=== PATIENT | female | born 1955 | race Caucasian/White ===

== ENCOUNTER 2024-06-13 07:48 | Day surgery (SDC) | payer MEDICARE, OTHER, SELFPAY ==
[2024-06-13] VITALS (21 sets, daily range): BP systolic 92–120; BP diastolic 50–67; PULSE 66–79; RESP 16–18; TEMP 36.6–37.3; O2SAT 74–96; BMI 29.0
--- NOTE | 2024-06-13 08:07 | DCINST_ITS ---
Discharge Instructions Diet Discharge Diet: No restrictions Activity Discharge Activity: Return to Normal Activity (In 2 days) Additional Activity Instructions:: No strenuous activity, exercise or heavy lifting for 2 days Dressing / Incision Call your doctor if your incision/area has: Continuous Slow Oozing, Sudden Increased Bleeding and Foul Smelling Discharge Call your doctor if you observe: Fever of 101 or Higher, Inability to urinate and Inability to have a bowel movement Follow Up Care Please Follow Up With: Jenny Correa MD When: The office will call her to make a follow-up arrangement for in 1 to 2 weeks. Test Results: Test results from this visit will be discussed in further detail at your follow- up appointment, if applicable. Discharge Plan Admission Attending Provider: Jenny Correa Primary Care Provider: [facility] Instructions Print Language: Malawian Discharge Orders/Prescriptions Prescriptions: New cephalexin 500 mg capsule 500 mg PO Q12 3 Days Qty: 6 0RF Continued atorvastatin 80 mg tablet 80 mg PO DAILY citalopram 40 mg tablet 40 mg PO DAILY albuterol sulfate 90 mcg/actuation HFA aerosol inhaler 2 puff INHALATION Q4H PRN PRN (Reason: wheezing) bupropion HCl 150 mg tablet extended release 24 hr 150 mg PO DAILY budesonide-formoterol 160-4.5 mcg/actuation HFA aerosol inhaler 2 puff INHALATION BID gabapentin 300 mg capsule 300 mg PO DAILY aspirin [Ban Chewable Aspirin] 81 mg tablet,chewable 1 tab PO DAILY Referrals / Follow Up: [facility] [Other] Disposition Disposition (needs filled in before D/C Order can be placed): Home, Self Care
--- NOTE | 2024-06-13 08:16 | PCM.PRE.AN2 ---
ASA Classification* ASA Classification ASA Classification: 2 Assessment & Plan Anesthesia* Anesthesia Assessment Anesthesia Assessment: Discussed sedation and/or anesthesia options, risks, benefits, and alternatives with patient/parents/legal guardian/POA. Questions invited. The patient/parents/legal guardian/POA seems to understand and agrees to proceed with anesthesia plan. Reviewed the physical assessment, medical history, allergy history and patient home medications list prior to surgery/procedure/anesthetic and documented any changes. Performed airway and anesthesia risk assessments. 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 When Was Last Pacemaker Check QUESTION #4 FULL TEXT: You/Your Family Experience fever (hyperthermia) with Anesthesia Last Oral Intake Last Oral intake: Last Oral Intake NPO since Meds taken in AM with sips of water? Meds patient instructed to take am of surgery PONV PONV - catalyst operator chief: PONV - catalyst operator chief Female Yes 05/30/24 14:00 HX of Motion Sickness No 05/30/24 14:00 HX of N/V After Surgery No 05/30/24 14:00 Non-Smoker Yes 05/30/24 14:00 Duration of Surgery greater No 05/30/24 14:00 than 60 minutes Number of Risk Factors 2 05/30/24 14:00 PONV Score Moderate Risk 05/30/24 14:00 Respiratory Assessment Respiratory Assessment - catalyst operator chief: Respiratory Tract Infection Hx - catalyst operator chief Hx Respiratory Tract Infection No 05/30/24 14:00 STOP Sleep Apnea STOP Sleep Apnea - catalyst operator chief: STOP Sleep Apnea - catalyst operator chief Hx Hypertension No 05/30/24 14:00 Hx Sleep Apnea No 05/30/24 14:00 CPAP BIPAP Do you snore loudly (louder No 05/30/24 14:00 than talking or can be heard Do you often feel tired/ No 05/30/24 14:00 fatigued/ sleepy during daytime? Has anyone observed you stop No 05/30/24 14:00 breathing during sleep? STOP Results Negative 05/30/24 14:00 QUESTION #5 FULL TEXT : Do you snore loudly (louder than talking or can be heard through closed doors)? 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 Specify any problems Hx of Preganancy in last 3 No 05/30/24 14:00 Months Nurse Filling Out Transfusion JZOLLINGE 05/30/24 14:00 & Questions: Date: 05/30/24 05/30/24 14:00 Time: 14:02 05/30/24 14:00 Patient unable to answer at this time (ie. confused, unrespo /Reproduction History /Reproductive History - catalyst operator chief: /Reproductive Hx- catalyst operator chief Hx Now No 05/30/24 14:00 Gestational Age (in weeks): EDC: Hx Hx Para Hx Section SAB No 05/30/24 14:00 Active Medications Active Medications: Current Medications Generic Name Dose Route Start Last Admin Trade Name Freq PRN Reason Stop Dose Admin Cefazolin Sodium 2 gm/ Sodium 110 mls @ 150 mls/hr 06/13/24 09:20 Chloride IV 06/13/24 10:03 INTRAOP ONE Lactated Ringer's 1,000 mls @ 15 mls/hr 06/13/24 08:00 IV .Q48H HERNANDEZ PFSH Medical History Post-menopausal Wears glasses Depression Former smoker Asthma Shortness of breath on exertion Home Medications ?Medication ?Instructions ?Recorded ?Last Taken ?Type albuterol sulfate 90 mcg/actuation 2 puff inhalation Q4H PRN PRN 05/30/24 Unknown History aerosol inhaler wheezing aspirin 81 mg chewable tablet 1 tab PO DAILY 05/30/24 06/12/24 History (Ban Chewable Low Dose Aspirin) atorvastatin 80 mg tablet 80 mg PO DAILY 05/30/24 06/12/24 History budesonide-formoterol HFA 160 2 puff inhalation BID 05/30/24 06/13/24 06:00 History mcg-4.5 mcg/actuation aerosol inhaler bupropion HCl 150 mg 24 hr tablet, 150 mg PO DAILY 05/30/24 06/12/24 History extended release citalopram 40 mg tablet 40 mg PO DAILY 05/30/24 06/12/24 History gabapentin 300 mg capsule 300 mg PO DAILY 05/30/24 06/12/24 History cephalexin 500 mg capsule 500 mg PO Q12 post-operative 3 06/13/24 Unknown Rx days #6 CAPSULES Allergy/AdvReac Type Severity Reaction Status Date / Time No Known Allergies Allergy Verified 06/13/24 08:11 Surgical History Hx of section Hx of cholecystectomy Hx of colonoscopy Social History Smoking Status: Former smoker Review of Systems (Anesthesia) ROS Narrative System reviewed and no additional complaints, except as documented.
[2024-06-13] MEDS: Lactated Ringers 1,000 ML 15 ML IV (08:28)
[2024-06-13] MEDS: Cefazolin 2 GM in 0.9% Normal Saline (100mL Bag) 100 ML IV (09:35)
--- NOTE | 2024-06-13 09:57 | PCM.POST.ANE ---
Anesthesia: Postop Eval I Current Vital Signs Temperature: 98.1 F Pulse Rate: 74 Blood Pressure: 103/56 Respiratory Rate: 16 Pulse Ox: 74 Oxygen Delivery Method: Simple Mask Oxygen Flow Rate (L/min): 8 Assessment Airway patent: Yes Spontaneous unlabored respirations: Yes Mental status: Awake and Calm nausea: No Vomiting: No Anesthesia Complication: No Fluid Hydration Crystalloid volume administer (ml): 600 Total IV fluid infused: 600 Progress Note Anesthesia document: Postop Eval 1 completed: Yes
--- NOTE | 2024-06-13 10:14 | PCM.OPRPT ---
Operative Report (Standard) Operative Information Date of Procedure: 06/13/24 Pre-Operative Diagnosis: Stress urinary incontinence, intrinsic sphincter deficiency Post-Operative Diagnosis: Same Surgery/Procedure Performed: Cystoscopy with Bulkamid injection cigarette seller: No Type of Anesthesia: MAC RN Documented Start/Stop Times: Operation Date: 06/13/24 09:20 Case Time Into Pre-Op 06/13/24 07:56 Anesthesia Start 06/13/24 09:26 Into Room 06/13/24 09:26 Out of Pre-Op 06/13/24 09:26 Procedure End 06/13/24 09:45 Anesthesia End 06/13/24 09:51 Out of Room 06/13/24 09:51 Into Recovery 06/13/24 09:55 Procedure Start Time: 09:40 Procedure Stop Time: 09:45 Select all DRAINS/GRAFTS/IMPLANTS that apply: Implanted device Implanted device details: Bulkamid Estimated Blood Loss: <5cc Specimen collected: No Description of surgery: The patient is a 69-year-old female with 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 Informed consent was obtained. She was taken to the operating room and placed on the operating room table. Anesthesia monitored the head, neck, airway, IV access and vital signs throughout the case. Once anesthesia was readily ministered she was placed into dorsolithotomy position and was prepped and draped in usual sterile fashion. Using the Bulkamid scope, the urethra was intubated and the end of the scope was placed at the bladder neck. The needle was inserted into the bladder lumen to the 2 cm kiara and the whole apparatus was brought back 2 cm. The needle with the bevel in the medial position was inserted superficially into the urethra at the 7 o'clock position where one half of a syringe was injected and a pillow was formed. This process was then repeated at the 5 o'clock position, 1 o'clock position and 11:00 positions. The tissue appeared to be coapted. The cystoscope was removed. The patient was awakened and taken to the recovery room in good condition. There were no complications during the procedure. Surgical Findings: Wide open urethra consistent with ISD. Complications Complications: No Admit VTE Documentation VTE Present on Admission: Yes VTE Mechan Device Prophylaxis: SCD's VTE Pharm Prophylaxis ordered?: No Reason prophylaxis not ordered: Treatment Not Indicated
[2024-06-13] MEDS: Ipratropium/Albuterol Sulfate 3 ML AMPUL.NEB INHALATION (11:17)
--- NOTE | 2024-06-13 15:07 | POSTOPAN2_ITS ---
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 Spontaneous unlabored Yes 06/13/24 09:58 METAL WINDOW SCREEN [email or web address] respirations Mental status Awake,Calm 06/13/24 09:58 METAL WINDOW SCREEN [email or web address] nausea No 06/13/24 09:58 METAL WINDOW SCREEN [email or web address] Vomiting No 06/13/24 09:58 METAL WINDOW SCREEN [email or web address] Anesthesia Postop Eval I: Fluid Summary Crystalloid volume administer 600 06/13/24 09:58 METAL WINDOW SCREEN [email or web address] (ml) Colloids volume administered ( ml) Blood Product volume administered (ml) Total IV fluid infused 600 06/13/24 09:58 METAL WINDOW SCREEN [email or web address] Anesthesia Postop Eval I: Summary Notes Anesthesia Complication No 06/13/24 09:58 METAL WINDOW SCREEN [email or web address] Anesthesia Complication Comment: Post-operative progress note Anesthesia: Postop Eval II Evaluation Mental status: Awake and Calm Pain Level: 0 nausea: No Vomiting: No Progress Note Post-operative progress note: Patient took a prolonged amount of time in PACU to get off of her nasal cannula oxygen. She was not short of breath. She was not overly sedated. Every trial of room air the patient would drop into the mid to low 80s. We had the patient regularly using an inspiratory spirometer and gave her a DuoNeb breathing treatment. She was otherwise asymptomatic and her vital signs were stable. Eventually at almost 3 hours the patient did manage to keep her sats above 90% and the patient was discharged from PACU. She is instructed to continue to use her inspiratory spirometer for the next day. Complications Anesthesia Complication: Yes Anesthesia Complication Comment:: Prolonged stay in PACU secondary to desaturation on room air with no clear-cut etiology. Patient was only on MAC sedation anesthetic. She was then awake and alert the entire PACU stay. Sedation does not seem to explain the poor saturations.
--- NOTE | 2024-07-18 11:20 | PCM.HP.STD ---
HPI - General HPI Narrative KASSANDRA SMITH, is a 69 F who presents for cystoscopy and Bulkamid injection for management of her intrinsic sphincter deficiency and stress urinary incontinence. Informed consent was PFS Medical History (Updated 07/18/24 @ 11:[address] Jenny Correa MD) SHAQ (stress urinary incontinence, female) Intrinsic sphincter deficiency Post-menopausal Wears glasses Depression Former smoker Asthma Shortness of breath on exertion Home Medications ?Medication ?Instructions ?Recorded ?Last Taken ?Type albuterol sulfate 90 mcg/actuation 2 puff inhalation Q4H PRN PRN 05/30/24 Unknown History aerosol inhaler wheezing aspirin 81 mg chewable tablet 1 tab PO DAILY 05/30/24 06/12/24 History (Ban Chewable Low Dose Aspirin) atorvastatin 80 mg tablet 80 mg PO DAILY 05/30/24 06/12/24 History budesonide-formoterol HFA 160 2 puff inhalation BID 05/30/24 06/13/24 06:00 History mcg-4.5 mcg/actuation aerosol inhaler bupropion HCl 150 mg 24 hr tablet, 150 mg PO DAILY 05/30/24 06/12/24 History extended release citalopram 40 mg tablet 40 mg PO DAILY 05/30/24 06/12/24 History gabapentin 300 mg capsule 300 mg PO DAILY 05/30/24 06/12/24 History cephalexin 500 mg capsule 500 mg PO Q12 post-operative 3 06/13/24 Unknown Rx days #6 CAPSULES Allergy/AdvReac Type Severity Reaction Status Date / Time No Known Allergies Allergy Verified 06/13/24 08:11 Surgical History Hx of section Hx of cholecystectomy Hx of colonoscopy Social History Smoking Status: Former smoker ROS Constitutional Constitutional: Reports systems reviewed and no addt'l complaints, except as documented; Denies change in weight, chills, fatigue, fever(s) or weakness Eyes Eyes: Reports systems reviewed and no addt'l complaints, except as documented ENT HEENT: Reports systems reviewed and no addt'l complaints, except as documented Cardiovascular Cardiovascular: Denies chest pain, dizziness, dyspnea, lightheadedness, nausea, tachypnea or vomiting Respiratory/Chest Respiratory/Chest: Denies chest congestion, chest tightness or cough Gastrointestinal Gastrointestinal: Denies abdominal pain, change in bowel habits, nausea or vomiting Genitourinary Genitourinary: Reports urinary incontinence; Denies anuria, hematuria, urinary frequency or urinary urgency Musculoskeletal Musculoskeletal: Reports systems reviewed and no addt'l complaints, except as documented; Denies difficulty walking, muscle weakness or numbness Integumentary Integumentary: Reports systems reviewed and no addt'l complaints, except as documented Neurologic Neurologic: Reports systems reviewed and no addt'l complaints, except as documented Psychiatric Psychiatric: Reports systems reviewed and no addt'l complaints, except as documented Endocrine Endocrinology: Reports systems reviewed and no addt'l complaints, except as documented Hematologic/Lymphatic Hematologic/Lymphatic: Reports systems reviewed and no addt'l complaints, except as documented Allergic/Immunologic Allergic/Immunologic: Reports systems reviewed and no addt'l complaints, except as documented Vital Signs Vital Signs Vital Signs: Weight Weight: 83.915 kg Body Mass Index (BMI) 29.0 Physical Exam Const alert, oriented x3 and no apparent distress General Appearance: cooperative, comfortable, well kempt and well developed HEENT normocephalic, head/scalp atraumatic, hearing grossly normal bilaterally, external ears normal, external nose normal and moist oral mucous membranes Eyes General Eye: normal appearance of both eyes Neck supple General: trachea midline Lymph Lymphatic: no lymphedema noted Chest inspection of chest normal Chest: symmetrical chest wall rise Resp normal respiratory effort, normal air movement and no retractions Effort and Inspection: able to speak in complete sentences and symmetric chest movement Cardio regular rate and regular rhythm GI soft to palpation, non-tender and non-distended no CVA tenderness and external exam normal Back/Spine no CVA tenderness Extremity normal to inspection Skin no rashes or lesions noted, no jaundice, no petechiae and no mottling Neuro oriented x3, CN's II-XII intact bilaterally and moves all extremities Psych mental status grossly normal, thought process normal and cooperative Assessment & Plan Assessment/Plan (1) Intrinsic sphincter deficiency: (2) SHAQ (stress urinary incontinence, female): PLAN: Plan Proceed with cystoscopy and Bulkamid as scheduled
== END 2024-06-13 13:47 | disposition home or self-care (01) ==
LOC: SDC 07:50 → AC 07:51
PROVIDERS: Referring Provider Urology; Visit Provider Urology
PROC: 3E0K8GC Introduction of Other Therapeutic Substance into Genitourinary Tract, Via Natural or Artificial Opening Endoscopic (ICD-10-PCS; CPT 52287; principal; 2024-06-13 09:10)
DX: N39.3 Stress incontinence (female) (male) (principal); N36.42 Intrinsic sphincter deficiency (ISD); F32.A Depression, unspecified; Z79.82 Long term (current) use of aspirin; Z79.899 Other long term (current) drug therapy; Z87.891 Personal history of nicotine dependence
CPT/HCPCS: 51715; 00910; 94640; L8606; J2405

== ENCOUNTER 2024-09-26 06:53 | Day surgery (SDC) | payer MEDICARE, OTHER, SELFPAY ==
[2024-09-26] VITALS (8 sets, daily range): BP systolic 94–120; BP diastolic 51–71; PULSE 67–87; RESP 16–18; TEMP 2.4–36.7; O2SAT 92–99; BMI 28.0
--- OUTSIDE RECORDS SUMMARY | 2024-09-26 07:00 | XMS RPT_ITS | CCD ---
Author Organization [facility] Care Team Providers Care Bi Tri Operator Name Role Phone MASOODLLI, ALTHEA Unavailable Unavailable NETTIE, ALTHEA Unavailable Unavailable MACK RASMUSSEN Unavailable Unavailable Marcela Buchanan Unavailable Unavailable Unavailable Marcela Buchanan MD Primary Care Provider Naty Hall Unavailable Marcela Buchanan MD Primary Care Provider Marcela Buchanan MD Primary Care Provider Marcela Buchanan MD Primary Care Provider Naty Hall DO Primary Care Provider Naty Hlal DO Unavailable [phone] Ashtyn Rome LPN Unavailable Unavailable Marcela Buchanan MD Primary Care Provider Marcela Buchanan MD Primary Care Provider [phone] Bright Escobedo DO A Primary Care Provider Mray Shi LPN Unavailable Unavailable Jennifer Wen RN Unavailable Unavailable Gregg DO Bright A Primary Care Provider BRIGHT ESCOBEDO A Primary Care Unavailable DEBRA MEJIA Referring Unavailable QIAN ESCOBEDOEY A Primary Care Unavailable Miguel Hdez LPN Unavailable IVAN TALAVERA Referring Unavailable EL, MARCELA Primary Care Unavailable IVAN TALAVERA Referring Unavailable EL, MARCELA Primary Care Unavailable KAYODE MCKEON Attending Unavailable SELF Referring Unavailable EL, MARCELA Primary Care Unavailable APICELLA, IVAN Attending Unavailable EL, MARCELA Primary Care Unavailable APICELLA, IVAN Referring Unavailable EL, MARCELA Primary Care Unavailable APICELLA, IVAN Referring Unavailable EL, MARCELA Primary Care Unavailable APICELLA, IVAN Attending Unavailable APICELLA, IVAN Referring Unavailable EL, MARCELA Primary Care Unavailable KAYODE MCKEON Referring Unavailable EL, MARCELA Primary Care Unavailable LESLIEABKAYODE ERIC Referring Unavailable EL, MARCELA Primary Care Unavailable APICELLA, IVAN Attending Unavailable APICELLA, IVAN Referring Unavailable EL, MARCELA Primary Care Unavailable APICELLA, IVAN Referring Unavailable EL, MARCELA Primary Care Unavailable APICELLA, IVAN Referring Unavailable EL, MARCELA Primary Care Unavailable LESLIEABBAKAYODE KAMINSKI Attending Unavailable APICELLA, IVAN Referring Unavailable EL, MARCELA Primary Care Unavailable KHABBAZA, KAYODE Referring Unavailable EL, MARCELA Primary Care Unavailable GURRERI, BRIGHT A Attending Unavailable GURRERI, BRIGHT A Primary Care Unavailable GURRERI, BRIGHT A Attending Unavailable GURRERI, BRIGHT A Primary Care Unavailable GURRERI, BRIGHT A Attending Unavailable GURRERI, BRIGHT A Primary Care Unavailable GURRERI, BRIGHT A Attending Unavailable GURRERI, BRIGHT A Primary Care Unavailable GURRERI, BRIGHT A Attending Unavailable GURRERI, BRIGHT A Primary Care Unavailable Sunny MEJIA, Dr. Alvarado Attending Provider Dr. Jenny Correa MD Referring Provider BRIGHT ESCOBEDO Primary Care Provider [phone] GREGG AMADOR Primary Care Provider Unavailabl e GREGG, AMADOR Referring Provider Unavailable GONZALEZ AYERS Attending Unavailable GURRERI, BRIGHT A Referring Unavailable GURRERI, BRIGHT A Primary Care Unavailable SOFIA WADE Attending Unavailable GURRERI, BRIGHT A Primary Care Unavailable SOFIA WADE Admitting Unavailable ALTAQI, BASEL Consulting Unavailable GURRERI, BRIGHT A Consulting Unavailable DEBRA MEJIA Attending Unavailable GURRERI, BRIGHT A Referring Unavailable GURRERI, BRIGHT A Primary Care Unavailable GURRERI, BRIGHT A Referring Unavailable GURRERI, BRIGHT A Primary Care Unavailable GURRERI, BRIGHT A Referring Unavailable GURRERI, BRIGHT A Primary Care Unavailable JACKIEDEBRA Alicia Attending Unavailable GURRERI, BRIGHT A Primary Care Unavailable MAHERJORDAN Attending Unavailable GURRERI, BRIGHT A Primary Care Unavailable GURRERI, BRIGHT A Primary Care Unavailable GURRERI, BRIGHT A Admitting Unavailable GURRERI, BRIGHT A Attending Unavailable GURRERI, BRIGHT A Consulting Unavailable GURRERI, BRIGHT A Primary Care Unavailable GURRERI, BRIGHT A Primary Care Unavailable MAHER, JORDAN S Attending Unavailable MAHER, JORDAN S Referring Unavailable GURRERI, BRIGHT A Primary Care Unavailable MAHER, JORDAN S Referring Unavailable GURRERI, BRIGHT A Primary Care Unavailable GURRERI, BRIGHT A Referring Unavailable GURRERI, BRIGHT A Primary Care Unavailable GURRERI, BRIGHT A Referring Unavailable GURRERI, BRIGHT A Primary Care Unavailable GURRERI, BRIGHT A Referring Unavailable GURRERI, BRIGHT A Primary Care Unavailable GURRERI, BRIGHT A Referring Unavailable GURRERI, BRIGHT A Primary Care Unavailable Binh, Mireya Barlow DETAIL SERGEANT Referring Unavailable Jenny Correa Attending Unavailable [place], Mireya S DETAIL SERGEANT Primary Care Unavailable [place], Mireya S DETAIL SERGEANT Primary Care Unavailable Jenny Correa Attending Unavailable Jenny Correa Referring Unavailable Binh, Mireya Barlow DETAIL SERGEANT Primary Care Unavailable Jenny Correa Attending Unavailable Jenny Correa Referring Unavailable Medications Current Medications Medication Drug Class(es) Dates Sig (Normalized) Sig (Original) acetaminophen 500 mg oral tablet (10 sources) Start: 09-12-2024 take 1 tablet by mouth every six hours as needed for pain Acetaminophen 500 mg tablet Active 500 mg PO EVERY 6 HOURS as needed for fever or pain September 12, 2024 12:00am Start: 08-15-2024 take 1 tablet by peggy th every eight hours 975 mg, oral, Every 8 hours, First dose (after last modification) on Jacqueline 08/15/24 at 0915, If ordered PRN for pain, nurse is permitted to administer this medication for higher pain scores based on patient preference? Yes Start: 08-14-2024 End: 08-17-2024 take 2 tablets by mouth every six hours for pain acetaminophen (Tylenol) 500 mg tablet Indications: Rotator cuff strain, right, initial encounter Take 2 tablets (1,000 mg) by mouth every 6 hours if needed for mild pain (1 - 3). 60 tablet 08/17/2024 Active Start: 08-14-2024 End: 08-14-2024 take 650 mg by mouth once as needed for pain 650 mg, oral, Once, On Mon08/14/24 at 0830, For 1 dose, Preprocedure, Administer with small amount of water preoperatively., If ordered PRN for pain, nurse is permitted to administer this medication for higher pain scores based on patient preference? Yes Start: 01-05-2024 End: 01-12-2024 take 2 tablets by mouth every six hours acetaminophen (Tylenol) 500 mg tablet Indications: Closed fracture of multiple ribs of right side, initial encounter Take 2 tablets (1,000 mg) by mouth every 6 hours for 7 days. 56 tablet 01/05/2024 12:42 PM EST 01/05/2024 01/12/2024 Active Start: 01-04-2024 take 975 mg by mouth three times daily as needed for pain 975 mg, oral, 3 times daily, First dose (after last modification) on Jacqueline 01/04/24 at 1500, If ordered PRN for pain, nurse is permitted to administer this medication for higher pain scores based on patient preference? Yes Start: 01-03-2024 End: 01-04-2024 take 975 mg by mouth every six hours as needed for pain 975 mg, oral, Every 6 hours scheduled, First dose on Mon01/03/24 at 0000, Phase II/On Unit, If ordered PRN for pain, nurse is permitted to administer this medication for higher pain scores based on patient preference? Yes [id number] 200 actuat albuterol 0.09 mg/actuat metered dose inhaler (20 sources) beta2-Adrenergic Agonist Start: 05-30-2024 Albut bernice Sulfate 90 mcg/actuation HFA aerosol inhaler Active 2 NMA INHALATION EVERY 4 HOURS NEEDED as needed for wheezing May 30, 2024 12:00am Start: 01-03-2024 2.5 mg, nebuli zation, Every 2 hour PRN, shortness of breath, Starting on Mon01/03/24 at 0021 Start: 01-03-2024 take 2 puff(s) by in halation every two hours as needed for wheezing 2 puff, inhalation, Every 2 hour PRN, wheezing, Starting on Mon01/03/24 at 0020, Shake well before use. Start: 05-18-2023 End: 05-31-2024 take 2 puff(s) by inhalation every four hours as needed for wheezing albuterol HFA (PROVENTIL HFA, VENTOLIN HFA) 90 mcg/actuation inhaler Indications: Uncomplicated asthma, unspecified asthma severity, unspecified whether persistent (HCC) Inhale 2 Puffs as instructed every 4 hours as needed for wheezing/shortness of breath. 8 g 5 05/18/2023 Active Start: 05-28-2021 take 2.5 mg by inhal ation every four hours as needed albuterol (PROVENTIL) 2.5 mg /3 mL (0.083 %) nebulizer solution Use 3 mL via nebulizer every 4 hours as needed for wheezing/shortness of breath. 120 Vial 1 05/28/2021 Active Start: 05-28-2021 take 1 puff(s) by in halation every four hours as needed for wheezing, then take 1-2 puff(s) by inhalation every four to six hours as needed for wheezing albuterol HFA (PROVENTIL HFA, VENTOLIN HFA) 90 mcg/actuation inhaler Inhale 1 Puff as instructed every 4 hours as needed for wheezing/shortness of breath. Inhale 1 to 2 puffs every 4 to 6 hours as needed 1 Inhaler 1 05/28/2021 Active Start: 05-28-2021 End: 05-31-2024 take 2.5 mg by inhalation every four hours as needed albuterol 2.5 mg /3 mL (0.083 %) nebulizer solution Inhale 3 mL (2.5 mg) every 4 hours if needed for shortness of breath. 05/28/2021 05/31/2024 Discontinued (Med List Cleanup) Start: 12-06-2019 take 1-2 puff(s) by mouth every four to six hours as needed Albuterol Sulfate HFA 108 (90 Base) MCG/ACT Inhalation Aerosol Solution INHALE 1 TO 2 PUFFS BY MOUTH EVERY 4 TO 6 HOURS NEEDED Quantity: 1 Refills: 3 Ordered: 17-Sep-2020 Marcela Buchanan MD Start : 06-Dec-2019 Active Start: 12-06-2019 take 1-2 puff(s) by mouth every four to six hours as needed Albuterol Sulfate HFA 108 (90 Base) MCG/ACT Inhalation Aerosol Solution INHALE 1 TO 2 PUFFS BY MOUTH EVERY 4 TO 6 HOURS NEEDED Quantity: 1 Refills: 3 Ordered: 17-Sep-2020 Marcela Buchanan MD Start : 06-Dec-2019 Active Comment on above: Inhale 1 Puff as ins tructed every 4 hours as needed for wheezing/shortness of breath. Inhale 1 to 2 puffs every 4 to 6 hours as needed Use 3 mL via nebuliz er every 4 hours as needed for wheezing/shortness of breath. Inhale 2 Puffs as in structed every 4 hours as needed for wheezing/shortness of breath. ascorbic acid 200 mg / beta carotene 1000 unt / cuprous oxide 2 mg / dl-alpha tocopheryl acetate 60 unt / lutein 2 mg / sodium selenate 0.055 mg / zinc oxide 40 mg oral tablet (20 sources) Vitamin C Start: 0 End: 2 take 1 tablet by mouth once daily Vit A,C and Q-Eaglcn-Olfdtd ls (OCUVITE) 300 mcg-200 mg-27 mg-2 mg tab Take 1 tablet by mouth once daily. 10/18/2019 Active Comment on above: Take 1 tablet by peggy th once daily. aspirin 81 mg delayed release oral tablet (20 sources) Platelet Aggregation Inhibitor, Nonsteroidal Anti-inflammatory Drug Start: 5 take 81 mg by mouth once daily 81 mg, oral, Daily, First dose on Mon08/14/24 at 1900, Do not crush, chew, or split. Start: 05-30-2024 Aspirin (Ban Chewable Aspirin) 81 mg tablet,chewable Active 1 {tbl} PO DAILY May 30, 2024 12:00am Comment on above: Take 81 mg by mouth once daily. atorvastatin 80 mg oral tablet (20 sources) HMG-CoA Reductase Inhibitor Start: 6 End: 5 take 1 tablet by mouth once daily Atorvastatin 80 mg tablet Active 80 mg PO DAILY May 30, 2024 12:00am Comment on above: Take 80 mg by mouth daily at bedtime. Take 1 tablet by peggy th daily at bedtime. Budesonide-Formoterol (17 sources) Corticosteroid, beta2-Adrenergic Agonist Start: Budesonide-Formoterol 160-4.5 mcg/actuation HFA aerosol inhaler Active 2 NMA INHALATION TWICE A DAY as needed for wheezing May 30, 2024 12:00am Start: 05-15-2024 End: 08-19-2024 take 2 puff(s) by inhalation twice daily budesonide-formoterol (SYMBICORT) 160-4.5 mcg/actuation inhaler Indications: Uncomplicated asthma, unspecified asthma severity, unspecified whether persistent (HCC) Inhale 2 Puffs as instructed two times a day. 10.2 g 5 05/15/2024 08/19/2024 Discontinued Start: 05-15-2024 End: 08-01-2024 take 2 puff(s) by inhalation twice daily budesonide-formoterol (Symbicort) 160-4.5 mcg/actuation inhaler Inhale 2 puffs twice a day. 05/15/2024 08/01/2024 Discontinued (Med List Cleanup) Start: 05-15-2024 take 2 puff(s) by in halation twice daily budesonide-formoterol (Symbicort) 160-4.5 mcg/actuation inhaler Inhale 2 puffs twice a day. 05/15/2024 Active Start: 05-15-2024 End: 06-14-2024 take 2 puff(s) by inhalation twice daily budesonide-formoterol (Symbicort) 160-4.5 mcg/actuation inhaler Inhale 2 puffs twice a day. 05/15/2024 06/14/2024 Active Start: 05-15-2024 End: 06-14-2024 take 2 puff(s) by inhalation twice daily budesonide-formoterol (SYMBICORT) 160-4.5 mcg/actuation inhaler Indications: Uncomplicated asthma, unspecified asthma severity, unspecified whether persistent (HCC) Inhale 2 Puffs as instructed two times a day. 10.2 g 5 05/15/2024 06/14/2024 Active Start: 05-15-2024 End: 05-15-2024 take 2 puff(s) by inhalation twice daily budesonide-formoterol (SYMBICORT) 160-4.5 mcg/actuation inhaler Indications: Uncomplicated asthma, unspecified asthma severity, unspecified whether persistent (HCC) Inhale 2 Puffs as instructed two times a day. 10.2 g 5 05/15/2024 05/15/2024 Discontinued Start: 05-18-2023 End: 05-18-2023 take 2 puff(s) by inhalation twice daily budesonide-formoterol (SYMBICORT) 160-4.5 mcg/actuation inhaler Indications: Uncomplicated asthma, unspecified asthma severity, unspecified whether persistent Inhale 2 Puffs as instructed two times a day. 11 g 5 05/18/2023 05/18/2023 Discontinued (Changing Therapy/Dosage Form) Comment on above: Inhale 2 Puffs as in structed two times a day. 24 hr buPROPion hydrochloride 150 mg extended release oral tablet (20 sources) Aminoketone Start: End: take 1 tablet by mouth once daily Bupropion Hcl 150 mg tablet extended release 24 hr Active 150 mg PO DAILY May 30, 2024 12:00am take 1 tablet by mouth once stephanie y buPROPion SR (WELLBUTRIN SR) 150 mg 12 hr tablet Take 150 mg by mouth once daily. Active calcium carbonate 1500 mg oral tablet (20 sources) Start: 10-18-2019 take 1 tablet by mouth once daily calcium carbonate (CALTRATE) 600 mg calcium (1,500 mg) tab Take 1,200 mg by mouth once daily. 10/18/2019 Active Start: 10-18-2019 End: 11-09-2021 Calcium 600 MG TABS TAKE 1 T ABLET DAILY. Quantity: 0 Refills: 0 Ordered: 18-Oct-2019 DO Start : 18-Oct-2019 End : 09-Nov-2021 Complete Comment on above: Take 1,200 mg by peggy th once daily. citalopram 20 mg oral tablet (20 sources) Serotonin Reuptake Inhibitor Start: 08-14-2024 take 40 mg by mouth once daily 40 mg, oral, Daily, First dose on Mon08/14/24 at 1900 Start: 01-03-2024 take 40 mg by mouth once daily 40 mg, oral, Daily, First dose on Mon01/03/24 at 0900 Start: 05-26-2015 End: 05-31-2025 take 1 tablet by mouth once daily Citalopram 40 mg tablet Active 40 mg PO DAILY May 30, 2024 12:00am Comment on above: Take 40 mg by mouth once daily. docusate sodium 50 mg / sennosides, fdc 8.6 mg oral tablet (2 sources) Start: 08-15-2024 take 1 tablet by mouth once daily 1 tablet, oral, Nightly, First dose on Mon08/15/24 at 2100 Start: 01-04-2024 take 1 tablet by peggy th twice daily 1 tablet, oral, 2 times daily, First dose on Mon01/04/24 at 0900 0.4 ml enoxaparin sodium 100 mg/ml prefilled syringe (2 sources) Low Molecular Weight Heparin Start: 08-14-2024 inject 40 mg by subcutaneous injection once daily 40 mg, subcutaneous, Daily, First dose on Mon08/14/24 at 1915 Start: 01-02-2024 inject 30 mg by subc utaneous injection every twelve hours 30 mg, subcutaneous, Every 12 hours, First dose on Mon01/02/24 at 2335 120 actuat fluticasone propionate 0.23 mg/actuat / salmeterol 0.021 mg/actuat metered dose inhaler (20 sources) Corticosteroid, beta2-Adrenergic Agonist Start: 10-04-2023 take 2 puff(s) by mouth twice daily fluticasone propion-salmeteroL (Advair HFA) 230-21 mcg/actuation inhaler Indications: Mild persistent asthma without complication (HHS-HCC) Inhale 2 puffs 2 times a day. Rinse mouth with water after use to reduce aftertaste and incidence of candidiasis. Do not swallow. 12 g 11 10/04/2023 Active Start: 07-20-2023 End: 08-19-2023 take 2 puff(s) by inhalation twice daily fluticasone-salmeterol HFA (ADVAIR HFA) 230-21 mcg/actuation inhaler Indications: Hypersensitivity pneumonia (HCC) , Uncomplicated asthma, unspecified asthma severity, unspecified whether persistent Inhale 2 Puffs as instructed two times a day. 12 g 5 07/20/2023 Active Start: 05-18-2023 End: 08-19-2024 take 1 puff(s) by inhalation twice daily fluticasone-salmeterol (ADVAIR DISKUS) 500-50 mcg/dose dsdv Inhale 1 Puff as instructed two times a day. 60 Each 5 05/18/2023 08/19/2024 Discontinued Start: 05-18-2023 take 1 puff(s) by in halation twice daily fluticasone-salmeterol (ADVAIR DISKUS) 500-50 mcg/dose dsdv Inhale 1 Puff as instructed two times a day. 60 Each 5 05/18/2023 Active Start: 05-18-2023 End: 11-14-2023 take 1 puff(s) by inhalation twice daily fluticasone-salmeterol (ADVAIR DISKUS) 500-50 mcg/dose dsdv Inhale 1 Puff as instructed two times a day. 60 Each 5 05/18/2023 11/14/2023 Active Start: 05-18-2023 End: 05-18-2023 take 1 puff(s) by inhalation twice daily fluticasone-salmeterol (ADVAIR DISKUS) 500-50 mcg/dose dsdv Inhale 1 Puff as instructed two times a day. 60 Each 05/18/2023 05/18/2023 Discontinued Start: 03-28-2022 End: 06-16-2023 take 2 puff(s) by inhalation twice daily ADVAIR HFA 230-21 mcg/actuation inhaler Indications: Hypersensitivity pneumonitis (HCC) , Uncomplicated asthma, unspecified asthma severity, unspecified whether persistent INHALE 2 PUFFS INSTRUCTED TWICE DAILY. 12 Each 03/28/2022 09/05/2022 Discontinued Start: 10-22-2021 End: 10-04-2023 take 2 puff(s) by inhalation twice daily Advair HFA 230-21 MCG/ACT Inhalation Aerosol INHALE 2 PUFFS INSTRUCTED TWICE DAILY. Quantity: 12 Refills: 0 Ordered: 22-Oct-2021 DO Start : 22-Oct-2021 Active Start: 10-22-2021 End: 03-28-2022 take 2 puff(s) by inhalation twice daily fluticasone-salmeterol HFA (ADVAIR) 230-21 mcg/actuation inhaler Indications: Hypersensitivity pneumonitis (HCC) , Uncomplicated asthma, unspecified asthma severity, unspecified whether persistent Inhale 2 Puffs as instructed twice daily. 12 g 5 10/22/2021 03/28/2022 Discontinued Start: 10-22-2021 take 2 puff(s) by in halation twice daily fluticasone-salmeterol HFA (ADVAIR) 230-21 mcg/actuation inhaler Indications: Hypersensitivity pneumonitis (HCC) , Uncomplicated asthma, unspecified asthma severity, unspecified whether persistent Inhale 2 Puffs as instructed twice daily. 12 g 5 10/22/2021 Active Start: 07-19-2021 End: 10-22-2021 take 2 puff(s) by inhalation twice daily fluticasone-salmeterol HFA (ADVAIR HFA) 115-21 mcg/actuation inhaler Indications: Uncomplicated asthma, unspecified asthma severity, unspecified whether persistent Inhale 2 Puffs as instructed twice daily. 1 Inhaler 3 07/19/2021 10/22/2021 Discontinued Start: 07-19-2021 End: 10-22-2021 take 2 puff(s) by inhalation twice daily fluticasone-salmeterol HFA (ADVAIR HFA) 115-21 mcg/actuation inhaler Indications: Uncomplicated asthma, unspecified asthma severity, unspecified whether persistent Inhale 2 Puffs as instructed twice daily. 1 Inhaler 3 07/19/2021 10/22/2021 Discontinued Start: 07-19-2021 take 2 puff(s) by in halation twice daily fluticasone-salmeterol HFA (ADVAIR HFA) 115-21 mcg/actuation inhaler Indications: Uncomplicated asthma, unspecified asthma severity, unspecified whether persistent Inhale 2 Puffs as instructed twice daily. 1 Inhaler 3 07/19/2021 Active Start: 06-01-2021 End: 11-09-2021 Fluticasone-Salmeterol 113-1 4 MCG/ACT Inhalation Aerosol Powder Breath Activated INHALE 1 INHALATION INSTRUCTED TWICE DAILY. Quantity: 1 Refills: 0 Ordered: 02-Jun-2021 DO Start : 01-Jun-2021 End : 09-Nov-2021 Complete Comment on above: Inhale 1 Inhalation as instructed twice daily. Inhale 2 Puffs as in structed twice daily. Inhale 1 Puff as ins tructed two times a day. 30 actuat fluticasone furoate 0.2 mg/actuat / vilanterol 0.025 mg/actuat dry powder inhaler (3 sources) Corticosteroid, beta2-Adrenergic Agonist Start: 08-15-2024 take 1 puff(s) by mouth once daily 1 puff, inhalation, Daily RT, First dose on Mon08/15/24 at 0700, Rinse mouth with water after use to reduce aftertaste and incidence of candidiasis. Do not swallow. Start: 01-03-2024 take 1 puff(s) by mo [facility] once daily 1 puff, inhalation, Daily RT, First dose on Mon01/03/24 at 0700, Rinse mouth with water after use to reduce aftertaste and incidence of candidiasis. Do not swallow. Start: 05-28-2021 End: 06-01-2021 fluticasone-vilanterol (BREO ELLIPTA) 100-25 mcg/dose inhaler Inhale 1 Inhalation as instructed once daily. 60 Each 1 05/28/2021 06/01/2021 Discontinued (Cost of medication) Comment on above: Inhale 1 Inhalation as instructed once daily. gabapentin 300 mg oral capsule (19 sources) Anti-epileptic Agent Start: 01-19-2024 End: 05-31-2025 take 1 capsule by mouth once daily Gabapentin 300 mg capsule Active 300 mg PO DAILY May 30, 2024 12:00am Start: 01-04-2024 End: 01-19-2024 take 1 capsule by mouth three times daily gabapentin (Neurontin) 300 mg capsule Indications: Closed fracture of multiple ribs of right side, initial encounter Take 1 capsule (300 mg) by mouth 3 times a day for 7 days. 21 capsule 01/05/2024 12:42 PM EST 01/05/2024 01/19/2024 Discontinued (Reorder) Start: 01-02-2024 End: 01-04-2024 take 1 capsule by mouth three times daily 100 mg, oral, 3 times daily, First dose on Mon01/02/24 at 2335, Phase II/On Unit, Capsules may be opened and sprinkled on food (eg, applesauce, orange juice, pudding ibuprofen 600 mg oral tablet (4 sources) Nonsteroidal Anti-inflammatory Drug Start: 01-02-2024 End: 01-19-2024 take 1 tablet by mouth three times daily at mealtime ibuprofen 600 mg tablet Indications: Closed fracture of multiple ribs of right side, initial encounter Take 1 tablet (600 mg) by mouth 3 times a day for 7 days. Take with Food 21 tablet 01/05/2024 12:42 PM EST 01/05/2024 01/19/2024 Active Start: 04-12-2023 End: 04-17-2023 take 1 tablet by mouth every six hours for pain ibuprofen 600 mg tablet Indications: Sprain of anterior talofibular ligament of left ankle, initial encounter Take 1 tablet (600 mg) by mouth every 6 hours if needed for mild pain (1 - 3) or moderate pain (4 - 6) for up to 5 days. 20 tablet 0 04/12/2023 04/17/2023 Active magnesium amino acid chelate 133 mg oral tablet (3 sources) take 1 tablet by mouth twice daily magnesium, amino acid chelate, 133 mg tablet Take 1 tablet (133 mg) by mouth 2 times a day. Active magnesium oxide 400 mg oral tablet (1 source) Start: 01-03-20 take 400 mg by mouth once daily 400 mg, oral, Daily, First dose on Mon01/03/24 at 0900 meloxicam 15 mg oral tablet (8 sources) Nonsteroidal Anti-inflammatory Drug Start: 06-11-19 End: 10-05-19 take 1 tablet by mouth once daily as needed for pain Meloxicam 15 mg tablet Active 15 mg PO DAILY as needed for moderate pain September 12, 2024 12:00am methocarbamol 500 mg oral tablet (2 sources) Muscle Relaxant Start: 01-02-20 End: 01-04-20 take 500 mg by mouth every eight hours 500 mg, oral, Every 8 hours scheduled, First dose (after last modification) on Mon01/04/24 at 0800 Miscellaneous Medical Supply (20 sources) Start: 05-29-19 Miscellaneous Medical Supply Indications: COPD with chronic bronchitis (HCC) Dispense one nebulizer compressor with lifetime supplies. 1 Each 05/28/2021 Active Start: 05-28-2021 Miscellaneous Medical Supply Indications: COPD with chronic bronchitis Dispense one nebulizer compressor with lifetime supplies. 1 Each 0 05/28/2021 Active Start: 05-28-2021 Miscellaneous Medical Supply Indications: COPD with chronic bronchitis (HCC) Dispense one nebulizer compressor with lifetime supplies. 1 Each 0 05/28/2021 Active Comment on above: Dispense one nebuliz er compressor with lifetime supplies. moxifloxacin 5 mg/ml ophthalmic solution (1 source) Quinolone Antimicrobial Start: 09-13-19 Moxifloxacin 0.5 % drops Active 1 NMA RIGHT EYE 4 TIMES DAILY September 12, 2024 12:00am ondansetron 8 mg disintegrating oral tablet (6 sources) Serotonin-3 Receptor Antagonist Start: 09-13-19 take 1 tablet by mouth every eight hours as needed for nausea and vomiting Ondansetron 8 mg tablet,disintegrati ng Active 8 mg PO EVERY 8 HOURS NEEDED as needed for nausea and vomiting September 12, 2024 12:00am Start: 08-14-2024 End: 08-17-2024 take 1 tablet by mouth every eight hours for nausea ondansetron (Zofran) 4 mg tablet Indications: Rotator cuff strain, right, initial encounter Take 1 tablet (4 mg) by mouth every 8 hours if needed for nausea or vomiting. 10 tablet 08/17/2024 Active Start: 01-02-2024 take 1 tablet by peggy th every eight hours as needed ondansetron (Zofran) tablet 4 mg oxybutynin chloride 5 mg oral tablet (20 sources) Cholinergic Muscarinic Antagonist Start: 01-03-2024 5 mg, oral, 2 times daily, First dose on Mon01/03/24 at 0900, Automatic substitution for detrol la 2mg daily per system policy Start: 09-06-2023 End: 03-04-2024 take 1 tablet by mouth three times daily oxybutynin (Ditropan) 5 mg tablet Indications: Urinary incontinence, unspecified type Take 1 tablet (5 mg) by mouth 3 times a day. 270 tablet 1 09/06/2023 01/19/2024 Discontinued (Med List Cleanup) Start: 02-24-2023 take 1 tablet by peggy th twice daily oxybutynin (Ditropan) 5 mg tablet Indications: Urinary incontinence, unspecified type Take 1 tablet (5 mg) by mouth 2 times a day. 180 tablet 1 02/24/2023 Active Start: 10-11-2022 take 1 tablet by peggy th twice daily oxybutynin (Ditropan) 5 mg tablet Indications: Urinary incontinence, unspecified type Take 1 tablet (5 mg) by mouth 2 times a day. 90 tablet 3 10/11/2022 Active Start: 05-26-2015 End: 08-19-2024 take 1 tablet by mouth twice daily oxybutynin (DITROPAN) 5 mg tablet Take 5 mg by mouth twice daily. 05/26/2015 08/19/2024 Discontinued Comment on above: Take 5 mg by mouth t wice daily. oxygen (O2) therapy (2 sources) Start: 01-03-2024 inhalation, Continuous - Inhalation, First dose (after last modification) on Mon01/03/24 at 2000, Device: High Flow Nasal Cannula (HFNC), HNFC TYPE: LPM Flow and FIO2, Rate in liters per minute: 50 LPM, FiO2: 40%, Keep O2 Sat Above: 90% Start: 01-02-2024 End: 01-03-2024 inhalation, Continuous - Inh alation, First dose on Mon01/02/24 at 2155, Device: High Flow Nasal Cannula (HFNC), HNFC TYPE: LPM Flow and FIO2, Rate in liters per minute: 60 LPM, FiO2: 60%, Keep O2 Sat Above: 90% polyethylene glycol 3350 89719 mg powder for oral solution (11 sources) Osmotic Laxative Start: 01-04-2024 End: 08-01-2024 take 17 g by mouth twice daily as needed polyethylene glycol (Glycolax, Miralax) 17 gram packet Indications: Closed fracture of multiple ribs of right side, initial encounter Mix 1 packet (17 g) with 4 to 8 ounces of water or juice and drink by mouth 2 times a day as needed (If Constipated and no BM in 2 days). 10 packet 01/05/2024 12:42 PM EST 01/05/2024 08/01/2024 Discontinued (Med List Cleanup) Start: 01-03-2024 End: 01-04-2024 17 g, oral, Daily, First dos e on Mon01/03/24 at 0900, Phase II/On Unit, Bowel Regimen - for prevention of constipation. psyllium 3400 mg powder for oral suspension (1 source) Start: 08-15-2024 1 packet, oral, 3 times daily, First dose on Mon08/15/24 at 1500, Give with at least 8 ounces of water or juice tacrolimus 0.001 mg/mg topical ointment (20 sources) Calcineurin Inhibitor Immunosuppressant tacrolimus (PROTOPIC) 0.1 % ointment APPLY TO AFFECTED TWICE DAILY X 14 DAYS, STOP FOR 1 WEEK AND RESUME IF NEEDED Active Comment on above: APPLY TO AFFECTED TW ICE DAILY X 14 DAYS, STOP FOR 1 WEEK AND RESUME IF NEEDED traMADol hydrochloride 50 mg oral tablet (2 sources) Opioid Agonist Start: 08-14-2024 take 1 tablet by mouth every eight hours as needed 50 mg, oral, Every 8 hours PRN, pain severe (7-10), second line, Starting on Mon08/14/24 at 1847, Preprocedure, If ordered PRN for pain, nurse is permitted to administer this medication for higher pain scores based on patient preference? Yes Start: 08-14-2024 End: 08-14-2024 take 50 mg by mouth once as needed for pain 50 mg, oral, Once, On Mon08/14/24 at 0830, For 1 dose, Preprocedure, If ordered PRN for pain, nurse is permitted to administer this medication for higher pain scores based on patient preference? Yes vit C/E/Zn/coppr/lutein/zeax an (EYE HEALTH VITAMIN-MINERAL ORAL) (3 sources) vit C/E/Zn/coppr /lutein/zeaxan (EYE HEALTH VITAMIN-MINERAL ORAL) Take by mouth. Active Completed/Discontinued Medications Medication Drug Class(es) Dates Sig (Normalized) Sig (Original) albuterol 0.833 mg/ml / ipratropium bromide 0.167 mg/ml inhalation solution (2 sources) Anticholinergic, beta2-Adrenergic Agonist Start: 08-14-2024 End: 08-14-2024 3 mL, nebulization, Every 6 hours RT, First dose on Mon08/14/24 at 0900, Preprocedure Start: 01-03-2024 3 mL, nebuliza tion, 2 times daily RT, First dose (after last modification) on Mon01/03/24 at 1900 budesonide 0.25 mg/ml inhalation suspension (4 sources) Corticosteroid Start: 11-25-2022 End: 03-19-2023 budesonide (PULMICORT) 0.5 mg/2 mL nebulizer solution Indications: Uncomplicated asthma, unspecified asthma severity, unspecified whether persistent , Hypersensitivity pneumonia (HCC) Use 2 mL via nebulizer two times a day. 120 mL 2 12/19/2022 03/19/2023 Comment on above: Use 2 mL via nebuliz er two times a day. calcium chloride 0.0014 meq/ml / potassium chloride 0.004 meq/ml / sodium chloride 0.103 meq/ml / sodium lactate 0.028 meq/ml injectable solution (3 sources) Start: 01-04-2024 End: 01-04-2024 500 mL, intravenous, at 500 mL/hr, Administer over 1 Hours, Once, On Jacqueline 01/04/24 at 1715, For 1 dose Start: 09-29-2023 take 20 mL intraveno usly every hour 20 mL/hr, intravenous, Continuous, Starting on Mon09/29/23 at 0800, Preprocedure celecoxib 100 mg oral capsule (1 source) Nonsteroidal Anti-inflammatory Drug Start: 08-14-2024 End: 08-14-2024 take 1 capsule by mouth once 200 mg, oral, Once, On Mon08/14/24 at 0830, For 1 dose, Preprocedure, Administer with small amount of water preoperatively. Capsules may be opened and sprinkled on a spoonful of cold or room temperature applesauce. cephalexin 500 mg oral capsule (1 source) Cephalosporin Antibacterial Start: 06-13-2024 End: 09-12-2024 take 1 capsule by mouth every twelve hours Cephalexin 500 mg capsule Discontinued 500 mg PO EVERY 12 HOURS 6 3 0 June 13, 2024 12:00am September 12, 2024 1:41pm post-operative chlorhexidine gluconate 1.2 mg/ml mouthwash (2 sources) Start: 08-05-2024 End: 08-17-2024 chlorhexidine (Hibiclens) 4 % external liquid Indications: Preop testing Apply topically once daily for 5 days. Wash daily for 5 days prior to surgery with day 5 being morning of surgery. 118 mL 08/05/2024 08/17/2024 Discontinued (Stop Taking at Discharge) Start: 08-05-2024 End: 08-17-2024 take 15 mL by mouth once daily in the morning chlorhexidine (Peridex) 0.12 % solution Indications: Preop testing Use 15 mL in the mouth or throat once daily for 2 doses. Swish and Spit day before surgery and again morning on day of surgery. 30 mL 08/05/2024 08/17/2024 Discontinued (Stop Taking at Discharge) clobetasol propionate 0.0005 mg/mg topical ointment (4 sources) Corticosteroid Start: 11-01-2021 End: 11-09-2021 Clobetasol Propionate 0.05 % External Ointment APPLY SPARINGLY TO AFFECTED AREAS TWICE DAILY Quantity: 1 Refills: 2 Ordered: 01-Nov-2021 Irasema Pickering Start : 01-Nov-2021 End : 09-Nov-2021 Complete clotrimazole 10 mg/ml topical cream (8 sources) Azole Antifungal Start: 09-17-2020 End: 09-28-2023 clotrimazole (Lotrimin) 1 % cream every 12 hours. 09/17/2020 09/28/2023 Discontinued (Med List Cleanup) Start: 09-17-2020 Clotrimazole 1 % External Cream APPLY SPARINGLY to affected area twice a day Quantity: 30 Refills: 0 Ordered: 30-Sep-2020 Marcela Buchanan MD Start : 17-Sep-2020 Active Start: 09-17-2020 Clotrimazole 1 % External Cream APPLY SPARINGLY TO AFFECTED AREA(S) TWICE DAILY Quantity: 1 Refills: 0 Ordered: 17-Sep-2020 Marcela Buchanan MD Start : 17-Sep-2020 Active cyclobenzaprine hydrochloride 5 mg oral tablet (4 sources) Muscle Relaxant Start: 01-05-2024 End: 05-31-2024 take 1 tablet by mouth three times daily as needed for muscle spasms cyclobenzaprine (Flexeril) 5 mg tablet Indications: Closed fracture of multiple ribs of right side, initial encounter Take 1 tablet (5 mg) by mouth 3 times a day as needed for muscle spasms. 30 tablet 01/05/2024 12:42 PM EST 01/05/2024 05/31/2024 Discontinued (Med List Cleanup) docusate sodium 100 mg oral capsule (1 source) Start: 08-15-2024 End: 08-15-2024 take 100 mg by mouth twice daily 100 mg, oral, 2 times daily, First dose on Mon08/15/24 at 0930 doxycycline hyclate 100 mg oral capsule (4 sources) Tetracycline-cla ss Drug Start: 05-28-2021 End: 06-04-2021 take 1 capsule by mouth every twelve hours Doxycycline Hyclate 100 MG Oral Capsule TAKE 1 CAPSULE BY MOUTH EVERY 12 HOURS FOR 13 DOSES. Quantity: 13 Refills: 0 Ordered: 28-May-2021 DO Start : 28-May-2021 Complete Comment on above: Take 1 capsule by [facility] every 12 hours for 13 doses. 1 ml fentaNYL 0.05 mg/ml injection (1 source) Opioid Agonist Start: 08-14-2024 End: 08-14-2024 100 mcg, intravenous, Once, On Mon08/14/24 at 0830, For 1 dose, Preprocedure, If ordered PRN for pain, nurse is permitted to administer this medication for higher pain scores based on patient preference? Yes fluconazole 150 mg oral tablet (7 sources) Azole Antifungal Start: 09-17-2020 take 1 tablet by mouth every week Fluconazole 150 MG Oral Tablet TAKE 1 TABLET weekly for 4 weeks Quantity: 4 Refills: 0 Ordered: 17-Sep-2020 Marcela Buchanan MD Start : 17-Sep-2020 Active fluticasone furoate-vilanteroL (Breo Ellipta) 50-25 mcg/dose blister with device (1 source) Start: 05-15-2024 End: 08-14-2024 fluticasone furoate-vilanteroL (Breo Ellipta) 50-25 mcg/dose blister with device Inhale 1 Inhalation once daily. 05/15/2024 08/14/2024 Discontinued (Therapy completed) fluticasone furoate-vilanterol (BREO ELLIPTA) 50-25 mcg/dose inhaler (5 sources) Start: 05-15-2024 End: 08-19-2024 fluticasone furoate-vilanterol (BREO ELLIPTA) 50-25 mcg/dose inhaler Indications: Uncomplicated asthma, unspecified asthma severity, unspecified whether persistent (HCC) Inhale 1 Inhalation as instructed once daily. 60 Each 5 05/15/2024 08/19/2024 Discontinued Start: 05-15-2024 End: 06-14-2024 fluticasone furoate-vilanter ol (BREO ELLIPTA) 50-25 mcg/dose inhaler Indications: Uncomplicated asthma, unspecified asthma severity, unspecified whether persistent (HCC) Inhale 1 Inhalation as instructed once daily. 60 Each 5 05/15/2024 06/14/2024 Active 60 actuat formoterol fumarate 0.005 mg/actuat / mometasone furoate 0.1 mg/actuat metered dose inhaler (2 sources) Corticosteroid, beta2-Adrenergic Agonist Start: 07-19-2021 End: 07-19-2021 take 2 puff(s) by inhalation twice daily mometasone-formoterol (DULERA) 100-5 mcg/actuation inhaler Indications: Asthma with chronic obstructive pulmonary disease (COPD) (HCC) Inhale 2 Puffs as instructed twice daily. With spacer 1 Inhaler 5 07/19/2021 07/19/2021 Discontinued Comment on above: Inhale 2 Puffs as instructed twice daily . With spacer furosemide 20 mg oral tablet (20 sources) Loop Diuretic Start: 06-21-2021 End: 11-25-2022 take 1 tablet by mouth once daily furosemide (LASIX) 20 mg tablet TAKE 1 TABLET BY MOUTH EVERY DAY 60 tablet 1 08/13/2021 11/08/2021 Discontinued Comment on above: Take 1 tablet by mouth once daily. TAKE 1 TABLET BY PEGGY TH EVERY DAY iohexol (OMNIPaque) 350 mg iodine/mL solution 75 mL (1 source) Start: 01-02-2024 End: 01-02-2024 75 mL, intravenous, Once in imaging, Starting on Mon01/02/24 at 2121, For 1 dose 1 ml ketorolac tromethamine 30 mg/ml injection (1 source) Nonsteroidal Anti-inflammatory Drug, Cyclooxygenase Inhibitor Start: 04-12-2023 End: 04-12-2023 ketorolac (Toradol) injection 15 mg Lidocaine (4 sources) Antiarrhythmic, Amide Local Anesthetic Start: 01-23-2024 End: 01-23-2024 lidocaine (Xylocaine) 20 mg/mL (2 %) injection 2 mL Start: 01-23-2024 End: 01-23-2024 2 mL, injection, Once PRN Procedure, Starting on Mon01/23/24 at 0847, For 1 dose Start: 01-03-2024 End: 01-04-2024 apply 1 dose transdermal route once daily 1 patch, transdermal, Administer over 12 Hours, Daily, First dose on Mon01/03/24 at 1245, Apply to ribs. Patch will remain on for 12 hours, then removed for [address] patch directly over any surgical incisions or wounds. magnesium sulfate 0.0277 meq/ml / potassium sulfate 0.0374 meq/ml / sodium sulfate 0.257 meq/ml oral solution (3 sources) Start: 09-20-2023 End: 09-29-2023 sodium,potassium,mag sulfate s (Suprep) 17.5-3.13-1.6 gram recon soln solution Indications: Screening for colon cancer Take one bottle twice as directed by the prep instructions 354 mL 09/20/2023 09/29/2023 Discontinued (Therapy completed) Start: 12-05-2022 sodium,potassi um,mag sulfates (Suprep) 17.5-3.13-1.6 gram recon soln solution Indications: Special screening for malignant neoplasms, colon Take one bottle twice as directed by the prep instructions 2 each 0 12/05/2022 Active Start: 12-05-2022 sodium,potassi um,mag sulfates (Suprep) 17.5-3.13-1.6 gram recon soln solution Indications: Special screening for malignant neoplasms, colon Take one bottle twice as directed by the prep instructions 2 each 0 12/05/2022 Active 5 ml midazolam 1 mg/ml injection (1 source) Benzodiazepine Start: 08-14-2024 End: 08-14-2024 Starting on Mon08/14/24 at 0839, For 1 dose, Created by gregor burciaga oxyCODONE hydrochloride 5 mg oral tablet (13 sources) Opioid Agonist Start: 08-15-2024 take 1 tablet by mouth every six hours as needed 10 mg, oral, Every 6 hours PRN, pain severe (7-10), first line, Starting on Mon08/15/24 at 0854, If ordered PRN for pain, nurse is permitted to administer this medication for higher pain scores based on patient preference? Yes Start: 08-14-2024 End: 08-29-2024 take 1 tablet by mouth every four hours for pain oxyCODONE (Roxicodone) 5 mg immediate release tablet Indications: Rotator cuff strain, right, initial encounter Take 1 tablet (5 mg) by mouth every 4 hours if needed for severe pain (7 - 10). 25 tablet 08/17/2024 08/29/2024 Discontinued (Med List Cleanup) Start: 01-05-2024 End: 05-31-2024 take 1 tablet by mouth every six hours for pain oxyCODONE (Roxicodone) 5 mg immediate release tablet Indications: Closed fracture of multiple ribs of right side, initial encounter , Acute pain Take 1 tablet (5 mg) by mouth every 6 hours if needed for severe pain (7 - 10). 10 tablet 01/05/2024 12:42 PM EST 01/05/2024 05/31/2024 Discontinued (Med List Cleanup) Start: 01-04-2024 take 1 tablet by peggy every four hours as needed 5 mg, oral, Every 4 hours PRN, pain moderate (4-6), first line, pain severe (7-10), first line, Starting on Jacqueline 01/04/24 at 0740, If ordered PRN for pain, nurse is permitted to administer this medication for higher pain scores based on patient preference? Yes Start: 01-02-2024 End: 01-04-2024 take 1 tablet by mouth every six hours as needed 10 mg, oral, Every 6 hours PRN, pain severe (7-10), first line, Starting on Mon01/02/24 at 2328, Phase II/On Unit, If ordered PRN for pain, nurse is permitted to administer this medication for higher pain scores based on patient preference? Yes Start: 01-02-2024 End: 01-04-2024 take 1 tablet by mouth every six hours as needed 5 mg, oral, Every 6 hours PRN, pain moderate (4-6), first line, Starting on Mon01/02/24 at 2328, Phase II/On Unit, If ordered PRN for pain, nurse is permitted to administer this medication for higher pain scores based on patient preference? Yes oxygen (O2) gas therapy (4 sources) Start: 01-05-2024 End: 05-31-2024 oxygen (O2) gas therapy Ai cations: Interstitial lung disease (Multi) Inhale 1 each continuously. 01/05/2024 05/31/2024 Discontinued (Med List Cleanup) Start: 01-05-2024 oxygen (O2) ga s therapy Indications: Interstitial lung disease (Multi) Inhale 1 each continuously. 01/05/2024 Active pantoprazole 40 mg delayed release oral tablet (20 sources) Proton Pump Inhibitor Start: 03-18-2023 End: 08-19-2024 take 1 tablet by mouth once daily in the morning pantoprazole DR (PROTONIX) 40 mg tablet Indications: Gastroesophageal reflux disease with esophagitis without hemorrhage Take 1 tablet by mouth daily at 6 am. 30 tablet 1 03/17/2023 2:26 PM EST 03/18/2023 08/19/2024 Discontinued Comment on above: Take 1 tablet by peggy th daily at 6 am. potassium chloride 10 meq extended release oral tablet (20 sources) Start: 06-21-2021 End: 11-25-2022 take 1 tablet by mouth once daily potassium chloride (K-TAB) 10 mEq tablet TAKE 1 TABLET BY MOUTH EVERY DAY 60 tablet 1 08/13/2021 11/08/2021 Discontinued Comment on above: Take 1 tablet by peggy th once daily. TAKE 1 TABLET BY PEGGY TH EVERY DAY povidone-iodine 50 mg/ml topical solution (1 source) Antiseptic Start: 08-14-2024 End: 08-14-2024 Topical, Once, On Mon08/14/24 at 0830, For 1 dose, Preprocedure, Apply povidone iodine 5% to surgical area and bilateral nares (unless allergic) in pre-op the morning of surgery. predniSONE 20 mg oral tablet (20 sources) Start: 08-18-2024 End: 08-29-2024 predniSONE (Deltasone) 20 mg tablet Indications: Eczema, unspecified type Take 2 tablets (40 mg) by mouth once daily for 5 doses. Do not fill before August 18, 2024. 10 tablet 08/18/2024 08/29/2024 Discontinued (Med List Cleanup) Start: 08-16-2024 End: 08-21-2024 take 40 mg by mouth once daily 40 mg, oral, Daily, Fir st dose on Mon08/16/24 at 1745, For 5 days Start: 03-24-2023 End: 06-22-2023 take 3 tablets by mouth once daily predniSONE (DELTASONE) 10 mg tablet Take 3 tablets by mouth once daily. 270 tablet 0 03/24/2023 06/22/2023 Active Start: 03-18-2023 End: 04-17-2023 take 4 tablets by mouth once daily predniSONE (Deltasone) 10 mg tablet Take 4 tablets (40 mg) by mouth once daily. 0 03/18/2023 04/17/2023 Active Start: 05-28-2021 End: 10-22-2021 predniSONE (DELTASONE) 10 mg tablet Take 4 tablets daily for 3 days, then 3 tablets daily for 3 days, then 2 tablets daily for 3 days, then 1 tablet daily for 3 days 30 tablet 05/28/2021 10/22/2021 Discontinued Comment on above: Take 4 tablets daily for 3 days, then 3 tablets daily for 3 days, then 2 tablets daily for 3 days, then 1 tablet daily for 3 days Take 4 tablets by [facility] once daily. Patient should start on March 18, 2023. Take 3 tablets by [facility] once daily. prochlorperazine 5 mg/ml injectable solution (1 source) Phenothiazine Start: End: 5 mg, intravenous, Once as needed, nausea/vomiting, second line, persistent post-op nausea/vomiting, Starting on Mon08/14/24 at 1235, For 1 dose, Recovery (only) 72 hr scopolamine 0.0139 mg/hr transdermal system (1 source) Anticholinergic Start: End: 1 patch, transdermal, Administer over 72 Hours, Once, On Mon08/14/24 at 0830, For 1 dose, Preprocedure, Wash hands before and after application to avoid drug contact with eyes. Apply to hairless area of skin behind the ear. Once patch has been affixed behind ear, do not touch while being worn. sulfamethoxazole 800 mg / trimethoprim 160 mg oral tablet (12 sources) Dihydrofolate Reductase Inhibitor Antibacterial, Sulfonamide Antimicrobial Start: End: 05-03-2 024 take 1 tablet by mouth once sulfamethoxazole-tr imethoprim (BACTRIM DS) 800-160 mg per tablet Indications: Need for pneumocystis prophylaxis Take 1 tablet by mouth every Monday, Monday, and Monday. 12 tablet 1 03/20/2023 06/16/2023 Discontinued (Course of therapy completed) Start: 03-20-2023 take 1 tablet by peggy th once daily sulfamethoxazole-trimethoprim (Bactrim D S) 800-160 mg tablet Take 1 tablet by mouth once a day on Monday, Monday, and Monday. 0 03/20/2023 Active Start: 03-20-2023 take 1 tablet by peggy th once sulfamethoxazole-trimethoprim (BACTRIM D S) 800-160 mg per tablet Indications: Need for pneumocystis prophylaxis Take 1 tablet by mouth every Monday, Monday, and Monday. 12 tablet 1 03/20/2023 Active Comment on above: Take 1 tablet by peggy th every Monday, Monday, and Monday. 24 hr tolterodine tartrate 2 mg extended release oral capsule (20 sources) Cholinergic Muscarinic Antagonist Start: End: take 1 capsule by mouth every twenty-four hours tolterodine ER (DETROL LA) 2 mg 24 hr capsule Take 2 mg by mouth. 10/05/2023 08/19/2024 Discontinued Start: 10-05-2023 End: 10-04-2024 take 1 capsule by mouth once daily tolterodine LA (Detrol LA) 2 mg 24 hr capsule Indications: OAB (overactive bladder) Take 1 capsule (2 mg) by mouth once daily. Do not crush, chew, or split. 30 capsule 11 10/05/2023 05/31/2024 Discontinued (Med List Cleanup) End: 08-19-2024 take 1 tablet by mouth once daily tolterodine (DETROL) 2 mg tablet Take 2 mg by mouth once daily. 08/19/2024 Discontinued 1 ml triamcinolone acetonide 40 mg/ml injection (2 sources) Corticosteroid Start: 01-23-2024 End: 01-23-2024 triamcinolone acetonide (Kenalog-40) injection 40 mg Start: 01-23-2024 End: 01-23-2024 40 mg, intra-articular, Once PRN Procedure, Starting on Mon01/23/24 at 0847, For 1 dose Problems Active Problems Problem Classification Problem Date Documented Da te Episodic/Chronic Allergic reactions (20 sources) Eczema; Translations: [Contact dermatitis and other eczema, unspecified cause] Onset: 10-11-2022 10-11-2022 Episodic Anxiety disorders (20 sources) Mixed anxiety and depressive disorder; Translations: [Dysthymic disorder] Onset: 10-11-2022 10-11-2022 Chronic Asthma (20 sources) Uncomplicated asthma; Translations: [Unspecified asthma, uncomplicated] Onset: 10-04-2023 Chronic Chronic obstructive pulmonary disease and bronchiectasis (7 sources) Chronic obstructive lung disease; Translations: [Chronic obstructive pulmonary disease, unspecified] Chronic Complications of surgical procedures or medical care (1 source) Pulmonary insufficiency following surgery; Translations: [Other postprocedural complications and disorders of respiratory system, not elsewhere classified] 08-29-2024 Episodic Coronary atherosclerosis and other heart disease (20 sources) Exercise-induced angina; Translations: [Other and unspecified angina pectoris] Onset: 09-06-2023 09-06-2023 Chronic Diabetes mellitus without complication (1 source) Hyperglycemia; Translations: [Hyperglycemia, unspecified] 10-11-2022 Episodic Disorders of lipid metabolism (20 sources) Hypercholesterolemia ; Translations: [Pure hypercholesterolemia ] Onset: 10-11-2022 Chronic Comment on above: Dr. 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 dust] Onset: 03-14-2023 Chronic Malaise and fatigue (1 source) Fatigue; Translations: [Other fatigue] 10-11-2022 Episodic Menopausal disorders (3 sources) Atrophy of vagina; Translations: [Postmenopausal atrophic vaginitis] Onset: 09-20-2024 09-20-2024 Chronic Mood disorders (4 sources) Moderate major depression, single episode; Translations: [Major depressive disorder, single episode, moderate] Onset: 10-04-2023 10-04-2023 Chronic Nonmalignant breast conditions (1 source) Breasts asymmetrical; Translations: [Other specified disorders of breast] 10-11-2022 Episodic Nonspecific chest pain (1 source) Precordial pain; Translations: [Precordial pain] Episodic Other aftercare (20 sources) Patient encounter status; Translations: [Long-term (current) use of other medications] 10-11-2022 Episodic Other bone disease and musculoskeletal deformities (1 source) Osteopenia; Translations: [Other specified disorders of bone density and structure, multiple sites] 10-11-2022 Episodic Other connective tissue disease (1 source) Tendinitis of right rotator cuff; Translations: [Other shoulder lesions, right shoulder] 01-23-2024 Episodic Other connective tissue disease (1 source) Tear of right rotator cuff; Translations: [Unspecified rotator cuff tear or rupture of right shoulder, not specified as traumatic] 08-01-2024 Episodic Other diseases of bladder and urethra (20 sources) Overactive bladder; Translations: [Hypertonicity of bladder] Onset: 10-11-2022 10-11-2022 Chronic Other diseases of bladder and urethra (1 source) Overactive bladder; Translations: [Overactive bladder] Onset: 09-20-2024 Chronic Other diseases of bladder and urethra (3 sources) Urethral intrinsic sphincter deficiency; Translations: [Intrinsic sphincter deficiency (ISD)] 07-18-2024 Episodic Other diseases of bladder and urethra (1 source) Intrinsic sphincter deficiency (ISD); Translations: [Intrinsic sphincter deficiency (ISD)] Onset: 09-20-2024 Episodic Other fractures (3 sources) Closed fracture of multiple ribs; Translations: [Multiple fractures of ribs, right side, subsequent encounter for fracture with routine healing] 01-08-2024 Episodic Other gastrointestinal disorders (2 sources) Constipation; Translations: [Constipation, unspecified] 09-20-2024 Episodic Other gastrointestinal disorders (1 source) Constipation, unspecified; Translations: [Constipation, unspecified] Onset: 09-20-2024 Episodic Other inflammatory condition of skin (16 sources) Intertrigo; Translations: [Other specified erythematous conditions] Episodic Other lower respiratory disease (20 sources) Interstitial lung disease; Translations: [Interstitial pulmonary disease, unspecified] Onset: 03-14-2023 Chronic Other lower respiratory disease (2 sources) Interstitial pulmonary disease, unspecified; Translations: [Interstitial pulmonary disease, unspecified] Onset: 01-02-2024 Chronic Other lower respiratory disease (5 sources) Dyspnea; Translations: [Dyspnea, unspecified] Episodic Other lower respiratory disease (1 source) Hypoxemia; Translations: [Hypoxemia] Episodic Other non-traumatic joint disorders (2 sources) Pain in left knee; Translations: [Pain in joint, lower leg] 10-11-2022 Episodic Other skin disorders (14 sources) Dry skin; 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, acquired] Episodic Residual codes; unclassified (1 source) Acute pain; Translations: [Pain, unspecified] 01-05-2024 Episodic Sprains and strains (14 sources) Injury of thigh; Translations: [Strain of muscle, fascia and tendon of the posterior muscle group at thigh level, right thigh, initial encounter] Onset: 07-02-2024 02-27-2023 Episodic Unclassified (3 sources) Acute pain of right shoulder 01-19-2024 Unclassified (3 sources) Patient encounter status 05-31-2024 Unclassified (1 source) Strain of tendon of right rotator cuff, subsequent encounter 08-20-2024 Unclassified (2 sources) hospital follow up for breathing issues Onset: 08-29-2024 Past or Other Problems Problem Classification Problem Date Documented Da te Episodic/Chronic Crushing injury or internal injury (3 sources) Contusion of lung; Translations: [Contusion of lung, unilateral, initial encounter] Onset: 01-02-2024 01-02-2024 Episodic Other connective tissue disease (2 sources) Other shoulder lesions, right shoulder; Translations: [Other shoulder lesions, right shoulder] Onset: 01-23-2024 Episodic Other female genital disorders (20 sources) Pruritus of vagina; Translations: [Pruritus of genital organs] Onset: 10-11-2022 Resolved: 10-11-2022 10-11-2022 Episodic Other female genital disorders (20 sources) Dystrophy of vulva; Translations: [Other dystrophy of vulva] Onset: 10-11-2022 10-11-2022 Episodic Other female genital disorders (20 sources) Vaginal discharge; Translations: [Leukorrhea, not specified as infective] Onset: 10-11-2022 Resolved: 10-11-2022 10-11-2022 Episodic Other fractures (16 sources) Closed fracture of multiple right ribs; Translations: [Multiple fractures of ribs, right side, initial encounter for closed fracture] Onset: 01-02-2024 Resolved: 01-05-2024 01-02-2024 Episodic Other fractures (1 source) Multiple fractures of ribs, right side, subsequent encounter for fracture with routine healing; Translations: [Closed fracture of multiple ribs of right side with routine healing, subsequent encounter] Onset: 01-08-2024 Episodic Other fractures (4 sources) Multiple fractures of ribs, right side, initial encounter for closed fracture; Translations: [Multiple fractures of ribs, right side, initial encounter for closed fracture] Onset: 01-02-2024 Episodic Other lower respiratory disease (20 sources) Dyspnea on exertion; Translations: [Shortness of breath] Onset: 10-11-2022 10-11-2022 Episodic Other lower respiratory disease (20 sources) Hypoxia; Translations: [Hypoxemia] Onset: 05-26-2021 05-26-2021 Episodic Other lower respiratory disease (1 source) Hypoxemia; Translations: [Hypoxia] Onset: 03-17-2023 Episodic Other non-traumatic joint disorders (10 sources) Pain in right shoulder; Translations: [Pain in joint, shoulder region] Onset: 01-19-2024 01-19-2024 Episodic Other screening for suspected conditions (not mental disorders or infectious disease) (20 sources) Mammography abnormal; Translations: [Abnormal mammogram, unspecified] Onset: 09-29-2023 10-04-2023 Episodic Other skin disorders (18 sources) Xeroderma; 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, acquired] Onset: 10-11-2022 10-11-2022 Episodic Pulmonary heart disease (20 sources) Pulmonary hypertension; Translations: [Other chronic pulmonary heart diseases] Onset: 10-11-2022 Resolved: 10-04-2023 10-11-2022 Chronic Comment on above: mild; Residual codes; unclassified (20 sources) Prevention status; Translations: [Need for pneumocystis prophylaxis] Onset: 03-15-2023 03-17-2023 Episodic Residual codes; unclassified (2 sources) Pain, unspecified; Translations: [Pain, unspecified] Onset: 01-02-2024 Episodic Respiratory failure; insufficiency; arrest (adult) (20 sources) Acute hypoxemic respiratory failure; Translations: [Acute respiratory failure with hypoxia] Onset: 03-15-2023 03-17-2023 Episodic Unclassified (17 sources) Onset: 10-11-2022 Resolved: 08-29-2024 10-11-2022 Results Test Name Value Interpretation Reference Range Facility MR/Harriet 09-20-2024 MR/CYRUS [facility] [address], [address] [place] [address] OFFICE VISIT Date of Service: 09/20/24 MR#: [id number] Acct: [id number] Name: KASSANDRA SMITH Rep #: [id number] : 1955 Provider: Dr. 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: No Accompanied by: self Is patient in pain?: No Allergies No Known Allergies Allergy (Verified 09/20/24 10:20) Medications ???Medication ???Instructions ???Recorded ???Confirmed ???Type albuterol sulfate 90 mcg/actuation 2 puff inhalation Q4H PRN PRN 09/20/24 History aerosol inhaler wheezing aspirin 81 mg chewable tablet 1 tab PO DAILY 05/30/24 09/20/24 H istory (Ban Chewable Low Dose Aspirin) atorvastatin 80 mg tablet 80 mg PO DAILY 05/30/24 09/20/24 H istory budesonide-formoterol HFA 160 2 puff inhalation BID PRN wheezing 05/30/24 09/20/24 History mcg-4.5 mcg/actuation aerosol inhaler bupropion HCl 150 mg 24 hr tablet, 150 mg PO DAILY 05/30/24 5 History extended release citalopram 40 mg tablet 40 mg PO DAILY 05/30/24 09/20/24 H istory gabapentin 300 mg capsule 300 mg PO DAILY 05/30/24 09/20/24 History acetaminophen 500 mg tablet 500 mg PO Q6H PRN fever or pain 09/20/24 History meloxicam 15 mg tablet 15 mg PO DAILY PRN moderate pain 0 09/12/24 09/20/24 History moxifloxacin 0.5 % eye drops 1 drp RIGHT EYE 4X/DAY 09/12/24 History ondansetron 8 mg disintegrating 8 mg PO Q8H PRN PRN nausea and 09/20/24 History tablet vomiting Have you fallen in the past year?: No PFSH Medical History Constipation Vaginal atrophy Overactive bladder UTI (urinary tract infection) Kidney stones SHAQ (stress urinary incontinence, female) Intrinsic sphincter deficiency Post-menopausal Wears glasses Depression Former smoker Asthma Shortness of breath on exertion Surgical History H/O cystoscopy Hx of section Hx of cholecystectomy Hx of colonoscopy Family History Other Breast cancer Diabetes Heart disease Social History Smoking Status: Former smoker alcohol intake: never what type of physical activity do you participate in: other How many days of moderate to strenuous exercise, like a brisk walk, did you do in the last 7 days: 3 frequency: 3-4 times per week duration: other do you feel safe at home: Yes HPI HPI Urology Chief Complaint: preoperation urine and consent Details: KASSANDRA SMITH, is a 69 F. The patient is here for preoperative history and physical prior to cystoscopy with Bulkamid injection. There are no new symptoms since the last visit. The procedure, recovery and expectations were explained. The risks, benefits and alternatives were discussed, including but not limited to, the risks of anesthesia, bleeding, infection, injury, pain and the need for further intervention. We have discussed the risk of exposure to and/or potential harm posed by the COVID-19 virus with having a surgery/procedure at this time. A joint decision was made at this time to proceed with the scheduled surgery/procedure as indicated on the consent form. ROS Const Constitutional: No chills, fatigue, fever(s), headache(s), night sweats, weakness, weight change, abnormal sleep pattern or change in appetite Eyes Eyes: No change in vision ENT ENT: No headache(s) or dry mouth Resp Respiratory: No cough, chest congestion, shortness of breath or wheezing Cardio Cardiology: Positive for other (No chest pain.); No shortness of breath, irregular heart rhythm or lightheadedness Gastro GI: Positive for other (No nausea.); No abdominal pain, change in bowel habits, constipation, diarrhea or vomiting Musc Musculoskeletal: Positive for other (right rotator cuff repair 4 weeks ago, doing well); No abnormal gait Skin Skin: No yellowing of the eye, lesions, itchy eyes, rash or skin ulcer Neuro Neurology: No abnormal gait, confusion, dizziness, weakness, headache(s) or memory loss Psych Psychiatric: No abnormal sleep pattern, No change in appetite, No confusion and No memory loss Endo Endocrine: No fatigue, increased thirst/drinking or weight change Aller/Imm Allergy/Immunologic: No itchy eyes or wheezing Tigre/Lymp Hematologic/Lymphatic: No easy bleeding, easy bruising or enlarged l (more content not included)... Normal [facility] 08-21-2024 [facility] Telephone (PMINLL) -- KASSANDRA SMITH ([id number]) 1955 F Date Time Provider Department 08/21/24 KAYODE MCKEON During your visit today, we recorded the following information about you: Kayode Mckeon MD 08/21/2024 12:13 PM Signed Please confirm with her that her oxygen walking test did not show her levels drop at all so she no longer needs to use oxygen. If she would like we can send a discontinue order to her provider Kimberly Martins RN 08/21/2024 12:55 PM Signed Patient updated Patient agreeable to have discontinue order sent [facility] fax [phone] Kayode Mckeon MD 08/21/2024 1:01 PM Signed Dc oxygen order placed, please fax, thank you Carmelo Arizmendi MA 08/21/2024 1:07 PM Signed faxed Allergies As of Date: 08/21/2024 (No Known Allergies) Date Reviewed: 08/19/2024 Reviewed by: Kayode Mckeon MD - Fully Assessed Reason for Visit: Results [95] Cmt: Oximetry Primary Visit Diagnosis:Hypersensitivity pneumonitis (HCC) [J67.9] Order(s):DISCONTINUE HOME OXYGEN [7204313] Order #: [id number] Prescriptions as of 08/21/2024 - ADVAIR HFA 230-21 mcg/actuation inhaler INHALE 2 PUFFS BY MOUTH TWICE DAILY DIRECTED - buPROPion SR (WELLBUTRIN SR) 150 mg 12 hr tablet Take 150 mg by mouth once daily. - albuterol HFA (PROVENTIL HFA, VENTOLIN HFA) 90 mcg/actuation inhaler Inhale 2 Puffs as instructed every 4 hours as needed for wheezing/shortness of breath. - tacrolimus (PROTOPIC) 0.1 % ointment APPLY TO AFFECTED TWICE DAILY X 14 DAYS, STOP FOR 1 WEEK AND RESUME IF NEEDED - atorvastatin (LIPITOR) 80 mg tablet Take 1 tablet by mouth daily at bedtime. - albuterol HFA (PROVENTIL HFA, VENTOLIN HFA) 90 mcg/actuation inhaler Inhale 1 Puff as instructed every 4 hours as needed for wheezing/shortness of breath. Inhale 1 to 2 puffs every 4 to 6 hours as needed - [employer] one nebulizer compressor with lifetime supplies. - albuterol (PROVENTIL) 2.5 mg /3 mL (0.083 %) nebulizer solution Use 3 mL via nebulizer every 4 hours as needed for wheezing/shortness of breath. - citalopram (CELEXA) 40 mg tablet Take 40 mg by mouth once daily. - calcium carbonate (CALTRATE) 600 mg calcium (1,500 mg) tab Take 1,200 mg by mouth once daily. - Vit A,C and W-Zifqtk-Mhgigepp (OCUVITE) 300 mcg-200 mg-27 mg-2 mg tab Take 1 tablet by mouth once daily. - aspirin, enteric coated (ASPIRIN, ENTERIC COATED) 81 mg EC tablet Take 81 mg by mouth once daily. Problem List As Of Date 08/21/2024 Noted Resolved Hypoxia [R09.02] 05/26/2021 Hypersensitivity pneumonia (HCC) [J67.9] 03/14/2023 Interstitial lung disease (HCC) [J84.9] 03/14/2023 Need for pneumocystis prophylaxis [Z29.89] 03/15/2023 Acute hypoxemic respiratory failure (HCC) [J96.*03/15/2023 Encounter Status:Closed by CARMELO ARIZMENDI on 08/21/24 Normal [facility] OXIMETRY WITH AMBULATIONon 0 08-21-2024 Naty Melgar RRT 08/21/2024 11:23 AM RESPIRATORY THERAPY OXIMETRY WITH AMBULATION Oximetry with Ambulation Test for This Encounter O2 Device O2 Adapter NC O2 Flow SpO2% HR Activity Ft Walked (ft) Time (min) Avg Speed (MPH) R/A 92 77 Resting R/A 91 92 Walking, usual pace 455 3 1.72 R/A 97 77 Resting R/A 91 102 Walking, fastest pace 800 3 3.03 General Information Pulse Oximetry Site Total Time Spent Walking Assistance/O2 Supply Carrier Forehead 30 None NAME: Naty Melgar RRT PATIENT NAME: Kassandra Smith DATE: August 21, 2024 TIME: 11:23 AM Comment: [facility] CNOVon 08-19-2024 CNOV Office Visit (PMINLL ) -- KASSANDRA SMITH ([id number]) 1955 F Date Time Provider Department 08/19/24 9:00 AM KAYODE MCKEON During your visit today, we recorded the following information about you: Pulse Blood pressure Height 81/minute 132/78 1.702 m Kayode Mckeon MD 08/19/2024 9:19 AM Signed . Pulmonary Clinic Follow-up Note Patient Name: Kassandra Smith PRIMARY CARE PHYSICIAN: Marcela Buchanan MD Date of visit: August 19, 2024 COMMUNICATION WILL BE SENT VIA SHARED MEDICAL RECORDS OR US MAIL. Subjective: Kassandra Smith is a 69 year old year old female who presents for follow-up of asthma/copd, HP, last seen 3 months ago by Ivan. At that time she was started back up on ICS/LABA. Nhi reports increased dyspnea and fatigue prior to her recent surgery, which led her to use her inhaler more frequently. She was prescribed an inhaler 3 months ago but felt it was not effective, stating, I didn't feel it was doing what it was supposed to. She has been using Advair, 2 puffs once daily, occasionally twice daily, but her insurance no longer covers it, making it cost-prohibitive. She has about one week of Advair remaining. Nhi underwent surgery recently and was hospitalized from Monday to Monday. She was discharged with supplemental oxygen, which she uses periodically during the day, especially when at rest, such as watching TV. She was not given specific instructions on oxygen use at rest or with exertion. She is currently on a 5-day course of prednisone, with 5 days remaining. She reports feeling okay but notes that she has felt better. She denies having a clear understanding of her diagnosis, stating that she was unsure if she had asthma or COPD. She has a history of exposure to bird particles, as she keeps birds at home, which may contribute to her hypersensitivity pneumonitis. MEDICATIONS: budesonide-formoterol (SYMBICORT) 160-4.5 mcg/actuation inhaler Inhale 2 Puffs as instructed two times a day. fluticasone furoate-vilanterol (BREO ELLIPTA) 50-25 mcg/dose inhaler Inhale 1 Inhalation as instructed once daily. tolterodine ER (DETROL LA) 2 mg 24 hr capsule Take 2 mg by mouth. ADVAIR HFA 230-21 mcg/actuation inhaler INHALE 2 PUFFS BY MOUTH TWICE DAILY DIRECTED tolterodine (DETROL) 2 mg tablet Take 2 mg by mouth once daily. buPROPion SR (WELLBUTRIN SR) 150 mg 12 hr tablet Take 150 mg by mouth once daily. albuterol HFA (PROVENTIL HFA, VENTOLIN HFA) 90 mcg/actuation inhaler Inhale 2 Puffs as instructed every 4 hours as needed for wheezing/shortness of breath. fluticasone-salmeterol (ADVAIR DISKUS) 500-50 mcg/dose dsdv Inhale 1 Puff as instructed two times a day. pantoprazole DR (PROTONIX) 40 mg tablet Take 1 tablet by mouth daily at 6 am. tacrolimus (PROTOPIC) 0.1 % ointment APPLY TO AFFECTED TWICE DAILY X 14 DAYS, STOP FOR 1 WEEK AND RESUME IF NEEDED atorvastatin (LIPITOR) 80 mg tablet Take 1 tablet by mouth daily at bedtime. albuterol HFA (PROVENTIL HFA, VENTOLIN HFA) 90 mcg/actuation inhaler Inhale 1 Puff as instructed every 4 hours as needed for wheezing/shortness of breath. 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 albuterol (PROVENTIL) 2.5 mg /3 mL (0.083 %) nebulizer solution Use 3 mL via nebulizer every 4 hours as needed for wheezing/shortness of breath. citalopram (CELEXA) 40 mg tablet Take 40 mg by mouth once daily. oxybutynin (DITROPAN) 5 mg tablet Take 5 mg by mouth twice daily. calcium carbonate (CALTRATE) 600 mg calcium (1,500 mg) tab Take 1,200 mg by mouth once daily. Vit A,C and H-Gicftr-Iybaonlz (OCUVITE) 300 mcg-200 mg-27 mg-2 mg tab Take 1 tablet by mouth once daily. aspirin, enteric coated (ASPIRIN, ENTERIC COATED) 81 mg EC tablet Take 81 mg by mouth once daily. Allergies: Patient has no known allergies. ROS: Pertinent positives and negatives are listed in the HPI, all other systems were reviewed and found to be negative. PHYSICAL EXAM: BP 132/78 (BP Site: Left Arm, BP Position: Sitting, BP Cuff Size: Regular Adult) Pulse 81 Ht 170.2 cm (5' 7) SpO2 91% BMI 31.01 kg/m? General- nad, comfortable Eyes- eomi ENT- mmm, oropharynx CV- RRR Resp- CTA bilaterally Ext- no clubbing, cyanosis, or edemas Psych- appropriate mood and affect Labs / Imaging / Diagnostic Studies: Reviewed spirometry from today which showed FEV1 62%, FVC 73%, and DLCO 75%. Assessment: Hypersensitivity pneumonitis-confirmed on bronchoscopy 02/2023. Was on systemic steroids for several months and weaned off altogether in July 2023. She no longer works at the [employer].using ICS/LABA PRN. Insurance a barrier to her care. [place] and DLCO stable though was on oxygen for a few days post shoulder surgery, discharged home on oxygen without (more content not included)... Normal [facility] CNPNon 08-19-2024 CNPN Telephone (PMINLL) -- KASSANDRA SMITH ([id number]) 1955 F Date Time Provider Department 08/19/24 KAYODE MCKEON PMINDORA During your visit today, we recorded the following information about you: Carmelo Arizmendi MA 08/19/2024 2:13 PM Signed Outside records received. Please review below File Link Scan on 08/18/2024 7:35 AM by Provider, DEANNA PatelC: Miscellaneous Clinical Documents Kayode Mckeon MD 08/19/2024 2:26 PM Signed Please let her know that we just received her hospital records, she had asked about it this morning and we had not had it yet Carmelo Arizmendi MA 08/19/2024 2:53 PM Signed Pt notified Allergies As of Date: 08/19/2024 (No Known Allergies) Date Reviewed: 08/19/2024 Reviewed by: Kayode Mckeon MD - Fully Assessed Prescriptions as of 08/19/2024 - ADVAIR HFA 230-21 mcg/actuation inhaler INHALE 2 PUFFS BY MOUTH TWICE DAILY DIRECTED - buPROPion SR (WELLBUTRIN SR) 150 mg 12 hr tablet Take 150 mg by mouth once daily. - albuterol HFA (PROVENTIL HFA, VENTOLIN HFA) 90 mcg/actuation inhaler Inhale 2 Puffs as instructed every 4 hours as needed for wheezing/shortness of breath. - tacrolimus (PROTOPIC) 0.1 % ointment APPLY TO AFFECTED TWICE DAILY X 14 DAYS, STOP FOR 1 WEEK AND RESUME IF NEEDED - atorvastatin (LIPITOR) 80 mg tablet Take 1 tablet by mouth daily at bedtime. - albuterol HFA (PROVENTIL HFA, VENTOLIN HFA) 90 mcg/actuation inhaler Inhale 1 Puff as instructed every 4 hours as needed for wheezing/shortness of breath. Inhale 1 to 2 puffs every 4 to 6 hours as needed - [employer] Disp[employer] one nebulizer compressor with lifetime supplies. - albuterol (PROVENTIL) 2.5 mg /3 mL (0.083 %) nebulizer solution Use 3 mL via nebulizer every 4 hours as needed for wheezing/shortness of breath. - citalopram (CELEXA) 40 mg tablet Take 40 mg by mouth once daily. - calcium carbonate (CALTRATE) 600 mg calcium (1,500 mg) tab Take 1,200 mg by mouth once daily. - Vit A,C and A-Psusxl-Buovodjn (OCUVITE) 300 mcg-200 mg-27 mg-2 mg tab Take 1 tablet by mouth once daily. - aspirin, enteric coated (ASPIRIN, ENTERIC COATED) 81 mg EC tablet Take 81 mg by mouth once daily. Problem List As Of Date 08/19/2024 Noted Resolved Hypoxia [R09.02] 05/26/2021 Hypersensitivity pneumonia (HCC) [J67.9] 03/14/2023 Interstitial lung disease (HCC) [J84.9] 03/14/2023 Need for pneumocystis prophylaxis [Z29.89] 03/15/2023 Acute hypoxemic respiratory failure (HCC) [J96.*03/15/2023 Encounter Status:Closed by CARMELO ARIZMENDI on 08/19/24 [facility] LUNG DIFFUSION CAPACITY (MARCO O)on 08-19-2024 LUNG DIFFUSION CAPACITY (DLCO) [facility] 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 Start of test and EOFE criteria met. Current ATS/ERS acceptability and repeatability standards for DLCO met with 2 acceptable maneuvers. Height taken on 08/19/24.//LC IMPRESSION: Spirometry is normal except for an isolated decreased fev1. The diffusing capacity (uncorrected for hemoglobin) is reduced. Electronically Signed On 08-19-2024 13:54:56 EDT by Radha Ruiz MD ID: [id number] Name: KASSANDRA SMITH Race: White Ht: 67.40 in Wt: 184.97 lbs Age: 69 Gender: Female : 1955 Dx: Hypersensitivity pneumonitis_ Smoking Hx: Ex-smoker Doctor: IVAN TALAVERA Test Date: 08/19/2024 Site: IN Tech: Naty Melgar PRE-BRONCH POST-BRONCH Veena LLN Pred ULN %Pred ZScore Veena %Pred %Chg ZScore SPIROMETRY FVC 2.34 2.27 3.19 4.14 73 -1.52 FEV1 1.55 1.73 2.47 3.16 62 -2.02 FEV1/FVC 0.66 0.66 0.78 0.88 84 -1.55 FEFMax 6.35 4.41 6.30 8.20 100 0.04 FEF50 1.19 1.81 3.42 5.03 34 -2.28 FIF50 4.05 FEF50/FIF50 0.29 90-100 FIVC 2.27 BRG37-74 0.63 0.98 2.08 3.63 30 -2.37 ExpiredTime 11.88 TimeToFEFMax 0.07 JOSÉ 0.06 VolExtrap% 2 LUNG DIFFUSION DLCOunc 15.65 15.69 20.77 27.03 75 -1.66 DLCOStdPB 15.44 15.69 20.77 27.03 74 -1.74 VA 4.06 4.11 5.13 6.25 79 -1.73 Kco 3.80 3.08 4.02 5.09 94 -0.36 Comments: Current ATS/ERS acceptability and repeatability standards for spirometry met. Start of test and EOFE criteria met. Current ATS/ERS acceptability and repeatability standards for DLCO met with 2 acceptable maneuvers. Height taken on 08/19/24.//LC Normal [facility] No Panel Informationon 08-[address] [facility] 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 Start of test and EOFE criteria met. Current ATS/ERS acceptability and repeatability standards for DLCO met with 2 acceptable maneuvers. Height taken on 08/19/24.//LC IMPRESSION: Spirometry is normal except for an isolated decreased fev1. The diffusing capacity (uncorrected for hemoglobin) is reduced. Electronically Signed On 08-19-2024 13:54:56 EDT by Radha Ruiz MD ID: [id number] Name: KASSANDRA SMITH Race: White Ht: 67.40 in Wt: 184.97 lbs Age: 69 Gender: Female : 1955 Dx: Hypersensitivity pneumonitis_ Smoking Hx: Ex-smoker Doctor: IVAN TALAVERA Test Date: 08/19/2024 Site: IN Tech: Naty Melgar PRE-BRONCH POST-BRONCH Veena LLN Pred ULN %Pred ZScore Veena %Pred %Chg ZScore SPIROMETRY FVC 2.34 2.27 3.19 4.14 73 -1.52 FEV1 1.55 1.73 2.47 3.16 62 -2.02 FEV1/FVC 0.66 0.66 0.78 0.88 84 -1.55 FEFMax 6.35 4.41 6.30 8.20 100 0.04 FEF50 1.19 1.81 3.42 5.03 34 -2.28 FIF50 4.05 FEF50/FIF50 0.29 90-100 FIVC 2.27 XEV18-33 0.63 0.98 2.08 3.63 30 -2.37 ExpiredTime 11.88 TimeToFEFMax 0.07 JOSÉ 0.06 VolExtrap% 2 LUNG DIFFUSION DLCOunc 15.65 15.69 20.77 27.03 75 -1.66 DLCOStdPB 15.44 15.69 20.77 27.03 74 -1.74 VA 4.06 4.11 5.13 6.25 79 -1.73 Kco 3.80 3.08 4.02 5.09 94 -0.36 Comments: Current ATS/ERS acceptability and repeatability standards for spirometry met. Start of test and EOFE criteria met. Current ATS/ERS acceptability and repeatability standards for DLCO met with 2 acceptable maneuvers. Height taken on 08/19/24.// PULMONARY FUNCTION LAB [facility] SPIROMETRY BASELINE ONLYon 0 08-19-2024 DLCO (ml/min/mmHg) 15.65 ml/min/mmHg [facility] DLCO LLN (ml/min/mmHg) 15.69 ml/min/mmHg [facility] DLCO PREDICTED (ml/min/mmHg) 20.77 ml/min/mmHg [facility] DLCO ULN (ml/min/mmHg) 27.03 ml/min/mmHg [facility] DLCO/VA (ml/min/mmHg/L) 0.04 ml/min/mmHg/ L [facility] DLCO/VA PREDICTED (ml/min/mmHg/L) 0.04 ml/min/mmHg/ L [facility] DLCO/VAcor (ml/min/mmHg/L) 0.04 ml/min/mmHg/ L [facility] DLCOcor (ml/min/mmHg) 15.44 ml/min/mmHg [facility] DLCOcor PREDICTED (ml/min/mmHg) 20.77 ml/min/mmHg [facility] ERV PREDICTED (L) 1.06 L/S [facility] FEF25% PRE (L/S) 4.91 L/S [facility] d [facility] AVB02-15% LLN (L/S) 0.98 L/S [facility] XMJ55-64% PRE (L/S) 0.63 L/S [facility] CCV20-96% PREDICTED (L/S) 2.08 L/S [facility] FEF75% LLN (L/S) 0.2 L/S [facility] FEF75% PRE (L/S0 0.17 L/S [facility] FEF75% PREDICTED (L/S) 0.54 L/S [facility] FEF75% ULN (L/S) 1.39 L/S [facility] FET PRE (S) 11.88 S [facility] FEV1 LLN (L) 1.73 L [facility] FEV1 PRE (L) 1.55 L [facility] FEV1 PREDICTED (L) 2.47 L [facility] FEV1 ULN (L) 3.16 L [facility] FEV1/FVC LLN (%) 66 % [facility] FEV1/FVC PRE (%) 66 % [facility] FEV1/FVC PREDICTED (%) 78 % [facility] FVC LLN (L) 2.27 L [facility] FVC PRE (L) 2.34 L [facility] FVC PREDICTED (L) 3.19 L [facility] FVC ULN (L) 4.14 L [facility] IC PREDICTED (L) 2.13 L/S [facility] PEF LLN (L/S) 4.41 L/S [facility] PEF PRE (L/S) 6.35 L/S [facility] PEF ULN (L/S) 8.2 L/S [facility] SVC LLN (L) 2.27 L/S [facility] SVC PREDICTED (L) 3.19 L/S [facility] SVC ULN (L) 4.14 L/S [facility] VA (L) 4.06 L [facility] VA PREDICTED (L) 5.13 L [facility] SPIROMETRY BASELINE ONLY [address] [place] [address] Test Date: 2024-08-19 Pat Name: KASSANDRA SMITH Department: Room: 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 Start of test and EOFE criteria met. Current ATS/ERS acceptability and repeatability standards for DLCO met with 2 acceptable maneuvers. Height taken on 08/19/24.//LC IMPRESSION: Spirometry is normal except for an isolated decreased fev1. The diffusing capacity (uncorrected for hemoglobin) is reduced. Electronically Signed On 08-19-2024 13:54:56 EDT by Radha Ruiz MD ID: [id number] Name: KASSANDRA SMITH Race: White Ht: 67.40 in Wt: 184.97 lbs Age: 69 Gender: Female : 1955 Dx: Hypersensitivity pneumonitis_ Smoking Hx: Ex-smoker Doctor: IVAN TALAVERA Test Date: 08/19/2024 Site: [place] Tech: Naty Melgar PRE-BRONCH POST-BRONCH Veena LLN Pred ULN %Pred ZScore Veena %Pred %Chg ZScore SPIROMETRY FVC 2.34 2.27 3.19 4.14 73 -1.52 FEV1 1.55 1.73 2.47 3.16 62 -2.02 FEV1/FVC 0.66 0.66 0.78 0.88 84 -1.55 FEFMax 6.35 4.41 6.30 8.20 100 0.04 FEF50 1.19 1.81 3.42 5.03 34 -2.28 FIF50 4.05 FEF50/FIF50 0.29 90-100 FIVC 2.27 UCC56-50 0.63 0.98 2.08 3.63 30 -2.37 ExpiredTime 11.88 TimeToFEFMax 0.07 JOSÉ 0.06 VolExtrap% 2 LUNG DIFFUSION DLCOunc 15.65 15.69 20.77 27.03 75 -1.66 DLCOStdPB 15.44 15.69 20.77 27.03 74 -1.74 VA 4.06 4.11 5.13 6.25 79 -1.73 Kco 3.80 3.08 4.02 5.09 94 -0.36 Comments: Current ATS/ERS acceptability and repeatability standards for spirometry met. Start of test and EOFE criteria met. Current ATS/ERS acceptability and repeatability standards for DLCO met with 2 acceptable maneuvers. Height taken on 08/19/24.//LC FVC_PRE (L) : 2.34 L FVC_PRED (L) : 3.19 L FVC_LLN (L) : 2.27 L FVC_ULN (L) : 4.14 L FEV1_PRE (L) : 1.55 L FEV1_PRED (L) : 2.47 L FEV1_LLN (L) : 1.73 L FEV1_ULN (L) : 3.16 L FEV1/FVC_PRE (%) : 66 % FEV1/FVC_PRED (%) : 78 % FEV1/FVC_LLN (%) : 66 % KWB86_XLB (L/S) : 4.91 L/S SPW98_DCA (L/S) : 0.17 L/S CGE24_YXCY (L/S) : 0.54 L/S OGG18_DGW (L/S) : 0.20 L/S DBA26_WQE (L/S) : 1.39 L/S YBR75-94%_PRE (L/S) : 0.63 L/S DCO35-32%_PRED (L/S) : 2.08 L/S NMT89-74%_LLN (L/S) : 0.98 L/S PEF_PRE (L/S) : 6.35 L/S PEFMAX_LLN (L/S) : 4.41 L/S PEFMAX_ULN (L/S) : 8.20 L/S SVC_PRED (L) : 3.19 L/S SVC_LLN (L) : 2.27 L/S SVC_ULN (L/S) : 4.14 L/S IC_PRED (L) : 2.13 L/S ERV_PREDICTED (L) : 1.06 L/S DLCO (ML/MIN/MMHG) : 15.65 ml/min/mmHg DLCO_PRED (ML/MIN/MMHG) : 20.77 ml/min/mmHg DLCO_LLN(ML/MIN/MMHG) : 15.69 ml/min/mmHg DLCO_ULN (ML/MIN/MMHG) : 27.03 ml/min/mmHg FET_PRE (S) : 11.88 S VA (L) : 4.06 L VA_PRD (L) : 5.13 L DLCO/VA (ML/MIN/MMHG/L) : 0.04 ml/min/mmHg/L DLCO_VA_PRED (L) : 0.04 ml/min/mmHg/L DLCOCOR (ML/MIN/MMHG) : 15.44 ml/min/mmHg DLCOCOR_PRED (ML/MIN/MMHG) : 20.77 ml/min/mmHg DLCO/VACOR (ML/MIN/MMHG/L) : 0.04 ml/min/mmHg/L Normal [facility] Basic metabolic 2000 panelon 08-17-2024 Anion gap [Moles/Vol] 14 mmol/L 10 - 20 mmol/L [facility] Calcium [Mass/Vol] 9.3 mg/dL 8.6 - 10. 3 mg/dL [facility] Chloride [Moles/Vol] 101 mmol/L 98 - 10 7 mmol/L [facility] CO2 [Moles/Vol] 32 mmol/L 21 - 32 mmol/L [facility] Creatinine [Mass/Vol] 0.68 mg/dL 0.50 - 1.05 mg/dL [facility] eGFR - PINF [facility] Comment on above: Calculations of brandyn mated GFR are performed using the 2020 CKD-EPI Study Refit equation without the race variable for the IDMS-Traceable creatinine methods. https://jasn.asnjournals.org/content//ASN.8470579 988 Glucose [Mass/Vol] 113 mg/dL High 74 - 99 mg/dL [facility] Interpretation and review of laboratory results Abnormal [facility] Potassium [Moles/Vol] 4.3 mmol/L 3.5 - 5.3 mmol/L [facility] Sodium [Moles/Vol] 143 mmol/L 136 - 145 mmol/L [facility] Urea nitrogen [Mass/Vol] 12 mg/dL 6 - 23 mg/dL [facility] Anion gap [Moles/Vol] 14 mmol/L Normal 10-20 [facility] Comment on above: Performed By: #### 1 9123-9 #### INES CHASE ([id number]) [facility] ([facility]) [address] [place] [address] Calcium [Mass/Vol] 9.3 mg/dL Normal 8.6-10.3 [facility] Comment on above: Performed By: #### 1 9123-9 #### INES CHASE ([id number]) [facility] ([facility]) [address] [place] [address] Chloride [Moles/Vol] 101 mmol/L Normal 98-107 [facility] Comment on above: Performed By: #### 1 9123-9 #### INES CHASE ([id number]) [facility] ([facility]) [address] [place] [address] CO2 [Moles/Vol] 32 mmol/L Normal 21-32 [facility] Comment on above: Performed By: #### 1 9123-9 #### INES CHASE ([id number]) [facility] ([facility]) [address] [place] [address] Creatinine [Mass/Vol] 0.68 mg/dL Normal 0.50-1.05 [facility] Comment on above: Performed By: #### 1 9123-9 #### INES CHASE ([id number]) [facility] ([facility]) [address] [place] [address] GFR/1.73 sq M.predicted MDRD (S/P/Bld) [Vol rate/Area] mL/min/{1.73_m2} Normal >60 [facility] Comment on above: Result Comment: Calc ulations of estimated GFR are performed using the 2020 CKD-EPI Study Refit equation without the race variable for the IDMS-Traceable creatinine methods. https://jasn.asnjournals.org/content/early/ASN.1728394 988 Performed By: #### 1 9123-9 #### INES CHASE ([id number]) [facility] ([facility]) [address] [place] [address] Glucose [Mass/Vol] 113 mg/dL High 74-99 [facility] Comment on above: Performed By: #### 1 9123-9 #### INES CHASE ([id number]) [facility] ([facility]) [address] [place] [address] Potassium [Moles/Vol] 4.3 mmol/L Normal 3.5-5.3 [facility] Comment on above: Performed By: #### 1 9123-9 #### INES CHASE (549010) [facility] ([facility]) [address] [place] [address] Sodium [Moles/Vol] 143 mmol/L Normal 136-145 [facility] Comment on above: Performed By: #### 1 9123-9 #### INES CHASE ([id number]) [facility] ([facility]) [address] [place] [address] Urea nitrogen [Mass/Vol] 12 mg/dL Normal 6-23 [facility] Comment on above: Performed By: #### 1 9123-9 #### INES CHASE ([id number]) [facility] ([facility]) [address] [place] [address] CBC W Auto Differential pane l (Bld)on 08-17-2024 Basophils (Bld) [#/Vol] 0.01 10*3/uL [facility] Basophils/100 WBC (Bld) 0.1 % 0.0 - 2.0 % [facility] Eosinophils (Bld) [#/Vol] 0 10*3/uL [facility] Eosinophils/100 WBC (Bld) 0 % 0.0 - 6.0 % [facility] Erythrocyte distribution width (RBC) [Ratio] 12.8 % 11.5 - 14.5 % [facility] Hematocrit (Bld) [Volume fraction] 47.3 % High 36.0 - 46.0 % [facility] Hemoglobin (Bld) [Mass/Vol] 14.9 g/dL 12.0 - 16.0 g/dL [facility] Immature granulocytes (Bld) [#/Vol] 0.05 10*3/uL [facility] Immature granulocytes/100 WBC (Bld) 0.6 % 0.0 - 0.9 % [facility] Comment on above: Immature Granulocyte Count (IG) includes promyelocytes, myelocytes and metamyelocytes but does not include bands. Percent differential counts (%) should be interpreted in the context of the absolute cell counts (cells/UL). Interpretation and review of laboratory results Abnormal [facility] Lymphocytes (Bld) [#/Vol] 0.81 10*3/uL Low [facility] Lymphocytes/100 WBC (Bld) 9 % 13.0 - 44.0 % [facility] MCH (RBC) [Entitic mass] 32.3 pg 26.0 - 34.0 pg [facility] MCHC (RBC) [Mass/Vol] 31.5 g/dL Low 32.0 - 36.0 g/dL [facility] MCV (RBC) [Entitic vol] 102 fL High 80 - 100 fL [facility] Monocytes (Bld) [#/Vol] 0.29 10*3/uL [facility] Monocytes/100 WBC (Bld) 3.2 % 2.0 - 10.0 % [facility] Neutrophils (Bld) [#/Vol] 7.87 10*3/uL High [facility] Comment on above: Percent differential counts (%) should be interpreted in the context of the absolute cell counts (cells/uL). Neutrophils/100 WBC (Bld) 87.1 % 40.0 - 80.0 % [facility] Nucleated RBC/100 WBC (Bld) [Ratio] 0 % [facility] Platelets (Bld) [#/Vol] 270 10*3/uL [facility] RBC (Bld) [#/Vol] 4.62 10*6/uL [facility] WBC (Bld) [#/Vol] 9 10*3/uL [facility] Basophils (Bld) [#/Vol] 0.01 x10*3/uL Normal 0.00-0.10 [facility] Comment on above: Performed By: #### 1 9123-9 #### INES CHASE ([id number]) [facility] ([facility]) [address] [place] [address] Basophils/100 WBC (Bld) 0.1 % Normal 0.0-2.0 [facility] Comment on above: Performed By: #### 1 9123-9 #### INES CHASE ([id number]) [facility] ([facility]) [address] [place] [address] Eosinophils (Bld) [#/Vol] 0.00 x10*3/uL Normal 0.00-0.70 [facility] Comment on above: Performed By: #### 1 9123-9 #### INES CHASE ([id number]) [facility] ([facility]) [address] [place] [address] Eosinophils/100 WBC (Bld) 0.0 % Normal 0.0-6.0 [facility] Comment on above: Performed By: #### 1 9123-9 #### INES CHASE ([id number]) [facility] ([facility]) [address] [place] [address] Erythrocyte distribution width (RBC) [Ratio] 12.8 % Normal 11.5-14.5 [facility] Comment on above: Performed By: #### 1 9123-9 #### INES CHASE ([id number]) [facility] ([facility]) [address] [place] [address] Hematocrit (Bld) [Volume fraction] 47.3 % High 36.0-46.0 [facility] Comment on above: Performed By: #### 1 9123-9 #### INES CHASE ([id number]) [facility] ([facility]) [address] [place] [address] Hemoglobin (Bld) [Mass/Vol] 14.9 g/dL Normal 12.0-16.0 [facility] Comment on above: Performed By: #### 1 9123-9 #### INES CHASE ([id number]) [facility] ([facility]) [address] [place] [address] Immature granulocytes (Bld) [#/Vol] 0.05 x10*3/uL Normal 0.00-0.70 [facility] Comment on above: Performed By: #### 1 9123-9 #### INES CHASE (960948) [facility] ([facility]) [address] [place] [address] Immature granulocytes/100 WBC (Bld) 0.6 % Normal 0.0-0.9 [facility] Comment on above: Result Comment: Betty ture Granulocyte Count (IG) includes promyelocytes, myelocytes and metamyelocytes but does not include bands. Percent differential counts (%) should be interpreted in the context of the absolute cell counts (cells/UL). Performed By: #### 1 9123-9 #### INES CHASE ([id number]) [facility] ([facility]) [address] [place] [address] Lymphocytes (Bld) [#/Vol] 0.81 x10*3/uL Low 1.20-4.80 [facility] Comment on above: Performed By: #### 1 9123-9 #### INES CHASE ([id number]) [facility] ([facility]) [address] [place] [address] Lymphocytes/100 WBC (Bld) 9.0 % Normal 13.0-44.0 [facility] Comment on above: Performed By: #### 1 9123-9 #### INES CHASE ([id number]) [facility] ([facility]) [address] [place] [address] MCH (RBC) [Entitic mass] 32.3 pg Normal 26.0-34.0 [facility] Comment on above: Performed By: #### 1 9123-9 #### INES CHASE ([id number]) [facility] ([facility]) [address] [place] [address] MCHC (RBC) [Mass/Vol] 31.5 g/dL Low 32.0-36.0 [facility] Comment on above: Performed By: #### 1 9123-9 #### INES CHASE ([id number]) [facility] ([facility]) [address] [place] [address] MCV (RBC) [Entitic vol] 102 fL High 80-100 [facility] Comment on above: Performed By: #### 1 9123-9 #### INES CHASE ([id number]) [facility] ([facility]) [address] [place] [address] Monocytes (Bld) [#/Vol] 0.29 x10*3/uL Normal 0.10-1.00 [facility] Comment on above: Performed By: #### 1 9123-9 #### INES CHASE ([id number]) [facility] ([facility]) [address] [place] [address] Monocytes/100 WBC (Bld) 3.2 % Normal 2.0-10.0 [facility] Comment on above: Performed By: #### 1 9123-9 #### INES CHASE ([id number]) [facility] ([facility]) [address] [place] [address] Neutrophils (Bld) [#/Vol] 7.87 x10*3/uL High 1.20-7.70 [facility] Comment on above: Result Comment: Perc ent differential counts (%) should be interpreted in the context of the absolute cell counts (cells/uL). Performed By: #### 1 9123-9 #### INES CHASE ([id number]) [facility] ([facility]) [address] [place] [address] Neutrophils/100 WBC (Bld) 87.1 % Normal 40.0-80.0 [facility] Comment on above: Performed By: #### 1 9123-9 #### INES CHASE (337090) [facility] ([facility]) [address] [place] [address] Nucleated RBC/100 WBC (Bld) [Ratio] 0.0 /100 WBCs Normal 0.0-0.0 [facility] Comment on above: Performed By: #### 1 9123-9 #### INES CHASE ([id number]) [facility] ([facility]) [address] [place] [address] Platelets (Bld) [#/Vol] 270 x10*3/uL Normal 150-450 [facility] Comment on above: Performed By: #### 1 9123-9 #### INES CHASE ([id number]) [facility] ([facility]) [address] [place] [address] RBC (Bld) [#/Vol] 4.62 x10*6/uL Normal 4.00-5.20 [facility] Comment on above: Performed By: #### 1 9123-9 #### INES CHASE ([id number]) [facility] ([facility]) [address] [place] [address] WBC (Bld) [#/Vol] 9.0 x10*3/uL Normal 4.4-11.3 [facility] Comment on above: Performed By: #### 1 9123-9 #### INES CHASE ([id number]) [facility] ([facility]) [address] [place] [address] Basic metabolic 2000 panelon 08-16-2024 Anion gap [Moles/Vol] 9 mmol/L Low 10 - 20 mmol/L [facility] Calcium [Mass/Vol] 8.9 mg/dL 8.6 - 10. 3 mg/dL [facility] Chloride [Moles/Vol] 106 mmol/L 98 - 10 7 mmol/L [facility] CO2 [Moles/Vol] 30 mmol/L 21 - 32 mmol/L [facility] Creatinine [Mass/Vol] 0.77 mg/dL 0.50 - 1.05 mg/dL [facility] GFR/1.73 sq M.predicted among non-blacks MDRD (S/P/Bld) [Vol rate/Area] 84 mL/min/{1.73_m2} - PINF [facility] Comment on above: Calculations of brandyn mated GFR are performed using the 2020 CKD-EPI Study Refit equation without the race variable for the IDMS-Traceable creatinine methods. https://chalinosn.asnjournals.org/content/early//ASN.0231562 988 Glucose [Mass/Vol] 91 mg/dL 74 - 99 mg/dL [facility] Interpretation and review of laboratory results Abnormal [facility] Potassium [Moles/Vol] 4 mmol/L 3.5 - 5.3 mmol/L [facility] Sodium [Moles/Vol] 141 mmol/L 136 - 145 mmol/L [facility] Urea nitrogen [Mass/Vol] 14 mg/dL 6 - 23 mg/dL [facility] Anion gap [Moles/Vol] 9 mmol/L Low 10-20 [facility] Comment on above: Performed By: #### 1 9123-9 #### INES CHASE ([id number]) [facility] ([facility]) [address] [place] [address] Calcium [Mass/Vol] 8.9 mg/dL Normal 8.6-10.3 [facility] Comment on above: Performed By: #### 1 9123-9 #### INES CHASE ([id number]) [facility] ([facility]) [address] [place] [address] Chloride [Moles/Vol] 106 mmol/L Normal 98-107 [facility] Comment on above: Performed By: #### 1 9123-9 #### INES CHASE ([id number]) [facility] ([facility]) [address] [place] [address] CO2 [Moles/Vol] 30 mmol/L Normal 21-32 [facility] Comment on above: Performed By: #### 1 9123-9 #### INES CHASE (648861) [facility] ([facility]) [address] [place] [address] Creatinine [Mass/Vol] 0.77 mg/dL Normal 0.50-1.05 [facility] Comment on above: Performed By: #### 1 9123-9 #### INES CHASE (845348) [facility] ([facility]) [address] [place] [address] Glomerular filtration rate/1.73 sq M.predicted 84 mL/min/1.73m*2 Normal >60 [facility] Comment on above: Result Comment: Calc ulations of estimated GFR are performed using the 2020 CKD-EPI Study Refit equation without the race variable for the IDMS-Traceable creatinine methods. https://jasn.asnjournals.org/content//ASN.1261574 988 Performed By: #### 1 9123-9 #### INES CHASE ([id number]) [facility] ([facility]) [address] [place] [address] Glucose [Mass/Vol] 91 mg/dL Normal 74-99 [facility] Comment on above: Performed By: #### 1 9123-9 #### INES CHASE (698073) [facility] ([facility]) [address] [place] [address] Potassium [Moles/Vol] 4.0 mmol/L Normal 3.5-5.3 [facility] Comment on above: Performed By: #### 1 9123-9 #### INES CHASE (231438) [facility] ([facility]) [address] [place] [address] Sodium [Moles/Vol] 141 mmol/L Normal 136-145 [facility] Comment on above: Performed By: #### 1 9123-9 #### INES CHASE ([id number]) [facility]) [address] [place] [address] Urea nitrogen [Mass/Vol] 14 mg/dL Normal 6-23 [facility] Comment on above: Performed By: #### 1 9123-9 #### INES CHASE ([id number]) [facility] ([facility]) [address] [place] [address] CBC W Auto Differential pane l (Bld)on 08-16-2024 Basophils (Bld) [#/Vol] 0.05 10*3/uL [facility] Basophils/100 WBC (Bld) 0.5 % 0.0 - 2.0 % [facility] Eosinophils (Bld) [#/Vol] 0.13 10*3/uL [facility] Eosinophils/100 WBC (Bld) 1.4 % 0.0 - 6.0 % [facility] Erythrocyte distribution width (RBC) [Ratio] 13.1 % 11.5 - 14.5 % [facility] Hematocrit (Bld) [Volume fraction] 45.3 % 36.0 - 46.0 % [facility] Hemoglobin (Bld) [Mass/Vol] 14 g/dL 12.0 - 16.0 g/dL [facility] Immature granulocytes (Bld) [#/Vol] 0.04 10*3/uL [facility] Immature granulocytes/100 WBC (Bld) 0.4 % 0.0 - 0.9 % [facility] Comment on above: Immature Granulocyte Count (IG) includes promyelocytes, myelocytes and metamyelocytes but does not include bands. Percent differential counts (%) should be interpreted in the context of the absolute cell counts (cells/UL). Interpretation and review of laboratory results Abnormal [facility] Lymphocytes (Bld) [#/Vol] 1.26 10*3/uL [facility] Lymphocytes/100 WBC (Bld) 13.1 % 13.0 - 44.0 % [facility] MCH (RBC) [Entitic mass] 31.8 pg 26.0 - 34.0 pg [facility] MCHC (RBC) [Mass/Vol] 30.9 g/dL Low 32.0 - 36.0 g/dL [facility] MCV (RBC) [Entitic vol] 103 fL High 80 - 100 fL [facility] Monocytes (Bld) [#/Vol] 0.59 10*3/uL [facility] Monocytes/100 WBC (Bld) 6.1 % 2.0 - 10.0 % [facility] Neutrophils (Bld) [#/Vol] 7.54 10*3/uL [facility] Comment on above: Percent differential counts (%) should be interpreted in the context of the absolute cell counts (cells/uL). Neutrophils/100 WBC (Bld) 78.5 % 40.0 - 80.0 % [facility] Nucleated RBC/100 WBC (Bld) [Ratio] 0 % [facility] Platelets (Bld) [#/Vol] 227 10*3/uL [facility] RBC (Bld) [#/Vol] 4.4 10*6/uL [facility] WBC (Bld) [#/Vol] 9.6 10*3/uL [facility] Basophils (Bld) [#/Vol] 0.05 x10*3/uL Normal 0.00-0.10 [facility] Comment on above: Performed By: #### 1 9123-9 #### INES CHASE ([id number]) [facility] ([facility]) [address] [place] [address] Basophils/100 WBC (Bld) 0.5 % Normal 0.0-2.0 [facility] Comment on above: Performed By: #### 1 9123-9 #### INES CHASE ([id number]) [facility] ([facility]) [address] [place] [address] Eosinophils (Bld) [#/Vol] 0.13 x10*3/uL Normal 0.00-0.70 [facility] Comment on above: Performed By: #### 1 9123-9 #### INES CHASE ([id number]) [facility] ([facility]) [address] [place] [address] Eosinophils/100 WBC (Bld) 1.4 % Normal 0.0-6.0 [facility] Comment on above: Performed By: #### 1 9123-9 #### INES CHASE ([id number]) [facility] ([facility]) [address] [place] [address] Erythrocyte distribution width (RBC) [Ratio] 13.1 % Normal 11.5-14.5 [facility] Comment on above: Performed By: #### 1 9123-9 #### INES CHASE ([id number]) [facility] ([facility]) [address] [place] [address] Hematocrit (Bld) [Volume fraction] 45.3 % Normal 36.0-46.0 [facility] Comment on above: Performed By: #### 1 9123-9 #### INES CHASE ([id number]) [facility] ([facility]) [address] [place] [address] Hemoglobin (Bld) [Mass/Vol] 14.0 g/dL Normal 12.0-16.0 [facility] Comment on above: Performed By: #### 1 9123-9 #### INES CHASE ([id number]) [facility] ([facility]) [address] [place] [address] Immature granulocytes (Bld) [#/Vol] 0.04 x10*3/uL Normal 0.00-0.70 [facility] Comment on above: Performed By: #### 1 9123-9 #### INES CHASE ([id number]) [facility] ([facility]) [address] [place] [address] Immature granulocytes/100 WBC (Bld) 0.4 % Normal 0.0-0.9 [facility] Comment on above: Result Comment: Betty ture Granulocyte Count (IG) includes promyelocytes, myelocytes and metamyelocytes but does not include bands. Percent differential counts (%) should be interpreted in the context of the absolute cell counts (cells/UL). Performed By: #### 1 9123-9 #### INES CHASE ([id number]) [facility] ([facility]) [address] [place] [address] Lymphocytes (Bld) [#/Vol] 1.26 x10*3/uL Normal 1.20-4.80 [facility] Comment on above: Performed By: #### 1 9123-9 #### INES CHASE ([id number]) [facility] ([facility]) [address] [place] [address] Lymphocytes/100 WBC (Bld) 13.1 % Normal 13.0-44.0 [facility] Comment on above: Performed By: #### 1 9123-9 #### INES CHASE ([id number]) [facility] ([facility]) [address] [place] [address] MCH (RBC) [Entitic mass] 31.8 pg Normal 26.0-34.0 [facility] Comment on above: Performed By: #### 1 9123-9 #### INES CHASE ([id number]) [facility] ([facility]) [address] [place] [address] MCHC (RBC) [Mass/Vol] 30.9 g/dL Low 32.0-36.0 [facility] Comment on above: Performed By: #### 1 9123-9 #### INES CHASE ([id number]) [facility] ([facility]) [address] [place] [address] MCV (RBC) [Entitic vol] 103 fL High 80-100 [facility] Comment on above: Performed By: #### 1 9123-9 #### INES CHASE ([id number]) [facility] ([facility]) [address] [place] [address] Monocytes (Bld) [#/Vol] 0.59 x10*3/uL Normal 0.10-1.00 [facility] Comment on above: Performed By: #### 1 9123-9 #### INES CHASE ([id number]) [facility] ([facility]) [address] [place] [address] Monocytes/100 WBC (Bld) 6.1 % Normal 2.0-10.0 [facility] Comment on above: Performed By: #### 1 9123-9 #### INES CHASE ([id number]) [facility] ([facility]) [address] [place] [address] Neutrophils (Bld) [#/Vol] 7.54 x10*3/uL Normal 1.20-7.70 [facility] Comment on above: Result Comment: Perc ent differential counts (%) should be interpreted in the context of the absolute cell counts (cells/uL). Performed By: #### 1 9123-9 #### INES CHASE ([id number]) [facility] ([facility]) [address] [place] [address] Neutrophils/100 WBC (Bld) 78.5 % Normal 40.0-80.0 [facility] Comment on above: Performed By: #### 1 9123-9 #### INES CHASE ([id number]) [facility] ([facility]) [address] [place] [address] Nucleated RBC/100 WBC (Bld) [Ratio] 0.0 /100 WBCs Normal 0.0-0.0 [facility] Comment on above: Performed By: #### 1 9123-9 #### INES CHASE ([id number]) [facility] ([facility]) [address] [place] [address] Platelets (Bld) [#/Vol] 227 x10*3/uL Normal 150-450 [facility] Comment on above: Performed By: #### 1 9123-9 #### INES CHASE ([id number]) [facility] ([facility]) [address] [place] [address] RBC (Bld) [#/Vol] 4.40 x10*6/uL Normal 4.00-5.20 [facility] Comment on above: Performed By: #### 1 9123-9 #### INES CHASE ([id number]) [facility] ([facility]) [address] [place] [address] WBC (Bld) [#/Vol] 9.6 x10*3/uL Normal 4.4-11.3 [facility] Comment on above: Performed By: #### 1 9123-9 #### INES CHASE ([id number]) [facility] ([facility]) [address] [place] [address] Basic metabolic 2000 panelon 08-15-2024 Anion gap [Moles/Vol] 10 mmol/L 10 - 20 mmol/L [facility] Calcium [Mass/Vol] 8.5 mg/dL Low 8.6 - 10. 3 mg/dL [facility] Chloride [Moles/Vol] 108 mmol/L High 98 - 10 7 mmol/L [facility] CO2 [Moles/Vol] 28 mmol/L 21 - 32 mmol/L [facility] Creatinine [Mass/Vol] 0.82 mg/dL 0.50 - 1.05 mg/dL [facility] GFR/1.73 sq M.predicted among non-blacks MDRD (S/P/Bld) [Vol rate/Area] 78 mL/min/{1.73_m2} - PINF [facility] Comment on above: Calculations of brandyn mated GFR are performed using the 2020 CKD-EPI Study Refit equation without the race variable for the IDMS-Traceable creatinine methods. https://jasn.asnjournals.org/content/early/ASN.2658057 988 Glucose [Mass/Vol] 108 mg/dL High 74 - 99 mg/dL [facility] Interpretation and review of laboratory results Abnormal [facility] Potassium [Moles/Vol] 4.3 mmol/L 3.5 - 5.3 mmol/L [facility] Sodium [Moles/Vol] 142 mmol/L 136 - 145 mmol/L [facility] Urea nitrogen [Mass/Vol] 14 mg/dL 6 - 23 mg/dL [facility] Anion gap [Moles/Vol] 10 mmol/L Normal 10-20 [facility] Comment on above: Performed By: #### 2 4321-2 ####INES CHASE ([id number])[facility] ([facility])[address] [facility] [place] [address] Calcium [Mass/Vol] 8.5 mg/dL Low 8.6-10.3 [facility] Comment on above: Performed By: #### 2 4321-2 ####INES CHASE ([id number])[facility] ([facility])[address] [facility] [place] [address] Chloride [Moles/Vol] 108 mmol/L High 98-107 [facility] Comment on above: Performed By: #### 2 4321-2 ####INES CHASE ([id number])[facility] ([facility])[address] [facility] [place] [address] CO2 [Moles/Vol] 28 mmol/L Normal 21-32 [facility] Comment on above: Performed By: #### 2 4321-2 ####INES CHASE ([id number])[facility] ([facility])[address] [place] [address] Creatinine [Mass/Vol] 0.82 mg/dL Normal 0.50-1.05 [facility] Comment on above: Performed By: #### 2 4321-2 ####INES CHASE ([id number])[facility] ([facility])[address] [place] [address] Glomerular filtration rate/1.73 sq M.predicted 78 mL/min/1.73m*2 Normal >60 [facility] Comment on above: Result Comment: Calc ulations of estimated GFR are performed using the 2020 CKD-EPI Study Refit equation without the race variable for the IDMS-Traceable creatinine methods. https://jasn.asnjournals.org/content//ASN.8029313 988 Performed By: #### 2 1-2 ####INES CHASE ([id number])[facility] ([facility])[address] [place] [address] Glucose [Mass/Vol] 108 mg/dL High 74-99 [facility] Comment on above: Performed By: #### 2 1-2 ####INES CHASE ([id number])[facility] ([facility])[address] [place] [address] Potassium [Moles/Vol] 4.3 mmol/L Normal 3.5-5.3 [facility] Comment on above: Performed By: #### 2 4321-2 ####INES CHASE ([id number])[facility] ([facility])[address] [place] [address] Sodium [Moles/Vol] 142 mmol/L Normal 136-145 [facility] Comment on above: Performed By: #### 2 432-2 ####INES CHASE ([id number])[facility] ([facility])[address] [place] [address] Urea nitrogen [Mass/Vol] 14 mg/dL Normal 6-23 [facility] Comment on above: Performed By: #### 2 4321-2 ####INES CHASE ([id number])[facility] ([facility])[address] [place] [address] CBC panel Auto (Bld)on 08-15 Erythrocyte distribution width (RBC) [Ratio] 13 % 11.5 - 14.5 % [facility] Hematocrit (Bld) [Volume fraction] 43.4 % 36.0 - 46.0 % [facility] Hemoglobin (Bld) [Mass/Vol] 13.5 g/dL 12.0 - 16.0 g/dL [facility] Interpretation and review of laboratory results Abnormal [facility] MCH (RBC) [Entitic mass] 32 pg 26.0 - 34.0 pg [facility] MCHC (RBC) [Mass/Vol] 31.1 g/dL Low 32.0 - 36.0 g/dL [facility] MCV (RBC) [Entitic vol] 103 fL High 80 - 100 fL [facility] Nucleated RBC/100 WBC (Bld) [Ratio] 0 % [facility] Platelets (Bld) [#/Vol] 244 10*3/uL [facility] RBC (Bld) [#/Vol] 4.22 10*6/uL [facility] WBC (Bld) [#/Vol] 13.5 10*3/uL [place] [facility]rythrocyte distribution width (RBC) [Ratio] 13.0 % Normal 11.5-14.5 [facility] Comment on above: Performed By: #### 5 8410-2 ####INES CHASE ([id number])[facility] ([facility])[address] [place] [address] Hematocrit (Bld) [Volume fraction] 43.4 % Normal 36.0-46.0 [facility] Comment on above: Performed By: #### 5 8410-2 ####INES CHASE ([id number])[facility] ([facility])[address] [place] [address] Hemoglobin (Bld) [Mass/Vol] 13.5 g/dL Normal 12.0-16.0 [facility] Comment on above: Performed By: #### 5 8410-2 ####INES CHASE ([id number])[facility] ([facility])[address] [place] [address] MCH (RBC) [Entitic mass] 32.0 pg Normal 26.0-34.0 [facility] Comment on above: Performed By: #### 5 8410-2 ####INES CHASE ([id number])[facility] ([facility])[address] [place] [address] MCHC (RBC) [Mass/Vol] 31.1 g/dL Low 32.0-36.0 [facility] Comment on above: Performed By: #### 5 8410-2 ####INES CHASE ([id number])[facility] ([facility])[address] [place] [address] MCV (RBC) [Entitic vol] 103 fL High 80-100 [facility] Comment on above: Performed By: #### 5 8410-2 ####INES CHASE ([id number])[facility] ([facility])[address] [place] [address] Nucleated RBC/100 WBC (Bld) [Ratio] 0.0 /100 WBCs Normal 0.0-0.0 [facility] Comment on above: Performed By: #### 5 8410-2 ####INES CHASE ([id number])[facility] ([facility])[address] [place] [address] Platelets (Bld) [#/Vol] 244 x10*3/uL Normal 150-450 [facility] Comment on above: Performed By: #### 5 8410-2 ####INES CHASE ([id number])[facility] ([facility])[address] [place] [address] RBC (Bld) [#/Vol] 4.22 x10*6/uL Normal 4.00-5.20 [facility] Comment on above: Performed By: #### 5 8410-2 ####INES CHASE ([id number])[facility] ([facility])[address] [place] [address] WBC (Bld) [#/Vol] 13.5 x10*3/uL High 4.4-11.3 [facility] Comment on above: Performed By: #### 5 8410-2 ####INES RENA ([id number])[facility] ([facility])[address] [place] [address] XR CHEST 1 VIEWon 08-15-2024 XR CHEST 1 VIEW Interpreted By: Isaiah Guido, STUDY: XR CHEST 1 VIEW; 08/15/2024 1:54 pm INDICATION: Signs/Symptoms:acute hypoxia. COMPARISON: Chest x-ray 01/03/2024 ACCESSION NUMBER(S): [id number] ORDERING CLINICIAN: BRIGHT ESCOBEDO TECHNIQUE: 1 view of the chest was performed. FINDINGS: Right lower ill-defined opacity. Trace left basal atelectasis. No major infiltrates. No pneumothorax. The cardiomediastinal silhouette is stable. IMPRESSION: 1. Right lower small ill-defined opacity unclear if atelectasis or infiltrates and would warrant follow-up to ensure resolution. Signed by: Isaiah Brennan 08/15/2024 3:13 PM Dictation workstation: [id number] [facility] XR Chest Single viewon 08-15 1. Right lower small ill-defined opacity unclear if atelectasis or infiltrates and would warrant follow-up to ensure resolution. Signed by: Isaiah Brennan 08/15/2024 3:13 PM Dictation workstation: [id number] [facility] Interpreted By: Isaiah Guido, STUDY: XR CHEST 1 VIEW; 08/15/2024 1:54 pm INDICATION: Signs/Symptoms:acute hypoxia. COMPARISON: Chest x-ray 01/03/2024 ACCESSION NUMBER(S): [id number] ORDERING CLINICIAN: BRIGHT ESCOBEDO TECHNIQUE: 1 view of the chest was performed. FINDINGS: Right lower ill-defined opacity. Trace left basal atelectasis. No major infiltrates. No pneumothorax. The cardiomediastinal silhouette is stable. [facility]AL Isaiah Brennan MD - 08/15/2024 Interpreted By: Isaiah Brennan, STUDY: XR CHEST 1 VIEW; 08/15/2024 1:54 pm INDICATION: Signs/Symptoms:acute hypoxia. COMPARISON: Chest x-ray 01/03/2024 ACCESSION NUMBER(S): [id number] ORDERING CLINICIAN: BRIGHT ESCOBEDO TECHNIQUE: 1 view of the chest was performed. FINDINGS: Right lower ill-defined opacity. Trace left basal atelectasis. No major infiltrates. No pneumothorax. The cardiomediastinal silhouette is stable. IMPRESSION: 1. Right lower small ill-defined opacity unclear if atelectasis or infiltrates and would warrant follow-up to ensure resolution. Signed by: Isaiah Brennan 08/15/2024 3:13 PM Dictation workstation: [id number] [facility] Work Phone: Radiology Study observation (narrative) [facility] Work Phone: XR Chest Single viewOrdered By: Isaiah Brennan on 08-15-2024 [facility] Work Phone: CBC W Auto Differential pane l (Bld)on 08-14-2024 Basophils (Bld) [#/Vol] 0.01 10*3/uL [facility] Basophils/100 WBC (Bld) 0.1 % 0.0 - 2.0 % [facility] Eosinophils (Bld) [#/Vol] 0 10*3/uL [facility] Eosinophils/100 WBC (Bld) 0 % 0.0 - 6.0 % [facility] Erythrocyte distribution width (RBC) [Ratio] 13 % 11.5 - 14.5 % [facility] Hematocrit (Bld) [Volume fraction] 45.4 % 36.0 - 46.0 % [facility] Hemoglobin (Bld) [Mass/Vol] 14.5 g/dL 12.0 - 16.0 g/dL [facility] Immature granulocytes (Bld) [#/Vol] 0.06 10*3/uL [facility] Immature granulocytes/100 WBC (Bld) 0.7 % 0.0 - 0.9 % [facility] Comment on above: Immature Granulocyte Count (IG) includes promyelocytes, myelocytes and metamyelocytes but does not include bands. Percent differential counts (%) should be interpreted in the context of the absolute cell counts (cells/UL). Interpretation and review of laboratory results Abnormal [facility] Lymphocytes (Bld) [#/Vol] 0.54 10*3/uL Low [facility] Lymphocytes/100 WBC (Bld) 6 % 13.0 - 44.0 % [facility] MCH (RBC) [Entitic mass] 32.9 pg 26.0 - 34.0 pg [facility] MCHC (RBC) [Mass/Vol] 31.9 g/dL Low 32.0 - 36.0 g/dL [facility] MCV (RBC) [Entitic vol] 103 fL High 80 - 100 fL [facility] Monocytes (Bld) [#/Vol] 0.08 10*3/uL Low [facility] Monocytes/100 WBC (Bld) 0.9 % 2.0 - 10.0 % [facility] Neutrophils (Bld) [#/Vol] 8.31 10*3/uL High [facility] Comment on above: Percent differential counts (%) should be interpreted in the context of the absolute cell counts (cells/uL). Neutrophils/100 WBC (Bld) 92.3 % 40.0 - 80.0 % [facility] Nucleated RBC/100 WBC (Bld) [Ratio] 0 % [facility] Platelets (Bld) [#/Vol] 246 10*3/uL [facility] RBC (Bld) [#/Vol] 4.41 10*6/uL [facility] WBC (Bld) [#/Vol] 9 10*3/uL [facility] Basophils (Bld) [#/Vol] 0.01 x10*3/uL Normal 0.00-0.10 [facility] Comment on above: Performed By: #### 5 7021-8 ####INES CHASE ([id number])[facility] ([facility])[address] [place] [address] Basophils/100 WBC (Bld) 0.1 % Normal 0.0-2.0 [facility] Comment on above: Performed By: #### 5 7021-8 ####INES CHASE ([id number])[facility] ([facility])[address] [place] [address] Eosinophils (Bld) [#/Vol] 0.00 x10*3/uL Normal 0.00-0.70 [facility] Comment on above: Performed By: #### 5 7021-8 ####INES CHASE ([id number])[facility] ([facility])[address] [place] [address] Eosinophils/100 WBC (Bld) 0.0 % Normal 0.0-6.0 [facility] Comment on above: Performed By: #### 5 7021-8 ####INES CHASE ([id number])[facility] ([facility])[address] [place] [address] Erythrocyte distribution width (RBC) [Ratio] 13.0 % Normal 11.5-14.5 [facility] Comment on above: Performed By: #### 5 7021-8 ####INES CHASE ([id number])[facility] ([facility])[address] [place] [address] Hematocrit (Bld) [Volume fraction] 45.4 % Normal 36.0-46.0 [facility] Comment on above: Performed By: #### 5 7021-8 ####INES CHASE ([id number])[facility] ([facility])[address] [place] [address] Hemoglobin (Bld) [Mass/Vol] 14.5 g/dL Normal 12.0-16.0 [facility] Comment on above: Performed By: #### 5 7021-8 ####INES CHASE ([id number])[facility] ([facility])[address] [place] [address] Immature granulocytes (Bld) [#/Vol] 0.06 x10*3/uL Normal 0.00-0.70 [facility] Comment on above: Performed By: #### 5 7021-8 ####INES CHASE ([id number])[facility] ([facility])[address] [place] [address] Immature granulocytes/100 WBC (Bld) 0.7 % Normal 0.0-0.9 [facility] Comment on above: Result Comment: Betty ture Granulocyte Count (IG) includes promyelocytes, myelocytes and metamyelocytes but does not include bands. Percent differential counts (%) should be interpreted in the context of the absolute cell counts (cells/UL). Performed By: #### 5 7021-8 ####INES CHASE ([id number])[facility] ([facility])[address] [place] [address] Lymphocytes (Bld) [#/Vol] 0.54 x10*3/uL Low 1.20-4.80 [facility] Comment on above: Performed By: #### 5 7021-8 ####INES CHASE ([id number])[facility] ([facility])[address] [place] [address] Lymphocytes/100 WBC (Bld) 6.0 % Normal 13.0-44.0 [facility] Comment on above: Performed By: #### 5 7021-8 ####INES CHASE ([id number])[facility] ([facility])[address] [place] [address] MCH (RBC) [Entitic mass] 32.9 pg Normal 26.0-34.0 [facility] Comment on above: Performed By: #### 5 7021-8 ####INES CHASE ([id number])[facility] ([facility])[address] [place] [address] MCHC (RBC) [Mass/Vol] 31.9 g/dL Low 32.0-36.0 [facility] Comment on above: Performed By: #### 5 7021-8 ####INES CHASE ([id number])[facility] ([facility])[address] [place] [address] MCV (RBC) [Entitic vol] 103 fL High 80-100 [facility] Comment on above: Performed By: #### 5 7021-8 ####INES CHASE ([id number])[facility] ([facility])[address] [place] [address] Monocytes (Bld) [#/Vol] 0.08 x10*3/uL Low 0.10-1.00 [facility] Comment on above: Performed By: #### 5 7021-8 ####INES CHASE ([id number])[facility] ([facility])[address] [place] [address] Monocytes/100 WBC (Bld) 0.9 % Normal 2.0-10.0 [facility] Comment on above: Performed By: #### 5 7021-8 ####INES CHASE ([id number])[facility] ([facility])[address] [place] [address] Neutrophils (Bld) [#/Vol] 8.31 x10*3/uL High 1.20-7.70 [facility] Comment on above: Result Comment: Perc ent differential counts (%) should be interpreted in the context of the absolute cell counts (cells/uL). Performed By: #### 5 7021-8 ####INES CHASE ([id number])[facility] ([facility])[address] [place] [address] Neutrophils/100 WBC (Bld) 92.3 % Normal 40.0-80.0 [facility] Comment on above: Performed By: #### 5 7021-8 ####INES CHASE ([id number])[facility] ([facility])[address] [place] [address] Nucleated RBC/100 WBC (Bld) [Ratio] 0.0 /100 WBCs Normal 0.0-0.0 [facility] Comment on above: Performed By: #### 5 7021-8 ####INES CHASE ([id number])[facility] ([facility])[address] [place] [address] Platelets (Bld) [#/Vol] 246 x10*3/uL Normal 150-450 [facility] Comment on above: Performed By: #### 5 7021-8 ####INES CHASE ([id number])[facility] ([facility])[address] [place] [address] RBC (Bld) [#/Vol] 4.41 x10*6/uL Normal 4.00-5.20 [facility] Comment on above: Performed By: #### 5 7021-8 ####INES CHASE ([id number])[facility] ([facility])[address] [place] [address] WBC (Bld) [#/Vol] 9.0 x10*3/uL Normal 4.4-11.3 [facility] Comment on above: Performed By: #### 5 7021-8 ####INES CHASE ([id number])[facility] ([facility])[address] [place] [address] Comprehensive metabolic 2000 panelon 08-14-2024 Albumin BCP dye [Mass/Vol] 3.8 g/dL 3.4 - 5.0 g/dL [facility] ALP [Catalytic activity/Vol] 107 U/L 33 - 136 U/L [facility] ALT With P-5'-P [Catalytic activity/Vol] 14 U/L 7 - 45 U/L [facility] Comment on above: Patients treated wit h Sulfasalazine may generate falsely decreased results for ALT. Anion gap [Moles/Vol] 11 mmol/L 10 - 20 mmol/L [facility] AST With P-5'-P [Catalytic activity/Vol] 14 U/L 9 - 39 U/L [facility] Bilirubin [Mass/Vol] 0.5 mg/dL 0.0 - 1 .2 mg/dL [facility] Calcium [Mass/Vol] 8.4 mg/dL Low 8.6 - 10. 3 mg/dL [facility] Chloride [Moles/Vol] 108 mmol/L High 98 - 10 7 mmol/L [facility] CO2 [Moles/Vol] 27 mmol/L 21 - 32 mmol/L [facility] Creatinine [Mass/Vol] 0.84 mg/dL 0.50 - 1.05 mg/dL [facility] GFR/1.73 sq M.predicted among non-blacks MDRD (S/P/Bld) [Vol rate/Area] 76 mL/min/{1.73_m2} - PINF [facility] Comment on above: Calculations of brandyn mated GFR are performed using the 2020 CKD-EPI Study Refit equation without the race variable for the IDMS-Traceable creatinine methods. https://jasn.asnjournals.org/content/early//ASN.3922444 988 Glucose [Mass/Vol] 127 mg/dL High 74 - 99 mg/dL [facility] Interpretation and review of laboratory results Abnormal [facility] Potassium [Moles/Vol] 4.6 mmol/L 3.5 - 5.3 mmol/L [facility] Protein [Mass/Vol] 6.5 g/dL 6.4 - 8.2 g/dL [facility] Sodium [Moles/Vol] 141 mmol/L 136 - 145 mmol/L [facility] Urea nitrogen [Mass/Vol] 11 mg/dL 6 - 23 mg/dL [facility] Albumin BCP dye [Mass/Vol] 3.8 g/dL Normal 3.4-5.0 [facility] Comment on above: Performed By: #### [id number] ####INES CHASE ([id number])[facility] ([facility])[address] [place] [address] ALP [Catalytic activity/Vol] 107 U/L Normal 33-136 [facility] Comment on above: Performed By: #### 2 4323-8 ####INES CHASE ([id number])[facility] ([facility])[address] [place] [address] ALT With P-5'-P [Catalytic activity/Vol] 14 U/L Normal 7-45 [facility] Comment on above: Result Comment: Tasia ents treated with Sulfasalazine may generate falsely decreased results for ALT. Performed By: #### 2 4323-8 ####INES CHASE ([id number])[facility] ([facility])[address] [place] [address] Anion gap [Moles/Vol] 11 mmol/L Normal 10-20 [facility] Comment on above: Performed By: #### 2 432-8 ####INES CHSAE ([id number])[facility] ([facility])[address] [place] [address] AST With P-5'-P [Catalytic activity/Vol] 14 U/L Normal 9-39 [facility] Comment on above: Performed By: #### 2 432-8 ####INES CHASE ([id number])[facility] ([facility])[address] [place] [address] Bilirubin [Mass/Vol] 0.5 mg/dL Normal 0.0-1.2 [facility] Comment on above: Performed By: #### 2 432-8 ####INES CHASE ([id number])[facility] ([facility])[address] [place] [address] Calcium [Mass/Vol] 8.4 mg/dL Low 8.6-10.3 [facility] Comment on above: Performed By: #### 2 432-8 ####INES CHASE ([id number])[facility] ([facility])[address] [place] [address] Chloride [Moles/Vol] 108 mmol/L High 98-107 [facility] Comment on above: Performed By: #### 2 432-8 ####INES CHASE ([id number])[facility] ([facility])[address] [place] [address] CO2 [Moles/Vol] 27 mmol/L Normal 21-32 [facility] Comment on above: Performed By: #### 2 432-8 ####INES CHASE ([id number])[facility] ([facility])[address] [place] [address] Creatinine [Mass/Vol] 0.84 mg/dL Normal 0.50-1.05 [facility] Comment on above: Performed By: #### 2 4323-8 ####INES CHASE ([id number])[facility] ([facility])[address] [place] [address] Glomerular filtration rate/1.73 sq M.predicted 76 mL/min/1.73m*2 Normal >60 [facility] Comment on above: Result Comment: Calc ulations of estimated GFR are performed using the 2020 CKD-EPI Study Refit equation without the race variable for the IDMS-Traceable creatinine methods. https://jasn.asnjournals.org/content/early//ASN.0914265 988 Performed By: #### 2 432-8 ####INES CHASE ([id number])[facility] ([facility])[address] [place] [address] Glucose [Mass/Vol] 127 mg/dL High 74-99 [facility] Comment on above: Performed By: #### 2 432-8 ####INES CHASE ([id number])[facility] ([facility])[address] [place] [address] Potassium [Moles/Vol] 4.6 mmol/L Normal 3.5-5.3 [facility] Comment on above: Performed By: #### 2 432-8 ####INES CHASE ([id number])[facility] ([facility])[address] [place] [address] Protein [Mass/Vol] 6.5 g/dL Normal 6.4-8.2 [facility] Comment on above: Performed By: #### 2 4323-8 ####INES CHASE ([id number])[facility] ([facility])[address] [place] [address] Sodium [Moles/Vol] 141 mmol/L Normal 136-145 [facility] Comment on above: Performed By: #### 2 4323-8 ####INES CHASE ([id number])[facility] ([facility])[address] [place] [address] Urea nitrogen [Mass/Vol] 11 mg/dL Normal 6- [facility] Comment on above: Performed By: #### 2 4323-8 ####INES RENA ([id number])[facility] ([facility])[address] [place] [address] Staphylococcus aureus.methic illin resistant isolateon 08-01-2024 MRSA isol Org specific cx Ql (Nose) Test: Staphylococcus aureus/MRSA colonization, Culture Specimen Source: Nares/Axilla/Groin Specimen Type: Swab Specimen Date: 08/01/2024 1237 Result Date: 08/03/2024818 Result Status: Final result Abnormal: No Resulting Lab: [facility] [address] [place] [address] CULTURE No Staphylococcus aureus isolated Normal [facility] Comment on above: Performed By: #### 5 2969-3 ####ИРИНА Muñoz ([id number])[facility] ([facility])[address] [place] [address] MR SHOULDER RIGHT WO IV CONT [facility] 06-20-2024 MR SHOULDER RIGHT WO IV CONTRAST Interpreted By: Angelo Matthew, Marissa Smith STUDY: MRI of the right shoulder without IV contrast; 06/20/2024 9:54 am INDICATION: Signs/Symptoms:right shoulder pain. ,M25.511 Pain in right shoulder COMPARISON: XR SHOULDER RIGHT 2+ VIEWS 01/02/2024 ACCESSION NUMBER(S): [id number] ORDERING CLINICIAN: DEBRA MEJIA TECHNIQUE: MR imaging of the right shoulder was obtained without IV contrast. FINDINGS: ROTATOR CUFF TENDONS: Moderate tendinosis of the supraspinatus, infraspinatus and subscapular stent with increased intrasubstance signal and thickening. There is a high-grade full thickness, partial width insertional tearing of the posterior 2/3 supraspinatus tendon with some intact anterior fibers. There is retraction of the fibers to the level of acromion undersurface. Small articular sided tearing of the superior subscapularis tendon measuring up to 4 mm in maximum diameter. The infraspinatus and teres minor tendons are intact. There is no edema or fatty atrophy of the rotator cuff musculature. BICEPS TENDON AND ROTATOR INTERVAL: The intra-articular long head biceps tendon is intact and has a normal course. The rotator interval is unremarkable. JOINTS: The acromioclavicular joint is unremarkable. Mild glenohumeral osteoarthrosis with diffuse articular cartilage loss and mild osteophytosis. Small glenohumeral joint effusion. LABRUM: Circumferential degenerative blunting of the labrum. OSSEOUS STRUCTURES: No focal marrow replacing lesions are identified. There is no fracture. Mild cystic changes in the humeral head. SOFT TISSUES: The suprascapular nerve is intact at the suprascapular and spinoglenoid notches. IMPRESSION: 1. High-grade full thickness, partial with tearing of the posterior 2/3 supraspinatus tendon at its insertion with some intact anterior fibers. Small partial-thickness articular sided tearing of the distal superior subscapularis tendon. No muscular atrophy edema. 2. Moderate supraspinatus, infraspinatus and subscapularis tendinosis. 3. Mild glenohumeral osteoarthrosis with diffuse cartilage loss and mild osteophytosis. 4. Small glenohumeral joint effusion. I personally reviewed the images/study and I agree with the findings as stated. This study was interpreted at [place], [place]. MACRO: None Signed by: Angelo Matthew 06/20/2024 11:48 AM Dictation workstation: [id number] Normal [facility] Comment on above: Order Comment: Evalu ate for right rotator cuff tear MR Shoulder - right WO contr annamaria 06-20-2024 1. High-grade full thickness, partial with tearing of the posterior 2/3 supraspinatus tendon at its insertion with some intact anterior fibers. Small partial-thickness articular sided tearing of the distal superior subscapularis tendon. No muscular atrophy edema. 2. Moderate supraspinatus, infraspinatus and subscapularis tendinosis. 3. Mild glenohumeral osteoarthrosis with diffuse cartilage loss and mild osteophytosis. 4. Small glenohumeral joint effusion. I personally reviewed the images/study and I agree with the findings as stated. This study was interpreted at [place], [place]. MACRO: None Signed by: Angelo Matthew 06/20/2024 11:48 AM Dictation workstation: [id number] MMODAL Interpreted By: Angelo Fried and Ebai Jerky STUDY: MRI of the right shoulder without IV contrast; 06/20/2024 9:54 am INDICATION: Signs/Symptoms:right shoulder pain. ,M25.511 Pain in right shoulder COMPARISON: XR SHOULDER RIGHT 2+ VIEWS 01/02/2024 ACCESSION NUMBER(S): [id number] ORDERING CLINICIAN: DEBRA MEJIA TECHNIQUE: MR imaging of the right shoulder was obtained without IV contrast. FINDINGS: ROTATOR CUFF TENDONS: Moderate tendinosis of the supraspinatus, infraspinatus and subscapular stent with increased intrasubstance signal and thickening. There is a high-grade full thickness, partial width insertional tearing of the posterior 2/3 supraspinatus tendon with some intact anterior fibers. There is retraction of the fibers to the level of acromion undersurface. Small articular sided tearing of the superior subscapularis tendon measuring up to 4 mm in maximum diameter. The infraspinatus and teres minor tendons are intact. There is no edema or fatty atrophy of the rotator cuff musculature. BICEPS TENDON AND ROTATOR INTERVAL: The intra-articular long head biceps tendon is intact and has a normal course. The rotator interval is unremarkable. JOINTS: The acromioclavicular joint is unremarkable. Mild glenohumeral osteoarthrosis with diffuse articular cartilage loss and mild osteophytosis. Small glenohumeral joint effusion. LABRUM: Circumferential degenerative blunting of the labrum. OSSEOUS STRUCTURES: No focal marrow replacing lesions are identified. There is no fracture. Mild cystic changes in the humeral head. SOFT TISSUES: The suprascapular nerve is intact at the suprascapular and spinoglenoid notches. MMODAL Angelo Matthew M D - 06/20/2024 Interpreted By: Angelo Matthew and Ebai Jerky STUDY: MRI of the right shoulder without IV contrast; 06/20/2024 9:54 am INDICATION: Signs/Symptoms:right shoulder pain. ,M25.511 Pain in right shoulder COMPARISON: XR SHOULDER RIGHT 2+ VIEWS 01/02/2024 ACCESSION NUMBER(S): [id number] ORDERING CLINICIAN: DEBRA MEJIA TECHNIQUE: MR imaging of the right shoulder was obtained without IV contrast. FINDINGS: ROTATOR CUFF TENDONS: Moderate tendinosis of the supraspinatus, infraspinatus and subscapular stent with increased intrasubstance signal and thickening. There is a high-grade full thickness, partial width insertional tearing of the posterior 2/3 supraspinatus tendon with some intact anterior fibers. There is retraction of the fibers to the level of acromion undersurface. Small articular sided tearing of the superior subscapularis tendon measuring up to 4 mm in maximum diameter. The infraspinatus and teres minor tendons are intact. There is no edema or fatty atrophy of the rotator cuff musculature. BICEPS TENDON AND ROTATOR INTERVAL: The intra-articular long head biceps tendon is intact and has a normal course. The rotator interval is unremarkable. JOINTS: The acromioclavicular joint is unremarkable. Mild glenohumeral osteoarthrosis with diffuse articular cartilage loss and mild osteophytosis. Small glenohumeral joint effusion. LABRUM: Circumferential degenerative blunting of the labrum. OSSEOUS STRUCTURES: No focal marrow replacing lesions are identified. There is no fracture. Mild cystic changes in the humeral head. SOFT TISSUES: The suprascapular nerve is intact at the suprascapular and spinoglenoid notches. IMPRESSION: 1. High-grade full thickness, partial with tearing of the posterior 2/3 supraspinatus tendon at its insertion with some intact anterior fibers. Small partial-thickness articular sided tearing of the distal superior subscapularis tendon. No muscular atrophy edema. 2. Moderate supraspinatus, infraspinatus and subscapularis tendinosis. 3. Mild glenohumeral osteoarthrosis with diffuse cartilage loss and mild osteophytosis. 4. Small glenohumeral joint effusion. I personally reviewed the images/study and I agree with the findings as stated. This study was interpreted at [place], [place]. MACRO: None Signed by: Angelo Matthew 06/20/2024 11:48 AM Dictation workstation: [id number] [facility] Work Phone: Radiology Study observation (narrative) [facility] Work Phone: Shoulder - right ELVIE contr astOrdered By: Angelo Matthew on 06-20-2024 [facility] Work Phone: Discharge Instructionon Discharge Instruction [facility] Medical Records Department [address] [place] [address] Instructions for Home/Discharge Instructions 06/13/24 0807 MR#: [id number] Acct: [id number] Name: KASSANDRA SMITH Rep #: [id number] : 1955 69 From: Jenny Correa MD PCP: BRIGHT ESCOBEDO Status:REG [facility] Discharge Instructions Diet Discharge Diet: No restrictions Activity Discharge Activity: Return to Normal Activity (In 2 days) Additional Activity Instructions:: No strenuous activity, exercise or heavy lifting for 2 days Dressing / Incision Call your doctor if your incision/area has: Continuous Slow Oozing, Sudden Increased Bleeding and Foul Smelling Discharge Call your doctor if you observe: Fever of 101 or Higher, Inability to urinate and Inability to have a bowel movement Follow Up Care Please Follow Up With: Jenny Correa MD When: The office will call her to make a follow-up arrangement for in 1 to 2 weeks. Test Results: Test results from this visit will be discussed in further detail at your follow-up appointment, if applicable. Discharge Plan Admission Attending Provider: Jenny Correa Primary Care Provider: BRIGHT ESCOBEDO Instructions Print Language: Mexican Discharge Orders/Prescriptions Prescriptions: New cephalexin 500 mg capsule 500 mg PO Q12 3 Days Qty: 6 0RF Continued atorvastatin 80 mg tablet 80 mg PO DAILY citalopram 40 mg tablet 40 mg PO DAILY albuterol sulfate 90 mcg/actuation HFA aerosol inhaler 2 puff INHALATION Q4H PRN PRN (Reason: wheezing) bupropion HCl 150 mg tablet extended release 24 hr 150 mg PO DAILY budesonide-formoterol 160-4.5 mcg/actuation HFA aerosol inhaler 2 puff INHALATION BID gabapentin 300 mg capsule 300 mg PO DAILY aspirin [Ban Chewable Aspirin] 81 mg tablet,chewable 1 tab PO DAILY Referrals / Follow Up: BRIGHT ESCOBEDO [Other] Disposition Disposition (needs filled in before D/C Order can be placed): Home, Self Care 06/13/24 1335 Jenny Correa MD CC: BRIGHT ESCOBEDO Signed [facility] MR/POSTOP.ANEon 06-13-2024 MR/POSTOP.ANE [facility] Medical Records Department [address] [place] [address] Anesthesia Postop Eval I 06/13/24 0957 MR#: [id number] Acct: [id number] Name: KASSANDRA SMITH Rep #: [id number] : 1955 69 From: Eran Acosta CRNA PCP: BRIGHT ESCOBEDO Status:REG [facility] Y Race: C Location: [place] [address] Anesthesia: Postop Eval I Current Vital Signs Temperature: 98.1 F Pulse Rate: 74 Blood Pressure: 103/56 Respiratory Rate: 16 Pulse Ox: 74 Oxygen Delivery Method: Simple Mask Oxygen Flow Rate (L/min): 8 Assessment Airway patent: Yes Spontaneous unlabored respirations: Yes Mental status: Awake and Calm nausea: No Vomiting: No Anesthesia Complication: No Fluid Hydration Crystalloid volume administer (ml): 600 Total IV fluid infused: 600 Progress Note Anesthesia document: Postop Eval 1 completed: Yes 06/13/24957 Date Eran Acosta WOUND/OSTOMY CLINICAL NURSE SPECIALIST Cosigner Signature: Date CC: Signed [facility] MR/[id number] 06-13-2024 MR/POSTOPAN2 [facility] Medical Records Department [address] [place] [address] Anesthesia Postop Eval II 06/13/24 1507 MR#: [id number] Acct: [id number] Name: KASSANDRA SMITH Rep #: [id number] : 1955 69 From: Iggy Gibbs MD PCP: BRIGHT ESCOBEDO Status:DEP [facility] Y Race: C Location: [facility] ADDENDUM by Dr. Iggy Gibbs MD on 06/13/24 at 1515 Addendum Desaturation of unclear etiology. Sudden improvement at 3 hours also of unclear etiology. 06/13/24 1515 Date Iggy Gibbs MD cc: * Signed Anesthesia Postop Eval I Sum Postop Eval Completion status Anesthesia document: Postop Eval 1 completed: Yes Anesthesia Postop Eval I Summary Anesthesia Postop Eval I Summary: Anesthesia Postop Eval I: Assessment Summary Airway patent Yes 06/13/24 09:58 WOUND/OSTOMY CLINICAL NURSE SPECIALIST.SOBR Spontaneous unlabored Yes 06/13/24 09:58 WOUND/OSTOMY CLINICAL NURSE SPECIALIST.SOBR respirations Mental status Awake,Calm 06/13/24 09:58 WOUND/OSTOMY CLINICAL NURSE SPECIALIST.SOBR nausea No 06/13/24 09:58 WOUND/OSTOMY CLINICAL NURSE SPECIALIST.SOBR Vomiting No 06/13/24 09:58 WOUND/OSTOMY CLINICAL NURSE SPECIALIST.SOBR Anesthesia Postop Eval I: Fluid Summary Crystalloid volume administer 600 06/13/24 09:58 WOUND/OSTOMY CLINICAL NURSE SPECIALIST.SOBR (ml) Colloids volume administered ( ml) Blood Product volume administered (ml) Total IV fluid infused 600 06/13/24 09:58 WOUND/OSTOMY CLINICAL NURSE SPECIALIST.SOBR Anesthesia Postop Eval I: Summary Notes Anesthesia Complication No 06/13/24 09:58 WOUND/OSTOMY CLINICAL NURSE SPECIALIST.SOBR Anesthesia Complication Comment: Post-operative progress note Anesthesia: Postop Eval II Evaluation Mental status: Awake and Calm Pain Level: 0 nausea: No Vomiting: No Progress Note Post-operative progress note: Patient took a prolonged amount of time in PACU to get off of her nasal cannula oxygen. She was not short of breath. She was not overly sedated. Every trial of room air the patient would drop into the mid to low 80s. We had the patient regularly using an inspiratory spirometer and gave her a DuoNeb breathing treatment. She was otherwise asymptomatic and her vital signs were stable. Eventually at almost 3 hours the patient did manage to keep her sats above 90% and the patient was discharged from PACU. She is instructed to continue to use her inspiratory spirometer for the next day. Complications Anesthesia Complication: Yes Anesthesia Complication Comment:: Prolonged stay in PACU secondary to desaturation on room air with no clear-cut etiology. Patient was only on MAC sedation anesthetic. She was then awake and alert the entire PACU stay. Sedation does not seem to explain the poor saturations. 06/13/24 1513 Date Iggy Gbibs MD Cosigner Signature: Date CC: Signed Normal [facility] Operative Reporton 5 Operative Report [facility] Medical Records Department [address] [place] [address] Operative Report 06/13/24 1014 MR#: [id number] Acct: [id number] Name: KASSANDRA SMITH Rep #: [id number] : 1955 69 From: Jenny Correa MD PCP: BRIGHT ESCOBEDO Status:[facility] Location: [place] [address] Operative Report (Standard) Operative Information Date of Procedure: 06/13/24 Pre-Operative Diagnosis: Stress urinary incontinence, intrinsic sphincter deficiency Post-Operative Diagnosis: Same Surgery/Procedure Performed: Cystoscopy with Bulkamid injection building cleaner: No Type of Anesthesia: MAC RN Documented Start/Stop Times: Operation Date: 06/13/24 09:20 Case Time Into Pre-Op 06/13/24 07:56 Anesthesia Start 06/13/24 09:26 Into Room 06/13/24 09:26 Out of Pre-Op 06/13/24 09:26 Procedure End 06/13/24 09:45 Anesthesia End 06/13/24 09:51 Out of Room 06/13/24 09:51 Into Recovery 06/13/24 09:55 Procedure Start Time: 09:40 Procedure Stop Time: 09:45 Select all DRAINS/GRAFTS/IMPLANTS that apply: Implanted device Implanted device details: Bulkamid Estimated Blood Loss: <5cc Specimen collected: No Description of surgery: The patient is a 69-year-old female with 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 Informed consent was obtained. She was taken to the operating room and placed on the operating room table. Anesthesia monitored the head, neck, airway, IV access and vital signs throughout the case. Once anesthesia was readily ministered she was placed into dorsolithotomy position and was prepped and draped in usual sterile fashion. Using the Bulkamid scope, the urethra was intubated and the end of the scope was placed at the bladder neck. The needle was inserted into the bladder lumen to the 2 cm kiara and the whole apparatus was brought back 2 cm. The needle with the bevel in the medial position was inserted superficially into the urethra at the 7 o'clock position where one half of a syringe was injected and a pillow was formed. This process was then repeated at the 5 o'clock position, 1 o'clock position and 11:00 positions. The tissue appeared to be coapted. The cystoscope was removed. The patient was awakened and taken to the recovery room in good condition. There were no complications during the procedure. Surgical Findings: Wide open urethra consistent with ISD. Complications Complications: No Admit VTE Documentation VTE Present on Admission: Yes VTE Mechan Device Prophylaxis: SCD's VTE Pharm Prophylaxis ordered?: No Reason prophylaxis not ordered: Treatment Not Indicated 06/13/24 1018 Cosigner Signature (if applicable): CC: Dr. Jenny Correa MD; BRIGHT ESCOBEDO Signed Normal [facility] BI MAMMO BILATERAL SCREENING TOMOSYNTHESISon 06-05-2024 BI MAMMO BILATERAL SCREENING TOMOSYNTHESIS Interpreted By: Jon Méndez, STUDY: BI MAMMO BILATERAL SCREENING TOMOSYNTHESIS; 06/05/2024 9:39 am ACCESSION NUMBER(S): [id number] ORDERING CLINICIAN: BRIGHT ESCOBEDO INDICATION: Screening. COMPARISON: 11/14/2022 FINDINGS: 2D and tomosynthesis images were reviewed at 1 mm slice thickness. Density: There are scattered areas of fibroglandular density. Bilateral circumscribed masses, the largest lobulated measuring approximately 1.6 cm at the upper outer aspect of the right breast at the posterior depth are stable and considered benign. Otherwise no suspicious masses or calcifications are identified. There has not been significant interval change from the previous examination. IMPRESSION: No mammographic evidence of malignancy. BI-RADS CATEGORY: BI-RADS Category: 2 Benign. Recommendation: Annual Screening. Recommended Date: 1 Year. Laterality: Bilateral. For any future breast imaging appointments, please call [phone] MACRO: None Signed by: Jon Méndez 06/05/2024 2:54 PM Dictation workstation: [id number] [facility] DBT Breast - bilateralon No mammographic evid ence of malignancy. BI-RADS CATEGORY: BI-RADS Category: 2 Benign. Recommendation: Annual Screening. Recommended Date: 1 Year. Laterality: Bilateral. For any future breast imaging appointments, please call [phone] ([phone]). MACRO: None Signed by: Jon Méndez 06/05/2024 2:54 PM Dictation workstation: [id number] MMODAL Interpreted By: Jon Turner, STUDY: BI MAMMO BILATERAL SCREENING TOMOSYNTHESIS; 06/05/2024 9:39 am ACCESSION NUMBER(S): [id number] ORDERING CLINICIAN: BRIGHT ESCOBEDO INDICATION: Screening. COMPARISON: 11/14/2022 FINDINGS: 2D and tomosynthesis images were reviewed at 1 mm slice thickness. Density: There are scattered areas of fibroglandular density. Bilateral circumscribed masses, the largest lobulated measuring approximately 1.6 cm at the upper outer aspect of the right breast at the posterior depth are stable and considered benign. Otherwise no suspicious masses or calcifications are identified. There has not been significant interval change from the previous examination. MMODAL Jon Méndez MD - 06/05/2024 Interpreted By: Jon Méndez, STUDY: BI MAMMO BILATERAL SCREENING TOMOSYNTHESIS; 06/05/2024 9:39 am ACCESSION NUMBER(S): [id number] ORDERING CLINICIAN: BRIGHT ESCOBEDO INDICATION: Screening. COMPARISON: 11/14/2022 FINDINGS: 2D and tomosynthesis images were reviewed at 1 mm slice thickness. Density: There are scattered areas of fibroglandular density. Bilateral circumscribed masses, the largest lobulated measuring approximately 1.6 cm at the upper outer aspect of the right breast at the posterior depth are stable and considered benign. Otherwise no suspicious masses or calcifications are identified. There has not been significant interval change from the previous examination. IMPRESSION: No mammographic evidence of malignancy. BI-RADS CATEGORY: BI-RADS Category: 2 Benign. Recommendation: Annual Screening. Recommended Date: 1 Year. Laterality: Bilateral. For any future breast imaging appointments, please call [phone]). MACRO: None Signed by: Jon Méndez 06/05/2024 2:54 PM Dictation workstation: [id number] [facility] Work Phone: Radiology Study observation (narrative) [facility] Work Phone: DBT Breast - bilateralOrdere d By: Jon Méndez on 06-05-2024 [facility] Work Phone: BASIC METABOLIC PANEL WITH A NION GAPon 06-01-2024 BUN/CREATININE RATIO Normal [facility] Comment on above: Performed By: #### 1 146, 77984 #### [facility] [place] [address], [address] [place] [address] Interior Paneler: Trey Ernst MD CALCIUM Normal [facility] Comment on above: Performed By: #### 1 970, 35690 #### [facility] [place] [address] [place] [address] Interior Paneler: Trey Ernst MD CARBON DIOXIDE Normal [facility] Comment on above: Performed By: #### 1 534, 24698 #### [facility] [place] [address] , [address] [place] [address] Interior Paneler: Trey Ernst MD CHLORIDE Normal [facility] Comment on above: Performed By: #### 1 633, 91029 #### [facility] [place] [address] [place] [address] Interior Paneler: Trey Ernst MD CREATININE Normal [facility] Comment on above: Performed By: #### 1 947, 38377 #### [facility] [place] [address] , [address] [place] [address] Interior Paneler: Trey Ernst MD EGFR Normal [facility] Comment on above: Performed By: #### 1 099, 35215 #### [facility] [place] [address] Interior Paneler: Trey Ernts MD ELECTROLYTE BALANCE Normal [facility] Comment on above: Performed By: #### 1 759, 75128 #### [facility] [place] [address] Interior Paneler: Trey Ernst MD GLUCOSE Normal [facility] Comment on above: Performed By: #### 1 429, 39531 #### [facility] [place] [address] Interior Paneler: Trey Ernst MD POTASSIUM Normal [facility] Comment on above: Performed By: #### 1 339, 59982 #### [facility] [place] [address] Interior Paneler: Trey Ernst MD SODIUM Normal [facility] Comment on above: Performed By: #### 1 769, 94501 #### [facility] [place] [address] Interior Paneler: Trey Ernst MD UREA NITROGEN (BUN) Normal [facility] Comment on above: Performed By: #### 1 359, 45813 #### [facility] [place] [address] Interior Paneler: Trey Ernst MD CBC (H/H, RBC, INDICES, WBC, PLT)on 06-01-2024 Erythrocyte distribution width (RBC) [Ratio] 11.5 % Normal 11.0-15.0 [facility] Comment on above: Performed By: #### 1 539, 51749 #### [facility] [place] [address] Interior Paneler: Trey Ernst MD Hematocrit (Bld) [Volume fraction] 48.9 % High 35.0-45.0 [facility] Comment on above: Performed By: #### 1 578, 19866 #### [facility] [place] [address] Interior Paneler: Trey Ernst MD Hemoglobin (Bld) [Mass/Vol] 16.3 g/dL High 11.7-15.5 [facility] Comment on above: Performed By: #### 1 039, 35476 #### [facility] [place] [address] Interior Paneler: Trey Ernst MD MCH (RBC) [Entitic mass] 33.8 pg High 27.0-33.0 [facility] Comment on above: Performed By: #### 1 749, 82441 #### [facility] [place] [address] Interior Paneler: Trey Ernst MD MCHC (RBC) [Mass/Vol] 33.3 g/dL Normal 32.0-36.0 [facility] Comment on above: Result Comment: For adults, a slight decrease in the calculated MCHC value (in the range of 30 to 32 g/dL) is most likely not clinically significant; however, it should be interpreted with caution in correlation with other red cell parameters and the patient's clinical condition. Performed By: #### 1 833, 85924 #### [facility] [place] [address] Interior Paneler: Trey Ernst MD MCV (RBC) [Entitic vol] 101.5 fL High 80.0-100.0 [facility] Comment on above: Performed By: #### 1 392, 60292 #### [facility] [place] [address] Interior Paneler: Trey Ernst MD Platelet mean volume (Bld) [Entitic vol] 10.4 fL Normal 7.5-12.5 [facility] Comment on above: Performed By: #### 1 779, 25648 #### [facility] [address] [place] [address] Interior Paneler: Trey Ernst MD Platelets (Bld) [#/Vol] 289 10*3/uL Normal 140-400 [facility] Comment on above: Performed By: #### 1 759, 61694 #### [facility] [place] [address], [address] [place] [address] Interior Paneler: Trey Ernst MD RBC (Bld) [#/Vol] 4.82 10*6/uL Normal 3.80-5.10 [facility] Comment on above: Performed By: #### 1 759, 71832 #### [facility] [place] [address] , [address] [place] [address] Interior Paneler: Trey Ernst MD WBC (Bld) [#/Vol] 8.9 10*3/uL Normal 3.8-10.8 [facility] Comment on above: Performed By: #### 1 759, 63609 #### [facility] [address] , [address] [place] [address] Interior Paneler: Trey Ernst MD CNOVon 05-15-2024 CNOV Office Visit (PMINLL ) -- LUISKASSANDRA Meade Sylvain ([id number]) 1955 F Date Time Provider Department 05/15/24 11:00 AM IVAN TALAVERA PMINLL During your visit today, we recorded the following information about you: Pulse Respiration Blood pressure 79/minute 14/minute 128/65 Ivan Talavera PA-C 05/15/2024 1:25 PM Signed . Pulmonary Clinic Follow-up Note Patient Name: Kassandra Smith PRIMARY CARE PHYSICIAN: Marcela Buchanan MD Date of visit: May 15, 2024 COMMUNICATION WILL BE SENT VIA SHARED MEDICAL RECORDS OR US MAIL. Subjective: Kassandra Smith is a 69 year old year old female who presents for follow-up of hypersensitivity pneumonitis, last seen in the office by me 02/12/24. At that time, was doing very well from a pulmonary standpoint. Decreased advair from 2 puffs twice daily to 1 puff twice daily. No worsening symptoms. Denied cough Since seeing us last, stopped using the advair. States can't afford it, states $140/month. Her insurance changed at the beginning of the year. Hasn't used it in about 3-4 months. Can tell worsening SOB. Still not really having cough. MEDICATIONS: ADVAIR HFA 230-21 mcg/actuation inhaler INHALE 2 PUFFS BY MOUTH TWICE DAILY DIRECTED buPROPion SR (WELLBUTRIN SR) 150 mg 12 hr tablet Take 150 mg by mouth once daily. tacrolimus (PROTOPIC) 0.1 % ointment APPLY TO AFFECTED TWICE DAILY X 14 DAYS, STOP FOR 1 WEEK AND RESUME IF NEEDED atorvastatin (LIPITOR) 80 mg tablet Take 1 tablet by mouth daily at bedtime. albuterol HFA (PROVENTIL HFA, VENTOLIN HFA) 90 mcg/actuation inhaler Inhale 1 Puff as instructed every 4 hours as needed for wheezing/shortness of breath. 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 albuterol (PROVENTIL) 2.5 mg /3 mL (0.083 %) nebulizer solution Use 3 mL via nebulizer every 4 hours as needed for wheezing/shortness of breath. citalopram (CELEXA) 40 mg tablet Take 40 mg by mouth once daily. calcium carbonate (CALTRATE) 600 mg calcium (1,500 mg) tab Take 1,200 mg by mouth once daily. Vit A,C and H-Frqmem-Xjxudgpa (OCUVITE) 300 mcg-200 mg-27 mg-2 mg tab Take 1 tablet by mouth once daily. aspirin, enteric coated (ASPIRIN, ENTERIC COATED) 81 mg EC tablet Take 81 mg by mouth once daily. budesonide-formoterol (SYMBICORT) 160-4.5 mcg/actuation inhaler Inhale 2 Puffs as instructed two times a day. fluticasone furoate-vilanterol (BREO ELLIPTA) 50-25 mcg/dose inhaler Inhale 1 Inhalation as instructed once daily. tolterodine ER (DETROL LA) 2 mg 24 hr capsule Take 2 mg by mouth. tolterodine (DETROL) 2 mg tablet Take 2 mg by mouth once daily. albuterol HFA (PROVENTIL HFA, VENTOLIN HFA) 90 mcg/actuation inhaler Inhale 2 Puffs as instructed every 4 hours as needed for wheezing/shortness of breath. fluticasone-salmeterol (ADVAIR DISKUS) 500-50 mcg/dose dsdv Inhale 1 Puff as instructed two times a day. pantoprazole DR (PROTONIX) 40 mg tablet Take 1 tablet by mouth daily at 6 am. oxybutynin (DITROPAN) 5 mg tablet Take 5 mg by mouth twice daily. Allergies: Patient has no known allergies. ROS: Pertinent positives and negatives are listed in the HPI, all other systems were reviewed and found to be negative. PHYSICAL EXAM: BP 128/65 (BP Site: Left Arm, BP Position: Sitting, BP Cuff Size: Regular Adult) Pulse 79 Resp 14 SpO2 91% General- nad, comfortable Eyes- eomi ENT- mmm, oropharynx clear, CV- RRR Resp- clear to auscultation bilaterally, no wheezes or crackles, breathing nonlabored Ext- no clubbing, cyanosis, or edema Neuro- normal gait, no focal deficits Psych- appropriate mood and affect Labs / Imaging / Diagnostic Studies: Reviewed spirometry from today. No obstruction. Fev1 66% , down from 72% from 6 months ago DLCO normal 73%, down from 81% 6 months ago Assessment: Hypersensitivity pneumonitis-confirmed on bronchoscopy 02/2023. Was on systemic steroids for several months and weaned off altogether in July 2023. Symptoms remain stable off prednisone. She no longer works at the [employer]. Stopped advair 3-4 months ago due to insurance barriers. [place] and DLCO slightly down today with some increased SOB. Cough is still absent Possible component of diastolic heart failure with slightly elevated left ventricular filling pressures -was on low dose lasix, has not noticed a big difference since stopping Smoking history, 9 pack years, quit at age 31 Hyperlipidemia 15 pet birds for 3 years Physical deconditioning Plan: Will send in new ICS/LABA. She was given list of inhalers to ask insurance which are covered in case symbicort is not covered Follow up in 3 months with repeat meghan and DLCO I spent a total of 28 minutes on the date of the service which included preparing to see the patient, clsh-ti-tzum patie (more content not included)... [facility] CNPN Telephone (PMNA11) -- KASSANDRA SMITH ([id number]) 1955 F Date Time Provider Department 05/15/24 MARÍA LINDA PMNA11 During your visit today, we recorded the following information about you: María Linda HUC 05/15/2024 12:36 PM Signed Ivan Talavera PA-C 05/15/2024 12:57 PM Signed Please let her know I changed advair to breo per her insurance request Ivan Talavera PA-C 05/15/2024 12:57 PM Signed Addended by: IVAN TALAVERA on: 05/15/2024 12:57 PM Modules accepted: Orders Ivan Talavera PA-C 05/15/2024 1:15 PM Signed Disregard. Addressed in previous encounter Allergies As of Date: 05/15/2024 (No Known Allergies) Date Reviewed: 02/12/2024 Reviewed by: Ivan Talavera PA-C - Fully Assessed Reason for Visit: Med Change Request [[id number]] Primary Visit Diagnosis:Uncomplicated asthma, unspecified asthma severity, unspecified whether persistent ([facility]) [J45.909] Order(s):fluticasone furoate-vilanterol (BREO ELLIPTA) 50-25 mcg/dose inhalerInhale 1 Inhalation as instructed once daily.Disp: 60 EachRfl: 5 Prescriptions as of 05/15/2024 - budesonide-formoterol (SYMBICORT) 160-4.5 mcg/actuation inhaler Inhale 2 Puffs as instructed two times a day. - fluticasone furoate-vilanterol (BREO ELLIPTA) 50-25 mcg/dose inhaler Inhale 1 Inhalation as instructed once daily. - tolterodine ER (DETROL LA) 2 mg 24 hr capsule Take 2 mg by mouth. - ADVAIR HFA 230-21 mcg/actuation inhaler INHALE 2 PUFFS BY MOUTH TWICE DAILY DIRECTED - tolterodine (DETROL) 2 mg tablet Take 2 mg by mouth once daily. - buPROPion SR (WELLBUTRIN SR) 150 mg 12 hr tablet Take 150 mg by mouth once daily. - albuterol HFA (PROVENTIL HFA, VENTOLIN HFA) 90 mcg/actuation inhaler Inhale 2 Puffs as instructed every 4 hours as needed for wheezing/shortness of breath. - fluticasone-salmeterol (ADVAIR DISKUS) 500-50 mcg/dose dsdv Inhale 1 Puff as instructed two times a day. - pantoprazole DR (PROTONIX) 40 mg tablet Take 1 tablet by mouth daily at 6 am. - tacrolimus (PROTOPIC) 0.1 % ointment APPLY TO AFFECTED TWICE DAILY X 14 DAYS, STOP FOR 1 WEEK AND RESUME IF NEEDED - atorvastatin (LIPITOR) 80 mg tablet Take 1 tablet by mouth daily at bedtime. - albuterol HFA (PROVENTIL HFA, VENTOLIN HFA) 90 mcg/actuation inhaler Inhale 1 Puff as instructed every 4 hours as needed for wheezing/shortness of breath. Inhale 1 to 2 puffs every 4 to 6 hours as needed - Miscellaneous Medical Supply Dispense one nebulizer compressor with lifetime supplies. - albuterol (PROVENTIL) 2.5 mg /3 mL (0.083 %) nebulizer solution Use 3 mL via nebulizer every 4 hours as needed for wheezing/shortness of breath. - citalopram (CELEXA) 40 mg tablet Take 40 mg by mouth once daily. - oxybutynin (DITROPAN) 5 mg tablet Take 5 mg by mouth twice daily. - calcium carbonate (CALTRATE) 600 mg calcium (1,500 mg) tab Take 1,200 mg by mouth once daily. - Vit A,C and F-Gjipnc-Nopreinc (OCUVITE) 300 mcg-200 mg-27 mg-2 mg tab Take 1 tablet by mouth once daily. - aspirin, enteric coated (ASPIRIN, ENTERIC COATED) 81 mg EC tablet Take 81 mg by mouth once daily. Problem List As Of Date 05/15/2024 Noted Resolved Hypoxia [R09.02] 05/26/2021 Hypersensitivity pneumonia (HCC) [J67.9] 03/14/2023 Interstitial lung disease (HCC) [J84.9] 03/14/2023 Need for pneumocystis prophylaxis [Z29.89] 03/15/2023 Acute hypoxemic respiratory failure (HCC) [J96.*03/15/2023 Prescriptions ordered this encounter Disp Refills Start End BREO ELLIPTA 50 MCG-25 MCG/DOSE POWD* 60 E* 5 05/15/2024 06/14/2024 Route: INHALATION Sig: Inhale 1 Inhalation as instructed once daily. Encounter Status:Closed by MARÍA LINDA on 05/15/24 Normal [facility] LUNG DIFFUSION CAPACITY (MARCO O)on 05-15-2024 DLCO (ml/min/mmHg) 16.12 ml/min/mmHg [facility] DLCO LLN (ml/min/mmHg) 15.89 ml/min/mmHg [facility] DLCO PREDICTED (ml/min/mmHg) 22.06 ml/min/mmHg [facility] DLCO ULN (ml/min/mmHg) 28.23 ml/min/mmHg [facility] DLCO/VA (ml/min/mmHg/L) 0.04 ml/min/mmHg/ L [facility] DLCO/VA PREDICTED (ml/min/mmHg/L) 0.04 ml/min/mmHg/ L [facility] DLCO/VAcor (ml/min/mmHg/L) 0.04 ml/min/mmHg/ L [facility] DLCOcor (ml/min/mmHg) 15.93 ml/min/mmHg [facility] DLCOcor PREDICTED (ml/min/mmHg) 22.06 ml/min/mmHg [facility] ERV PREDICTED (L) 1.06 L/S [facility] FEF25% PRE (L/S) 3.87 L/S [facility] YDT54-62% LLN (L/S) 0.98 L/S [facility] INV40-59% PRE (L/S) 0.74 L/S [facility] SVC57-70% PREDICTED (L/S) 2.08 L/S [facility] FEF75% LLN (L/S) 0.2 L/S [facility] FEF75% PRE (L/S0 0.23 L/S [facility] FEF75% PREDICTED (L/S) 0.54 L/S [facility] FEF75% ULN (L/S) 1.39 L/S [facility] FET PRE (S) 8.84 S [facility] FEV1 LLN (L) 1.73 L [facility] FEV1 PRE (L) 1.55 L [facility] FEV1 PREDICTED (L) 2.46 L [facility] FEV1 ULN (L) 3.16 L [facility] FEV1/FVC LLN (%) 66 % [facility] FEV1/FVC PRE (%) 66 % [facility] FEV1/FVC PREDICTED (%) 78 % [facility] FVC LLN (L) 2.27 L [facility] FVC PRE (L) 2.34 L [facility] FVC PREDICTED (L) 3.19 L [facility] FVC ULN (L) 4.13 L [facility] IC PREDICTED (L) 2.12 L/S [facility] PEF LLN (L/S) 4.41 L/S [facility] PEF PRE (L/S) 5.92 L/S [facility] PEF ULN (L/S) 8.19 L/S [facility] SVC LLN (L) 2.27 L/S [facility] SVC PREDICTED (L) 3.19 L/S [facility] SVC ULN (L) 4.13 L/S [facility] VA (L) 4.15 L [facility] VA PREDICTED (L) 5.6 L [facility] No Panel Informationon 05-[address] [place] [address] Test Date: 2024-05-15 Pat Name: KASSANDRA SMITH Department: Room: 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 Start of test and EOFE criteria met. Current ATS/ERS acceptability and repeatability standards for DLCO met with 2 acceptable maneuvers. Last patient height taken 04/21/2023/NK IMPRESSION: Spirometry is normal except for an isolated reduction in fev1 without a corresponding reduction in fev1/fvc ratio. The diffusion capacity (uncorrected for hemoglobin) is normal. Electronically Signed On 05-15-2024 12:38:45 EDT by Radha Ruiz MD ID: [id number] Name: KASSANDRA SMITH Race: White Ht: 67.28 in Wt: 187.17 lbs Age: 69 Gender: Female : 1955 Dx: Hypersensitivity pneumonitis_ Smoking Hx: Ex-smoker Doctor: KAYODE MCKEON Test Date: 05/15/2024 Site: [place] Tech: Karoline Brown PRE-BRONCH POST-BRONCH Veena LLN Pred ULN %Pred ZScore Veena %Pred %Chg ZScore SPIROMETRY FVC 2.34 2.27 3.19 4.13 73 -1.52 FEV1 1.55 1.73 2.46 3.16 62 -2.02 FEV1/FVC 0.66 0.66 0.78 0.88 84 -1.57 FEFMax 5.92 4.41 6.30 8.19 93 -0.34 FEF50 1.13 1.81 3.41 5.02 33 -2.33 FIF50 3.46 FEF50/FIF50 0.33 90-100 FIVC 2.26 XGX23-29 0.74 0.98 2.08 3.63 35 -2.14 ExpiredTime 8.84 TimeToFEFMax 0.06 JOSÉ 0.05 VolExtrap% 2 LUNG DIFFUSION DLCOunc 16.12 15.89 22.06 28.23 73 -1.58 DLCOStdPB 15.93 15.89 22.06 28.23 72 -1.64 VA 4.15 4.50 5.60 6.70 74 -2.17 Kco 3.84 3.08 4.03 5.10 95 -0.30 Comments: Current ATS/ERS acceptability and repeatability standards for spirometry met. Start of test and EOFE criteria met. Current ATS/ERS acceptability and repeatability standards for DLCO met with 2 acceptable maneuvers. Last patient height taken 04/21/2023/NK PULMONARY FUNCTION LAB [facility] CNOVon 02-12-2024 CNOV Office Visit (PMINLL ) -- KASSANDRA SMITH ([id number]) 1955 F Date Time Provider Department 02/12/24 10:20 AM IVAN TALAVERA During your visit today, we recorded the following information about you: Pulse Blood pressure Weight Height 79/minute 112/68 89.8 kg 1.702 m Ivan Talavera PA-C 02/12/2024 10:50 AM Signed . Pulmonary Clinic Follow-up Note Patient Name: Kassandra Smith PRIMARY CARE PHYSICIAN: Marcela Buchanan MD Date of visit: February 12, 2024 COMMUNICATION WILL BE SENT VIA SHARED MEDICAL RECORDS OR US MAIL. Subjective: Kassandra Smith is a 68 year old year old female who presents for follow-up of hypoxia after R anterior rib fractures, last seen in the office 01/08/24 At that time, was being seen after hospitalization. Was wearing 4L of oxygen at that time. Plan was to repeat ambulatory oximetry in a few weeks or so Since seeing us last, doing really well from a pulmonary standpoint. Pain from rib fractures improved. Sob has improved. Hasn't been using oxygen for a couple weeks with no worsening symptoms. Has even decreased advair from 2 puffs twice daily to 1 puff twice daily. Now rosenigns ymptoms with this. Not really having cough either. MEDICATIONS: tolterodine ER (DETROL LA) 2 mg 24 hr capsule Take 2 mg by mouth. ADVAIR HFA 230-21 mcg/actuation inhaler INHALE 2 PUFFS BY MOUTH TWICE DAILY DIRECTED tolterodine (DETROL) 2 mg tablet Take 2 mg by mouth once daily. buPROPion SR (WELLBUTRIN SR) 150 mg 12 hr tablet Take 150 mg by mouth once daily. albuterol HFA (PROVENTIL HFA, VENTOLIN HFA) 90 mcg/actuation inhaler Inhale 2 Puffs as instructed every 4 hours as needed for wheezing/shortness of breath. fluticasone-salmeterol (ADVAIR DISKUS) 500-50 mcg/dose dsdv Inhale 1 Puff as instructed two times a day. pantoprazole DR (PROTONIX) 40 mg tablet Take 1 tablet by mouth daily at 6 am. tacrolimus (PROTOPIC) 0.1 % ointment APPLY TO AFFECTED TWICE DAILY X 14 DAYS, STOP FOR 1 WEEK AND RESUME IF NEEDED atorvastatin (LIPITOR) 80 mg tablet Take 1 tablet by mouth daily at bedtime. albuterol HFA (PROVENTIL HFA, VENTOLIN HFA) 90 mcg/actuation inhaler Inhale 1 Puff as instructed every 4 hours as needed for wheezing/shortness of breath. 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 albuterol (PROVENTIL) 2.5 mg /3 mL (0.083 %) nebulizer solution Use 3 mL via nebulizer every 4 hours as needed for wheezing/shortness of breath. citalopram (CELEXA) 40 mg tablet Take 40 mg by mouth once daily. oxybutynin (DITROPAN) 5 mg tablet Take 5 mg by mouth twice daily. calcium carbonate (CALTRATE) 600 mg calcium (1,500 mg) tab Take 1,200 mg by mouth once daily. Vit A,C and M-Obkrlu-Xtrolyle (OCUVITE) 300 mcg-200 mg-27 mg-2 mg tab Take 1 tablet by mouth once daily. aspirin, enteric coated (ASPIRIN, ENTERIC COATED) 81 mg EC tablet Take 81 mg by mouth once daily. Allergies: Patient has no known allergies. ROS: Pertinent positives and negatives are listed in the HPI, all other systems were reviewed and found to be negative. PHYSICAL EXAM: BP 112/68 (BP Site: Right Arm, BP Position: Sitting, BP Cuff Size: Regular Adult) Pulse 79 Ht 170.2 cm (5' 7) Wt 89.8 kg (198 lb) SpO2 94% BMI 31.01 kg/m? General- nad, comfortable Eyes- eomi ENT- mmm, oropharynx clear, CV- RRR Resp- crackles at bases Neuro- normal gait, no focal deficits Psych- appropriate mood and affect Labs / Imaging / Diagnostic Studies: Oximetry with Ambulation Test for This Encounter O2 Device O2 Adapter NC O2 Flow SpO2% HR Activity Ft Walked (ft) Time (min) Avg Speed (MPH) R/A 94 88 Resting R/A 93 100 Walking, usual pace 500 3 1.89 R/A 96 86 Resting R/A 91 107 Walking, fastest pace 635 Assessment: R anterior rib fractures- 5th and 6th ribs- after a fall on 12/30/23 Hypoxia- was requiring 4 L oxygen in the hospital- back to baseline now Hypersensitivity pneumonitis-confirmed on bronchoscopy 02/2023. Was on systemic steroids for several months and weaned off altogether in July 2023. Symptoms remain stable off prednisone. She no longer works at the [employer]. Possible component of diastolic heart failure with slightly elevated left ventricular filling pressures -was on low dose lasix, has not noticed a big difference since stopping Smoking history, 9 pack years, quit at age 31 Hyperlipidemia 15 pet birds for 3 years Physical deconditioning Plan: Will fax oxygen discontinuation order to her oxygen supply company She will keep appointment in April as scheduled with Dr. Mckeon with meghan and DLCO Ivan Talavera PA-C February 12, 2024 10:49 AM Referring Provider: IVAN TALAVERA [[id number]] Allergies As of Date: 02/12/2024 (No Known Allergies) Date Reviewed: 02/11 (more content not included)... [facility] (PMINLL[facility] -- KASSANDRA SMITH ([id number]) 1955 F Date Time Provider Department 02/12/24 IVAN TALAVERA PMINDORA During your visit today, we recorded the following information about you: Ivan Talavera PA-C 02/12/2024 10:51 AM Signed Can we please fax discontinuation oxygen order to [phone]. Patient not sure oxygen supplier YonyCarmelo tylerVICENTE 02/12/2024 11:06 AM Signed Discontinuation order faxed Allergies As of Date: 02/12/2024 (No Known Allergies) Date Reviewed: 02/12/2024 Reviewed by: Ivan Talavera PA-C - Fully Assessed Prescriptions as of 02/12/2024 - tolterodine ER (DETROL LA) 2 mg 24 hr capsule Take 2 mg by mouth. - ADVAIR HFA 230-21 mcg/actuation inhaler INHALE 2 PUFFS BY MOUTH TWICE DAILY DIRECTED - tolterodine (DETROL) 2 mg tablet Take 2 mg by mouth once daily. - buPROPion SR (WELLBUTRIN SR) 150 mg 12 hr tablet Take 150 mg by mouth once daily. - albuterol HFA (PROVENTIL HFA, VENTOLIN HFA) 90 mcg/actuation inhaler Inhale 2 Puffs as instructed every 4 hours as needed for wheezing/shortness of breath. - fluticasone-salmeterol (ADVAIR DISKUS) 500-50 mcg/dose dsdv Inhale 1 Puff as instructed two times a day. - pantoprazole DR (PROTONIX) 40 mg tablet Take 1 tablet by mouth daily at 6 am. - tacrolimus (PROTOPIC) 0.1 % ointment APPLY TO AFFECTED TWICE DAILY X 14 DAYS, STOP FOR 1 WEEK AND RESUME IF NEEDED - atorvastatin (LIPITOR) 80 mg tablet Take 1 tablet by mouth daily at bedtime. - albuterol HFA (PROVENTIL HFA, VENTOLIN HFA) 90 mcg/actuation inhaler Inhale 1 Puff as instructed every 4 hours as needed for wheezing/shortness of breath. Inhale 1 to 2 puffs every 4 to 6 hours as needed - Miscellaneous Medical Supply Dispense one nebulizer compressor with lifetime supplies. - albuterol (PROVENTIL) 2.5 mg /3 mL (0.083 %) nebulizer solution Use 3 mL via nebulizer every 4 hours as needed for wheezing/shortness of breath. - citalopram (CELEXA) 40 mg tablet Take 40 mg by mouth once daily. - oxybutynin (DITROPAN) 5 mg tablet Take 5 mg by mouth twice daily. - calcium carbonate (CALTRATE) 600 mg calcium (1,500 mg) tab Take 1,200 mg by mouth once daily. - Vit A,C and P-Uajdsp-Arptpvyr (OCUVITE) 300 mcg-200 mg-27 mg-2 mg tab Take 1 tablet by mouth once daily. - aspirin, enteric coated (ASPIRIN, ENTERIC COATED) 81 mg EC tablet Take 81 mg by mouth once daily. 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 Consent was given by the patient. [facility] Work Phone: [facility] Work Phone: CNOVon 01-08-2024 CNOV Office Visit (PMINLL ) -- KASSANDRA SMITH ([id number]) 1955 F Date Time Provider Department 01/08/24 1:40 PM IVAN TALAVERAINDORA During your visit today, we recorded the following information about you: Pulse Blood pressure Weight Height 73/minute 110/74 89.8 kg 1.702 m Ivan Talavera PA-C 01/08/2024 3:16 PM Signed . Pulmonary Clinic Follow-up Note Patient Name: Kassandra Smith PRIMARY CARE PHYSICIAN: Mracela Buchanan MD Date of visit: January 08, 2024 COMMUNICATION WILL BE SENT VIA SHARED MEDICAL RECORDS OR US MAIL. Subjective: Kassandra Smith is a 68 year old year old female who presents for hospital follow up. last seen in the office 10/23/[address] Mckeon for hypersensitivity pneumonitis At that time, symptoms were stable off steroids. Plan was to continue high dose ICS-LABA snd if symptoms worsen, would discuss restarting systemic steroids, removing birds from her home Since seeing us last, had a fall on 12/30/23- was pulled down by her dog when taking them for walk and completely lande don her R side. She went to ER on 01/02/24 due to pain in the R side. Ultimately ended up admitting to the hospital for hypoxia and 2 rib fractures. 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 She presented to the ED on 01/01 with complaints of right chest/rib pain as well as right shoulder pain following a fall from standing on 12/29. -head strike, -LOC. She had been walking her dog when he pulled and she fell over landing on her right side on the sidewalk. The patient states that the pain did not get any better and she was experiencing some shortness of breath, therefore, she decided to come to the ED. Upon arrival, the patient's SpO2 was 76% on room air. Once patient was in an ED bed, she was placed on Airvo. CT with nondisplaced right 5th and 6th rib fractures. Admitted to trauma service and was in ICU for High flow O2. Multimodal pain management initiated and patient had improving respiratory status. Transferred to RNF on hospital day 3 and was weaned to 6L NC. On hospital day 4 (day of discharge) she was weaned to 4L NC. Both medicine and pulmonology consults had nothing further to add. Prescription for home O2 sent and set up at patient's house. On day of discharge all vital signs, laboratory data, and physical exam findings were reviewed and patient was deemed appropriate for hospital discharge. At the time of discharge, patient's pain was controlled with oral analgesia, patient was urinating, having BMs, sleeping, and eating well. Patient was discharged home with scripts and follow up appointment recommendations. Discharge plan was discussed with the patient and all of the patient's questions were answered. Patient verbalized understanding of discharge instructions and was able to perform read-back technique. Since hospitalization is wearing 4 L at all times at home. Is not currently wearing it now. Does not feel SOB. Did not feel sob prior to going to ER. Is hoping to come off oxygen. Prior to this fall, states continues to do well from a cough standpoint. MEDICATIONS: tolterodine ER (DETROL LA) 2 mg 24 hr capsule Take 2 mg by mouth. ADVAIR HFA 230-21 mcg/actuation inhaler INHALE 2 PUFFS BY MOUTH TWICE DAILY DIRECTED tolterodine (DETROL) 2 mg tablet Take 2 mg by mouth once daily. buPROPion SR (WELLBUTRIN SR) 150 mg 12 hr tablet Take 150 mg by mouth once daily. albuterol HFA (PROVENTIL HFA, VENTOLIN HFA) 90 mcg/actuation inhaler Inhale 2 Puffs as instructed every 4 hours as needed for wheezing/shortness of breath. fluticasone-salmeterol (ADVAIR DISKUS) 500-50 mcg/dose dsdv Inhale 1 Puff as instructed two times a day. pantoprazole DR (PROTONIX) 40 mg tablet Take 1 tablet by mouth daily at 6 am. tacrolimus (PROTOPIC) 0.1 % ointment APPLY TO AFFECTED TWICE DAILY X 14 DAYS, STOP FOR 1 WEEK AND RESUME IF NEEDED atorvastatin (LIPITOR) 80 mg tablet Take 1 tablet by mouth daily at bedtime. albuterol HFA (PROVENTIL HFA, VENTOLIN HFA) 90 mcg/actuation inhaler Inhale 1 Puff as instructed every 4 hours as needed for wheezing/shortness of breath. 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 albuterol (PROVENTIL) 2.5 mg /3 mL (0.083 %) nebulizer solution Use 3 mL via nebulizer every 4 hours as needed for wheezing/shortness of breath. citalopram (CELEXA) 40 mg tablet Take 40 mg by mouth once daily. oxybutynin (DITROPAN) 5 mg tablet Take 5 mg by mouth twice daily. calcium carbonate (CALTRATE) 600 mg calcium (1,500 mg) tab Take 1,200 mg by mouth once daily. Vit A,C and E- (more content not included)... Normal [facility] 01-08-2024 CNPN Telephone (PMINLL) -- KASSANDRA SMITH ([id number]) 1955 F Date Time Provider Department 01/08/24 IVAN TALAVERA During your visit today, we recorded the following information about you: Ivan Talavera PA-C 01/08/2024 4:01 PM Signed Please let Nhi know that her testing does show she is still requiring oxygen. However- she no longer needs 4 L of oxygen. She does not need to wear oxygen at rest but recommend she still wear 2 L with exertion and sleep and we can update the testing again in 4 weeks Kimberly Martins, KATERINA 01/08/2024 4:11 PM Signed Updated patient below message. Schedulers can you please reach out to patient to assist with scheduling a repeat oximetry in 4 weeks . Thanks! Diana Salas 01/18/2024 3:12 PM Signed 01/17 - pt scheduled 02/12/2024 Allergies As of Date: 01/08/2024 (No Known Allergies) Date Reviewed: 01/08/2024 Reviewed by: Ivan Talavera PA-C - Fully Assessed Primary Visit Diagnosis:Hypoxia [R09.02] Order(s):OXIMETRY WITH AMBULATION [[id number]] Order #: [id number]: 1 FUTURE Prescriptions as of 01/18/2024 - tolterodine ER (DETROL LA) 2 mg 24 hr capsule Take 2 mg by mouth. - ADVAIR HFA 230-21 mcg/actuation inhaler INHALE 2 PUFFS BY MOUTH TWICE DAILY DIRECTED - tolterodine (DETROL) 2 mg tablet Take 2 mg by mouth once daily. - buPROPion SR (WELLBUTRIN SR) 150 mg 12 hr tablet Take 150 mg by mouth once daily. - albuterol HFA (PROVENTIL HFA, VENTOLIN HFA) 90 mcg/actuation inhaler Inhale 2 Puffs as instructed every 4 hours as needed for wheezing/shortness of breath. - fluticasone-salmeterol (ADVAIR DISKUS) 500-50 mcg/dose dsdv Inhale 1 Puff as instructed two times a day. - pantoprazole DR (PROTONIX) 40 mg tablet Take 1 tablet by mouth daily at 6 am. - tacrolimus (PROTOPIC) 0.1 % ointment APPLY TO AFFECTED TWICE DAILY X 14 DAYS, STOP FOR 1 WEEK AND RESUME IF NEEDED - atorvastatin (LIPITOR) 80 mg tablet Take 1 tablet by mouth daily at bedtime. - albuterol HFA (PROVENTIL HFA, VENTOLIN HFA) 90 mcg/actuation inhaler Inhale 1 Puff as instructed every 4 hours as needed for wheezing/shortness of breath. Inhale 1 to 2 puffs every 4 to 6 hours as needed - Miscellaneous Medical Supply Dispense one nebulizer compressor with lifetime supplies. - albuterol (PROVENTIL) 2.5 mg /3 mL (0.083 %) nebulizer solution Use 3 mL via nebulizer every 4 hours as needed for wheezing/shortness of breath. - citalopram (CELEXA) 40 mg tablet Take 40 mg by mouth once daily. - oxybutynin (DITROPAN) 5 mg tablet Take 5 mg by mouth twice daily. - calcium carbonate (CALTRATE) 600 mg calcium (1,500 mg) tab Take 1,200 mg by mouth once daily. - Vit A,C and I-Wdkpnr-Zkknwlmv (OCUVITE) 300 mcg-200 mg-27 mg-2 mg tab Take 1 tablet by mouth once daily. - aspirin, enteric coated (ASPIRIN, ENTERIC COATED) 81 mg EC tablet Take 81 mg by mouth once daily. Problem List As Of Date 01/08/2024 Noted Resolved Hypoxia [R09.02] 05/26/2021 Hypersensitivity pneumonia (HCC) [J67.9] 03/14/2023 Interstitial lung disease (HCC) [J84.9] 03/14/2023 Need for pneumocystis prophylaxis [Z29.89] 03/15/2023 Acute hypoxemic respiratory failure (HCC) [J96.*03/15/2023 Encounter Status:Closed by IVAN TALAVERA on 01/16/24 Normal [facility] No Panel Informationon 01-07 Naty Melgar RRT 01/08/2024 2:50 PM RESPIRATORY THERAPY OXIMETRY WITH AMBULATION Oximetry with Ambulation Test for This Encounter O2 Device O2 Adapter NC O2 Flow SpO2% HR Activity Ft Walked (ft) Time (min) Avg Speed (MPH) R/A 92 80 Resting R/A 87 89 Walking, usual pace 235 1.7 1.57 NC 2 93 73 Resting NC 2 93 88 Walking, usual pace 405 3 1.53 General Information Pulse Oximetry Site Total Time Spent Walking Assistance/O2 Supply Carrier Forehead 30 Wheeled Walker NAME: Naty Melgar RRT PATIENT NAME: Kassandra Smith DATE: January 08, 2024 TIME: 2:49 PM Comment: [facility] CBC panel Auto (Bld)on 01-04 Erythrocyte distribution width (RBC) [Ratio] 13.2 % 11.5 - 14.5 % [facility] Hematocrit (Bld) [Volume fraction] 45.7 % 36.0 - 46.0 % [facility] Hemoglobin (Bld) [Mass/Vol] 14.6 g/dL 12.0 - 16.0 g/dL [facility] Interpretation and review of laboratory results Abnormal [facility] MCH (RBC) [Entitic mass] 32.5 pg 26.0 - 34.0 pg [facility] MCHC (RBC) [Mass/Vol] 31.9 g/dL Low 32.0 - 36.0 g/dL [facility] MCV (RBC) [Entitic vol] 102 fL High 80 - 100 fL [facility] Nucleated RBC/100 WBC (Bld) [Ratio] 0 % [facility] Platelets (Bld) [#/Vol] 256 10*3/uL [facility] RBC (Bld) [#/Vol] 4.49 10*6/uL [facility] WBC (Bld) [#/Vol] 7.2 10*3/uL [facility] Erythrocyte distribution width (RBC) [Ratio] 13.2 % Normal 11.5-14.5 [facility] Comment on above: Performed By: #### 5 8410-2 ####INES CHASE ([id number])[facility] ([facility])[address] [place] [address] Hematocrit (Bld) [Volume fraction] 45.7 % Normal 36.0-46.0 [facility] Comment on above: Performed By: #### 5 8410-2 ####INES CHASE ([id number])[facility] ([facility])[address] [place] [address] Hemoglobin (Bld) [Mass/Vol] 14.6 g/dL Normal 12.0-16.0 [facility] Comment on above: Performed By: #### 5 8410-2 ####INES CHASE ([id number])[facility] ([facility])[address] [place] [address] MCH (RBC) [Entitic mass] 32.5 pg Normal 26.0-34.0 [facility] Comment on above: Performed By: #### 5 8410-2 ####INES CHASE ([id number])[facility] ([facility])[address] [place] [address] MCHC (RBC) [Mass/Vol] 31.9 g/dL Low 32.0-36.0 [facility] Comment on above: Performed By: #### 5 8410-2 ####INES CHASE ([id number])[facility] ([facility])[address] [place] [address] MCV (RBC) [Entitic vol] 102 fL High 80-100 [facility] Comment on above: Performed By: #### 5 8410-2 ####INES CHASE ([id number])[facility] ([facility])[address] [place] [address] Nucleated RBC/100 WBC (Bld) [Ratio] 0.0 /100 WBCs Normal 0.0-0.0 [facility] Comment on above: Performed By: #### 5 8410-2 ####INES CHASE ([id number])[facility] ([facility])[address] [place] [address] Platelets (Bld) [#/Vol] 256 x10*3/uL Normal 150-450 [facility] Comment on above: Performed By: #### 5 8410-2 ####INES CHASE ([id number])[facility] ([facility])[address] [place] [address] RBC (Bld) [#/Vol] 4.49 x10*6/uL Normal 4.00-5.20 [facility] Comment on above: Performed By: #### 5 8410-2 ####INES CHASE ([id number])[facility] ([facility])[address] [place] [address] WBC (Bld) [#/Vol] 7.2 x10*3/uL Normal 4.4-11.3 [facility] Comment on above: Performed By: #### 5 8410-2 ####INES CHASE ([id number])[facility] ([facility])[address] [place] [address] Magnesiumon 01-05-2024 Magnesium [Mass/Vol] 2.05 mg/dL 1.60 - 2.40 mg/dL [facility] Magnesium [Mass/Vol] 2.05 mg/dL Normal 1.60-2.40 [facility] Comment on above: Performed By: #### 1 9123-9 ####INES CHASE ([id number])[facility] ([facility])[address] [place] [address] Magnesium [Mass/Vol]on 01-04 Interpretation and review of laboratory results Normal [facility] No Panel Informationon 01-04 [facility] Renal function 2000 panelon 01-05-2024 Albumin BCP dye [Mass/Vol] 3.8 g/dL 3.4 - 5.0 g/dL [facility] Anion gap [Moles/Vol] 12 mmol/L 10 - 20 mmol/L [facility] Calcium [Mass/Vol] 9.2 mg/dL 8.6 - 10. 3 mg/dL [facility] Chloride [Moles/Vol] 104 mmol/L 98 - 10 7 mmol/L [facility] CO2 [Moles/Vol] 29 mmol/L 21 - 32 mmol/L [facility] Creatinine [Mass/Vol] 1.07 mg/dL High 0.50 - 1.05 mg/dL [facility] GFR/1.73 sq M.predicted among non-blacks MDRD (S/P/Bld) [Vol rate/Area] 57 mL/min/{1.73_m2} Low - PINF [facility] Comment on above: Calculations of brandyn mated GFR are performed using the 2020 CKD-EPI Study Refit equation without the race variable for the IDMS-Traceable creatinine methods. https://jasn.asnjournals.org/content//ASN.2917025 988 Glucose [Mass/Vol] 76 mg/dL 74 - 99 mg/dL [facility] Interpretation and review of laboratory results Abnormal [facility] Phosphate [Mass/Vol] 4 mg/dL 2.5 - 4 .9 mg/dL [facility] Comment on above: The performance souleymane acteristics of phosphorus testing in heparinized plasma have been validated by the individual laboratory site where testing is performed. Testing on heparinized plasma is not approved by the FDA; however, such approval is not necessary. Potassium [Moles/Vol] 4.7 mmol/L 3.5 - 5.3 mmol/L [facility] Sodium [Moles/Vol] 140 mmol/L 136 - 145 mmol/L [facility] Urea nitrogen [Mass/Vol] 21 mg/dL 6 - 23 mg/dL [facility] Albumin BCP dye [Mass/Vol] 3.8 g/dL Normal 3.4-5.0 [facility] Comment on above: Performed By: #### 2 4362-6 ####INES CHASE ([id number])[facility] ([facility])[address] [place] [address] Anion gap [Moles/Vol] 12 mmol/L Normal 10-20 [facility] Comment on above: Performed By: #### 2 4362-6 ####INES CHASE ([id number])[facility] ([facility])[address] [place] [address] Calcium [Mass/Vol] 9.2 mg/dL Normal 8.6-10.3 [facility] Comment on above: Performed By: #### 2 436-6 ####INES CHASE ([id number])[facility] ([facility])[address] [place] [address] Chloride [Moles/Vol] 104 mmol/L Normal 98-107 [facility] Comment on above: Performed By: #### 2 436-6 ####INES CHASE ([id number])[facility] ([facility])[address] [place] [address] CO2 [Moles/Vol] 29 mmol/L Normal 21-32 [facility] Comment on above: Performed By: #### 2 4362-6 ####INES CHASE ([id number])[facility] ([facility])[address] [place] [address] Creatinine [Mass/Vol] 1.07 mg/dL High 0.50-1.05 [facility] Comment on above: Performed By: #### 2 4362-6 ####INES CHASE ([id number])[facility] ([facility])[address] [place] [address] Glomerular filtration rate/1.73 sq M.predicted 57 mL/min/1.73m*2 Low >60 [facility] Comment on above: Result Comment: Calc ulations of estimated GFR are performed using the 2020 CKD-EPI Study Refit equation without the race variable for the IDMS-Traceable creatinine methods. https://jasn.asnjournals.org/content//ASN.0637862 988 Performed By: #### 2 4362-6 ####INES CHASE ([id number])[facility] ([facility])[address] [place] [address] Glucose [Mass/Vol] 76 mg/dL Normal 74-99 [facility] Comment on above: Performed By: #### 2 4362-6 ####INES CHASE ([id number])[facility] ([facility])[address] [place] [address] Phosphate [Mass/Vol] 4.0 mg/dL Normal 2.5-4.9 [facility] Comment on above: Result Comment: The performance characteristics of phosphorus testing in heparinized plasma have been validated by the individual laboratory site where testing is performed. Testing on heparinized plasma is not approved by the FDA; however, such approval is not necessary. Performed By: #### 2 4362-6 ####INES CHASE ([id number])[facility] ([facility])[address] [place] [address] Potassium [Moles/Vol] 4.7 mmol/L Normal 3.5-5.3 [facility] Comment on above: Performed By: #### 2 4362-6 ####INES CHASE ([id number])[facility] ([facility])[address] [place] [address] Sodium [Moles/Vol] 140 mmol/L Normal 136-145 [facility] Comment on above: Performed By: #### 2 4362-6 ####INES CHASE ([id number])[facility] ([facility])[address] [place] [address] Urea nitrogen [Mass/Vol] 21 mg/dL Normal 6-23 [facility] Comment on above: Performed By: #### 2 4362-6 ####INES CHASE ([id number])[facility] ([facility])[address] [place] [address] CBC panel Auto (Bld)on 01-03 Erythrocyte distribution width (RBC) [Ratio] 13.2 % 11.5 - 14.5 % [facility] Hematocrit (Bld) [Volume fraction] 45.4 % 36.0 - 46.0 % [facility] Hemoglobin (Bld) [Mass/Vol] 14.6 g/dL 12.0 - 16.0 g/dL [facility] Interpretation and review of laboratory results Normal [facility] MCH (RBC) [Entitic mass] 32.3 pg 26.0 - 34.0 pg [facility] MCHC (RBC) [Mass/Vol] 32.2 g/dL 32.0 - 36.0 g/dL [facility] MCV (RBC) [Entitic vol] 100 fL 80 - 100 fL [facility] Nucleated RBC/100 WBC (Bld) [Ratio] 0 % [facility] Platelets (Bld) [#/Vol] 240 10*3/uL [facility] RBC (Bld) [#/Vol] 4.52 10*6/uL [facility] WBC (Bld) [#/Vol] 8.3 10*3/uL [facility] Erythrocyte distribution width (RBC) [Ratio] 13.2 % Normal 11.5-14.5 [facility] Comment on above: Performed By: #### 5 8410-2 ####INES CHASE ([id number])[facility] ([facility])[address] [place] [address] Hematocrit (Bld) [Volume fraction] 45.4 % Normal 36.0-46.0 [facility] Comment on above: Performed By: #### 5 8410-2 ####INES CHASE ([id number])[facility] ([facility])[address] [place] [address] Hemoglobin (Bld) [Mass/Vol] 14.6 g/dL Normal 12.0-16.0 [facility] Comment on above: Performed By: #### 5 8410-2 ####INES CHASE ([id number])[facility] ([facility])[address] [place] [address] MCH (RBC) [Entitic mass] 32.3 pg Normal 26.0-34.0 [facility] Comment on above: Performed By: #### 5 8410-2 ####INES CHASE ([id number])[facility] ([facility])[address] [place] [address] MCHC (RBC) [Mass/Vol] 32.2 g/dL Normal 32.0-36.0 [facility] Comment on above: Performed By: #### 5 8410-2 ####INES CHASE ([id number])[facility] ([facility])[address] [place] [address] MCV (RBC) [Entitic vol] 100 fL Normal 80-100 [facility] Comment on above: Performed By: #### 5 8410-2 ####INES CHASE ([id number])[facility] ([facility])[address] [place] [address] Nucleated RBC/100 WBC (Bld) [Ratio] 0.0 /100 WBCs Normal 0.0-0.0 [facility] Comment on above: Performed By: #### 5 8410-2 ####INES CHASE ([id number])[facility] ([facility])[address] [place] [address] Platelets (Bld) [#/Vol] 240 x10*3/uL Normal 150-450 [facility] Comment on above: Performed By: #### 5 8410-2 ####INES CHASE ([id number])[facility] ([facility])[address] [place] [address] RBC (Bld) [#/Vol] 4.52 x10*6/uL Normal 4.00-5.20 [facility] Comment on above: Performed By: #### 5 8410-2 ####INES CHASE ([id number])[facility] ([facility])[address] [place] [address] WBC (Bld) [#/Vol] 8.3 x10*3/uL Normal 4.4-11.3 [facility] Comment on above: Performed By: #### 5 8410-2 ####INES CHASE ([id number])[facility] ([facility])[address] [place] [address] Magnesiumon 01-04-2024 Magnesium [Mass/Vol] 2.07 mg/dL 1.60 - 2.40 mg/dL [facility] Magnesium [Mass/Vol] 2.07 mg/dL Normal 1.60-2.40 [facility] Comment on above: Performed By: #### 1 9123-9 ####INES CHASE ([id number])[facility] ([facility])[address] [place] [address] No Panel Informationon 01-03 Interpretation and review of laboratory results Normal [facility] Renal function 2000 panelon 01-04-2024 Albumin BCP dye [Mass/Vol] 3.5 g/dL 3.4 - 5.0 g/dL [facility] Anion gap [Moles/Vol] 10 mmol/L 10 - 20 mmol/L [facility] Calcium [Mass/Vol] 9 mg/dL 8.6 - 10. 3 mg/dL [facility] Chloride [Moles/Vol] 105 mmol/L 98 - 10 7 mmol/L [facility] CO2 [Moles/Vol] 29 mmol/L 21 - 32 mmol/L [facility] Creatinine [Mass/Vol] 1.01 mg/dL 0.50 - 1.05 mg/dL [facility] GFR/1.73 sq M.predicted among non-blacks MDRD (S/P/Bld) [Vol rate/Area] 61 mL/min/{1.73_m2} - PINF [facility] Comment on above: Calculations of brandyn mated GFR are performed using the 2020 CKD-EPI Study Refit equation without the race variable for the IDMS-Traceable creatinine methods. https://jasn.asnjournals.org/content//ASN.7233614 988 Glucose [Mass/Vol] 80 mg/dL 74 - 99 mg/dL [facility] Phosphate [Mass/Vol] 4.5 mg/dL 2.5 - 4 .9 mg/dL [facility] Comment on above: The performance souleymane acteristics of phosphorus testing in heparinized plasma have been validated by the individual laboratory site where testing is performed. Testing on heparinized plasma is not approved by the FDA; however, such approval is not necessary. Potassium [Moles/Vol] 4.1 mmol/L 3.5 - 5.3 mmol/L [facility] Sodium [Moles/Vol] 140 mmol/L 136 - 145 mmol/L [facility] Urea nitrogen [Mass/Vol] 21 mg/dL 6 - 23 mg/dL [facility] Albumin BCP dye [Mass/Vol] 3.5 g/dL Normal 3.4-5.0 [facility] Comment on above: Performed By: #### 2 4362-6 ####INES CHASE ([id number])[facility] ([facility])[address] [place] [address] Anion gap [Moles/Vol] 10 mmol/L Normal 10-20 [facility] Comment on above: Performed By: #### 2 4362-6 ####INES CHASE ([id number])[facility] ([facility])[address] [place] [address] Calcium [Mass/Vol] 9.0 mg/dL Normal 8.6-10.3 [facility] Comment on above: Performed By: #### 2 4362-6 ####INES CHASE ([id number])[facility] ([facility])[address] [place] [address] Chloride [Moles/Vol] 105 mmol/L Normal 98-107 [facility] Comment on above: Performed By: #### 2 4362-6 ####INES CHASE ([id number])[facility] ([facility])[address] [place] [address] CO2 [Moles/Vol] 29 mmol/L Normal 21-32 [facility] Comment on above: Performed By: #### 2 4362-6 ####INES CHASE ([id number])[facility] ([facility])[address] [place] [address] Creatinine [Mass/Vol] 1.01 mg/dL Normal 0.50-1.05 [facility] Comment on above: Performed By: #### 2 4362-6 ####INES CHASE ([id number])[facility] ([facility])[address] [place] [address] Glomerular filtration rate/1.73 sq M.predicted 61 mL/min/1.73m*2 Normal >60 [facility] Comment on above: Result Comment: Calc ulations of estimated GFR are performed using the 2020 CKD-EPI Study Refit equation without the race variable for the IDMS-Traceable creatinine methods. https://jasn.asnjournals.org/content//ASN.2092262 988 Performed By: #### 2 4362-6 ####INES CHASE ([id number])[facility] ([facility])[address] [place] [address] Glucose [Mass/Vol] 80 mg/dL Normal 74-99 [facility] Comment on above: Performed By: #### 2 4362-6 ####INES CHASE ([id number])[facility] ([facility])[address] [place] [address] Phosphate [Mass/Vol] 4.5 mg/dL Normal 2.5-4.9 [facility] Comment on above: Result Comment: The performance characteristics of phosphorus testing in heparinized plasma have been validated by the individual laboratory site where testing is performed. Testing on heparinized plasma is not approved by the FDA; however, such approval is not necessary. Performed By: #### 2 4362-6 ####INES CHASE ([id number])[facility] ([facility])[address] [place] [address] Potassium [Moles/Vol] 4.1 mmol/L Normal 3.5-5.3 [facility] Comment on above: Performed By: #### 2 4362-6 ####INES CHASE ([id number])[facility] ([facility])[address] [place] [address] Sodium [Moles/Vol] 140 mmol/L Normal 136-145 [facility] Comment on above: Performed By: #### 2 4362-6 ####INES CHASE ([id number])[facility] ([facility])[address] [place] [address] Urea nitrogen [Mass/Vol] 21 mg/dL Normal 6-23 [facility] Comment on above: Performed By: #### 2 4362-6 ####INES CHASE ([id number])[facility] ([facility])[address] [place] [address] CBC panel Auto (Bld)on 01-02 Erythrocyte distribution width (RBC) [Ratio] 13.3 % Normal 11.5-14.5 [facility] Comment on above: Performed By: #### 5 8410-2 ####INES CHASE ([id number])[facility] ([facility])[address] [place] [address] Hematocrit (Bld) [Volume fraction] 45.7 % Normal 36.0-46.0 [facility] Comment on above: Performed By: #### 5 8410-2 ####INES CHASE (310532)[facility] ([facility])[address] [place] [address] Hemoglobin (Bld) [Mass/Vol] 14.8 g/dL Normal 12.0-16.0 [facility] Comment on above: Performed By: #### 5 8410-2 ####INES CHASE ([id number])[facility] ([facility])[address] [place] [address] Interpretation and review of laboratory results Abnormal [facility] MCH (RBC) [Entitic mass] 32.6 pg Normal 26.0-34.0 [facility] Comment on above: Performed By: #### 5 8410-2 ####INES CHASE ([id number])[facility] ([facility])[address] [place] [address] MCHC (RBC) [Mass/Vol] 32.4 g/dL Normal 32.0-36.0 [facility] Comment on above: Performed By: #### 5 8410-2 ####INES CHASE (195213)[facility] ([facility])[address] [place] [address] MCV (RBC) [Entitic vol] 101 fL High 80-100 [facility] Comment on above: Performed By: #### 5 8410-2 ####INES CHASE ([id number])[facility] ([facility])[address] [place] [address] Nucleated RBC/100 WBC (Bld) [Ratio] 0 % [facility] Platelets (Bld) [#/Vol] 270 10*3/uL [facility] RBC (Bld) [#/Vol] 4.54 10*6/uL [facility] WBC (Bld) [#/Vol] 10.7 10*3/uL [facility] Nucleated RBC/100 WBC (Bld) [Ratio] 0.0 /100 WBCs Normal 0.0-0.0 [facility] Comment on above: Performed By: #### 5 8410-2 ####INES CHASE ([id number])[facility] ([facility])[address] [place] [address] Platelets (Bld) [#/Vol] 270 x10*3/uL Normal 150-450 [facility] Comment on above: Performed By: #### 5 8410-2 ####INES CHASE ([id number])[facility] ([facility])[address] [place] [address] RBC (Bld) [#/Vol] 4.54 x10*6/uL Normal 4.00-5.20 [facility] Comment on above: Performed By: #### 5 8410-2 ####INES CHASE ([id number])[facility] ([facility])[address] [place] [address] WBC (Bld) [#/Vol] 10.7 x10*3/uL Normal 4.4-11.3 [facility] Comment on above: Performed By: #### 5 8410-2 ####INES CHASE ([id number])[facility] ([facility])[address] [place] [address] Comprehensive metabolic 2000 panelon 01-03-2024 Albumin BCP dye [Mass/Vol] 3.9 g/dL Normal 3.4-5.0 [facility] Comment on above: Performed By: #### 2 4323-8 ####INES CHASE ([id number])[facility] ([facility])[address] [facility] [place] [address] ALP [Catalytic activity/Vol] 132 U/L Normal 33-136 [facility] Comment on above: Performed By: #### 2 4323-8 ####INES CHASE ([id number])[facility] ([facility])[address] [place] [address] ALT With P-5'-P [Catalytic activity/Vol] 13 U/L Normal 7-45 [facility] Comment on above: Patients treated wit h Sulfasalazine may generate falsely decreased results for ALT. Result Comment: Tasia ents treated with Sulfasalazine may generate falsely decreased results for ALT. Performed By: #### 2 4323-8 ####INES CHASE ([id number])[facility] ([facility])[address] [facility] [place] [address] Anion gap [Moles/Vol] 12 mmol/L Normal 10-20 [facility] Comment on above: Performed By: #### 2 4323-8 ####INES CHASE ([id number])[facility] ([facility])[address] [facility] [place] [address] AST With P-5'-P [Catalytic activity/Vol] 14 U/L Normal 9-39 [facility] Comment on above: Performed By: #### 2 4323-8 ####INES CHASE ([id number])[facility] ([facility])[address] [place] [address] Bilirubin [Mass/Vol] 1 mg/dL 0.0 - 1 .2 mg/dL [facility] Calcium [Mass/Vol] 9.2 mg/dL Normal 8.6-10.3 [facility] Comment on above: Performed By: #### 2 4323-8 ####INES CHASE ([id number])[facility] ([facility])[address] [place] [address] Chloride [Moles/Vol] 105 mmol/L Normal 98-107 [facility] Comment on above: Performed By: #### 2 4323-8 ####INES CHASE (595606)[facility] ([facility])[address] [place] [address] CO2 [Moles/Vol] 27 mmol/L Normal 21-32 [facility] Comment on above: Performed By: #### 2 4323-8 ####INES CHASE ([id number])[facility] ([facility])[address] [place] [address] Creatinine [Mass/Vol] 0.98 mg/dL Normal 0.50-1.05 [facility] Comment on above: Performed By: #### 2 4323-8 ####INES CHASE (300181)[facility] ([facility])[address] [place] [address] GFR/1.73 sq M.predicted among non-blacks MDRD (S/P/Bld) [Vol rate/Area] 63 mL/min/{1.73_m2} - [facility] Comment on above: Calculations of brandyn mated GFR are performed using the 2020 CKD-EPI Study Refit equation without the race variable for the IDMS-Traceable creatinine methods. https://jasn.asnjournals.org/content/early/ASN.0566971 988 Glucose [Mass/Vol] 99 mg/dL Normal 74-99 [facility] Comment on above: Performed By: #### 2 4323-8 ####INES CHASE (765517)[facility] ([facility])[address] [place] [address] Interpretation and review of laboratory results Normal [facility] Potassium [Moles/Vol] 3.8 mmol/L Normal 3.5-5.3 [facility] Comment on above: Performed By: #### 2 4323-8 ####INES CHASE (860211)[facility] ([facility])[address] [place] [address] Protein [Mass/Vol] 7 g/dL 6.4 - 8.2 g/dL [facility] Sodium [Moles/Vol] 140 mmol/L Normal 136-145 [facility] Comment on above: Performed By: #### 2 432-8 ####INES CHASE (477871)[facility] ([facility])[address] [place] [address] Urea nitrogen [Mass/Vol] 18 mg/dL Normal 6-23 [facility] Comment on above: Performed By: #### 2 432-8 ####INES CHASE ([id number])[facility] ([facility])[address] [place] [address] [facility] Bilirubin [Mass/Vol] 1.0 mg/dL Normal 0.0-1.2 [facility] Comment on above: Performed By: #### 2 4323-8 ####INES CHASE (364502)[facility] ([facility])[address] [place] [address] Glomerular filtration rate/1.73 sq M.predicted 63 mL/min/1.73m*2 Normal >60 [facility] Comment on above: Result Comment: Calc ulations of estimated GFR are performed using the 2020 CKD-EPI Study Refit equation without the race variable for the IDMS-Traceable creatinine methods. https://jasn.asnjournals.org/content/early/ASN.9619655 988 Performed By: #### 2 4323-8 ####INES CHASE ([id number])[facility] ([facility])[address] [place] [address] Protein [Mass/Vol] 7.0 g/dL Normal 6.4-8.2 [facility] Comment on above: Performed By: #### 2 4323-8 ####INES RENA ([id number])[facility] ([facility])[address] [place] [address] XR CHEST 1 VIEWon 01-03-2024 XR CHEST 1 VIEW Interpreted By: Jon Turner, STUDY: XR CHEST 1 VIEW; 01/03/2024 6:34 am INDICATION: Signs/Symptoms:rib fractures. COMPARISON: 01/02/2024 ACCESSION NUMBER(S): [id number] ORDERING CLINICIAN: HAWA ZENDEJAS FINDINGS: CARDIOMEDIASTINAL SILHOUETTE AND VASCULATURE: Cardiac size: Within normal limits. Aortic shadow: Within normal limits. Mediastinal contours: Within normal limits. Pulmonary vasculature: The central vasculature is unremarkable LUNGS: Development of several bands of atelectasis in the right lower lung. The lungs otherwise are clear. ABDOMEN AND OTHER FINDINGS: No remarkable upper abdominal findings. BONES: There is slight angulation of the lateral aspect of the right 4th rib may be from a remote fracture, as an acute fracture was not evident on the previous day's CT scan. IMPRESSION: 1. Right lower lung atelectasis. Signed by: Jon Méndez 01/03/2024 8:30 AM Dictation workstation: [id number] [facility] XR Chest Single viewon 01-02 1. Right lower lung atelectasis. Signed by: Jon Méndez 01/03/2024 8:30 AM Dictation workstation: [id number] MMODAL Interpreted By: Jon Turner, STUDY: XR CHEST 1 VIEW; 01/03/2024 6:34 am INDICATION: Signs/Symptoms:rib fractures. COMPARISON: 01/02/2024 ACCESSION NUMBER(S): [id number] ORDERING CLINICIAN: HAWA ZENDEJAS FINDINGS: CARDIOMEDIASTINAL SILHOUETTE AND VASCULATURE: Cardiac size: Within normal limits. Aortic shadow: Within normal limits. Mediastinal contours: Within normal limits. Pulmonary vasculature: The central vasculature is unremarkable LUNGS: Development of several bands of atelectasis in the right lower lung. The lungs otherwise are clear. ABDOMEN AND OTHER FINDINGS: No remarkable upper abdominal findings. BONES: There is slight angulation of the lateral aspect of the right 4th rib may be from a remote fracture, as an acute fracture was not evident on the previous day's CT scan. [facility] MMODAL Jon Méndez MD - 01/03/2024 Interpreted By: Jon Méndez, STUDY: XR CHEST 1 VIEW; 01/03/2024 6:34 am INDICATION: Signs/Symptoms:rib fractures. COMPARISON: 01/02/2024 ACCESSION NUMBER(S): [id number] ORDERING CLINICIAN: HAWA ZENDEJAS FINDINGS: CARDIOMEDIASTINAL SILHOUETTE AND VASCULATURE: Cardiac size: Within normal limits. Aortic shadow: Within normal limits. Mediastinal contours: Within normal limits. Pulmonary vasculature: The central vasculature is unremarkable LUNGS: Development of several bands of atelectasis in the right lower lung. The lungs otherwise are clear. ABDOMEN AND OTHER FINDINGS: No remarkable upper abdominal findings. BONES: There is slight angulation of the lateral aspect of the right 4th rib may be from a remote fracture, as an acute fracture was not evident on the previous day's CT scan. IMPRESSION: 1. Right lower lung atelectasis. Signed by: Jon Méndez 01/03/2024 8:30 AM Dictation workstation: [id number] [facility] Work Phone: Radiology Study observation (narrative) [facility] Work Phone: XR Chest Single viewOrdered By: Jon Méndez on 01-03-2024 [facility] Work Phone: XR RIBS 4 VIEWS BILATERALon 01-03-2024 XR RIBS 4 VIEWS BILATERAL Interpreted By: Delfino Wallace, STUDY: XR RIBS 4 VIEWS BILATERAL; ; 01/03/2024 1:30 pm INDICATION: Signs/Symptoms:investigate further rib fracture. COMPARISON: None. ACCESSION NUMBER(S): [id number] ORDERING CLINICIAN: SOFIA WADE FINDINGS: Rib series, 7 views There is no evidence of a rib fracture. There is no pneumothorax. There is no airspace disease or effusion. IMPRESSION: No rib fracture seen MACRO: None Signed by: Delfino Wallace 01/03/2024 1:35 PM Dictation workstation: [id number] [facility] XR Ribs - bilateral 4 Viewso n 01-03-2024 No rib fracture seen MACRO: None Signed by: Delfino Wallace 01/03/2024 1:35 PM Dictation workstation: [id number] [facility] Interpreted By: Delfino Mcdonald, STUDY: XR RIBS 4 VIEWS BILATERAL; ; 01/03/2024 1:30 pm INDICATION: Signs/Symptoms:investigate further rib fracture. COMPARISON: None. ACCESSION NUMBER(S): [id number] ORDERING CLINICIAN: SOFIA WADE FINDINGS: Rib series, 7 views There is no evidence of a rib fracture. There is no pneumothorax. There is no airspace disease or effusion. MMODAL Delfino Wallace MD - 01/03/2024 Interpreted By: Delfino Wallace, STUDY: XR RIBS 4 VIEWS BILATERAL; ; 01/03/2024 1:30 pm INDICATION: Signs/Symptoms:investigate further rib fracture. COMPARISON: None. ACCESSION NUMBER(S): [id number] ORDERING CLINICIAN: SOFIA WADE FINDINGS: Rib series, 7 views There is no evidence of a rib fracture. There is no pneumothorax. There is no airspace disease or effusion. IMPRESSION: No rib fracture seen MACRO: None Signed by: Delfino Wallace 01/03/2024 1:35 PM Dictation workstation: [id number] [facility] Work Phone: Radiology Study observation (narrative) [facility] Work Phone: XR Ribs - bilateral 4 ViewsO rdered By: Delfino Wallace on 01-03-2024 [facility] Work Phone: CBC W Auto Differential pane l (Bld)on 01-02-2024 Basophils (Bld) [#/Vol] 0.1 10*3/uL [facility] Basophils/100 WBC (Bld) 0.8 % 0.0 - 2.0 % [facility] Eosinophils (Bld) [#/Vol] 0.38 10*3/uL [facility] Eosinophils/100 WBC (Bld) 3.2 % 0.0 - 6.0 % [facility] Erythrocyte distribution width (RBC) [Ratio] 13.2 % 11.5 - 14.5 % [facility] Hematocrit (Bld) [Volume fraction] 50.8 % High 36.0 - 46.0 % [facility] Hemoglobin (Bld) [Mass/Vol] 16.8 g/dL High 12.0 - 16.0 g/dL [facility] Immature granulocytes (Bld) [#/Vol] 0.05 10*3/uL [facility] Immature granulocytes/100 WBC (Bld) 0.4 % 0.0 - 0.9 % [facility] Comment on above: Immature Granulocyte Count (IG) includes promyelocytes, myelocytes and metamyelocytes but does not include bands. Percent differential counts (%) should be interpreted in the context of the absolute cell counts (cells/UL). Interpretation and review of laboratory results Abnormal [facility] Lymphocytes (Bld) [#/Vol] 1.25 10*3/uL [facility] Lymphocytes/100 WBC (Bld) 10.4 % 13.0 - 44.0 % [facility] MCH (RBC) [Entitic mass] 33.4 pg 26.0 - 34.0 pg [facility] MCHC (RBC) [Mass/Vol] 33.1 g/dL 32.0 - 36.0 g/dL [facility] MCV (RBC) [Entitic vol] 101 fL High 80 - 100 fL [facility] Monocytes (Bld) [#/Vol] 0.74 10*3/uL [facility] Monocytes/100 WBC (Bld) 6.2 % 2.0 - 10.0 % [facility] Neutrophils (Bld) [#/Vol] 9.5 10*3/uL High [facility] Comment on above: Percent differential counts (%) should be interpreted in the context of the absolute cell counts (cells/uL). Neutrophils/100 WBC (Bld) 79 % 40.0 - 80.0 % [facility] Nucleated RBC/100 WBC (Bld) [Ratio] 0 % [facility] Platelets (Bld) [#/Vol] 220 10*3/uL [facility] Comment on above: Platelet count verif ied by smear review. RBC (Bld) [#/Vol] 5.03 10*6/uL [facility] WBC (Bld) [#/Vol] 12 10*3/uL [facility] Basophils (Bld) [#/Vol] 0.10 x10*3/uL Normal 0.00-0.10 [facility] Comment on above: Performed By: #### 5 7021-8 #### INES CHASE ([id number]) [facility] ([facility]) [address] [place] [address] Basophils/100 WBC (Bld) 0.8 % Normal 0.0-2.0 [facility] Comment on above: Performed By: #### 5 7021-8 #### INES CHASE ([id number]) [facility] ([facility]) [address] [place] [address] Eosinophils (Bld) [#/Vol] 0.38 x10*3/uL Normal 0.00-0.70 [facility] Comment on above: Performed By: #### 5 7021-8 #### INES CHASE ([id number]) [facility] ([facility]) [address] [place] [address] Eosinophils/100 WBC (Bld) 3.2 % Normal 0.0-6.0 [facility] Comment on above: Performed By: #### 5 7021-8 #### INES CHASE (779656) [facility] ([facility]) [address] [place] [address] Erythrocyte distribution width (RBC) [Ratio] 13.2 % Normal 11.5-14.5 [facility] Comment on above: Performed By: #### 5 7021-8 #### INES CHASE ([id number]) [facility] ([facility]) [address] [place] [address] Hematocrit (Bld) [Volume fraction] 50.8 % High 36.0-46.0 [facility] Comment on above: Performed By: #### 5 7021-8 #### INES CHASE ([id number]) [facility] ([facility]) [address] [place] [address] Hemoglobin (Bld) [Mass/Vol] 16.8 g/dL High 12.0-16.0 [facility] Comment on above: Performed By: #### 5 7021-8 #### INES CHASE ([id number]) [facility] ([facility]) [address] [place] [address] Immature granulocytes (Bld) [#/Vol] 0.05 x10*3/uL Normal 0.00-0.70 [facility] Comment on above: Performed By: #### 5 7021-8 #### INES CHASE ([id number]) [facility] ([facility]) [address] [place] [address] Immature granulocytes/100 WBC (Bld) 0.4 % Normal 0.0-0.9 [facility] Comment on above: Result Comment: Betty ture Granulocyte Count (IG) includes promyelocytes, myelocytes and metamyelocytes but does not include bands. Percent differential counts (%) should be interpreted in the context of the absolute cell counts (cells/UL). Performed By: #### 5 7021-8 #### INES CHASE ([id number]) [facility] ([facility]) [address] [place] [address] Lymphocytes (Bld) [#/Vol] 1.25 x10*3/uL Normal 1.20-4.80 [facility] Comment on above: Performed By: #### 5 7021-8 #### INES CHASE ([id number]) [facility] ([facility]) [address] [place] [address] Lymphocytes/100 WBC (Bld) 10.4 % Normal 13.0-44.0 [facility] Comment on above: Performed By: #### 5 7021-8 #### INES CHASE ([id number]) [facility] ([facility]) [address] [place] [address] MCH (RBC) [Entitic mass] 33.4 pg Normal 26.0-34.0 [facility] Comment on above: Performed By: #### 5 7021-8 #### INES CHASE ([id number]) [facility] ([facility]) [address] [place] [address] MCHC (RBC) [Mass/Vol] 33.1 g/dL Normal 32.0-36.0 [facility] Comment on above: Performed By: #### 5 7021-8 #### INES CHASE ([id number]) [facility] ([facility]) [address] [place] [address] MCV (RBC) [Entitic vol] 101 fL High 80-100 [facility] Comment on above: Performed By: #### 5 7021-8 #### INES CHASE ([id number]) [facility] ([facility]) [address] [place] [address] Monocytes (Bld) [#/Vol] 0.74 x10*3/uL Normal 0.10-1.00 [facility] Comment on above: Performed By: #### 5 7021-8 #### INES CHASE ([id number]) [facility] ([facility]) [address] [place] [address] Monocytes/100 WBC (Bld) 6.2 % Normal 2.0-10.0 [facility] Comment on above: Performed By: #### 5 7021-8 #### INES CHAES ([id number]) [facility] ([facility]) [address] [place] [address] Neutrophils (Bld) [#/Vol] 9.50 x10*3/uL High 1.20-7.70 [facility] Comment on above: Result Comment: Perc ent differential counts (%) should be interpreted in the context of the absolute cell counts (cells/uL). Performed By: #### 5 7021-8 #### INES CHASE (657525) [facility] ([facility]) [address] [place] [address] Neutrophils/100 WBC (Bld) 79.0 % Normal 40.0-80.0 [facility] Comment on above: Performed By: #### 5 7021-8 #### INES CHASE ([id number]) [facility] ([facility]) [address] [place] [address] Nucleated RBC/100 WBC (Bld) [Ratio] 0.0 /100 WBCs Normal 0.0-0.0 [facility] Comment on above: Performed By: #### 5 7021-8 #### INES CHASE ([id number]) [facility] ([facility]) [address] [place] [address] Platelets (Bld) [#/Vol] 220 x10*3/uL Normal 150-450 [facility] Comment on above: Result Comment: Plat elet count verified by smear review. Performed By: #### 5 7021-8 #### INES CHASE ([id number]) [facility] ([facility]) [address] [place] [address] RBC (Bld) [#/Vol] 5.03 x10*6/uL Normal 4.00-5.20 [facility] Comment on above: Performed By: #### 5 7021-8 #### INES CHASE ([id number]) [facility] ([facility]) [address] [place] [address] WBC (Bld) [#/Vol] 12.0 x10*3/uL High 4.4-11.3 [facility] Comment on above: Performed By: #### 5 7021-8 #### INES CHASE ([id number]) [facility] ([facility] [address] [place] [address] CT ABDOMEN PELVIS W IV CONTR [place] 01-02-2024 CT ABDOMEN PELVIS W IV CONTRAST Interpreted By: Beba Rao, STUDY: CT ANGIO CHEST FOR PULMONARY EMBOLISM; CT ABDOMEN PELVIS W IV CONTRAST; 01/02/2024 9:18 pm INDICATION: Signs/Symptoms:Fall from ground-level hypoxic. COMPARISON: None. ACCESSION NUMBER(S): [id number]; [id number] ORDERING CLINICIAN: NILSA QUINTERO TECHNIQUE: Contiguous axial images of the chest were obtained after the intravenous administration of contrast using angiographic PE protocol. Coronal and sagittal reformatted images were reconstructed from the axial data. MIP images were created and reviewed. Axial CT images of the abdomen and pelvis with coronal and sagittal reconstructed images obtained after intravenous administration of . FINDINGS: MEDIASTINUM AND LYMPH NODES: No enlarged intrathoracic or axillary lymph nodes. Small hiatal hernia. No pneumomediastinum. VESSELS: Normal caliber aorta without significant aortic atherosclerosis. Evaluation of the pulmonary arteries is partially limited by contrast bolus and patient body habitus. No definite pulmonary embolism identified to the segmental level. HEART: Normal in size. No significant coronary artery calcifications. No significant pericardial effusion. LUNG, AIRWAYS, AND PLEURA: Scattered hazy and interstitial opacities. Lower lobe bronchiectasis with bronchial wall thickening and bibasilar consolidative opacities. No sizable pneumothorax or pleural effusion. OSSEOUS STRUCTURES/CHEST WALL: Subtle rib deformities noted along the anterior right 5th and 6th ribs (annotated on series 401). Degenerative changes of the thoracic spine. The sternum appears intact. ABDOMEN: BONES: No acute osseous abnormality. Multilevel degenerative changes. Subtle deformity of the distal sacrum (series 503, image 62) which is age indeterminate. ABDOMINAL WALL: Fat containing left inguinal hernia. LIVER: 19.3 cm, enlarged. BILE DUCTS: Biliary ductal dilatation with the common bile duct measuring up to 11 mm and mild central biliary ductal dilatation, within normal limits in the post cholecystectomy state. GALLBLADDER: Surgically absent. PANCREAS: Within normal limits. SPLEEN: Within normal limits. ADRENALS: Within normal limits. KIDNEYS AND URETERS: Symmetric renal enhancement. No hydronephrosis or perinephric fluid collection. No hydroureter. VESSELS: Atherosclerotic calcifications without aneurysmal dilatation seen. RETROPERITONEUM: Within normal limits. PELVIS: REPRODUCTIVE ORGANS: No pelvic mass or significant free pelvic fluid. BLADDER: Within normal limits. BOWEL: Significant colonic stool burden. The distal colon is decompressed partially limiting evaluation. Diverticulosis without CT evidence of acute diverticulitis. PERITONEUM: No ascites or free air, no fluid collection. IMPRESSION: Partially limited evaluation of the pulmonary arteries otherwise no discrete pulmonary embolism identified to the segmental level. Subtle minimally displaced/deformed right anterior 5th and 6th rib fractures. No sizable pneumothorax is identified. Hazy parenchymal airspace opacities which could be related to air trapping, infection or inflammatory changes. Bibasilar are consolidative opacities with bronchiectasis and bronchial wall thickening may be related to aspiration pneumonitis or infection. No acute abnormality of the abdomen and pelvis. Chronic changes including hepatomegaly, significant stool burden and additional findings as detailed. MACRO: None. Signed by: Beba Rao 01/02/2024 10:01 PM Dictation workstation: [id number] [facility] CT ANGIO CHEST FOR PULMONARY EMBOLISMon 01-02-2024 CT ANGIO CHEST FOR PULMONARY EMBOLISM Interpreted By: Beba Rao, STUDY: CT ANGIO CHEST FOR PULMONARY EMBOLISM; CT ABDOMEN PELVIS W IV CONTRAST; 01/02/2024 9:18 pm INDICATION: Signs/Symptoms:Fall from ground-level hypoxic. COMPARISON: None. ACCESSION NUMBER(S): [id number]; [id number] ORDERING CLINICIAN: NILSA QUINTERO TECHNIQUE: Contiguous axial images of the chest were obtained after the intravenous administration of contrast using angiographic PE protocol. Coronal and sagittal reformatted images were reconstructed from the axial data. MIP images were created and reviewed. Axial CT images of the abdomen and pelvis with coronal and sagittal reconstructed images obtained after intravenous administration of . FINDINGS: MEDIASTINUM AND LYMPH NODES: No enlarged intrathoracic or axillary lymph nodes. Small hiatal hernia. No pneumomediastinum. VESSELS: Normal caliber aorta without significant aortic atherosclerosis. Evaluation of the pulmonary arteries is partially limited by contrast bolus and patient body habitus. No definite pulmonary embolism identified to the segmental level. HEART: Normal in size. No significant coronary artery calcifications. No significant pericardial effusion. LUNG, AIRWAYS, AND PLEURA: Scattered hazy and interstitial opacities. Lower lobe bronchiectasis with bronchial wall thickening and bibasilar consolidative opacities. No sizable pneumothorax or pleural effusion. OSSEOUS STRUCTURES/CHEST WALL: Subtle rib deformities noted along the anterior right 5th and 6th ribs (annotated on series 401). Degenerative changes of the thoracic spine. The sternum appears intact. ABDOMEN: BONES: No acute osseous abnormality. Multilevel degenerative changes. Subtle deformity of the distal sacrum (series 503, image 62) which is age indeterminate. ABDOMINAL WALL: Fat containing left inguinal hernia. LIVER: 19.3 cm, enlarged. BILE DUCTS: Biliary ductal dilatation with the common bile duct measuring up to 11 mm and mild central biliary ductal dilatation, within normal limits in the post cholecystectomy state. GALLBLADDER: Surgically absent. PANCREAS: Within normal limits. SPLEEN: Within normal limits. ADRENALS: Within normal limits. KIDNEYS AND URETERS: Symmetric renal enhancement. No hydronephrosis or perinephric fluid collection. No hydroureter. VESSELS: Atherosclerotic calcifications without aneurysmal dilatation seen. RETROPERITONEUM: Within normal limits. PELVIS: REPRODUCTIVE ORGANS: No pelvic mass or significant free pelvic fluid. BLADDER: Within normal limits. BOWEL: Significant colonic stool burden. The distal colon is decompressed partially limiting evaluation. Diverticulosis without CT evidence of acute diverticulitis. PERITONEUM: No ascites or free air, no fluid collection. IMPRESSION: Partially limited evaluation of the pulmonary arteries otherwise no discrete pulmonary embolism identified to the segmental level. Subtle minimally displaced/deformed right anterior 5th and 6th rib fractures. No sizable pneumothorax is identified. Hazy parenchymal airspace opacities which could be related to air trapping, infection or inflammatory changes. Bibasilar are consolidative opacities with bronchiectasis and bronchial wall thickening may be related to aspiration pneumonitis or infection. No acute abnormality of the abdomen and pelvis. Chronic changes including hepatomegaly, significant stool burden and additional findings as detailed. MACRO: None. Signed by: Beba Rao 01/02/2024 10:01 PM Dictation workstation: [id number] [facility] CT CERVICAL SPINE WO IV CONT [facility] 01-02-2024 CT CERVICAL SPINE WO IV CONTRAST Interpreted By: Beba Rao, STUDY: CT HEAD WO IV CONTRAST; CT CERVICAL SPINE WO IV CONTRAST; 01/02/2024 9:18 pm INDICATION: Signs/Symptoms:fall. COMPARISON: None. ACCESSION NUMBER(S): [id number]; [id number] ORDERING CLINICIAN: NILSA QUINTERO TECHNIQUE: Noncontrast CT images of head. Axial noncontrast CT images of the cervical spine with coronal and sagittal reconstructed images. FINDINGS: BRAIN PARENCHYMA: Hylton-white matter interfaces are preserved. No mass effect or midline shift. Generalized parenchymal volume loss noted with concordant ventricular enlargement. Non-specific white matter changes noted, which may be related to small vessel disease. HEMORRHAGE: No acute intracranial hemorrhage. VENTRICLES and EXTRA-AXIAL SPACES: Normal size. EXTRACRANIAL SOFT TISSUES: Within normal limits. PARANASAL SINUSES/MASTOIDS: The visualized paranasal sinuses and mastoid air cells are aerated. CALVARIUM: No depressed skull fracture. No destructive osseous lesion. OTHER FINDINGS: None. CERVICAL SPINE: ALIGNMENT: Normal. VERTEBRAE: No acute fracture. SPINAL CANAL: Degenerative changes facet and uncinate arthropathy, as well as disc space narrowing and end plate hypertrophy. Vywi-cd-minwwxku right foraminal narrowing C4-C5. Wxme-zl-roytlewa bilateral foraminal narrowing C5-C6. No critical canal stenosis. PREVERTEBRAL SOFT TISSUES: No prevertebral soft tissue swelling. LUNG APICES: Biapical ground-glass interstitial airspace approximately. OTHER FINDINGS: None. IMPRESSION: No acute intracranial hemorrhage or mass effect. No acute fracture or traumatic subluxation of the cervical spine. MACRO: None. Signed by: Beba Rao 01/02/2024 9:49 PM Dictation workstation: [id number] [facility] CT HEAD WO IV CONTRASTon CT HEAD WO IV CONTRAST Interpreted By: Beba Rao, STUDY: CT HEAD WO IV CONTRAST; CT CERVICAL SPINE WO IV CONTRAST; 01/02/2024 9:18 pm INDICATION: Signs/Symptoms:fall. COMPARISON: None. ACCESSION NUMBER(S): [id number]; [id number] ORDERING CLINICIAN: NILSA QUINTERO TECHNIQUE: Noncontrast CT images of head. Axial noncontrast CT images of the cervical spine with coronal and sagittal reconstructed images. FINDINGS: BRAIN PARENCHYMA: Hylton-white matter interfaces are preserved. No mass effect or midline shift. Generalized parenchymal volume loss noted with concordant ventricular enlargement. Non-specific white matter changes noted, which may be related to small vessel disease. HEMORRHAGE: No acute intracranial hemorrhage. VENTRICLES and EXTRA-AXIAL SPACES: Normal size. EXTRACRANIAL SOFT TISSUES: Within normal limits. PARANASAL SINUSES/MASTOIDS: The visualized paranasal sinuses and mastoid air cells are aerated. CALVARIUM: No depressed skull fracture. No destructive osseous lesion. OTHER FINDINGS: None. CERVICAL SPINE: ALIGNMENT: Normal. VERTEBRAE: No acute fracture. SPINAL CANAL: Degenerative changes facet and uncinate arthropathy, as well as disc space narrowing and end plate hypertrophy. Psmj-wv-vzirkaaa right foraminal narrowing C4-C5. Xghf-fr-txcrfjfx bilateral foraminal narrowing C5-C6. No critical canal stenosis. PREVERTEBRAL SOFT TISSUES: No prevertebral soft tissue swelling. LUNG APICES: Biapical ground-glass interstitial airspace approximately. OTHER FINDINGS: None. IMPRESSION: No acute intracranial hemorrhage or mass effect. No acute fracture or traumatic subluxation of the cervical spine. MACRO: None. Signed by: Beba Rao 01/02/2024 9:49 PM Dictation workstation: [id number] [facility] Comprehensive metabolic 2000 panelon 01-02-2024 Albumin BCP dye [Mass/Vol] 4.9 g/dL 3.4 - 5.0 g/dL [facility] ALP [Catalytic activity/Vol] 170 U/L High 33 - 136 U/L [facility] ALT With P-5'-P [Catalytic activity/Vol] 17 U/L 7 - 45 U/L [facility] Comment on above: Patients treated wit h Sulfasalazine may generate falsely decreased results for ALT. Anion gap [Moles/Vol] 16 mmol/L 10 - 20 mmol/L [facility] AST With P-5'-P [Catalytic activity/Vol] 23 U/L 9 - 39 U/L [facility] Comment on above: MILD HEMOLYSIS DETEC ROBERT. The result may be falsely elevated due to hemolysis or other interferents. Clinical correlation is recommended. Repeat testing may be considered. Bilirubin [Mass/Vol] 0.8 mg/dL 0.0 - 1 .2 mg/dL [facility] Calcium [Mass/Vol] 10.7 mg/dL High 8.6 - 10. 3 mg/dL [facility] Chloride [Moles/Vol] 102 mmol/L 98 - 10 7 mmol/L [facility] CO2 [Moles/Vol] 25 mmol/L 21 - 32 mmol/L [facility] Creatinine [Mass/Vol] 1.07 mg/dL High 0.50 - 1.05 mg/dL [facility] GFR/1.73 sq M.predicted among non-blacks MDRD (S/P/Bld) [Vol rate/Area] 57 mL/min/{1.73_m2} Low - PINF [facility] Comment on above: Calculations of brandyn mated GFR are performed using the 2020 CKD-EPI Study Refit equation without the race variable for the IDMS-Traceable creatinine methods. https://jasn.asnjournals.org/content/early//ASN.0040345 988 Glucose [Mass/Vol] 91 mg/dL 74 - 99 mg/dL [facility] Interpretation and review of laboratory results Abnormal [facility] Potassium [Moles/Vol] 4.3 mmol/L 3.5 - 5.3 mmol/L [facility] Comment on above: MILD HEMOLYSIS DETEC ROBERT. The result may be falsely elevated due to hemolysis or other interferents. Clinical correlation is recommended. Repeat testing may be considered. Protein [Mass/Vol] 9 g/dL High 6.4 - 8.2 g/dL [facility] Sodium [Moles/Vol] 139 mmol/L 136 - 145 mmol/L [facility] Urea nitrogen [Mass/Vol] 18 mg/dL 6 - 23 mg/dL [facility] Albumin BCP dye [Mass/Vol] 4.9 g/dL Normal 3.4-5.0 [facility] Comment on above: Performed By: #### 2 4323-8 #### INES CHASE ([id number]) [facility]) [address] [place] [address] ALP [Catalytic activity/Vol] 170 U/L High 33-136 [facility] Comment on above: Performed By: #### 2 4323-8 #### INES CHASE ([id number]) [facility] ([facility]) [address] [place] [address] ALT With P-5'-P [Catalytic activity/Vol] 17 U/L Normal 7-45 [facility] Comment on above: Result Comment: Tasia ents treated with Sulfasalazine may generate falsely decreased results for ALT. Performed By: #### 2 4323-8 #### INES CHASE ([id number]) [facility]) [address] [place] [address] Anion gap [Moles/Vol] 16 mmol/L Normal 10-20 [facility] Comment on above: Performed By: #### 2 4323-8 #### INES CHASE ([id number]) [facility] ([facility]) [address] [place] [address] AST With P-5'-P [Catalytic activity/Vol] 23 U/L Normal 9-39 [facility] Comment on above: Result Comment: MILD HEMOLYSIS DETECTED. The result may be falsely elevated due to hemolysis or other interferents. Clinical correlation is recommended. Repeat testing may be considered. Performed By: #### 2 4323-8 #### INES CHASE ([id number]) [facility] ([facility]) [address] [place] [address] Bilirubin [Mass/Vol] 0.8 mg/dL Normal 0.0-1.2 [facility] Comment on above: Performed By: #### 2 4323-8 #### INES CHASE ([id number]) [facility]) [address] [place] [address] Calcium [Mass/Vol] 10.7 mg/dL High 8.6-10.3 [facility] Comment on above: Performed By: #### 2 4323-8 #### INES CHASE ([id number]) [facility]) [address] [place] [address] Chloride [Moles/Vol] 102 mmol/L Normal 98-107 [facility] Comment on above: Performed By: #### 2 4323-8 #### INES CHASE ([id number]) [facility]) [address] [place] [address] CO2 [Moles/Vol] 25 mmol/L Normal 21-32 [facility] Comment on above: Performed By: #### 2 4323-8 #### INES CHASE ([id number]) [facility]) [address] [place] [address] Creatinine [Mass/Vol] 1.07 mg/dL High 0.50-1.05 [facility] Comment on above: Performed By: #### 2 4323-8 #### INES CHASE ([id number]) [facility]) [address] [place] [address] Glomerular filtration rate/1.73 sq M.predicted 57 mL/min/1.73m*2 Low >60 [facility] Comment on above: Result Comment: Calc ulations of estimated GFR are performed using the 2020 CKD-EPI Study Refit equation without the race variable for the IDMS-Traceable creatinine methods. https://jasn.asnjournals.org/content/early/ASN.3026471 988 Performed By: #### 2 4323-8 #### INES CHASE ([id number]) [facility]) [address] [place] [address] Glucose [Mass/Vol] 91 mg/dL Normal 74-99 [facility] Comment on above: Performed By: #### 2 4323-8 #### INES CHASE ([id number]) [facility] [address] [place] [address] Potassium [Moles/Vol] 4.3 mmol/L Normal 3.5-5.3 [facility] Comment on above: Result Comment: MILD HEMOLYSIS DETECTED. The result may be falsely elevated due to hemolysis or other interferents. Clinical correlation is recommended. Repeat testing may be considered. Performed By: #### 2 4323-8 #### INES CHASE ([id number]) [facility]) [address] [place] [address] Protein [Mass/Vol] 9.0 g/dL High 6.4-8.2 [facility] Comment on above: Performed By: #### 2 4323-8 #### INES CHASE ([id number]) [facility]) [address] [place] [address] Sodium [Moles/Vol] 139 mmol/L Normal 136-145 [facility] Comment on above: Performed By: #### 2 4323-8 #### INES CHASE ([id number]) [facility] [address] [place] [address] Urea nitrogen [Mass/Vol] 18 mg/dL Normal 6-23 [facility] Comment on above: Performed By: #### 2 4323-8 #### INES CHASE ([id number]) [facility] [address] [place] [address] Critical Careon 01-02-2024 Herminio Lange 01/03/2024 12:29 AM Critical Care Performed by: Nilsa Quintero DO Authorized by: Nilsa Quintero DO Critical care provider statement: Critical care time (minutes): 37 Critical care time was exclusive of: Separately billable procedures and treating other patients and teaching time Critical care was necessary to treat or prevent imminent or life-threatening deterioration of the following conditions: Trauma Critical care was time spent personally by me on the following activities: Ordering and performing treatments and interventions, ordering and review of laboratory studies, ordering and review of radiographic studies, pulse oximetry, review of old charts, re-evaluation of patient's condition, examination of patient, evaluation of patient's response to treatment and discussions with consultants Care discussed with: admitting provider [facility] Work Phone: [place] [address] Work Phone: [phone] ECG 12-LEADon 01-02-2024 ECG 12-LEAD Ventricular Rate 91 Atrial Rate 91 P-R Interval 164 QRS Duration 72 Q-T Interval 344 QTC Calculation(Bazett) 423 P Hartfield 54 R Hartfield -20 T Hartfield 47 QRS Count 15 Q Onset 229 P Onset 147 P Offset 203 T Offset 401 QTC Fredericia 395 Diagnosis Normal sinus rhythm Normal ECG When compared with ECG of 05-DEC-2019 14:27, Questionable change in QRS axis See ED provider note for full interpretation and clinical correlation Confirmed by Annalee Oglesby ([id number]) on 01/06/2024 10:24:20 AM Normal [facility] Magnesiumon 01-02-2024 Magnesium [Mass/Vol] 2.29 mg/dL 1.60 - 2.40 mg/dL [facility] Magnesium [Mass/Vol] 2.29 mg/dL Normal 1.60-2.40 [facility] Comment on above: Performed By: #### 1 9123-9 #### INES CHASE ([id number]) [facility] [address] [place] [address] Magnesium [Mass/Vol]on 01-01 Interpretation and review of laboratory results Normal [facility] No Panel Informationon 01-01 Interpreted By: Beba Steel, STUDY: CT ANGIO CHEST FOR PULMONARY EMBOLISM; CT ABDOMEN PELVIS W IV CONTRAST; 01/02/2024 9:18 pm INDICATION: Signs/Symptoms:Fall from ground-level hypoxic. COMPARISON: None. ACCESSION NUMBER(S): [id number]; [id number] ORDERING CLINICIAN: NILSA QUINTERO TECHNIQUE: Contiguous axial images of the chest were obtained after the intravenous administration of contrast using angiographic PE protocol. Coronal and sagittal reformatted images were reconstructed from the axial data. MIP images were created and reviewed. Axial CT images of the abdomen and pelvis with coronal and sagittal reconstructed images obtained after intravenous administration of . FINDINGS: MEDIASTINUM AND LYMPH NODES: No enlarged intrathoracic or axillary lymph nodes. Small hiatal hernia. No pneumomediastinum. VESSELS: Normal caliber aorta without significant aortic atherosclerosis. Evaluation of the pulmonary arteries is partially limited by contrast bolus and patient body habitus. No definite pulmonary embolism identified to the segmental level. HEART: Normal in size. No significant coronary artery calcifications. No significant pericardial effusion. LUNG, AIRWAYS, AND PLEURA: Scattered hazy and interstitial opacities. Lower lobe bronchiectasis with bronchial wall thickening and bibasilar consolidative opacities. No sizable pneumothorax or pleural effusion. OSSEOUS STRUCTURES/CHEST WALL: Subtle rib deformities noted along the anterior right 5th and 6th ribs (annotated on series 401). Degenerative changes of the thoracic spine. The sternum appears intact. ABDOMEN: BONES: No acute osseous abnormality. Multilevel degenerative changes. Subtle deformity of the distal sacrum (series 503, image 62) which is age indeterminate. ABDOMINAL WALL: Fat containing left inguinal hernia. LIVER: 19.3 cm, enlarged. BILE DUCTS: Biliary ductal dilatation with the common bile duct measuring up to 11 mm and mild central biliary ductal dilatation, within normal limits in the post cholecystectomy state. GALLBLADDER: Surgically absent. PANCREAS: Within normal limits. SPLEEN: Within normal limits. ADRENALS: Within normal limits. KIDNEYS AND URETERS: Symmetric renal enhancement. No hydronephrosis or perinephric fluid collection. No hydroureter. VESSELS: Atherosclerotic calcifications without aneurysmal dilatation seen. RETROPERITONEUM: Within normal limits. PELVIS: REPRODUCTIVE ORGANS: No pelvic mass or significant free pelvic fluid. BLADDER: Within normal limits. BOWEL: Significant colonic stool burden. The distal colon is decompressed partially limiting evaluation. Diverticulosis without CT evidence of acute diverticulitis. PERITONEUM: No ascites or free air, no fluid collection. [facility] Beba Rao D O - 01/02/2024 Interpreted By: Beba Rao, STUDY: CT ANGIO CHEST FOR PULMONARY EMBOLISM; CT ABDOMEN PELVIS W IV CONTRAST; 01/02/2024 9:18 pm INDICATION: Signs/Symptoms:Fall from ground-level hypoxic. COMPARISON: None. ACCESSION NUMBER(S): [id number]; [id number] ORDERING CLINICIAN: NILSA QUINTERO TECHNIQUE: Contiguous axial images of the chest were obtained after the intravenous administration of contrast using angiographic PE protocol. Coronal and sagittal reformatted images were reconstructed from the axial data. MIP images were created and reviewed. Axial CT images of the abdomen and pelvis with coronal and sagittal reconstructed images obtained after intravenous administration of . FINDINGS: MEDIASTINUM AND LYMPH NODES: No enlarged intrathoracic or axillary lymph nodes. Small hiatal hernia. No pneumomediastinum. VESSELS: Normal caliber aorta without significant aortic atherosclerosis. Evaluation of the pulmonary arteries is partially limited by contrast bolus and patient body habitus. No definite pulmonary embolism identified to the segmental level. HEART: Normal in size. No significant coronary artery calcifications. No significant pericardial effusion. LUNG, AIRWAYS, AND PLEURA: Scattered hazy and interstitial opacities. Lower lobe bronchiectasis with bronchial wall thickening and bibasilar consolidative opacities. No sizable pneumothorax or pleural effusion. OSSEOUS STRUCTURES/CHEST WALL: Subtle rib deformities noted along the anterior right 5th and 6th ribs (annotated on series 401). Degenerative changes of the thoracic spine. The sternum appears intact. ABDOMEN: BONES: No acute osseous abnormality. Multilevel degenerative changes. Subtle deformity of the distal sacrum (series 503, image 62) which is age indeterminate. ABDOMINAL WALL: Fat containing left inguinal hernia. LIVER: 19.3 cm, enlarged. BILE DUCTS: Biliary ductal dilatation with the common bile duct measuring up to 11 mm and mild central biliary ductal dilatation, within normal limits in the post cholecystectomy state. GALLBLADDER: Surgically absent. PANCREAS: Within normal limits. SPLEEN: Within normal limits. ADRENALS: Within normal limits. KIDNEYS AND URETERS: Symmetric renal enhancement. No hydronephrosis or perinephric fluid collection. No hydroureter. VESSELS: Atherosclerotic calcifications without aneurysmal dilatation seen. RETROPERITONEUM: Within normal limits. PELVIS: REPRODUCTIVE ORGANS: No pelvic mass or significant free pelvic fluid. BLADDER: Within normal limits. BOWEL: Significant colonic stool burden. The distal colon is decompressed partially limiting evaluation. Diverticulosis without CT evidence of acute diverticulitis. PERITONEUM: No ascites or free air, no fluid collection. IMPRESSION: Partially limited evaluation of the pulmonary arteries otherwise no discrete pulmonary embolism identified to the segmental level. Subtle minimally displaced/deformed right anterior 5th and 6th rib fractures. No sizable pneumothorax is identified. Hazy parenchymal airspace opacities which could be related to air trapping, infection or inflammatory changes. Bibasilar are consolidative opacities with bronchiectasis and bronchial wall thickening may be related to aspiration pneumonitis or infection. No acute abnormality of the abdomen and pelvis. Chronic changes including hepatomegaly, significant stool burden and additional findings as detailed. MACRO: None. Signed by: Beba Rao 01/02/2024 10:01 PM Dictation workstation: [id number] [facility] Work Phone: [facility] Work Phone: No acute intracrania l hemorrhage or mass effect. No acute fracture or traumatic subluxation of the cervical spine. MACRO: None. Signed by: Beba Rao 01/02/2024 9:49 PM Dictation workstation: [id number] MMODAL Interpreted By: Beba Steel, STUDY: CT HEAD WO IV CONTRAST; CT CERVICAL SPINE WO IV CONTRAST; 01/02/2024 9:18 pm INDICATION: Signs/Symptoms:fall. COMPARISON: None. ACCESSION NUMBER(S): [id number]; [id number] ORDERING CLINICIAN: NILSA QUITNERO TECHNIQUE: Noncontrast CT images of head. Axial noncontrast CT images of the cervical spine with coronal and sagittal reconstructed images. FINDINGS: BRAIN PARENCHYMA: Hylton-white matter interfaces are preserved. No mass effect or midline shift. Generalized parenchymal volume loss noted with concordant ventricular enlargement. Non-specific white matter changes noted, which may be related to small vessel disease. HEMORRHAGE: No acute intracranial hemorrhage. VENTRICLES and EXTRA-AXIAL SPACES: Normal size. EXTRACRANIAL SOFT TISSUES: Within normal limits. PARANASAL SINUSES/MASTOIDS: The visualized paranasal sinuses and mastoid air cells are aerated. CALVARIUM: No depressed skull fracture. No destructive osseous lesion. OTHER FINDINGS: None. CERVICAL SPINE: ALIGNMENT: Normal. VERTEBRAE: No acute fracture. SPINAL CANAL: Degenerative changes facet and uncinate arthropathy, as well as disc space narrowing and end plate hypertrophy. Hhiv-lf-ayzlqxao right foraminal narrowing C4-C5. Cvlx-rv-sidtcgla bilateral foraminal narrowing C5-C6. No critical canal stenosis. PREVERTEBRAL SOFT TISSUES: No prevertebral soft tissue swelling. LUNG APICES: Biapical ground-glass interstitial airspace approximately. OTHER FINDINGS: None. [facility] Beba Rao D O - 01/02/2024 Interpreted By: Beba Rao, STUDY: CT HEAD WO IV CONTRAST; CT CERVICAL SPINE WO IV CONTRAST; 01/02/2024 9:18 pm INDICATION: Signs/Symptoms:fall. COMPARISON: None. ACCESSION NUMBER(S): [id number]; [id number] ORDERING CLINICIAN: NILSA QUINTERO TECHNIQUE: Noncontrast CT images of head. Axial noncontrast CT images of the cervical spine with coronal and sagittal reconstructed images. FINDINGS: BRAIN PARENCHYMA: Hylton-white matter interfaces are preserved. No mass effect or midline shift. Generalized parenchymal volume loss noted with concordant ventricular enlargement. Non-specific white matter changes noted, which may be related to small vessel disease. HEMORRHAGE: No acute intracranial hemorrhage. VENTRICLES and EXTRA-AXIAL SPACES: Normal size. EXTRACRANIAL SOFT TISSUES: Within normal limits. PARANASAL SINUSES/MASTOIDS: The visualized paranasal sinuses and mastoid air cells are aerated. CALVARIUM: No depressed skull fracture. No destructive osseous lesion. OTHER FINDINGS: None. CERVICAL SPINE: ALIGNMENT: Normal. VERTEBRAE: No acute fracture. SPINAL CANAL: Degenerative changes facet and uncinate arthropathy, as well as disc space narrowing and end plate hypertrophy. Inxw-qx-uwxaxdor right foraminal narrowing C4-C5. Ueqj-xk-rtknxenn bilateral foraminal narrowing C5-C6. No critical canal stenosis. PREVERTEBRAL SOFT TISSUES: No prevertebral soft tissue swelling. LUNG APICES: Biapical ground-glass interstitial airspace approximately. OTHER FINDINGS: None. IMPRESSION: No acute intracranial hemorrhage or mass effect. No acute fracture or traumatic subluxation of the cervical spine. MACRO: None. Signed by: Beba Rao 01/02/2024 9:49 PM Dictation workstation: [id number] [facility] Work Phone: [facility] Radiology Study observation (narrative) [facility] Work Phone: No Panel InformationOrdered By: Beba Rao on 01-02-2024 [facility] Work Phone: PT and aPTT panel Coag (PPP) on 01-02-2024 aPTT Coag (PPP) [Time] 29 s [facility] INR Coag (PPP) [Relative time] 1.1 {INR} 0.9 - 1.1 [facility] Interpretation and review of laboratory results Normal [facility] PT Coag (PPP) [Time] 12.8 s [facility] The APTT is no longe r used for monitoring Unfractionated Heparin Therapy. For monitoring Heparin Therapy, use the Heparin Assay. [facility] aPTT Coag (PPP) [Time] 29 s Normal 27-38 [facility] Comment on above: Order Comment: The A PTT is no longer used for monitoring Unfractionated Heparin Therapy. For monitoring Heparin Therapy, use the Heparin Assay. Performed By: #### 3 4529-8 ####INES CHASE ([id number])[facility] ([facility])[address] [place] [address] INR Coag (PPP) [Relative time] 1.1 Normal 0.9-1.1 [facility] Comment on above: Order Comment: The A PTT is no longer used for monitoring Unfractionated Heparin Therapy. For monitoring Heparin Therapy, use the Heparin Assay. Performed By: #### 3 4529-8 ####INES CHASE ([id number])[facility] ([facility])[address] [place] [address] PT Coag (PPP) [Time] 12.8 s Normal 9.8-12.8 [facility] Comment on above: Order Comment: The A PTT is no longer used for monitoring Unfractionated Heparin Therapy. For monitoring Heparin Therapy, use the Heparin Assay. Performed By: #### 3 4529-8 ####INESAKBAR CHASE ([id number])[facility] ([facility])[address] [place] [address] Tropinin I.cardiac panel Hig h sensitivity methodon 01-02-2024 Interpretation and review of laboratory results Abnormal [facility] Less than 99th perce ntile of normal range cutoff- Female and children under 18 years old <14 ng/L; Male <21 ng/L: Negative Repeat testing should be performed if clinically indicated. Female and children under 18 years old 14-50 ng/L; Male 21-50 ng/L: Consistent with possible cardiac damage and possible increased clinical risk. Serial measurements may help to assess extent of myocardial damage. >50 ng/L: Consistent with cardiac damage, increased clinical risk and myocardial infarction. Serial measurements may help assess extent of myocardial damage. NOTE: Children less than 1 year old may have higher baseline troponin levels and results should be interpreted in conjunction with the overall clinical context. NOTE: Troponin I testing is performed using a different testing methodology at [facility] than at other [facility]. Direct result comparisons should only be made within the same method. [facility] Interpretation and review of laboratory results Normal [facility] Less than 99th perce ntile of normal range cutoff- Female and children under 18 years old <14 ng/L; Male <21 ng/L: Negative Repeat testing should be performed if clinically indicated. Female and children under 18 years old 14-50 ng/L; Male 21-50 ng/L: Consistent with possible cardiac damage and possible increased clinical risk. Serial measurements may help to assess extent of myocardial damage. >50 ng/L: Consistent with cardiac damage, increased clinical risk and myocardial infarction. Serial measurements may help assess extent of myocardial damage. NOTE: Children less than 1 year old may have higher baseline troponin levels and results should be interpreted in conjunction with the overall clinical context. NOTE: Troponin I testing is performed using a different testing methodology at [facility] than at other [facility]. Direct result comparisons should only be made within the same method. [facility] Troponin I, High Sensitivity , Initialon 01-02-2024 Tropinin I.cardiac panel High sensitivity method 3 ng/L 0 - 13 ng/L [facility] Troponin I.cardiac panelon 1 03-03-2023 Tropinin I.cardiac panel High sensitivity method 15 ng/L High 0-13 [facility] Comment on above: Order Comment: Less than 99th percentile of normal range cutoff-Female and children under 18 years old <14 ng/L; Male <21 ng/L: NegativeRepeat testing should be performed if clinically indicated.Female and children under 18 years old 14-50 ng/L; Male 21-50 ng/L:Consistent with possible cardiac damage and possible increased clinicalrisk. Serial measurements may help to assess extent of myocardial damage.>50 ng/L: Consistent with cardiac damage, increased clinical risk andmyocardial infarction. Serial measurements may help assess extent ofmyocardial damage.NOTE: Children less than 1 year old may have higher baseline troponinlevels and results should be interpreted in conjunction with the overallclinical context.NOTE: Troponin I testing is performed using a differenttesting methodology at [facility] than at [facility]. Direct result comparisons should onlybe made within the same method. Performed By: #### 8 9577-1 ####INES CHASE ([id number])[facility] ([facility])[address] [place] [address] Tropinin I.cardiac panel High sensitivity method 3 ng/L Normal 0-13 [facility] Comment on above: Order Comment: Less than 99th percentile of normal range cutoff- Female and children under 18 years old <14 ng/L; Male <21 ng/L: Negative Repeat testing should be performed if clinically indicated. Female and children under 18 years old 14-50 ng/L; Male 21-50 ng/L: Consistent with possible cardiac damage and possible increased clinical risk. Serial measurements may help to assess extent of myocardial damage. >50 ng/L: Consistent with cardiac damage, increased clinical risk and myocardial infarction. Serial measurements may help assess extent of myocardial damage. NOTE: Children less than 1 year old may have higher baseline troponin levels and results should be interpreted in conjunction with the overall clinical context. NOTE: Troponin I testing is performed using a different testing methodology at [facility] than at other [facility]. Direct result comparisons should only be made within the same method. Performed By: #### 8 9577-1 #### INES RENA ([id number]) [facility] ([facility]) [address] [place] [id number] Troponin, High Sensitivity, 1 Houron 01-02-2024 Tropinin I.cardiac panel High sensitivity method 15 ng/L High 0 - 13 ng/L [facility] XR CHEST 1 VIEWon 01-02-2024 XR CHEST 1 VIEW Interpreted By: Kristofer Lubin, STUDY: XR CHEST 1 VIEW; 01/02/2024 9:03 pm INDICATION: Signs/Symptoms:Hypoxia. COMPARISON: None. ACCESSION NUMBER(S): [id number] ORDERING CLINICIAN: NILSA QUINTERO FINDINGS: The cardiomediastinal silhouette and pulmonary vasculature are within normal limits. Mild bibasilar atelectasis. No consolidation, pleural effusion or pneumothorax. IMPRESSION: No acute cardiopulmonary process. Mild bibasilar atelectasis. MACRO: None. Signed by: Kristofer Loyd 01/02/2024 9:21 PM Dictation workstation: [id number] [facility] XR Chest Single viewon 01-01 No acute cardiopulmo nary process. Mild bibasilar atelectasis. MACRO: None. Signed by: Kristofer Loyd 01/02/2024 9:21 PM Dictation workstation: [id number] MMODAL Interpreted By: Kristofer Lubin, STUDY: XR CHEST 1 VIEW; 01/02/2024 9:03 pm INDICATION: Signs/Symptoms:Hypoxia. COMPARISON: None. ACCESSION NUMBER(S): [id number] ORDERING CLINICIAN: NILSA QUINTERO FINDINGS: The cardiomediastinal silhouette and pulmonary vasculature are within normal limits. Mild bibasilar atelectasis. No consolidation, pleural effusion or pneumothorax. [facility] Kristofer Loyd MD - 01/02/2024 Interpreted By: Kristofer Loyd, STUDY: XR CHEST 1 VIEW; 01/02/2024 9:03 pm INDICATION: Signs/Symptoms:Hypoxia. COMPARISON: None. ACCESSION NUMBER(S): [id number] ORDERING CLINICIAN: NILSA QUINTERO FINDINGS: The cardiomediastinal silhouette and pulmonary vasculature are within normal limits. Mild bibasilar atelectasis. No consolidation, pleural effusion or pneumothorax. IMPRESSION: No acute cardiopulmonary process. Mild bibasilar atelectasis. MACRO: None. Signed by: Kristofer Loyd 01/02/2024 9:21 PM Dictation workstation: [id number] [facility] Work Phone: Radiology Study observation (narrative) [facility] Work Phone: XR Chest Single viewOrdered By: Kristofer Loyd on 01-02-2024 [facility] Work Phone: XR SHOULDER RIGHT 2+ VIEWSon 01-02-2024 XR SHOULDER RIGHT 2+ VIEWS Interpreted By: Kristofer Loyd, STUDY: XR SHOULDER RIGHT 2+ VIEWS; ; 01/02/2024 11:33 pm INDICATION: Signs/Symptoms:right shoulder pain after fall. COMPARISON: None. ACCESSION NUMBER(S): [id number] ORDERING CLINICIAN: HAWA ZENDEJAS FINDINGS: There is no acute fracture. The acromioclavicular joint and glenohumeral joint are intact. The subacromial space is maintained. There is mild glenohumeral joint osteoarthrosis. There is irregularity and sclerosis of the greater tuberosity compatible with rotator cuff tendinosis. IMPRESSION: No acute osseous abnormality of the right shoulder. MACRO: None. Signed by: Kristofer Loyd 01/02/2024 11:56 PM Dictation workstation: [id number] [facility] XR Shoulder - right 2 Viewso n 01-02-2024 No acute osseous abnormality of the right shoulder. MACRO: None. Signed by: Kristofer Loyd 01/02/2024 11:56 PM Dictation workstation: [id number] MMODAL Interpreted By: Kristofer Lubin, STUDY: XR SHOULDER RIGHT 2+ VIEWS; ; 01/02/2024 11:33 pm INDICATION: Signs/Symptoms:right shoulder pain after fall. COMPARISON: None. ACCESSION NUMBER(S): [id number] ORDERING CLINICIAN: HAWA ZENDEJAS FINDINGS: There is no acute fracture. The acromioclavicular joint and glenohumeral joint are intact. The subacromial space is maintained. There is mild glenohumeral joint osteoarthrosis. There is irregularity and sclerosis of the greater tuberosity compatible with rotator cuff tendinosis. [facility] Kristofer Loyd MD - 01/02/2024 Interpreted By: Kristofer Loyd, STUDY: XR SHOULDER RIGHT 2+ VIEWS; ; 01/02/2024 11:33 pm INDICATION: Signs/Symptoms:right shoulder pain after fall. COMPARISON: None. ACCESSION NUMBER(S): [id number] ORDERING CLINICIAN: HAWA ZENDEJAS FINDINGS: There is no acute fracture. The acromioclavicular joint and glenohumeral joint are intact. The subacromial space is maintained. There is mild glenohumeral joint osteoarthrosis. There is irregularity and sclerosis of the greater tuberosity compatible with rotator cuff tendinosis. IMPRESSION: No acute osseous abnormality of the right shoulder. MACRO: None. Signed by: Kristofer Loyd 01/02/2024 11:56 PM Dictation workstation: [id number] [facility] Work Phone: [facility] Work Phone: Radiology Study observation (narrative) [facility] Work Phone: CNOVon 10-23-2023 CNOV Office Visit (PMINLL ) -- KASSANDRA SMITH ([id number]) 1955 F Date Time Provider Department 10/23/23 8:00 AM KHABBAZA, KAYODE PMINLL During your visit today, we recorded the following information about you: Pulse Blood pressure Weight Height 77/minute 122/70 89.8 kg 1.702 m Kayode Mckeon MD 10/23/2023 8:28 AM Signed . Pulmonary Clinic Follow-up Note Patient Name: Kassandra Smith PRIMARY CARE PHYSICIAN: Marcela Buchanan MD Date of visit: October 23, 2023 COMMUNICATION WILL BE SENT VIA SHARED MEDICAL RECORDS OR US MAIL. Subjective: Kassandra Smith is a 67 year old year old female who presents for follow-up of asthma/copd, HP, last seen 3 months ago by Ivan. At that time she was tapered off of prednisone and switched her Advair to HFA to see if there is better delivery. Still is having mild cough though improved since starting the longer course of steroids. Off of steroids nearly 3 months, minimal cough in the morning and less issues throughout the day. Minimal SOB with heavier exertion. On advair 2 puffs twice a day, feels it is better than the discus. Uses albuterol 2-4 times a week , helps when she uses it. No longer working at the [employer]. MEDICATIONS: fluticasone-salmeterol HFA (ADVAIR HFA) 230-21 mcg/actuation inhaler Inhale 2 Puffs as instructed two times a day. albuterol HFA (PROVENTIL HFA, VENTOLIN HFA) 90 mcg/actuation inhaler Inhale 2 Puffs as instructed every 4 hours as needed for wheezing/shortness of breath. fluticasone-salmeterol (ADVAIR DISKUS) 500-50 mcg/dose dsdv Inhale 1 Puff as instructed two times a day. pantoprazole DR (PROTONIX) 40 mg tablet Take 1 tablet by mouth daily at 6 am. tacrolimus (PROTOPIC) 0.1 % ointment APPLY TO AFFECTED TWICE DAILY X 14 DAYS, STOP FOR 1 WEEK AND RESUME IF NEEDED atorvastatin (LIPITOR) 80 mg tablet Take 1 tablet by mouth daily at bedtime. albuterol HFA (PROVENTIL HFA, VENTOLIN HFA) 90 mcg/actuation inhaler Inhale 1 Puff as instructed every 4 hours as needed for wheezing/shortness of breath. 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 albuterol (PROVENTIL) 2.5 mg /3 mL (0.083 %) nebulizer solution Use 3 mL via nebulizer every 4 hours as needed for wheezing/shortness of breath. citalopram (CELEXA) 40 mg tablet Take 40 mg by mouth once daily. oxybutynin (DITROPAN) 5 mg tablet Take 5 mg by mouth twice daily. calcium carbonate (CALTRATE) 600 mg calcium (1,500 mg) tab Take 1,200 mg by mouth once daily. Vit A,C and T-Kierbn-Xbnqgung (OCUVITE) 300 mcg-200 mg-27 mg-2 mg tab Take 1 tablet by mouth once daily. aspirin, enteric coated (ASPIRIN, ENTERIC COATED) 81 mg EC tablet Take 81 mg by mouth once daily. Allergies: Patient has no known allergies. ROS: Pertinent positives and negatives are listed in the HPI, all other systems were reviewed and found to be negative. PHYSICAL EXAM: BP 122/70 (BP Site: Left Arm, BP Position: Sitting, BP Cuff Size: Regular Adult) Pulse 77 Ht 170.2 cm (5' 7) Wt 89.8 kg (198 lb) SpO2 92% BMI 31.01 kg/m? General- nad, comfortable Eyes- eomi ENT- mmm, oropharynx CV- RRR Resp- CTA bilaterally Ext- no clubbing, cyanosis, or edemas Psych- appropriate mood and affect Labs / Imaging / Diagnostic Studies: Reviewed spirometry from 10/17/2023 which showed borderline obstruction with an FEV1 of 72%, FVC 2.7 L (84%) and DLCO 81%. Prior to starting steroids her spirometry 11/2022 showed an FVC of 2.36 L (73%) and FEV1 of 63%. DLCO was 74%. Assessment: Hypersensitivity pneumonitis-confirmed on bronchoscopy 02/2023. Was on systemic steroids for several months and weaned off altogether in July 2023. Spirometry and DLCO are the best they have been right now and aside from mild cough she is feeling okay. She no longer works at the [employer]. Possible component of diastolic heart failure with slightly elevated left ventricular filling pressures -was on low dose lasix, has not noticed a big difference since stopping Smoking history, 9 pack years, quit at age 31 Hyperlipidemia 15 pet birds for 3 years Physical deconditioning Plan: Continue high-dose ICS/LABA. She has done better on Advair HFA with spacer rather than Diskus Use albuterol as needed for symptoms She will monitor her symptoms and if gradually worsens and we will again need to discuss systemic steroids, removing birds from home, etc. Follow-up in 6 months with spirometry and DLCO I spent a total of 30 minutes on the date of the service which included preparing to see the patient, gqpf-yp-hbnz patient care, completing clinical documentation, obtaining and/or reviewing separately obtained history, performing a medically appropriate examination, counseling and educating the patient/family/caregiver, ordering m (more content not included)... Normal [facility] HbA1c (Bld) [Mass fraction]o n 10-04-2023 Average glucose Estimated from glycated hemoglobin (Bld) [Mass/Vol] 103 mg/dL Normal Not Established [facility] Comment on above: Order Comment: Diagn osis of Diabetes-Adults Non-Diabetic: < or = 5.6% Increased risk for developing diabetes: 5.7-6.4% Diagnostic of diabetes: > or = 6.5% Performed By: #### 4 548-4 #### ИРИНА Muñoz ([id number]) [facility] ([facility]) [address] [place], [place] [id number] Hemoglobin A1c/Hemoglobin.to haven 10-04-2023 HbA1c (Bld) [Mass fraction] 5.2 % Normal see below [facility] Comment on above: Order Comment: Diagn osis of Diabetes-Adults Non-Diabetic: < or = 5.6% Increased risk for developing diabetes: 5.7-6.4% Diagnostic of diabetes: > or = 6.5% Performed By: #### 4 548-4 #### ИРИНА Muñoz ([id number]) [facility] ([facility]) [address] [place] [address] Lipid 1996 panelon 4 Cholesterol [Mass/Vol] 182 mg/dL Normal 0-199 [facility] Comment on above: Result Comment: Age Desirable Borderline High High 0-19 Y 0 - 169 170 - 199 >/= 200 20-24 Y 0 - 189 190 - 224 >/= 225 >24 Y 0 - 199 200 - 239 >/= 240 All ranges are based on fasting samples. Specific therapeutic targets will vary based on patient-specific cardiac risk. Pediatric guidelines reference:Pediatrics 2011, 128(S5).Adult guidelines reference: NCEP ATPIII Guidelines,ERICK 2001, 258:2486-97 Venipuncture immediately after or during the administration of Metamizole may lead to falsely low results. Testing should be performed immediately prior to Metamizole dosing. Performed By: #### 2 4331-1 #### ИРИНА Muñoz ([id number]) [facility] ([facility]) [id number] [place] [address] Cholesterol in HDL [Mass/Vol] 37.6 mg/dL Normal [facility] Comment on above: Result Comment: Age Very Low Low Normal High 0-19 Y < 35 < 40 40-45 ---- 20-24 Y ---- < 40 >45 ---- >24 Y ---- < 40 40-60 >60 Performed By: #### 2 4331-1 #### ИРИНА Muñoz ([id number]) [facility] ([facility]) [id number] [place] [address] Cholesterol in LDL [Mass/Vol] 110 mg/dL High <=99 [facility] Comment on above: Result Comment: Near Borderline AGE Desirable Optimal High High Very High 0-19 Y 0 - 109 --- 110-129 >/= 130 ---- 20-24 Y 0 - 119 --- 120-159 >/= 160 ---- >24 Y 0 - 99 100-129 130-159 160-189 >/=190 Performed By: #### 2 4331-1 #### ИРИНА Muñoz ([id number]) [facility] ([facility]) [id number] [place] [address] Cholesterol in VLDL [Mass/Vol] 35 mg/dL Normal 0-40 [facility] Comment on above: Performed By: #### 2 4331-1 #### ИРИНА Muñoz ([id number]) [facility] ([facility]) [id number] [place] [address] CHOLESTEROL/HDL RATIO 4.8 Normal [facility] [facility] Comment on above: Result Comment: Ref Values Desirable < 3.4 High Risk > 5.0 Performed By: #### 2 4331-1 #### ИРИНА Muñoz ([id number]) [facility] ([facility]) [id number] [place] [id number] NON HDL CHOLESTEROL 144 mg/dL Normal 0-149 [facility] Comment on above: Result Comment: Age Desirable Borderline High High Very High 0-19 Y 0 - 119 120 - 144 >/= 145 >/= 160 20-24 Y 0 - 149 150 - 189 >/= 190 ---- >24 Y 30 mg/dL above LDL Cholesterol goal Performed By: #### 2 4331-1 #### ИРИНА Muñoz ([id number]) [facility] ([facility]) [address] [place], [place] [id number] Triglyceride [Mass/Vol] 173 mg/dL High 0-149 [facility] Comment on above: Result Comment: Age Desirable Borderline High High Very High 0 D-90 D 19 - 174 ---- ---- ---- 91 D- 9 Y 0 - 74 75 - 99 >/= 100 ---- 10-19 Y 0 - 89 90 - 129 >/= 130 ---- 20-24 Y 0 - 114 115 - 149 >/= 150 ---- >24 Y 0 - 149 150 - 199 200- 499 >/= 500 Venipuncture immediately after or during the administration of Metamizole may lead to falsely low results. Testing should be performed immediately prior to Metamizole dosing. Performed By: #### 2 4331-1 #### ИРИНА Muñoz ([id number]) [facility] ([facility]) [address] [place] [id number] TSH WITH REFLEX TO FREE T4 I F ABNORMALon 10-04-2023 TSH Qn 2.00 m[IU]/L Normal 0.44-3.98 [facility] Comment on above: Order Comment: TSH t esting is performed using different testing methodology at [facility] than at other [facility]. Direct result comparisons should only be made within the same method. Performed By: #### T HYDS #### ИРИНА Muñoz ([id number]) [facility] ([facility]) [address] [place] [address] COLONOSCOPYon 09-29-2023 Colonoscopy Table formatting fro m the original result was not included. Impression 3 subcentimeter polyps were removed The ileocecal valve, ascending colon, hepatic flexure, splenic flexure, descending colon and rectum appeared normal. Findings 5 mm sessile polyp in the sigmoid colon; performed cold snare with complete en bloc removal and retrieved specimen One 5 mm sessile polyp in the mid transverse colon; performed cold snare with complete en bloc removal and retrieved specimen; placed 1 clip successfully (clip is MRI conditional) One sessile polyp measuring smaller than 5 mm in the cecum; performed cold forceps biopsy with complete en bloc removal The ileocecal valve, ascending colon, hepatic flexure, splenic flexure, descending colon and rectum appeared normal. Recommendation Await pathology results Repeat colonoscopy in 1 year, due: 09/28/2024 Inadequate bowel preparation Personal history of colon polyps Indication Colon cancer screening Staff Staff Role Gonzalez Ayers MD Proceduralist Medications No administrations occurring from 0905 to 0936 on 09/29/23 Preprocedure A history and physical has been performed, and patient medication allergies have been reviewed. The patient's tolerance of previous anesthesia has been reviewed. The risks and benefits of the procedure and the sedation options and risks were discussed with the patient. All questions were answered and informed consent obtained. Details of the Procedure The patient underwent monitored anesthesia care, which was administered by an anesthesia professional. The patient's blood pressure, ECG, ETCO2, heart rate, level of consciousness, oxygen and respirations were monitored throughout the procedure. A digital rectal exam was performed. A perianal exam was performed. The scope was introduced through the anus and advanced to the cecum. Retroflexion was performed in the rectum. The quality of bowel preparation was evaluated using the [place] Bowel Preparation Scale with scores of: right colon = 2, transverse colon = 1, left colon = 2. The total BBPS score was 5. Bowel prep was not adequate. The patient's estimated blood loss was minimal (<5 mL). The procedure was not difficult. The patient tolerated the procedure well. There were no apparent adverse events. Events Procedure Events Event Event Time ENDO SCOPE IN TIME 09/29/2023 9:20 AM ENDO CECUM REACHED 09/29/2023 9:25 AM Specimens ID Type Source Tests Collected by Time 1 : cold snare polyp sigmoid colon Tissue COLON - SIGMOID POLYP SURGICAL PATHOLOGY EXAM Gonzalez Ayers MD 09/29/2023 0925 2 : cold bx's polyp cecum Tissue COLON -CECUM POLYP SURGICAL PATHOLOGY EXAM Gonzalez Ayers MD 09/29/2023 0930 3 : cold snare polyp transverse colon Tissue COLON - TRANSVERSE POLYP SURGICAL PATHOLOGY EXAM Gonzalez Ayers MD 09/29/2023 0931 Procedure Location [facility] [address] [facility] [address] Referring Provider Bright Escobedo DO Procedure Provider Gonzalez Ayers MD [facility] Colonoscopy studyon 09-29-19 24 Table formatting fro m the original result was not included. Impression 3 subcentimeter polyps were removed The ileocecal valve, ascending colon, hepatic flexure, splenic flexure, descending colon and rectum appeared normal. Findings 5 mm sessile polyp in the sigmoid colon; performed cold snare with complete en bloc removal and retrieved specimen One 5 mm sessile polyp in the mid transverse colon; performed cold snare with complete en bloc removal and retrieved specimen; placed 1 clip successfully (clip is MRI conditional) One sessile polyp measuring smaller than 5 mm in the cecum; performed cold forceps biopsy with complete en bloc removal The ileocecal valve, ascending colon, hepatic flexure, splenic flexure, descending colon and rectum appeared normal. Recommendation Await pathology results Repeat colonoscopy in 1 year, due: 09/28/2024 Inadequate bowel preparation Personal history of colon polyps Indication Colon cancer screening Staff Staff Role Gonzalez Ayers MD Proceduralist Medications No administrations occurring from 0905 to 0936 on 09/29/23 Preprocedure A history and physical has been performed, and patient medication allergies have been reviewed. The patient's tolerance of previous anesthesia has been reviewed. The risks and benefits of the procedure and the sedation options and risks were discussed with the patient. All questions were answered and informed consent obtained. Details of the Procedure The patient underwent monitored anesthesia care, which was administered by an anesthesia professional. The patient's blood pressure, ECG, ETCO2, heart rate, level of consciousness, oxygen and respirations were monitored throughout the procedure. A digital rectal exam was performed. A perianal exam was performed. The scope was introduced through the anus and advanced to the cecum. Retroflexion was performed in the rectum. The quality of bowel preparation was evaluated using the [place] Bowel Preparation Scale with scores of: right colon = 2, transverse colon = 1, left colon = 2. The total BBPS score was 5. Bowel prep was not adequate. The patient's estimated blood loss was minimal (<5 mL). The procedure was not difficult. The patient tolerated the procedure well. There were no apparent adverse events. Events Procedure Events Event Event Time ENDO SCOPE IN TIME 09/29/2023 9:20 AM ENDO CECUM REACHED 09/29/2023 9:25 AM Specimens ID Type Source Tests Collected by Time 1 : cold snare polyp sigmoid colon Tissue COLON - SIGMOID POLYP SURGICAL PATHOLOGY EXAM Gonzalez Ayers MD 09/29/2023924 2 : cold bx's polyp cecum Tissue COLON -CECUM POLYP SURGICAL PATHOLOGY EXAM Gonzalez Ayers MD 09/29/2023 0930 3 : cold snare polyp transverse colon Tissue COLON - TRANSVERSE POLYP SURGICAL PATHOLOGY EXAM Gonzalez Ayers MD 09/29/2023 0931 Procedure Location [facility] [address] [facility] [id number] Referring Provider Bright Escobedo DO Procedure Provider Gonzalez Ayers MD [facility] Work Phone: [facility] Work Phone: Radiology Study observation (narrative) [facility] Work Phone: Surgical pathology studyon 0 09-29-2023 Surgical pathology study Pathology report.total SEE COMMENT Surgical Pathology Case: [id number] Authorizing Provider: Gonzalez Ayers MD Collected: 09/29/202325 Ordering Location: [facility] Received: 09/29/2023 1233 Pathologist: Eri Hebert MD Specimens: A) - COLON - SIGMOID POLYP, COLD SNARE POLYP SIGMOID COLON B) - COLON -CECUM POLYP, COLD BIOPSY POLYP CECUM C) - COLON - TRANSVERSE POLYP, COLD SNARE POLYP TRANSVERSE COLON Path report.final diagnosis SEE COMMENT A. COLON - SIGMOID POLYP, COLD SNARE BIOPSY: -Colon mucosa with focal superficial hyperplastic changes and lymphoid aggregate. -No dysplasia identified. B. COLON -CECUM POLYP, COLD BIOPSY: -Tubular adenoma. See note. -Melanosis coli. Note: Multiple deeper levels are examined in the evaluation of this specimen. C. COLON - TRANSVERSE POLYP, COLD SNARE BIOPSY: -Tubular adenoma. -Melanosis coli Laboratory comment By the signature on this report, the individual or group listed as making the Final Interpretation/Diagnosis certifies that they have reviewed this case. Path report.gross observation SEE COMMENT A: Received in formalin, labeled with the patient's name and hospital number and 1, sigmoid colon, is 1 fragment of pineda, soft tissue aggregating to 0.7 x 0.5 x 0 point cm. The specimen is submitted in toto in one cassette. JEK/SBS B: Received in formalin, labeled with the patient's name and hospital number and 2, cecum colon polyp, are 2 fragments of pineda, soft tissue aggregating to 0.9 x 0.4 x 0.2 cm. The specimen is submitted in toto in one cassette. JEK/SBS C: Received in formalin, labeled with the patient's name and hospital number and 3, transverse colon polyp, are multiple fragments of pineda, soft tissue aggregating to 0.6 x 0.3 x 0.3 cm. The specimen is submitted in toto in one cassette. 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 Start of test and EOFE criteria met. The two largest DLCO values were not repeatable. Last patient height taken 04/21/2023/NK IMPRESSION: Spirometry is normal. The diffusing capacity is normal. Electronically Signed On 07-20-2023 12:29:43 EDT by Kayode Mckeon MD ID: [id number] Name: KASSANDRA SMITH Race: White Ht: 67.28 in Wt: 198.40 lbs Age: 68 Gender: Female : 1955 Dx: Hypersensitivity pneumonitis_ Smoking Hx: Ex-smoker Doctor: IVAN TALAVERA Test Date: 07/20/2023 Site: [place] Tech: Karoline Brown PRE-BRONCH POST-BRONCH Pre LLN Pred ULN %Pred Post %Pred %Chg SPIROMETRY FVC (L) 2.73 2.29 3.21 4.15 85 FEV1 (L) 1.92 1.75 2.49 3.18 77 FEV1/FVC 0.70 0.66 0.78 0.89 89 PEF L/s (L/sec) 6.72 4.47 6.36 8.25 105 FEF50 (L/sec) 2.33 1.83 3.43 5.04 67 FIF50 (L/sec) 4.08 FEF50/FIF50 0.57 90-100 FIVC (L) 2.60 BNF89-47 (L/sec) 1.03 1.01 2.12 3.67 48 Time (sec) 10.51 FET PEF (sec) 0.10 JOSÉ (L) 0.10 Vol Extrap % (%) 4 LUNG DIFFUSION DLCOunc (ml/min/mmHg) 19.46 15.99 22.15 28.32 87 VA (L) 4.71 4.50 5.60 6.70 84 DLunc/VA (ml/min/mmHg/L) 4.13 2.86 4.18 5.49 98 BHT (sec) 9.73 IVC (L) 2.57 Comments: Current ATS/ERS acceptability and repeatability standards for spirometry met. Start of test and EOFE criteria met. The two largest DLCO values were not repeatable. Last patient height taken 04/21/2023/NK PULMONARY FUNCTION LAB [facility] SPIROMETRY BASELINE ONLYon 0 07-20-2023 DLCO (ml/min/mmHg) 19.46 ml/min/mmHg [facility] DLCO/VA (ml/min/mmHg/L) 4.13 ml/min/mmHg/ L [facility] OLP94-11% PRE (L/S) 1.03 L/S [facility] FEV1 PRE (L) 1.92 L [facility] FEV1/FVC PRE (%) 70 % [facility] FVC PRE (L) 2.73 L [facility] PEF PRE (L/S) 6.72 L/S [facility] VA (L) 4.71 L [facility] LUNG DIFFUSION CAPACITY (MARCO O)on 04-21-2023 [facility] SPIROMETRY - BASELINE AND PO ST DILATORon 04-21-2023 DLCO (ml/min/mmHg) 18.39 ml/min/mmHg [facility] DLCO/VA (ml/min/mmHg/L) 4.23 ml/min/mmHg/L [facility] YFH73-88% POST (L/S) 1.71 L/S [facility] OHT81-76% PRE (L/S) 0.79 L/S [facility] FEV1 PRE (L) 1.79 L [facility] FEV1/FVC POST (%) 74 % [facility] FEV1/FVC PRE (%) 68 % [facility] FEV1_POST (L) 2.04 L [facility] FVC POST (L) 2.76 L [facility] FVC PRE (L) 2.64 L [facility] PEF POST (L/S) 6.69 L/S [facility] PEF PRE (L/S) 6.50 L/S [facility] VA (L) 4.35 L [facility] No Panel Informationon 04-12 No definite acute fracture. Probable diffuse soft tissue swelling. MACRO: None. Signed by: Amy Villalobos 04/12/2023 11:30 AM Dictation workstation: [id number] [facility] Interpreted By: Amy Wu, STUDY: XR FOOT LEFT 3+ VIEWS; XR ANKLE LEFT 3+ VIEWS; 04/12/2023 10:42 am INDICATION: Signs/Symptoms:Left ankle/foot pain after a fall yesterday.. COMPARISON: None. ACCESSION NUMBER(S): [id number]; [id number] ORDERING CLINICIAN: EMANUEL FONSECA FINDINGS: Three views of the left ankle and three views of the left foot obtained. No acute fracture or osseous displacement. The ankle mortise is preserved. Smooth possible remote posttraumatic deformity of the distal aspect of the 4th proximal phalanx. Truncation of the head of the 3rd proximal phalanx with possible fusion across the PIP joint. Spurring along the superior mid foot and along the posterior and inferior margins of the calcaneus. Probable mild diffuse soft tissue swelling. [facility] Amy Villalobos MD - 04/12/2023 Interpreted By: Amy Villalobos, STUDY: XR FOOT LEFT 3+ VIEWS; XR ANKLE LEFT 3+ VIEWS; 04/12/2023 10:42 am INDICATION: Signs/Symptoms:Left ankle/foot pain after a fall yesterday.. COMPARISON: None. ACCESSION NUMBER(S): [id number]; [id number] ORDERING CLINICIAN: EMANUEL FONSECA FINDINGS: Three views of the left ankle and three views of the left foot obtained. No acute fracture or osseous displacement. The ankle mortise is preserved. Smooth possible remote posttraumatic deformity of the distal aspect of the 4th proximal phalanx. Truncation of the head of the 3rd proximal phalanx with possible fusion across the PIP joint. Spurring along the superior mid foot and along the posterior and inferior margins of the calcaneus. Probable mild diffuse soft tissue swelling. IMPRESSION: No definite acute fracture. Probable diffuse soft tissue swelling. MACRO: None. Signed by: Amy Villalobos 04/12/2023 11:30 AM Dictation workstation: [id number] [facility] Work Phone: Radiology Study observation (narrative) [facility] Work Phone: No Panel InformationOrdered By: Amy Villalobos on 04-12-2023 [facility] Work Phone: CT Chest WO contraston 02-02 IMPRESSION: Extensive mosaicism of the lung parenchyma on inspiratory images with loosely clustered centrilobular groundglass opacities; multifocal moderate to severe air trapping on dynamic free breathing images. Obstructive small airway disease with related to air trapping may account for some of these changes (known history of asthma), although constellation of imaging findings as described is suggestive of hypersensitivity pneumonitis without substantial fibrosis. Excessive dynamic airway collapse of the trachea and bilateral mainstem bronchi as well as the bronchus intermedius. Few small lung nodules as described are unchanged from the earliest available CT chest dated 05/27/2021, and possibly benign. No new or enlarging lung nodules. No thoracic lymphadenopathy. Stable indeterminate soft tissue attenuation nodular density in the outer aspect of the right breast. Suggest follow-up with a dedicated breast imaging study if clinically indicated. Grades 9 12 Tutor: PSCAlicia Transcribe Date/Time: Feb 02 2023 1:31P Dictated by : ADI MCDONALD MD This examination was interpreted and the report reviewed and electronically signed by: AID MCDONALD MD on Feb 02 2023 2:02PM [facility]ISION OF RADIOLOGY * * *Final Report* * * DATE OF EXAM: Jan 31 2023 1:23PM [facility]3] 0541 - CT CHEST WO IVCON / PROCEDURE REASON: multiple diagnoses * * * * Physician Interpretation * * * * EXAMINATION: CHEST CT WITHOUT CONTRAST CLINICAL HISTORY: 67-year-old woman with history of asthma/COPD and suspected hypersensitivity pneumonitis Technique: Spiral CT acquisition of the chest from the thoracic inlet to the upper abdomen without contrast. MQ: CTCWO_6 CT Radiation dose: Integrated Dose-length product (DLP) for this visit = 544 mGy*cm CT Dose Reduction Employed: Automated exposure control(AEC) and iterative recon Comparison: CT chest, 10/22/2021 RESULT: Limitations: None. Lines, tubes, and devices: None. Lung parenchyma and airways: There is diffuse mosaicism of the lung parenchyma on inspiratory images with multifocal lobular air trapping in all lung lobes on dynamic free breathing images. There are loosely clustered centrilobular groundglass opacities in the both lungs which alternate with areas of normal/lucent parenchyma (mosaicism). Dynamic free breathing images show multifocal moderate to severe air trapping in all lung lobes. There is a stable tubular nodule measuring approximately 9 x 4 mm in the lateral left lower lobe (image 185) and the 3 x 6 mm nodule along the minor fissure (image 151), which are unchanged from the earliest available CT chest dated 05/27/2021. No new or enlarging lung nodules. Stable thin-walled air-filled cyst/bulla in the posterior right lung base (image 236). Linear opacities suggestive of atelectases are noted in the posterior right lung base and medial left lung base. There is mild bronchiectasis with bronchial wall thickening in the bilateral lower lobes. There is excessive dynamic airway collapse of the trachea and bilateral mainstem bronchi as well as the bronchus intermedius. No endobronchial soft tissue densities in the trachea or major bronchi. Pleural space: No pleural effusion. No pleural thickening. Lower neck, lymph nodes, and mediastinum: The imaged thyroid gland is normal. No lymphadenopathy in the supraclavicular, axillary, mediastinal, or hilar regions. Heart, pericardium, and thoracic vessels: Minimal aortic root calcifications. The thoracic aorta and main pulmonary artery are normal in caliber. The cardiac chambers are normal in size. Minimal coronary artery atherosclerotic calcifications are noted, although the study is not optimized for coronary assessment. No pericardial effusion or thickening. Bones and soft tissues: No destructive bone lesion. Prominent osteophytes in the thoracic spine. Chest wall is unremarkable aside from a stable lenticular shaped soft tissue attenuation nodule measuring approximately 6 x 13 mm deep to the outer aspect of the right breast, possibly an intramammary lymph node (image 140), which is unchanged from the earliest available CT chest dated 05/27/2021. Upper abdomen: Cholecystectomy clips noted. Machine Pie Maker (topogram) images: No additional findings. DIVISION OF RADIOLOGY Provider, [facility] - 02/02/2023 * * *Final Report* * * DATE OF EXAM: Jan 31 2023 1:23PM [facility]3] 0541 - CT CHEST WO IVCON / PROCEDURE REASON: multiple diagnoses * * * * Physician Interpretation * * * * EXAMINATION: CHEST CT WITHOUT CONTRAST CLINICAL HISTORY: 67-year-old woman with history of asthma/COPD and suspected hypersensitivity pneumonitis Technique: Spiral CT acquisition of the chest from the thoracic inlet to the upper abdomen without contrast. MQ: CTCWO_6 CT Radiation dose: Integrated Dose-length product (DLP) for this visit = 544 mGy*cm CT Dose Reduction Employed: Automated exposure control(AEC) and iterative recon Comparison: CT chest, 10/22/2021 RESULT: Limitations: None. Lines, tubes, and devices: None. Lung parenchyma and airways: There is diffuse mosaicism of the lung parenchyma on inspiratory images with multifocal lobular air trapping in all lung lobes on dynamic free breathing images. There are loosely clustered centrilobular groundglass opacities in the both lungs which alternate with areas of normal/lucent parenchyma (mosaicism). Dynamic free breathing images show multifocal moderate to severe air trapping in all lung lobes. There is a stable tubular nodule measuring approximately 9 x 4 mm in the lateral left lower lobe (image 185) and the 3 x 6 mm nodule along the minor fissure (image 151), which are unchanged from the earliest available CT chest dated 05/27/2021. No new or enlarging lung nodules. Stable thin-walled air-filled cyst/bulla in the posterior right lung base (image 236). Linear opacities suggestive of atelectases are noted in the posterior right lung base and medial left lung base. There is mild bronchiectasis with bronchial wall thickening in the bilateral lower lobes. There is excessive dynamic airway collapse of the trachea and bilateral mainstem bronchi as well as the bronchus intermedius. No endobronchial soft tissue densities in the trachea or major bronchi. Pleural space: No pleural effusion. No pleural thickening. Lower neck, lymph nodes, and mediastinum: The imaged thyroid gland is normal. No lymphadenopathy in the supraclavicular, axillary, mediastinal, or hilar regions. Heart, pericardium, and thoracic vessels: Minimal aortic root calcifications. The thoracic aorta and main pulmonary artery are normal in caliber. The cardiac chambers are normal in size. Minimal coronary artery atherosclerotic calcifications are noted, although the study is not optimized for coronary assessment. No pericardial effusion or thickening. Bones and soft tissues: No destructive bone lesion. Prominent osteophytes in the thoracic spine. Chest wall is unremarkable aside from a stable lenticular shaped soft tissue attenuation nodule measuring approximately 6 x 13 mm deep to the outer aspect of the right breast, possibly an intramammary lymph node (image 140), which is unchanged from the earliest available CT chest dated 05/27/2021. Upper abdomen: Cholecystectomy clips noted. Machine Pie Maker (topogram) images: No additional findings. IMPRESSION IMPRESSION: Extensive mosaicism of the lung parenchyma on inspiratory images with loosely clustered centrilobular groundglass opacities; multifocal moderate to severe air trapping on dynamic free breathing images. Obstructive small airway disease with related to air trapping may account for some of these changes (known history of asthma), although constellation of imaging findings as described is suggestive of hypersensitivity pneumonitis without substantial fibrosis. Excessive dynamic airway collapse of the trachea and bilateral mainstem bronchi as well as the bronchus intermedius. Few small lung nodules as described are unchanged from the earliest available CT chest dated 05/27/2021, and possibly benign. No new or enlarging lung nodules. No thoracic lymphadenopathy. Stable indeterminate soft tissue attenuation nodular density in the outer aspect of the right breast. Suggest follow-up with a dedicated breast imaging study if clinically indicated. Grades 9 12 Tutor: TIM Transcribe Date/Time: Feb 02 2023 1:31P Dictated by : ADI MCDONALD MD This examination was interpreted and the report reviewed and electronically signed by: ADI MCDONALD MD on Feb 02 2023 2:02PM EST [facility] CT Chest WO contrastOrdered By: Ccf Provider on 02-02-2023 [facility] CT Chest WO contraston 01-31 Radiology Study observation (narrative) [facility] LUNG DIFFUSION CAPACITY (MARCO O)on 11-25-2022 DLCO (ml/min/mmHg) 16.64 ml/min/mmHg [facility] DLCO/VA (ml/min/mmHg/L) 4.11 ml/min/mmHg/L [facility] XVY09-83% PRE (L/S) 0.74 L/S [facility] FEV1 PRE (L) 1.59 L [facility] FEV1/FVC PRE (%) 67 % [facility] FVC PRE (L) 2.36 L [facility] PEF PRE (L/S) 6.59 L/S [facility] VA (L) 4.05 L [facility] SPIROMETRY BASELINE ONLYon 1 [facility] XR Chest PA and Lateralon IMPRESSION: Stable exam with no acute radiographic abnormality. Grades 9 12 Tutor: TIM Transcribe Date/Time: May 13 2022 10:11A Dictated by : GABRIELA RAZA MD This examination was interpreted and the report reviewed and electronically signed by: GABRIELA RAZA MD on May 13 2022 10:12AM [facility] * * *Final Report* * * DATE OF EXAM: May 12 2022 11:14AM CCX 5291 - XR CHEST 2V FRONTAL/LAT / PROCEDURE REASON: Dyspnea, unspecified type * * * * Physician Interpretation * * * * EXAMINATION: CHEST RADIOGRAPH (2 VIEW FRONTAL & LATERAL) CLINICAL HISTORY: Dyspnea, unspecified type MQ: XC2_6 EXAM DATE/TIME: 05/12/2022 11:14 AM COMPARISON: Chest radiograph dated 05/26/2021 RESULT: Lines, tubes, and devices: None. Lungs and pleura: Hyperinflated lungs. No focal lung consolidation. No significant pleural effusion or pneumothorax. Cardiomediastinal silhouette: Stable cardiomediastinal silhouette. Bones and soft tissues: Degenerative changes are present within the thoracic spine. DIVISION OF RADIOLOGY Provider, Asad Corona - 05/13/2022 * * *Final Report* * * DATE OF EXAM: May 12 2022 11:14AM CCX 5291 - XR CHEST 2V FRONTAL/LAT / PROCEDURE REASON: Dyspnea, unspecified type * * * * Physician Interpretation * * * * EXAMINATION: CHEST RADIOGRAPH (2 VIEW FRONTAL & LATERAL) CLINICAL HISTORY: Dyspnea, unspecified type MQ: XC2_6 EXAM DATE/TIME: 05/12/2022 11:14 AM COMPARISON: Chest radiograph dated 05/26/2021 RESULT: Lines, tubes, and devices: None. Lungs and pleura: Hyperinflated lungs. No focal lung consolidation. No significant pleural effusion or pneumothorax. Cardiomediastinal silhouette: Stable cardiomediastinal silhouette. Bones and soft tissues: Degenerative changes are present within the thoracic spine. IMPRESSION IMPRESSION: Stable exam with no acute radiographic abnormality. Grades 9 12 Tutor: PSCB Transcribe Date/Time: May 13 2022 10:11A Dictated by : GABRIELA RAZA MD This examination was interpreted and the report reviewed and electronically signed by: GABRIELA RAZA MD on May 13 2022 10:12AM EST [facility] XR Chest PA and LateralOrder ed By: Cc Provider on 05-13-2022 [facility] LUNG DIFFUSION CAPACITY (MARCO O)on 05-12-2022 DLCO (ml/min/mmHg) 17.40 ml/min/mmHg [facility] DLCO/VA (ml/min/mmHg/L) 3.88 ml/min/mmHg/L [facility] YJG02-94% PRE (L/S) 1.02 L/S [facility] FEV1 PRE (L) 1.93 L [facility] FEV1/FVC PRE (%) 69 % [facility] FVC PRE (L) 2.79 L [facility] PEF PRE (L/S) 6.71 L/S [facility] VA (L) 4.48 L [facility] SPIROMETRY BASELINE ONLYon 0 3-30-2023 [facility] XR Chest PA and Lateralon Radiology Study observation (narrative) [facility] Office Visit (Cardiology)on 11-09-2021 Follow-up visit Diagnoses/Problems Assessed Hypercholesterolemia (272.0) (E78.00) Dr. Hall Exertional shortness of breath (786.05) (R06.02) Asthma (493.90) (J45.909) Former smoker (V15.82) (Z87.891) Pulmonary hypertension (416.8) (I27.20) mild Orders Exertional shortness of breath IO EKG Electrocardiogram- 12 Lead; Status:Active - Perform Order; Requested for:09Nov2021; Unlinked Stop: Furosemide 20 MG Oral Tablet Stop: Potassium Chloride ER 10 MEQ Oral Tablet Extended Release Patient Instructions 1. Shortness of breath. Evidently normal coronary arteries on a catheterization May 2021 at [facility]. Stress echo here June 2019 unremarkable. Infiltrates noted on her chest x-ray. Being evaluated by pulmonary medicine. Clinically symptoms of shortness of breath. Be more pulmonary related. Blood pressures are quite low. 2. She is on Lasix and potassium. Its not clear to me why this was started. I will get the records from Dr. Fuentes her [facility] mobile lab technician. At this point given her low blood pressure, and the lack of symptomatic improvement on Lasix I will stop the Lasix and the potassium. I reviewed all her records online. Her catheterization indeed revealed normal coronary arteries with mild pulmonary hypertension. Her echo was entirely normal. From a cardiac standpoint she is doing fine. I will stop her Lasix and potassium. She will follow-up with her [employer] rep. I will see her in the future as needed History of Present Illness I am seeing Kassandra at the request of Dr. Harris in the evaluation of shortness of breath. Kassandra is 66. In the last year due to she was diagnosed with shortness of breath likely due to asthma. She was admitted to [facility] in May. At that point she underwent cardiac catheterization evidently revealing normal coronary arteries. In follow-up with her [facility] mobile lab technician she was placed on Lasix and potassium for unclear reasons. She tells me she feels the same as she did before she was on the Lasix. She has not had any lower extremity edema. Her breathing is not better or worse. She wants to switch to the system and therefore came in for another evaluation. Active Problems [facility] Asthma (493.90) (J45.909) Exertional shortness of breath (786.05) (R06.02) Hypercholesterolemia (272.0) (E78.00) Dr. Hall Pulmonary hypertension (416.8) (I27.20) mild Surgical History Problems History of Section History of Gallbladder Surgery Current Meds Medication NameInstruction Advair HFA 115-21 MCG/ACT Inhalation AerosolINHALE 2 PUFFS INSTRUCTED TWICE DAILY. Albuterol Sulfate HFA 108 (90 Base) MCG/ACT Inhalation Aerosol SolutionINHALE 1 TO 2 PUFFS BY MOUTH EVERY 4 TO 6 HOURS NEEDED Atorvastatin Calcium 80 MG Oral TabletTAKE ONE TABLET BY MOUTH ONCE DAILY Citalopram Hydrobromide 40 MG Oral TabletTAKE 1 TABLET DAILY. Furosemide 20 MG Oral TabletTAKE 1 TABLET BY MOUTH EVERY DAY Oxybutynin Chloride 5 MG Oral TabletTake 1 tablet twice daily Potassium Chloride ER 10 MEQ Oral Tablet Extended Release Allergies Medication No Known Drug Allergies Recorded By: Roxanne Adams; 11/11/2015 1:23:41 PM Family History Mother Family history of Diabetes type 2, controlled Family history of congestive heart failure (V17.49) (Z82.49) Mom CHF 70's Family history of hypertension (V17.49) (Z82.49) Aunt Family history of malignant neoplasm of breast (V16.3) (Z80.3) Social History Problems Former smoker (V15.82) (Z87.891) 1979' No advance directives (V49.89) (Z78.9) No alcohol use No illicit drug use Retired Single Review of Systems 10 systems reviewed and are negative other than what is mentioned above Vitals Vital Signs Recorded: [id number] 09:07AM Heart Rate71 Zspwhvjo45, LUE, Sitting Jblfajthv43, LUE, Sitting Height5 ft 7 in Dogfdd658 lb BMI Krhxbnuyut82.88 kg/m2 BSA Calculated1.92 O2 Ymtwafvkgw20 Physical Exam Gen. the patient is alert and oriented 3. No distress. Pleasant disposition. Mucous membranes are moist. No arcus senilis is noted. Neck there is no JVP at 30. No bruits are heard. No thyromegaly. Lungs are clear bilaterally. Heart regular rhythm normal S1 and S2 there is no S3. No murmurs. Abdomen is soft bowel sounds are positive nontender nondistended. No organomegaly no pulsatile masses. Extremities have no edema. Femoral pulses are palpable distal pulses are palpable neuro nonfocal skin or rashes Procedure Cath May 2021 Normal cors. Mild PHTN Echo 05/2021 EF 65% no other abnormalities noted STRESS ECHO [12/05/2019]: 4m 32s (6.40 METs) = Mildly decreased exercise tolerance. Negative stress echo for ischemia. 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 Visiton 10-14 LEAD SECURITY OFFICER - Office Visit Diagnoses/Problems Assessed Vulvar dystrophy (624.09) (N90.4) Stress incontinence, female (625.6) (N39.3) Vaginal discharge (623.5) (N89.8) Orders Gynecologic Urology Evaluation and Treatment Evaluate AND Treat Status: Hold For - Scheduling Requested for: 01Nov2021 VAGINITIS GRAM STAIN FOR BACTERIAL VAGINOSIS + YEAST; Status:Hold For - Specimen/Data Collection; Requested for:01Nov2021; Renew: Clobetasol Propionate 0.05 % External Ointment; APPLY SPARINGLY TO AFFECTED AREAS TWICE DAILY Patient Discussion/Summary Vaginitis, small amount d/c noted in vagina: culture obtained, will treat as indicated Suspect possible yeast infection Vulvar dysplasia skin changes, 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 Start clobetasol ointment to areas affected BID, may also do sitz baths prior to application. Rx may need prior auth. STD screening: declines, not SA Any new medications given to the patient have been explained as to directions, reasons for prescribing and side effects. Perineal hygiene and safe sex were discussed with the patient Stress incontinence for years, wearing pads daily, discussed seeing UroGyn for eval and treatment as it can also cause skin breakdown. Consult ordered. 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 Referred by Dr. Hall Has used witch bryan and monistat cream without much relief. If scratching a lot, will make labias bleed. Denies any vaginal bleeding or discharge. h/o x1, has been leaking for years, mostly due to cough or sneeze. Wearing pads daily Vaginal discharge: none, no odor Itching: all outer skin Dyspareunia: no, not SA Fever/chills: no Abdominal pain: no Bladder: Negative for dysuria or frequency Bowel: No blood in stool, pain with BM, tarry stool, persistent diarrhea or constipation Any new sexual partners or concern for STD exposure: n/a Any history of STDs: no Does your partner have any new complaints: n/a Are you currently taking any medications to treat vaginitis: see above Do you use feminine sprays, douches or deodorants: no Menopause: mid-50s, never HRT Last pap: 7 years ago, normal, never abnormal Review of Systems Abdomen: No abdominal pain, nausea, vomiting, diarrhea, or constipation. No bloating, early satiety, indigestion, or increased flatulence. Bladder: No dysuria, gross hematuria, urinary frequency, urinary urgency, + stress incontinence for years, wearing pads daily Allergies and current medication updated: Yes Active Problems Problems Abnormal mammogram (793.80) (R92.8) Breast cancer screening (V76.10) (Z12.39) Colon cancer screening (V76.51) (Z12.11) Depression with anxiety (300.4) (F41.8) Dry skin (701.1) (L85.3) Eczema (692.9) (L30.9) Encounter for immunization (V03.89) (Z23) Encounter for long-term (current) drug use (V58.69) (Z79.899) Encounter for screening mammogram for breast cancer (V76.12) (Z12.31) Exertional angina (413.9) (I20.8) Exertional shortness of breath (786.05) (R06.02) High cholesterol (272.0) (E78.00) Intertrigo (695.89) (L30.4) Medicare annual wellness visit, initial (V70.0) (Z00.00) Overactive bladder (596.51) (N32.81) Vaginal itching (698.1) (N89.8) Surgical History Problems History of Section History of Gallbladder Surgery Family History Mother Family history of Diabetes type 2, controlled Family history of congestive heart failure (V17.49) (Z82.49) Family history of hypertension (V17.49) (Z82.49) Aunt Family history of malignant neoplasm of breast (V16.3) (Z80.3) Social History Problems Former smoker (V15.82) (Z87.891) No advance directives (V49.89) (Z78.9) No alcohol use No illicit drug use Retired Single Allergies Medication No Known Drug Allergies Recorded By: Roxanne Adams; 11/11/2015 1:23:41 PM Current Meds Medication NameInstruction Advair HFA 115-21 MCG/ACT Inhalation AerosolINHALE 2 PUFFS INSTRUCTED TWICE DAILY. Advair HFA 230-21 MCG/ACT Inhalation AerosolINHALE 2 PUFFS INSTRUCTED TWICE DAILY. Albuterol Sulfate (2.5 MG/3ML) 0.083% Inhalation Nebulization SolutionUSE 3 ML VIA NEBULIZER EVERY 4 HOURS NEEDED FOR WHEEZING/SHORTNESS OF BREATH. Albuterol Sulfate HFA 108 (90 Base) MCG/ACT Inhalation Aerosol SolutionINHALE 1 TO 2 PUFFS BY MOUTH EVERY 4 TO 6 HOURS NEEDED Atorvastatin Calcium 80 MG Oral TabletTAKE ONE TABLET BY MOUTH ONCE DAILY Calcium 600 MG TABSTAKE 1 TABLET DAILY. Citalopram Hydrobromide 40 MG Oral TabletTAKE 1 TABLET DAILY. Fluticasone-Salmeterol 113-14 MCG/ACT Inhalation Aerosol Powder Breath ActivatedINHALE 1 INHALATION INSTRUCTED TWICE DAILY. Furosemide 20 MG (more content not included)... [facility] Screening.on 022 Fall risk assessment a) No falls within the last year [employer] 6[address] Work Phone: Last menstrual period start date post menopausal [facility] [address] Work Phone: Tobacco use status [facility] b) No [facility] 6[address] Work Phone: CT Chest WO contraston 10-22 IMPRESSION: 1. Bilateral parenchymal abnormalities in a pattern compatible with chronic hypersensitivity pneumonitis given lobular air trapping. 2. Improving atelectasis at lung bases. 3. Excessive dynamic airway collapse. Grades 9 12 Tutor: TIM Transcribe Date/Time: Oct 22 2021 1:15P Dictated by : CHRISTIE VERDE MD This examination was interpreted and the report reviewed and electronically signed by: CHRISTIE VERDE MD on Oct 22 2021 1:21PM [facility] * * *Final Report* * * DATE OF EXAM: Oct 22 2021 1:10PM [facility]3] 0541 - CT CHEST WO IVCON / PROCEDURE REASON: Interstitial pulmonary disease (HCC) * * * * Physician Interpretation * * * * EXAMINATION: CHEST CT WITHOUT CONTRAST CLINICAL HISTORY: Interstitial pulmonary disease (HCC) Technique: Spiral CT acquisition of the chest from the thoracic inlet to the upper abdomen without contrast. MQ: CTCWO_6 CT Radiation dose: Integrated Dose-length product (DLP) for this visit = 293 mGy*cm CT Dose Reduction Employed: Automated exposure control (AEC) Comparison: 05/27/2021 RESULT: Limitations: None. Lines, tubes, and devices: None. Lung parenchyma and airways: Improving atelectasis at the lung bases. Unchanged mild traction bronchiectasis in both lower peripheral lungs. No honeycombing. Patchy groundglass opacities are present in left lung base around image 211. There is mosaic attenuation in both lungs which accentuates on free breathing in keeping with air trapping. There is also excessive dynamic airway collapse. Stable branching nodule in left lower lobe measuring approximately 7 mm on image 186, likely a mucous plug. There are no new or growing lung nodules. Pleural space: No pleural effusion. No pleural thickening. Lower neck, lymph nodes, and mediastinum: Partially visualized thyroid gland contains heterogenous low attenuation nodules, likely a goiter. No lymph node enlargement in the thorax. Heart, pericardium, and thoracic vessels: The thoracic aorta and main pulmonary artery are normal in caliber. The cardiac chambers are normal in size. No coronary artery atherosclerotic calcifications are noted, although the study is not optimized for coronary assessment. No pericardial effusion or thickening. Bones and soft tissues: No destructive bone lesion. Chest wall is unremarkable. Upper abdomen: No abnormality in the imaged upper abdomen. Machine Pie Maker (topogram) images: No additional findings. DIVISION OF RADIOLOGY Provider, [facility] - 10/22/2021 * * *Final Report* * * DATE OF EXAM: Oct 22 2021 1:10PM [facility]3] 0541 - CT CHEST WO IVCON / PROCEDURE REASON: Interstitial pulmonary disease (HCC) * * * * Physician Interpretation * * * * EXAMINATION: CHEST CT WITHOUT CONTRAST CLINICAL HISTORY: Interstitial pulmonary disease (HCC) Technique: Spiral CT acquisition of the chest from the thoracic inlet to the upper abdomen without contrast. MQ: CTCWO_6 CT Radiation dose: Integrated Dose-length product (DLP) for this visit = 293 mGy*cm CT Dose Reduction Employed: Automated exposure control (AEC) Comparison: 05/27/2021 RESULT: Limitations: None. Lines, tubes, and devices: None. Lung parenchyma and airways: Improving atelectasis at the lung bases. Unchanged mild traction bronchiectasis in both lower peripheral lungs. No honeycombing. Patchy groundglass opacities are present in left lung base around image 211. There is mosaic attenuation in both lungs which accentuates on free breathing in keeping with air trapping. There is also excessive dynamic airway collapse. Stable branching nodule in left lower lobe measuring approximately 7 mm on image 186, likely a mucous plug. There are no new or growing lung nodules. Pleural space: No pleural effusion. No pleural thickening. Lower neck, lymph nodes, and mediastinum: Partially visualized thyroid gland contains heterogenous low attenuation nodules, likely a goiter. No lymph node enlargement in the thorax. Heart, pericardium, and thoracic vessels: The thoracic aorta and main pulmonary artery are normal in caliber. The cardiac chambers are normal in size. No coronary artery atherosclerotic calcifications are noted, although the study is not optimized for coronary assessment. No pericardial effusion or thickening. Bones and soft tissues: No destructive bone lesion. Chest wall is unremarkable. Upper abdomen: No abnormality in the imaged upper abdomen. Machine Pie Maker (topogram) images: No additional findings. IMPRESSION IMPRESSION: 1. Bilateral parenchymal abnormalities in a pattern compatible with chronic hypersensitivity pneumonitis given lobular air trapping. 2. Improving atelectasis at lung bases. 3. Excessive dynamic airway collapse. Grades 9 12 Tutor: [facility] Transcribe Date/Time: Oct 22 2021 1:15P Dictated by : CHRISTIE VERDE MD This examination was interpreted and the report reviewed and electronically signed by: CHRISTIE VERDE MD on Oct 22 2021 1:21PM EST [facility] Radiology Study observation (narrative) [facility] CT Chest WO contrastOrdered By: Ccf Provider on 10-22-2021 [facility] NITRIC OXIDE, EXHALEDon 09-0 [facility] SPIROMETRY BASELINE ONLYon 0 10-22-2021 FES16-34% PRE (L/S) 1.16 L/S [facility] FEV1 PRE (L) 1.91 L [facility] FEV1/FVC PRE (%) 72 % [facility] FVC PRE (L) 2.67 L [facility] PEF PRE (L/S) 6.71 L/S [facility] DIGITAL DIAG MAMM RIGHT UNIL W/ TOMOon 09-07-2021 DIGITAL DIAG MAMM RIGHT UNIL W/ MATY Patient Name: KASSANDRA SMITH STUDY: DIGITAL DIAG MAMM RIGHT UNIL W/ MATY; BREAST ULTRASOUND; 09/07/2021 8:48 am; 09/07/2021 9:31 am ACCESSION NUMBER(S): [id number]; [id number] ORDERING CLINICIAN: NATY HALL INDICATION: right breast architectural distortion R92.8: Abnormal mammogram. COMPARISON: Screening mammogram 08/17/2021, mammogram 01/03/2018 FINDINGS: MAMMOGRAPHY: 2D and tomosynthesis images were reviewed at 1 mm slice thickness. Spot compression, true lateral, and exaggerated CC views obtained. There are scattered areas of fibroglandular density. Asymmetry/distortion superiorly appears less pronounced on additional views. Several nodular densities superiorly and laterally in the left breast appear unchanged since prior study of 01/03/2018. No definite additional new suspicious masses or calcifications are otherwise identified. ULTRASOUND: Sonographic evaluation of the right breast was performed with attention to the superior aspect. Some dense fibroglandular tissue noted. No focal suspicious cystic or solid lesions are demonstrated. IMPRESSION: Right breast asymmetry probably relates to superimposition of glandular tissue. Suggest short interval six-month follow-up mammography to evaluate stability. BI-RADS CATEGORY: Category: 3 - Probably Benign. Recommendation: 6 Month Follow-up. Patient letter sent SSHORT For any future breast imaging appointments, please call [phone]). Electronically signed by: LEX SPARKS, DO [facility] Radiologyon 09-07-2021 MG Breast Screening Normal [facility] Work Phone: ULTRASOUND LIMITED BREASTon 09-07-2021 ULTRASOUND LIMITED BREAST Patient Name: KASSANDRA SMITH STUDY: DIGITAL DIAG MAMM RIGHT UNIL W/ MATY; BREAST ULTRASOUND; 09/07/2021 8:48 am; 09/07/2021 9:31 am ACCESSION NUMBER(S): [id number]; [id number] ORDERING CLINICIAN: NATY HALL INDICATION: right breast architectural distortion R92.8: Abnormal mammogram. COMPARISON: Screening mammogram 08/17/2021, mammogram 01/03/2018 FINDINGS: MAMMOGRAPHY: 2D and tomosynthesis images were reviewed at 1 mm slice thickness. Spot compression, true lateral, and exaggerated CC views obtained. There are scattered areas of fibroglandular density. Asymmetry/distortion superiorly appears less pronounced on additional views. Several nodular densities superiorly and laterally in the left breast appear unchanged since prior study of 01/03/2018. No definite additional new suspicious masses or calcifications are otherwise identified. ULTRASOUND: Sonographic evaluation of the right breast was performed with attention to the superior aspect. Some dense fibroglandular tissue noted. No focal suspicious cystic or solid lesions are demonstrated. IMPRESSION: Right breast asymmetry probably relates to superimposition of glandular tissue. Suggest short interval six-month follow-up mammography to evaluate stability. BI-RADS CATEGORY: Category: 3 - Probably Benign. Recommendation: 6 Month Follow-up. Patient letter sent SSHORT For any future breast imaging appointments, please call [phone]). Electronically signed by: LEX SPARKS DO [facility] Ultrasound Limited [place] 09-07-2021 MG Breast Screening Normal [facility] Work Phone: DIGITAL MAMM SCREENING W/ TO Burt[place] 08-17-2021 DIGITAL MAMM SCREENING W/ MATY Patient Name: KASSANDRA SMITH STUDY: 08/17/2021 2:50 pm ACCESSION NUMBER(S): [id number] ORDERING CLINICIAN: NATY HALL INDICATION: Screening. Positive history breast carcinoma in a maternal aunt in her 70s Past use hormonal contraceptives for few years COMPARISON: 01/03/2018, no other studies for comparison FINDINGS: The breast parenchyma is scattered in density. BREAST DENSITY CATEGORY: B Examination was performed using 2D digital and 3D digital tomosynthesis imaging. There is architectural distortion superiorly in the right breast on the MLO view middle depth for which spot compression view is recommended in the MLO projection as well as a true lateral and rolled CC views No suspicious mass, skin thickening, tumoral calcifications or axillary adenopathy is identified. There are subcentimeter masses in the upper outer quadrant of the right breast consistent with intramammary lymph nodes. There is a stable 4.2 cm macrolobular dense smooth nodule in the upper outer quadrant of the right breast posterior depth. This has been stable compared to the prior study from 01/03/2018. Stability over 4 years suggests a benign nodule. There are benign coarse calcifications. There are scattered punctate benign-appearing microcalcifications. This study was interpreted with CAD. IMPRESSION: 1. Right breast architectural distortion; additional diagnostic views. 2. No malignancy left breast. BI-RADS CATEGORY: Category: 0 - Incomplete; Need Additional Imaging Evaluation and/or Prior Mammograms for Comparison. Recommendation: Additional Views. Patient letter sent SNORM Electronically signed by: MELCHOR FOLEY MD Normal [facility] Mamm - Screening Mammogram w / Tomosynthesison 08-17-2021 MG Breast Screening Normal [facility] 1057 Work Phone: OXIMETRY WITH AMBULATIONon 0 08-13-2021 [facility] Medicare Annual Wellness Vis iton 08-09-2021 Medicare Annual Wellness Visit *Chief Complaint Medicare annual wellness exam History of Present Illness The patient is being seen for the initial annual wellness visit. Past Medical, Surgical and Family History: reviewed and updated in chart. Medications and Supplements: Review of all medications by a prescribing practitioner or clinical pharmacist (such as prescriptions, OTCs, herbal therapies and supplements) documented in the medical record. No, the patient is not using opioids. Tobacco use: Non-User Alcohol use: Non-User Illicit drug use: Non-User Current diet: well balanced diet. Exercise Frequency: infrequently. Depression/Suicide Screening: Patient has a current diagnosis of depression. Stable on citalopram Hearing Impairment: none. Cognitive Impairment: No cognitive impairment observed. Bathing: performs independently. Dressing: performs independently. Walking: performs independently. Managing Finances: performs independently. Shopping: performs independently. Managing Medications: performs independently. Housework / Basic Home Maintenance: performs independently. Falls Risk Screening:. KASSANDRA has not fallen in the last 6 months. Home safety risk factors: none. Additional Information: Full Code. Here for Medicare wellness visit. Due for mammogram, colonoscopy, and pneumonia vaccine. Also mentions chronic vaginal itching and recent work-up due to shortness of breath. Was experiencing shortness of breath for the past few months. Undergoing workup with pulmonology. Does have birds. Possible pneumonitis. Was also recommended to follow up with cardiology. Planning to see Dr Jamison. Review of Systems Constitutional: feeling tired, but not feeling poorly. Cardiovascular: tightness or heavy pressure and shortness of breath. Respiratory: shortness of breath during exertion. Gastrointestinal: no change in bowel habits. Skin: no rashes. Neurological: no headaches and no dizziness. Psychiatric: anxiety. *Active Problems Breast cancer screening (V76.10) (Z12.39) Colon cancer screening (V76.51) (Z12.11) Depression with anxiety (300.4) (F41.8) Dry skin (701.1) (L85.3) Eczema (692.9) (L30.9) Encounter for long-term (current) drug use (V58.69) (Z79.899) Encounter for screening mammogram for breast cancer (V76.12) (Z12.31) Exertional shortness of breath (786.05) (R06.02) High cholesterol (272.0) (E78.00) Intertrigo (695.89) (L30.4) Overactive bladder (596.51) (N32.81) Surgical History History of Section History of Gallbladder Surgery Family History Family history of Diabetes type 2, controlled Family history of congestive heart failure (V17.49) (Z82.49) Family history of hypertension (V17.49) (Z82.49) Family history of malignant neoplasm of breast (V16.3) (Z80.3) Social History Former smoker (V15.82) (Z87.891) No advance directives (V49.89) (Z78.9) No alcohol use No illicit drug use Retired Single *Allergies No Known Drug Allergies Recorded By: Roxanne Adams; 11/11/2015 1:23:41 PM *Current Meds Medication NameInstruction Albuterol Sulfate HFA 108 (90 Base) MCG/ACT Inhalation Aerosol SolutionINHALE 1 TO 2 PUFFS BY MOUTH EVERY 4 TO 6 HOURS NEEDED Atorvastatin Calcium 80 MG Oral TabletTAKE ONE TABLET BY MOUTH ONCE DAILY Calcium 600 MG TABSTAKE 1 TABLET DAILY. Citalopram Hydrobromide 40 MG Oral TabletTAKE 1 TABLET DAILY. Clotrimazole 1 % External CreamAPPLY SPARINGLY to affected area twice a day Fluconazole 150 MG Oral TabletTAKE 1 TABLET weekly for 4 weeks Ocuvite Extra Oral TabletTAKE 1 TABLET DAILY. Oxybutynin Chloride 5 MG Oral TabletTake 1 tablet twice daily Immunizations Influenza --- Series1: 02-Nov-2016; Series2: Oct 26 2019 12:00AM; Series3: Dec 14 2020 12:00AM [employer] COVID-19 Vacc 30 MCG/0.3ML Intramuscular Suspension --- Series1: May 03 2020 12:00AM; Series2: May 24 2020 12:00AM; Series3: Jan 20 2021 12:00AM Tdap --- Series1: 02-Nov-2016 Patient Care Team Care Team MemberRoleSpecialtyOffice Number Naty Hall DO [facility] Care ProviderInternal [phone] Severo Dickens MDInternal [phone] Severo Dickens MD [facility] [phone] [phone] Vitals Vital Signs Recorded: 09Aug2021 01:36PM Prhsebqgsuc06 F Heart Rate71 Cuccuslu805 Enxsrzmvg37 Height5 ft 7 in Vbdmvn522 lb BMI Atwbeoeapp63.1 kg/m2 BSA Calculated1.9 O2 Fceuvajoxq79 Physical Exam Constitutional General appearance: Alert and in no acute distress. Eyes Inspection of eyes: Sclera and conjunctiva were normal. Pulmonary Respiratory assessment: No respiratory distress, normal respiratory rhythm and effort. Auscultation of Lungs: Clear bilateral breath sounds. Cardiovascular Auscultation of heart: Apical pulse normal, heart rate and rhythm normal, normal S1 and S2, no murmurs and no pericardial rub. Musculoskeletal Examination of gait: Normal. Skin Skin inspection: No (more content not included)... Normal [facility]works No Panel Informationon 07-19 VLD35-49% POST (L/S) 0.92 L/S [facility] UTO24-58% PRE (L/S) 0.52 L/S [facility] FEV1 PRE (L) 1.60 L [facility] FEV1/FVC POST (%) 0.69 % [facility] FEV1/FVC PRE (%) 0.63 % [facility] FEV1_POST (L) 1.76 L [facility] FVC POST (L) 2.57 L [facility] FVC PRE (L) 2.55 L [facility] PEF POST (L/S) 6.82 L/S [facility] PEF PRE (L/S) 5.99 L/S [facility] ARTERIAL BLOOD GASESon 05-28 Base excess Calc (Bld) [Moles/Vol] 3 mmol/L High 0-2 [facility] Comment on above: Order Comment: Speci men Type: ARTERIAL BLOOD SPECIMEN Ordering Facility: [facility] Address: [address] [place] [phone] Performed By: #### A LLBG #### [facility] CLIA [id number] [facility] [address] [place] [address] Body temperature 98.6 [degF] Normal [facility] Comment on above: Order Comment: Speci men Type: ARTERIAL BLOOD SPECIMEN Ordering Facility: [facility] Address: [address] [place] [address] Performed By: #### A LLBG #### [facility] CLIA [id number] [facility] [address] [place] [address] Calcium.ionized (Bld) [Mass/Vol] 1.18 mmol/L Normal 1.08-1.30 [facility] Comment on above: Order Comment: Speci men Type: ARTERIAL BLOOD SPECIMEN Ordering Facility: [facility] Address: [address] [place] [address] Performed By: #### A LLBG #### [facility] CLIA [id number] [facility] [address] [place] [address] Carboxyhemoglobin (BldA) [Mass fraction] 1.0 % Normal 0.0-2.0 [facility] Comment on above: Order Comment: Speci men Type: ARTERIAL BLOOD SPECIMEN Ordering Facility: [facility] Address: [address] [place] [address] Result Comment: Carb oxyhemoglobin Reference Range for Smokers: 2.0-8.0% Performed By: #### A LLBG #### [facility] CLIA [id number] [facility] [address] [place], [place] [id number] Chloride [Moles/Vol] 109 mmol/L High 97-105 [facility] Comment on above: Order Comment: Speci men Type: ARTERIAL BLOOD SPECIMEN Ordering Facility: [facility] Address: [address] [place] [address] Performed By: #### A LLBG #### [facility] CLIA [id number] [facility] [address] [place] [address] CO2 (Bld) [Partial pressure] 45 mm Hg Normal 36-46 [facility] Comment on above: Order Comment: Speci men Type: ARTERIAL BLOOD SPECIMEN Ordering Facility: [facility] Address: [address] [place] [address] Performed By: #### A LLBG #### [facility] CLIA [id number] [facility] [address] [place] [address] HCO3 (Bld) [Moles/Vol] 28 mmol/L High 22-26 [facility] Comment on above: Order Comment: Speci men Type: ARTERIAL BLOOD SPECIMEN Ordering Facility: [facility] Address: [address] [place] [address] Performed By: #### A LLBG #### [facility] CLIA [id number] [facility] [address] [place] [address] Hemoglobin (Bld) [Mass/Vol] 14.4 g/dL Normal 11.5-15.5 [facility] Comment on above: Order Comment: Speci men Type: ARTERIAL BLOOD SPECIMEN Ordering Facility: [facility] Address: [address] [place] [address] Performed By: #### A LLBG #### [facility] CLIA [id number] [facility] [address] [place] [address] Lactate [Moles/Vol] 0.9 mmol/L Normal 0.5-2.2 [facility] Comment on above: Order Comment: Speci men Type: ARTERIAL BLOOD SPECIMEN Ordering Facility: [facility] Address: [address] [place] [address] Performed By: #### A LLBG #### [facility] CLIA [id number] [facility] [address] [place] [address] Methemoglobin (Bld) [Mass fraction] % Normal 0.0-1.5 [facility] Comment on above: Order Comment: Speci men Type: ARTERIAL BLOOD SPECIMEN Ordering Facility: [facility] Address: [address] Performed By: #### A LLBG #### [facility] CLIA [id number] [facility] [address] [place] [address] O2 THERAPY NC = Nasal Cannula Normal [facility] Comment on above: Order Comment: Speci men Type: ARTERIAL BLOOD SPECIMEN Ordering Facility: [facility] Address: [address] [place] [address] Result Comment: 5L Performed By: #### A LLBG #### [facility] CLIA [id number] [facility] [address] [place] [address] Oxygen (Bld) [Partial pressure] 75 mm Hg Low 85-95 [facility] Comment on above: Order Comment: Speci men Type: ARTERIAL BLOOD SPECIMEN Ordering Facility: [facility] Address: [address] [place] [address] Performed By: #### A LLBG #### [facility] CLIA [id number] [facility] [address] [place] [address] OXYGEN SATURATION, ARTERIAL 95 % Normal 95-98 [facility] Comment on above: Order Comment: Speci men Type: ARTERIAL BLOOD SPECIMEN Ordering Facility: [facility] Address: [address] [place], [place] [id number] Performed By: #### A LLBG #### [facility] CLIA [id number] [facility] [address] [place] [address] Oxyhemoglobin (BldA) [Mass fraction] 94 % Low 95-98 [facility] Comment on above: Order Comment: Speci men Type: ARTERIAL BLOOD SPECIMEN Ordering Facility: [facility] Address: [address] Performed By: #### A LLBG #### [facility] CLIA [id number] [facility] [address] [place] [address] pH (Bld) 7.41 [pH] Normal 7.35-7.45 [facility] Comment on above: Order Comment: Speci men Type: ARTERIAL BLOOD SPECIMEN Ordering Facility: [facility] Address: [address] [place] [address] Performed By: #### A LLBG #### [facility] CLIA [id number] [facility] [address] [place] [address] Potassium [Moles/Vol] 3.7 mmol/L Normal 3.5-5.0 [facility] Comment on above: Order Comment: Speci men Type: ARTERIAL BLOOD SPECIMEN Ordering Facility: [facility] Address: [address] [place] [address] Performed By: #### A LLBG #### [facility] CLIA [id number] [facility] [address] [place], [place] [address] Sodium [Moles/Vol] 143 mmol/L Normal 136-144 [facility] Comment on above: Order Comment: Speci men Type: ARTERIAL BLOOD SPECIMEN Ordering Facility: [facility] Address: [address] [place] [address] Performed By: #### A LLBG #### [facility] CLIA [id number] [facility] [address] [place] [address] BRIEF OP NOTon 05-28-2021 BRIEF OP NOT HNO ID: [id number] Author: Karan Fuentes MD Service: Cardiovascular Disease Author Type: Physician Type: Brief Op Note Filed: 05/28/2021 10:38 AM Note Text: [facility] Preliminary Report PATIENT NAME: Kassandra Smith LOG ID: [id number] Surgery Date: 05/28/2021 Procedure : Cardiac catherization with coronary arteriography Time Out: Team Confirmed the Correct Patient, Correct Procedure, Correct Site and Site Marking, Correct Position (if applicable): Completed Anesthesia: Procedural Sedation Indication : Chest pain, sob Family Services Manager : MD Ariane,[facility] Estimated Blood Loss : < 5 ml Specimens Removed : none Pre-operative Diagnosis : CAD Post Operative Diagnosis : see below MODERATE SEDATION: Moderate Sedation provided by Cardiology Nursing Staff. Moderate sedation consisting of continuous ECG, pulse oximetry and cardiopulmonary monitoring was performed by the Cardiology Nurse, overseen by supervising physician, for an intra-service time of 0 hr. 31 min. Sedation : Midazolam 1 mg Fentanyl 25mcg Complications : none Condition : stable Preliminary findings: Mild pulmonary hypertension Mildly elevated filling pressures Normal coronary arteries. Normal LVEF Plan - Treatment of pulmonary issues. If SOB persists, consider small dose of diuretics. Plan of care discussed with patient and sister Serina. All questions answered. MD Ariane,[facility] [place] [facility] May 28, 2021 10:33 AM Normal [facility] Basic metabolic 2000 panelon 05-28-2021 Anion gap [Moles/Vol] 8 mmol/L Low 9-18 [facility] Comment on above: Order Comment: Speci men Type: BLOOD SPECIMEN Ordering Facility: [facility] Address: [facility] [address] Performed By: #### 2 4321-2 #### [facility] CLIA [id number] [place], [place] [address] [place] Calcium [Mass/Vol] 9.4 mg/dL Normal 8.5-10.2 [facility] Comment on above: Order Comment: Speci men Type: BLOOD SPECIMEN Ordering Facility: [facility] Address: [address] [place] [address] Performed By: #### 2 4321-2 #### [facility] CLIA [id number] [address] [place] [address] [place] Chloride [Moles/Vol] 104 mmol/L Normal 97-105 [facility] Comment on above: Order Comment: Speci men Type: BLOOD SPECIMEN Ordering Facility: [facility] Address: [address] [place] [address] Performed By: #### 2 4321-2 #### [facility] CLIA [id number] [address] [place] [address] [place] CO2 [Moles/Vol] 28 mmol/L Normal 22-30 [facility] Comment on above: Order Comment: Speci men Type: BLOOD SPECIMEN Ordering Facility: [facility] Address: [address] [place] [address] Performed By: #### 2 4321-2 #### [facility] CLIA [id number] [address] [place] [address] [place] Creatinine [Mass/Vol] 0.72 mg/dL Normal 0.58-0.96 [facility] Comment on above: Order Comment: Speci men Type: BLOOD SPECIMEN Ordering Facility: [facility] Address: [address] [place] [address] Performed By: #### 2 4321-2 #### [facility] CLIA [id number] [address] [place] [address] [place] ESTIMATED GLOMERULAR FILTRATION RATE 93 mL/min/1.73m??? Normal >=60 [facility] Comment on above: Order Comment: Speci men Type: BLOOD SPECIMEN Ordering Facility: [facility] Address: [address] [place] [address] Result Comment: Brandyn mated Glomerular Filtration Rate (eGFR) is calculated using the 2020 CKD-EPI creatinine equation. This equation utilizes serum creatinine, sex, and age as parameters. The creatinine assay has traceable calibration to isotope dilution-mass spectrometry. Refer to KDIGO guidelines for clinical interpretation. In patients with unstable renal function, e.g. those with acute kidney injury, the eGFR may not accurately reflect actual GFR. Performed By: #### 2 4321-2 #### [facility] CLIA [id number] [address] [place] [address] [place] Glucose [Mass/Vol] 114 mg/dL High 74-99 [facility] Comment on above: Order Comment: Gricelda new Type: BLOOD SPECIMEN Ordering Facility: [facility] Address: [address] [place], [place] [phone] Result Comment: The [place] [employer] (ADA) provides guidance for cutoff values for fasting glucose and random glucose. The ADA defines fasting as no caloric intake for at least 8 hours. Fasting plasma glucose results between 100 to 125 mg/dL indicate increased risk for diabetes (prediabetes). Fasting plasma glucose results greater than or equal to 126 mg/dL meet the criteria for diagnosis of diabetes. In the absence of unequivocal hyperglycemia, results should be confirmed by repeat testing. In a patient with classic symptoms of hyperglycemia or hyperglycemic crisis, random plasma glucose results greater than or equal to 200 mg/dL meet the criteria for diagnosis of diabetes. Reference: Standards of Medical Care in Diabetes 2016, [place] [employer]. Diabetes Care. 2016.39(Suppl 1). Performed By: #### 2 4321-2 #### [facility] CLIA [id number] [address] [place] [address] [place] Potassium [Moles/Vol] 4.3 mmol/L Normal 3.7-5.1 [facility] Comment on above: Order Comment: Gricelda new Type: BLOOD SPECIMEN Ordering Facility: [facility] Address: [address] [place] [phone] Performed By: #### 2 4321-2 #### [facility] CLIA [id number] [address] [place] [address] [place] Sodium [Moles/Vol] 140 mmol/L Normal 136-144 [facility] Comment on above: Order Comment: Gricelda nwe Type: BLOOD SPECIMEN Ordering Facility: [facility] Address: [address] [place], [place] [phone] Performed By: #### 2 4321-2 #### [facility] CLIA [id number] [address] [place] [address] Urea nitrogen [Mass/Vol] 18 mg/dL Normal 7-21 [facility] Comment on above: Order Comment: Speci men Type: BLOOD SPECIMEN Ordering Facility: [facility] Address: [address] [place], [place] [address] Performed By: #### 2 4321-2 #### [facility] CLIA [id number] [address] [place] [address] CNDSon 05-28-2021 CNDS HNO ID: [id number] Author: Shanika Bryan MD Service: ? Author Type: Physician Type: Discharge Summary Filed: 05/28/2021 9:54 PM Note Text: DISCHARGE SUMMARY PATIENT NAME: Kassandra Smith Code Status: Not on file Highest Readmission Risk Score: 10 The 30 day readmissions risk score is derived from an internally validated risk model which evaluates patient level characteristics, utilization history, medication orders and lab results up until the day of discharge. Patients with a score of 40 or above are considered highest risk for readmission. Specific patient level drivers will be listed at the bottom of the summary. Admission Information Admission Information ADMIT DATE: 05/26/2021 DISCHARGE DATE: 05/28/2021 MY DOCTORS AND MEDICAL TEAM: My Main Hospital Doctor: Shanika Bryan MD Primary Care Provider: Marcela Buchanan MD, MD My Medical Team Members: Treatment Team: Attending Provider: Shanika Bryan MD Consulting: Prieto Perez MD MY CONDITION AT DISCHARGE: Stable REASON I WAS IN THE HOSPITAL: Shortness of Breath/Hypoxia SUMMARY OF WHAT HAPPENED WHILE I WAS IN THE HOSPITAL: 1. Sob with hypoxia- telemetry, cardiac enzymes, CXR - unremarkable d dimer unremarkable, S/p echo, if pulmonary work up is negative- was seen by pulmonary- chronic bronchitis, recommended steroids, doxycycline, follow up as outpt. S/p cardiac cath- mild pulmonary HTn, NL coronries. . 2. Dyslipidemia- resume statin 3. Anxiety- resume citalopram 4. CT Chest noted nodular density in right breast , Patient states that she has h/o abnormal mammogram , work up was benign. She will follow up with PCP - Has not had mammogram recently - discussed with patient who stated she will follow up with PCP Discharge Disposition Discharge Disposition: Home With Self Care Activity When You Leave the Hospital Resume pre-hospital activity Diet Instructions Resume your pre-hospital diet Call Your Doctor If You have a severe headache You have lightheadedness, fainting, or confusion You have swollen glands or cold and clammy skin Your temperature is greater than 101F Follow Up Appointments Follow-Up Appointment When: In 2 weeks Patient/Parents to call for appointment?: Yes Karan Fuentes MD [phone] [address] [facility] [address] PCP Requested Referral Additional Provider to Provider Information: Treatment Team: Attending Provider: Shanika Bryan MD Consulting: Prieto Perez MD FOLLOW-UP APPOINTMENTS ALREADY SCHEDULED WITH A [facility] PROVIDER: Future Appointments Date Time Provider Department Center 06/21/2021 4:00 PM Karan Fuentes MD [facility] Discharge Information Row Name ED to Hosp-Admission (Discharged) from 05/26/[address] Medical Equipment Agency Medical Service [employer] Please call when you arrive home so they can complete your home setup Equipment Needed Home oxygen ALLERGIES No Known Allergies DISCHARGE MEDICATION: Discharge Medication List as of 05/28/2021 5:48 PM START taking these medications fluticasone-vilanterol (BREO ELLIPTA) 100-25 mcg/dose inhaler Inhale 1 Inhalation as instructed once daily. Normal, Disp-60 Each, R-1, Long-term doxycycline hyclate (VIBRAMYCIN) 100 mg capsule Take 1 capsule by mouth every 12 hours for 13 doses. Normal, Disp-13 capsule, R-0 predniSONE (DELTASONE) 10 mg tablet Take 4 tablets daily for 3 days, then 3 tablets daily for 3 days, then 2 tablets daily for 3 days, then 1 tablet daily for 3 days Normal, Disp-30 tablet, R-0 Miscellaneous Medical Supply Dispense one nebulizer compressor with lifetime supplies. Print RX, Disp-1 Each, R-0 Dx: 1. COPD with chronic bronchitis (HCC) albuterol (PROVENTIL) 2.5 mg /3 mL (0.083 %) nebulizer solution Use 3 mL via nebulizer every 4 hours as needed for wheezing/shortness of breath. Normal, Disp-120 Vial, R-1, Long-term CONTINUE these medications which have CHANGED albuterol HFA (PROVENTIL HFA, VENTOLIN HFA) 90 mcg/actuation inhaler Inhale 1 Puff as instructed every 4 hours as needed for wheezing/shortness of breath. Inhale 1 to 2 puffs every 4 to 6 hours as needed Normal, Disp-1 Inhaler, R-1, Long-term Generic or brand: dispense inhaler preferred by patient/insurance unless AMBER fla g is selected. CONTINUE these medications which have NOT CHANGED atorvastatin (LIPITOR) 80 mg tablet Take 80 mg by mouth daily at bedtime. Historical Med citalopram (CELEXA) 40 mg tablet Take 40 mg by mouth once daily. Historical Med, Long-term oxybutynin (DITROPAN) 5 mg tablet Take 5 mg by mouth twice daily. Historical Med, Long-term calcium carbonate (CALTRATE) 600 mg calcium (1,500 mg) tab Take 1,200 mg by mouth once daily. Historical Med, Long-term Vit A,C and D-Ulyrfa-Dsyfhzgl (OCUVITE) 300 mcg-200 mg-27 mg-2 mg tab Take 1 tablet by mo (more content not included)... [facility] CONSULT PROGon 05-28-2021 CONSULT PROG HNO ID: [id number] Author: Karan Fuentes MD Service: Cardiovascular Disease Author Type: Physician Type: Consult Progress Note Filed: 05/28/2021 1:16 PM Note Text: Test results reviewed with patient and primary and pulm service. Can be discharged from cardiac standpoint. Follow up in 2-3 weeks. Patient to call for appointment [phone] Thanks MD Ariane,[facility] CONSULT PROG HNO ID: [id number] Author: Karan Fuentes MD Service: Cardiovascular Disease Author Type: Physician Type: Consult Progress Note Filed: 05/28/2021 7:53 AM Note Text: CARDIAC CATHETERIZATION RISK ASSESSMENT PATIENT NAME: Kassandra Smith SERVICE DATE: May 28, 2021 SERVICE TIME: 7:53 AM No Critical left main stenosis or equivalent ischemia suggested by an early positive ischemic response on exercise testing i.e. Abnormal horizontal or down sloping ST depression with all of the following: -onset at a heart rate of < 120 (if not on beta blockers) or < 6.5 METS -Magnitude > 2.0 mm of depression -Post exercise duration > 6 minutes and depression in multiple leads No Abnormal systolic blood pressure response during progressive exercise with a sustained decrease of >10 mm HG or flat blood pressure response at less than 130 mm HG, with or without associated EKG evidence of ischemia. No Unstable angina pectoris that cannot be stabilized medically before catheterization or recurrent angina at rest refractory to maximal medical treatment. No Unstable or acute myocardial infarction i.e. -Acute on-going q-wave myocardial infarction with persistent pain or unstable hemodynamics, except when appropriate emergency catheter-based intervention is required. -Acute q-wave or non q-wave myocardial infarction with persistent or recurrent angina refractory to medical therapy when emergency therapeutic catheterization is considered imminent. No Critical aortic stenosis defined by current echo-Doppler criteria (i.e. mean gradient greater than fifty millimeters of mercury, valve area less than seventy-five hundredths (.75) square centimeters, or a mean gradient less than fifty millimeters of mercury in the setting of left ventricular dysfunction). No Uncompensated congestive heart failure refractory to medical management. No Reverse intra-cardiac shunts (i.e. Eisenmenger syndrome). No Known severe pulmonary hypertension. No Uncontrolled ventricular arrhythmias. No Severe valvular dysfunction, especially in the setting of depressed left ventricular performance. No Require percutaneous coronary interventions, including percutaneous transluminal coronary angioplasty (PTCA) or another non-surgical revascularization procedure. These procedures shall not be performed without on-site open heart surgical standby. No Requires other non-therapeutic, except right heart ablation, OR high-risk procedures such as transseptal catheterization or direct ventricular puncture. No Patients less than 22 years of age. MD Ariane,FACC May 28, 2021 7:53 AM The following are the [facility] Criteria for High Risk Catheterization: Patients with high-risk conditions listed above may require emergency catheter-based therapeutic interventions or open heart surgery. Hence, they shall undergo cardiac catheterization only in a catheterization laboratory that has open heart surgical support available on-site, (i.e., accessible from the catheterization laboratory or by radha). [facility] CONSULT PROG HNO ID: [id number] Author: Karan Fuentes MD Service: Cardiovascular Disease Author Type: Physician Type: Consult Progress Note Filed: 05/28/2021 7:52 AM Note Text: [facility] Card[facility] Progress Notes May 28, 2021 7:49 AM Hospital Day: # 2 Part of this note was copied from my previous note, all content has been individually reviewed, updated as necessary, and thoroughly reviewed, and patient assessed with updates/ changes documented/adjusted. Consult Note May 26, 2021 Admit Date :05/26/2021 Ms. Smith is a 66 year old female with a history of dyslipidemia, anxiety, remote smoking, who presents to [facility] emergency room because of shortness of breath and hypoxemia. Patient was at [facility] having pulmonary function test. Patient was noted to be short of breath and hypoxemic with pulse ox of 85% and sent to the emergency room. According the patient she has had shortness of breath for the last couple of years. Has been seeing her family doctor. He performed a stress test and an echocardiogram which according to the patient were unremarkable. He also provided her with an inhaler. Has not really provided any benefit. Has had persistent exertional shortness of breath. Denies any chest discomfort. No fever or cough. ? ? Past Cardiac History : ? 1. None. ? ? Interval Hx: Has had intermittent chest heaviness. Had one episode this morning. Transthoracic Echo [facility] Date of service: 05/26/2021 - The left ventricle is normal in size. Left ventricular systolic function is normal. EF = 70 ? 5% (visual est.) Normal left ventricular diastolic function. - The right ventricle is normal in size. Right ventricular systolic function is normal. - There are no significant valvular abnormalities. - The patient has not had a prior CC echocardiographic exam for comparison. A/P: 1. In summary this is a 66 year old female with a history of dyslipidemia, anxiety, remote smoking, who presents to [facility] emergency room because of shortness of breath and hypoxemia. Differential diagnoses would include bronchospastic airways disease, angina equivalent. Echocardiogram unremarkable. Has had intermittent chest heaviness as noted above. Needs further ischemic work-up. Has had a negative stress test at . In view of recurrent symptoms further work-up has been recommended. Discussed with patient regarding options for further work up including stress test or cardiac cath. Relative risks, benefits explained. Patient has opted for card cath for definitive diagnosis. Procedure, indications, alternatives, benefits and risks explained. All questions answered. The patient appears to understand, accept and is anxious to proceed. ? 2. Dyslipidemia. Continue statins. ? 3. History of anxiety. Has been on citalopram at home. ? 4. Hypoxemia. Will repeat echo with saline contrast and do a right heart cath as well. CT angiogram negative for pulmonary embolism. ? Plan of care discussed with patient. All questions answered. Discussed with pulmonary service. Still some S: Has had intermittent chest heaviness. Shortness of breath is better. BP 117/63 Pulse 60 Temp (Src) 97.5 (Oral) Resp 18 Wt 177 lb (80.3kg) SpO2 95% O2 Therapy: Nasal Cannula, Liters: 5.00 weight is 80.3 kg (177 lb). Her oral temperature is 36.4 ?C (97.5 ?F). Her blood pressure is 117/63 and her pulse is 60. Her respiration is 18 and oxygen saturation is 95%. Intake/Output Summary (Last 24 hours) at 05/28/2021 0749 Last data filed at 05/27/2021 1030 Gross per 24 hour Intake 150 ml Output ? Net 150 ml O : General: In no acute distress, speaking in complete sentences. Comfortable. Skin: No clubbing, no cyanosis., no rash Eyes: Normal conjunctiva Oropharynx: Tongue moist Neck: jugular venous distention negative Lungs: Clear. Heart: Regular rhythm, PMI not displaced, S1, S2 normal, no S3, no S4, no heaves, no rub and no murmur. Abdomen: Soft, nontender Extremities: No peripheral edema Neuro: alert, cooperative Recent Labs 05/27/21 1147 05/26/21 1012 PH 7.42 -- PO2 52* -- PCO2 46 -- HCO3 29* -- LACT 1.7 1.2 Recent Labs 05/26/21 0946 WBC 7.70 HB 15.7* HCT 45.9 PLT 277 Recent Labs 05/26/21 1012 INR 1.1 Recent Labs 05/28/21 0629 05/26/21 0946 CREAT 0.72 0.86 BUN 18 15 NA 140 141 K 4.3 3.8 CO2 28 27 CA 9.4 9.7 AST -- 18 ALT -- 15 ALKPHOS -- 129* TBILI -- 0.9 Recent Labs 05/27/21 0049 05/26/21 1937 05/26/21 1346 TROPT <0.010 <0.010 <0.010 (more content not included)... Normal [facility] Gas and Carbon monoxide pane l (BldV)on 05-28-2021 Base excess Calc (BldV) [Moles/Vol] 4 mmol/L High 0-2 [facility] Comment on above: Order Comment: Speci men Type: VENOUS BLOOD SPECIMEN Ordering Facility: [facility] Address: [address] Performed By: #### 2 4344-4 #### [facility] CLIA [id number] [facility] [address] [place], [place] [address] Body temperature 98.6 [degF] Normal [facility] Comment on above: Order Comment: Speci men Type: VENOUS BLOOD SPECIMEN Ordering Facility: [facility] Address: [address] [place], [place] [address] Performed By: #### 2 4344-4 #### [facility] CLIA [id number] [facility] [address] [place] [address] Calcium.ionized (Bld) [Mass/Vol] 1.15 mmol/L Normal 1.08-1.30 [facility] Comment on above: Order Comment: Speci men Type: VENOUS BLOOD SPECIMEN Ordering Facility: [facility] Address: [address] [place], [place] [address] Performed By: #### 2 4344-4 #### [facility] CLIA [id number] [facility] [address] [place] [address] Carboxyhemoglobin (BldV) [Mass fraction] <1.0 Normal 0.0-2.0 [facility] Comment on above: Order Comment: Speci men Type: VENOUS BLOOD SPECIMEN Ordering Facility: [facility] Address: [address] [place], [place] [address] Result Comment: Carb oxyhemoglobin Reference Range for Smokers: 2.0-8.0% Performed By: #### 2 4344-4 #### [facility] CLIA [id number] [facility] [address] [place], [place] [address] Chloride [Moles/Vol] 109 mmol/L High 97-105 [facility] Comment on above: Order Comment: Speci men Type: VENOUS BLOOD SPECIMEN Ordering Facility: [facility] Address: [address] [place], [place] [address] Performed By: #### 2 4344-4 #### [facility] CLIA [id number] [facility] [id number] [place] [address] CO2 (BldV) [Partial pressure] 47 mm[Hg] Normal 42-55 [facility] Comment on above: Order Comment: Speci men Type: VENOUS BLOOD SPECIMEN Ordering Facility: [facility] Address: [address] [place] [address] Performed By: #### 2 4344-4 #### [facility] CLIA [id number] [facility] [id number] [place] [address] HCO3 (Bld) [Moles/Vol] 29 mmol/L High 24-28 [facility] Comment on above: Order Comment: Speci men Type: VENOUS BLOOD SPECIMEN Ordering Facility: [facility] Address: [address] [place] [address] Performed By: #### 2 4344-4 #### [facility] CLIA [id number] [facility] [address] [place] [address] Hemoglobin (Bld) [Mass/Vol] 13.8 g/dL Normal 11.5-15.5 [facility] Comment on above: Order Comment: Speci men Type: VENOUS BLOOD SPECIMEN Ordering Facility: [facility] Address: [address] [place] [address] Performed By: #### 2 4344-4 #### [facility] CLIA [id number] [facility] [address] [place] [address]04 Lactate [Moles/Vol] 1.0 mmol/L Normal 0.5-2.2 [facility] Comment on above: Order Comment: Speci men Type: VENOUS BLOOD SPECIMEN Ordering Facility: [facility] Address: [address] [place] [address] Performed By: #### 2 4344-4 #### [facility] CLIA [id number] [facility] [address] [place] [address]153 Methemoglobin (Bld) [Mass fraction] % Normal 0.0-1.5 [facility] Comment on above: Order Comment: Speci men Type: VENOUS BLOOD SPECIMEN Ordering Facility: [facility] Address: [address] [place] [address] Performed By: #### 2 4344-4 #### [facility] CLIA [id number] [facility] [address] [place] [address] 23194 O2 THERAPY NC = Nasal Cannula Normal [facility] Comment on above: Order Comment: Speci men Type: VENOUS BLOOD SPECIMEN Ordering Facility: [facility] Address: [address] [place] [address] Result Comment: 5L Performed By: #### 2 4344-4 #### [facility] CLIA [id number] [facility] [address] [place] [address]38 Oxygen (BldV) [Partial pressure] 37 mm[Hg] Normal 35-45 [facility] Comment on above: Order Comment: Speci men Type: VENOUS BLOOD SPECIMEN Ordering Facility: [facility] Address: [address] [place] [address] Performed By: #### 2 4344-4 #### [facility] CLIA [id number] [facility] [address] [place] [address] Oxygen saturation in Blood 68 % Normal 60-85 [facility] Comment on above: Order Comment: Speci men Type: VENOUS BLOOD SPECIMEN Ordering Facility: [facility] Address: [address] [place] [address] Performed By: #### 2 4344-4 #### [facility] CLIA [id number] [facility] [address] [place] [address]80 Oxyhemoglobin (BldV) [Mass fraction] 67 % Normal 60-85 [facility] Comment on above: Order Comment: Speci men Type: VENOUS BLOOD SPECIMEN Ordering Facility: [facility] Address: [address] [place], [place] [address] Performed By: #### 2 4344-4 #### [facility] CLIA [id number] [facility] [address] [place] [address]309 pH (BldV) 7.40 [pH] Normal 7.32-7.42 [facility] Comment on above: Order Comment: Speci men Type: VENOUS BLOOD SPECIMEN Ordering Facility: [facility] Address: [address] [place], [place] [address] Performed By: #### 2 4344-4 #### [facility] CLIA [id number] [facility] [address] [place] [address]28 Potassium [Moles/Vol] 3.7 mmol/L Normal 3.5-5.0 [facility] Comment on above: Order Comment: Speci men Type: VENOUS BLOOD SPECIMEN Ordering Facility: [facility] Address: [address] [place], [place] [address] Performed By: #### 2 4344-4 #### [facility] CLIA [id number] [facility] [address] [place] [address] 15776 Sodium [Moles/Vol] 144 mmol/L Normal 136-144 [facility] Comment on above: Order Comment: Speci men Type: VENOUS BLOOD SPECIMEN Ordering Facility: [facility] Address: [address] [place], [place] [address] Performed By: #### 2 4344-4 #### [facility] CLIA [id number] [facility] [address] [place] [address] BASE DEFICIT, VENOUS >-1 Normal -2-0 [facility] Comment on above: Order Comment: Speci men Type: BLOOD SPECIMEN Ordering Facility: [facility] Address: [address] [place], [place] [address] Performed By: #### 5 7021-8 #### [facility] CLIA [id number] [address] [place] [address] [place] Body temperature 98.6 [degF] Normal [facility] Comment on above: Order Comment: Speci men Type: BLOOD SPECIMEN Ordering Facility: [facility] Address: [address] [place] [address] Performed By: #### 5 7021-8 #### [facility] [place] [id number] [address] [place] [address] [place] Calcium.ionized (Bld) [Mass/Vol] 0.93 mmol/L Low 1.08-1.30 [facility] Comment on above: Order Comment: Speci men Type: BLOOD SPECIMEN Ordering Facility: [facility] Address: [address] [place] [address] Performed By: #### 5 7021-8 #### [facility] [place] [id number] [address] [place] [address] [place] Carboxyhemoglobin (BldV) [Mass fraction] <1.0 Normal 0.0-2.0 [facility] Comment on above: Order Comment: Speci men Type: BLOOD SPECIMEN Ordering Facility: [facility] Address: [address] [place] [address] Result Comment: Carb oxyhemoglobin Reference Range for Smokers: 2.0-8.0% Performed By: #### 5 7021-8 #### [facility] [place] [id number] [address] [place] [address] [place] Chloride [Moles/Vol] 113 mmol/L High 97-105 [facility] Comment on above: Order Comment: Speci men Type: BLOOD SPECIMEN Ordering Facility: [facility] Address: [address] [place] [address] Performed By: #### 5 7021-8 #### [facility] [place] [id number] [address] [place] [address] [place] CO2 (BldV) [Partial pressure] 41 mm[Hg] Low 42-55 [facility] Comment on above: Order Comment: Speci men Type: BLOOD SPECIMEN Ordering Facility: [facility] Address: [address] [place] [address] Performed By: #### 5 7021-8 #### [facility] CLIA [id number] [address] [place] [address] [place] HCO3 (Bld) [Moles/Vol] 24 mmol/L Normal 24-28 [facility] Comment on above: Order Comment: Speci men Type: BLOOD SPECIMEN Ordering Facility: [facility] Address: [address] [place] [address] Performed By: #### 5 7021-8 #### [facility] CLIA [id number] [address] [place] [address] [place] Hemoglobin (Bld) [Mass/Vol] 13.9 g/dL Normal 11.5-15.5 [facility] Comment on above: Order Comment: Speci men Type: BLOOD SPECIMEN Ordering Facility: [facility] Address: [address] [place] [address] Performed By: #### 5 7021-8 #### [facility] CLIA [id number] [address] [place] [address] [place] Lactate [Moles/Vol] 0.8 mmol/L Normal 0.5-2.2 [facility] Comment on above: Order Comment: Speci men Type: BLOOD SPECIMEN Ordering Facility: [facility] Address: [address] [place], [place] [address] Performed By: #### 5 7021-8 #### [facility] CLIA [id number] [address] [place] [address] [place] Methemoglobin (Bld) [Mass fraction] % Normal 0.0-1.5 [facility] Comment on above: Order Comment: Speci men Type: BLOOD SPECIMEN Ordering Facility: [facility] Address: [address] [place], [place] [address] Performed By: #### 5 7021-8 #### [facility] CLIA [id number] [place] [address] [place] O2 THERAPY NC = Nasal Cannula Normal [facility] Comment on above: Order Comment: Speci men Type: BLOOD SPECIMEN Ordering Facility: [facility] Address: [address] [place] [address] Result Comment: 5L Performed By: #### 5 7021-8 #### [facility] CLIA [id number] [place] [address] [place] Oxygen (BldV) [Partial pressure] 37 mm[Hg] Normal 35-45 [facility] Comment on above: Order Comment: Speci men Type: BLOOD SPECIMEN Ordering Facility: [facility] Address: [address] [place] [address] Performed By: #### 5 7021-8 #### [facility] CLIA [id number] [address] [place] [address] [place] Oxygen saturation in Blood 68 % Normal 60-85 [facility] Comment on above: Order Comment: Speci men Type: BLOOD SPECIMEN Ordering Facility: [facility] Address: [address] [place] [address] Performed By: #### 5 7021-8 #### [facility] CLIA [id number] [address] [place] [address] [place] Oxyhemoglobin (BldV) [Mass fraction] 67 % Normal 60-85 [facility] Comment on above: Order Comment: Speci men Type: BLOOD SPECIMEN Ordering Facility: [facility] Address: [address] [place] [address] Performed By: #### 5 7021-8 #### [facility] CLIA [id number] [address] [place] [address] [place] pH (BldV) 7.38 [pH] Normal 7.32-7.42 [facility] Comment on above: Order Comment: Speci men Type: BLOOD SPECIMEN Ordering Facility: [facility] Address: [address] [address] Performed By: #### 5 7021-8 #### [facility] CLIA [id number] [address] [place] [address] [place] Potassium [Moles/Vol] 3.1 mmol/L Low 3.5-5.0 [facility] Comment on above: Order Comment: Speci men Type: BLOOD SPECIMEN Ordering Facility: [facility] Address: [address] [place] [address] Performed By: #### 5 7021-8 #### [facility] CLIA [id number] [address] [place] [address] [place] Sodium [Moles/Vol] 149 mmol/L High 136-144 [facility] Comment on above: Order Comment: Speci men Type: BLOOD SPECIMEN Ordering Facility: [facility] Address: [address] [place] [address] Performed By: #### 5 7021-8 #### [facility] CLIA [id number] [address] [place] [address] [place] NURSING PROGon 05-28-2021 NURSING PROG HNO ID: [id number] Author: Evangelista Guzmán RN Service: Radiology Author Type: Registered Nurse Type: Nursing Progress Note Filed: 05/28/2021 8:51 AM Note Text: PICC/VASCULAR ACCESS PROGRESS NOTE SERVICE DATE: 05/28/2021 SERVICE TIME: 834 8:51 AM Requested to see patient who has had unsuccessful IV attempts, needs new IV. Using ultrasound guidance, A peripheral IV was started in the Right upper extremity with a Angio cath: 20 gauge. 1 3/4 inches in length, on first attempt. Brisk blood return and flushed without difficulty with 10 mL saline. No symptoms of complications. SIGNATURE: Evangelista Guzmán RN PATIENT NAME: Kassandra Smith DATE: May 28, 2021 TIME: 8:50 AM PAGER/CONTACT #: [phone] [facility] ALLIED HEALTHon 05-27-2021 ALLIED HEALTH HNO ID: [id number] Author: Eliane Samuel RDMS Service: Radiology Author Type: Tool Room Machinist Type: Allied Health Filed: 05/27/2021 3:30 PM Note Text: Radiology Service Progress Note PATIENT NAME: Kassandra Smith DATE OF SERVICE: May 27, 2021 TIME: 3:30 PM PATIENT IDENTITY VERIFICATION COMPLETED USING TWO (2) IDENTIFIERS: Name and Date of confirmed by patient verbally and Name and Date of confirmed by identification band. FALL SCREENING: Has the patient had 2 falls in the last year or 1 fall with injury or currently using an Ambulatory Assistive Device (Walker, Cane, Wheelchair, Crutches, etc.)? Inpatient: Screened on floor PATIENT GENDER DATA: Female. status: : No status: N/A PATIENT RELEVANT IMPLANT DATA REVIEWED: Not Applicable RADIOLOGY DEPARTMENT: Ultrasound PERIPHERAL IV DATA: Not applicable SIGNED BY: Eliane Samuel RDMS May 27, 2021 3:30 PM [facility] ARTERIAL BLOOD GASESon 05-27 Base excess Calc (Bld) [Moles/Vol] 4 mmol/L High 0-2 [facility] Comment on above: Order Comment: Grieclda new Type: BLOOD SPECIMEN Ordering Facility: [facility] Address: [address] [place] [address] Performed By: #### 5 7021-8 #### [facility] CLIA [id number] [address] [place] [address] [place] Body temperature 98.6 [degF] Normal [facility] Comment on above: Order Comment: Gricelda new Type: BLOOD SPECIMEN Ordering Facility: [facility] Address: [address] [place] [address] Performed By: #### 5 7021-8 #### [facility] CLIA [id number] [address] [place] [address] [place] Calcium.ionized (Bld) [Mass/Vol] 1.24 mmol/L Normal 1.08-1.30 [facility] Comment on above: Order Comment: Gricelda new Type: BLOOD SPECIMEN Ordering Facility: [facility] Address: [address] [address] Performed By: #### 5 7021-8 #### [facility] CLIA [id number] [place] [address] [place] Carboxyhemoglobin (BldA) [Mass fraction] 1.3 % Normal 0.0-2.0 [facility] Comment on above: Order Comment: Speci men Type: BLOOD SPECIMEN Ordering Facility: [facility] Address: [address] [place] [address] Result Comment: Carb oxyhemoglobin Reference Range for Smokers: 2.0-8.0% Performed By: #### 5 7021-8 #### [facility] CLIA [id number] [place] [address] [place] CHLORIDE WHOLE BLOOD <86 Low 97-105 [facility] Comment on above: Order Comment: Speci men Type: BLOOD SPECIMEN Ordering Facility: [facility] Address: [address] [place] [address] Performed By: #### 5 7021-8 #### [facility] CLIA [id number] [address] [place] [address] [place] CO2 (Bld) [Partial pressure] 46 mm Hg Normal 36-46 [facility] Comment on above: Order Comment: Speci men Type: BLOOD SPECIMEN Ordering Facility: [facility] Address: [address] [place] [address] Performed By: #### 5 7021-8 #### [facility] CLIA [id number] [address] [place] [address] [place] CO2 [Moles/Vol] 1 mmol/L Low 22-28 [facility] Comment on above: Order Comment: Speci men Type: BLOOD SPECIMEN Ordering Facility: [facility] Address: [address] [place] [address] Performed By: #### 5 7021-8 #### [facility] CLIA [id number] [address] [place] [address] [place] HCO3 (Bld) [Moles/Vol] 29 mmol/L High 22-26 [facility] Comment on above: Order Comment: Speci men Type: BLOOD SPECIMEN Ordering Facility: [facility] Address: [address] [place], [place] [address] Performed By: #### 5 7021-8 #### [facility] CLIA [id number] [address] [place] [address] [place] Hemoglobin (Bld) [Mass/Vol] 14.6 g/dL Normal 11.5-15.5 [facility] Comment on above: Order Comment: Speci men Type: BLOOD SPECIMEN Ordering Facility: [facility] Address: [address] [place] [address] Performed By: #### 5 7021-8 #### [facility] [place] [id number] [address] [place] [address] [place] Lactate [Moles/Vol] 1.7 mmol/L Normal 0.5-2.2 [facility] Comment on above: Order Comment: Speci men Type: BLOOD SPECIMEN Ordering Facility: [facility] Address: [address] [place] [address] Performed By: #### 5 7021-8 #### [facility] [place] [id number] [address] [place] [address] [place] Methemoglobin (Bld) [Mass fraction] % Normal 0.0-1.5 [facility] Comment on above: Order Comment: Speci men Type: BLOOD SPECIMEN Ordering Facility: [facility] Address: [address] [place], [place] [address] Performed By: #### 5 7021-8 #### [facility] CLIA [id number] [address] [place] [address] [place] O2 THERAPY RA=Room Air Normal [facility] Comment on above: Order Comment: Speci men Type: BLOOD SPECIMEN Ordering Facility: [facility] Address: [address] [place] [address] Performed By: #### 5 7021-8 #### [facility] CLIA [id number] [address] [place] [address] [place] Oxygen (Bld) [Partial pressure] 52 mm Hg Low 85-95 [facility] Comment on above: Order Comment: Speci men Type: BLOOD SPECIMEN Ordering Facility: [facility] Address: [address] [place] [address] Performed By: #### 5 7021-8 #### [facility] CLIA [id number] [address] [place] [address] [place] OXYGEN SATURATION, ARTERIAL 87 % Low 95-98 [facility] Comment on above: Order Comment: Speci men Type: BLOOD SPECIMEN Ordering Facility: [facility] Address: [address] [place] [address] Performed By: #### 5 7021-8 #### [facility] CLIA [id number] [address] [place] [address] [place] Oxyhemoglobin (BldA) [Mass fraction] 85 % Low 95-98 [facility] Comment on above: Order Comment: Speci men Type: BLOOD SPECIMEN Ordering Facility: [facility] Address: [address] [place] [address] Performed By: #### 5 7021-8 #### [facility] CLIA [id number] [address] [place] [address] [place] pH (Bld) 7.42 [pH] Normal 7.35-7.45 [facility] Comment on above: Order Comment: Speci men Type: BLOOD SPECIMEN Ordering Facility: [facility] Address: [address] [place] [address] Performed By: #### 5 7021-8 #### [facility] CLIA [id number] [address] [place] [address] [place] Potassium [Moles/Vol] 4.0 mmol/L Normal 3.5-5.0 [facility] Comment on above: Order Comment: Speci men Type: BLOOD SPECIMEN Ordering Facility: [facility] Address: [address] [place] [address] Performed By: #### 5 7021-8 #### [facility] CLIA [id number] [address] [place] [address] [place] Sodium [Moles/Vol] 146 mmol/L High 136-144 [facility] Comment on above: Order Comment: Speci men Type: BLOOD SPECIMEN Ordering Facility: [facility] Address: [facility] [address] [id number] Performed By: #### 5 7021-8 #### [facility] CLIA [id number] [place] CONSULTon 05-27-2021 CONSULT HNO ID: [id number] Author: Prieto Perez MD Service: Pulmonary Disease Author Type: Physician Type: Consults Filed: 05/27/2021 2:10 PM Note Text: 05/27/2021 Respiratory [place] [facility] STAFF PHYSICIAN NOTE OF PERSONAL INVOLVEMENT IN CARE Patient is a 66-year-old female with past medical history of anxiety hyperlipidemia presented to the hospital with shortness of breath. No associated cough or wheezing. No fever or chills. Dyspnea is chronic going on at least for a year. She has no known history of asthma or COPD. Remote history of smoking smoked for 5 years when she was in her 20s. She does not vape. She has cats dogs and birds as pet. Even though she has been around cats and dogs throughout her life but she acquired the birds 4 years ago. Does complain of some daytime somnolence and does give history of snoring and has been told about apnea episodes during sleeping. Patient was sent to the ER as she was noted to be hypoxic when she was getting her PFTs. She had to be placed on 6 L nasal cannula. Chest x-ray did not show any acute findings Assessment and plan Shortness of breath Hypoxemia Etiology of hypoxemia is very unclear With clear chest x-ray, we obviously need to rule out PE If she does not have PE we may need to do a bubble study to rule out PFO Yesterday she was noted to be desaturating and oxygen saturation in 80s on room air Currently she is on 6 L saturating in mid 90s ABG showing pH 7.4 On RA D-dimer was mildly elevated at 550 Etiology of hypoxemia is undetermined Check CT chest to rule out PE Check lower extremity Doppler to rule out DVT Echocardiogram yesterday showed LVEF of 70% with normal LV size and function. RV normal size and function and no valvular abnormalities Examination HEENT PEARLA Lungs Clear CVS S1 S2 Abdomen Soft CARBONIZER TESTER Intact Extremities No Edema. No clubbing and cyanosis Skin Warm and dry. Neck Supple. Trachea central and mid line 05/26/21200405/27/21 0537 05/27/21 1043 05/27/21 1321 BP: 131/59 (!) 112/41 105/58 109/63 Pulse: 80 78 63 60 Resp: 18 18 18 16 Temp: 36.5 ?C (97.7 ?F) 36.3 ?C (97.3 ?F) 36.5 ?C (97.7 ?F) 36.4 ?C (97.5 ?F) TempSrc: Oral Oral Oral Oral SpO2: 93% 98% 96% 96% Weight: Recent Labs 05/26/21 0946 WBC 7.70 RBC 4.82 HB 15.7* HCT 45.9 MCV 95.2 MCH 32.6 MCHC 34.2 RDWCV 13.0 PLT 277 MPV 10.4 NEUTP 71.0 LYMPHP 14.9 MONOP 6.2 BASOP 0.8 ABSNEUT 5.46 ABSMONO 0.48 ABSEOSIN 0.54* ABSBASO 0.06 I saw and evaluated the patient. I personally obtained the bedoya and critical portions of the history and physical exam or was physically present for bedoya and critical portions performed by the [facility] Practice Provider (MYRNA). I have personally reviewed the radiographs and relevant labs. I reviewed the MYRNA's documentation and discussed the patient with the MYRNA. I agree with the MYRNA's medical decision making as documented in the APPs note. Signature: Prieto Perez MD ------- ____ PULMONARY CONSULT NOTE CONSULTING SERVICE: Pulmonary Medicine REQUESTING PHYSICIAN: Shanika Bryan MD PRIMARY CARE PHYSICIAN: Marcela Buchanan MD, MD REASON FOR CONSULT SOB ASSESSMENT/PLAN Acute hypoxic respiratory failure - Desaturation into 80s on room air, ABG on room air showed hypoxemia - Unclear etiology - CXR imaging showed no acute abnormality - Elevated Hgb possibly reflects chronic hypoxia - Of note has birds for pets - Echo showed normal EF, no valvular abnormalities Pulmonary Plan: - Check CT PE study to further assess lung parenchyma. If imaging unremarkable consider echo with bubble study to rule out right to left shunt. CHIEF COMPLAINT Shortness of breath HPI This is a 66 year old female, former remote smoker, with PMH of anxiety, hyperlipidemia who presents for evaluation of shortness of breath. Patient has had shortness of breath over last year which has worsened over last month. She states her dyspnea is worse in morning and when bending over. No cough or wheezing. No fever or chills. Denies allergies or PND. She does get occasional acid flux and takes OTC meds prn. Denies history of Covid; she is up to date on Covid vaccination. Denies history of COPD or asthma. She smoked for 5 years in her 20s, never more than a pack per day. 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 She had remote history of pneumonia when she smoked. Does not vape. She has cats, dogs and birds for pets. She has been around (more content not included)... Normal [facility] CONSULT PROGon 05-27-2021 CONSULT PROG HNO ID: [id number] Author: Karan Fuentes MD Service: Cardiovascular Disease Author Type: Physician Type: Consult Progress Note Filed: 05/27/2021 8:27 AM Note Text: [facility] Progress Notes May 27, 2021 8:23 AM Hospital Day: # 1 Part of this note was copied from my previous note, all content has been individually reviewed, updated as necessary, and thoroughly reviewed, and patient assessed with updates/ changes documented/adjusted. Consult Note May 26, 2021 Admit Date :05/26/2021 Ms. Smith is a 66 year old female with a history of dyslipidemia, anxiety, remote smoking, who presents to [facility] emergency room because of shortness of breath and hypoxemia. Patient was at [facility] having pulmonary function test. Patient was noted to be short of breath and hypoxemic with pulse ox of 85% and sent to the emergency room. According the patient she has had shortness of breath for the last couple of years. Has been seeing her family doctor. He performed a stress test and an echocardiogram which according to the patient were unremarkable. He also provided her with an inhaler. Has not really provided any benefit. Has had persistent exertional shortness of breath. Denies any chest discomfort. No fever or cough. ? ? Past Cardiac History : ? 1. None. ? ? Interval Hx: Still short of breath. No chest pain. Transthoracic Echo [facility] Date of service: 05/26/2021 - The left ventricle is normal in size. Left ventricular systolic function is normal. EF = 70 ? 5% (visual est.) Normal left ventricular diastolic function. - The right ventricle is normal in size. Right ventricular systolic function is normal. - There are no significant valvular abnormalities. - The patient has not had a prior CC echocardiographic exam for comparison. A/P: 1. In summary this is a 66 year old female with a history of dyslipidemia, anxiety, remote smoking, who presents to [facility] emergency room because of shortness of breath and hypoxemia. Differential diagnoses would include bronchospastic airways disease, angina equivalent. Echocardiogram unremarkable. EKG from this morning is pending. Further cardiac work-up after stabilization of her pulmonary status. ? 2. Dyslipidemia. Continue statins. ? 3. History of anxiety. Has been on citalopram at home. ? 4. Hypoxemia. Resolved. ? Plan of care discussed with patient. All questions answered. Still some S: No chest pain, palpitations or dizziness. Still some shortness of breath. BP 112/41 Pulse 78 Temp (Src) 97.3 (Oral) Resp 18 Wt 177 lb (80.3kg) SpO2 98% O2 Therapy: Room Air weight is 80.3 kg (177 lb). Her oral temperature is 36.3 ?C (97.3 ?F). Her blood pressure is 112/41 (abnormal) and her pulse is 78. Her respiration is 18 and oxygen saturation is 98%. No intake or output data in the 24 hours ending 05/27/21 0823 O : General: In no acute distress, speaking in complete sentences. Comfortable. Skin: No clubbing, no cyanosis., no rash Eyes: Normal conjunctiva Oropharynx: Tongue moist Neck: jugular venous distention negative Lungs: Scattered wheeze. Heart: Regular rhythm, PMI not displaced, S1, S2 normal, no S3, no S4, no heaves, no rub and no murmur. Abdomen: Soft, nontender Extremities: No peripheral edema Neuro: alert, cooperative Recent Labs 05/26/21 1012 LACT 1.2 Recent Labs 05/26/21 0946 WBC 7.70 HB 15.7* HCT 45.9 PLT 277 Recent Labs 05/26/21 1012 INR 1.1 Recent Labs 05/26/21 0946 CREAT 0.86 BUN 15 NA 141 K 3.8 CO2 27 CA 9.7 AST 18 ALT 15 ALKPHOS 129* TBILI 0.9 Recent Labs 05/27/21 0049 05/26/21 1937 05/26/21 1346 TROPT <0.010 <0.010 <0.010 Prior to Admission Medications: No medications prior to admission. Current Facility Administered Medications : Current Facility-Administered Medications Medication Dose Route Frequency - enoxaparin 40 mg injection (LOVENOX) 40 mg SUBCUTANEOUS q 24 HR - sodium chloride 0.9 % (flush) 2-10 mL (BD POSIFLUSH) 2-10 mL INTRAVENOUS DIRECTED PRN And - perflutren lipid microspheres 1.1 mg/mL 1.3 mL injection (DEFINITY) 1.3 mL INTRAVENOUS DIRECTED PRN - ipratropium-albuterol 3 mL nebulizer solution (DUONEB) 3 mL INHALATION q 4 H PRN - sodium chloride 0.9 % (flush) 2-10 mL (BD POSIFLUSH) 2-10 mL INTRAVENOUS DIRECTED PRN And - perflutren lipid microspheres 1.1 mg/mL 1.3 mL injection (DEFINITY) 1.3 mL INTRAVENOUS DIRECTED PRN - aspirin 81 mg chewable tab(s) 81 mg ORAL DAILY - atorvastatin (more content not included)... Normal [facility] CT CHEST W IVCON PEon 2021 CT CHEST W IVCON PE * * *Final Report* * * DATE OF EXAM: May 27 2021 2:57PM [facility] 0540 - CT CHEST W IVCON PE / PROCEDURE REASON: Shortness of breath * * * * Physician Interpretation * * * * EXAMINATION: CHEST CT WITH CONTRAST (PULMONARY EMBOLISM PROTOCOL) CLINICAL HISTORY: Shortness of breath Technique: Spiral CT acquisition of the chest from the thoracic inlet to the upper abdomen following IV contrast. Axial 1 and 3 mm thick slices plus coronal and sagittal reformatted images. MQ: CTCP_5 Contrast: 71 mL Omnipaque [address] Radiation dose: Integrated Dose-length product (DLP) for this visit = 262 mGy*cm CT Dose Reduction Employed: Automated exposure control (AEC) Comparison: Chest radiograph 05/26/2021 RESULT: Limitations: None. Evaluation for thromboembolic disease: - Right heart chambers: No thromboembolic disease. - Main pulmonary arteries: No thromboembolic disease. - Lobar pulmonary arteries: No thromboembolic disease. - Segmental pulmonary arteries: No thromboembolic disease. - Subsegmental pulmonary arteries: No thromboembolic disease. - Additional pulmonary artery findings: The main pulmonary artery is normal in caliber. Lines, tubes, and devices: No intrathoracic Lung parenchyma and airways: 1. Patent central airways. 2. Moderate peripheral bronchial wall thickening with moderate to severe luminal narrowing and scattered mucous plugging bilateral upper and lower lungs. 3. Hypoexpanded chest. 4. I basilar posterior subpleural confluent consolidation. 5. Patchy groundglass, primarily mosaic pattern. Pleural space: No pleural effusion. No pleural thickening. Lower neck, lymph nodes, and mediastinum: Bilateral hilar mild adenopathy. No additional thoracic adenopathy. Heart, pericardium, and thoracic vessels: The thoracic aorta is normal in caliber. The cardiac chambers are normal in size. No coronary artery atherosclerotic calcifications are noted, although the study is not optimized for coronary assessment. No pericardial effusion or thickening. Bones and soft tissues: No acute osseous abnormality. 1 cm nodular region within the right breast posterior outer lower quadrant (image 1:15 axial soft tissue saved as a bedoya image). Upper abdomen: No acute findings Machine Pie Maker (topogram) images: Frontal and lateral image. Nonobstructive bowel gas pattern. Right upper abdominal surgical clips. Probable bibasilar posterior subpleural atelectasis and/or small effusions. Patchy perihilar opacities bilaterally. External artifacts. IMPRESSION: 1. No CT evidence of pulmonary embolism. 2. Conspicuous small nodular density right breast as discussed. Correlate with mammography. 3. Moderate to severe bronchitis including multifocal mucous plugging. 4. Most likely reactive bilateral mild hilar adenopathy. 5. Hypoexpanded chest. 6. Bibasilar posterior subpleural consolidation in part atelectatic but contributing aspiration pneumonitis and/or bronchopneumonia possible. 7. Mosaic pattern of patchy groundglass consistent with small airways obstructive disease. ACTIONABLE RESULT: FOLLOW-UP Acuity: Actionable Findings: Female reproductive tract (breast) Routing code: WH_2 Recommendation: Unlisted Recommendation (see report) Time Frame: COMMUNICATION: Results will be communicated with the ordering provider via [employer] staff message or phone message by [employer] Support Services within 2 business days of report finalization. Algorithms for management of incidental imaging findings can be found on the [facility] Intranet Sharepoint site at: [email or web address] [email or web address] Grades 9 12 Tutor: TIM Transcribe Date/Time: May 27 2021 3:03P Dictated by : JESSICA NAVARRETE MD This examination was interpreted and the report reviewed and electronically signed by: JESSICA NAVARRETE MD on May 27 2021 3:23PM EST [id number] ACTIONABLE Invalid Interpretation Code [facility] NURSING PROGon 05-27-2021 NURSING PROG HNO ID: [id number] Author: Althea Sanchez RN Service: Nursing Author Type: Registered Nurse Type: Nursing Progress Note Filed: 05/27/2021 11:48 PM Note Text: Nursing Progress Note Patient Name: Kassandra Smith Patient Location: [id number]- Daily Note: 1930 Assumed care of patient, patient is resting in bed with no current complaints. Bed is low locked and call marrufo is within reach. 2347 Patient is requesting stool softeners . Medical house paged This note was completed by: Althea Sanchez [facility] NURSING PROG HNO ID: [id number] Author: Theresa Gallagher RN Service: ? Author Type: Registered Nurse Type: Nursing Progress Note Filed: 05/27/2021 3:16 PM Note Text: Nursing Progress Note Patient Name: Kassandra Smith Patient Location: [id number]- Daily Note: 07= Assumed care, pt asleep, laying on bed, on 6L O2 per [place]. Bed low and locked, call light within reached. Will monitor pt. 929= Attending physician came, updates given, seen pt in the room, no new orders at this time. This note was completed by: Theresa Gallagher [facility] TROPONIN Ton 05-27-2021 Troponin T.cardiac [Mass/Vol] ug/L Normal 0.000-0.029 [facility] Comment on above: Order Comment: Speci men Type: BLOOD SPECIMEN Ordering Facility: [facility] Address: [address] [place] [address] Performed By: #### T NT #### [facility] CLIA [id number] [address] [place] [address] [place] US DVT LOWER BILon 2 US DVT LOWER CHARBEL * * *Final Report* * * DATE OF EXAM: May 27 2021 3:27PM [facility] 1005 - US DVT LOWER CHARBEL / PROCEDURE REASON: Leg swelling * * * * Physician Interpretation * * * * EXAMINATION: RIGHT AND LEFT LOWER EXTREMITY DEEP VENOUS ULTRASOUND WITH DOPPLER IMAGING CLINICAL HISTORY: Lower extremity swelling. TECHNIQUE: Grayscale with compression maneuvers, color Doppler and spectral Doppler imaging of the right and left proximal deep veins was performed. Grayscale with compression maneuvers of the right and left peroneal and posterior tibial veins was performed. The right and left great and small saphenous veins were evaluated at their insertion to the deep system. Images were obtained and stored in a permanent archive. MQ: USLEB_1 COMPARISON: None RESULT: RIGHT LOWER EXTREMITY PROXIMAL DEEP VEINS Distal External Iliac, Common Femoral and Proximal Profunda Veins: Compression: Normal Doppler: Normal, spontaneous respirophasic flow. Normal response to augmentation. Femoral vein: Compression: Normal Doppler: Normal, spontaneous respirophasic flow. Normal response to augmentation. Popliteal vein: Compression: Normal Doppler: Normal, spontaneous respirophasic flow. Normal response to augmentation. CALF DEEP VEINS Peroneal veins: Normal compression. Posterior tibial veins: Normal compression. Gastrocnemius and Soleal veins: Not imaged. SUPERFICIAL VEINS Great saphenous: Patent and compressible at insertion into common femoral vein; not otherwise assessed. Small Saphenous: Patent and compressible in the proximal calf, not otherwise assessed. LEFT LOWER EXTREMITY PROXIMAL DEEP VEINS Distal External Iliac, Common Femoral and Proximal Profunda Veins: Compression: Normal Doppler: Normal, spontaneous respirophasic flow. Normal response to augmentation. Femoral vein: Compression: Normal Doppler: Normal, spontaneous respirophasic flow. Normal response to augmentation. Popliteal vein: Compression: Normal Doppler: Normal, spontaneous respirophasic flow. Normal response to augmentation. CALF DEEP VEINS Peroneal veins: Normal compression. Posterior tibial veins: Normal compression. Gastrocnemius and Soleal veins: Not imaged. SUPERFICIAL VEINS Great saphenous: Patent and compressible at insertion into common femoral vein; not otherwise assessed. Small Saphenous: Patent and compressible in the proximal calf, not otherwise assessed. IMPRESSION: Negative study for proximal DVT in the left and right lower extremities. Negative study for calf DVT in the left and right lower extremities. Negative study for superficial thrombophlebitis in the imaged segments of the left and right lower extremities. Grades 9 12 Tutor: PSCB Transcribe Date/Time: May 27 2021 3:38P Dictated by : SOFIA GONZALES MD This examination was interpreted and the report reviewed and electronically signed by: SOFIA GONZALES MD on May 27 2021 3:43PM EST [id number] [facility] Urinalysis complete panel (U )on 05-27-2021 Bilirubin Ql (U) Negative Normal Negative [facility] Comment on above: Order Comment: Speci men Type: URINE SPECIMEN Ordering Facility: [facility] Address: [address] [place] [address] Performed By: #### 2 4356-8 #### [facility] CLIA [id number] [address] [place] [address] [place] Clarity (Unsp spec) Clear Normal Clear [facility] Comment on above: Order Comment: Speci men Type: URINE SPECIMEN Ordering Facility: [facility] Address: [address] [place] [address] Performed By: #### 2 4356-8 #### [facility] CLIA [id number] [address] [place] [address] [place] Color (U) Yellow Normal Yellow [facility] Comment on above: Order Comment: Speci men Type: URINE SPECIMEN Ordering Facility: [facility] Address: [address] [place] [address] Performed By: #### 2 4356-8 #### [facility] CLIA [id number] [address] [place] [address] [place] Epithelial cells LM.HPF (Urine sed) [#/Area] Few Normal [facility] Comment on above: Order Comment: Speci men Type: URINE SPECIMEN Ordering Facility: [facility] Address: [address] [place] [address] Performed By: #### 2 4356-8 #### [facility] CLIA [id number] [address] [place] [address] [place] Glucose Test strip (U) [Mass/Vol] Negative Normal Negative [facility] Comment on above: Order Comment: Speci men Type: URINE SPECIMEN Ordering Facility: [facility] Address: [address] [place] [address] Performed By: #### 2 4356-8 #### [facility] CLIA [id number] [place] [address] [place] Hemoglobin Ql (U) Negative Normal Negative [facility] Comment on above: Order Comment: Speci men Type: URINE SPECIMEN Ordering Facility: [facility] Address: [address] [place] [address] Performed By: #### 2 4356-8 #### [facility] CLIA [id number] [address] [place] [address] [place] [facility] Ketones Ql (U) Negative Normal Negative [facility] Comment on above: Order Comment: Speci men Type: URINE SPECIMEN Ordering Facility: [facility] Address: [address] [place] [address] Performed By: #### 2 4356-8 #### [facility] CLIA [id number] [address] [place] [address] [place] [facility] Leukocyte esterase Test strip Ql (U) Trace Abnormal Negative [facility] Comment on above: Order Comment: Speci men Type: URINE SPECIMEN Ordering Facility: [facility] Address: [address] [place] [address] Performed By: #### 2 4356-8 #### [facility] CLIA [id number] [address] [place] [address] [place] Nitrite Ql (U) Negative Normal Negative [facility] Comment on above: Order Comment: Speci men Type: URINE SPECIMEN Ordering Facility: [facility] Address: [address] [place] [address] Performed By: #### 2 4356-8 #### [facility] CLIA [id number] [address] [place] [address] [place] pH (U) 5.5 [pH] Normal 5.0-8.0 [facility] Comment on above: Order Comment: Speci men Type: URINE SPECIMEN Ordering Facility: [facility] Address: [address] [place] [address] Performed By: #### 2 4356-8 #### [facility] CLIA [id number] [address] [place] [address] [place] Protein (U) [Mass/Vol] Negative Normal Negative [facility] Comment on above: Order Comment: Speci men Type: URINE SPECIMEN Ordering Facility: [facility] Address: [address] [place] [address] Performed By: #### 2 4356-8 #### [facility] IA [id number] [address] [place] [address] [place] RBC LM.HPF (Urine sed) [#/Area] 3-5 /HPF Abnormal 0-3 /HPF [facility] Comment on above: Order Comment: Speci men Type: URINE SPECIMEN Ordering Facility: [facility] Address: [address] [place] [address] Performed By: #### 2 4356-8 #### [facility] IA [id number] [address] [place] [address] [place] Specific gravity (U) [Rel density] >=1.030 High 1.005-1.030 [facility] Comment on above: Order Comment: Speci men Type: URINE SPECIMEN Ordering Facility: [facility] Address: [address] [place] [address] Performed By: #### 2 4356-8 #### [facility] CLIA [id number] [address] [place] [address] [place] Urobilinogen Ql (U) 0.2 EU/dL Normal 0.2-1.0 EU/dL [facility] Comment on above: Order Comment: Speci men Type: URINE SPECIMEN Ordering Facility: [facility] Address: [address] [place] [address] Performed By: #### 2 4356-8 #### [facility] CLIA [id number] [address] [place] [address] [place] [facility] WBC LM.HPF (Urine sed) [#/Area] /[HPF] Abnormal 0-5 /HPF [facility] Comment on above: Order Comment: Speci men Type: URINE SPECIMEN Ordering Facility: [facility] Address: [address] [place] [address] Performed By: #### 2 4356-8 #### [facility] CLIA [id number] [address] [place] [address] [place] CBC W Auto Differential pane l (Bld)on 05-26-2021 Basophils (Bld) [#/Vol] 0.06 10*3/uL Normal <0.11 [facility] Comment on above: Order Comment: Speci men Type: BLOOD SPECIMEN Ordering Facility: [facility] Address: [address] [place] [address] Performed By: #### 5 7021-8 #### [facility] IA [id number] [address] [place] [address] [place] Basophils/100 WBC (Bld) 0.8 % Normal [facility] Comment on above: Order Comment: Speci men Type: BLOOD SPECIMEN Ordering Facility: [facility] Address: [address] [place] [address] Performed By: #### 5 7021-8 #### [facility] [place] [id number] [address] [place] [address] [place] Differential cell count method Nom (Bld) Auto Normal [facility] Comment on above: Order Comment: Speci men Type: BLOOD SPECIMEN Ordering Facility: [facility] Address: [address] [place] [address] Performed By: #### 5 7021-8 #### [facility] CLIA [id number] [address] [place] [address] [place] Eosinophils (Bld) [#/Vol] 0.54 10*3/uL High <0.46 [facility] Comment on above: Order Comment: Speci men Type: BLOOD SPECIMEN Ordering Facility: [facility] Address: [address] [place] [address] Performed By: #### 5 7021-8 #### [facility] CLIA [id number] [address] [place] [address] [place] Eosinophils/100 WBC (Bld) 7.0 % Normal [facility] Comment on above: Order Comment: Speci men Type: BLOOD SPECIMEN Ordering Facility: [facility] Address: [address] [place] [address] Performed By: #### 5 7021-8 #### [facility] CLIA [id number] [address] [place] [address] [place] Erythrocyte distribution width (RBC) [Ratio] 13.0 % Normal 11.5-15.0 [facility] Comment on above: Order Comment: Speci men Type: BLOOD SPECIMEN Ordering Facility: [facility] Address: [address] [place] [address] Performed By: #### 5 7021-8 #### [facility] CLIA [id number] [address] [place] [address] [place] Hematocrit (Bld) [Volume fraction] 45.9 % Normal 36.0-46.0 [facility] Comment on above: Order Comment: Speci men Type: BLOOD SPECIMEN Ordering Facility: [facility] Address: [address] [place] [address] Performed By: #### 5 7021-8 #### [facility] CLIA [id number] [address] [place] [address] [place] Hemoglobin (Bld) [Mass/Vol] 15.7 g/dL High 11.5-15.5 [facility] Comment on above: Order Comment: Speci men Type: BLOOD SPECIMEN Ordering Facility: [facility] Address: [address] [place] [address] Performed By: #### 5 7021-8 #### [facility] CLIA [id number] [place] [address] [place] IMMATURE GRAN % 0.1 % Normal [facility] Comment on above: Order Comment: Speci men Type: BLOOD SPECIMEN Ordering Facility: [facility] Address: [address] [place] [address] Performed By: #### 5 7021-8 #### [facility] CLIA [id number] [address] [place] [address] [place] IMMATURE GRAN ABS <0.03 Normal <0.10 [facility] Comment on above: Order Comment: Speci men Type: BLOOD SPECIMEN Ordering Facility: [facility] Address: [address] [place] [address] Performed By: #### 5 7021-8 #### [facility] CLIA [id number] [address] [place] [address] [place] Lymphocytes (Bld) [#/Vol] 1.15 10*3/uL Normal 1.00-4.00 [facility] Comment on above: Order Comment: Speci men Type: BLOOD SPECIMEN Ordering Facility: [facility] Address: [address] [place] [address] Performed By: #### 5 7021-8 #### [facility] CLIA [id number] [address] [place] [address] [place] Lymphocytes/100 WBC (Bld) 14.9 % Normal [facility] Comment on above: Order Comment: Speci men Type: BLOOD SPECIMEN Ordering Facility: [facility] Address: [address] [place] [address] Performed By: #### 5 7021-8 #### [facility] CLIA [id number] [address] [place] [address] [place] MCH (RBC) [Entitic mass] 32.6 pg Normal 26.0-34.0 [facility] Comment on above: Order Comment: Speci men Type: BLOOD SPECIMEN Ordering Facility: [facility] Address: [address] [place] [address] Performed By: #### 5 7021-8 #### [facility] CLIA [id number] [address] [place] [address] [place] MCHC (RBC) [Mass/Vol] 34.2 g/dL Normal 30.5-36.0 [facility] Comment on above: Order Comment: Speci men Type: BLOOD SPECIMEN Ordering Facility: [facility] Address: [address] [place] [address] Performed By: #### 5 7021-8 #### [facility] CLIA [id number] [address] [place] [address] [place] MCV (RBC) [Entitic vol] 95.2 fL Normal 80.0-100.0 [facility] Comment on above: Order Comment: Speci men Type: BLOOD SPECIMEN Ordering Facility: [facility] Address: [address] [place] [address] Performed By: #### 5 7021-8 #### [facility] CLIA [id number] [address] [place] [address] [place] Monocytes (Bld) [#/Vol] 0.48 10*3/uL Normal <0.87 [facility] Comment on above: Order Comment: Speci men Type: BLOOD SPECIMEN Ordering Facility: [facility] Address: [address] [place] [address] Performed By: #### 5 7021-8 #### [facility] CLIA [id number] [address] [place] [address] [place] Monocytes/100 WBC (Bld) 6.2 % Normal [facility] Comment on above: Order Comment: Speci men Type: BLOOD SPECIMEN Ordering Facility: [facility] Address: [address] [place] [address] Performed By: #### 5 7021-8 #### [facility] CLIA [id number] [address] [place] [address] [place] Neutrophils (Bld) [#/Vol] 5.46 10*3/uL Normal 1.45-7.50 [facility] Comment on above: Order Comment: Speci men Type: BLOOD SPECIMEN Ordering Facility: [facility] Address: [address] [place] [address] Performed By: #### 5 7021-8 #### [facility] CLIA [id number] [address] [place] [address] [place] Neutrophils/100 WBC (Bld) 71.0 % Normal [facility] Comment on above: Order Comment: Speci men Type: BLOOD SPECIMEN Ordering Facility: [facility] Address: [address] [place] [address] Performed By: #### 5 7021-8 #### [facility] CLIA [id number] [place] [address] [place] Nucleated RBC (Bld) [#/Vol] 10*3/uL Normal <0.01 [facility] Comment on above: Order Comment: Speci men Type: BLOOD SPECIMEN Ordering Facility: [facility] Address: [address] [place] [address] Performed By: #### 5 7021-8 #### [facility] CLIA [id number] [place] [address] [place] Nucleated RBC/100 WBC (Bld) [Ratio] 0.0 /100 WBC Normal [facility] Comment on above: Order Comment: Speci men Type: BLOOD SPECIMEN Ordering Facility: [facility] Address: [address] [place] [address] Performed By: #### 5 7021-8 #### [facility] CLIA [id number] [address] [place] [address] [place] Platelet mean volume (Bld) [Entitic vol] 10.4 fL Normal 9.0-12.7 [facility] Comment on above: Order Comment: Speci men Type: BLOOD SPECIMEN Ordering Facility: [facility] Address: [address] [place] [address] Performed By: #### 5 7021-8 #### [facility] CLIA [id number] [address] [place] [address] [place] Platelets (Bld) [#/Vol] 277 10*3/uL Normal 150-400 [facility] Comment on above: Order Comment: Speci men Type: BLOOD SPECIMEN Ordering Facility: [facility] Address: [address] [place] [address] Performed By: #### 5 7021-8 #### [facility] CLIA [id number] [place] [address] [place] RBC (Bld) [#/Vol] 4.82 10*6/uL Normal 3.90-5.20 [facility] Comment on above: Order Comment: Speci men Type: BLOOD SPECIMEN Ordering Facility: [facility] Address: [address] [place] [address] Performed By: #### 5 7021-8 #### [facility] CLIA [id number] [address] [place] [address] [place] WBC (Bld) [#/Vol] 7.70 10*3/uL Normal 3.70-11.00 [facility] Comment on above: Order Comment: Speci men Type: BLOOD SPECIMEN Ordering Facility: [facility] Address: [address] [place] [address] Performed By: #### 5 7021-8 #### [facility] CLIA [id number] [address] [place] [address] [place] CONSULTon 05-26-2021 CONSULT HNO ID: [id number] Author: Karan Fuentes MD Service: Cardiovascular Disease Author Type: Physician Type: Consults Filed: 05/26/2021 1:30 PM Note Text: [facility] Consult Patient Name: Kassandra Smith Date of Admission: 05/26/2021 REASON FOR CONSULT: Shortness of Breath REQUESTING PHYSICIAN: Shanika Bryan MD DATE OF SERVICE: May 26, 2021 PCP: Marcela Buchanan MD, MD Ms. Smith is a 66 year old female with a history of dyslipidemia, anxiety, remote smoking, who presents to [facility] emergency room because of shortness of breath and hypoxemia. Patient was at [facility] having pulmonary function test. Patient was noted to be short of breath and hypoxemic with pulse ox of 85% and sent to the emergency room. According the patient she has had shortness of breath for the last couple of years. Has been seeing her family doctor. He performed a stress test and an echocardiogram which according to the patient were unremarkable. He also provided her with an inhaler. Has not really provided any benefit. Has had persistent exertional shortness of breath. Denies any chest discomfort. No fever or cough. Past Cardiac History : 1. None. No chest discomfort, orthopnea, paroxysmal nocturnal dyspnea, leg edema, dizziness, palpitations or loss of consciousness. PAST MEDICAL HISTORY Diagnosis Date - Dyslipidemia History reviewed. No pertinent surgical history. FAMILY HISTORY: Mother with congestive heart failure at an unknown age of onset. Social History Tobacco Use - Smoking status: Former Smoker - Smokeless tobacco: Never Used - Tobacco comment: 30 YEAR AGO Vaping Use - Vaping Use: Never used Substance Use Topics - Alcohol use: Not Currently - Drug use: Never MEDICATIONS: Prior to Admission Meds. (Not in a hospital admission) Current Facility Administered Meds. Current Facility-Administered Medications Medication Dose Route Frequency - enoxaparin 40 mg injection (LOVENOX) 40 mg SUBCUTANEOUS q 24 HR - sodium chloride 0.9 % (flush) 2-10 mL (BD POSIFLUSH) 2-10 mL INTRAVENOUS DIRECTED PRN And - perflutren lipid microspheres 1.1 mg/mL 1.3 mL injection (DEFINITY) 1.3 mL INTRAVENOUS DIRECTED PRN - ipratropium-albuterol 3 mL nebulizer solution (DUONEB) 3 mL INHALATION q 4 H PRN No current outpatient medications on file. ALLERGIES: ALLERGIES No Known Allergies COMPLETE REVIEW OF SYSTEMS: See HPI: All other systems reviewed and negative other than HPI. PHYSICAL EXAM: BP 117/62 Pulse 74 Temp (Src) 97.7 (Oral) Resp 16 Wt 177 lb (80.3kg) SpO2 95% O2 Therapy: Nasal Cannula, Liters: 6 weight is 80.3 kg (177 lb). Her oral temperature is 36.5 ?C (97.7 ?F). Her blood pressure is 117/62 and her pulse is 74. Her respiration is 16 and oxygen saturation is 95%. O : General: In no acute distress, speaking in complete sentences. Pleasant and cooperative Skin: No clubbing, no cyanosis., no rash Eyes: Normal conjunctiva Oropharynx: Tongue moist Neck: jugular venous distention negative Lungs: Clear to auscultation bilaterally, no wheezing or rhonchi. Heart: Regular rhythm, PMI not displaced, S1, S2 normal, no S3, no S4, no heaves, no rub and no murmur. Abdomen: Soft, nontender Extremities: No peripheral edema Neuro: alert, cooperative DATA: Recent Labs 05/26/21 1012 LACT 1.2 Labs 05/26/21 0946 WBC 7.70 HB 15.7* HCT 45.9 PLT 277 Labs 05/26/21 1012 INR 1.1 Labs 05/26/21 0946 CREAT 0.86 BUN 15 NA 141 K 3.8 CO2 27 CA 9.7 AST 18 ALT 15 ALKPHOS 129* TBILI 0.9 05/26/21 0946 TROPT <0.010 EKG: Normal sinus rhythm, remote septal infarct, nonspecific ST-T changes. ASSESSMENT AND PLAN: 1. In summary this is a 66 year old female with a history of dyslipidemia, anxiety, remote smoking, who presents to [facility] emergency room because of shortness of breath and hypoxemia. Differential diagnoses would include bronchospastic airways disease, angina equivalent. Plan at this time is to repeat the echocardiogram. We will repeat the EKG in the morning. Options for further work-up will be discussed with the patient. (more content not included)... Normal [facility] Comprehensive metabolic 2000 panelon 05-26-2021 Albumin [Mass/Vol] 4.7 g/dL Normal 3.9-4.9 [facility] Comment on above: Order Comment: Speci men Type: ARTERIAL BLOOD SPECIMEN Ordering Facility[facility] Address: [address] [place] [address] Performed By: #### A LLBG #### [facility] CLIA [id number] [facility] [address] [place] [address] ALP [Catalytic activity/Vol] 129 U/L High 34-123 [facility] Comment on above: Order Comment: Speci men Type: ARTERIAL BLOOD SPECIMEN Ordering Facility: [facility] Address: [address] [place] [address] Performed By: #### A LLBG #### [facility] CLIA [id number] [facility] [address] [place] [address] ALT [Catalytic activity/Vol] 15 U/L Normal 7-38 [facility] Comment on above: Order Comment: Speci men Type: ARTERIAL BLOOD SPECIMEN Ordering Facility: [facility] Address: [address] [place] [address] Performed By: #### A LLBG #### [facility] CLIA [id number] [facility] [address] [place] [address] Anion gap [Moles/Vol] 11 mmol/L Normal 9-18 [facility] Comment on above: Order Comment: Speci men Type: ARTERIAL BLOOD SPECIMEN Ordering Facility: [facility] Address: [address] [place] [address] Performed By: #### A LLBG #### [facility] CLIA [id number] [facility] [address] [place] [address] AST [Catalytic activity/Vol] 18 U/L Normal 13-35 [facility] Comment on above: Order Comment: Speci men Type: ARTERIAL BLOOD SPECIMEN Ordering Facility: [facility] Address: [address] [place], [place] [address] Performed By: #### A LLBG #### [facility] CLIA [id number] [facility] [address] [place] [address] Bilirubin [Mass/Vol] 0.9 mg/dL Normal 0.2-1.3 [facility] Comment on above: Order Comment: Speci men Type: ARTERIAL BLOOD SPECIMEN Ordering Facility: [facility] Address: [address] [place], [place] [address] Performed By: #### A LLBG #### [facility] CLIA [id number] [facility] [address] [place] [address]298 Calcium [Mass/Vol] 9.7 mg/dL Normal 8.5-10.2 [facility] Comment on above: Order Comment: Speci men Type: ARTERIAL BLOOD SPECIMEN Ordering Facility: [facility] Address: [address] [place], [place] [address] Performed By: #### A LLBG #### [facility] CLIA [id number] [facility] [address] [place] [address] Chloride [Moles/Vol] 103 mmol/L Normal 97-105 [facility] Comment on above: Order Comment: Speci men Type: ARTERIAL BLOOD SPECIMEN Ordering Facility: [facility] Address: [address] [place], [place] [address] Performed By: #### A LLBG #### [facility] CLIA [id number] [facility] [address] [place] [address]663 CO2 [Moles/Vol] 27 mmol/L Normal 22-30 [facility] Comment on above: Order Comment: Speci men Type: ARTERIAL BLOOD SPECIMEN Ordering Facility: [facility] Address: [address] [place], [place] [address] Performed By: #### A LLBG #### [facility] CLIA [id number] [facility] [address] [place] [address] Creatinine [Mass/Vol] 0.86 mg/dL Normal 0.58-0.96 [facility] Comment on above: Order Comment: Speci men Type: ARTERIAL BLOOD SPECIMEN Ordering Facility: [facility] Address: [address] [place] [address] Performed By: #### A LLBG #### [facility] CLIA [id number] [facility] [address] [place] [address] ESTIMATED GLOMERULAR FILTRATION RATE 75 mL/min/1.73m??? Normal >=60 [facility] Comment on above: Order Comment: Gricelda new Type: ARTERIAL BLOOD SPECIMEN Ordering Facility: [facility] Address: [address] [place] [address] Result Comment: Brandny mated Glomerular Filtration Rate (eGFR) is calculated using the 2020 CKD-EPI creatinine equation. This equation utilizes serum creatinine, sex, and age as parameters. The creatinine assay has traceable calibration to isotope dilution-mass spectrometry. Refer to KDIGO guidelines for clinical interpretation. In patients with unstable renal function, e.g. those with acute kidney injury, the eGFR may not accurately reflect actual GFR. Performed By: #### A LLBG #### [facility] CLIA [id number] [facility] [address] [place] [address] Glucose [Mass/Vol] 96 mg/dL Normal 74-99 [facility] Comment on above: Order Comment: Speci men Type: ARTERIAL BLOOD SPECIMEN Ordering Facility: [facility] Address: [address] [place] [address] Result Comment: The [place] [employer] (ADA) provides guidance for cutoff values for fasting glucose and random glucose. The ADA defines fasting as no caloric intake for at least 8 hours. Fasting plasma glucose results between 100 to 125 mg/dL indicate increased risk for diabetes (prediabetes). Fasting plasma glucose results greater than or equal to 126 mg/dL meet the criteria for diagnosis of diabetes. In the absence of unequivocal hyperglycemia, results should be confirmed by repeat testing. In a patient with classic symptoms of hyperglycemia or hyperglycemic crisis, random plasma glucose results greater than or equal to 200 mg/dL meet the criteria for diagnosis of diabetes. Reference: Standards of Medical Care in Diabetes 2016, [place] [employer]. Diabetes Care. 2016.39(Suppl 1). Performed By: #### A LLBG #### [facility] CLIA [id number] [facility] [address] [place] [address]508 Potassium [Moles/Vol] 3.8 mmol/L Normal 3.7-5.1 [facility] Comment on above: Order Comment: Gricelda new Type: ARTERIAL BLOOD SPECIMEN Ordering Facility: [facility] Address: [address] [place] [address] Performed By: #### A LLBG #### [facility] CLIA [id number] [facility] [address] [place] [address] 24208 Protein [Mass/Vol] 8.1 g/dL High 6.3-8.0 [facility] Comment on above: Order Comment: Gricelda new Type: ARTERIAL BLOOD SPECIMEN Ordering Facility: [facility] Address: [address] [place] [address] Performed By: #### A LLBG #### [facility] CLIA [id number] [facility] [address] [place] [address]306 Sodium [Moles/Vol] 141 mmol/L Normal 136-144 [facility] Comment on above: Order Comment: Gricelda new Type: ARTERIAL BLOOD SPECIMEN Ordering Facility: [facility] Address: [address] [place] [address] Performed By: #### A LLBG #### [facility] CLIA [id number] [facility] [address] [place] [address] 40643 Urea nitrogen [Mass/Vol] 15 mg/dL Normal 7-21 [facility] Comment on above: Order Comment: Gricelda new Type: ARTERIAL BLOOD SPECIMEN Ordering Facility: [facility] Address: [address] [place] [address] Performed By: #### A LLBG #### [facility] CLIA [id number] [facility] [place] [address] D dimer FEU PPP-mCncon 05-26 Fibrin D-dimer FEU (PPP) [Mass/Vol] 550 ng/mL FEU High <500 [facility] Comment on above: Order Comment: Gricelda new Type: BLOOD SPECIMEN Ordering Facility: [facility] Address: [address] [place] [address] Performed By: #### 5 7021-8 #### [facility] CLIA [id number] [place] [address] ED NOTEon 05-26-2021 ED NOTE HNO ID: [id number] Author: Sloan Arredondo RN Service: ? Author Type: Registered Nurse Type: ED Notes Filed: 05/26/2021 2:23 PM Note Text: ECHO at bedside. Pt to floor once echo completed [facility] ED NOTE HNO ID: [id number] Author: Sloan Arredondo RN Service: ? Author Type: Registered Nurse Type: ED Notes Filed: 05/26/2021 9:26 AM Note Text: Pt to ED from pulmonary office for hypoxia. Pt has been SOB x 1 year. Pt was 88% on RA in office, placed on NC and sent to ED. Pt sts she has been having trouble doing daily tasks at home due to SOB, denies any respiratory PMH. Pt 93% on 2L. resp unlabored at rest. Plan of care -Monitor Patient's Vital Signs for changes in condition -Monitor patient for changes in pain -Maintain patient safety and privacy -Provide comfort measures -Call light in place Siderails up, bed in locked and low position [facility] ED NOTE HNO ID: [id number] Author: Sloan Arredondo RN Service: ? Author Type: Registered Nurse Type: ED Notes Filed: 05/26/2021 9:15 AM Note Text: Bed: ED-28 Expected date: Expected time: Means of arrival: Comments: EMS [facility] ED NOTE HNO ID: [id number] Author: Lisha Schroeder RN Service: ? Author Type: Registered Nurse Type: ED Notes Filed: 05/26/2021 8:45 AM Note Text: Report received from [facility]. Pt was there this morning for outpatient Breathing tests: [place] baseline and oximetry with ambulation. [facility] stated pt was 85% on RA and Respirations 40 per minute. Pt was then 89% 2 L NC and 92% on 3L but still breathing 40 per minute. Heart rate in the 70s; BP was not taken Pt's PCP: Dr. [facility] was having patient's sister come take her to the ED. Advised them to call an ambulance due to pt's reported condition. [facility] ED PROV NOTEon 05-26-2021 ED PROV NOTE HNO ID: [id number] Author: Fabian Bruno MD Service: Emergency Medicine Author Type: Physician Type: ED Provider Notes Filed: 05/26/2021 11:57 AM Note Text: ED Provider Note Patient Name: Kassandra Smith : 1955 SERVICE DATE: 05/26/21 History Patient presents with: Shortness of Breath This patient lives with her sister and no one at home has COVID symptoms. She herself did not have Covid disease. She quit smoking 35 years ago and does not smoke cigarettes or marijuana and does not drink alcohol. The patient has a history of hyperlipidemia and she takes a daily aspirin every day as well as a statin. She takes Celexa for chronic depression and she has had no recent depression or thoughts of hurting herself or others or any hallucinations. She has no history of hypertension diabetes or thyroid disease. No history of cancer or venous thromboembolic disease. She has not been hospitalized lately. Her only surgeries have been a years ago and a cholecystectomy. The patient does not use a cane or a walker and she has had no recent falling. She has been short of breath for a year and that is why she comes here today. She went to her [employer] [facility] office in order to have respiratory test done but she was very hypoxic there and they sent her straight here for evaluation and treatment. The patient sees a primary care provider at the [facility]. The patient's had no recent headache or stroke symptoms. No recent sore throat fever chest pain or palpitations. She has no history of heart problems that she knows of. The patient was prescribed an inhaler several months ago because of wheezing. She has not had to use it very much. She has had no recent wheezing attacks this week or last week. She has had no cough or sputum production. Just shortness of breath that sometimes occurs when she is sitting still and sometimes it is worse when she is walking around. The patient's had no recent abdominal pain vomiting diarrhea GI bleeding. No recent flank pain dysuria hematuria frequency urgency. She no longer has menstrual periods. She has had no recent vaginal bleeding or discharge. She has had no recent leg swelling or skin rash anywhere. In summary this patient is here because she was at her pulmonology office today for respiratory testing and she was seen to be very hypoxic. The patient's had no recent cough chest pain fever but she was noted to have a bit of wheezing several months ago and was prescribed an albuterol inhaler for the first time. She does not take steroids on a daily basis. History provided by: Patient and medical records real estate assistant used: No History reviewed. No pertinent past medical history. History reviewed. No pertinent surgical history. No family history on file. Social History Tobacco Use - Smoking status: Former Smoker - Smokeless tobacco: Never Used - Tobacco comment: 30 YEAR AGO Vaping Use - Vaping Use: Never used Substance and Sexual Activity - Alcohol use: Not Currently - Drug use: Never - Sexual activity: Not on file ALLERGIES No Known Allergies Review of Systems Constitutional: Negative for activity change, appetite change, chills, diaphoresis, fatigue, fever and unexpected weight change. HENT: Negative for congestion, drooling, ear discharge, ear pain, facial swelling, hearing loss, mouth sores, nosebleeds, postnasal drip, rhinorrhea, sinus pressure, sinus pain, sneezing, sore throat, trouble swallowing and voice change. Eyes: Negative for photophobia, pain, discharge and visual disturbance. Respiratory: Positive for shortness of breath ( The patient is here because of off-and-on shortness of breath for the past year that this is worse sometimes when she exerts herself and sometimes it just happens when she is sitting.) and wheezing ( The patient has had occasional wheezing off and on for the past few months. For this reason she was prescribed an albuterol inhaler.). Negative for cough, choking, chest tightness and stridor. Cardiovascular: Negative for chest pain, palpitations and leg swelling. Gastrointestinal: Negative for abdominal distention, abdominal pain, anal bleeding, blood in stool, constipation, diarrhea, nausea, rectal pain and vomiting. Endocrine: Negative for cold intolerance, polydipsia and polyuria. Genitourinary: Negative for decreased urine volume, difficulty urinating, dysuria, flank pain, frequency, hematuria, menstrual problem, pelvic pain, urgency, vaginal bleeding, vaginal discharge and vaginal pain. Musculoskeletal: Negative for arthralgias, back pain, gait problem, joint swelling, myalgias, neck pain and neck stiffness. Skin: Negative for color change, pallor, rash and wound. Allergic/Immunologic: Negative for immunocompromised state. Neurological: Negative for dizziness, tremors, seizures, syncope, facial asymmetry, speech difficulty, weakne (more content not included)... Normal [facility] Fibrin D-dimer FEU (PPP) [Ma ss/Vol]on 05-26-2021 D DIMER AGE-RELATED CUTOFF 650 ng/mL FEU [facility] Comment on above: Order Comment: Speci men Type: BLOOD SPECIMEN Ordering Facility: [facility] Address: [address] [place] [address] Performed By: #### 5 7021-8 #### [facility] CLIA [id number] [address] [place] [address] [place] Gas and Carbon monoxide pane l (BldV)on 05-26-2021 Base excess Calc (BldV) [Moles/Vol] 3 mmol/L High 0-2 [facility] Comment on above: Order Comment: Speci men Type: VENOUS BLOOD SPECIMEN Ordering Facility: [facility] Address: [address] [place] [address] Performed By: #### 2 4344-4 #### [facility] CLIA [id number] [facility] [address] [place] [address] Body temperature 98.6 [degF] Normal [facility] Comment on above: Order Comment: Speci men Type: VENOUS BLOOD SPECIMEN Ordering Facility: [facility] Address: [address] Performed By: #### 2 4344-4 #### [facility] CLIA [id number] [facility] [address] [place], [place] [address] Calcium.ionized (Bld) [Mass/Vol] 1.20 mmol/L Normal 1.08-1.30 [facility] Comment on above: Order Comment: Speci men Type: VENOUS BLOOD SPECIMEN Ordering Facility: [facility] Address: [address] [place] [address] Performed By: #### 2 4344-4 #### [facility] CLIA [id number] [facility] [address] [place] [address] Carboxyhemoglobin (BldV) [Mass fraction] 1.7 % Normal 0.0-2.0 [facility] Comment on above: Order Comment: Speci men Type: VENOUS BLOOD SPECIMEN Ordering Facility: [facility] Address: [address] [place], [place] [address] Result Comment: Carb oxyhemoglobin Reference Range for Smokers: 2.0-8.0% Performed By: #### 2 4344-4 #### [facility] CLIA [id number] [facility] [address] [place], [place] [address] Chloride [Moles/Vol] 109 mmol/L High 97-105 [facility] Comment on above: Order Comment: Speci men Type: VENOUS BLOOD SPECIMEN Ordering Facility: [facility] Address: [address] [place], [place] [address] Performed By: #### 2 4344-4 #### [facility] CLIA [id number] [facility] [address] [place], [place] [address] CO2 (BldV) [Partial pressure] 43 mm[Hg] Normal 42-55 [facility] Comment on above: Order Comment: Speci men Type: VENOUS BLOOD SPECIMEN Ordering Facility: [facility] Address: [address] [place], [place] [address] Performed By: #### 2 4344-4 #### [facility] CLIA [id number] [facility] [address] [place] [address]77 HCO3 (Bld) [Moles/Vol] 27 mmol/L Normal 24-28 [facility] Comment on above: Order Comment: Speci men Type: VENOUS BLOOD SPECIMEN Ordering Facility: [facility] Address: [address] [place], [place] [address] Performed By: #### 2 4344-4 #### [facility] CLIA [id number] [facility] [address] [place] [address]015 Hemoglobin (Bld) [Mass/Vol] 15.3 g/dL Normal 11.5-15.5 [facility] Comment on above: Order Comment: Speci men Type: VENOUS BLOOD SPECIMEN Ordering Facility: [facility] Address: [address] [place], [place] [address] Performed By: #### 2 4344-4 #### [facility] CLIA [id number] [facility] [address] [place] [address] Lactate [Moles/Vol] 1.2 mmol/L Normal 0.5-2.2 [facility] Comment on above: Order Comment: Speci men Type: VENOUS BLOOD SPECIMEN Ordering Facility: [facility] Address: [address] [place], [place] [address] Performed By: #### 2 4344-4 #### [facility] CLIA [id number] [facility] [address] [place] [address] Methemoglobin (Bld) [Mass fraction] % Normal 0.0-1.5 [facility] Comment on above: Order Comment: Speci men Type: VENOUS BLOOD SPECIMEN Ordering Facility: [facility] Address: [address] [place], [place] [address] Performed By: #### 2 4344-4 #### [facility] CLIA [id number] [facility] [address] [place] [address]774 O2 THERAPY NC = Nasal Cannula Normal [facility] Comment on above: Order Comment: Speci men Type: VENOUS BLOOD SPECIMEN Ordering Facility: [facility] Address: [address] [place], [place] [address] Performed By: #### 2 4344-4 #### [facility] CLIA [id number] [facility] [address] [place] [address] Oxygen (BldV) [Partial pressure] 60 mm[Hg] High 35-45 [facility] Comment on above: Order Comment: Speci men Type: VENOUS BLOOD SPECIMEN Ordering Facility: [facility] Address: [address] [place], [place] [address] Performed By: #### 2 4344-4 #### [facility] CLIA [id number] [facility] [address] [place] [address] Oxygen saturation in Blood 90 % High 60-85 [facility] Comment on above: Order Comment: Speci men Type: VENOUS BLOOD SPECIMEN Ordering Facility: [facility] Address: [address] [place], [place] [address] Performed By: #### 2 4344-4 #### [facility] CLIA [id number] [facility] [address] [place] [address] Oxyhemoglobin (BldV) [Mass fraction] 87 % High 6085 [facility] Comment on above: Order Comment: Speci men Type: VENOUS BLOOD SPECIMEN Ordering Facility: [facility] Address: [address] [place], [place] [address] Performed By: #### 2 4344-4 #### [facility] CLIA [id number] [facility] [address] [place] [address] pH (BldV) 7.42 [pH] Normal 7.32-7.42 [facility] Comment on above: Order Comment: Speci men Type: VENOUS BLOOD SPECIMEN Ordering Facility: [facility] Address: [address] [place] [address] Performed By: #### 2 4344-4 #### [facility] CLIA [id number] [facility] [address] [place] [address] Potassium [Moles/Vol] 4.1 mmol/L Normal 3.5-5.0 [facility] Comment on above: Order Comment: Speci men Type: VENOUS BLOOD SPECIMEN Ordering Facility: [facility] Address: [address] [place] [address] Performed By: #### 2 4344-4 #### [facility] CLIA [id number] [facility] [address] [place] [address] Sodium [Moles/Vol] 144 mmol/L Normal 136-144 [facility] Comment on above: Order Comment: Speci men Type: VENOUS BLOOD SPECIMEN Ordering Facility: [facility] Address: [address] [place] [address] Performed By: #### 2 4344-4 #### [facility] CLIA [id number] [facility] [address] [place], [place] [address] HISTORY PHYSICALon 2 HISTORY PHYSICAL HNO ID: [id number] Author: Shanika Bryan MD Service: ? Author Type: Physician Type: HANDP Filed: 05/26/2021 9:52 PM Note Text: INTERNAL MEDICINE HANDP EXAMINATION SERVICE DATE: 05/26/2021 SERVICE TIME: sob with hypoxia PRIMARY CARE PHYSICIAN: Marcela Buchanan MD, MD Subjective CHIEF COMPLAINT: HISTORY OF PRESENT ILLNESS: Ms. Smith is a 66 year old female with h/o dyslipidemia on statin who comes in with sob for 1 year. PCP prescribed an inhaler albuterol) several months ago because of wheezing. No fever or chills, no leg edema. Quit smoking 35 years ago, denies Smoking marijuana or using any illicit drugs. PAST MEDICAL HISTORY Diagnosis Date - Dyslipidemia History reviewed. No pertinent surgical history. No family history on file. Social History Tobacco Use - Smoking status: Former Smoker - Smokeless tobacco: Never Used - Tobacco comment: 30 YEAR AGO Vaping Use - Vaping Use: Never used Substance Use Topics - Alcohol use: Not Currently - Drug use: Never MEDICATIONS: (Not in a hospital admission) ALLERGIES No Known Allergies COMPLETE REVIEW OF SYSTEMS: GENERAL: No weight loss, malaise or fevers. HEENT: Negative for frequent or significant headaches, No changes in hearing or vision, no nose bleeds or other nasal problems NECK: Negative for goiter, pain or significant neck swelling CARDIOVASCULAR: Negative for chest pain, leg swelling, hypertension, CHF or palpitations GI: No nausea, vomiting, or diarrhea : No history of dysuria, frequency or incontinence [employer]IC: Negative for abnormal vaginal bleeding, abnormal vaginal discharge MUSCULOSKELETAL: Negative for joint pain or swelling, back pain or muscle pain SKIN: Negative for lesions, rash, and itching. PSYCH: Negative for sleep disturbance, mood disorder and recent psychosocial stressors. HEMATOLOGY/LYMPHOLOGY: Negative for prolonged bleeding, bruising easily or swollen nodes. ENDOCRINE: Negative for cold or heat intolerance, polyuria or polydipsia. NEURO: No history of headaches, syncope, paralysis, seizures or tremors Objective PHYSICAL EXAM: Patient Vitals for the past 24 hrs: BP Temp Temp src Pulse Resp SpO2 Weight 05/26/21 1100 123/60 ? ? 68 18 96 % ? 05/26/21 1032 ? ? ? 65 18 (!) 94 % ? 05/26/21 1000 123/66 ? ? 69 18 (!) 92 % ? 05/26/21 0930 124/68 ? 96 % ? 05/26/21 0921 ? (!) 93 % ? 05/26/21 0920 131/60 36.5 ?C (97.7 ?F) Oral 69 18 (!) 88 % 80.3 kg (177 lb) There is no height or weight on file to calculate BMI. GENERAL: Alert, no distress, cooperative SKIN: No rashes or lesions. OROPHARYNX: Oropharynx normal. NECK: No jugulovenous distention, , Supple LUNGS: Lungs clear to auscultation. Good diaphragmatic excursion. CARDIAC: Normal S1 and S2; no gallops ABDOMEN: Abdomen soft, non-tender, BS normal, No masses or organomegaly EXTREMETIES:no edema, , No ulcers NEURO: Alert, oriented X 3, Cranial nerves II-XII intact PULSES: palpable DATA: Diagnostic tests reviewed for today's visit: Results for KASSANDRA SMITH ( ) as of 05/26/2021 12:30 Ref. Range 05/26/2021 09:41 05/26/2021 09:46 05/26/2021 09:59 05/26/2021 10:12 05/26/2021 10:18 Sodium Latest Ref Range: 136 - 144 mmol/L 141 Potassium Latest Ref Range: 3.7 - 5.1 mmol/L 3.8 Chloride Latest Ref Range: 97 - 105 mmol/L 103 CO2 Latest Ref Range: 22 - 30 mmol/L 27 BUN Latest Ref Range: 7 - 21 mg/dL 15 Creatinine Latest Ref Range: 0.58 - 0.96 mg/dL 0.86 Glucose Latest Ref Range: 74 - 99 mg/dL 96 Protein, Total Latest Ref Range: 6.3 - 8.0 g/dL 8.1 (H) Calcium Latest Ref Range: 8.5 - 10.2 mg/dL 9.7 Ionized Calcium Latest Ref Range: 1.08 - 1.30 mmol/L 1.20 Albumin Latest Ref Range: 3.9 - 4.9 g/dL 4.7 Bilirubin, Total Latest Ref Range: 0.2 - 1.3 mg/dL 0.9 Alkaline Phosphatase Latest Ref Range: 34 - 123 U/L 129 (H) ALT Latest Ref Range: 7 - 38 U/L 15 AST Latest Ref Range: 13 - 35 U/L 18 Anion Gap Latest Ref Range: 9 - 18 mmol/L 11 Troponin T Latest Ref Range: 0.000 - 0.029 ng/mL <0.010 NT Pro BNP Latest Ref Range: <125 pg/mL <50 eGFR Latest Ref Range: >=60 mL/min/1.73m? 75 Hematocrit Latest Ref Range: 36.0 - 46.0 % 45.9 Lactate Latest Ref Range: 0.5 - 2.2 mmol/L 1.2 Hemoglobin Total, Whole Blood Latest Ref Range: 11.5 - 15.5 g/dL 15.3 Sodium, Whole Blood Latest Ref Range: 136 - 144 mmol/L 144 Potassium, Whole Blood Latest Ref Range: 3.5 - 5.0 mmol/L 4.1 pH, Venous Latest Ref Range: 7.32 - 7.42 7.42 pCO2, Venous Latest Ref Range: 42 - 55 mmHg 43 pO2, Venous Latest Ref Range: 35 - 45 mmHg 60 (H) Base Excess, Venous Latest Ref Range: 0 - 2 mmol/L 3 (H) Bicarbonate, Venous Latest Ref Range: 24 - 28 mmol/L 27 Oxyhemoglobin, Venous Latest Ref Range: 60 - 85 % 87 (H) Carboxyhemoglobin, Venous Latest Ref Range: 0.0 - 2.0 % 1.7 Methemoglobin, Venous Latest Ref Range: 0.0 - 1.5 % <1.0 O2 Saturation, Venous Latest Ref Range: 60 - 85 % 90 (H) WBC Latest Ref Range: 3.70 - 11.00 k/uL 7 (more content not included)... Normal [facility] NT-proBNP [facility] 05-26 Natriuretic peptide.B prohormone N-Terminal [Mass/Vol] <50 Normal <125 [facility] Comment on above: Order Comment: Speci men Type: ARTERIAL BLOOD SPECIMEN Ordering Facility[facility] Address: [address] [place], [place] [address] Performed By: #### A LLBG #### [facility] CLIA [id number] [facility] [address] [place] [address] NURSING PROGon 05-26-2021 NURSING PROG HNO ID: [id number] Author: Althea Sanchez RN Service: Nursing Author Type: Registered Nurse Type: Nursing Progress Note Filed: 05/26/2021 9:49 PM Note Text: Nursing Progress Note Patient Name: Kassandra Smith Patient Location: [id number] 01 Daily Note: 1930 Assumed care of patient, patient is resting in bed with no current complaints. Bed is low locked and call marrufo is within reach. This note was completed by: Althea Sanchez [facility] NURSING PROG HNO ID: [id number] Author: Roxanne Wild RN Service: Nursing Author Type: Registered Nurse Type: Nursing Progress Note Filed: 05/26/2021 3:26 PM Note Text: Nursing Progress Note Patient Name: Kassandra Smith Patient Location: [id number] Daily Note: Received report from ED RN. 1500: Pt arrived onto unit and into [facility]- on . Walked from cart to bed with steady gait. Vital signs obtained. AANDOx3. Admission assessment complete. Belongings reviewed. Assessment complete as in the NPR.Pt needs met. Possessions and call light in reach. No complaints of pain. RN will review previously placed admitting orders from . This note was completed by: Roxanne Wild [facility] PT panel Coag (PPP)on 2021 INR Coag (PPP) [Relative time] 1.1 {INR} Normal 0.9-1.3 [facility] Comment on above: Order Comment: Speci men Type: BLOOD SPECIMEN Ordering Facility[facility] Address: [facility] [address] Result Comment: Lucy min K Antagonist (VKA) Therapeutic Range: INR 2 to 3 (Target INR of 2.5) Note: For patients treated with VKA drugs, such as warfarin, the [employer] 2012 Guideline recommends a therapeutic INR range of 2 to 3 (target INR of 2.5). This recommendation includes high-risk patients with antiphospholipid syndrome with previous arterial or venous thromboembolism, current-generation mechanical or bioprosthetic aortic heart valve replacement. Note: Patients with mechanical aortic valve replacement and additional risk factors for thromboembolic events (atrial fibrillation, previous thromboembolism, LV dysfunction, hypercoagulable conditions) or an older generation mechanical AVR (i.e., ball in-Cage) or any mechanical MVR should have a INR therapeutic range of 2.5 to 3.5 (target INR of 3). Ke GH, et al. Chest 2012, 141:7S-47S Aida RA, et al. [facility] 2017, 70: 252-289 Performed By: #### 5 7021-8 #### [facility] CLIA [id number] [address] [place] [address] [place] PT Coag (PPP) [Time] 11.3 s Normal 9.7-13.0 [facility] Comment on above: Order Comment: Gricelda new Type: BLOOD SPECIMEN Ordering Facility: [facility] Address: [address] [place] [address] Performed By: #### 5 7021-8 #### [facility] CLIA [id number] [address] [place] [address] [place] TROPONIN Ton 05-26-2021 Troponin T.cardiac [Mass/Vol] ug/L Normal 0.000-0.029 [facility] Comment on above: Order Comment: Gricelda new Type: BLOOD SPECIMEN Ordering Facility: [facility] Address: [address] [place] [address] Performed By: #### 5 7021-8 #### [facility] CLIA [id number] [address] [place] [address] [place] Troponin T.cardiac [Mass/Vol] ug/L Normal 0.000-0.029 [facility] Comment on above: Order Comment: Gricelda new Type: BLOOD SPECIMEN Ordering Facility: [facility] Address: [address] [place] [address] Performed By: #### 5 7021-8 #### [facility] CLIA [id number] [place] [address] [place] Troponin T.cardiac [Mass/Vol] ug/L Normal 0.000-0.029 [facility] Comment on above: Order Comment: Speci men Type: BLOOD SPECIMEN Ordering Facility: [facility] Address: [address] [place], [place] [id number] Performed By: #### 5 7021-8 #### [facility] CLIA [id number] [place] [address] [place] XR CHEST 1V FRONTAL PORTon 0 05-26-2021 XR CHEST 1V FRONTAL PORT * * *Final Report* * * DATE OF EXAM: May 26 2021 9:59AM MMX [id number] - XR CHEST 1V FRONTAL PORT / PROCEDURE REASON: Shortness of breath * * * * Physician Interpretation * * * * EXAMINATION: XR CHEST 1V FRONTAL PORT Clinical History: shortness of breath. Shortness of breath. MQ: XC2_5 Comparison: none available RESULT: Lines, tubes, and devices: none Lungs and pleura: No consolidation. No lung mass. No pleural effusion. Cardiomediastinal silhouette: Normal. Other: - IMPRESSION: No acute radiographic abnormality. Grades 9 12 Tutor: PSCB Transcribe Date/Time: May 26 2021 10:06A Dictated by : AUNDREA CHAUDHARI MD This examination was interpreted and the report reviewed and electronically signed by: AUNDREA CHAUDHARI MD on May 26 2021 10:08AM EST [id number] [facility] CHEST 2 VIEW PA AND LATon CHEST 2 VIEW PA AND LAT Patient Name: KASSANDRA SMITH STUDY: TH CHEST 2 VIEW PA AND LAT; 09/18/2020 9:04 am INDICATION: CHEST X RAY PA AND LATERAL. COMPARISON: 10/18/2019 ACCESSION NUMBER(S): [id number] ORDERING CLINICIAN: MARCELA BUCHANAN FINDINGS: There is no focal lung consolidation or effusion. There is no edema. The cardiac silhouette is within normal limits for size. IMPRESSION: No acute cardiopulmonary process. Electronically signed by: DELFINO WALLACE MD Normal [facility]iology[facility] 09-18-2020 XR Chest 2 Views Normal [facility] 58 Work Phone: Blood Pressure Cuff Sizeon 0 09-17-2020 Fall risk assessment a) No falls within the last year [facility] 5850 Work Phone: Last menstrual period start date remote -[facility] 58 Work Phone: Tobacco use status CP b) No [facility] 58 Work Phone: Blood Pressure Cuff Size Adult [facility] 58 Work Phone: Laboratory - Chemistry and C hemistry - challengeon 09-17-2020 Albumin BCP dye [Mass/Vol] 4.5 g/dL 3.4 - 5.0 [facility] 58 Work Phone: ALP [Catalytic activity/Vol] 114 U/L 33 - 136 [facility] 58 Work Phone: ALT With P-5'-P [Catalytic activity/Vol] 18 U/L 7 - 45 [facility] Work Phone: Comment on above: Patients treated wit h Sulfasalazine may generate falsely decreased results for ALT. Anion gap [Moles/Vol] 10 mmol/L 10 - 20 [facility] 58 Work Phone: AST With P-5'-P [Catalytic activity/Vol] 15 U/L 9 - 39 [facility] 5849 Work Phone: Bilirubin [Mass/Vol] 0.8 mg/dL 0.0 - 1.2 [facility] 5830 Work Phone: Calcium [Mass/Vol] 10.2 mg/dL 8.6 - 10.6 [facility] 58 Work Phone: Chloride [Moles/Vol] 104 mmol/L 98 - 107 [facility] 58 Work Phone: CO2 [Moles/Vol] 33 mmol/L above high threshold 21 - 32 [facility] 58 Work Phone: Creatinine [Mass/Vol] 0.91 mg/dL See Below [facility] 58 Work Phone: Comment on above: Reference Range: 0.5 0 - 1.05 Glucose [Mass/Vol] 77 mg/dL 74 - 99 [facility] 58 Work Phone: Potassium [Moles/Vol] 4.1 mmol/L 3.5 - 5.3 [facility] 58 Work Phone: Protein [Mass/Vol] 7.6 g/dL 6.4 - 8.2 [facility] 58 Work Phone: Sodium [Moles/Vol] 143 mmol/L 136 - 145 [facility] 58 Work Phone: Urea nitrogen [Mass/Vol] 15 mg/dL 6 - 23 [facility] 58 Work Phone: Laboratory - Hematology and Cell countson 09-17-2020 Erythrocyte distribution width (RBC) [Ratio] 12.9 % See Below [facility] 5850 Work Phone: Comment on above: Reference Range: 11. 5 - 14.5 Hematocrit (Bld) [Volume fraction] 49.7 % above high threshold See Below [facility] 5850 Work Phone: Comment on above: Reference Range: 36. 0 - 46.0 Hemoglobin (Bld) [Mass/Vol] 15.4 g/dL See Below [facility] [place] [address] Work Phone: Comment on above: Reference Range: 12. 0 - 16.0 MCHC (RBC) [Mass/Vol] 31.0 g/dL below low threshold See Below [facility] 58 Work Phone: Comment on above: Reference Range: 32. 0 - 36.0 MCV (RBC) [Entitic vol] 103 fL above high threshold 80 - 100 [facility] 58 Work Phone: Platelets (Bld) [#/Vol] 288 10*3/uL 150 - 450 -[facility] 58 Work Phone: RBC (Bld) [#/Vol] 4.82 {x10E12/L} See Below -[facility] [place] [address] Work Phone: Comment on above: Reference Range: 4.0 0 - 5.20 WBC (Bld) [#/Vol] 8.8 10*3/uL 4.4 - 11.3 [facility] [place] [address] Work Phone: Lipid Panelon 09-17-2020 Cholesterol [Mass/Vol] 190 mg/dL 0 - 199 -[place] [address] Work Phone: Comment on above: . AGE DESIRABLE BORD KRISTEN HIGH HIGH 0-19 Y 0 - 169 170 - 199 >/= 200 20-24 Y 0 - 189 190 - 224 >/= 225 >24 Y 0 - 199 200 - 239 >/= 240 All ranges are based on fasting samples. Specific therapeutic targets will vary based on patient-specific cardiac risk.. Pediatric guidelines reference:Pediatrics 2011, 128(S5). Adult guidelines reference: NCEP ATPIII Guidelines, ERICK 2001, 258:2486-97. Venipuncture immediately after or during the administration of Metamizole may lead to falsely low results. Testing should be performed immediately prior to Metamizole dosing. Cholesterol in HDL [Mass/Vol] 37.9 mg/dL Abnormal [facility] 58 Work Phone: Comment on above: . AGE VERY LOW LOW N ORMAL HIGH 0-19 Y < 35 < 40 40-45 ---- 20- 24 Y ---- < 40 >45 ---- >24 Y ---- < 40 40-60 >60. Cholesterol in LDL [Mass/Vol] 126 mg/dL above high threshold 0 - 99 [place] [address] Work Phone: Comment on above: . NEAR BORD AGE SERGIO RABLE OPTIMAL HIGH HIGH VERY HIGH 0-19 Y 0 - 109 --- 110-129 >/= 130 ---- 20-24 Y 0 - 119 --- 120-159 >/= 160 ---- >24 Y 0 - 99 100-129 130-159 160-189 >/=190. Cholesterol.total/Ch olesterol in HDL [Mass ratio] 5.0 {ratio} [place] [address] Work Phone: Comment on above: REF VALUESDESIRABLE < 3.4HIGH RISK > 5.0 Triglyceride [Mass/Vol] 132 mg/dL 0 - 149 [facility] 58 Work Phone: Comment on above: . AGE DESIRABLE BORD KRISTEN HIGH HIGH VERY HIGH 0 D-90 D 19 - 174 ---- ---- ----91 D- 9 Y 0 - 74 75 - 99 >/= 100 ---- 10-19 Y 0 - 89 90 - 129 >/= 130 ---- 20-24 Y 0 - 114 115 - 149 >/= 150 ---- >24 Y 0 - 149 150 - 199 200- 499 >/= 500. Venipuncture immediately after or during the administration of Metamizole may lead to falsely low results. Testing should be performed immediately prior to Metamizole dosing. Lipid Panel 26 mg/dL 0 - 40 [facility] 5895 Work Phone: No Panel Informationon 09-17 >60 >60 [facility] [place] [address] Work Phone: Comment on above: CALCULATIONS OF BRANDYN MATED GFR ARE PERFORMED USING THE MDRD STUDY EQUATION FOR THE IDMS-TRACEABLE CREATININE METHODS. CLIN CHEM 2007;53:766-72 0.0 {/100_WBC} 0.0-0.0 [facility] [place] [address] Work Phone: MAMM DIGITAL SCRN BILATERALo n 11-09-2016 MAMM DIGITAL SCRN BILATERAL SCREENING BILATERAL DIGITAL MAMMOGRAM.Clinical Data: Screening. Comparison: 11/27/2014, 11/05/2013, 10/26/2012.Mammographic findings:There are scattered fibroglandular densities. No suspicious masses,architectural distortion, or suspicious calcifications are identifiedin either breast. There is a stable masslike asymmetry in theposterior superior aspect of the right breast on the MLO view. Therehas been no significant interval change.This examination was reviewed with the aid of CAD (computer assisteddetection).IMPRESS ION AND RECOMMENDATION: No mammographic evidence of malignancy. Recommendations are for thepatient to return for annual screening mammography in one year orsooner if clinically indicated.Category 2: Benign findingFalse negative rate of mammography is approximately 10 to 20%.Management of a palpable abnormality must be based upon clinicalgrounds.Technologi st: CGDictated By: CORTEZ HARGROVE MDSSigned By: Nazario HARGROVE MD Out: 11/09/16 10:45:20 Normal [facility] Vital Signs Date Time Vital Sign Value Performing Clinician Facility 09-20-2024 10:230400 Body height 170.[address] Jenny Correa MD Work Phone: [facility] 09-20-2024 10:230400 Body mass index (BMI) [Ratio] 27.8 kg/m2 Dr. Jenny Correa MD Work Phone: [facility] 09-20-2024 10:23-0400 Body weight 80.[address] Jenny Correa MD Work Phone: [facility] 09-20-2024 10:23-0400 Diastolic blood pressure 96 mm[Hg] Dr. Jenny Correa MD Work Phone: [facility] 09-20-2024 10:23-0400 Heart rate 75 /min Dr. Jenny Correa MD Work Phone: [facility] 09-20-2024 10:23-0400 Systolic blood pressure 138 mm[Hg] Dr. Jenny Correa MD Work Phone: [facility] 08-29-2024 14:21-0400 Body mass index (BMI) [Ratio] 27.88 kg/m2 Bright Bergfreddy KWAN Work Phone: [facility] 08-29-2024 14:21-0400 Body weight 80.74 kg Bright Bergfreddy Work Phone: [facility] 08-29-2024 14:21-0400 Diastolic blood pressure 70 mm[Hg] Brightjanine Bergfreddy Work Phone: [facility] 08-29-2024 14:21-0400 Systolic blood pressure 102 mm[Hg] Bright Bergfreddy KWAN Work Phone: [facility] 08-19-2024 08:51-0400 Body height 170.2 cm Kayode Mckeon MD Work Phone: [facility] 08-19-2024 08:51-0400 Diastolic blood pressure 78 mm[Hg] Kayode Mckeon MD Work Phone: [facility] 08-19-2024 08:51-0400 Heart rate 81 /min Kayode Mckeon MD Work Phone: [facility] 08-19-2024 08:51-0400 SaO2% (BldA) [Mass fraction] 91 % Kayode Mckeon MD Work Phone: [facility] 08-19-2024 08:51-0400 Systolic blood pressure 132 mm[Hg] Kayode Mckeon MD Work Phone: [facility] 08-17-2024 15:30-0400 Body temperature 97.2 [degF] Jordan Maher MD Work Phone: [facility] 08-17-2024 15:30-0400 Diastolic blood pressure 58 mm[Hg] Jordan Maher MD Work Phone: [facility] 08-17-2024 15:30-0400 Heart rate 82 /min Jordan Maher MD Work Phone: [facility] 08-17-2024 15:30-0400 Respiratory rate 18 /min Jordan Maher MD Work Phone: [facility] 08-17-2024 15:30-0400 SaO2% (BldA) [Mass fraction] 92 % Jordan Maher MD Work Phone: [facility] 08-17-2024 15:30-0400 Systolic blood pressure 116 mm[Hg] Jordan Maher MD Work Phone: [facility] 08-14-2024 08:41-0400 Body height 170.2 cm Jordan Maher MD Work Phone: [facility] 08-14-2024 08:41-0400 Body mass index (BMI) [Ratio] 29.35 kg/m2 Jordan Maher MD Work Phone: [facility] 08-14-2024 08:41-0400 Body weight 85 kg Jordan Maher MD Work Phone: [facility] 08-01-2024 10:04-0400 Diastolic blood pressure 63 mm[Hg] Bright Escobedo DO Work Phone: [facility] 08-01-2024 10:04-0400 Systolic blood pressure 94 mm[Hg] Bright Escobedo DO Work Phone: [facility] 07-02-2024 10:17-0400 Body height 172.7 cm Jordan Maher MD Work Phone: [facility] 07-02-2024 10:17-0400 Body mass index (BMI) [Ratio] 27.37 kg/m2 Jordan Maher MD Work Phone: [facility] 07-02-2024 10:17-0400 Body weight 81.65 kg Jordan Maher MD Work Phone: [facility] 06-13-2024 13:00-0400 Body temperature 97.9 [degF] Dr. Jenny Correa MD Work Phone: [facility] 06-13-2024 13:00-0400 Diastolic blood pressure 56 mm[Hg] Dr. Jenny Correa MD Work Phone: [facility] 06-13-2024 13:00-0400 Heart rate 76 /min Dr. Jenny Correa MD Work Phone: [facility] 06-13-2024 13:00-0400 Respiratory rate 16 /min Dr. Jenny Correa MD Work Phone: [facility] 06-13-2024 13:00-0400 SaO2% (BldA) [Mass fraction] 92 % Dr. Jenny Correa MD Work Phone: [facility] 06-13-2024 13:00-0400 Systolic blood pressure 106 mm[Hg] Dr. Jenny Correa MD Work Phone: [facility] 06-13-2024 12:30-0400 Inhaled oxygen flow rate 2 L/min Dr. Jenny Correa MD Work Phone: [facility] 06-13-2024 08:15-0400 Body mass index (BMI) [Ratio] 29 kg/m2 Dr. Jenny Correa MD Work Phone: [facility] 06-13-2024 08:15-0400 Body weight 83.[address] Jenny Correa MD Work Phone: [facility] 06-10-2024 11:39-0400 Body height 170.2 cm Debra Detec 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 Work Phone: [facility] 06-10-2024 11:39-0400 Body mass index (BMI) [Ratio] 28.19 kg/m2 Debra Detec 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 Work Phone: [facility] 06-10-2024 11:39-0400 Body weight 81.65 kg Debra Detec 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 Work Phone: [facility] 06-05-2024 09:39-0400 Body height 170.2 cm Par 2 [facility] 06-05-2024 09:39-0400 Body mass index (BMI) [Ratio] 28.19 kg/m2 Par 2 [facility] 06-05-2024 09:39-0400 Body weight 81.65 kg Par 2 [facility] 05-31-2024 14:19-0400 Body height 170.2 cm Bright Escobedo DO Work Phone: [facility] 05-31-2024 14:19-0400 Body mass index (BMI) [Ratio] 28.19 kg/m2 Bright Bergeri DO Work Phone: [facility] 05-31-2024 14:19-0400 Body weight 81.65 kg Brightjanine Bergeri DO Work Phone: [facility] 05-31-2024 14:19-0400 Diastolic blood pressure 66 mm[Hg] Bright Tayomaryeri DO Work Phone: [facility] 05-31-2024 14:19-0400 Heart rate 92 /min Bright Gurefugio DO Work Phone: [facility] 05-31-2024 14:19-0400 Systolic blood pressure 127 mm[Hg] Bright Escobedo DO Work Phone: [facility] 05-15-2024 10:59-0400 Diastolic blood pressure 65 mm[Hg] Ivan Apicella PA-C Work Phone: [facility] 05-15-2024 10:59-0400 Heart rate 79 /min Ivan Apicella PA-C Work Phone: [facility] 05-15-2024 10:59-0400 Respiratory rate 14 /min Ivan Apicella PA-C Work Phone: [facility] 05-15-2024 10:59-0400 SaO2% (BldA) [Mass fraction] 91 % Ivan Apicella PA-C Work Phone: [facility] 05-15-2024 10:59-0400 Systolic blood pressure 128 mm[Hg] Ivan Apicella PA-C Work Phone: [facility] 02-12-2024 10:24-0500 Body height 170.2 cm Ivan Apicella PA-C Work Phone: [facility] 02-12-2024 10:24-0500 Body mass index (BMI) [Ratio] 31.01 kg/m2 Ivan Apicella PA-C Work Phone: [facility] 02-12-2024 10:24-0500 Body weight 89.81 kg Ivan Apicella PA-C Work Phone: [facility] 02-12-2024 10:24-0500 Diastolic blood pressure 68 mm[Hg] Ivan Apicella PA-C Work Phone: [facility] 02-12-2024 10:24-0500 Heart rate 79 /min Ivan Apicella PA-C Work Phone: [facility] 02-12-2024 10:24-0500 SaO2% (BldA) [Mass fraction] 94 % Ivan Apicella PA-C Work Phone: [facility] 02-12-2024 10:24-0500 Systolic blood pressure 112 mm[Hg] Ivan Apicella PA-C Work Phone: [facility] 01-23-2024 08:29-0500 Body height 170.2 cm Debra Detec 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 Work Phone: [facility] 01-23-2024 08:29-0500 Body mass index (BMI) [Ratio] 28.19 kg/m2 Debra Detec 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 Work Phone: [facility] 01-23-2024 08:29-0500 Body weight 81.65 kg Debra Deniseec 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 Work Phone: [facility] 01-19-2024 13:36-0500 Diastolic blood pressure 82 mm[Hg] Bright Bergeri DO Work Phone: [facility] 01-19-2024 13:36-0500 Systolic blood pressure 120 mm[Hg] Bright Bergeri DO Work Phone: [facility] 01-08-2024 13:46-0500 Body height 170.2 cm Ivan Apicella PA-C Work Phone: [facility] 01-08-2024 13:46-0500 Body mass index (BMI) [Ratio] 31.01 kg/m2 Ivan Apicella PA-C Work Phone: [facility] 01-08-2024 13:46-0500 Body weight 89.81 kg Ivan Apicella PA-C Work Phone: [facility] 01-08-2024 13:46-0500 Diastolic blood pressure 74 mm[Hg] Ivan Apicella PA-C Work Phone: [facility] 01-08-2024 13:46-0500 Heart rate 73 /min Ivan Apicella PA-C Work Phone: [facility] 01-08-2024 13:46-0500 SaO2% (BldA) [Mass fraction] 92 % Ivan Apicella PA-C Work Phone: [facility] 01-08-2024 13:46-0500 Systolic blood pressure 110 mm[Hg] Ivan Apicella PA-C Work Phone: [facility] 01-05-2024 11:53-0500 Body temperature 97.5 [degF] Nilsa Quintero DO Work Phone: [facility] 01-05-2024 11:53-0500 Diastolic blood pressure 50 mm[Hg] Nilsa Quintero DO Work Phone: [facility] 01-05-2024 11:53-0500 Heart rate 68 /min Nilsa Quintero DO Work Phone: [facility] 01-05-2024 11:53-0500 Respiratory rate 16 /min Nilsa Quintero DO Work Phone: [facility] 01-05-2024 11:53-0500 SaO2% (BldA) [Mass fraction] 91 % Nilsa Quintero DO Work Phone: [facility] 01-05-2024 11:53-0500 Systolic blood pressure 91 mm[Hg] Nilsa Quintero DO Work Phone: [facility] 01-04-2024 09:47-0500 Body mass index (BMI) [Ratio] 30.27 kg/m2 Nilsa Quintero DO Work Phone: [facility] 01-04-2024 09:47-0500 Body weight 87.7 kg Nilsa Quintero DO Work Phone: [facility] Comment on above: weighed on previous shift 01-03-2024 04:00-0500 Body height 170.2 cm Nilsa Quintero DO Work Phone: [facility] 10-23-2023 08:00-0400 Body height 170.2 cm Kayode Mckeon MD Work Phone: [facility] 10-23-2023 08:00-0400 Body mass index (BMI) [Ratio] 31.01 kg/m2 Kayode Mckeon MD Work Phone: [facility] 10-23-2023 08:00-0400 Body weight 89.81 kg Kayode Mckeon MD Work Phone: [facility] 10-23-2023 08:00-0400 Diastolic blood pressure 70 mm[Hg] Kayode Mckeon MD Work Phone: [facility] 10-23-2023 08:00-0400 Heart rate 77 /min Kayode Mckeon MD Work Phone: [facility] 10-23-2023 08:00-0400 SaO2% (BldA) [Mass fraction] 92 % Kayode Mckeon MD Work Phone: [facility] 10-23-2023 08:00-0400 Systolic blood pressure 122 mm[Hg] Kayode Mckeon MD Work Phone: [facility] 10-04-2023 13:02-0400 Body height 170.2 cm Brightjanine Escobedo DO Work Phone: [facility] 10-04-2023 13:02-0400 Body mass index (BMI) [Ratio] 30.38 kg/m2 Bright Escobedo DO Work Phone: [facility] 10-04-2023 13:02-0400 Body weight 88 kg Bright Escobedo DO Work Phone: [facility] 10-04-2023 13:02-0400 Diastolic blood pressure 66 mm[Hg] Brightjanine Bergfreddy Work Phone: [facility] 10-04-2023 13:02-0400 Systolic blood pressure 104 mm[Hg] Bright Gurefugio Work Phone: [facility] 09-29-2023 10:00-0400 Diastolic blood pressure 80 mm[Hg] Gonzalez Ayers MD Work Phone: [facility] 09-29-2023 10:00-0400 Heart rate 73 /min Gonzalez Ayers MD Work Phone: [facility] 09-29-2023 10:00-0400 Respiratory rate 16 /min Gonzalez Ayers MD Work Phone: [facility] 09-29-2023 10:00-0400 SaO2% (BldA) [Mass fraction] 95 % Gonzalez Ayers MD Work Phone: [facility] 09-29-2023 10:00-0400 Systolic blood pressure 150 mm[Hg] Gonzalez Ayers MD Work Phone: [facility] 09-29-2023 09:40-0400 Body temperature 97.9 [degF] Gonzalez Ayers MD Work Phone: [facility] 09-29-2023 07:35-0400 Body height 170.2 cm Gonzalez Ayers MD Work Phone: [facility] 09-29-2023 07:35-0400 Body mass index (BMI) [Ratio] 30.39 kg/m2 Gonzalez Ayers MD Work Phone: [facility] 09-29-2023 07:35-0400 Body weight 88 kg Gonzalez Ayers MD Work Phone: [facility] 07-20-2023 08:51-0400 Body height 170.2 cm Ivan Apicella PA-C Work Phone: [facility] 07-20-2023 08:51-0400 Body mass index (BMI) [Ratio] 31.01 kg/m2 Ivan Apicella PA-C Work Phone: [facility] 07-20-2023 08:51-0400 Body weight 89.81 kg Ivan Apicella PA-C Work Phone: [facility] 07-20-2023 08:51-0400 Diastolic blood pressure 72 mm[Hg] Ivan Apicella PA-C Work Phone: [facility] 07-20-2023 08:51-0400 Heart rate 73 /min Ivan Apicella PA-C Work Phone: [facility] 07-20-2023 08:51-0400 SaO2% (BldA) [Mass fraction] 95 % Ivan Apicella PA-C Work Phone: [facility] 07-20-2023 08:51-0400 Systolic blood pressure 132 mm[Hg] Ivan Apicella PA-C Work Phone: [facility] 06-16-2023 13:07-0400 Body height 170.2 cm Ivan Apicella PA-C Work Phone: [facility] 06-16-2023 13:07-0400 Body mass index (BMI) [Ratio] 28.19 kg/m2 Ivan Apicella PA-C Work Phone: [facility] 06-16-2023 13:07-0400 Body weight 81.65 kg Ivan Apicella PA-C Work Phone: [facility] 06-16-2023 13:07-0400 Diastolic blood pressure 68 mm[Hg] Ivan Apicella PA-C Work Phone: [facility] 06-16-2023 13:07-0400 Heart rate 82 /min Ivan Apicella PA-C Work Phone: [facility] 06-16-2023 13:07-0400 SaO2% (BldA) [Mass fraction] 93 % Ivan Apicella PA-C Work Phone: [facility] 06-16-2023 13:07-0400 Systolic blood pressure 110 mm[Hg] Ivan Apicella PA-C Work Phone: [facility] 05-18-2023 09:01-0400 Diastolic blood pressure 72 mm[Hg] Ivan Apicella PA-C Work Phone: [facility] 05-18-2023 09:01-0400 Heart rate 71 /min Ivan Apicella PA-C Work Phone: [facility] 05-18-2023 09:01-0400 Respiratory rate 16 /min Ivan Apicella PA-C Work Phone: [facility] 05-18-2023 09:01-0400 SaO2% (BldA) [Mass fraction] 93 % Ivan Apicella PA-C Work Phone: [facility] 05-18-2023 09:01-0400 Systolic blood pressure 120 mm[Hg] Ivan Apicella PA-C Work Phone: [facility] 04-21-2023 10:43-0500 Body height 170.2 cm Ivan Apicella PA-C Work Phone: [facility] 04-21-2023 10:43-0500 Body weight 81.65 kg Ivan Apicella PA-C Work Phone: [facility] 04-21-2023 10:43-0500 Diastolic blood pressure 72 mm[Hg] Ivan Apicella PA-C Work Phone: [facility] 04-21-2023 10:43-0500 Heart rate 74 /min Ivan Apicella PA-C Work Phone: [facility] 04-21-2023 10:43-0500 SaO2% (BldA) [Mass fraction] 96 % Ivan Apicella PA-C Work Phone: [facility] 04-21-2023 10:43-0500 Systolic blood pressure 114 mm[Hg] Ivan Apicella PA-C Work Phone: [facility] 04-12-2023 11:55-0500 Body temperature 97.5 [degF] Naty Hadoswald DO Work Phone: [facility] 04-12-2023 11:55-0500 Diastolic blood pressure 60 mm[Hg] Naty Hall DO Work Phone: [facility] 04-12-2023 11:55-0500 Heart rate 65 /min Naty Hall DO Work Phone: [facility] 04-12-2023 11:55-0500 Respiratory rate 18 /min Naty Hall DO Work Phone: [facility] 04-12-2023 11:55-0500 SaO2% (BldA) [Mass fraction] 100 % Naty Hall DO Work Phone: [facility] 04-12-2023 11:55-0500 Systolic blood pressure 111 mm[Hg] Naty Hall DO Work Phone: [facility] 04-12-2023 09:49-0500 Body mass index (BMI) [Ratio] 27.88 kg/m2 Naty Hall DO Work Phone: [facility] 04-12-2023 09:49-0500 Body weight 80.74 kg Naty Hall DO Work Phone: [facility] 03-24-2023 09:01-0500 Body height 170.2 cm Ivan Apicella PA-C Work Phone: [facility] 03-24-2023 09:01-0500 Body weight 78.47 kg Ivan Apicella PA-C Work Phone: [facility] 03-24-2023 09:01-0500 Diastolic blood pressure 68 mm[Hg] Ivan Apicella PA-C Work Phone: [facility] 03-24-2023 09:01-0500 Heart rate 67 /min Ivan Apicella PA-C Work Phone: [facility] 03-24-2023 09:01-0500 SaO2% (BldA) [Mass fraction] 93 % Ivan Apicella PA-C Work Phone: [facility] 03-24-2023 09:01-0500 Systolic blood pressure 114 mm[Hg] Ivan Apicella PA-C Work Phone: [facility] 11-25-2022 09:09-0400 Body height 170.2 cm Kayode Mckeon MD Work Phone: [facility] 11-25-2022 09:09-0400 Body weight 78.2 kg Kayode Mckeon MD Work Phone: [facility] 11-25-2022 09:09-0400 Diastolic blood pressure 68 mm[Hg] Kayode Mckeon MD Work Phone: [facility] 11-25-2022 09:09-0400 Heart rate 75 /min Kayode Mckeon MD Work Phone: [facility] 11-25-2022 09:09-0400 SaO2% (BldA) [Mass fraction] 87 % Kayode Mckeon MD Work Phone: [facility] 11-25-2022 09:09-0400 Systolic blood pressure 132 mm[Hg] Kayode Mckeon MD Work Phone: [facility] 10-11-2022 08:29-0400 Body height 170.2 cm Naty Hall DO Work Phone: [facility] 10-11-2022 08:29-0400 Body mass index (BMI) [Ratio] 26.94 kg/m2 Naty Hall DO Work Phone: [facility] 10-11-2022 08:29-0400 Body weight 78.02 kg Naty Hall DO Work Phone: [facility] 10-11-2022 08:29-0400 Diastolic blood pressure 80 mm[Hg] Naty Hall DO Work Phone: [facility] 10-11-2022 08:29-0400 Heart rate 86 /min Naty Hall DO Work Phone: [facility] 10-11-2022 08:29-0400 SaO2% (BldA) [Mass fraction] 88 % Naty Hall DO Work Phone: [facility] 10-11-2022 08:29-0400 Systolic blood pressure 110 mm[Hg] Naty Hall DO Work Phone: [facility] 11-09-2021 09:07-0400 Body height 170.18 cm Naty Hall Work Phone: OF[facility]Aiglhptfuk-Mncn a Work Phone: 11-09-2021 09:07-0400 Body mass index (BMI) [Ratio] 27.88 kg/m2 Naty Hall Work Phone: QO-Rkcjknfmiy-Igco a Work Phone: 11-09-2021 09:07-0400 Body surface area Derived from formula 1.92 m2 Naty Hall Work Phone: HV-Kjkzufjjsc-Rxpi a Work Phone: 11-09-2021 09:07-0400 Body weight 80.74 kg Naty Hall Work Phone: BA-Ftsdsbydqj-Mope a Work Phone: 11-09-2021 09:07-0400 Diastolic blood pressure 64 mm[Hg] Naty Hall Work Phone: YE-Ytltafgvmz-Srbg a Work Phone: 11-09-2021 09:07-0400 Heart rate 71 /min Naty Hall Work Phone: YS-Tuyobejjrl-Auxr a Work Phone: 11-09-2021 09:07-0400 SaO2% (BldA) [Mass fraction] 99 % Naty Hall Work Phone: BA-Yyhiquhiqk-Kxji a Work Phone: 11-09-2021 09:07-0400 Systolic blood pressure 98 mm[Hg] Naty Hall Work Phone: CH-Uirhknixpf-Octy a Work Phone: 11-01-2021 11:15-0400 Body height 170.18 cm Naty Hall Work Phone: [facility] Work Phone: 11-01-2021 11:15-0400 Body mass index (BMI) [Ratio] 27.88 kg/m2 Naty Tejadaoswald Work Phone: [facility] Work Phone: 11-01-2021 11:15-0400 Body surface area Derived from formula 1.92 m2 Naty Hall Work Phone: [facility] Work Phone: 11-01-2021 11:15-0400 Body weight 80.74 kg Naty Hall Work Phone: [facility] Work Phone: 11-01-2021 11:15-0400 Diastolic blood pressure 69 mm[Hg] Naty Hall Work Phone: [facility] Work Phone: 11-01-2021 11:15-0400 Systolic blood pressure 105 mm[Hg] Naty Hall Work Phone: [facility] Work Phone: 11-01-2021 11:15-0400 1 1 Naty Hall Work Phone: [facility] Work Phone: Comment on above: GRAV PARA 10-22-2021 13:26-0400 Body height 170.2 cm Kayode Mckeon MD Work Phone: [facility] 10-22-2021 13:26-0400 Body weight 79.83 kg Kayode Mckeon MD Work Phone: [facility] 10-22-2021 13:26-0400 Diastolic blood pressure 64 mm[Hg] Kayode Mckeon MD Work Phone: [facility] 10-22-2021 13:26-0400 Heart rate 68 /min Kayode Mckeon MD Work Phone: [facility] 10-22-2021 13:26-0400 SaO2% (BldA) [Mass fraction] 91 % Kayode Mckeon MD Work Phone: [facility] 10-22-2021 13:26-0400 Systolic blood pressure 108 mm[Hg] Kayode Mckeon MD Work Phone: [facility] 08-09-2021 13:36-0400 Body height 170.18 cm Naty Hall Work Phone: [facility] 10[facility] Work Phone: 08-09-2021 13:36-0400 Body mass index (BMI) [Ratio] 27.1 kg/m2 Naty Hall Work Phone: [facility] Work Phone: 08-09-2021 13:36-0400 Body surface area Derived from formula 1.9 m2 Naty Hall Work Phone: [facility] 1053 Work Phone: 08-09-2021 13:36-0400 Body temperature 98 [degF] Naty Hall Work Phone: [facility] Work Phone: 08-09-2021 13:36-0400 Body weight 78.47 kg Naty Hall Work Phone: [facility] 10[facility] Work Phone: 08-09-2021 13:36-0400 Diastolic blood pressure 72 mm[Hg] Naty Hall Work Phone: [facility] Work Phone: 08-09-2021 13:36-0400 Heart rate 71 /min Naty Hall Work Phone: [facility] Work Phone: 08-09-2021 13:36-0400 SaO2% (BldA) [Mass fraction] 92 % Naty Hall Work Phone: [facility] 1058 Work Phone: 08-09-2021 13:36-0400 Systolic blood pressure 100 mm[Hg] Naty Mcgee Isabel Work Phone: [facility] Work Phone: 07-19-2021 11:04-0400 Body height 171 cm Kayode Mckeon MD Work Phone: [facility] 07-19-2021 11:04-0400 Body weight 80.2 kg Kayode Mckeon MD Work Phone: [facility] 07-19-2021 11:04-0400 Diastolic blood pressure 70 mm[Hg] Kayode Mckeon MD Work Phone: [facility] 07-19-2021 11:04-0400 Heart rate 74 /min Kayode Mckeon MD Work Phone: [facility] 07-19-2021 11:04-0400 SaO2% (BldA) [Mass fraction] 90 % Kayode Mckeon MD Work Phone: [facility] 07-19-2021 11:04-0400 Systolic blood pressure 104 mm[Hg] Kayode Mckeon MD Work Phone: [facility] 06-21-2021 16:02-0400 Body height 170.2 cm Karan Fuentes MD Work Phone: [facility] 06-21-2021 16:02-0400 Body weight 82.87 kg Karan Fuentes MD Work Phone: [facility] 06-21-2021 16:02-0400 Diastolic blood pressure 66 mm[Hg] Karan Fuentes MD Work Phone: [facility] 06-21-2021 16:02-0400 Heart rate 68 /min Karan Fuentes MD Work Phone: [facility] 06-21-2021 16:02-0400 Systolic blood pressure 118 mm[Hg] Karan Fuentes MD Work Phone: [facility] 09-17-2020 11:50-0400 Body height 170.18 cm Marcela Buchanan Work Phone: [facility] Work Phone: 09-17-2020 11:50-0400 Body mass index (BMI) [Ratio] 27.32 kg/m2 Marcela Buchanan Work Phone: [facility] Work Phone: 09-17-2020 11:50-0400 Body surface area Derived from formula 1.91 m2 Marcela Buchanan Work Phone: [facility] Work Phone: 09-17-2020 11:50-0400 Body temperature 97.3 [degF] Marcela Buchanan Work Phone: [facility] Work Phone: 09-17-2020 11:50-0400 Body weight 79.13 kg Marcela Buchanan Work Phone: [facility] Work Phone: 09-17-2020 11:50-0400 Diastolic blood pressure 58 mm[Hg] Marcela Buchanan Work Phone: [facility] Work Phone: 09-17-2020 11:50-0400 Heart rate 95 /min Marcela Buchanan Work Phone: [facility] Work Phone: 09-17-2020 11:50-0400 SaO2% (BldA) [Mass fraction] 97 % Marcela Buchanan Work Phone: [facility] Work Phone: 09-17-2020 11:50-0400 Systolic blood pressure 100 mm[Hg] Marcela Buchanan Work Phone: [facility] 1810 Work Phone: Encounters Encounter Date Encounter Type Care Provider Facility Start: 09-26-2024 ambulatory Mireya Purcell Faci lity:[facility] Start: 09-24-2024 ambulatory [facility] Start: 09-20-2024 End: 09-20-2024 ambulatory [facility] Start: 09-20-2024 End: 09-20-[address] Jenny Correa MD -[facility] Work Phone: Start: 09-20-2024 End: 09-20-[address] Jenny Correa MD Work Phone: -[facility] Start: 09-17-2024 End: 09-17-2024 ambulatory [facility] Start: 09-13-2024 End: 09-13-2024 ambulatory [facility] Start: 09-10-2024 End: 09-10-2024 ambulatory JORDAN Barlow [facility] Start: 08-29-2024 End: 08-29-2024 Transitional care manage srvc 14 day discharge Bright Escobedo Work Phone: [facility] Comment on above: Encounter for suppor t and coordination of transition of care (Primary Dx); S/P right rotator cuff repair; Acute postoperative respiratory insufficiency; ILD (interstitial lung disease) (Multi) Start: 08-29-2024 End: 08-29-2024 ambulatory [facility] Start: 08-21-2024 End: 08-21-2024 Telephone encounter Kayode Mckeon MD Work Phone: Pulmonary Medicine Comment on above: Results (Oximetry) Start: 08-21-2024 End: 08-21-2024 [facility] Comment on above: Spirometry Start: 08-21-2024 End: 08-21-2024 Patient encounter procedure [facility] Work Phone: Pulmonary Medicine Start: 08-20-2024 End: 08-20-2024 Postop follow up visit related to original px Jordan Maher MD Work Phone: [facility] 4 Comment on above: Strain of tendon of right rotator cuff, subsequent encounter Start: 08-20-2024 End: 08-21-2024 ambulatory JORDAN MAHER [facility] Start: 08-19-2024 End: 08-19-2024 Patient Outreach Jaquelin Blackman RN Work Phone: [employer] Comment on above: Transition Of Care ( Chart review ) Spirometry Hypersensitivity pne umonitis (HCC) (Primary Dx); Asthma, unspecified asthma severity, unspecified whether complicated, unspecified whether persistent (HCC) Start: 08-14-2024 End: 08-17-2024 Evaluation and management of inpatient Jordan Maher MD Work Phone: [facility] 7 Comment on above: Rotator cuff strain, right, initial encounter (Primary Dx); Eczema, unspecified type Start: 08-13-2024 Non-patient / Non-visit Dr. Jenny gonzalez MD -[facility] Work Phone: Start: 08-01-2024 End: 08-01-2024 Encounter for other preprocedural examination BRIGHT Marcos [facility] Start: 08-01-2024 End: 08-02-2024 ambulatory [facility] Start: 08-01-2024 End: 08-01-2024 Office outpatient visit 15 minutes Bright Escobedo DO Work Phone: [facility] Comment on above: Colon cancer screeni ng (Primary Dx); Hyperlipidemia, unspecified hyperlipidemia type; Tear of right rotator cuff, unspecified tear extent, unspecified whether traumatic; Visit for pre-operative examination Start: 08-01-2024 End: 08-01-2024 Preprocedural examination done Bright Escobedo DO Work Phone: [facility] Work Phone: Start: 07-02-2024 End: 07-02-2024 Office outpatient visit 25 minutes Jordan Maher MD Work Phone: [facility] 4 Comment on above: Rotator cuff strain, right, initial encounter (Primary Dx) Start: 07-02-2024 End: 07-03-2024 ambulatory JORDAN MAHER [facility] Start: 06-20-2024 End: 06-20-2024 ambulatory DEBRA MEJIA [facility] Start: 06-20-2024 End: 06-20-2024 Subsequent hospital visit by physician Brea [id number] Mri [facility] Comment on above: Acute pain of right shoulder Start: 06-13-2024 End: 06-13-2024 Admission to same day surgery center Dr. Jenny Correa MD [facility] Start: 06-13-2024 End: 06-13-2024 ambulatory Mireya Barlow CNP [place] Facility:[facility] Start: 06-10-2024 End: 06-10-2024 Office outpatient visit 15 minutes Debra Mejia 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 Work Phone: [facility] 4 Comment on above: Acute pain of right shoulder (Primary Dx) Start: 06-10-2024 End: 06-11-2024 ambulatory DEBRA MEJIA [facility] Start: 06-05-2024 End: 06-05-2024 Subsequent hospital visit by physician Pérez Chadwicktr Mammo 2 [facility] Comment on above: Breast cancer screen ing by mammogram Start: 06-05-2024 End: 06-05-2024 ambulatory BRIGHT ESCOBEDO [facility] Start: 05-31-2024 End: 05-31-2024 Assay of hemosiderin, quant Bright Escobedo DO Work Phone: [facility] Work Phone: Start: 05-31-2024 End: 05-31-2024 Patient encounter procedure Bright Escobedo DO Work Phone: [facility] Comment on above: Routine general medi kenroy examination at health care facility (Primary Dx); Current moderate episode of major depressive disorder, unspecified whether recurrent (Multi); Closed fracture of multiple ribs of right side, initial encounter; Anxiety; Hyperlipidemia, unspecified hyperlipidemia type; Breast cancer screening by mammogram; Well adult exam Start: 05-31-2024 End: 05-31-2024 Patient encounter status Bright Escobedo DO Work Phone: [facility] Work Phone: Start: 05-31-2024 End: 05-31-2024 ambulatory GLENHAVEN Marcos [facility] Ambulatory Start: 05-31-2024 End: 05-31-2024 Encounter for general adult medical examination without abnormal findings [facility] Start: 05-15-2024 End: 05-15-2024 Telephone encounter María GALARZA [facility] Comment on above: Med Change Request Start: 05-15-2024 End: 05-15-2024 Office outpatient visit 15 minutes Ivan Talavera PA-C Work Phone: [facility]monary Medicine Comment on above: Uncomplicated asthma , unspecified asthma severity, unspecified whether persistent (HCC) (Primary Dx); Hypersensitivity pneumonia (HCC) Start: 05-15-2024 End: 05-15-2024 ambulatory IVAN TALAVERA [facility] Comment on above: Spirometry Start: 05-15-2024 End: 05-15-2024 Patient encounter procedure [facility]m [facility] Work Phone: [facility] Start: 02-12-2024 End: 02-12-2024 Telephone encounter Ivan Talavera PA-C Work Phone: [facility] Start: 02-12-2024 End: 02-12-2024 Office outpatient visit 15 minutes Ivan Talavera PA-C Work Phone: [facility] Comment on above: Hypersensitivity pne umonitis (HCC) (Primary Dx); Closed fracture of multiple ribs of right side with routine healing, subsequent encounter Start: 02-12-2024 End: 02-12-2024 ambulatory IVAN TALAVERA Facility:[facility] Start: 01-23-2024 End: 01-23-2024 ambulatory [facility] Start: 01-23-2024 End: 01-23-2024 Office outpatient new 30 minutes Debra Mejia 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 Work Phone: [facility] 4 Comment on above: Right rotator cuff t endonitis (Primary Dx); Acute pain of right shoulder Start: 01-23-2024 End: 01-23-2024 ambulatory DEBRA Alicia [facility] Start: 01-19-2024 End: 01-19-2024 Transitional care manage srvc 14 day discharge Bright Escobedo Work Phone: [facility] Comment on above: Encounter for suppor t and coordination of transition of care (Primary Dx); Closed fracture of multiple ribs of right side, initial encounter; Acute pain of right shoulder; Stress incontinence, female Start: 01-19-2024 End: 01-19-2024 ambulatory [facility] Start: 01-08-2024 End: 01-08-2024 Patient encounter procedure [facility] Work Phone: [facility]monary Medicine Start: 01-08-2024 End: 01-16-2024 Telephone encounter Ivan Talavera PA-C Work Phone: [facility] Start: 01-08-2024 End: 01-08-2024 ambulatory IVAN TALAVERA [facility] Comment on above: Spirometry Start: 01-08-2024 End: 01-08-2024 Office outpatient visit 40 minutes Ivan Talavera PA-C Work Phone: [facility] Comment on above: Closed fracture of m ultiple ribs of right side with routine healing, subsequent encounter (Primary Dx); Hypoxia Start: 01-02-2024 End: 01-05-2024 Evaluation and management of inpatient Nilsa Earlruelviktor DO Work Phone: [facility] 6 Comment on above: Closed fracture of m ultiple ribs of right side, initial encounter (Primary Dx); Contusion of right lung, initial encounter; Acute pain; Interstitial lung disease (Multi) Start: 01-02-2024 Critical care ill/in jured patient init 30-74 min Nilsa Quintero DO Work Phone: [facility] Work Phone: Start: 12-17-2023 End: 12-18-2023 Refill Ivan Talavera PA-C Work Phone: Pulmonary Medicine Comment on above: Refill Request Start: 10-23-2023 End: 10-23-2023 ambulatory KAYODE MCKEON Facility:[facility] Start: 10-23-2023 End: 10-23-2023 Patient encounter procedure Kayode Mckeon MD Work Phone: Pulmonary Medicine Comment on above: Hypersensitivity pne umonitis (HCC) (Primary Dx) Start: 10-17-2023 End: 10-17-2023 ambulatory IVAN TALAVERA [facility] Comment on above: Spirometry Start: 10-17-2023 End: 10-17-2023 Patient encounter procedure [facility] Work Phone: [facility] Start: 10-04-2023 End: 10-04-2023 Office outpatient visit 25 minutes Bright Escobedo DO Work Phone: [facility] Comment on above: Mild persistent asth ma without complication (HHS-HCC) (Primary Dx); Current moderate episode of major depressive disorder, unspecified whether recurrent (Multi); Anxiety; Hyperlipidemia, unspecified hyperlipidemia type; Abnormal finding of blood chemistry, unspecified Start: 10-04-2023 End: 10-04-2023 ambulatory BRIGHT ESCOBEDO [facility] Start: 09-29-2023 End: 09-29-2023 Subsequent hospital visit by physician Gonzalez Ayers MD Work Phone: [facility] Comment on above: Colon cancer screeni ng (Primary Dx) Start: 09-29-2023 End: 09-29-2023 ambulatory GONZALEZ AYERS [facility] Start: 07-20-2023 End: 07-20-2023 Office outpatient visit 15 minutes Ivan Castañedaella PA-C Work Phone: [facility] Medicine Comment on above: Hypersensitivity pne umonia (HCC) (Primary Dx); Uncomplicated asthma, unspecified asthma severity, unspecified whether persistent Start: 07-20-2023 End: 07-20-2023 ambulatory Pulm Indp Work Phone: [facility]monary Lab Comment on above: Spirometry Start: 07-20-2023 End: 07-20-2023 Patient encounter procedure [facility] Work Phone: [facility] Start: 06-16-2023 End: 06-16-2023 Office outpatient visit 15 minutes Ivan Castañedaella PA-C Work Phone: [facility] Medicine Comment on above: Hypersensitivity pne umonia (HCC) (Primary Dx) Start: 05-18-2023 ambulatory Ivan Nelson lla PA-C Work Phone: [facility] Medicine Comment on above: New medication Start: 05-18-2023 Telephone encounter Ivan Rodríguez picella PA-C Work Phone: [facility] Start: 05-18-2023 End: 05-18-2023 Office outpatient visit 15 minutes Ivan Apicella PA-C Work Phone: [facility] Comment on above: Uncomplicated asthma , unspecified asthma severity, unspecified whether persistent (Primary Dx) Start: 05-05-2023 Telephone encounter Ivan Rodríguez picella PA-C Work Phone: [facility] Comment on above: Patient Update Start: 04-21-2023 Telephone encounter Ivan Rodríguez picella PA-C Work Phone: [facility] Start: 04-21-2023 End: 04-21-2023 Office outpatient visit 15 minutes Ivan Apicella PA-C Work Phone: [facility] Comment on above: Hypersensitivity pne umonitis (HCC) (Primary Dx) Start: 04-21-2023 End: 04-21-2023 ambulatory Pulm Indp Work Phone: [facility] Lab Comment on above: Spirometry Start: 04-21-2023 End: 04-21-2023 Patient encounter procedure [facility] Work Phone: [facility] Start: 04-12-2023 End: 04-12-2023 Emergency department patient visit Naty Hall DO Work Phone: [facility] Comment on above: Sprain of anterior t alofibular ligament of left ankle, initial encounter (Primary Dx); Fall, initial encounter Start: 03-24-2023 End: 03-24-2023 Office outpatient visit 25 minutes Ivan Talavera PA-C Work Phone: Pulmonary Medicine Comment on above: Hypersensitivity pne umonitis (HCC) (Primary Dx); Acute hypoxemic respiratory failure (HCC) Start: 03-17-2023 Telephone encounter Kayode hernández MD Work Phone: Pulmonary Medicine Comment on above: Patient Update Start: 02-27-2023 End: 02-27-2023 Office outpatient new 30 minutes Debra Mejia 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 Work Phone: [facility] 4 Comment on above: Strain of right hams tring, initial encounter; Posterior right knee pain Start: 01-31-2023 End: 01-31-2023 Subsequent hospital visit by physician [facility] Work Phone: Radiology Comment on above: Uncomplicated asthma , unspecified asthma severity, unspecified whether persistent [J45.909] Start: 01-19-2023 Telephone encounter Kayode hernández MD Work Phone: Pulmonary Medicine Comment on above: Appointment Start: 11-25-2022 End: 11-25-2022 ambulatory Pulm Ind[facility] Work Phone: Pulmonary Lab Comment on above: Spirometry Start: 11-25-2022 End: 11-25-2022 Patient encounter procedure Pulm [facility]ct Lab [facility] Work Phone: [facility] Comment on above: Uncomplicated asthma , unspecified asthma severity, unspecified whether persistent (Primary Dx); Hypersensitivity pneumonia (HCC); Interstitial pulmonary disease (HCC) Start: 10-11-2022 End: 10-11-2022 Patient encounter procedure Naty Hall DO Work Phone: [facility] Comment on above: Medicare annual well ness visit, subsequent (Primary Dx); Urinary incontinence, unspecified type; Anxiety; Hyperlipidemia, unspecified hyperlipidemia type; Breast cancer screening by mammogram; Encounter for screening for malignant neoplasm of colon; Thyroid disorder screening; Mixed hyperlipidemia; Hyperglycemia; Other fatigue; Screening for osteoporosis; Osteopenia of multiple sites; Chronic pain of left knee; Moderate persistent asthma, unspecified whether complicated; Breast asymmetry Start: 09-04-2022 Refill Kayode rodríguez MD Work Phone: Pulmonary Medicine Comment on above: Refill Request Start: 05-13-2022 Telephone encounter Kayode hernández MD Work Phone: Pulmonary Medicine Comment on above: Xray Results Start: 05-12-2022 End: 05-12-2022 Subsequent hospital visit by physician [facility] Work Phone: Radiology Comment on above: Dyspnea, unspecified type [R06.00] Start: 05-12-2022 End: 05-12-2022 ambulatory Pulm Ind[facility] Work Phone: Pulmonary Lab Comment on above: Spirometry Start: 05-12-2022 End: 05-12-2022 Patient encounter procedure Pulm [facility]ct Lab [facility] Work Phone: [facility] Start: 03-28-2022 Refill Kayode rodríguez MD Work Phone: Pulmonary Medicine Comment on above: Refill Request Start: 11-09-2021 Office consultation new/estab patient 60 min Naty Hall Work Phone: [facility] Work Phone: Start: 11-07-2021 Refill Karan Fuentes MD Work Phone: Cardiology Comment on above: Refill Request Start: 11-03-2021 Chart Update Naty meade Work Phone: [facility] Work Phone: Start: 11-01-2021 Office outpatient ne w 30 minutes Naty Hall Work Phone: [facility] 9235 Work Phone: Start: 10-22-2021 End: 10-22-2021 ambulatory Pulm Ind[facility] Work Phone: Pulmonary Lab Comment on above: Spirometry Start: 10-22-2021 End: 10-22-2021 Patient encounter procedure Pulm [facility]ct Lab [facility] Work Phone: [facility] Comment on above: Hypersensitivity pne umonitis (HCC) (Primary Dx); Uncomplicated asthma, unspecified asthma severity, unspecified whether persistent Start: 10-22-2021 End: 10-22-2021 Subsequent hospital visit by physician [facility] Work Phone: Radiology Comment on above: Interstitial pulmona ry disease (HCC) [J84.9] Start: 09-08-2021 Chart Update Naty meade Work Phone: [facility] 1321 Work Phone: Start: 08-17-2021 AUDIT Naty meade Work Phone: [facility] 1051 Work Phone: Start: 08-13-2021 Refill Karan Fuentes MD Work Phone: Cardiology Comment on above: Refill Request Start: 08-13-2021 End: 08-13-2021 ambulatory Pulm Indp Work Phone: Pulmonary Lab Comment on above: Spirometry Start: 08-13-2021 End: 08-13-2021 Patient encounter procedure Pulm [facility]ct Lab [facility] Work Phone: [facility] Start: 08-09-2021 Patient encounter procedure Naty Hall Work Phone: [facility] 1051 Work Phone: Start: 07-19-2021 Telephone encounter Kayode hernández MD Work Phone: Pulmonary Medicine Comment on above: rejection message Start: 07-19-2021 End: 07-19-2021 ambulatory Pulm Hts Work Phone: Pulmonary Lab Comment on above: Spirometry Start: 07-19-2021 End: 07-19-2021 Patient encounter procedure Pulm Lab [facility] Work Phone: [place] Comment on above: Chronic obstructive pulmonary disease, unspecified COPD type (HCC) (Primary Dx); Asthma with chronic obstructive pulmonary disease (COPD) (HCC); Interstitial pulmonary disease (HCC) Start: 07-08-2021 AUDIT Marcela Buchanan Work Phone: [facility] 0444 Work Phone: Start: 06-21-2021 End: 06-21-2021 Patient encounter procedure Karan Fuentes MD Work Phone: Cardiology Comment on above: Precordial chest igor n (Primary Dx); SOB (shortness of breath); Hypoxemia; Dyslipidemia Start: 06-02-2021 Orders Only Kayode rodríguez MD Work Phone: Res[facility] [place] Comment on above: Dyspnea, unspecified type (Primary Dx) Start: 06-01-2021 Orders Only Miguel delcid PA-C Work Phone: Pulmonary Medicine Comment on above: COPD with chronic br onchitis (HCC) (Primary Dx) Start: 05-26-2021 End: 05-26-2021 Orders Only Kayode Mckeon MD Work Phone: Pulmonary Medicine Comment on above: Chronic obstructive pulmonary disease, unspecified COPD type (HCC) (Primary Dx) Canceled (Pt cx: Alycia finnegan in Condition, Sick) Start: 09-30-2020 Rx Renewal Marcela Buchanan Work Phone: [facility] 0465 Work Phone: Start: 09-17-2020 Office outpatient vi sit 25 minutes Marcela Buchanan Work Phone: [facility] 5850 Work Phone: Start: 11-09-2016 End: 11-10-2016 Ambulatory ALTHEA SHEFFIELD Facility:[id number] Patient encounter procedure Naty Hall Work Phone: [facility] 1057 Work Phone: Procedures Date Procedure Procedure Detail Performing Clinician Start: 08-21-2024 Noninvasive ear/pulse oximetry multiple deter Kayode Mckeon MD Work Phone: Start: 08-19-2024 Spmtry w/vc expiratory earnestine w/wo mxml vol vntj Ivan Talavera PA-C Work Phone: Start: 08-17-2024 Basic metabolic panel calcium total Carin Villalpando MD Work Phone: Start: 08-16-2024 Basic metabolic panel calcium total Carin Villalpando MD Work Phone: Start: 08-15-2024 Radiologic exam chest single view Bright Crrefugio DO Work Phone: Start: 08-15-2024 Basic metabolic panel calcium total Nilsa Freire DO Work Phone: Start: 08-14-2024 Comprehensive metabolic panel Nilsa Freire DO Work Phone: Start: 08-14-2024 History of repair of musculotendinous cuff of shoulder S/P rotator cuff repair Jordan Maher MD Work Phone: Start: 08-14-2024 End: 08-14-2024 Arthroscopy shoulder rotator cuff repair Jordan Maher MD Work Phone: Start: 08-14-2024 End: 08-14-2024 Arthroscopy shoulder surg debridement extensive Jordan Maher MD Work Phone: Start: 08-14-2024 End: 08-14-2024 Arthroscopy shoulder w/coracoacrm ligmnt release Jordan Maher MD Work Phone: Start: 06-20-2024 Mri any jt upper extremity w/o contrast matrl 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 Detec 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 Work Phone: Start: 06-05-2024 End: 06-05-2024 Screening digital breast tomosynthesis bi Bright Escobedo DO Work Phone: Start: 05-15-2024 Spmtry w/vc expiratory earnestine w/wo mxml vol vntj Kayode Mckeon MD Work Phone: Start: 01-23-2024 Arthrocentesis aspir&/inj major jt/bursa w/o us 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 Detec 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 Work Phone: Start: 01-08-2024 Noninvasive ear/pulse oximetry multiple deter Ivan Talavera PA-C Work Phone: Start: 01-05-2024 Renal function panel Shelley hobson PA-C Work Phone: Start: 01-04-2024 AIRWAY CLEARANCE TECHNIQUES Shelley Yeung -Lucian PA-C Work Phone: Start: 01-04-2024 Renal function panel Shelley Hardy d PA-C Work Phone: Start: 01-03-2024 AIRWAY CLEARANCE TECHNIQUES Shelley Yeung -Lucian PA-C Work Phone: Start: 01-03-2024 Radex ribs bilateral 3 views Bethany Farnsworth l DO Work Phone: Start: 01-03-2024 AIRWAY CLEARANCE TECHNIQUES Shelley White PA-C Work Phone: Start: 01-03-2024 Radiologic exam chest single view Hawa Zendejas 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 Work Phone: Start: 01-03-2024 Comprehensive metabolic panel Hawa Zendejas 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 Work Phone: Start: 01-02-2024 Radex shoulder complete minimum 2 views Hawa Zendejas 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 Work Phone: Start: 01-02-2024 Prothrombin time Nilsa Quintero DO Work Phone: Start: 01-02-2024 Ct abdomen & pelvis w/contrast material Nilsa Quintero DO Work Phone: Start: 01-02-2024 Ct angiography chest w/contrast/noncontrast Nilsa Quintero DO Work Phone: Start: 01-02-2024 Ct cervical spine w/o contrast material Nilsa Quintero DO Work Phone: Start: 01-02-2024 Ct head/brain w/o contrast material Nilsa Quintero DO Work Phone: Start: 01-02-2024 Radiologic exam chest single view Nilsa Quintero DO Work Phone: Start: 01-02-2024 Comprehensive metabolic panel Nilsa Quintero DO Work Phone: Start: 01-02-2024 Troponin I.cardiac panel - Serum or Plasma by High sensitivity method Nilsa Quintero DO Work Phone: Start: 01-02-2024 Ecg routine ecg w/least 12 lds trcg only w/o i&r Shelley Pandey PA-C Work Phone: Start: 01-02-2024 PULSE OXIMETRY, CONTINUOUS Nilsa lispcombviktor DO Work Phone: Start: 10-17-2023 Co diffusing capacity Ivan Talavera PA-C Work Phone: Start: 10-04-2023 Lipid 1996 panel - Serum or Plasma Pulm Indp Work Phone: Start: 09-29-2023 Colonoscopy w/biopsy single/multiple Bright Escobedo DO Work Phone: Start: 09-29-2023 Colonoscopy Gonzalez Ayers MD Work Phone: Start: 07-20-2023 Co diffusing capacity Ivan Talavera PA-C Work Phone: Start: 04-21-2023 Brncdilat rspse spmtry pre&post-brncdilat admcarla Mckeon MD Work Phone: Start: 04-12-2023 Radex ankle complete minimum 3 views Emanuel Fonseca 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 Work Phone: Start: 01-31-2023 Ct thorax w/o contrast material Kayode Mckeon MD Work Phone: Start: 11-25-2022 Spmtry w/vc expiratory earnestine w/wo mxml vol vntj Kayode Mckeon MD Work Phone: Start: 11-14-2022 Mammography Debra Mejia 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-CN P Work Phone: Start: 10-11-2022 Lipid 1996 panel - Serum or Plasma Pulm Indp Work Phone: Start: 05-12-2022 Spmtry w/vc expiratory earnestine w/wo mxml vol vntj Kayode Mckeon MD Work Phone: Start: 05-12-2022 Radiologic exam chest 2 views Kayode Mckeon MD Work Phone: Start: 10-22-2021 Nitric oxide gas determination Kayode Mckeon MD Work Phone: Start: 10-22-2021 Spmtry w/vc expiratory earnestine w/wo mxml vol vntj Kayode Mckeon MD Work Phone: Start: 10-22-2021 Ct thorax w/o contrast material Kayode Mckeon MD Work Phone: Start: 09-07-2021 Mammography Naty Hall DO Work Phone: Start: 08-13-2021 Noninvasive ear/pulse oximetry multiple deter Kayode Mckeon MD Work Phone: Start: 07-19-2021 Brncdilat rspse spmtry pre&post-brncdilat admcarla Mckeon MD Work Phone: Start: 09-17-2020 Lipid 1996 panel - Serum or Plasma Naty Hall DO Work Phone: section Marcela Buchanan Work Phone: Gallbladder Surgery Marcela lisa Work Phone: History of repair of musculotendinous cuff of shoulder S/P right rotator cuff repair Bright Bergfreddy DO Work Phone: Plan of Treatment Date Care Activity Detail Author Start: 10-03-2028 Lipid panel [facility] Start: 10-12-2027 Lipid 1996 panel - Serum or Plasma Lipid Screening [facility] Start: 10-12-2027 Lipid panel [facility] Start: 08-18-2027 Diabetes Screening Diabetes Screening [facility] Start: 01-02-2027 Diabetes Screening Diabetes Screening [facility] Start: 11-02-2026 DTaP/Tdap/Td Vaccines (2 - Td or Tdap) DTaP/Tdap/Td Vaccines (2 - Td or Tdap) [facility] Start: 11-02-2026 Urine microalbumin profile DTaP,Tdap,Td Vaccine (2 - Td or Tdap) [facility] Start: 10-03-2026 Diabetes Screening Diabetes Screening [facility] Start: 03-15-2026 Diabetes Screening Diabetes Screening [facility] Start: 10-11-2025 Diabetes mellitus screening Diabetes Screening [facility] Start: 10-11-2025 Diabetes Screening Diabetes Screening [facility] Start: 09-17-2025 Lipid panel Lipid Panel [facility] Start: 08-17-2025 Diabetes mellitus screening Diabetes Screening [facility] Start: 06-05-2025 Screening for malignant neoplasm of breast [facility] Start: 06-01-2025 Medicare Annual Wellness Visit Medicare Annual Wellness Visit (AWV) [facility] Start: 12-20-2024 End: 12-20-2024 Patient encounter procedure Pulmonary Medicine Comment on above: Hypersensitivity pneumonitis (HCC) [J67. 9] 4m fu w/ pfts Start: 12-12-2024 End: 12-12-2024 Patient encounter procedure 12/12/2024 9:30 AM EDT Office Visit [facility] Center [address] [place] [address] [address] [place] [address] Bright Escobedo DO [address] [facility], [address] [place] [address] Internal Medicine Center Start: 10-14-2024 Influenza vaccination [facility] Start: 10-03-2024 Diabetes mellitus screening Diabetes Screening [facility] Start: 10-01-2024 End: 10-01-2024 Patient encounter procedure 10/01/2024 10:00 AM EDT Office Visit [place] [address] [address] [facility] [address] [place] [phone] Jordan Maher MD [address] [facility] 4, [address] [place] [address] [place] [address] Start: 09-28-2024 Screening for malignant neoplasm of colon [facility] Start: 09-27-2024 End: 09-27-2024 ambulatory 09/27/2024 9:15 AM EDT Treatment [place] [address] [address] [facility] [address] [place] [phone] Chelsea Herrera, PT [address] [place] [address] [place] [address] Start: 09-24-2024 End: 09-24-2024 ambulatory 09/24/2024 9:15 AM EDT Treatment [place] [address] [address] [facility] [address] [place] [phone] Chelsea Herrera, PT [address] [place] [address] [place] [address] Start: 09-20-2024 End: 09-20-2024 ambulatory 09/20/2024 1:45 PM EDT Treatment [facility] [address] [facility] [address] [place] [phone] Stephie Pulido, TOOL MECHANIC [address] [place] [address] [place] [address] Start: 09-17-2024 End: 09-17-2024 ambulatory 09/17/2024 12:15 PM EDT Treatment [place] [address] [facility] [address] [place] [phone] Stephie Pulido, TOOL MECHANIC [address] [place] [address] [place] [address] Start: 09-13-2024 End: 09-13-2024 ambulatory 09/13/2024 10:45 AM EDT Treatment [place] [address] [facility] [address] [place] [address] Stephie Pulido, TOOL MECHANIC [address] [place] [address] [place] [address] Start: 09-10-2024 End: 09-10-2024 ambulatory 09/10/2024 10:45 AM EDT Evaluation [place] [address] [facility] [address] [place] [address] Chelsea Herrera, PT [address] [place] [address] [place] [address] Start: 08-30-2024 End: 08-30-2024 Patient encounter procedure 08/30/2024 1:30 PM EDT Office Visit Internal Medicine Center [address] [facility] [address] [place] [phone] Bright Escobedo, DO [address] [facility], [address] [place] [address] Internal Medicine Center Start: 08-29-2024 End: 08-29-2024 Patient encounter procedure 08/29/2024 2:15 PM EDT Office Visit Internal Medicine Center [address] [facility] [address] [place] [address] Bright Escobedo, DO [address] [facility], [address] [place] [address] Internal Medicine Center Start: 08-21-2024 End: 08-21-2024 ambulatory 08/21/2024 11:00 AM EDT Procedure Pulmonary Medicine [address] [place] [address] Hypersensitivity pneumonitis (HCC) [J67.9] Pulmonary Medicine Comment on above: Hypersensitivity pneumonitis (HCC) [J67. 9] Start: 08-20-2024 End: 08-20-2024 Patient encounter procedure 08/20/2024 9:45 AM EDT Office Visit [address] [phone] Jordan Maher MD [address] [facility] 4, [address] [address] [place] [address] Start: 08-19-2024 End: 08-19-2024 Patient encounter procedure 08/19/2024 9:00 AM EDT Office Visit Pulmonary Medicine [address] [place] [phone] Kayode Mckeon MD [address] [place] [address] 3M FU W/ PFTS Pulmonary Medicine Comment on above: 3M FU W/ PFTS Start: 08-19-2024 End: 07-07-2025 ambulatory Pulmonary Medicine Comment on above: Hypersensitivity pneumonia (HCC) [J67.9] Start: 08-14-2024 End: 08-14-2024 Admission to same day surgery center 08/14/2024 11:00 AM EDT - 08/14/2024 1:10 PM EDT Surgery [facility] [place] [address] [place] [address] Jordan Maher MD [address] [facility], [address] [place] [address] RIGHT SHOULDER ARTHROSCOPIC ROTATOR CUFF REPAIR [70295 (CPT )] [facility] [place] Comment on above: RIGHT SHOULDER ARTHROSCOPIC ROTATOR CUFF REPAIR [50759 (CPT )] Start: 08-14-2024 End: 08-14-2024 Arthroscopy shoulder rotator cuff repair ARTHROSCOPY, SHOULDER, WITH ROTATOR CUFF REPAIR Rotator cuff strain, right, initial encounter 08/14/2024 11:00 AM EDT [facility] Start: 08-14-2024 End: 08-14-2024 Arthroscopy shoulder surg debridement extensive ARTHROSCOPY, SHOULDER Rotator cuff strain, right, initial encounter 08/14/2024 11:00 AM EDT [facility] Start: 08-14-2024 End: 08-14-2024 Arthroscopy shoulder w/coracoacrm ligmnt release DECOMPRESSION, SUBACROMIAL SPACE Rotator cuff strain, right, initial encounter 08/14/2024 11:00 AM EDT [facility] Start: 08-14-2024 Subsequent hospital visit by physician 08/14/2024 9:30 AM EDT Hospital Encounter [facility] [place] [address] [place] [address] Jordan Maher MD [address] [facility] 4, [address] [place] [address] [facility] [place] Start: 08-01-2024 End: 08-01-2025 Colonoscopy study Colonoscopy Screening; Average Risk Patient Endoscopy Routine Colon cancer screening Expected: 08/01/2024, Expires: 08/01/2025 [facility] Service Area Work Phone: Comment on above: Expected: 08/01/2024, Expires: Start: 08-01-2024 End: 08-01-2025 Lipid 1996 panel - Serum or Plasma Lipid Panel Lab Routine Hyperlipidemia, unspecified hyperlipidemia type Expected: 08/01/2024 (Approximate), Expires: 08/01/2025 [facility] Work Phone: Comment on above: Expected: 08/01/2024 (Approximate), Expi res: 08/01/2025 Start: 08-01-2024 End: 08-01-2024 Patient encounter procedure 08/01/2024 1:15 PM EDT Procedure Visit [place] [address] [address] [facility] [address] [phone] [place] [address] Start: 08-01-2024 End: 08-01-2024 Admission to establishment 08/01/2024 12:30 PM EDT Pre-Admission Testing [facility] [address] [place] [address] Preop testing (Primary Dx) [facility] Comment on above: Preop testing (Primary Dx) Start: 07-02-2024 End: 11-02-2024 Request for Pre-Admission Testing Visit Request for Pre-Admission Testing Visit Procedures Routine Rotator cuff strain, right, initial encounter Expected: 07/02/2024 (Approximate), Expires: 11/02/2024 [facility] Service Area Work Phone: Comment on above: Expected: 07/02/2024 (Approximate), Expi res: 11/02/2024 Start: 07-02-2024 End: 07-02-2024 Patient encounter procedure 07/02/2024 10:15 AM EDT Office Visit [place] [address] [address] [facility] [address] [phone] Jordan Maher MD [address] [facility] 4, [address] [place] [address] [place] [address] Start: 06-29-2024 DIABETES SCREEN DIABETES SCREEN [facility] Start: 06-14-2024 End: 06-14-2024 Patient encounter procedure 06/14/2024 2:00 PM EDT Appointment [facility] [address] [place] [address] [facility] Start: 06-13-2024 Anes transurethral w/urethrocystoscopy nos ANESTH BLADDER SURGERY [facility] Start: 06-13-2024 Ndsc njx implt matrl urt&/bldr nck ENDOSCOPIC INJECTION/IMPLANT [facility] Start: 06-13-2024 Patient discharge [facility] Start: 06-10-2024 End: 06-10-2025 MR Shoulder - right WO contrast MR shoulder right wo IV contrast Imaging Routine Acute pain of right shoulder Expected: 06/10/2024, Expires: 06/10/2025 [facility] Service Area Work Phone: Comment on above: Expected: 06/10/2024, Expires: Start: 06-10-2024 End: 06-10-2024 Patient encounter procedure 06/10/2024 11:40 AM EDT Office Visit [place] [address] [facility] [address] [phone] Debra Mejia, 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 [address] [facility] MAC 4, [address] [address] [place] [address] Start: 05-31-2024 End: 05-31-2025 Basic metabolic 2000 panel - Serum or Plasma Basic metabolic panel Lab Routine Hyperlipidemia, unspecified hyperlipidemia type Expected: 05/31/2024 (Approximate), Expires: 05/31/2025 [facility] Work Phone: Comment on above: Expected: 05/31/2024 (Approximate), Expi res: 05/31/2025 Start: 05-31-2024 End: 05-31-2025 CBC panel - Blood by Automated count CBC Lab Routine Hyperlipidemia, unspecified hyperlipidemia type Expected: 05/31/2024 (Approximate), Expires: 05/31/2025 [facility] Service Area Work Phone: Comment on above: Expected: 05/31/2024 (Approximate), Expi res: 05/31/2025 Start: 05-31-2024 End: 07-31-2025 DBT Breast - bilateral BI mammo bilateral screening tomosynthesis Imaging Routine Breast cancer screening by mammogram Expected: 05/31/2024, Expires: 07/31/2025 [facility] Work Phone: Comment on above: Expected: 05/31/2024, Expires: Start: 05-28-2024 DIABETES SCREEN DIABETES SCREEN [facility] Start: 05-26-2024 DIABETES SCREEN DIABETES SCREEN [facility] Start: 04-24-2024 End: 04-24-2024 Patient encounter procedure 04/24/2024 9:20 AM EDT Office Visit Pulmonary Medicine [address] [place] [phone] Kayode Mckeon MD [address] [place] [address] 6 month follow up Pulmonary Medicine Comment on above: 6 month follow up Start: 04-24-2024 End: 04-24-2024 ambulatory Pulmonary Medicine Comment on above: Hypersensitivity pneumonitis (HCC) [J67. 9] Start: 02-14-2024 Advance Directive Discussion Advance Directive Discussion [facility] Start: 02-12-2024 End: 02-12-2024 Patient encounter procedure 02/12/2024 10:20 AM EST Office Visit Pulmonary Medicine [address] [place] [phone] Ivan Talavera PA-C [address] [place] [address] Repeat Oximetry and visit with Ivan around 02/05/2024 Pulmonary Medicine Comment on above: Repeat Oximetry and visit with Ivan around 02/05/2024 Start: 02-12-2024 End: 02-12-2024 ambulatory 02/12/2024 9:45 AM EST Procedure Pulmonary Medicine [address] [place] [address] OXIMETRY WITH AMBULATION Pulmonary Medicine Comment on above: OXIMETRY WITH AMBULATION Start: 01-23-2024 End: 01-23-2024 ambulatory 01/23/2024 9:45 AM EST Evaluation [facility] 1 [address] [facility] [address] [place] [address] Marie Mei, PT [address] [facility] 1[address] [place] [address] [place] [id number] Start: 01-23-2024 End: 01-23-2024 Patient encounter procedure 01/23/2024 8:20 AM EST Office Visit [facility] 4 [address] [facility] [address] [place] [address] Debra Mejia, 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 [address] [facility] 4[address] [place] [address] [facility] 4 Start: 01-03-2024 End: 01-03-2024 Patient encounter procedure 01/03/2024 10:15 AM EST Office Visit Internal Medicine Center [address] [facility] [address] [place] [id number] Bright Escobedo, [address] [facility], [address] [place] [address] Internal Medicine Center Start: 11-15-2023 Screening for malignant neoplasm of [facility] Start: 10-23-2023 End: 10-23-2023 Patient encounter procedure 10/23/2023 8:00 AM EDT Office Visit Pulmonary Medicine [address] [place] [address] Kayode Mckeon MD [address] [facility], [place] [id number] 4 mo f/up Pulmonary Medicine Comment on above: 4 mo f/up Start: 10-17-2023 End: 10-17-2023 ambulatory Pulmonary Lab Comment on above: Hypersensitivity pneumonia (HCC) [J67.9] Start: 10-15-2023 COVID-19 Vaccine ( season) COVID-19 Vaccine () [facility] Start: 10-15-2023 Covid-19 Vaccine () Covid-19 Vaccine () [facility] Start: 10-15-2023 Covid-19 Vaccine () Covid-19 Vaccine () [facility] Start: 10-15-2023 Influenza vaccination Influenza Vaccine (#1) [facility] Start: 10-13-2023 Medicare Annual Wellness Visit Medicare Annual Wellness Visit (AWV) [facility] Start: 10-12-2023 Diabetes mellitus screening Diabetes Screening [facility] Start: 10-04-2023 End: 10-03-2024 Hemoglobin A1c/Hemoglobin.total in Blood Hemoglobin A1C Lab Routine Hyperlipidemia, unspecified hyperlipidemia type Abnormal finding of blood chemistry, unspecified Expected: 10/04/2023 (Approximate), Expires: 10/03/2024 [facility] Service Area Work Phone: Comment on above: Expected: 10/04/2023 (Approximate), Expi res: 10/03/2024 Start: 10-04-2023 End: 10-03-2024 Lipid 1996 panel - Serum or Plasma Lipid Panel Lab Routine Hyperlipidemia, unspecified hyperlipidemia type Expected: 10/04/2023 (Approximate), Expires: 10/03/2024 [facility] Work Phone: Comment on above: Expected: 10/04/2023 (Approximate), Expi res: 10/03/2024 Start: 10-04-2023 End: 10-03-2024 TSH with reflex to Free T4 if abnormal TSH with reflex to Free T4 if abnormal Lab Routine Hyperlipidemia, unspecified hyperlipidemia type Expected: 10/04/2023 (Approximate), Expires: 10/03/2024 [facility] Work Phone: Comment on above: Expected: 10/04/2023 (Approximate), Expi res: 10/03/2024 Start: 10-04-2023 End: 10-04-2023 ambulatory 10/04/2023 1:30 PM EDT Lab [facility] [address] [place] [phone] Hyperlipidemia, unspecified hyperlipidemia type; Abnormal finding of blood chemistry, unspecified [facility] Comment on above: Hyperlipidemia, unspecified hyperlipidem ia type; Abnormal finding of blood chemistry, unspecified Start: 10-04-2023 End: 10-04-2023 Patient encounter procedure 10/04/2023 1:00 PM EDT Office Visit Internal Medicine Center [address] [facility] [address] [place] [phone] Bright Escobedo DO [address] [facility] [address] [place] [address] Internal Medicine Center Start: 07-20-2023 End: 07-20-2023 Patient encounter procedure 07/20/2023 9:00 AM EDT Office Visit Pulmonary Medicine [address] [place] [phone] Ivan Talavera PA-C [address] [place] [address] 1 mo f/up w/ PFTs Pulmonary Medicine Comment on above: 1 mo f/up w/ PFTs Start: 07-20-2023 End: 07-20-2023 ambulatory Pulmonary Lab Comment on above: Hypersensitivity pneumonia (HCC) [J67.9] Start: 04-21-2023 Covid-19 Vaccine () Covid-19 Vaccine () [facility] Start: 02-15-2023 COVID-19 Vaccine (4 - Pfizer series) COVID-19 Vaccine (4 - Pfizer series) [facility] Start: 02-13-2023 Advance Directive Discussion Advance Directive Discussion [facility] Start: 02-13-2023 Behavioral Health Screening Behavioral Health Screening [facility] Start: 02-13-2023 Depression Assessment Depression Assessment [facility] Start: 01-18-2023 COVID-19 Vaccine (3 - Pfizer risk series) COVID-19 Vaccine (3 - Pfizer risk series) [facility] Start: 10-14-2022 Covid-19 Vaccine () Covid-19 Vaccine () [facility] Start: 10-14-2022 Influenza vaccination [facility] Start: 10-11-2022 End: 04-12-2024 Colonoscopy Colonoscopy Screening Endoscopy Routine Encounter for screening for malignant neoplasm of colon Expected: 10/11/2022, Expires: 04/12/2024 [facility] Service Area Work Phone: Comment on above: Expected: 10/11/2022, Expires: 5 Start: 10-11-2022 End: 12-12-2023 DBT Breast - bilateral BI mammo bilateral screening tomosynthesis Imaging Routine Breast cancer screening by mammogram Expected: 10/11/2022, Expires: 12/12/2023 [facility] Work Phone: Comment on above: Expected: 10/11/2022, Expires: 4 Start: 10-11-2022 End: 10-12-2023 DXA Skeletal system Views for bone density XR DEXA bone density Imaging Routine Screening for osteoporosis Osteopenia of multiple sites Expected: 10/11/2022, Expires: 10/12/2023 [facility] Work Phone: Comment on above: Expected: 10/11/2022, Expires: 4 Start: 10-11-2022 End: 12-12-2023 US Breast - right limited BI US breast limited right Imaging Routine Breast asymmetry Expected: 10/11/2022, Expires: 12/12/2023 [facility] Work Phone: Comment on above: Expected: 10/11/2022, Expires: 4 Start: 09-07-2022 Screening for malignant neoplasm of breast Mammogram [facility] Start: 08-09-2022 Pneumococcal vaccination Pneumococcal Vaccine (2 of 2 - PCV) [facility] Start: 08-09-2022 Pneumococcal Vaccine: 50+ (2 of 2 - PCV) Pneumococcal Vaccine: 50+ (2 of 2 - PCV) [facility] Start: 08-09-2022 Pneumococcal Vaccine: 65+ (2 - PCV) Pneumococcal Vaccine: 65+ (2 - PCV) [facility] Start: 08-09-2022 Pneumococcal Vaccine: 65+ (2 of 2 - PCV) Pneumococcal Vaccine: 65+ (2 of 2 - PCV) [facility] Start: 08-09-2022 Pneumococcal Vaccine: 65+ Years (2 - PCV) Pneumococcal Vaccine: 65+ Years (2 - PCV) [facility] Start: 08-09-2022 Pneumococcal Vaccine: 65+ Years (2 of 2 - PCV) Pneumococcal Vaccine: 65+ Years (2 of 2 - PCV) [facility] Start: 02-13-2022 ADVANCE DIRECTIVE DISCUSSION ADVANCE DIRECTIVE DISCUSSION [facility] Start: 02-13-2022 DEPRESSION ASSESSMENT DEPRESSION ASSESSMENT [facility] Start: 01-31-2022 FUV, Provider: Naty Hall, Status: Pen, Time: 11:00 AM FUV, Provider: Naty Hall, Status: Pen, Time: 11:00 AM [facility] [address] Work Phone: Start: 01-19-2022 COVID-19 Vaccine (4 - Pfizer series) COVID-19 Vaccine (4 - Pfizer series) [facility] Start: 11-29-2021 FUV, Provider: Irasema Gonzales, Status: Pen, Time: 11:30 AM FUV, Provider: Irasema Gonzales, Status: Pen, Time: 11:30 AM [facility] [address] Work Phone: Start: 11-09-2021 NPV, Provider: Antonella Jamison, Status: Pen, Time: 9:00 AM NPV, Provider: Antonella Jamison, Status: Pen, Time: 9:00 AM [facility] [address] Work Phone: Start: 11-01-2021 NPV, Provider: Irasema Gonzales, Status: Pen, Time: 11:00 AM NPV, Provider: Irasema Gonzales, Status: Pen, Time: 11:00 AM [place] [id number] Work Phone: Start: 10-14-2021 Influenza vaccination INFLUENZA (#1) [facility] Start: 07-19-2021 End: 08-18-2022 NITRIC OXIDE, EXHALED NITRIC OXIDE, EXHALED PFT Routine Asthma with chronic obstructive pulmonary disease (COPD) ([facility]) Expected: 07/19/2021, Expires: 08/18/2022 [facility] Work Phone: Comment on above: Expected: 07/19/2021, Expires: 3 Start: 07-19-2021 End: 08-18-2022 SPIROMETRY BASELINE ONLY SPIROMETRY BASELINE ONLY PFT Routine Asthma with chronic obstructive pulmonary disease (COPD) ([facility]) Expected: 07/19/2021, Expires: 08/18/2022 [facility] Work Phone: Comment on above: Expected: 07/19/2021, Expires: 3 Start: 06-21-2021 End: 08-21-2021 Basic metabolic 2000 panel - Serum or Plasma BASIC METABOLIC PNL Lab Routine SOB (shortness of breath) Expected: 06/21/2021, Expires: 08/21/2021 [facility] Work Phone: Comment on above: Expected: 06/21/2021, Expires: 2 Start: 05-21-2021 COVID-19 VACCINE (4 - Booster for Pfizer series) COVID-19 VACCINE (4 - Booster for Pfizer series) [facility] Start: 2021 ADVANCE DIRECTIVE DISCUSSION ADVANCE DIRECTIVE DISCUSSION [facility] Start: 2021 BONE DENSITY BONE DENSITY [facility] Start: 2021 Bone Density Screening Bone Density Screening [facility] Start: 2021 PNEUMOCOCCAL: 65+ (1 - PCV) PNEUMOCOCCAL: 65+ (1 - PCV) [facility] Start: 2021 PNEUMOVAX AGE 65 AND OVER WITH 5YR LOOKBACK (#1) PNEUMOVAX AGE 65 AND OVER WITH 5YR LOOKBACK (#1) [facility] Start: 2021 Screening for osteoporosis Bone Density Screening [facility] Start: 04-13-2021 Medicare Annual Wellness Visit Medicare Annual Wellness Visit [facility] Start: 03-17-2021 COVID-19 VACCINE (4 - Booster for Pfizer series) COVID-19 VACCINE (4 - Booster for Pfizer series) [facility] Start: 03-17-2021 COVID-19 VACCINE (4 - Pfizer series) COVID-19 VACCINE (4 - Pfizer series) [facility] Start: 2016 Hepatitis B Vaccines (1 of 3 - Risk 3-dose series) Hepatitis B Vaccines (1 of 3 - Risk 3-dose series) [facility] Start: 2016 RSV High Risk: (Elderly (60+) or Population) (1 - Risk 60-74 years 1-dose series) RSV High Risk: (Elderly (60+) or Population) (1 - Risk 60-74 years 1-dose series) [facility] Start: 2016 RSV patients and/or patients aged 60+ years (1 - 1-dose 60+ series) RSV patients and/or patients aged 60+ years (1 - 1-dose 60+ series) [facility] Start: 2016 RSV Vaccine (1 - 1-dose 60+ series) RSV Vaccine (1 - 1-dose 60+ series) [facility] Start: 2016 RSV Vaccine (1 - Risk 60-74 years 1-dose series) RSV Vaccine (1 - Risk 60-74 years 1-dose series) [facility] Start: 2006 SHINGRIX VACCINE (1 of 2) SHINGRIX VACCINE (1 of 2) [facility] Start: 2006 Zoster Vaccines (1 of 2) Zoster Vaccines (1 of 2) [facility] Start: 2001 COLOGUARD (FIT-DNA) COLOGUARD (FIT-DNA) [facility] Start: 2001 Colonoscopy COLONOSCOPY [facility] Start: 2001 COLORECTAL CANCER SCREENING COLORECTAL CANCER SCREENING [facility] Start: [address] COLONOGRAPHY [facility] Start: 2001 FECAL OCCULT BLOOD FECAL OCCULT BLOOD [facility] Start: 2001 LIPID SCREEN LIPID SCREEN [facility] Start: 2001 Screening for malignant neoplasm of colon [facility] Start: 2001 SIGMOIDOSCOPY SIGMOIDOSCOPY [facility] Start: 1996 Mammography [facility] Start: 1996 Screening for malignant neoplasm of breast Mammogram Screening [facility] Start: 04-15-1975 Hepatitis A Vaccines (1 of 2 - Risk 2-dose series) Hepatitis A Vaccines (1 of 2 - Risk 2-dose series) [facility] Start: 04-15-1975 Urine microalbumin profile [facility] Start: 1974 ANNUAL PCP TEAM CHRONIC DISEASE VISIT ANNUAL PCP TEAM CHRONIC DISEASE VISIT [facility] Start: 1974 Anxiety Screening Anxiety Screening [facility] Start: 1974 Depression Screening Depression Screening [facility] Start: 1974 Diabetes mellitus screening Diabetes Screening [facility] Start: 1974 HEPATITIS C SCREENING HEPATITIS C SCREENING [facility] Start: 1974 Hepatitis C screening Hepatitis C Screening [facility] Start: 1974 HIV SCREENING HIV SCREENING [facility] Start: 1968 Adult depression screening assessment DEPRESSION SCREENING [facility] Start: 1962 Pneumococcal Vaccine: 65+ (1 - PCV) Pneumococcal Vaccine: 65+ (1 - PCV) [facility] Start: 1962 PNEUMOCOCCAL: 65+ (1 - PCV) PNEUMOCOCCAL: 65+ (1 - PCV) [facility] Start: 1956 Screening for malignant neoplasm of colon [facility] Start: 1956 Screening for osteoporosis Bone Density Scan [facility] Airway Clearance Techniques Device/modality: EzPap Airway Clearance Techniques Device/modality: EzPap Respiratory Care Routine Respiratory use only - 1899 until discontinued starting 01/03/2024, 3 completed [facility] Work Phone: Comment on above: Respiratory use only - 1899 until discontinued starting 01/03/2024, 3 completed Arthroscopy shoulder rotator cuff repair ARTHROSCOPY, SHOULDER, WITH ROTATOR CUFF REPAIR Rotator cuff strain, right, initial encounter [facility] Arthroscopy shoulder surg debridement extensive ARTHROSCOPY, SHOULDER Rotator cuff strain, right, initial encounter [facility] Arthroscopy shoulder w/coracoacrm ligmnt release DECOMPRESSION, SUBACROMIAL SPACE Rotator cuff strain, right, initial encounter [facility] End: 09-29-2023 Blood type and Indirect antibody screen panel - Blood Type And Screen Lab STAT STAT (Lab) for 1 Occurrences starting 09/29/2023 until 09/29/2023 [facility] Service Area Work Phone: Comment on above: STAT (Lab) for 1 Occurrences starting until 09/29/2023 CBC panel - Blood by Automated count CBC Lab Routine Other fatigue 10/11/2022 9:05 AM T [facility] Work Phone: End: 01-08-2024 CBC panel - Blood by Automated count CBC Lab Routine Morning draw (Lab) for 5 Occurrences starting 01/04/2024 until 01/08/2024, 2 completed [facility] Work Phone: Comment on above: Morning draw (Lab) for 5 Occurrences sta rting 01/04/2024 until 01/08/2024, 2 completed Comprehensive metabo lic 2000 panel - Serum or Plasma Comprehensive Metabolic Panel Lab Routine Hyperglycemia 10/11/2022 9:05 AM [facility] Work Phone: End: 08-14-2024 Continuous Pulse oximetry, In Phase 1 Continuous Pulse oximetry, In Phase 1 Respiratory Care Routine Continuous until discontinued starting 08/14/2024 [facility] Work Phone: Comment on above: Continuous until discontinued starting 0 08/14/2024 End: 08-18-2022 Ct thorax w/o contrast material CT CHEST WO IVCON Radiology Routine Interstitial pulmonary disease (HCC) 1 Occurrences starting 07/19/2021 until 08/18/2022 [facility] Work Phone: Comment on above: 1 Occurrences starting 07/19/2021 until 08/18/2022 End: 12-25-2023 Ct thorax w/o contrast material CT CHEST WO IVCON Radiology Routine Uncomplicated asthma, unspecified asthma severity, unspecified whether persistent Hypersensitivity pneumonia (HCC) Interstitial pulmonary disease (HCC) 1 Occurrences starting 11/25/2022 until 12/25/2023 [facility] Work Phone: Comment on above: 1 Occurrences starting 11/25/2022 until 12/25/2023 End: 01-02-[address] [facility] Work Phone: Comment on above: Every 1 hour for 2 Occurrences starting 01/02/2024 until 01/02/2024, 1 completed End: 06-21-2022 ECG COMPLETE ECG COMPLETE ECG Routine SOB (shortness of breath) 1 Occurrences starting 06/21/2021 until 06/21/2022 [facility] Work Phone: Comment on above: 1 Occurrences starting 06/21/2021 until 06/21/2022 Electrocardiogram, 12-lead PRN ACS symptoms Electrocardiogram, 12-lead PRN ACS symptoms ECG Routine As needed until discontinued starting 08/14/2024 [facility] Work Phone: Comment on above: As needed until discontinued starting Hemoglobin A1c/Hemoglobin.total in Blood Hemoglobin A1c Lab Routine Hyperglycemia 10/11/2022 9:05 AM [facility] Work Phone: End: 01-02-2024 Incentive Spirometry Instruct Incentive Spirometry Instruct Respiratory Care Routine Once for 1 Occurrences starting 01/02/2024 until 01/02/2024 [facility] Work Phone: Comment on above: Once for 1 Occurrences starting 01/02/20 24 until 01/02/2024 Lipid 1996 panel - S alejo or Plasma Lipid Panel Lab Routine Mixed hyperlipidemia 10/11/2022 9:05 AM [facility] Work Phone: End: 11-21-2022 LUNG DIFFUSION CAPACITY (DLCO) LUNG DIFFUSION CAPACITY (DLCO) PFT Routine Hypersensitivity pneumonitis (HCC) 1 Occurrences starting 10/22/2021 until 11/21/2022 [facility] Work Phone: Comment on above: 1 Occurrences starting 10/22/2021 until 11/21/2022 End: 12-25-2023 LUNG DIFFUSION CAPACITY (DLCO) LUNG DIFFUSION CAPACITY (DLCO) PFT Routine Hypersensitivity pneumonia (HCC) 1 Occurrences starting 11/25/2022 until 12/25/2023 [facility] Work Phone: Comment on above: 1 Occurrences starting 11/25/2022 until 12/25/2023 End: 07-15-2024 LUNG DIFFUSION CAPACITY (DLCO) LUNG DIFFUSION CAPACITY (DLCO) PFT Routine Hypersensitivity pneumonia (HCC) 1 Occurrences starting 06/16/2023 until 07/15/2024 [facility] Comment on above: 1 Occurrences starting 06/16/2023 until 07/15/2024 End: 08-18-2024 LUNG DIFFUSION CAPACITY (DLCO) LUNG DIFFUSION CAPACITY (DLCO) PFT Routine Hypersensitivity pneumonia (HCC) 1 Occurrences starting 07/20/2023 until 08/18/2024 [facility] Comment on above: 1 Occurrences starting 07/20/2023 until 08/18/2024 LUNG DIFFUSION CAPAC ITY (DLCO) LUNG DIFFUSION CAPACITY (DLCO) PFT Routine Hypersensitivity pneumonia (HCC) 10/17/2023 9:16 AM EDT [facility] Work Phone: End: 11-21-2024 LUNG DIFFUSION CAPACITY (DLCO) LUNG DIFFUSION CAPACITY (DLCO) PFT Routine Hypersensitivity pneumonitis (HCC) 1 Occurrences starting 10/23/2023 until 11/21/2024 [facility] Work Phone: Comment on above: 1 Occurrences starting 10/23/2023 until 11/21/2024 End: 06-14-2025 LUNG DIFFUSION CAPACITY (DLCO) LUNG DIFFUSION CAPACITY (DLCO) PFT Routine Hypersensitivity pneumonia (HCC) 1 Occurrences starting 05/15/2024 until 06/14/2025 [facility] Comment on above: 1 Occurrences starting 05/15/2024 until 06/14/2025 End: 09-18-2025 LUNG DIFFUSION CAPACITY (DLCO) LUNG DIFFUSION CAPACITY (DLCO) PFT Routine Hypersensitivity pneumonitis (HCC) 1 Occurrences starting 08/19/2024 until 09/18/2025 [facility] Comment on above: 1 Occurrences starting 08/19/2024 until 09/18/2025 End: 01-08-2024 Magnesium [Mass/volume] in Serum or Plasma Magnesium Lab Routine Morning draw (Lab) for 5 Occurrences starting 01/04/2024 until 01/08/2024, 2 completed [facility] Work Phone: Comment on above: Morning draw (Lab) for 5 Occurrences sta rting 01/04/2024 until 01/08/2024, 2 completed End: 09-29-2023 Moderate Sedation Moderate Sedation Procedures Routine Once for 1 Occurrences starting 09/29/2023 until 09/29/2023 [facility] Work Phone: Comment on above: Once for 1 Occurrences starting 09/29/19 until 09/29/2023 End: 06-25-2022 OXIMETRY WITH AMBULATION OXIMETRY WITH AMBULATION PFT Routine Chronic obstructive pulmonary disease, unspecified COPD type (HCC) 1 Occurrences starting 05/26/2021 until 06/25/2022 [facility] Work Phone: Comment on above: 1 Occurrences starting 05/26/2021 until 06/25/2022 End: 02-06-2025 OXIMETRY WITH AMBULATION OXIMETRY WITH AMBULATION PFT Routine Hypoxia 1 Occurrences starting 01/08/2024 until 02/06/2025 [facility] Work Phone: Comment on above: 1 Occurrences starting 01/08/2024 until 02/06/2025 End: 09-18-2025 OXIMETRY WITH AMBULATION OXIMETRY WITH AMBULATION PFT Routine Hypersensitivity pneumonitis (HCC) 1 Occurrences starting 08/19/2024 until 09/18/2025 [facility] Work Phone: Comment on above: 1 Occurrences starting 08/19/2024 until 09/18/2025 Pulmonary rehabilita tion pro PULMONARY REHABILITATION PRO Procedures Routine Chronic obstructive pulmonary disease, unspecified COPD type (HCC) Ordered: 07/19/2021 [facility] Work Phone: Comment on above: Ordered: 07/19/2021 End: 01-02-2024 Pulse oximetry, continuous Pulse oximetry, continuous Respiratory Care Routine Continuous until discontinued starting 01/02/2024 [facility] Work Phone: Comment on above: Continuous until discontinued starting 1 03/03/2023 End: 09-29-2023 Pulse oximetry, continuous Pulse oximetry, continuous Respiratory Care Routine Continuous until discontinued starting 09/29/2023 [facility] Work Phone: Comment on above: Continuous until discontinued starting 0 09/29/2023 End: 09-29-2023 Pulse oximetry, spot Pulse oximetry, spot Respiratory Care Routine Once for 1 Occurrences starting 09/29/2023 until 09/29/2023 [facility] Work Phone: Comment on above: Once for 1 Occurrences starting 09/29/19 24 until 09/29/2023 End: 01-08-2024 Renal function 2000 panel - Serum or Plasma Renal Function Panel Lab Routine Morning draw (Lab) for 5 Occurrences starting 01/04/2024 until 01/08/2024, 2 completed [facility] Work Phone: Comment on above: Morning draw (Lab) for 5 Occurrences sta rting 01/04/2024 until 01/08/2024, 2 completed End: 01-06-2024 Respiratory care eval and treat Respiratory care eval and treat Respiratory Care Time Specific Once for 1 Occurrences starting 01/06/2024 until 01/06/2024 [facility] Work Phone: Comment on above: Once for 1 Occurrences starting 01/06/20 until 01/06/2024 End: 08-24-2024 Respiratory care eval and treat Respiratory care eval and treat Respiratory Care Time Specific Once for 1 Occurrences starting 08/24/2024 until 08/24/2024 [facility] Work Phone: Comment on above: Once for 1 Occurrences starting 08/25/19 until 08/24/2024 End: 07-03-2022 SPIROMETRY - BASELINE AND POST DILATOR SPIROMETRY - BASELINE AND POST DILATOR PFT Routine Dyspnea, unspecified type 1 Occurrences starting 06/03/2021 until 07/03/2022 [facility] Work Phone: Comment on above: 1 Occurrences starting 06/03/2021 until 07/03/2022 End: 12-25-2023 SPIROMETRY - BASELINE AND POST DILATOR SPIROMETRY - BASELINE AND POST DILATOR PFT Routine Uncomplicated asthma, unspecified asthma severity, unspecified whether persistent Hypersensitivity pneumonia (HCC) Interstitial pulmonary disease (HCC) 1 Occurrences starting 11/25/2022 until 12/25/2023 [facility] Work Phone: Comment on above: 1 Occurrences starting 11/25/2022 until 12/25/2023 End: 11-21-2022 SPIROMETRY BASELINE ONLY SPIROMETRY BASELINE ONLY PFT Routine Hypersensitivity pneumonitis (HCC) 1 Occurrences starting 10/22/2021 until 11/21/2022 [facility] Work Phone: Comment on above: 1 Occurrences starting 10/22/2021 until 11/21/2022 End: 07-15-2024 SPIROMETRY BASELINE ONLY SPIROMETRY BASELINE ONLY PFT Routine Hypersensitivity pneumonia (HCC) 1 Occurrences starting 06/16/2023 until 07/15/2024 [facility] Work Phone: Comment on above: 1 Occurrences starting 06/16/2023 until 07/15/2024 End: 08-18-2024 SPIROMETRY BASELINE ONLY SPIROMETRY BASELINE ONLY PFT Routine Hypersensitivity pneumonia (HCC) 1 Occurrences starting 07/20/2023 until 08/18/2024 [facility] Work Phone: Comment on above: 1 Occurrences starting 07/20/2023 until 08/18/2024 SPIROMETRY BASELINE ONLY SPIROME TRY BASELINE ONLY PFT Routine Hypersensitivity pneumonia (HCC) 10/17/2023 9:16 AM EDT [facility] Work Phone: End: 11-21-2024 SPIROMETRY BASELINE ONLY SPIROMETRY BASELINE ONLY PFT Routine Hypersensitivity pneumonitis (HCC) 1 Occurrences starting 10/23/2023 until 11/21/2024 [facility] Comment on above: 1 Occurrences starting 10/23/2023 until 11/21/2024 End: 06-14-2025 SPIROMETRY BASELINE ONLY SPIROMETRY BASELINE ONLY PFT Routine Hypersensitivity pneumonia (HCC) 1 Occurrences starting 05/15/2024 until 06/14/2025 [facility] Work Phone: Comment on above: 1 Occurrences starting 05/15/2024 until 06/14/2025 End: 09-18-2025 SPIROMETRY BASELINE ONLY SPIROMETRY BASELINE ONLY PFT Routine Hypersensitivity pneumonitis (HCC) 1 Occurrences starting 08/19/2024 until 09/18/2025 [facility] Comment on above: 1 Occurrences starting 08/19/2024 until 09/18/2025 Surgical pathology study [facility] Work Phone: Comment on above: Release Upon Ordering for 1 Occurrences starting 09/29/2023 TSH with reflex to F ree T4 if abnormal TSH with reflex to Free T4 if abnormal Lab Routine Thyroid disorder screening 10/11/2022 9:05 AM EDT [facility] Work Phone: [facility] Immunizations Immunization Date Immunization Notes Care Provider Guanako zamorano 12-21-2022 influenza virus vacc ine, unspecified formulation Gonzalez Ayers MD Work Phone: [facility] Work Phone: 11-24-2021 influenza virus vacc ine, unspecified formulation Naty Hall DO Work Phone: [facility] Work Phone: 08-09-2021 pneumococcal polysaccharide vaccine, 23 valent; Translations: [Pneumococcal polysaccharide vaccine, 23 valent] Naty Hall Work Phone: [facility] Comment on above: Series: 01-20-2021 Pfizer-BioNTech COVI D-19 Vacc 30 MCG/0.3ML Intramuscular Suspension Naty Hall Work Phone: [facility] Work Phone: 12-14-2020 influenza, injectabl e, quadrivalent, preservative free Naty Hall Work Phone: [facility] Work Phone: 05-24-2020 Pfizer-BioNTech COVI D-19 Vacc 30 MCG/0.3ML Intramuscular Suspension Marcela Buchanan Work Phone: [facility] Work Phone: 05-03-2020 Pfizer-BioNTech COVI D-19 Vacc 30 MCG/0.3ML Intramuscular Suspension Marcela Buchanan Work Phone: [facility] [address] Work Phone: 10-26-2019 Influenza, injectabl e, Madin Carlota Canine Kidney, preservative free, quadrivalent Marcela Buchanan Work Phone: [facility] Work Phone: 11-02-2016 influenza virus vacc ine, unspecified formulation; Translations: [Influenza] Marcela Buchanan Work Phone: [facility] Work Phone: Comment on above: Series: 11-02-2016 tetanus toxoid, redu rocco diphtheria toxoid, and acellular pertussis vaccine, adsorbed; Translations: [Tdap (Adacel)] Marcela Buchanan Work Phone: [facility] Work Phone: Comment on above: Series: NEGATED: Highlighted row has not occurred!01-05-2024 influenza, high dose seasonal, preservative-free Nilsa Earlruelviktor DO Work Phone: [facility] Comment on above: Deferred: Contraindi cation Payers Date Payer Category Payer Self-pay 2022 Medicare supplementa l policy (as second payer) [id number] 2022 Unknown 2021 Medicare MEDICARE MEDICAR E A AND B [id number] 2021-Present [phone] [place] [address] Medicare [id number] 2021 Medicare [id number] 2021 Private Health Insurance [facility] AAR SUPPLEMENT [id number] 2021-Present [phone] [address] [place] [address] Indemnity [id number] 2021 Private Health Insurance [id number]. [id number] 2021 Medicare [id number] 2021 Unknown [id number] 1955 Unknown [id number] 2.16840.1.817823.3.579. 2.1244 1955 Unknown [id number] 2.16840.1.065914.3.579. 2.1244 1956 Unknown [id number] 2.16840.1.193587.3.579. 2.1243 1956 Unknown [id number] 2.16840.1.161996.3.579. 2.1243 1956 Unknown [id number] 2.16840.1.078850.3.579. 2.1243 1956 Unknown [id number] 2.16840.1.220999.3.579. 2.1243 1956 Unknown [id number] 2.16.840.1.806953.3.579. 2.1243 1956 Unknown [id number] 2.16.840.1.833238.3.579. 2.1246 1956 Unknown [id number] 2.16840.1.115109.3.579. 2.1246 1956 Unknown [id number] 2.16840.1.421552.3.579. 2.1246 1956 Unknown [id number] 2.840.1.012059.3.579. 2.1246 1956 Unknown [id number] 2.840.1.664993.3.579. 2.1246 1956 Unknown [id number] .840.1.656548.3.579. 2.1246 1956 Unknown [id number] .840.1.313420.3.579. 2.1246 1956 Unknown [id number] .840.1.663375.3.579. 2.1246 1956 Unknown [id number] .840.1.532904.3.579. 2.1246 1956 Unknown [id number] .0.1.736909.3.579. 2.1246 1956 Unknown [id number] 840.1.246097.3.579. 2.1246 1956 Unknown [id number] .0.1.530035.3.579. 2.1246 1956 Unknown [id number] .1.344257.3.579. 2.1246 1956 Unknown [id number] 840.1.472116.3.579. 2.1246 1956 Unknown [id number] 840.1.721970.3.579. 2.1246 1956 Unknown [id number] .840.1.649963.3.579. 2.1246 Unknown [id number] 2.840.1.431428.3.579. 2.462 Unknown [id number] 2.840.1.244651.3.579. 2.462 Unknown [id number] 03.31.830.1.059907.3.579. 2.462 Social History Date Type Detail Facility Start: 05-12-2022 End: 08-17-2024 Single Single [facility] [facility] Work Phone: Comment on above: ; Start: 05-26-2021 End: 09-12-2024 Tobacco smoking status NHIS Ex-smoker [facility] Start: 05-26-2021 End: 09-06-2023 Tobacco use and exposure Smokeless tobacco non-user [facility] Start: 05-26-2021 End: 02-12-2024 Alcohol intake Ex-drinker (finding) [facility] Start: 05-26-2021 End: 05-12-2022 Tobacco Comment 30 YEAR AGO [facility] Start: 1955 Sex Assigned At Not on file C [facility] Start: 05-16-2021 End: 07-02-2024 Exposure to SARS-CoV-2 (event) Not sure [facility] History of tobacco use Current smoker [facility] Start: 05-12-2022 End: 08-17-2024 Tobacco use panel [facility] Start: 10-11-2022 Tobacco smoking stat us NHIS Never smoked tobacco [facility] Work Phone: Start: 1955 Sex Assigned At Female [facility] Start: 06-02-2022 Gender identity Identifies as female gender (finding) [facility] Work Phone: Start: 01-08-2022 National Score (1-10 0), lower number is lower risk 80 [facility] History of tobacco use Cigarette Smoker [facility] Work Phone: Start: 10-04-2023 End: 08-22-2024 Alcoholic beverage intake Lifetime non-drinker (finding) [facility] Work Phone: Has the [employer], [employer], [employer], or water [employer] threatened to shut off services in your home in past 12Mo No [facility] How often to you hav e a drink containing alcohol? Never [facility] Work Phone: How hard is it for y ou to pay for the very basics like food, housing, medical care, and heating Not very hard [facility] Work Phone: (I/We) worried dominic er (my/our) food would run out before (I/we) got money to buy more. Never true [facility] Work Phone: Medical Equipment Procedure Code Equipment Code Equipment Origin al Text Equipment Identifier Dates Cystoscopy, with botulinum toxin injection [id number],1ML FDA Start: 06-13-2024 Mclean, Biocompo site Corkscrew Ft, 5.5 X 14.7mm, W/Two 1.3 Suture Tape - [id number] Start: 08-14-2024 Mclean, Biocompo site Swivelock 4.75 X 19.1 - [id number] Start: 08-14-2024 Goals Date Patient Goal Desired Activity /State Functional Status Date Assessment Result Facility 08-14-2024 Total score [AUDIT-C] 0 08/15/19 25 5:59 PM EDT Anna Zuñiga, 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 [facility] Work Phone: 08-14-2024 Patient Health Quest ionnaire 2 item (PHQ-2) [Reported] [facility] Work Phone: 08-14-2024 [place] - suicide s everity rating scale screener - recent [C-SSRS] [facility] Work Phone: 05-31-2024 Patient Health Quest ionnaire 2 item (PHQ-2) [Reported] [facility] Work Phone: 05-31-2024 PHQ-9 quick depressi on assessment panel [Reported.PHQ] [facility] Work Phone: 05-28-2021 Are you blind, or do you have serious difficulty seeing, even when wearing glasses No 05/28/2021 5:49 PM EDT Washington Aguiar, RN No [facility] 05-28-2021 Do you have serious difficulty walking or climbing stairs No 05/28/2021 5:49 PM EDT Washington Aguiar, KATERINA No [facility] 05-28-2021 Do you have difficul ty dressing or bathing No 05/28/2021 5:49 PM Washington Hannah, RN No [facility] 05-28-2021 Because of a physica l, mental, or emotional condition, do you have difficulty doing errands alone such as visiting a physician's office or shopping No 05/28/2021 5:49 PM EDWashington Serrano, RN No [facility] Work Phone: Mental Status Date Assessment Result Facility 06-13-2024 Cognitive function Voice/Name [facility] Work Phone: 05-28-2021 Because of a physica l, mental, or emotional condition, do you have serious difficulty concentrating, remembering, or making decisions No 05/28/2021 5:49 PM Washington Hannah RN No [facility] Clinical Notes 11-14-2020 to 09-20-2024 Note Date & Type Note Facility 09-20-2024 Progress note [facility] 09-20-2024 Progress note Note Date/Time September 20, 2024 10:44am [facility] [address] [place] [address], [address] [place] [address] OFFICE VISIT Date of Service: 09/20/24 MR#: [id number] Acct: [id number] Name: KASSANDRA SMITH Rep #: [id number] : 1955 Provider: Dr. 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 Required: No Accompanied by: self Is patient in pain?: No Allergies No Known Allergies Allergy (Verified 09/20/24 10:20) Medications ?Medication ?Instructions ?Recorded ?Confirmed ?Type albuterol sulfate 90 mcg/actuation 2 puff inhalation Q 4H PRN PRN 05/30/24 History aerosol inhaler wheezing aspirin 81 mg chewable tablet 1 tab PO DAILY 05/30/24 09/20/24 History (Ban Chewable Low Dose Aspirin) atorvastatin 80 mg tablet 80 mg PO DAILY 05/30/2410/07 History budesonide-formoterol HFA 160 2 puff inhalation BID DC N wheezing 05/30/24 09/20/24 History mcg-4.5 mcg/actuation aerosol inhaler bupropion HCl 150 mg 24 hr tablet, 150 mg PO DAILY 09/20/24 History extended release citalopram 40 mg tablet 40 mg PO DAILY 05/30/2410/07 History gabapentin 300 mg capsule 300 mg PO DAILY 05/30/2410/07 History acetaminophen 500 mg tablet 500 mg PO Q6H PRN fever or pain 09/12/24 09/20/24 History meloxicam 15 mg tablet 15 mg PO DAILY PRN moderate pain 09/12/24 09/20/24 History moxifloxacin 0.5 % eye drops 1 drp RIGHT EYE 4X/DAY 09/20/24 History ondansetron 8 mg disintegrating 8 mg PO Q8H PRN PRN na usea and 09/12/24 09/20/24 History tablet vomiting Have you fallen in the past year?: No PFSH Medical History Constipation Vaginal atrophy Overactive bladder UTI (urinary tract infection) Kidney stones SHAQ (stress urinary incontinence, female) Intrinsic sphincter deficiency Post-menopausal Wears glasses Depression Former smoker Asthma Shortness of breath on exertion Surgical History H/O cystoscopy Hx of section Hx of cholecystectomy Hx of colonoscopy Family History Other Breast cancer Diabetes Heart disease Social History Smoking Status: Former smoker alcohol intake: never what type of physical activity do you participate in: other How many days of moderate to strenuous exercise, like a brisk walk, did you do in the last 7 days: 3 frequency: 3-4 times per week duration: other do you feel safe at home: Yes HPI HPI Urology Chief Complaint: preoperation urine and consent Details: KASSANDRA SMITH, is a 69 F. The patient is here for preoperative history and physical prior to cystoscopy with Bulkamid injection. There are no new symptoms since the last visit. The procedure, recovery and expectations were explained. The risks, benefits andalternatives were discussed, including but not limited to, the risks of anesthesia, bleeding, infection, injury, pain and the need for further intervention. We have discussed the risk of exposure to and/or potential harm posed by the COVID-19 virus with having a surgery/procedure at this time. A joint decision was made at this time to proceed with the scheduled surgery/procedure as indicated on the consent form. ROS Const Constitutional: No chills, fatigue, fever(s), headache(s), night sweats, weakness, weight change, abnormal sleep pattern or change in appetite Eyes Eyes: No change in vision ENT ENT: No headache(s) or dry mouth Resp Respiratory: No cough, chest congestion, shortness of breath or wheezing Cardio Cardiology: Positive for other (No chest pain.); No shortness of breath, irregular heart rhythm or lightheadedness Gastro GI: Positive for other (No nausea.); No abdominal pain, change in bowel habits, constipation, diarrhea or vomiting Musc Musculoskeletal: Positive for other (right rotator cuff repair 4 weeks ago, doing well); No abnormal gait Skin Skin: No yellowing of the eye, lesions, itchy eyes, rash or skin ulcer Neuro Neurology: No abnormal gait, confusion, dizziness, weakness, headache(s) or memory loss Psych Psychiatric: No abnormal sleep pattern, No change in appetite, No confusion and No memory loss Endo Endocrine: No fatigue, increased thirst/drinking or weight change Aller/Imm Allergy/Immunologic: No itchy eyes or wheezing Tigre/Lymp Hematologic/Lymphatic: No easy bleeding, easy bruising or enlarged lymph nodes Exam Const General: cooperative, healthy appearing, comfortable and no acute distress HENMT Head: normocephalic and atraumatic Ears: hearing grossly normal bilaterally and external ears normal Nose: external nose normal Eyes General: appearance normal, both eyes and all related structures Neck Neck: normal visual inspection and trachea midline Chest Chest palpation & inspection: normal inspection of the chest Resp Effort & Inspection: normal respiratory effort, able to speak in complete sentences and symmetric chest movement Cardio Rate: regular rate GI Inspection: normal to inspection Palpation: soft and nontender General: No CVA tenderness Skin General: no rashes or lesions noted Neuro General: patient alert, patient awake, patient oriented x3 and CN's II-XI intactbilaterally Extrem General: normal to inspection Psych Appearance: grossly normal and well kempt Mental Status: mental status grossly normal Results POC UA Auto w/o Microscopy Office Urine Color Last Edit by Bee Palmer on 09/20/24 10:29 Office Urine Clarity Last Edit by Bee Palmer on 09/20/24 10:29 Office Urine Glucose Negative Last Edit by Bee Palmer on 09/20/24 10:2 9 Office Urine Ketones Negative Last Edit by Bee Palmer on 09/20/24 10:2 9 Office Urine Bilirubin Negative Last Edit by Bee Palmer on 09/20/24 10 :29 Office Urine Urobilinogen Negative Last Edit by Bee Palmer on 09/20/24 10:29 Off Ur Spec [place] 1.020 Last Edit by Bee Palmer on 09/20/24 10:29 Office Urine pH 5 Last Edit by Bee Palmer on 09/20/24 10:29 Office Urine Protein Negative Last Edit by Bee Palmer on 09/20/24 10:2 9 Office Urine Blood Negative Last Edit by Bee Palmer on 09/20/24 10:29 Office Urine Blood Hemolyzed Negative Last Edit by Bee Palmer on 09/20 10:29 Office Urine Nitrate Negative Last Edit by Bee Palmer on 09/20/24 10:2 9 Off Ur Leukocytes Positive Last Edit by Bee Palmer on 09/20/24 10:29 Coding Level of Care Code Off vis,est,level 4 Diagnoses SHAQ (stress urinary incontinence, female) N39.3 Intrinsic sphincter deficiency N36.42 Overactive bladder N32.81 Vaginal atrophy N95.2 Constipation K59.00 Assessment and Plan Assessment and Plan (1) SHAQ (stress urinary incontinence, female): Status: Acute (2) Intrinsic sphincter deficiency: Status: Acute (3) Overactive bladder: Status: Acute (4) Vaginal atrophy: Status: Acute (5) Constipation: Status: Acute Orders: Orders POC UA Auto w/o Microscopy Today N39.3 - Stress incontinence (female) (male) Patient Instructions: urine culture today continue with procedure as scheduled Plan Details Follow Up: 2 Weeks (Bulkamid f/u) Clinical Quality Measures Falls Risk Screening/Assistive Devices Have you fallen in the past year?: No 09/20/24 1044 <Electronically signed by Jenny Correa MD> Date _ Jenny Correa MD Cosigner Signature: Date (if applicable) CC: ~ [facility] Work Phone: 1(195) 459-557107-17-2025 History of Present illness Narrative* Bright Escobedo, DO - 08/29/2024 2:15 PM EDT Subjective Patient ID: Kassandra Hankins is a 69 y.o. female who presents for hospital follow upfor breathing issues. [facility] Nhi is here for hospital follow up visit. Was discharged home with oxygen, followed up with her [employer] rep, had repeat testing and was able to be taken off of oxygen. She is feeling well, no shortness of breath. Continues to have some right shoulder pain, will be starting PT next week. Feeling steady on her feet, sleeping well at night.No other complaints at this time. Review of Systems A 10 point review of systems is otherwise negative unless stated in the HPI. Objective Vitals: 08/29/24 1421 BP: 102/70 Physical Exam GEN: alert, conversant, NAD HEENT: PERRL, EOMI, MMM, Tms pearly hylton bilaterally NECK: supple, no LAD appreciated CHEST: CTAB CV: S1, S2, RRR, no murmurs appreciated ABD: soft, NT, ND EXT: no significant LE edema. Right arm in a sling. SKIN: warm, dry Assessment/Plan #transitional care management -Reviewed recent hospitalization, including: labwork, imaging, documentation and reconciled currentmedications with patient #right rotator cuff tear s/p repair Underwent repair on 08/14/24, had post-op respiratory insufficiency. Discharged on home oxygen. Able to be weaned from oxygen after appointment with pulmonology. #ILD #asthma/COPD - following with Pulmonology - Using Advair - Uses albuterol inhaler, infrequently #Depression/Anxiety improved - Offered referral for counseling/therapy services, patient agreeable - Maintained on stable dose of celexa for ~30 years - continue wellbutrin 150mg daily #fatigue, much improved - encouraged routine sleep/wake cycle - avoid multiple daytime naps and allow for 8 hours of sleep nightly #OAB #stress incontinence Off of detrol - Following with a urology specialist in [place], improved with procedure, plans for repeat in 09/2024. # Dyslipidemia Continue with current management without changes: atorvastatin 80mg daily Discussed healthy diet and lifestyle. Health Maintenance: Vaccines: COVID (UTD), Flu (UTD), Shingles (advised), Pneumonia (x1, advised prevnar) Screening: Colonoscopy (2023, repeat in 1 year), mammogram (05/2024) Labs: None needed today RTC in 4 months, or sooner PRN Bright Escobedo DO [facility] Work Phone: 1(489) 806-516307-09-2025 Telephone encounter Note* Telephone Encounter - Carmelo Arizmendi MA - 08/21/2024 1:07 PM EDT faxed [facility]07-09-2025 Miscellaneous Notes* Telephone Encounter - Carmelo Arizmendi MA - 08/21/2024 1:07 PM EDT faxed * Telephone Encounter - Kayode Mckeon MD - 08/21/2024 1:00 PM EDT Dc oxygen order placed, please fax, thank you * Telephone Encounter - Kimberly Martins RN - 08/21/2024 12:52 PM EDT Patient updated Patient agreeable to have discontinue order sent [facility] fax [phone] * Telephone Encounter - Kayode Mckeon MD - 08/21/2024 12:11 PM EDT Please confirm with her that her oxygen walking test did not show her levels drop at all so she no longer needs to use oxygen. If she would like we can send a discontinue order to her provider [facility] Telephone encounter Note * Telephone Encounter - Kayode Mckeon MD - 08/21/2024 1:00 PM EDT Dc oxygen order placed, please fax, thank you [facility]07-09-2025 Telephone encounter Note* Telephone Encounter - Kimberly Martins RN - 08/21/2024 12:52 PM EDT Patient updated Patient agreeable to have discontinue order sent [facility] fax [phone] [facility] Work Phone: [phone]) 827-587607-09-2025 Telephone encounter Note* Telephone Encounter - Kayode Mckeon MD - 08/21/2024 12:11 PM EDT Please confirm with her that her oxygen walking test did not show her levels drop at all so she no longer needs to use oxygen. If she would like we can send a discontinue order to her provider [facility]07-09-2025 NoteHNO ID: [id number] Author: NATY MELGAR RRT Service: ? Author Type: Registered Resp Therapist Type: Procedures Filed: 08/21/2024 11:23 Note Text: RESPIRATORY THERAPY OXIMETRY WITH AMBULATION Oximetry with Ambulation Test for This Encounter O2 Device O2 Adapter NC O2 Flow SpO2% HR Activity Ft Walked (ft) Time (min) Avg Speed (MPH) R/A 92 77 Resting R/A 91 92 Walking, usual pace 455 3 1.72 R/A 97 77 Resting R/A 91 102 Walking, fastest pace 800 3 3.03 General Information Pulse Oximetry Site Total Time Spent Walking Assistance/O2 Supply Carrier Forehead 30 None NAME: Naty Melgar RRT PATIENT NAME: Kassandra Smith DATE: August 21, 2024 TIME: 11:23 AM Comment:[facility]07-09-2025 Procedure note* Naty Melgar RRT - 08/21/2024 11:23 AM EDTAssociated Order(s): OXIMETRY WITH AMBULATION RESPIRATORY THERAPY OXIMETRY WITH AMBULATION Oximetry with Ambulation Test for This Encounter O2 Device O2 Adapter NC O2 Flow SpO2% HR Activity Ft Walked (ft) Time (min) Avg Speed (MPH) R/A 92 77 Resting R/A 91 92 Walking, usual pace 455 3 1.72 R/A 97 77 Resting R/A 91 102 Walking, fastest pace 800 3 3.03 General Information Pulse Oximetry Site Total Time Spent Walking Assistance/O2 Supply Carrier Forehead 30 None NAME: Naty Melgar RRT PATIENT NAME: Kassandra Smith DATE: August 21, 2024 TIME: 11:23 AM Comment: [facility]07-09-2025 Procedure note* Naty Melgar RRT - 08/21/2024 11:23 AM EDTAssociated Order(s): OXIMETRY WITH AMBULATION RESPIRATORY THERAPY OXIMETRY WITH AMBULATION Oximetry with Ambulation Test for This Encounter O2 Device O2 Adapter NC O2 Flow SpO2% HR Activity Ft Walked (ft) Time (min) Avg Speed (MPH) R/A 92 77 Resting R/A 91 92 Walking, usual pace 455 3 1.72 R/A 97 77 Resting R/A 91 102 Walking, fastest pace 800 3 3.03 General Information Pulse Oximetry Site Total Time Spent Walking Assistance/O2 Supply Carrier Forehead 30 None NAME: Naty Melgar RRT PATIENT NAME: Kassandra Smith DATE: August 21, 2024 TIME: 11:23 AM Comment: documented in this encounterUniversity [facility]als [facility]07-08-[facility]25 History of Present illness Narrative* Jordan Maher MD - 08/20/2024 9:45 AM EDT Seen today following right shoulder arthroscopy rotator cuff repair on August 14, 2024. Doing better and having less pain. She was admitted after surgery with pulmonary issues and is now at home doing well. The portals are healed without evidence of infection. The sutures were removed and Steri-Strips applied. The arthroscopic pictures and postoperative precautions were reviewed. Physical therapy will be started. Follow up in 6 weeks. [facility] Work Phone: [phone] Telephone encounter Note* Telephone Encounter - Carmelo Arizmendi MA - 08/19/2024 2:53 PM EDT Pt notified [facility]07-07-2025 Miscellaneous Notes* Telephone Encounter - Carmelo Arizmendi MA - 08/19/2024 2:53 PM EDT Pt notified * Telephone Encounter - Kayode Mckeon MD - 08/19/2024 2:26 PM EDT Please let her know that we just received her hospital records, she had asked about it this morningand we had not had it yet * Telephone Encounter - Carmelo Arizmendi MA - 08/19/2024 2:12 PM EDT Outside records received. Please review below File Link Scan on 08/18/2024 7:35 AM by ProviderAmanda PA-C: Miscellaneous Clinical Documents documented in this encounterUniversity Hospitals [facility]07-07-2025 Telephone encounter Note * Telephone Encounter - Kayode Mckeon MD - 08/19/2024 2:26 PM EDT Please let her know that we just received her hospital records, she had asked about it this morningand we had not had it yet [facility] Work Phone: [phone] Telephone encounter Note* Telephone Encounter - Carmelo Arizmendi MA - 08/19/2024 2:12 PM EDT Outside records received. Please review below File Link Scan on 08/18/2024 7:35 AM by ProviderAmanda PA-C: Miscellaneous Clinical Documents [facility]07-07-2025 Instructions* Patient Instructions* Kayode Mckeon MD - 08/19/2024 9:10 AM EDT We discussed your breathing and lung health: - You have asthma and hypersensitivity pneumonitis, which cause inflammation and sensitivity in your airways. These conditions are on a similar spectrum and are treated similarly. - Your lung function remains unchanged from three months ago, even after your recent surgery. This is a positive sign. - You are currently using oxygen periodically during the day. We will perform an oxygen walking test this week to determine how much oxygen you need, particularly during exertion. For now, continue using oxygen as needed. We discussed your inhaler and medication options: - Your insurance does not currently cover Advair or Breo. You mentioned using GoodRx to find a moreaffordable option. If Advair Discus is the most cost- effective, it is better than not using an inhaler at all. - You do not need to use a daily inhaler unless you are experiencing symptoms. However, before stressors like surgery, I recommend using a full dose of Advair (or an equivalent inhaler) for three days prior to the procedure to reduce airway inflammation. - I will send in a one-time prescription for an inhaler without refills. Please message me with thespecific inhaler you choose based on cost. We discussed your current medications: - You are currently on a five-day course of prednisone (oral steroid). Please complete this as prescribed. If your breathing worsens after finishing the prednisone, let me know, as we may need to adjust your inhaled steroid use. - You do not need to use an inhaler daily unless symptoms worsen. Use it symptomatically or before stressors like surgery. We discussed your environment and potential triggers: - Your birds at home may contribute to airway irritation due to bird particles in the air. However,since you are feeling okay, no changes are needed at this time. If symptoms worsen, we may need to revisit this. Follow-up and next steps: - We will check back in four months to update your breathing test and reassess your condition. - Please notify us at least two weeks before any future surgeries so we can ensure your medicationsare optimized. - If you experience worsening breathing symptoms or have concerns about your oxygen use, please contact our office. Let me know if you have any questions or need further assistance with your medications or care plan. documented in this encounterUniversity Hospitals [facility]07-07-2025 NoteHNO ID: [id number] Author: KAYODE MCKEON MD Service: ? Author Type: Physician Type: Progress Notes Filed: 08/19/2024 09:19 Note Text: . Pulmonary Clinic Follow-up Note Patient Name: Kassandra Smith PRIMARY CARE PHYSICIAN: Marcela Buchanan MD Date of visit: August 19, 2024 COMMUNICATION WILL BE SENT VIA SHARED MEDICAL RECORDS OR US MAIL. Subjective: Kassandra Smith is a 69 year old year old female who presents for follow-up of asthma/copd, HP, last seen 3 months ago by Ivan. At that time she was started back up on ICS/LABA. Nhi reports increased dyspnea and fatigue prior to her recent surgery, which led her to use her inhaler more frequently. She was prescribed an inhaler 3 months ago but felt it was not effective, stating, I didn't feel it was doing what it was supposed to. She has been using Advair, 2 puffs once daily, occasionally twice daily, but her insurance no longer covers it, making it cost-prohibitive. She has about one week of Advair remaining. Nhi underwent surgery recently and was hospitalized from Monday to Monday. She was discharged with supplemental oxygen, which she uses periodically during the day, especially when at rest, such as watching TV. She was not given specific instructions on oxygen use at rest or with exertion. She is currently on a 5-day course of prednisone, with 5 days remaining. She reports feeling okay but notes that she has felt better. She denies having a clear understanding of her diagnosis, stating that she was unsure if she had asthma or COPD. She has a history of exposure to bird particles, as she keeps birds at home, which may contribute to her hypersensitivity pneumonitis. MEDICATIONS: budesonide-formoterol (SYMBICORT) 160-4.5 mcg/actuation inhaler Inhale 2 Puffs as instructed two times a day. fluticasone furoate-vilanterol (BREO ELLIPTA) 50-25 mcg/dose inhaler Inhale 1 Inhalation as instructed once daily. tolterodine ER (DETROL LA) 2 mg 24 hr capsule Take 2 mg by mouth. ADVAIR HFA 230-21 mcg/actuation inhaler INHALE 2 PUFFS BY MOUTH TWICE DAILY DIRECTED tolterodine (DETROL) 2 mg tablet Take 2 mg by mouth once daily. buPROPion SR (WELLBUTRIN SR) 150 mg 12 hr tablet Take 150 mg by mouth once daily. albuterol HFA (PROVENTIL HFA, VENTOLIN HFA) 90 mcg/actuation inhaler Inhale 2 Puffs as instructed every 4 hours as needed for wheezing/shortness of breath. fluticasone-salmeterol (ADVAIR DISKUS) 500-50 mcg/dose dsdv Inhale 1 Puff as instructed two times a day. pantoprazole DR (PROTONIX) 40 mg tablet Take 1 tablet by mouth daily at 6 am. tacrolimus (PROTOPIC) 0.1 % ointment APPLY TO AFFECTED TWICE DAILY X 14 DAYS, STOP FOR 1 WEEK AND RESUME IF NEEDED atorvastatin (LIPITOR) 80 mg tablet Take 1 tablet by mouth daily at bedtime. albuterol HFA (PROVENTIL HFA, VENTOLIN HFA) 90 mcg/actuation inhaler Inhale 1 Puff as instructed every 4 hours as needed for wheezing/shortness of breath. 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 albuterol (PROVENTIL) 2.5 mg /3 mL (0.083 %) nebulizer solution Use 3 mL via nebulizer every 4 hours as needed for wheezing/shortness of breath. citalopram (CELEXA) 40 mg tablet Take 40 mg by mouth once daily. oxybutynin (DITROPAN) 5 mg tablet Take 5 mg by mouth twice daily. calcium carbonate (CALTRATE) 600 mg calcium (1,500 mg) tab Take 1,200 mg by mouth once daily. Vit A,C and Q-Ydeykt-Vqxjccnt (OCUVITE) 300 mcg-200 mg-27 mg-2 mg tab Take 1 tablet by mouth once daily. aspirin, enteric coated (ASPIRIN, ENTERIC COATED) 81 mg EC tablet Take 81 mg by mouth once daily. Allergies: Patient has no known allergies. ROS: Pertinent positives and negatives are listed in the HPI, all other systems were reviewed and found to be negative. PHYSICAL EXAM: BP 132/78 (BP Site: Left Arm, BP Position: Sitting, BP Cuff Size: Regular Adult) Pulse 81 Ht 170.2 cm (5' 7) SpO2 91% BMI 31.01 kg/m? General- nad, comfortable Eyes- eomi ENT- mmm, oropharynx CV- RRR Resp- CTA bilaterally Ext- no clubbing, cyanosis, or edemas Psych- appropriate mood and affect Labs / Imaging / Diagnostic Studies: Reviewed spirometry from today which showed FEV1 62%, FVC 73%, and DLCO 75%. Assessment: Hypersensitivity pneumonitis-confirmed on bronchoscopy 02/2023. Was on systemic steroids for several months and weaned off altogether in July 2023. She no longer works at the [employer].using ICS/LABA PRN. Insurance a barrier to her care. Meghan and DLCO stable though was on oxygen for a few days post shoulder surgery, discharged home on oxygen without instructions on when to use it. Will update oximetry She will confirm cheapest ICS/LABA with goodrx and message us then we jo end in 1 month supply Before future surgeries would use ICS/LABA full dose 3 days before Possible component of (more content not included)...[facility] 08[facility] History of Present illness Narrative* Kayode Mckeon MD - 08/19/2024 8:52 AM EDT Images from the original note were not included. . Pulmonary Clinic Follow-up Note Patient Name: Kassandra Smith PRIMARY CARE PHYSICIAN: Marcela Buchanan MD Date of visit: August 19, 2024 COMMUNICATION WILL BE SENT VIA SHARED MEDICAL RECORDS OR US MAIL. Subjective: Kassandra Smith is a 69 year old year old female who presents for follow-up of asthma/copd, HP, last seen 3 months ago by Ivan. At that time she was started back up on ICS/LABA. Nhi reports increased dyspnea and fatigue prior to her recent surgery, which led her to use her inhaler more frequently. She was prescribed an inhaler 3 months ago but felt it was not effective, stating, I didn't feel it was doing what it was supposed to. She has been using Advair, 2 puffs once daily, occasionally twice daily, but her insurance no longer covers it, making it cost-prohibitive. She has about one week of Advair remaining. Nhi underwent surgery recently and was hospitalized from Monday to Monday. She was dischargedwith supplemental oxygen, which she uses periodically during the day, especially when at rest, suchas watching TV. She was not given specific instructions on oxygen use at rest or with exertion. She is currently on a 5-day course of prednisone, with 5 days remaining. She reports feeling okaybut notes that she has felt better. She denies having a clear understanding of her diagnosis, stating that she was unsure if she had asthma or COPD. She has a history of exposure to bird particles,as she keeps birds at home, which may contribute to her hypersensitivity pneumonitis. MEDICATIONS: budesonide-formoterol (SYMBICORT) 160-4.5 mcg/actuation inhaler Inhale 2 Puffs as instructed two times a day. fluticasone furoate-vilanterol (BREO ELLIPTA) 50-25 mcg/dose inhaler Inhale 1 Inhalation as instructed once daily. tolterodine ER (DETROL LA) 2 mg 24 hr capsule Take 2 mg by mouth. ADVAIR HFA 230-21 mcg/actuation inhaler INHALE 2 PUFFS BY MOUTH TWICE DAILY DIRECTED tolterodine (DETROL) 2 mg tablet Take 2 mg by mouth once daily. buPROPion SR (WELLBUTRIN SR) 150 mg 12 hr tablet Take 150 mg by mouth once daily. albuterol HFA (PROVENTIL HFA, VENTOLIN HFA) 90 mcg/actuation inhaler Inhale 2 Puffs as instructed every 4 hours as needed for wheezing/shortness of breath. fluticasone-salmeterol (ADVAIR DISKUS) 500-50 mcg/dose dsdv Inhale 1 Puff as instructed two times aday. pantoprazole DR (PROTONIX) 40 mg tablet Take 1 tablet by mouth daily at 6 am. tacrolimus (PROTOPIC) 0.1 % ointment APPLY TO AFFECTED TWICE DAILY X 14 DAYS, STOP FOR 1 WEEK AND RESUME IF NEEDED atorvastatin (LIPITOR) 80 mg tablet Take 1 tablet by mouth daily at bedtime. albuterol HFA (PROVENTIL HFA, VENTOLIN HFA) 90 mcg/actuation inhaler Inhale 1 Puff as instructed every 4 hours as needed for wheezing/shortness of breath. 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 albuterol (PROVENTIL) 2.5 mg /3 mL (0.083 %) nebulizer solution Use 3 mL via nebulizer every 4 hours as needed for wheezing/shortness of breath. citalopram (CELEXA) 40 mg tablet Take 40 mg by mouth once daily. oxybutynin (DITROPAN) 5 mg tablet Take 5 mg by mouth twice daily. calcium carbonate (CALTRATE) 600 mg calcium (1,500 mg) tab Take 1,200 mg by mouth once daily. Vit A,C and S-Bywryb-Wksvxlji (OCUVITE) 300 mcg-200 mg-27 mg-2 mg tab Take 1 tablet by mouth once daily. aspirin, enteric coated (ASPIRIN, ENTERIC COATED) 81 mg EC tablet Take 81 mg by mouth once daily. Allergies: Patient has no known allergies. ROS: Pertinent positives and negatives are listed in the HPI, all other systems were reviewed and found to be negative. PHYSICAL EXAM: BP 132/78 (BP Site: Left Arm, BP Position: Sitting, BP Cuff Size: Regular Adult) Pulse 81 Ht 170.2 cm (5' 7) SpO2 91% BMI 31.01 kg/m General- nad, comfortable Eyes- eomi ENT- mmm, oropharynx CV- RRR Resp- CTA bilaterally Ext- no clubbing, cyanosis, or edemas Psych- appropriate mood and affect Labs / Imaging / Diagnostic Studies: Reviewed spirometry from today which showed FEV1 62%, FVC 73%, and DLCO 75%. Assessment: Hypersensitivity pneumonitis-confirmed on bronchoscopy 02/2023. Was on systemic steroids for severalmonths and weaned off altogether in July 2023. She no longer works at the [employer].using ICS/LABA PRN. Insurance a barrier to her care. Meghan and DLCO stable though was on oxygen for a few days post shoulder surgery, discharged home onoxygen without instructions on when to use it. Will update oximetry She will confirm cheapest ICS/LABA with goodrx and message us then we jo end in 1 month supply Before future surgeries would use ICS/LABA full dose 3 days before Possible component of diastolic heart failure with slightly elevated left ventricular filling pressures - lasix in the past did not make a difference Smoking history, 9 pack years, quit at age 31 Hyperlipidemia 15 pet birds for 3 years, still int he house Physical deconditioning Plan: 1. Hypersensitivity pneumonitis (HCC) (J67.9) Asthma, unspecified asthma severity, unspecified whether complicated, unspecified whether persistent (HCC) (J45.909) Patient has a history of hypersensitivity pneumonitis and asthma, leading to inflamed airways and hypersensitivity reactions. Recent surgery required hospitalization from Monday to Monday, during which the patient was discharged with supplemental oxygen. Currently using oxygen periodically during the day. Lung function remains unchanged from three months ago. Patient is on a 5-day course of prednisone. Previously prescribed Advair HFA, but unable to afford it due to insurance issues. Patienthas a history of exposure to bird particles at home, which may exacerbate symptoms. - Discontinue daily use of Advair HFA; use only as needed based on symptoms. - Prescribe Advair Diskus as a cost-effective alternative, to be used daily for three days before any future surgeries to provide anti-inflammatory support. - Complete current 5-day course of prednisone. - Schedule an oxygen walk test this week to determine the exact oxygen requirements. - Follow-up in four months to update the breathing test before the holidays. I spent a total of 40 minutes on the date of the service which included preparing to see the patient, [id number] patient care, completing clinical documentation, obtaining and/or reviewing separately obtained history, performing a medically appropriate examination, counseling and educating the pat ient/family/caregiver, ordering medications, tests, or procedures and independently interpreting results (not separately reported). Kayode Mckeon MD August 19, 2024 9:14 AM documented in this encounterUniversity Hospitals [facility]07-07-2025 NoteHNO ID: [id number] Author: JAQUELIN BLACKMAN RN Service: ? Author Type: Registered Nurse Type: Progress Notes Filed: 08/19/2024 08:23 Note Text: Value Based Care Coordination Chart Review Provider Action / FYI: Upon review of patient chart, the patient is excluded from Transitional Disease Management Patient excluded from TCM outreach: SNF oon pcp Action taken: No action needed Jaquelin Blackman RN August 19, 2024 8:22 [facility]07-07-2025 History of Present illness Narrative* Jaquelin Blackman RN - 08/19/2024 8:22 AM EDT Value Based Care Coordination Chart Review Provider Action / FYI: Upon review of patient chart, the patient is excluded from Transitional Disease Management Patient excluded from TCM outreach: SNF oon pcp Action taken: No action needed Jaquelin Blackman RN August 19, 2024 8:22 AM documented in this encounterUniversity Hospitals [facility]07-07-2025 NotePatient Outreach ([facility]) KASSANDRA SMITH ([id number]) 1955 F Date Time Provider Department 08/19/24 JAQUELIN BLACKMAN During your visit today, we recorded the following information about you: Jaquelin Blackman RN 08/19/2024 8:23 AM Signed Value Based Care Coordination Chart Review Provider Action / FYI: Upon review of patient chart, the patient is excluded from Transitional Disease Management Patient excluded from TCM outreach: SNF oon pcp Action taken: No action needed Jaquelin Blackman RN August 19, 2024 8:22 AM Allergies As of Date: 08/19/2024 (No Known Allergies) Date Reviewed: 05/15/2024 Reviewed by: Ivan Talavera PA-C - Fully Assessed Reason for Visit: Transition Of Care [4074] Cmt: Chart review Prescriptions as of 08/19/2024 - budesonide-formoterol (SYMBICORT) 160-4.5 mcg/actuation inhaler Inhale 2 Puffs as instructed two times a day. - fluticasone furoate-vilanterol (BREO ELLIPTA) 50-25 mcg/dose inhaler Inhale 1 Inhalation as instructed once daily. - tolterodine ER (DETROL LA) 2 mg 24 hr capsule Take 2 mg by mouth. - ADVAIR HFA 230-21 mcg/actuation inhaler INHALE 2 PUFFS BY MOUTH TWICE DAILY DIRECTED - tolterodine (DETROL) 2 mg tablet Take 2 mg by mouth once daily. - buPROPion SR (WELLBUTRIN SR) 150 mg 12 hr tablet Take 150 mg by mouth once daily. - albuterol HFA (PROVENTIL HFA, VENTOLIN HFA) 90 mcg/actuation inhaler Inhale 2 Puffs as instructed every 4 hours as needed for wheezing/shortness of breath. - fluticasone-salmeterol (ADVAIR DISKUS) 500-50 mcg/dose dsdv Inhale 1 Puff as instructed two times a day. - pantoprazole DR (PROTONIX) 40 mg tablet Take 1 tablet by mouth daily at 6 am. - tacrolimus (PROTOPIC) 0.1 % ointment APPLY TO AFFECTED TWICE DAILY X 14 DAYS, STOP FOR 1 WEEK AND RESUME IF NEEDED - atorvastatin (LIPITOR) 80 mg tablet Take 1 tablet by mouth daily at bedtime. - albuterol HFA (PROVENTIL HFA, VENTOLIN HFA) 90 mcg/actuation inhaler Inhale 1 Puff as instructed every 4 hours as needed for wheezing/shortness of breath. Inhale 1 to 2 puffs every 4 to 6 hours as needed - Miscellaneous Medical Supply Dispense one nebulizer compressor with lifetime supplies. - albuterol (PROVENTIL) 2.5 mg /3 mL (0.083 %) nebulizer solution Use 3 mL via nebulizer every 4 hours as needed for wheezing/shortness of breath. - citalopram (CELEXA) 40 mg tablet Take 40 mg by mouth once daily. - oxybutynin (DITROPAN) 5 mg tablet Take 5 mg by mouth twice daily. - calcium carbonate (CALTRATE) 600 mg calcium (1,500 mg) tab Take 1,200 mg by mouth once daily. - Vit A,C and Z-Qnoamn-Ccpwybfh (OCUVITE) 300 mcg-200 mg-27 mg-2 mg tab Take 1 tablet by mouth once daily. - aspirin, enteric coated (ASPIRIN, ENTERIC COATED) 81 mg EC tablet Take 81 mg by mouth once daily. Problem List As Of Date 08/19/2024 Noted Resolved Hypoxia [R09.02] 05/26/2021 Hypersensitivity pneumonia (HCC) [J67.9] 03/14/2023 Interstitial lung disease (HCC) [J84.9] 03/14/2023 Need for pneumocystis prophylaxis [Z29.89] 03/15/2023 Acute hypoxemic respiratory failure (HCC) [J96.*03/15/2023 Encounter Status:Closed by JAQUELIN BLACKMAN on 08/19/24[facility] 08-17-2024 Plan of care note* Care Plan - Ana Levin RN - 08/17/2024 3:23 PM EDT The patient's goals for the shift include The clinical goals for the shift include comfort and safety needs Problem: Pain - Adult Goal: Verbalizes/displays adequate comfort level or baseline comfort level Outcome: Progressing Problem: Safety - Adult Goal: Free from fall injury Outcome: Progressing Problem: Discharge Planning Goal: Discharge to home or other facility with appropriate resources Outcome: Progressing Problem: Chronic Conditions and Co-morbidities Goal: Patient's chronic conditions and co-morbidity symptoms are monitored and maintained or improved Outcome: Progressing Problem: Nutrition Goal: Nutrient intake appropriate for maintaining nutritional needs Outcome: Progressing [facility] Work Phone: [phone]) 808-356707-05-2025 Miscellaneous Notes* Care Plan - Ana Levin RN - 08/17/2024 3:23 PM EDT The patient's goals for the shift include The clinical goals for the shift include comfort and safety needs Problem: Pain - Adult Goal: Verbalizes/displays adequate comfort level or baseline comfort level Outcome: Progressing Problem: Safety - Adult Goal: Free from fall injury Outcome: Progressing Problem: Discharge Planning Goal: Discharge to home or other facility with appropriate resources Outcome: Progressing Problem: Chronic Conditions and Co-morbidities Goal: Patient's chronic conditions and co-morbidity symptoms are monitored and maintained or improved Outcome: Progressing Problem: Nutrition Goal: Nutrient intake appropriate for maintaining nutritional needs Outcome: Progressing * Care Plan - Darby Joseph RN - 08/17/2024 1:26 AM EDT The patient's goals for the shift include pain control. The clinical goals for the shift include pt will not be SOB * Care Plan - Cleo Odonnell LPN - 08/16/2024 11:46 AM EDT The patient's goals for the shift include The clinical goals for the shift include pt will not be SOB Problem: Pain - Adult Goal: Verbalizes/displays adequate comfort level or baseline comfort level Outcome: Progressing Problem: Safety - Adult Goal: Free from fall injury Outcome: Progressing Problem: Discharge Planning Goal: Discharge to home or other facility with appropriate resources Outcome: Progressing Problem: Chronic Conditions and Co-morbidities Goal: Patient's chronic conditions and co-morbidity symptoms are monitored and maintained or improved Outcome: Progressing Problem: Nutrition Goal: Nutrient intake appropriate for maintaining nutritional needs Outcome: Progressing * Care Plan - Anu Sharp RN - 08/15/2024 11:04 PM EDT The patient's goals for the shift include safety and comfort Problem: Pain - Adult Goal: Verbalizes/displays adequate comfort level or baseline comfort level Outcome: Progressing Problem: Safety - Adult Goal: Free from fall injury Outcome: Progressing Problem: Discharge Planning Goal: Discharge to home or other facility with appropriate resources Outcome: Progressing Problem: Chronic Conditions and Co-morbidities Goal: Patient's chronic conditions and co-morbidity symptoms are monitored and maintained or improved Outcome: Progressing Problem: Nutrition Goal: Nutrient intake appropriate for maintaining nutritional needs Outcome: Progressing The clinical goals for the shift include Pt will remain safe and comfortable during the shift * Care Plan - Pari Rios RN - 08/15/2024 1:24 PM EDT The patient's goals for the shift include The clinical goals for the shift include safety and comfort * Assessment & Plan Note - BILLY Jordan - 08/15/2024 9:01 AM EDT Associated Problem(s): S/P right rotator cuff repair POD #1: patient admitted observation status s/p rotator cuff repair by medical service due to pulmonary issues. Has history of COPD. Does not normally use oxygen at home. * Care Plan - Pari Disa RN - 08/14/2024 11:00 PM EDT The patient's goals for the shift include The clinical goals for the shift include spo2 above 92% * Care Plan - Pari Dias RN - 08/14/2024 11:00 PM EDT The patient's goals for the shift include The clinical goals for the shift include spo2 above 92% * Care Plan - Pari Rios RN - 08/14/2024 6:07 PM EDT The patient's goals for the shift include The clinical goals for the shift include spo2 above 92% * Care Plan - Jordan Maher MD - 08/14/2024 5:17 PM EDT 69-year-old had uneventful right shoulder arthroscopic rotator cuff repair. She has had difficulty maintaining oxygen saturation on room air while in the PACU. She has baseline pulmonary issues and had a interscalene block and this is likely a contributing factor. Communication was done with Dr. Escobedo and the patient will be kept at least overnight for observation. * Op Note - Jordan Maher MD - 08/14/2024 10:32 AM EDT RIGHT SHOULDER ARTHROSCOPIC ROTATOR CUFF REPAIR (R), SUBACROMIAL DECOMPRESSION (R), DEBRIDEMENT (R)Operative Note Date: 08/14/2024 OR Location: [facility] OR Name: Kassandra Hankins, : 1955, Age: 69 y.o., , Sex: female Diagnosis Pre-op Diagnosis * Rotator cuff strain, right, initial encounter [S46.011A] Post-op Diagnosis * Rotator cuff strain, right, initial encounter [S46.011A], labral tear, chondromalacia, impingement Procedures Right shoulder arthroscopy with arthroscopic rotator cuff repair and extensive debridement and subacromial decompression Surgeons * Jordan Maher - Primary Resident/Fellow/Other Magazine Filler: Jorge Barton Staff: Substation Operator Conversion: Melisa Scrub Person: Isak Pan Devulcanizer: Lonnie Anesthesia Staff: Anesthesiologist (Solo in Case): Taras Knox MD Procedure Summary Anesthesia: Regional, General ASA: III Estimated Blood Loss: 5 mL Indications: 69-year-old with right shoulder rotator cuff tear. Treatment options clued no treatment reviewed and the decision was made proceed with surgery. Description procedure patient was brought in the operating room. General anesthesia was performed. Scalene block had been performed in the preoperative area. She was positioned in the lateral decubitus position prepped and draped in usual fashion. The joint injected with saline and a posterior thrust portal established. Arthroscopic examination of the joints performed. There was a full- thickness tear involving the entirety of the supraspinatus tendon. There was tearing involving the superior labrum anteriorly and posteriorly. There was grade II chondromalacia on the superior glenoid. Grade IIchondromalacia on the posterior humeral head. Subscapularis tendon was intact. The anterior-inferior and posterior inferior labrum were intact. No loose bodies inferior pouch. Anterior portal was established. The motorized shaver was introduced. With the motorized shaver debridement of the labrum was done to provide stable cartilage edge. Motorized shaver was used to perform chondroplasty of the glenoid. Motorized shaver was also used to perform chondroplasty involving the humeral head. The rotator cuff was debrided to healthier appearing tissue. There was partial articular sided tearing involving the superior aspect of the subscapularis tendon and this was debrided and the insertion was carefully visualized and was intact. The arthroscope was placed anteriorly and the motorized shaver was introduced to the posterior portal and additional labral debridement as well as chondroplasty along the posterior aspect the humeral head was done. The bicep tendon had a normal appearance. The arthroscope was placed in the subacromial space. There was extensive subacromial bursitis. A lateral portal was established. Using combination of the shaver and the radiofrequency wand subacromial bursectomy was performed. The CA ligament was released. Using the motorized bur acromioplasty was performeduntil there was adequate decompression of the subacromial space. There was a infraclavicular spur along the distal clavicle and using the motorized bur this was removed and the distal clavicle was coplaning. The rotator cuff was visualized from the bursal side and this was a full-thickness tear. With the motorized shaver the rotator cuff was debrided to healthier appearing tissue. Soft tissue wasdebrided from the greater tuberosity to create a bleeding surface. Through an accessory portal and A rthrex bio composite corkscrew anchor was placed. This had good purchase in the bone. The sutures were passed in a mattress type fashion through the rotator cuff and then tied down with arthroscopic knot tying. An additional margin convergence suture was placed posteriorly and then tied down with arthroscopic knot tying. The sutures were then secured to the lateral cortex of the humerus with an Arthrex swivel lock anchor to provide for modified double row fixation. Very secure fixation of the rotator cuff was obtained in this manner. The shoulder was well irrigated. Hemostasis obtained as needed. The instruments removed portals closed with nylon suture sterile dressing and a sling were appli ed and she tolerated procedure well and was taken to the recovery room in a stable condition. Intra-op Medications: Administrations occurring from 0930 to 1140 on 08/14/24: Medication Name Total Dose dexAMETHasone (Decadron) 4 mg/mL IV Syringe 2 mL 4 mg fentaNYL (Sublimaze) injection 50 mcg/mL 100 mcg LR infusion 169.94 mL lidocaine (cardiac) injection 2% prefilled syringe 100 mg ondansetron (Zofran) 2 mg/mL injection 4 mg propofol (Diprivan) injection 10 mg/mL 120 mg rocuronium (ZeMuron) 50 mg/5 mL injection 50 mg sugammadex (Bridion) 200 mg/2 mL injection 200 mg ceFAZolin (Ancef) 2 g in dextrose (iso) IV 50 mL 2 g Anesthesia Record Intraprocedure I/O Totals Intake LR infusion 400.00 mL Total Intake 400 mL Specimen: No specimens collected Implants: Implants Type Name Action Serial No. Screw ANCHOR, BIOCOMPOSITE CORKSCREW FT, 5.5 X 14.7MM, W/TWO 1.3 SUTURE TAPE - [id number] Implanted Screw ANCHOR, BIOCOMPOSITE SWIVELOCK 4.75 X 19.1 - [id number] Implanted Task Performed by INCLUSION INTERN or Pan Devulcanizer: Assistance was required due to the complexity of the procedure. No qualified resident was available. Assistance was required throughout the procedure for positioning of the arm, suture passage and management, anchor placement, positioning of the camera, knot-tying and wound closure. Attending Attestation: I performed the procedure. Jordan Maher [facility] Work Phone: 1(290) 233-340807-05-2025 Nurse Note* Ana Levin RN - 08/17/2024 2:29 PM EDT Pulse ox at rest on room air: 92% Pulse ox on room air ambulatin% Pulse ox on 4L NC walkin% [facility]07-05-20[facility] Nurse Note* Ana Levin RN - 08/17/2024 2:29 PM EDT Pulse ox at rest on room air: 92% Pulse ox on room air ambulatin% Pulse ox on 4L NC walkin% documented in this encounterUn[facility] Work Phone: 1(482) 302-356107-05-2025 Hospital Discharge instructions* Discharge Instructions* Carin Villalpando MD - 08/17/2024 12:42 PM EDT Thank you for letting me take care of you during your stay. Spirometry use is highly encouraged frequently beside your home Oxygen Follow up with your university partnership rep Dr. Mckeon on Monday08/19/24. Follow up with PCP in 2 weeks for your recent hospital stay. Please find information in your after visit summary. documented in this encounterUnPrem[facility] Work Phone: [phone]) 702-862407-05-2025 Plan of care note* Care Plan - Darby Joseph RN - 08/17/2024 1:26 AM EDT The patient's goals for the shift include pain control. The clinical goals for the shift include pt will not be SOB [facility]07-04-2025 History of Present illness Narrative * Carin Villalpando MD - 08/16/2024 1:05 PM EDT Subjective Patient was seen and examined at bedside. She she was advised on using the spirometry. She said sheis using it as frequent as she can. she complains of shoulder pain rated 9/10. She wants to go homesoon. Objective Vitals: 08/16/24 0753 BP: 144/70 Pulse: 64 Resp: 18 Temp: 37 C (98.6 F) SpO2: 91% Physical Exam: Constitutional: well developed, awake, alert, no acute distress Respiratory/Thorax: patent airways, CTAB; no wheezes, rales, or rhonchi. She is on 4.5 L of oxygen. Cardiovascular: RRR, no murmur Gastrointestinal: soft, nondistended, non-tender, bowel sounds appreciated Extremities: palpable peripheral pulses, no edema or cyanosis Assessment/Plan 69-year-old woman with PMH of asthma/COPD and HLD presented to medical floor after she developed acute hypoxic respiratory failure post elective right rotator cuff repair. We are currently managing her as follows: #Acute post operative respiratory insufficiency: Patient afebrile, WBC went down to 9.6 from 13 (reactive leukocytosis), no PFT on file, CXR (08/15) showed Right lower small ill-defined opacity unclear if atelectasis or infiltrates and would warrant follow-up to ensure resolution. Plan C/W Breo Ellipta C/W incentive spirometry Wean off oxygen as able. Advice on walks and assess for possible home going O2 needs. OT evaluation # Constipation: Start Metamucil and Sofia-Colace #Right rotator cuff injury s/p arthroscopic repair: C/W Tylenol and tramadol prn #Chronic Conditions: > Depression/anxiety: Continue bupropion, Celexa > Overactive bladder > CAD: aspirin > HLD: Continue Atorvastatin > Chronic pain: Continue gabapentin #Checklist: Code Status: DNR DVT ppx- lovenox Diet-regular Carin Villalpando MD Internal Medicine PGY1 Cosigned by Bright Escobedo DO at 08/16/2024 5:30 PM EDT Associated attestation - Bright Escobedo DO - 08/16/2024 5:30 PM EDT Trainee role: Resident I saw and evaluated the patient. I personally obtained the bedoya and critical portions of the historyand physical exam or was physically present for bedoya and critical portions performed by the trainee.I reviewed the trainee's documentation and discussed the patient with the trainee. I agree with the trainee's medical decision making as documented on the trainee's notes. Remains on 4L NC this morning. Wean as tolerated. May need home oxygen to continue slow taper off of oxygen. Bright Escobedo DO * Alanis Shannon RN - 08/16/2024 11:33 AM EDT Pt denies any needs, although pt may need home 02 at discharge. Notified Aida and her number is [phone] --RN to call if pt needs home 02. Alanis Shannon RN TCC * MAKENNA Aburto - 08/15/2024 3:10 PM EDT 08/15/24 1509 Discharge Planning Living Arrangements Family members Support Systems Family members Assistance Needed Pt denies needing assistance Type of Residence Private residence Number of Stairs to Enter Residence 3 Number of Stairs Within Residence 25 Do you have animals or pets at home? Yes Type of Animals or Pets 4 dogs Expected Discharge Disposition Home Does the patient need discharge transport arranged? No Financial Resource Strain How hard is it for you to pay for the very basics like food, housing, medical care, and heating? Not very Stroke Family Assessment Stroke Family Assessment Needed No Intensity of Service Intensity of Service 0-30 min SW met with Pt at bedside to complete DC planning assessment. Introduced self and explained role. Verified name, , demographics, PCP. Pt comes from home, she resides with her sister and nephew. There are 3 steps to enter the home and about 25 inside the home. Pt is independent. Pt is able to obtain meals and medications. Pt sister will transport her upon DC. DC plan is home pending therapy eval. SW will continue to provide support and services as needed. * Carin Villalpando MD - 08/15/2024 2:25 PM EDT Subjective Patient was seen and examined the bedside. Denies any active complaints at this time. She is on 4 Lof oxygen. Was able to tolerate diet. Denies any nausea/vomiting. Last bowel movement was 2 days ago. Objective Vitals: 08/15/24 0810 BP: 123/57 Pulse: 65 Resp: 16 Temp: 36.3 C (97.3 F) SpO2: (!) 89% Physical Exam: Constitutional: well developed, awake, alert, no acute distress Respiratory/Thorax: patent airways, CTAB; no wheezes, rales, or rhonchi Cardiovascular: RRR, no murmur Gastrointestinal: soft, nondistended, non-tender, bowel sounds appreciated Extremities: palpable peripheral pulses, no edema or cyanosis Assessment/Plan 69-year-old woman with PMH of asthma/COPD and HLD presented to medical floor after she developed acute hypoxic respiratory failure post elective right rotator cuff repair. We are currently managing her as follows: #Acute post operative respiratory insufficiency: Patient afebrile, WBC = 13.5 (increased from 9 yesterday), no PFT on file, CXR (08/15) showed Right lower small ill-defined opacity unclear if atelectasis or infiltrates and would warrant follow-up to ensure resolution. Plan C/W Breo Ellipta C/W incentive spirometry Wean off oxygen as able. # Constipation: Start Metamucil and Sofia-Colace #Right rotator cuff injury s/p arthroscopic repair: C/W Tylenol and tramadol prn #Chronic Conditions: > Depression/anxiety: Continue bupropion, Celexa > Overactive bladder > CAD: aspirin > HLD: Continue Atorvastatin > Chronic pain: Continue gabapentin #Checklist: Code Status: DNR DVT ppx- lovenox Diet-regular Carin Villalpando MD Internal Medicine PGY1 Cosigned by Bright Escobedo DO at 08/16/2024 5:28 PM EDT Associated attestation - Bright Escobedo DO - 08/16/2024 5:28 PM EDT Trainee role: Resident I saw and evaluated the patient. I personally obtained the bedoya and critical portions of the historyand physical exam or was physically present for bedoya and critical portions performed by the trainee.I reviewed the trainee's documentation and discussed the patient with the trainee. I agree with the trainee's medical decision making as documented on the trainee's notes. Patient is without complaint this morning. Remains on oxygen. CXR without focal consolidation. No fevers, chills, or infectious symptoms. Bright Escobedo, DO * Kimberly Whitney, 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-CARBONIZER TESTER - 08/15/2024 8:56 AM EDT Kassandra Hankins is a 69 y.o. female on day 0 of admission presenting with Rotator cuff strain, right, initial encounter. Subjective Patient c/o moderate to severe incisional pain Remains on oxygen via nasal cannula Objective Physical Exam Vitals reviewed. Musculoskeletal: Comments: Neurovascular status WNL RUE Skin: Comments: Dressing D&I to right shoulder incision Sling remains in place to RUE Neurological: Mental Status: She is alert. Last Recorded Vitals Blood pressure 123/57, pulse 65, temperature 36.3 C (97.3 F), temperature source Temporal, resp. rate 16, height 1.702 m (5' 7), weight 85 kg (187 lb 6.3 oz), SpO2 (!) 89%. Intake/Output last 3 Shifts: I/O last 3 completed shifts: In: 1400 (16.5 mL/kg) [I.V.:1400 (16.5 mL/kg)] Out: - (0 mL/kg) Weight: 85 kg Relevant Results Scheduled medications Scheduled Medications[1] Continuous medications Continuous Medications[2] PRN medications PRN Medications[3] Results for orders placed or performed during the hospital encounter of 08/14/24 (from the past 24 hours) CBC and Auto Differential Result Value Ref Range WBC 9.0 4.4 - 11.3 x10*3/uL nRBC 0.0 0.0 - 0.0 /100 WBCs RBC 4.41 4.00 - 5.20 x10*6/uL Hemoglobin 14.5 12.0 - 16.0 g/dL Hematocrit 45.4 36.0 - 46.0 % MCV 103 (H) 80 - 100 fL MCH 32.9 26.0 - 34.0 pg MCHC 31.9 (L) 32.0 - 36.0 g/dL RDW 13.0 11.5 - 14.5 % Platelets 246 150 - 450 x10*3/uL Neutrophils % 92.3 40.0 - 80.0 % Immature Granulocytes %, Automated 0.7 0.0 - 0.9 % Lymphocytes % 6.0 13.0 - 44.0 % Monocytes % 0.9 2.0 - 10.0 % Eosinophils % 0.0 0.0 - 6.0 % Basophils % 0.1 0.0 - 2.0 % Neutrophils Absolute 8.31 (H) 1.20 - 7.70 x10*3/uL Immature Granulocytes Absolute, Automated 0.06 0.00 - 0.70 x10*3/uL Lymphocytes Absolute 0.54 (L) 1.20 - 4.80 x10*3/uL Monocytes Absolute 0.08 (L) 0.10 - 1.00 x10*3/uL Eosinophils Absolute 0.00 0.00 - 0.70 x10*3/uL Basophils Absolute 0.01 0.00 - 0.10 x10*3/uL Comprehensive metabolic panel Result Value Ref Range Glucose 127 (H) 74 - 99 mg/dL Sodium 141 136 - 145 mmol/L Potassium 4.6 3.5 - 5.3 mmol/L Chloride 108 (H) 98 - 107 mmol/L Bicarbonate 27 21 - 32 mmol/L Anion Gap 11 10 - 20 mmol/L Urea Nitrogen 11 6 - 23 mg/dL Creatinine 0.84 0.50 - 1.05 mg/dL eGFR 76 >60 mL/min/1.73m*2 Calcium 8.4 (L) 8.6 - 10.3 mg/dL Albumin 3.8 3.4 - 5.0 g/dL Alkaline Phosphatase 107 33 - 136 U/L Total Protein 6.5 6.4 - 8.2 g/dL AST 14 9 - 39 U/L Bilirubin, Total 0.5 0.0 - 1.2 mg/dL ALT 14 7 - 45 U/L Basic metabolic panel Result Value Ref Range Glucose 108 (H) 74 - 99 mg/dL Sodium 142 136 - 145 mmol/L Potassium 4.3 3.5 - 5.3 mmol/L Chloride 108 (H) 98 - 107 mmol/L Bicarbonate 28 21 - 32 mmol/L Anion Gap 10 10 - 20 mmol/L Urea Nitrogen 14 6 - 23 mg/dL Creatinine 0.82 0.50 - 1.05 mg/dL eGFR 78 >60 mL/min/1.73m*2 Calcium 8.5 (L) 8.6 - 10.3 mg/dL CBC Result Value Ref Range WBC 13.5 (H) 4.4 - 11.3 x10*3/uL nRBC 0.0 0.0 - 0.0 /100 WBCs RBC 4.22 4.00 - 5.20 x10*6/uL Hemoglobin 13.5 12.0 - 16.0 g/dL Hematocrit 43.4 36.0 - 46.0 % MCV 103 (H) 80 - 100 fL MCH 32.0 26.0 - 34.0 pg MCHC 31.1 (L) 32.0 - 36.0 g/dL RDW 13.0 11.5 - 14.5 % Platelets 244 150 - 450 x10*3/uL Assessment & Plan Rotator cuff strain, right, initial encounter S/P rotator cuff repair S/P right rotator cuff repair POD #1: patient admitted observation status s/p rotator cuff repair by medical service due to pulmonary issues. Has history of COPD. Does not normally use oxygen at home. Oxycodone added for severe incisional pain relief as well as routine tylenol. Will order OT evaluation to assist/teach patient basic ADLs Has follow up appointment scheduled with Dr Maher for 08/20. Home going scripts (tylenol, oxycodone and zofran) have been sent to pharmacy. BILLY Jordan [1] acetaminophen, 975 mg, oral, q8h aspirin, 81 mg, oral, Daily atorvastatin, 80 mg, oral, Daily buPROPion XL, 150 mg, oral, q AM citalopram, 40 mg, oral, Daily enoxaparin, 40 mg, subcutaneous, Daily fluticasone furoate-vilanteroL, 1 puff, inhalation, Daily gabapentin, 300 mg, oral, Nightly scopolamine, 1 patch, transdermal, Once [2] [3] PRN medications: oxyCODONE, oxyCODONE, traMADol documented in [facility] Work Phone: 1(989) 492-181007-04-2025 Plan of care note* Care Plan - Cleo Odonnell LPN - 08/16/2024 11:46 AM EDT The patient's goals for the shift include The clinical goals for the shift include pt will not be SOB Problem: Pain - Adult Goal: Verbalizes/displays adequate comfort level or baseline comfort level Outcome: Progressing Problem: Safety - Adult Goal: Free from fall injury Outcome: Progressing Problem: Discharge Planning Goal: Discharge to home or other facility with appropriate resources Outcome: Progressing Problem: Chronic Conditions and Co-morbidities Goal: Patient's chronic conditions and co-morbidity symptoms are monitored and maintained or improved Outcome: Progressing Problem: Nutrition Goal: Nutrient intake appropriate for maintaining nutritional needs Outcome: Progressing [facility]07-03-2025 Plan of care note* Care Plan - Anu Sharp RN - 08/15/2024 11:04 PM EDT The patient's goals for the shift include safety and comfort Problem: Pain - Adult Goal: Verbalizes/displays adequate comfort level or baseline comfort level Outcome: Progressing Problem: Safety - Adult Goal: Free from fall injury Outcome: Progressing Problem: Discharge Planning Goal: Discharge to home or other facility with appropriate resources Outcome: Progressing Problem: Chronic Conditions and Co-morbidities Goal: Patient's chronic conditions and co-morbidity symptoms are monitored and maintained or improved Outcome: Progressing Problem: Nutrition Goal: Nutrient intake appropriate for maintaining nutritional needs Outcome: Progressing The clinical goals for the shift include Pt will remain safe and comfortable during the shift [facility]07-03-2025 Plan of care note* Care Plan - Pari Rios RN - 08/15/2024 1:24 PM EDT The patient's goals for the shift include The clinical goals for the shift include safety and comfort [facility]07-03-2025 Evaluation + Plan note* Assessment & Plan Note - BILLY Jordan - 08/15/2024 9:01 AM EDTAssociated Problem(s): S/P right rotator cuff repair POD #1: patient admitted observation status s/p rotator cuff repair by medical service due to pulmonary issues. Has history of COPD. Does not normally use oxygen at home. [facility] Work Phone: 1(120) 938-519207-02-2025 Plan of care note* Care Plan - Pari Dias RN - 08/14/2024 11:00 PM EDT The patient's goals for the shift include The clinical goals for the shift include spo2 above 92% [facility]07-02-2025 Plan of care note* Care Plan - Pari Dias RN - 08/14/2024 11:00 PM EDT The patient's goals for the shift include The clinical goals for the shift include spo2 above 92% [facility] Work Phone: 1(196) 277-215007-02-2025 Consult note* Nilsa Freire DO - 08/14/2024 6:23 PM EDTAssociated Order(s): Inpatient consult to Medicine Inpatient consult to Medicine Consult performed by: Nilsa Freire DO Consult ordered by: Bright Escobedo DO Reason for consult: Medical management Reason For Consult Medical management s/p right rotator cuff repair History Of Present Illness Patient is a 69-year-old female with PMH of asthma/COPD, depression/anxiety, overactive bladder, hyperlipidemia who presents to [facility] for elective right rotator cuff repair. Patient successfully underwent repair but had difficulty maintaining oxygen saturation on room air while in PACU. Baseline pulmonary issues and interscalene block may have been a factor in this according to orthopedic surgery note. General medicine was consulted for medical management and patient to be kept overnight for further observation. Patient denies any complaints at this time Past Medical History As above Surgical History She has a past surgical history that includes Gallbladder surgery (11/11/2015); section, classic (11/11/2015); Cholecystectomy; section, low transverse (July 1975); and Colonoscopy. Social History Quit tobacco smoking over 30 years ago, no alcohol use or other drugs Family History Family History[1] Allergies Patient has no known allergies. All ROS reviewed and negative except above Physical Exam CONSTITUTIONAL - well nourished, well developed, looks like stated age, in no acute distress, not ill-appearing, and not tired appearing SKIN - normal skin color and pigmentation, normal skin turgor without rash, lesions, or nodules visualized HEAD - no trauma, normocephalic EYES - perrla, extraocular muscles are intact CHEST - clear to auscultation, no wheezing, no crackles and no rales, good effort CARDIAC - regular rate and regular rhythm, no skipped beats, no murmur ABDOMEN - soft, nontender, nondistended, normal bowel sounds, no guarding/rebound EXTREMITIES -s/p right rotator cuff repair, in bracing NEUROLOGICAL - alert, oriented and no focal signs PSYCHIATRIC - alert, pleasant and cordial, age-appropriate Last Recorded Vitals BP 108/55 (BP Location: Right arm) Pulse 54 Temp 35.5 C (95.9 F) (Temporal) Resp 18 Wt 85 kg (187 lb 6.3 oz) SpO2 96% Assessment/Plan Patient is a 69-year-old female with PMH of asthma/COPD, depression/anxiety, overactive bladder, hyperlipidemia who presents to [facility] for elective right rotator cuff repair. Acute Medical Conditions Right rotator cuff injury s/p right shoulder arthroscopic rotator cuff repair Acute hypoxic respiratory failure in the setting of above History of asthma - Wean oxygen as tolerated - Continue Breo Ellipta - As needed Tylenol and Tramadol for pain - Appreciate ortho recs - Regular diet Chronic Medical Conditions Depression/anxiety Overactive bladder Hyperlipidemia - Atorvastatin, bupropion, Celexa, gabapentin, scopolamine patch, aspirin DVT- lovenox Diet-regular Code Status-DNR CCA Consults Dr. Nilsa Freire Internal Medicine PGY-1 Available on Rain for any questions. This is a preliminary note pending signature from the attending physician. [1] Family History Problem Relation Name Age of Onset Diabetes Mother Darby Heart disease Mother Darby Hypertension Mother Darby Alcohol abuse Father R[place]g Diabetes Father [place] Alcohol abuse Brother Bryant Breast cancer Mother's Sister Cosigned by Bright Escobedo DO at 08/16/2024 5:26 PM EDT Associated attestation - Bright Escobedo DO - 08/16/2024 5:26 PM EDT Trainee role: Resident I saw and evaluated the patient. I personally obtained the bedoya and critical portions of the historyand physical exam or was physically present for bedoya and critical portions performed by the trainee.I reviewed the trainee's documentation and discussed the patient with the trainee. I agree with the trainee's medical decision making as documented on the trainee's notes. Post-op respiratory insufficiency. Monitor and attempt to wean off oxygen overnight. Bright Escobedo DO [facility] Work Phone: [phone] Consult note* Nilsa Freire DO - 08/14/2024 6:23 PM EDTAssociated Order(s): Inpatient consult to Medicine Inpatient consult to Medicine Consult performed by: Nilsa Freire DO Consult ordered by: Bright Escobedo DO Reason for consult: Medical management Reason For Consult Medical management s/p right rotator cuff repair History Of Present Illness Patient is a 69-year-old female with PMH of asthma/COPD, depression/anxiety, overactive bladder, hyperlipidemia who presents to [facility] for elective right rotator cuff repair. Patient successfully underwent repair but had difficulty maintaining oxygen saturation on room air while in PACU. Baseline pulmonary issues and interscalene block may have been a factor in this according to orthopedic surgery note. General medicine was consulted for medical management and patient to be kept overnight for further observation. Patient denies any complaints at this time Past Medical History As above Surgical History She has a past surgical history that includes Gallbladder surgery (11/11/2015); section, classic (11/11/2015); Cholecystectomy; section, low transverse (July 1975); and Colonoscopy. Social History Quit tobacco smoking over 30 years ago, no alcohol use or other drugs Family History Family History[1] Allergies Patient has no known allergies. All ROS reviewed and negative except above Physical Exam CONSTITUTIONAL - well nourished, well developed, looks like stated age, in no acute distress, not ill-appearing, and not tired appearing SKIN - normal skin color and pigmentation, normal skin turgor without rash, lesions, or nodules visualized HEAD - no trauma, normocephalic EYES - perrla, extraocular muscles are intact CHEST - clear to auscultation, no wheezing, no crackles and no rales, good effort CARDIAC - regular rate and regular rhythm, no skipped beats, no murmur ABDOMEN - soft, nontender, nondistended, normal bowel sounds, no guarding/rebound EXTREMITIES -s/p right rotator cuff repair, in bracing NEUROLOGICAL - alert, oriented and no focal signs PSYCHIATRIC - alert, pleasant and cordial, age-appropriate Last Recorded Vitals BP 108/55 (BP Location: Right arm) Pulse 54 Temp 35.5 C (95.9 F) (Temporal) Resp 18 Wt 85 kg (187 lb 6.3 oz) SpO2 96% Assessment/Plan Patient is a 69-year-old female with PMH of asthma/COPD, depression/anxiety, overactive bladder, hyperlipidemia who presents to [facility] for elective right rotator cuff repair. Acute Medical Conditions Right rotator cuff injury s/p right shoulder arthroscopic rotator cuff repair Acute hypoxic respiratory failure in the setting of above History of asthma - Wean oxygen as tolerated - Continue Breo Ellipta - As needed Tylenol and Tramadol for pain - Appreciate ortho recs - Regular diet Chronic Medical Conditions Depression/anxiety Overactive bladder Hyperlipidemia - Atorvastatin, bupropion, Celexa, gabapentin, scopolamine patch, aspirin DVT- lovenox Diet-regular Code Status-DNR CCA Consults Dr. Nilsa Freire Internal Medicine PGY-1 Available on [facility] for any questions. This is a preliminary note pending signature from the attending physician. [1] Family History Problem Relation Name Age of Onset Diabetes Mother Darby Heart disease Mother Darby Hypertension Mother Darby Alcohol abuse Father [place] Diabetes Father [place] Alcohol abuse Brother Bryant Breast cancer Mother's Sister Cosigned by Bright Escobedo DO at 08/16/2024 5:26 PM EDT Associated attestation - Bright Escobedo DO - 08/16/2024 5:26 PM EDT Trainee role: Resident I saw and evaluated the patient. I personally obtained the bedoya and critical portions of the historyand physical exam or was physically present for bedoya and critical portions performed by the trainee.I reviewed the trainee's documentation and discussed the patient with the trainee. I agree with the trainee's medical decision making as documented on the trainee's notes. Post-op respiratory insufficiency. Monitor and attempt to wean off oxygen overnight. Bright Escobedo DO [facility] Work Phone: [phone] Plan of care note* Care Plan - Pari Rios RN - 08/14/2024 6:07 PM EDT The patient's goals for the shift include The clinical goals for the shift include spo2 above 92% [facility] Work Phone: [phone] Plan of care note* Care Plan - Jordan Maher MD - 08/14/2024 5:17 PM EDT 69-year-old had uneventful right shoulder arthroscopic rotator cuff repair. She has had difficulty maintaining oxygen saturation on room air while in the PACU. She has baseline pulmonary issues and had a interscalene block and this is likely a contributing factor. Communication was done with Dr. Escobedo and the patient will be kept at least overnight for observation. T [facility] Work Phone: [phone] Surgery Surgical operation note* Op Note - Jordan Maher MD - 08/14/2024 10:32 AM EDT RIGHT SHOULDER ARTHROSCOPIC ROTATOR CUFF REPAIR (R), SUBACROMIAL DECOMPRESSION (R), DEBRIDEMENT (R)Operative Note Date: 08/14/2024 OR Location: [facility] OR Name: Kassandra Hankins, : 1955, Age: 69 y.o., , Sex: female Diagnosis Pre-op Diagnosis * Rotator cuff strain, right, initial encounter [S46.011A] Post-op Diagnosis * Rotator cuff strain, right, initial encounter [S46.011A], labral tear, chondromalacia, impingement Procedures Right shoulder arthroscopy with arthroscopic rotator cuff repair and extensive debridement and subacromial decompression Surgeons * Jordan Maher - Primary Resident/Fellow/Other Magazine Filler: Jorge Barton Staff: Substation Operator Conversion: Melisa Scrub Person: Isak Pan Devulcanizer: Lonnie Anesthesia Staff: Anesthesiologist (Solo in Case): Taras Knox MD Procedure Summary Anesthesia: Regional, General ASA: III Estimated Blood Loss: 5 mL Indications: 69-year-old with right shoulder rotator cuff tear. Treatment options clued no treatment reviewed and the decision was made proceed with surgery. Description procedure patient was brought in the operating room. General anesthesia was performed. Scalene block had been performed in the preoperative area. She was positioned in the lateral decubitus position prepped and draped in usual fashion. The joint injected with saline and a posterior thrust portal established. Arthroscopic examination of the joints performed. There was a full- thickness tear involving the entirety of the supraspinatus tendon. There was tearing involving the superior labrum anteriorly and posteriorly. There was grade II chondromalacia on the superior glenoid. Grade IIchondromalacia on the posterior humeral head. Subscapularis tendon was intact. The anterior-inferior and posterior inferior labrum were intact. No loose bodies inferior pouch. Anterior portal was established. The motorized shaver was introduced. With the motorized shaver debridement of the labrum was done to provide stable cartilage edge. Motorized shaver was used to perform chondroplasty of the glenoid. Motorized shaver was also used to perform chondroplasty involving the humeral head. The rotator cuff was debrided to healthier appearing tissue. There was partial articular sided tearing involving the superior aspect of the subscapularis tendon and this was debrided and the insertion was carefully visualized and was intact. The arthroscope was placed anteriorly and the motorized shaver was introduced to the posterior portal and additional labral debridement as well as chondroplasty along the posterior aspect the humeral head was done. The bicep tendon had a normal appearance. The arthroscope was placed in the subacromial space. There was extensive subacromial bursitis. A lateral portal was established. Using combination of the shaver and the radiofrequency wand subacromial bursectomy was performed. The CA ligament was released. Using the motorized bur acromioplasty was performeduntil there was adequate decompression of the subacromial space. There was a infraclavicular spur along the distal clavicle and using the motorized bur this was removed and the distal clavicle was coplaning. The rotator cuff was visualized from the bursal side and this was a full-thickness tear. With the motorized shaver the rotator cuff was debrided to healthier appearing tissue. Soft tissue wasdebrided from the greater tuberosity to create a bleeding surface. Through an accessory portal and A rthrex bio composite corkscrew anchor was placed. This had good purchase in the bone. The sutures were passed in a mattress type fashion through the rotator cuff and then tied down with arthroscopic knot tying. An additional margin convergence suture was placed posteriorly and then tied down with arthroscopic knot tying. The sutures were then secured to the lateral cortex of the humerus with an Arthrex swivel lock anchor to provide for modified double row fixation. Very secure fixation of the rotator cuff was obtained in this manner. The shoulder was well irrigated. Hemostasis obtained as needed. The instruments removed portals closed with nylon suture sterile dressing and a sling were appli ed and she tolerated procedure well and was taken to the recovery room in a stable condition. Intra-op Medications: Administrations occurring from 0930 to 1140 on 08/14/24: Medication Name Total Dose dexAMETHasone (Decadron) 4 mg/mL IV Syringe 2 mL 4 mg fentaNYL (Sublimaze) injection 50 mcg/mL 100 mcg LR infusion 169.94 mL lidocaine (cardiac) injection 2% prefilled syringe 100 mg ondansetron (Zofran) 2 mg/mL injection 4 mg propofol (Diprivan) injection 10 mg/mL 120 mg rocuronium (ZeMuron) 50 mg/5 mL injection 50 mg sugammadex (Bridion) 200 mg/2 mL injection 200 mg ceFAZolin (Ancef) 2 g in dextrose (iso) IV 50 mL 2 g Anesthesia Record Intraprocedure I/O Totals Intake LR infusion 400.00 mL Total Intake 400 mL Specimen: No specimens collected Implants: Implants Type Name Action Serial No. Screw ANCHOR, BIOCOMPOSITE CORKSCREW FT, 5.5 X 14.7MM, W/TWO 1.3 SUTURE TAPE - [id number] Implanted Screw ANCHOR, BIOCOMPOSITE SWIVELOCK 4.75 X 19.1 - [id number] Implanted Task Performed by INCLUSION INTERN or Pan Devulcanizer: Assistance was required due to the complexity of the procedure. No qualified resident was available. Assistance was required throughout the procedure for positioning of the arm, suture passage and management, anchor placement, positioning of the camera, knot-tying and wound closure. Attending Attestation: I performed the procedure. Jordan Maher [facility] Work Phone: [phone] Attending History and physical note* Jordan Maher MD - 08/14/2024 9:30 AM EDT H&P reviewed. The patient was examined and there are no changes to the H&P. Source Note - Bright Escobedo DO - 08/01/2024 10:00 AM EDT Subjective Patient ID: Kassandra Hankins is a 69 y.o. female who presents for Follow-up and MED CLEARANCE FOR SHOULDER SURGERY. [facility] Hankins is here for follow up visit and medical clearance for elective shoulder surgery. She is taking all of her medications as prescribed. Mood and energy have been much improved with resumption of wellbutrin. She had urologic procedure with Urology, much improved incontinence. Does get some slight stress incontinence at times and will be repeat the procedure in the fall. She is scheduled for rotator cuff repair with Dr. Maher on 08/14/24. She is physically active, sleeping well, weight and BP have been very stable. Review of Systems A 10 point review of systems is otherwise negative unless stated in the HPI. Objective Vitals: 08/01/24 1004 BP: 94/63 Physical Exam GEN: alert, conversant, NAD HEENT: PERRL, EOMI, MMM, Tms pearly hylton bilaterally NECK: supple, no LAD appreciated CHEST: CTAB CV: S1, S2, RRR, no murmurs appreciated ABD: soft, NT, ND EXT: no significant LE edema SKIN: warm, dry Assessment/Plan #right rotator cuff tear Scheduled for surgical repair on 08/14/24 RCRI: 0, patient is medically optimized to proceed with scheduled elective orthopedic procedure. #ILD #asthma/COPD Not current taking an prednisone - following with Pulmonology - Using Advair - Uses albuterol inhaler, infrequently #Depression/Anxiety improved - Offered referral for counseling/therapy services, patient agreeable - Maintained on stable dose of celexa for ~30 years - continue wellbutrin 150mg daily #fatigue, much improved - encouraged routine sleep/wake cycle - avoid multiple daytime naps and allow for 8 hours of sleep nightly #OAB #stress incontinence Off of detrol - Following with a urology specialist in [place], improved with procedure, plans for repeat in 09/2024. # Dyslipidemia Continue with current management without changes: atorvastatin 80mg daily Discussed healthy diet and lifestyle. Health Maintenance: Vaccines: COVID (UTD), Flu (UTD), Shingles (advised), Pneumonia (x1, advised prevnar) Screening: Colonoscopy (2023, repeat in 1 year), mammogram (05/2024) Labs: reviewed recent, none needed today. Obtain lipid panel at next visit RTC in 4 months, or sooner PRN Bright Escobedo DO [facility] Work Phone: [phone] History and physical note* Jordan Maher MD - 08/14/2024 9:30 AM EDT H&P reviewed. The patient was examined and there are no changes to the H&P. Source Note - Bright Escobedo, - 08/01/2024 10:00 AM EDT Subjective Patient ID: Kassandra Hankins is a 69 y.o. female who presents for Follow-up and MED CLEARANCE FOR SHOULDER SURGERY. [facility] Nhi is here for follow up visit and medical clearance for elective shoulder surgery. She is taking all of her medications as prescribed. Mood and energy have been much improved with resumption of wellbutrin. She had urologic procedure with Urology, much improved incontinence. Does get some slight stress incontinence at times and will be repeat the procedure in the fall. She is scheduled for rotator cuff repair with Dr. Maher on 08/14/24. She is physically active, sleeping well, weight and BP have been very stable. Review of Systems A 10 point review of systems is otherwise negative unless stated in the HPI. Objective Vitals: 08/01/24 1004 BP: 94/63 Physical Exam GEN: alert, conversant, NAD HEENT: PERRL, EOMI, MMM, Tms pearly hylton bilaterally NECK: supple, no LAD appreciated CHEST: CTAB CV: S1, S2, RRR, no murmurs appreciated ABD: soft, NT, ND EXT: no significant LE edema SKIN: warm, dry Assessment/Plan #right rotator cuff tear Scheduled for surgical repair on 08/14/24 RCRI: 0, patient is medically optimized to proceed with scheduled elective orthopedic procedure. #ILD #asthma/COPD Not current taking an prednisone - following with Pulmonology - Using Advair - Uses albuterol inhaler, infrequently #Depression/Anxiety improved - Offered referral for counseling/therapy services, patient agreeable - Maintained on stable dose of celexa for ~30 years - continue wellbutrin 150mg daily #fatigue, much improved - encouraged routine sleep/wake cycle - avoid multiple daytime naps and allow for 8 hours of sleep nightly #OAB #stress incontinence Off of detrol - Following with a urology specialist in [place], improved with procedure, plans for repeat in 09/2024. # Dyslipidemia Continue with current management without changes: atorvastatin 80mg daily Discussed healthy diet and lifestyle. Health Maintenance: Vaccines: COVID (UTD), Flu (UTD), Shingles (advised), Pneumonia (x1, advised prevnar) Screening: Colonoscopy (2023, repeat in 1 year), mammogram (05/2024) Labs: reviewed recent, none needed today. Obtain lipid panel at next visit RTC in 4 months, or sooner PRN Bright Escobedo DO documented in this [facility] Work Phone: [phone] History of Present illness Narrative* Bright Escobedo DO - 08/01/2024 10:00 AM EDT Subjective Patient ID: Kassandra Hankins is a 69 y.o. female who presents for Follow-up and MED CLEARANCE FOR SHOULDER SURGERY. [facility] Nhi is here for follow up visit and medical clearance for elective shoulder surgery. She is taking all of her medications as prescribed. Mood and energy have been much improved with resumption of wellbutrin. She had urologic procedure with Urology, much improved incontinence. Does get some slight stress incontinence at times and will be repeat the procedure in the fall. She is scheduled for rotator cuff repair with Dr. Maher on 08/14/24. She is physically active, sleeping well, weight and BP have been very stable. Review of Systems A 10 point review of systems is otherwise negative unless stated in the HPI. Objective Vitals: 08/01/24 1004 BP: 94/63 Physical Exam GEN: alert, conversant, NAD HEENT: PERRL, EOMI, MMM, Tms pearly hylton bilaterally NECK: supple, no LAD appreciated CHEST: CTAB CV: S1, S2, RRR, no murmurs appreciated ABD: soft, NT, ND EXT: no significant LE edema SKIN: warm, dry Assessment/Plan #right rotator cuff tear Scheduled for surgical repair on 08/14/24 RCRI: 0, patient is medically optimized to proceed with scheduled elective orthopedic procedure. #ILD #asthma/COPD Not current taking an prednisone - following with Pulmonology - Using Advair - Uses albuterol inhaler, infrequently #Depression/Anxiety improved - Offered referral for counseling/therapy services, patient agreeable - Maintained on stable dose of celexa for ~30 years - continue wellbutrin 150mg daily #fatigue, much improved - encouraged routine sleep/wake cycle - avoid multiple daytime naps and allow for 8 hours of sleep nightly #OAB #stress incontinence Off of detrol - Following with a urology specialist in [place], improved with procedure, plans for repeat in 09/2024. # Dyslipidemia Continue with current management without changes: atorvastatin 80mg daily Discussed healthy diet and lifestyle. Health Maintenance: Vaccines: COVID (UTD), Flu (UTD), Shingles (advised), Pneumonia (x1, advised prevnar) Screening: Colonoscopy (2023, repeat in 1 year), mammogram (05/2024) Labs: reviewed recent, none needed today. Obtain lipid panel at next visit RTC in 4 months, or sooner PRN Bright Escobedo DO [facility] Work Phone: [phone]) [phone] [facility] Medical Records Department [address] [place] [id number] History Physical Exam 07/18/24 1120 MR#: [id number] Acct: [id number] Name: KASSANDRA SMITH Rep #: [id number] : 1955 69 From: Jenny Correa MD PCP: BRIGHT ESCOBEDO Status:DEP [facility] Location: [facility] HPI - General HPI Narrative KASSANDRA SMITH, is a 69 F who presents for cystoscopy and Bulkamid injection for management of her intrinsic sphincter deficiency and stress urinary incontinence. Informed consent was [facility] Medical History (Updated 07/18/24 @ 11:[address] Jenny Correa MD) SHAQ (stress urinary incontinence, female) Intrinsic sphincter deficiency Post-menopausal Wears glasses Depression Former smoker Asthma Shortness of breath on exertion Home Medications ???Medication ???Instructions ???Recorded ???Last Taken ???Type albuterol sulfate 90 mcg/actuation 2 puff inhalation Q4H PRN PRN Unknown History aerosol inhaler wheezing aspirin 81 mg chewable tablet 1 tab PO DAILY 05/30/24 06/12/24 H istory (Ban Chewable Low Dose Aspirin) atorvastatin 80 mg tablet 80 mg PO DAILY 05/30/24 06/12/24 H istory budesonide-formoterol HFA 160 2 puff inhalation BID 05/30/2403/09 06:00 History mcg-4.5 mcg/actuation aerosol inhaler bupropion HCl 150 mg 24 hr tablet, 150 mg PO DAILY 05/30/24 5 History extended release citalopram 40 mg tablet 40 mg PO DAILY 05/30/24 06/12/24 H istory gabapentin 300 mg capsule 300 mg PO DAILY 05/30/24 06/12/24 History cephalexin 500 mg capsule 500 mg PO Q12 post-operative 3 03/09 Unknown Rx days #6 CAPSULES Allergy/AdvReac Type Severity Reaction Status Date / Time No Known Allergies Allergy Verified 06/13/24 08:11 Surgical History Hx of section Hx of cholecystectomy Hx of colonoscopy Social History Smoking Status: Former smoker ROS Constitutional Constitutional: Reports systems reviewed and no addt'l complaints, except as documented; Denies change in weight, chills, fatigue, fever(s) or weakness Eyes Eyes: Reports systems reviewed and no addt'l complaints, except as documented ENT HEENT: Reports systems reviewed and no addt'l complaints, except as documented Cardiovascular Cardiovascular: Denies chest pain, dizziness, dyspnea, lightheadedness, nausea, tachypnea or vomiting Respiratory/Chest Respiratory/Chest: Denies chest congestion, chest tightness or cough Gastrointestinal Gastrointestinal: Denies abdominal pain, change in bowel habits, nausea or vomiting Genitourinary Genitourinary: Reports urinary incontinence; Denies anuria, hematuria, urinary frequency or urinary urgency Musculoskeletal Musculoskeletal: Reports systems reviewed and no addt'l complaints, except as documented; Denies difficulty walking, muscle weakness or numbness Integumentary Integumentary: Reports systems reviewed and no addt'l complaints, except as documented Neurologic Neurologic: Reports systems reviewed and no addt'l complaints, except as documented Psychiatric Psychiatric: Reports systems reviewed and no addt'l complaints, except as documented Endocrine Endocrinology: Reports systems reviewed and no addt'l complaints, except as documented Hematologic/Lymphatic Hematologic/Lymphatic: Reports systems reviewed and no addt'l complaints, except as documented Allergic/Immunologic Allergic/Immunologic: Reports systems reviewed and no addt'l complaints, except as documented Vital Signs Vital Signs Vital Signs: Weight Weight: 83.915 kg Body Mass Index (BMI) 29.0 Physical Exam Const alert, oriented x3 and no apparent distress General Appearance: cooperative, comfortable, well kempt and well developed HEENT normocephalic, head/scalp atraumatic, hearing grossly normal bilaterally, external ears normal, external nose normal and moist oral mucous membranes Eyes General Eye: normal appearance of both eyes Neck supple General: trachea midline Lymph Lymphatic: no lymphedema noted Chest inspection of chest normal Chest: symmetrical chest wall rise Resp normal respiratory effort, normal air movement and no retractions Effort and Inspection: able to speak in complete sentences and symmetric chest movement Cardio regular rate and regular rhythm GI soft to palpation, non-tender and non-distended no CVA tenderness and external exam normal Back/Spine no CVA tenderness Extremity normal to inspection Skin no rashes or lesions noted, no jaundice, no petechiae and no mottling Neuro oriented x3, CN's II-XII intact bilaterally and moves all extremities Psych mental status grossly normal, thought process normal and cooperative A (more content not included)...[facility]05-20-2025 History of Present illness Narrative* Jordan Maher MD - 07/02/2024 10:15 AM EDT 69-year-old is seen with right shoulder pain. She was walking her dog and fell on cement in December 2023. She has been having persistent moderate throbbing pain and difficulty with overhead reachingand lifting activities. She had cortisone injection without significant improvement. 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 Pleasant and no acute distress. Right shoulder forward flexion 140 . No effusion or instability. There is positive Neer and Moseley impingement. There is subacromial crepitus and tenderness around the subacromial space. There is biceps tenderness. There is a positive Pima's test. No acromioclavicular tenderness. Rotator cuff strength is decreased and there is discomfort with strength testing. Left shoulder forward flexion 180 . No effusion or instability. No impingement or crepitus or tenderness involving the subacromial space. No biceps or acromioclavicular tenderness. There is intact rotator cuff strength. There is adequate range of motion of the cervical spine without pain. Both upperextremities are well perfused, skin is intact and muscle tone is adequate. Elbow flexion and extension and wrist flexion and extension strength are intact. Multiple x-ray views of the right shoulder are personally reviewed and there is no acute bony abnormality. There are degenerative changes with subchondral sclerosis and small marginal osteophytes inferiorly. MRI of the right shoulder is personally reviewed and there is full-thickness tear involving the supraspinatus tendon. There is partial articular sided tearing involving the infraspinatus tendon. There is partial articular sided tearing involving the upper subscapularis tendon. There is glenohumeralchondral change and tearing involving the labrum. A detailed discussion about the rotator cuff tear was done. Treatment options including no treatment reviewed and the decision was made to proceed with a right shoulder arthroscopy with rotator cuff repair and extensive debridement and subacromial decompression. Surgery and postoperative course were discussed in detail. Risks include not limited to infection thromboembolus neurovascular joint medical problems stiffness and realistic expectations with arthroscopy were discussed and she understands this and has elected to proceed. documented in this [facility] Work Phone: [phone]) 400-848605-01-2025 Evaluation note* Diagnosis Onset Date Resolution Status Admit Date Intrinsic sphincter deficiency acute June 13, 2024 7:48am SHAQ (stress urinary incontinence, female) acute June 13 025 7:48am Constipation acute September 20, 2024 10:04am Intrinsic sphincter deficiency acute September 20, 2024 10:04am Overactive bladder acute September 20, 2024 10:04am SHAQ (stress urinary incontinence, female) acute September 10:04am Vaginal atrophy acute September 10:04am [facility] Work Phone: [phone] 255-852604-28-2025 History of Present illness Narrative* Debra Mejia APRN-DETAIL SERGEANT - 06/10/2024 11:40 AM EDT Subjective Patient ID: Nhi Smith is a 69 y.o. female. Chief Complaint: Follow-up of the Right Shoulder HPI This is a pleasant 69-year-old [id number] female presenting to the office for follow-up inregards to a right shoulder injury, which was sustained in December 2023. She was walking her dogs on a leash with her right hand when her dogs took off causing her to fall directly onto her right shoulder. She was evaluated at the [facility] after the fall where multiple view x- rays of the right shoulder were obtained without evidence of acute fracture dislocation but did show mild glenohumeral arthritis. I followed up with patient in January 2024, when we decided to proceed withconservative treatment of physical therapy and a cortisone injection. Patient states that cortisone injection and physical therapy over the last 8 to 12 weeks have been of minimal benefit. She continues to complain of right shoulder pain, limited range of motion and weakness. Pain is affecting her activities daily living including overhead reaching, heavy lifting and reaching behind her back. Shecontinues to deny numbness and paresthesia of right upper extremity. She has been taking gabapentin, Tylenol and ibuprofen with minimal relief of symptoms. She is retired. The patient's past medical, surgical, family, and social history as well as allergies and medications were reviewed and updated in the chart. Objective Ortho Exam Pleasant and no acute distress. Right shoulder normal appearance, no overlying skin changes, no muscle atrophy. Right shoulder forward flexion 120 . No effusion or instability. There is positive Neerand Moseley impingement. There is subacromial crepitus and tenderness around the subacromial space.No biceps tenderness. Minimal acromioclavicular tenderness. Rotator cuff strength is decreased and there is discomfort with strength testing. Plus 4 out of 5 strength with resisted forward flexion and external rotation. Plus 5 out of 5 strength with resisted internal rotation. Left shoulder forwardflexion 180 . No effusion or instability. No impingement or crepitus or tenderness involving the subacromial space. No biceps or acromioclavicular tenderness. There is intact rotator cuff strength. There is adequate range of motion of the cervical spine without pain. Both upper extremities are wellperfused, skin is intact and muscle tone is adequate. Elbow flexion and extension and wrist flexionand extension strength are intact. Sensation intact to light touch. Image Results: Multiple view x-rays of the right shoulder obtained January 02, 2024 personally reviewed, with evidence of mild degenerative changes noted of the glenohumeral and acromioclavicular joint spaces. No evidence of fracture or dislocation. Assessment/Plan Encounter Diagnoses: Acute pain of right shoulder, concern for right shoulder rotator cuff tear due to a fall directly onto her right shoulder in December 2023, failed conservative treatment options. Plan: Discussion with patient in regards to continued right shoulder pain with review of previous x-rays. As patient has performed 8 to 12 weeks of conservative treatment including physical therapy, cortisone injection, topical creams, NSAIDs and Tylenol without relief, it is my advice that we proceed with an MRI of the right shoulder. MRI would be used to assess integrity of the rotator cuff. MRI would be used for presurgical planning. Preferable to be done at a facility with a 1.5 Haley magnet for presurgical planning. She is aware she may need follow-up with an orthopedic surgeon to discuss possible surgical intervention. In the meantime, patient will avoid aggravating activities and can continue with conservative treatment options. I have prescribed her meloxicam 15 mg p.o. daily to help with pain and inflammation. She should not take other NSAIDs while on meloxicam but consistent with Tylenol and ice application. I will follow-up with patient once MRI results are complete for further treatment options. Orders Placed This Encounter MR shoulder right wo IV contrast meloxicam (Mobic) 15 mg tablet No follow-ups on file. [facility] Work Phone: [phone]) 909-998904-18-2025 History of Present illness Narrative* Bright Escobedo, - 05/31/2024 2:30 PM EDT Subjective Patient ID: Kassandra Hankins is a 69 y.o. female who presents for Medicare Annual Wellness Visit Subsequent (Medicare wellness; no concerns/). [facility] Nhi is here for medicare wellness visit/follow up visit. Mood continues to be lower. No significant support system right now. Sleeping okay at night, ~6-8 hours nightly. Appetite is okay. No SI/HI. Nayeli is important to her, has not been established with [facility]. Taking medications as prescribed, was told by her pharmacy that wellbutrin and gabapentin refills were declined, so she has been out of these medications. Questionnaires reviewed, history reviewed. Review of Systems A 10 point review of systems is otherwise negative unless stated in the HPI. Objective Vitals: 05/31/24 1419 BP: 127/66 Pulse: 92 Physical Exam GEN: alert, conversant, NAD HEENT: PERRL, EOMI, MMM, Tms pearly hylton bilaterally NECK: supple, no LAD appreciated CHEST: CTAB CV: S1, S2, RRR, no murmurs appreciated ABD: soft, NT, ND EXT: no significant LE edema SKIN: warm, dry Assessment/Plan #well adult/medicare wellness visit - Counseled continued efforts on healthy lifestyle modification including balanced diet, and continued exercise for >5 minutes - counseled age appropriate vaccines and preventative measures - ACP reviewed, HCPOA confirmed #right shoulder pain, acute on chronic Limitation in ROM concerning for possible rotator cuff injury Xray reviewed Saw ortho for cortisone injection #ILD #asthma/COPD Not current taking an prednisone - following with Pulmonology - Using symbicort - Uses albuterol inhaler 4-5 times weekly. #Depression/Anxiety Mood is lower - Offered referral for counseling/therapy services, patient agreeable - Maintained on stable dose of celexa for ~30 years - Resume wellbutrin 150mg daily #fatigue, much improved - encouraged routine sleep/wake cycle - avoid multiple daytime naps and allow for 8 hours of sleep nightly #OAB #stress incontinence Off of detrol - Following with a urology specialist in [place] # Dyslipidemia Continue with current management without changes: atorvastatin 80mg daily Discussed healthy diet and lifestyle. Health Maintenance: Vaccines: COVID (UTD), Flu (UTD), Shingles (advised), Pneumonia (x1, advised prevnar) Screening: Colonoscopy (2023, repeat in 1 year), mammogram (ordered) Labs: reviewed recent. Cbc, bmp requested for upcoming urology procedure RTC in 3 months, or sooner PRN Bright Escobedo DO documented in this [facility] Work Phone: [phone]) 320-364604-18-2025 Instructions* Patient Instructions* Bright Escobedo DO - 05/31/2024 2:30 PM EDT Go to [employer] Type in Zip code. Look for therapist/counselor who specializes in CBT. documented in this [facility] Work Phone: 1([phone] 193-328904-02-2025 Telephone encounter Note* Telephone Encounter - Ivan Talavera PA-C - 05/15/2024 1:15 PM EDT Disregard. Addressed in previous encounter [facility]04-02-2025 Miscellaneous Notes* Telephone Encounter - Ivan Talavera PA-C - 05/15/2024 1:15 PM EDT Disregard. Addressed in previous encounter * Addendum Note - Ivan Talavera PA-C - 05/15/2024 12:57 PM EDTAddended by: IVAN TALAVERA on: 05/15/2024 12:57 PM Modules accepted: Orders * Telephone Encounter - Ivan Talavera PA-C - 05/15/2024 12:56 PM EDT Please let her know I changed michael to breo per her insurance request * Telephone Encounter - María Linda HUC - 05/15/2024 12:34 PM EDT Images from the original note were not included. documented in this encounterUniversity [facility] Telephone encounter Note * Telephone Encounter - Ivan Talavera PA-C - 05/15/2024 1:14 PM EDT signed [facility]04-02-2025 Miscellaneous Notes* Telephone Encounter - Ivan Talavera PA-C - 05/15/2024 1:14 PM EDT signed * Telephone Encounter - Kimberly Martins, KATERINA - 05/15/2024 12:41 PM EDT DARLENE today with Ivan NOV 08/19/2024 Patient stated that called insurance and the alternatives were still too expensive She asked to have sent to [facility] Pended script ordered today by Ivan and updated pharmacy * Telephone Encounter - Abdiel Strickland - 05/15/2024 11:58 AM EDT Patient called in wanted to let the provider know that she checked with her insurance and its to much for the patient to pay,but she was able to find out that [facility] can cover it for a cheaper bender, patient asking that it be sent to [facility], [place], [place] [phone] documented in this encounterUniversity [facility]04-[facility] Note* Addendum Note - Ivan Talavera PA-C - 05/15/2024 12:57 PM EDTAddended by: IVAN TALAVERA on: 05/15/2024 12:57 PM Modules accepted: Orders [facility]04-02-2025 Telephone encounter Note* Telephone Encounter - Ivan Talavera PA-C - 05/15/2024 12:56 PM EDT Please let her know I changed advair to breo per her insurance request [facility]04-02-2025 Telephone encounter Note* Telephone Encounter - Kimberly Martins, KATERINA - 05/15/2024 12:41 PM EDT DARLENE today with Ivan NOV 08/19/2024 Patient stated that called insurance and the alternatives were still too expensive She asked to have sent to [facility] Pended script ordered today by Ivan and updated pharmacy [facility]04-02-2025 Telephone encounter Note* Telephone Encounter - María Linda HUC - 05/15/2024 12:34 PM EDT Images from the original note were not included. [facility]04-02-2025 Telephone encounter Note* Telephone Encounter - Abdiel Strickland - 05/15/2024 11:58 AM EDT Patient called in wanted to let the provider know that she checked with her insurance and its to much for the patient to pay,but she was able to find out that [facility] can cover it for a cheaper bender, patient asking that it be sent to [facility] [address], [place] [address] [phone] [facility]04-02-2025 Instructions* Patient Instructions* Ivan Talavera PA-C - 05/15/2024 11:07 AM EDT Your breathing tests are slightly down today. I suspect due to no use of inhaler the last few months. We are going to restart an inhaler. I sent in Symbicort to use 2 puffs, two times a day. If stilltoo expensive, you'll need to ask insurance, which of the following inhalers are covered/more affordable. Follow up in 3 months, but contact us sooner if symptoms are not improving Combined ICS/LABA: Symbicort Breo Dulera (disk and HFA) Wixela AirDuo Breyna documented in this encounterUniversity [facility]als [facility]04-02-2025 NoteHNO ID: [id number] Author: IVAN TALAVERA PA-C Service: ? Author Type: [employer] Filler Type: Progress Notes Filed: 05/15/2024 13:25 Note Text: . Pulmonary Clinic Follow-up Note Patient Name: Kassandra Smith PRIMARY CARE PHYSICIAN: Marcela Buchanan MD Date of visit: May 15, 2024 COMMUNICATION WILL BE SENT VIA SHARED MEDICAL RECORDS OR US MAIL. Subjective: Kassandra Smith is a 69 year old year old female who presents for follow-up of hypersensitivity pneumonitis, last seen in the office by me 02/12/24. At that time, was doing very well from a pulmonary standpoint. Decreased advair from 2 puffs twice daily to 1 puff twice daily. No worsening symptoms. Denied cough Since seeing us last, stopped using the advair. States can't afford it, states $140/month. Her insurance changed at the beginning of the year. Hasn't used it in about 3-4 months. Can tell worsening SOB. Still not really having cough. MEDICATIONS: ADVAIR HFA 230-21 mcg/actuation inhaler INHALE 2 PUFFS BY MOUTH TWICE DAILY DIRECTED buPROPion SR (WELLBUTRIN SR) 150 mg 12 hr tablet Take 150 mg by mouth once daily. tacrolimus (PROTOPIC) 0.1 % ointment APPLY TO AFFECTED TWICE DAILY X 14 DAYS, STOP FOR 1 WEEK AND RESUME IF NEEDED atorvastatin (LIPITOR) 80 mg tablet Take 1 tablet by mouth daily at bedtime. albuterol HFA (PROVENTIL HFA, VENTOLIN HFA) 90 mcg/actuation inhaler Inhale 1 Puff as instructed every 4 hours as needed for wheezing/shortness of breath. 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 albuterol (PROVENTIL) 2.5 mg /3 mL (0.083 %) nebulizer solution Use 3 mL via nebulizer every 4 hours as needed for wheezing/shortness of breath. citalopram (CELEXA) 40 mg tablet Take 40 mg by mouth once daily. calcium carbonate (CALTRATE) 600 mg calcium (1,500 mg) tab Take 1,200 mg by mouth once daily. Vit A,C and D-Cbgpwy-Kkjjbory (OCUVITE) 300 mcg-200 mg-27 mg-2 mg tab Take 1 tablet by mouth once daily. aspirin, enteric coated (ASPIRIN, ENTERIC COATED) 81 mg EC tablet Take 81 mg by mouth once daily. budesonide-formoterol (SYMBICORT) 160-4.5 mcg/actuation inhaler Inhale 2 Puffs as instructed two times a day. fluticasone furoate-vilanterol (BREO ELLIPTA) 50-25 mcg/dose inhaler Inhale 1 Inhalation as instructed once daily. tolterodine ER (DETROL LA) 2 mg 24 hr capsule Take 2 mg by mouth. tolterodine (DETROL) 2 mg tablet Take 2 mg by mouth once daily. albuterol HFA (PROVENTIL HFA, VENTOLIN HFA) 90 mcg/actuation inhaler Inhale 2 Puffs as instructed every 4 hours as needed for wheezing/shortness of breath. fluticasone-salmeterol (ADVAIR DISKUS) 500-50 mcg/dose dsdv Inhale 1 Puff as instructed two times a day. pantoprazole DR (PROTONIX) 40 mg tablet Take 1 tablet by mouth daily at 6 am. oxybutynin (DITROPAN) 5 mg tablet Take 5 mg by mouth twice daily. Allergies: Patient has no known allergies. ROS: Pertinent positives and negatives are listed in the HPI, all other systems were reviewed and found to be negative. PHYSICAL EXAM: BP 128/65 (BP Site: Left Arm, BP Position: Sitting, BP Cuff Size: Regular Adult) Pulse 79 Resp 14 SpO2 91% General- nad, comfortable Eyes- eomi ENT- mmm, oropharynx clear, CV- RRR Resp- clear to auscultation bilaterally, no wheezes or crackles, breathing nonlabored Ext- no clubbing, cyanosis, or edema Neuro- normal gait, no focal deficits Psych- appropriate mood and affect Labs / Imaging / Diagnostic Studies: Reviewed spirometry from today. No obstruction. Fev1 66% , down from 72% from 6 months ago DLCO normal 73%, down from 81% 6 months ago Assessment: Hypersensitivity pneumonitis-confirmed on bronchoscopy 02/2023. Was on systemic steroids for several months and weaned off altogether in July 2023. Symptoms remain stable off prednisone. She no longer works at the [employer]. Stopped advair 3-4 months ago due to insurance barriers. Meghan and DLCO slightly down today with some increased SOB. Cough is still absent Possible component of diastolic heart failure with slightly elevated left ventricular filling pressures -was on low dose lasix, has not noticed a big difference since stopping Smoking history, 9 pack years, quit at age 31 Hyperlipidemia 15 pet birds for 3 years Physical deconditioning Plan: Will send in new ICS/LABA. She was given list of inhalers to ask insurance which are covered in case symbicort is not covered Follow up in 3 months with repeat meghan and DLCO I spent a total of 28 minutes on the date of the service which included preparing to see the patient, [id number] patient care, completing clinical documentation, obtaining and/or reviewing separately obtained history, performing a medically appropriate examination, counseling and educating the patient/family/caregiver, ordering medications, tests, or procedures (more content not included)...[facility]04-02-2025 History of Present illness Narrative* Ivan Talavera PA-C - 05/15/2024 10:54 AM EDT Images from the original note were not included. . Pulmonary Clinic Follow-up Note Patient Name: Kassandra Smith PRIMARY CARE PHYSICIAN: Marcela Buchanan MD Date of visit: May 15, 2024 COMMUNICATION WILL BE SENT VIA SHARED MEDICAL RECORDS OR US MAIL. Subjective: Kassandra Smith is a 69 year old year old female who presents for follow-up of hypersensitivity pneumonitis, last seen in the office by me 02/12/24. At that time, was doing very well from a pulmonary standpoint. Decreased advair from 2 puffs twice daily to 1 puff twice daily. No worsening symptoms. Denied cough Since seeing us last, stopped using the advair. States can't afford it, states $140/month. Her insurance changed at the beginning of the year. Hasn't used it in about 3-4 months. Can tell worsening SOB. Still not really having cough. MEDICATIONS: ADVAIR HFA 230-21 mcg/actuation inhaler INHALE 2 PUFFS BY MOUTH TWICE DAILY DIRECTED buPROPion SR (WELLBUTRIN SR) 150 mg 12 hr tablet Take 150 mg by mouth once daily. tacrolimus (PROTOPIC) 0.1 % ointment APPLY TO AFFECTED TWICE DAILY X 14 DAYS, STOP FOR 1 WEEK AND RESUME IF NEEDED atorvastatin (LIPITOR) 80 mg tablet Take 1 tablet by mouth daily at bedtime. albuterol HFA (PROVENTIL HFA, VENTOLIN HFA) 90 mcg/actuation inhaler Inhale 1 Puff as instructed every 4 hours as needed for wheezing/shortness of breath. 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 albuterol (PROVENTIL) 2.5 mg /3 mL (0.083 %) nebulizer solution Use 3 mL via nebulizer every 4 hours as needed for wheezing/shortness of breath. citalopram (CELEXA) 40 mg tablet Take 40 mg by mouth once daily. calcium carbonate (CALTRATE) 600 mg calcium (1,500 mg) tab Take 1,200 mg by mouth once daily. Vit A,C and A-Wuvjdk-Padozass (OCUVITE) 300 mcg-200 mg-27 mg-2 mg tab Take 1 tablet by mouth once daily. aspirin, enteric coated (ASPIRIN, ENTERIC COATED) 81 mg EC tablet Take 81 mg by mouth once daily. budesonide-formoterol (SYMBICORT) 160-4.5 mcg/actuation inhaler Inhale 2 Puffs as instructed two times a day. fluticasone furoate-vilanterol (BREO ELLIPTA) 50-25 mcg/dose inhaler Inhale 1 Inhalation as instructed once daily. tolterodine ER (DETROL LA) 2 mg 24 hr capsule Take 2 mg by mouth. tolterodine (DETROL) 2 mg tablet Take 2 mg by mouth once daily. albuterol HFA (PROVENTIL HFA, VENTOLIN HFA) 90 mcg/actuation inhaler Inhale 2 Puffs as instructed every 4 hours as needed for wheezing/shortness of breath. fluticasone-salmeterol (ADVAIR DISKUS) 500-50 mcg/dose dsdv Inhale 1 Puff as instructed two times aday. pantoprazole DR (PROTONIX) 40 mg tablet Take 1 tablet by mouth daily at 6 am. oxybutynin (DITROPAN) 5 mg tablet Take 5 mg by mouth twice daily. Allergies: Patient has no known allergies. ROS: Pertinent positives and negatives are listed in the HPI, all other systems were reviewed and found to be negative. PHYSICAL EXAM: BP 128/65 (BP Site: Left Arm, BP Position: Sitting, BP Cuff Size: Regular Adult) Pulse 79 Resp 14 SpO2 91% General- nad, comfortable Eyes- eomi ENT- mmm, oropharynx clear, CV- RRR Resp- clear to auscultation bilaterally, no wheezes or crackles, breathing nonlabored Ext- no clubbing, cyanosis, or edema Neuro- normal gait, no focal deficits Psych- appropriate mood and affect Labs / Imaging / Diagnostic Studies: Reviewed spirometry from today. No obstruction. Fev1 66% , down from 72% from 6 months ago DLCO normal 73%, down from 81% 6 months ago Assessment: Hypersensitivity pneumonitis-confirmed on bronchoscopy 02/2023. Was on systemic steroids for severalmonths and weaned off altogether in July 2023. Symptoms remain stable off prednisone. She no longerworks at the [employer]. Stopped advair 3-4 months ago due to insurance barriers. Meghan and DLCO slightly down today with some increased SOB. Cough is still absent Possible component of diastolic heart failure with slightly elevated left ventricular filling pressures -was on low dose lasix, has not noticed a big difference since stopping Smoking history, 9 pack years, quit at age 31 Hyperlipidemia 15 pet birds for 3 years Physical deconditioning Plan: Will send in new ICS/LABA. She was given list of inhalers to ask insurance which are covered in case symbicort is not covered Follow up in 3 months with repeat meghan and DLCO I spent a total of 28 minutes on the date of the service which included preparing to see the patient, [id number] patient care, completing clinical documentation, obtaining and/or reviewing separately obtained history, performing a medically appropriate examination, counseling and educating the pat ient/family/caregiver, ordering medications, tests, or procedures, independently interpreting results (not separately reported), and communicating results to the patient/family/caregiver. Ivan Talavera PA-C May 15, 2024 1:24 PM documented in this encounterUniversity [facility] Telephone encounter Note * Telephone Encounter - Carmelo Arizmendi MA - 02/12/2024 11:05 AM EST Discontinuation order faxed [facility]12-30-2024 Miscellaneous Notes* Telephone Encounter - Carmelo Arizmendi MA - 02/12/2024 11:05 AM EST Discontinuation order faxed * Telephone Encounter - Ivan Talavera PA-C - 02/12/2024 10:51 AM EST Can we please fax discontinuation oxygen order to [phone]. Patient not sure oxygen supplier documented in this encounterUniversity [facility]als [facility]12-[facility]-2024 Telephone encounter Note * Telephone Encounter - Ivan Talavera PA-C - 02/12/2024 10:51 AM EST Can we please fax discontinuation oxygen order to [phone]. Patient not sure oxygen supplier [facility]12-30-2024 NoteHNO ID: [id number] Author: IVAN TALAVERA PA-C Service: ? Author Type: Physician Magazine Filler Type: Progress Notes Filed: 02/12/2024 10:50 Note Text: . Pulmonary Clinic Follow-up Note Patient Name: Kassandra Smith PRIMARY CARE PHYSICIAN: Marcela Buchanan MD Date of visit: February 12, 2024 COMMUNICATION WILL BE SENT VIA SHARED MEDICAL RECORDS OR US MAIL. Subjective: Kassandra Smith is a 68 year old year old female who presents for follow-up of hypoxia after R anterior rib fractures, last seen in the office 01/08/24 At that time, was being seen after hospitalization. Was wearing 4L of oxygen at that time. Plan was to repeat ambulatory oximetry in a few weeks or so Since seeing us last, doing really well from a pulmonary standpoint. Pain from rib fractures improved. Sob has improved. Hasn't been using oxygen for a couple weeks with no worsening symptoms. Has even decreased advair from 2 puffs twice daily to 1 puff twice daily. Now rosenigns ymptoms with this. Not really having cough either. MEDICATIONS: tolterodine ER (DETROL LA) 2 mg 24 hr capsule Take 2 mg by mouth. ADVAIR HFA 230-21 mcg/actuation inhaler INHALE 2 PUFFS BY MOUTH TWICE DAILY DIRECTED tolterodine (DETROL) 2 mg tablet Take 2 mg by mouth once daily. buPROPion SR (WELLBUTRIN SR) 150 mg 12 hr tablet Take 150 mg by mouth once daily. albuterol HFA (PROVENTIL HFA, VENTOLIN HFA) 90 mcg/actuation inhaler Inhale 2 Puffs as instructed every 4 hours as needed for wheezing/shortness of breath. fluticasone-salmeterol (ADVAIR DISKUS) 500-50 mcg/dose dsdv Inhale 1 Puff as instructed two times a day. pantoprazole DR (PROTONIX) 40 mg tablet Take 1 tablet by mouth daily at 6 am. tacrolimus (PROTOPIC) 0.1 % ointment APPLY TO AFFECTED TWICE DAILY X 14 DAYS, STOP FOR 1 WEEK AND RESUME IF NEEDED atorvastatin (LIPITOR) 80 mg tablet Take 1 tablet by mouth daily at bedtime. albuterol HFA (PROVENTIL HFA, VENTOLIN HFA) 90 mcg/actuation inhaler Inhale 1 Puff as instructed every 4 hours as needed for wheezing/shortness of breath. 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 albuterol (PROVENTIL) 2.5 mg /3 mL (0.083 %) nebulizer solution Use 3 mL via nebulizer every 4 hours as needed for wheezing/shortness of breath. citalopram (CELEXA) 40 mg tablet Take 40 mg by mouth once daily. oxybutynin (DITROPAN) 5 mg tablet Take 5 mg by mouth twice daily. calcium carbonate (CALTRATE) 600 mg calcium (1,500 mg) tab Take 1,200 mg by mouth once daily. Vit A,C and L-Quckhf-Rkpvjbhl (OCUVITE) 300 mcg-200 mg-27 mg-2 mg tab Take 1 tablet by mouth once daily. aspirin, enteric coated (ASPIRIN, ENTERIC COATED) 81 mg EC tablet Take 81 mg by mouth once daily. Allergies: Patient has no known allergies. ROS: Pertinent positives and negatives are listed in the HPI, all other systems were reviewed and found to be negative. PHYSICAL EXAM: BP 112/68 (BP Site: Right Arm, BP Position: Sitting, BP Cuff Size: Regular Adult) Pulse 79 Ht 170.2 cm (5' 7) Wt 89.8 kg (198 lb) SpO2 94% BMI 31.01 kg/m? General- nad, comfortable Eyes- eomi ENT- mmm, oropharynx clear, CV- RRR Resp- crackles at bases Neuro- normal gait, no focal deficits Psych- appropriate mood and affect Labs / Imaging / Diagnostic Studies: Oximetry with Ambulation Test for This Encounter O2 Device O2 Adapter NC O2 Flow SpO2% HR Activity Ft Walked (ft) Time (min) Avg Speed (MPH) R/A 94 88 Resting R/A 93 100 Walking, usual pace 500 3 1.89 R/A 96 86 Resting R/A 91 107 Walking, fastest pace 635 Assessment: R anterior rib fractures- 5th and 6th ribs- after a fall on 12/30/23 Hypoxia- was requiring 4 L oxygen in the hospital- back to baseline now Hypersensitivity pneumonitis-confirmed on bronchoscopy 02/2023. Was on systemic steroids for several months and weaned off altogether in July 2023. Symptoms remain stable off prednisone. She no longer works at the [employer]. Possible component of diastolic heart failure with slightly elevated left ventricular filling pressures -was on low dose lasix, has not noticed a big difference since stopping Smoking history, 9 pack years, quit at age 31 Hyperlipidemia 15 pet birds for 3 years Physical deconditioning Plan: Will fax oxygen discontinuation order to her oxygen supply company She will keep appointment in April as scheduled with Dr. Mckeon with meghan and [employer] Ivan Talavera PA-C February 12, 2024 10:49 [facility]12-30-2024 History of Present illness Narrative* Ivan Talavera PA-C - 02/12/2024 10:34 AM EST Images from the original note were not included. . Pulmonary Clinic Follow-up Note Patient Name: Kassandra Smith PRIMARY CARE PHYSICIAN: Marcela Buchanan MD Date of visit: February 12, 2024 COMMUNICATION WILL BE SENT VIA SHARED MEDICAL RECORDS OR US MAIL. Subjective: Kassandra Smith is a 68 year old year old female who presents for follow-up of hypoxia after R anterior rib fractures, last seen in the office 01/08/24 At that time, was being seen after hospitalization. Was wearing 4L of oxygen at that time. Plan wasto repeat ambulatory oximetry in a few weeks or so Since seeing us last, doing really well from a pulmonary standpoint. Pain from rib fractures improved. Sob has improved. Hasn't been using oxygen for a couple weeks with no worsening symptoms. Has even decreased advair from 2 puffs twice daily to 1 puff twice daily. Now rosenigns ymptoms with this. Not really having cough either. MEDICATIONS: tolterodine ER (DETROL LA) 2 mg 24 hr capsule Take 2 mg by mouth. ADVAIR HFA 230-21 mcg/actuation inhaler INHALE 2 PUFFS BY MOUTH TWICE DAILY DIRECTED tolterodine (DETROL) 2 mg tablet Take 2 mg by mouth once daily. buPROPion SR (WELLBUTRIN SR) 150 mg 12 hr tablet Take 150 mg by mouth once daily. albuterol HFA (PROVENTIL HFA, VENTOLIN HFA) 90 mcg/actuation inhaler Inhale 2 Puffs as instructed every 4 hours as needed for wheezing/shortness of breath. fluticasone-salmeterol (ADVAIR DISKUS) 500-50 mcg/dose dsdv Inhale 1 Puff as instructed two times aday. pantoprazole DR (PROTONIX) 40 mg tablet Take 1 tablet by mouth daily at 6 am. tacrolimus (PROTOPIC) 0.1 % ointment APPLY TO AFFECTED TWICE DAILY X 14 DAYS, STOP FOR 1 WEEK AND RESUME IF NEEDED atorvastatin (LIPITOR) 80 mg tablet Take 1 tablet by mouth daily at bedtime. albuterol HFA (PROVENTIL HFA, VENTOLIN HFA) 90 mcg/actuation inhaler Inhale 1 Puff as instructed every 4 hours as needed for wheezing/shortness of breath. 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 albuterol (PROVENTIL) 2.5 mg /3 mL (0.083 %) nebulizer solution Use 3 mL via nebulizer every 4 hours as needed for wheezing/shortness of breath. citalopram (CELEXA) 40 mg tablet Take 40 mg by mouth once daily. oxybutynin (DITROPAN) 5 mg tablet Take 5 mg by mouth twice daily. calcium carbonate (CALTRATE) 600 mg calcium (1,500 mg) tab Take 1,200 mg by mouth once daily. Vit A,C and R-Ekifaj-Xwonkijj (OCUVITE) 300 mcg-200 mg-27 mg-2 mg tab Take 1 tablet by mouth once daily. aspirin, enteric coated (ASPIRIN, ENTERIC COATED) 81 mg EC tablet Take 81 mg by mouth once daily. Allergies: Patient has no known allergies. ROS: Pertinent positives and negatives are listed in the HPI, all other systems were reviewed and found to be negative. PHYSICAL EXAM: BP 112/68 (BP Site: Right Arm, BP Position: Sitting, BP Cuff Size: Regular Adult) Pulse 79 Ht 170.2 cm (5' 7) Wt 89.8 kg (198 lb) SpO2 94% BMI 31.01 kg/m General- nad, comfortable Eyes- eomi ENT- mmm, oropharynx clear, CV- RRR Resp- crackles at bases Neuro- normal gait, no focal deficits Psych- appropriate mood and affect Labs / Imaging / Diagnostic Studies: Oximetry with Ambulation Test for This Encounter O2 Device O2 Adapter NC O2 Flow SpO2% HR Activity Ft Walked (ft) Time (min) Avg Speed (MPH) R/A 94 88 Resting R/A 93 100 Walking, usual pace 500 3 1.89 R/A 96 86 Resting R/A 91 107 Walking, fastest pace 635 Assessment: R anterior rib fractures- 5th and 6th ribs- after a fall on 12/30/23 Hypoxia- was requiring 4 L oxygen in the hospital- back to baseline now Hypersensitivity pneumonitis-confirmed on bronchoscopy 02/2023. Was on systemic steroids for severalmonths and weaned off altogether in July 2023. Symptoms remain stable off prednisone. She no longerworks at the [employer]. Possible component of diastolic heart failure with slightly elevated left ventricular filling pressures -was on low dose lasix, has not noticed a big difference since stopping Smoking history, 9 pack years, quit at age 31 Hyperlipidemia 15 pet birds for 3 years Physical deconditioning Plan: Will fax oxygen discontinuation order to her oxygen supply company She will keep appointment in April as scheduled with Dr. Mckeon with [employer] and [employer] Ivan Talavera PA-C February 12, 2024 10:49 AM documented in this encounterUniversity [facility]als [facility]12-30-2024 NoteHNO ID: [id number] Author: NATY MELGAR, DAY HABILITATION SUPERVISOR Service: ? Author Type: Registered Resp Therapist Type: Procedures Filed: 02/12/2024 10:18 Note Text: RESPIRATORY THERAPY OXIMETRY WITH AMBULATION Oximetry with Ambulation Test for This Encounter O2 Device O2 Adapter NC O2 Flow SpO2% HR Activity Ft Walked (ft) Time (min) Avg Speed (MPH) R/A 94 88 Resting R/A 93 100 Walking, usual pace 500 3 1.89 R/A 96 86 Resting R/A 91 107 Walking, fastest pace 635 3 2.41 General Information Pulse Oximetry Site Total Time Spent Walking Assistance/O2 Supply Carrier Forehead 30 None NAME: Naty Melgar RRT PATIENT NAME: Kassandra Smith DATE: February 12, 2024 TIME: 10:18 AM Comment:[facility]12-30-2024 NoteHNO ID: [id number] Author: NATY MELGAR RRT Service: ? Author Type: Registered Resp Therapist Type: Progress Notes Filed: 02/12/2024 10:17 Note Text: PULM FUNCTION: Provider: Ivan Talavera PA-C [facility] History of Present illness Narrative* Debra Mejia APRN-LILIANA - 01/23/2024 8:20 AM ESTAssociated Order(s): L Inj/Asp: R subacromial bursa Subjective Patient ID: Nhi Smith is a 68 y.o. female. Chief Complaint: Pain of the Right Shoulder Right Shoulder This is a pleasant 68-year-old tjpec-pjhp-ybfbdiwg female presenting to the office for evaluation of right shoulder pain. Patient states that she was experiencing right shoulder pain approximately 1 month ago, but unfortunately sustained a fall 3 weeks ago. She was walking her dogs with the leash in her right hand when her dog took off causing her to fall directly onto her right shoulder. [facility] multiple view x-rays of her right shoulder obtained without evidence of acute fracture or dislocation, but did show mild arthritis. Where multiple view x-rays of her right shoulder obtained without evidence of acute fracture or dislocation, but did show mild arthritis. She was noted to have broken ribs, which are being treated conservatively. She has followed up with her primary care physician following this fall, and was referred to orthopedics for continued right shoulder pain. Presents to the office today complaining of right shoulder pain limitedrange of motion and weakness. She points directly to her right shoulder and deltoid when describingthe pain. Pain is constant on a daily basis. She is having difficulty with any overhead reaching activities, lifting and reaching behind her back. She denies numbness and paresthesia of right upper extremity. She has been taking Klonopin, gabapentin, Tylenol and ibuprofen for pain and discomfort ofboth shoulder and ribs. She is retired. The patient's past medical, surgical, family, and social history as well as allergies and medications were reviewed and updated in the chart. Objective Ortho Exam Pleasant and no acute distress. Right shoulder normal appearance, no overlying skin changes, no muscle atrophy. Right shoulder forward flexion 120 . No effusion or instability. There is positive Neerand Moseley impingement. There is subacromial crepitus and tenderness around the subacromial space.No biceps tenderness. Minimal acromioclavicular tenderness. Rotator cuff strength is decreased and there is discomfort with strength testing. Plus 4 out of 5 strength with resisted forward flexion and external rotation. Plus 5 out of 5 strength with resisted internal rotation. Left shoulder forwardflexion 180 . No effusion or instability. No impingement or crepitus or tenderness involving the subacromial space. No biceps or acromioclavicular tenderness. There is intact rotator cuff strength. There is adequate range of motion of the cervical spine without pain. Both upper extremities are wellperfused, skin is intact and muscle tone is adequate. Elbow flexion and extension and wrist flexionand extension strength are intact. Sensation intact to light touch. Image Results: Multiple view x-rays of the right shoulder obtained January 02, 2024 personally reviewed, with mild degenerative changes noted of the glenohumeral and acromioclavicular joint spaces. No evidence of acute fracture or dislocation. Assessment/Plan Encounter Diagnoses: Acute pain of right shoulder, right shoulder rotator cuff tendinitis Plan: Discussion with patient in regards to right shoulder pain with review of previous x-rays. Conservative treatment options were discussed at length. We discussed obtaining an MRI versus beginningwith conservative treatment options. Patient states that she would prefer to begin with conservative treatment options. We discussed formal physical therapy to help with right shoulder strengthening and range of motion, referral provided. We also discussed the right shoulder subacromial bursa injection of Kenalog/lidocaine to help decrease pain and inflammation, which patient agreed to and tolerated well. She can continue with Tylenol and ibuprofen. If patient does not see significant relief ofsymptoms in 6 to 8 weeks following injection and physical therapy, an MRI of the right shoulder would be indicated to assess for rotator cuff tear. She should avoid aggravating activities including any excessive overhead reaching or lifting. She can follow-up as needed. L Inj/Asp: R subacromial bursa on 01/23/2024 8:47 AM Indications: pain Details: 22 G needle, posterior approach Medications: 40 mg triamcinolone acetonide 40 mg/mL; 2 mL lidocaine 20 mg/mL (2 %) Procedure, treatment alternatives, risks and benefits explained, specific risks discussed. Consent was given by the patient. documented in this [facility] Work Phone: [phone]) 852-542312-06-2024 History of Present illness Narrative* Bright Escobedo, - 01/19/2024 1:30 PM EST Subjective Patient ID: Kassandra Hankins is a 68 y.o. female who presents for hospital discharge follow up. [facility] Nhi is here for hospital follow up. She had a mechanical trip and fall onto her right sided. Was admitted at [facility] to the trauma service, was found to have broken ribs. She required oxygen while admitted and was discharged on home oxygen. She is using it PRN at this time. Has had follow up with her established [employer] rep. Has had chronic right shoulder pain, had worsened right shoulder pain with her fall. Xray did not demonstrate any acute fracture, did demonstrate some osteoarthrosis and rotator cuff tendinosis. She continues to have limitations in right shoulder ROM with significant pain concerning for rotator cuff injury. Having stress incontinence. Detrol has been helping OAB symptoms, but she have stress incontinence.She has tried home exercises without significant improvement. Review of Systems A 10 point review of systems is otherwise negative unless stated in the HPI. Objective Vitals: 01/19/24 1336 BP: 120/82 Physical Exam GEN: alert, conversant, NAD HEENT: PERRL, EOMI, MMM, Tms pearly hylton bilaterally NECK: supple, no LAD appreciated CHEST: CTAB CV: S1, S2, RRR, no murmurs appreciated ABD: soft, NT, ND EXT: no significant LE edema SKIN: warm, dry Assessment/Plan #transitional care management #right rib fractures -Reviewed recent hospitalization, including: labwork, imaging, documentation and reconciled currentmedications with patient - wean oxygen as tolerated, currently using PRN. - continue gabapentin 300mg nightly #right shoulder pain, acute on chronic Limitation in ROM concerning for possible rotator cuff injury Xray reviewed - referral to orthopedics for further workup #ILD #asthma/COPD Not current taking an prednisone - following with Pulmonology - Using Advair HFA - Uses albuterol inhaler 4-5 times weekly. #Depression/Anxiety - Offered referral for counseling/therapy services, patient agreeable - Maintained on stable dose of celexa for ~30 years - Continue wellbutrin 150mg daily #fatigue, much improved - encouraged routine sleep/wake cycle - avoid multiple daytime naps and allow for 8 hours of sleep nightly #OAB #stress incontinence - maintained on oxybutynin 5mg BID, not having good improvement in symptoms on current dose. No improvement with Oxybutynin TID - Initially some improvement with switch to Detrol XL 2mg dose. - referral to PT for pelvic floor therapy # Dyslipidemia Continue with current management without changes: atorvastatin 80mg daily Discussed healthy diet and lifestyle. #Obesity, Class I - Counseled continued efforts on lifestyle modification including weight loss, diet, and increased exercise for >5 minutes Health Maintenance: Vaccines: COVID (UTD), Flu (UTD), Shingles (advised), Pneumonia (x1, advised prevnar) Screening: Colonoscopy (2023, repeat in 1 year) Labs: reviewed recent RTC in 3 month, or sooner PRN Bright Escobedo DO [facility] Work Phone: 1(219) 414-903311-25-2024 Telephone encounter Note* Telephone Encounter - Kimberly Martins RN - 01/08/2024 4:09 PM EST Updated patient below message. Schedulers can you please reach out to patient to assist with scheduling a repeat oximetry in 4 weeks . Thanks! [facility] Work Phone: [phone] Miscellaneous Notes* Telephone Encounter - Kimberly Martins RN - 01/08/2024 4:09 PM EST Updated patient below message. Schedulers can you please reach out to patient to assist with scheduling a repeat oximetry in 4 weeks . Thanks! * Telephone Encounter - Ivan Talavera PA-C - 01/08/2024 3:58 PM EST Please let Nhi know that her testing does show she is still requiring oxygen. However- she no longer needs 4 L of oxygen. She does not need to wear oxygen at rest but recommend she still wear 2 L with exertion and sleep and we can update the testing again in 4 weeks documented in this encounterUniversity Hospitals [facility]11-25-2024 Telephone encounter Note * Telephone Encounter - Ivan Talavera PA-C - 01/08/2024 3:58 PM EST Please let Nhi know that her testing does show she is still requiring oxygen. However- she no longer needs 4 L of oxygen. She does not need to wear oxygen at rest but recommend she still wear 2 L with exertion and sleep and we can update the testing again in 4 weeks [facility]11-25-2024 NoteHNO ID: [id number] Author: NATY MELGAR RRT Service: ? Author Type: Registered Resp Therapist Type: Progress Notes Filed: 01/08/2024 14:50 Note Text: PULM FUNCTION: Provider: Ivan Talavera PA-C [facility] History of Present illness Narrative* Naty Melgar RRT - 01/08/2024 2:49 PM EST PULM FUNCTION: Provider: Ivan Talavera PA-C Oximetry - Ambulation: 1 documented in this encounterUniversity Hospitals Portage [facility] Center11-25-2024 NoteHNO ID: [id number] Author: NATY MELGAR RRT Service: ? Author Type: Registered Resp Therapist Type: Procedures Filed: 01/08/2024 14:50 Note Text: RESPIRATORY THERAPY OXIMETRY WITH AMBULATION Oximetry with Ambulation Test for This Encounter O2 Device O2 Adapter NC O2 Flow SpO2% HR Activity Ft Walked (ft) Time (min) Avg Speed (MPH) R/A 92 80 Resting R/A 87 89 Walking, usual pace 235 1.7 1.57 NC 2 93 73 Resting NC 2 93 88 Walking, usual pace 405 3 1.53 General Information Pulse Oximetry Site Total Time Spent Walking Assistance/O2 Supply Carrier Forehead 30 Wheeled Walker NAME: Naty Melgar RRT PATIENT NAME: Kassandra Smith DATE: January 08, 2024 TIME: 2:49 PM Comment:[facility]11-25-2024 Procedure note* Naty Melgar RRT - 01/08/2024 2:48 PM ESTAssociated Order(s): OXIMETRY WITH AMBULATION RESPIRATORY THERAPY OXIMETRY WITH AMBULATION Oximetry with Ambulation Test for This Encounter O2 Device O2 Adapter NC O2 Flow SpO2% HR Activity Ft Walked (ft) Time (min) Avg Speed (MPH) R/A 92 80 Resting R/A 87 89 Walking, usual pace 235 1.7 1.57 NC 2 93 73 Resting NC 2 93 88 Walking, usual pace 405 3 1.53 General Information Pulse Oximetry Site Total Time Spent Walking Assistance/O2 Supply Carrier Forehead 30 Wheeled Walker NAME: Naty Melgar RRT PATIENT NAME: Kassandra Smith DATE: January 08, 2024 TIME: 2:49 PM Comment: [facility]11-25-2024 Procedure note* Naty Melgar RRT - 01/08/2024 2:48 PM ESTAssociated Order(s): OXIMETRY WITH AMBULATION RESPIRATORY THERAPY OXIMETRY WITH AMBULATION Oximetry with Ambulation Test for This Encounter O2 Device O2 Adapter NC O2 Flow SpO2% HR Activity Ft Walked (ft) Time (min) Avg Speed (MPH) R/A 92 80 Resting R/A 87 89 Walking, usual pace 235 1.7 1.57 NC 2 93 73 Resting NC 2 93 88 Walking, usual pace 405 3 1.53 General Information Pulse Oximetry Site Total Time Spent Walking Assistance/O2 Supply Carrier Forehead 30 Wheeled Walker NAME: Naty Melgar RRT PATIENT NAME: Kassandra Smith DATE: January 08, 2024 TIME: 2:49 PM Comment: documented in this encounterUniversity Hospitals Portage [facility] Center11-25-2024 Instructions* Patient Instructions* Ivan Talavera PA-C - 01/08/2024 2:11 PM EST In order to discontinue your oxygen- we need an updated ambulatory oximetry test- we can get thi scheduled within 1-2 weeks In the meantime- go ahead an drop oxygen to 3 L and could even consider to 2L Once you get he testing ill update you with those results Otherwise keep appointment in April with Dr. Mckeon Combined ICS/LABA: Symbicort Breo Dulera Wixela AirDuo Breyna If insurance does not have a cheaper alternative- we cans end [facility] a prescription [facility]- Looks like nebulized budesonide and advair diskus are the cheapest options: $36 and $63 respectively documented in this encounterUniversity Hospitals Portage [facility] Center11-25-2024 NoteHNO ID: [id number] Author: IVAN TALAVERA PA-C Service: ? Author Type: Physician Magazine Filler Type: Progress Notes Filed: 01/08/2024 15:16 Note Text: . Pulmonary Clinic Follow-up Note Patient Name: Kassandra Smith PRIMARY CARE PHYSICIAN: Marcela Buchanan MD Date of visit: January 08, 2024 COMMUNICATION WILL BE SENT VIA SHARED MEDICAL RECORDS OR US MAIL. Subjective: Kassandra Smith is a 68 year old year old female who presents for hospital follow up. last seen in the office 10/23/[address] Mckeon for hypersensitivity pneumonitis At that time, symptoms were stable off steroids. Plan was to continue high dose ICS-LABA snd if symptoms worsen, would discuss restarting systemic steroids, removing birds from her home Since seeing us last, had a fall on 12/30/23- was pulled down by her dog when taking them for walk and completely lande don her R side. She went to ER on 01/02/24 due to pain in the R side. Ultimately ended up admitting to the hospital for hypoxia and 2 rib fractures. 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 She presented to the ED on 01/01 with complaints of right chest/rib pain as well as right shoulder pain following a fall from standing on 12/29. -head strike, -LOC. She had been walking her dog when he pulled and she fell over landing on her right side on the sidewalk. The patient states that the pain did not get any better and she was experiencing some shortness of breath, therefore, she decided to come to the ED. Upon arrival, the patient's SpO2 was 76% on room air. Once patient was in an ED bed, she was placed on Airvo. CT with nondisplaced right 5th and 6th rib fractures. Admitted to trauma service and was in ICU for High flow O2. Multimodal pain management initiated and patient had improving respiratory status. Transferred to [facility] on hospital day 3 and was weaned to 6L NC. On hospital day 4 (day of discharge) she was weaned to 4L NC. Both medicine and pulmonology consults had nothing further to add. Prescription for home O2 sent and set up at patient's house. On day of discharge all vital signs, laboratory data, and physical exam findings were reviewed and patient was deemed appropriate for hospital discharge. At the time of discharge, patient's pain was controlled with oral analgesia, patient was urinating, having BMs, sleeping, and eating well. Patient was discharged home with scripts and follow up appointment recommendations. Discharge plan was discussed with the patient and all of the patient's questions were answered. Patient verbalized understanding of discharge instructions and was able to perform read-back technique. Since hospitalization is wearing 4 L at all times at home. Is not currently wearing it now. Does not feel SOB. Did not feel sob prior to going to ER. Is hoping to come off oxygen. Prior to this fall, states continues to do well from a cough standpoint. MEDICATIONS: tolterodine ER (DETROL LA) 2 mg 24 hr capsule Take 2 mg by mouth. ADVAIR HFA 230-21 mcg/actuation inhaler INHALE 2 PUFFS BY MOUTH TWICE DAILY DIRECTED tolterodine (DETROL) 2 mg tablet Take 2 mg by mouth once daily. buPROPion SR (WELLBUTRIN SR) 150 mg 12 hr tablet Take 150 mg by mouth once daily. albuterol HFA (PROVENTIL HFA, VENTOLIN HFA) 90 mcg/actuation inhaler Inhale 2 Puffs as instructed every 4 hours as needed for wheezing/shortness of breath. fluticasone-salmeterol (ADVAIR DISKUS) 500-50 mcg/dose dsdv Inhale 1 Puff as instructed two times a day. pantoprazole DR (PROTONIX) 40 mg tablet Take 1 tablet by mouth daily at 6 am. tacrolimus (PROTOPIC) 0.1 % ointment APPLY TO AFFECTED TWICE DAILY X 14 DAYS, STOP FOR 1 WEEK AND RESUME IF NEEDED atorvastatin (LIPITOR) 80 mg tablet Take 1 tablet by mouth daily at bedtime. albuterol HFA (PROVENTIL HFA, VENTOLIN HFA) 90 mcg/actuation inhaler Inhale 1 Puff as instructed every 4 hours as needed for wheezing/shortness of breath. 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 albuterol (PROVENTIL) 2.5 mg /3 mL (0.083 %) nebulizer solution Use 3 mL via nebulizer every 4 hours as needed for wheezing/shortness of breath. citalopram (CELEXA) 40 mg tablet Take 40 mg by mouth once daily. oxybutynin (DITROPAN) 5 mg tablet Take 5 mg by mouth twice daily. calcium carbonate (CALTRATE) 600 mg calcium (1,500 mg) tab Take 1,200 mg by mouth once daily. Vit A,C and N-Aarnzo-Nrashahu (OCUVITE) 300 mcg-200 mg-27 mg-2 mg tab Take 1 tablet by mouth once daily. aspirin, enteric coated (ASPIRIN, ENTERIC COATED) 81 mg EC tablet Take 81 mg by mouth once daily. Allergies: Patient has no known allergies. ROS: Pertinent p (more content not included)...[facility]11-25-2024 History of Present illness Narrative* Ivan Talavera PA-C - 01/08/2024 1:51 PM EST Images from the original note were not included. . Pulmonary Clinic Follow-up Note Patient Name: Kassandra Smith PRIMARY CARE PHYSICIAN: Marcela Buchanan MD Date of visit: January 08, 2024 COMMUNICATION WILL BE SENT VIA SHARED MEDICAL RECORDS OR US MAIL. Subjective: Kassandra Smith is a 68 year old year old female who presents for hospital follow up. last seen in the office 10/23/[address] Mckeon for hypersensitivity pneumonitis At that time, symptoms were stable off steroids. Plan was to continue high dose ICS-LABA snd if symptoms worsen, would discuss restarting systemic steroids, removing birds from her home Since seeing us last, had a fall on 12/30/23- was pulled down by her dog when taking them for walk and completely lande don her R side. She went to ER on 01/02/24 due to pain in the R side. Ultimately ended up admitting to the hospital for hypoxia and 2 rib fractures. Per discharge summary Hospital Course Kassandra Smith is a 68-year-old female with a PMH of asthma, COPD, interstitial lung disease (frombirds, biopsy confirmed - follows with [facility]), depression/anxiety, overactive bladder, and HLD. She presented to the ED on 01/01 with complaints of right chest/rib pain as well as right shoulder pain following a fall from standing on 12/29. -head strike, -LOC. She had been walking her dog when he pulled and she fell over landing on her right side on the sidewalk. The patient states that the pain did not get any better and she was experiencing some shortness of breath, therefore, she decided to come to the ED. Upon arrival, the patient's SpO2 was 76% on room air. Once patient was in an ED bed, she was placed on Airvo. CT with nondisplaced right 5th and 6th rib fractures. Admitted to trauma service and was in ICU for High flow O2. Multimodal pain management initiated and patient had improving respiratory status. Transferred to [facility] on hospital day 3 and was weaned to 6L NC. On hospital day 4 (day of discharge) she was weaned to 4L NC. Both medicine and pulmonology consults had nothing further to add. Prescription for home O2 sent and set up at patient's house. On day of discharge all vital signs, laboratory data, and physical exam findings were reviewed and patient was deemed appropriate for hospital discharge. At the time of discharge, patient's pain was controlled with oral analgesia, patient was urinating, having BMs, sleeping, and eating well. Patient was discharged home with scripts and follow up appointment recommendations. Discharge plan was discussed with the patient and all of the patient's questions were answered. Patient verbalized understanding of discharge instructions and was able to perform read-back technique. Since hospitalization is wearing 4 L at all times at home. Is not currently wearing it now. Does not feel SOB. Did not feel sob prior to going to ER. Is hoping to come off oxygen. Prior to this fall, states continues to do well from a cough standpoint. MEDICATIONS: tolterodine ER (DETROL LA) 2 mg 24 hr capsule Take 2 mg by mouth. ADVAIR HFA 230-21 mcg/actuation inhaler INHALE 2 PUFFS BY MOUTH TWICE DAILY DIRECTED tolterodine (DETROL) 2 mg tablet Take 2 mg by mouth once daily. buPROPion SR (WELLBUTRIN SR) 150 mg 12 hr tablet Take 150 mg by mouth once daily. albuterol HFA (PROVENTIL HFA, VENTOLIN HFA) 90 mcg/actuation inhaler Inhale 2 Puffs as instructed every 4 hours as needed for wheezing/shortness of breath. fluticasone-salmeterol (ADVAIR DISKUS) 500-50 mcg/dose dsdv Inhale 1 Puff as instructed two times aday. pantoprazole DR (PROTONIX) 40 mg tablet Take 1 tablet by mouth daily at 6 am. tacrolimus (PROTOPIC) 0.1 % ointment APPLY TO AFFECTED TWICE DAILY X 14 DAYS, STOP FOR 1 WEEK AND RESUME IF NEEDED atorvastatin (LIPITOR) 80 mg tablet Take 1 tablet by mouth daily at bedtime. albuterol HFA (PROVENTIL HFA, VENTOLIN HFA) 90 mcg/actuation inhaler Inhale 1 Puff as instructed every 4 hours as needed for wheezing/shortness of breath. 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 albuterol (PROVENTIL) 2.5 mg /3 mL (0.083 %) nebulizer solution Use 3 mL via nebulizer every 4 hours as needed for wheezing/shortness of breath. citalopram (CELEXA) 40 mg tablet Take 40 mg by mouth once daily. oxybutynin (DITROPAN) 5 mg tablet Take 5 mg by mouth twice daily. calcium carbonate (CALTRATE) 600 mg calcium (1,500 mg) tab Take 1,200 mg by mouth once daily. Vit A,C and B-Gkdxco-Eoffauhz (OCUVITE) 300 mcg-200 mg-27 mg-2 mg tab Take 1 tablet by mouth once daily. aspirin, enteric coated (ASPIRIN, ENTERIC COATED) 81 mg EC tablet Take 81 mg by mouth once daily. Allergies: Patient has no known allergies. ROS: Pertinent positives and negatives are listed in the HPI, all other systems were reviewed and found to be negative. PHYSICAL EXAM: BP 110/74 (BP Site: Left Arm, BP Position: Sitting, BP Cuff Size: Regular Adult) Pulse 73 Ht 170.2 cm (5' 7) Wt 89.8 kg (198 lb) SpO2 92% BMI 31.01 kg/m General- nad, comfortable Eyes- eomi ENT- mmm, oropharynx clear, CV- RRR Resp- clear to auscultation bilaterally, no wheezes or crackles, breathing nonlabored Neuro- normal gait, no focal deficits Psych- appropriate mood and affect Labs / Imaging / Diagnostic Studies: CT PE from 01/02/24 Impression Partially limited evaluation of the pulmonary arteries otherwise no discrete pulmonary embolism identified to the segmental level. Subtle minimally displaced/deformed right anterior 5th and 6th rib fractures. No sizable pneumothorax is identified. Hazy parenchymal airspace opacities which could be related to air trapping, infection or inflammatory changes. Bibasilar are consolidative opacities with bronchiectasis and bronchial wall thickening may be related to aspiration pneumonitis or infection. No acute abnormality of the abdomen and pelvis. Chronic changes including hepatomegaly, significant stool burden and additional findings as detailed. Assessment: Hospital follow up R anterior rib fractures- 5th and 6th ribs Hypoxia- was requiring 4 L oxygen in the hospital- has been continuing to wear 4 L at home, but is not on oxygen now and is 92% on room air. Hypersensitivity pneumonitis-confirmed on bronchoscopy 02/2023. Was on systemic steroids for severalmonths and weaned off altogether in July 2023. Symptoms remain stable off prednisone. She no longerworks at the [employer]. Possible component of diastolic heart failure with slightly elevated left ventricular filling pressures -was on low dose lasix, has not noticed a big difference since stopping Smoking history, 9 pack years, quit at age 31 Hyperlipidemia 15 pet birds for 3 years Physical deconditioning Plan: Recommend updating ambulatory oximetry to see what current oxygen requirements are. She is asking to come off oxygen. We can do today, but she's aware may need to repeat this in a few weeks or so. Follow up for scheduled appt with Dr. Mckeon in April as scheduled I spent a total of 41 minutes on the date of the service which included preparing to see the patient, [id number] patient care, completing clinical documentation, obtaining and/or reviewing separately obtained history, performing a medically appropriate examination, counseling and educating the pat ient/family/caregiver, ordering medications, tests, or procedures, communicating with other HCPs (not separately reported), and independently interpreting results (not separately reported). Ivan Talavera PA-C January 08, 2024 3:15 PM documented in [facility] History of Present illness Narrative* Sofia Wade MD - 01/05/2024 11:36 AM EST Trauma Surgery Attending Note My Acute Care Surgery MYRNA (Advanced Practice Provider) evaluated this patient today. Please see that documentation for details. I saw the patient with the MYRNA today, and personally evaluated and examined the patient. My findings are consistent with those of the MYRNA. Impression: Hospital day #4 Post trauma day #6 Patient continues to feel better Oxygen is now weaned down to 4 L O2 nasal cannula Mild right anterior chest wall discomfort Afebrile with normal vital signs Lungs remain with scattered crackles posteriorly Mild right anterior chest wall tenderness Overall impression is same level fall with right anterior fifth and sixth rib fractures with hypoxia. Hypoxia slowly improving. Plan: Plan discharge to home today on 4 L O2 nasal cannula Analgesia for home Explained expectations of the patient of a 4 to 6-week healing process for the buckle fractures of the ribs Patient will follow-up with both pulmonology and medicine Follow-up in trauma clinic as needed * Shelley Pandey PA-C - 01/04/2024 4:52 PM EST Kassandra Hankins is a 68 y.o. female on day 2 of admission presenting with Closed fracture of multiple ribs of right side, initial encounter. Subjective Pt reports pain is better as long as she is getting her meds. Off airvo, on 6L NC. Denies SOB. SoftBps today, boluses ordered. Transferred to the floor. Objective Physical Exam Constitutional: Appearance: Normal appearance. She is not ill-appearing. Eyes: Extraocular Movements: Extraocular movements intact. Pupils: Pupils are equal, round, and reactive to light. Cardiovascular: Rate and Rhythm: Normal rate and regular rhythm. Heart sounds: Normal heart sounds. Pulmonary: Effort: Pulmonary effort is normal. No respiratory distress. Breath sounds: Rales (diffuse) present. Comments: Chest wall non-tender, no ecchymosis Musculoskeletal: General: Normal range of motion. Skin: General: Skin is warm and dry. Neurological: General: No focal deficit present. Mental Status: She is alert and oriented to person, place, and time. GCS: GCS eye subscore is 4. GCS verbal subscore is 5. GCS motor subscore is 6. Psychiatric: Mood and Affect: Mood normal. Behavior: Behavior normal. Last Recorded Vitals Blood pressure (!) 95/48, pulse 66, temperature 36.9 C (98.4 F), resp. rate 17, height 1.702 m (5' 7.01), weight 87.7 kg (193 lb 5.5 oz), SpO2 91%. Intake/Output last 3 Shifts: No intake/output data recorded. Relevant Results Results for orders placed or performed during the hospital encounter of 01/02/24 (from the past 24 hours) Magnesium Result Value Ref Range Magnesium 2.07 1.60 - 2.40 mg/dL Renal Function Panel Result Value Ref Range Glucose 80 74 - 99 mg/dL Sodium 140 136 - 145 mmol/L Potassium 4.1 3.5 - 5.3 mmol/L Chloride 105 98 - 107 mmol/L Bicarbonate 29 21 - 32 mmol/L Anion Gap 10 10 - 20 mmol/L Urea Nitrogen 21 6 - 23 mg/dL Creatinine 1.01 0.50 - 1.05 mg/dL eGFR 61 >60 mL/min/1.73m*2 Calcium 9.0 8.6 - 10.3 mg/dL Phosphorus 4.5 2.5 - 4.9 mg/dL Albumin 3.5 3.4 - 5.0 g/dL CBC Result Value Ref Range WBC 8.3 4.4 - 11.3 x10*3/uL nRBC 0.0 0.0 - 0.0 /100 WBCs RBC 4.52 4.00 - 5.20 x10*6/uL Hemoglobin 14.6 12.0 - 16.0 g/dL Hematocrit 45.4 36.0 - 46.0 % MCV 100 80 - 100 fL MCH 32.3 26.0 - 34.0 pg MCHC 32.2 32.0 - 36.0 g/dL RDW 13.2 11.5 - 14.5 % Platelets 240 150 - 450 x10*3/uL Assessment/Plan Kassandra Smith is a 68-year-old female with a PMH of asthma, COPD, depression/anxiety, overactive bladder, HLD, and interstitial lung disease. Patient presented to the ED with complaints of right chest/rib pain, as well as right shoulder pain following a fall from standing. -head strike, -LOC. The patient states that the pain did not get any better and she was experiencing some shortness of breath, therefore, she decided to come to the ED. Upon arrival, the patient's SpO2 was 76% on room air. Once patient was in an ED bed, she was placed on Airvo. List of Injuries: #Right 5th and 6th rib fractures #Right shoulder pain #Acute hypoxia Assessment and Plan: #Right 5th and 6th rib fractures - CT surgery consult would not be of any benefit as fractures are non-surgical - Regular diet - Multimodal pain management > Scheduled Tylenol > Scheduled Ibuprofen > Scheduled gabapentin > Lidocaine patch > Scheduled mag -ox > PRN narcotics - Labs prn - IS every hour - Pulmonary hygiene - Continuous pulse ox - PT/OT #Right shoulder pain - XR ordered-no acute osseous abnormality - Multimodal pain management - PT/OT #Acute hypoxia - improved - Currently on 6L NC, continue to wean as able, target SpO2 >89% - Pulmonology on consult, appreciate recs - Continuous pulse ox Chronic conditions #Asthma/COPD #Interstitial Lung Disease #Depression/Anxiety #Overactive bladder #HLD - Consult PCP/Dr Escobedo for medical management in conjunction with pulmonology - Continue home medications Dispo: Patient not medically ready for discharge. Patient will likely be in the hospital for 2 to 3days, mostly depending on pulmonary function. Patient seen and discussed with attending driver lifter of sanitation truck surgeon Dr. Wade. Shelley Pandey PA-C * Sofia Wade MD - 01/04/2024 1:23 PM EST Trauma Surgery Attending Note My Acute Care Surgery MYRNA (Advanced Practice Provider) evaluated this patient today. Please see that documentation for details. I saw the patient with the MYRNA today, and personally evaluated and examined the patient. My findings are consistent with those of the MYRNA. Impression: Hospital day #3 Post trauma day #5 Patient feels better Still with right anterior chest wall discomfort Afebrile with normal vital signs Respiratory rate 17 Patient is down to 6 L O2 nasal cannula Lungs remain with scattered crackles posteriorly Overall impression is same level fall with right anterior fifth and sixth rib fractures with hypoxia. Hypoxia slowly improving. Plan: Appreciate medicine and pulmonology consultations -reviewed Maintain O2 saturation with supplemental oxygen Multimodal analgesia Occupational and physical therapy Pulmonary toilet Continuous pulse oximetry Transferred to a [facility] floor * Bhargavi Kohler - 01/04/2024 1:05 PM EST Spiritual Care Visit Food Manager Notes Ms. Smith welcomed a visit. She shared about her present health concern. She talked about spiritualmatters that were meaningful to her. This was patient- centered care. She expressed her emotions. I offered emotional, spiritual care as part of a holistic approach to wellness. I addressed wellbeing as whole- person care of the body, mind and spirit. Per her request, I prayed. She expressed gratitude. There are no other needs. Clinical Encounter Type Visited With: Patient Routine Visit: Introduction Continue Visiting: No Referral From: Food Manager Patient Spiritual Care Encounters Suffering Severity: Mild Fear Level: None Feelings of Loneliness: Excellent Feelings of Hopelessness: Excellent Coping: Consistently demonstrated Social Interaction: 100% of the time Taxonomy Intended Effects: Establish rapport and connectedness Methods: Encourage story-telling Interventions: Active listening Patient: Nhi Smith Date: 01/04/2024 Time: 4:41 PM Total time (min.): 85 I am available upon request. [facility] Department of Spiritual Care Contact #: Signed by: Rev. Bhargavi Kohler [facility], MD * Tariq Umanzor DO - 01/04/2024 11:28 AM EST Kassandra Hankins is a 68 y.o. female on day 2 of admission presenting with Closed fracture of multiple ribs of right side, initial encounter. SUBJECTIVE Laying in bed comfortably, however complains of 8 out of 10 right rib pain. Tolerated morning breakfast. Breathing okay. On 6 L NC from Airvo last night. OBJECTIVE Physical Exam: General: Pleasant and cooperative. No apparent distress. HEENT: Normocephalic, atraumatic Chest: Clear to auscultation. Bilateral and appropriate chest rise CV: Regular rate and rhythm. Extremities: No lower extremity edema or cyanosis. Neurological: Conversing and answering questions appropriately Skin: Warm and dry. Last Recorded Vitals Blood pressure (!) 96/46, pulse 71, temperature 36.6 C (97.9 F), temperature source Temporal, resp.rate 17, height 1.702 m (5' 7.01), weight 87.7 kg (193 lb 5.5 oz), SpO2 91%. Intake/Output last 3 Shifts: No intake/output data recorded. Last CBC & BMP Lab Results Component Value Date GLUCOSE 80 01/04/2024 CALCIUM 9.0 01/04/2024 NA 140 01/04/2024 K 4.1 01/04/2024 CO2 29 01/04/2024 CL 105 01/04/2024 BUN 21 01/04/2024 CREATININE 1.01 01/04/2024 Lab Results Component Value Date WBC 8.3 01/04/2024 HGB 14.6 01/04/2024 HCT 45.4 01/04/2024 MCV 100 01/04/2024 PLT 240 01/04/2024 ASSESSMENT & PLAN Nhi Smith is a 68 y.o. female With past medical history interstitial lung disease, hyperlipidemia, asthma, COPD, depression and anxiety presenting after mechanical fall where her dog pulled her forward and she fell mostly on her right side. Denies hitting her head. She takes aspirin daily but is not on any other blood thinners. She had some difficulty breathing and came to the ED for furtherevaluation. Pulse ox was 76% in the ED. She was placed on Airvo. She has been tachypneic and her blood pressures have been stable for the most part. She does not use any home oxygen. EKG in the ED showed normal sinus rhythm with a rate of [address] changes. Labs show electrolytes largely within normal limits, white blood cell count 10.7. Chest x-ray was unremarkable. CT head was negative for acute fracture. CT abdomen pelvis with IV contrast shows minimally displaced right anterior fifth and sixth rib fractures without pneumothorax. There are bibasilar consolidative opacities present.There is significant colonic stool burden, biliary ductal dilation with common bile duct dilated upto 11 mm, gallbladder surgically absent. No PE. There is chronic hepatomegaly. X-ray of right shoulder was unremarkable. Patient was admitted to trauma service and medicine was consulted for further medical management. Patient currently endorses some shortness of breath and rib pain. Denies any fevers, chills, dizziness, lightheadedness, loss of consciousness. #R rib fractures 5th and 6th rib #Mechanical fall #Acute hypoxic respiratory failure #R shoulder pain after fall -wean oxygen, off Airvo now on 6 L NC -keep o2 sats between 88-94% -pain meds per trauma, avoid deadly triad -No surgical intervention, Multimodal pain control -pulm hygiene, cont pulse ox -pulm following -scheudled nebs -tele monitoring #Overactive bladder -home oxybutynin #Depression/Anxiety -home wellbutrin/celexa #HLD -home statin #COPD/hx ILD #Hypersensitivity pneumonitis -Pulm following; recommending removal of home birds. -home breo -duonebs #hepatomegaly -asymptomatic #Constipation -bowel regimen Tariq Umanzor DO PGY-2, Internal Medicine Please SecureChat for any further questions This is a preliminary note, please await attending attestation for final A/P Cosigned by Severo Dickens MD at 01/04/2024 11:47 AM EST Associated attestation - Severo Dickens MD - 01/04/2024 11:47 AM EST I saw and evaluated the patient. I personally obtained the bedoya and critical portions of the historyand physical exam or was physically present for bedoya and critical portions performed by the resident/fellow. I reviewed the resident/fellow's documentation and discussed the patient with the resident/f carlos. I agree with the resident/fellow's medical decision making as documented in the note. * Sheldon Domínguez MD - 01/04/2024 7:33 AM EST Assessment/Plan This is a 68-year-old female with history of asthma, COPD, depression/anxiety, overactive bladder, hyperlipidemia, interstitial lung disease, extensive dynamic airway collapse presented on 01/01 after a fall while walking her dog with associated right chest/rib pain and shortness of breath, worsening requiring Airvo support. Acute hypoxic respiratory failure Interstitial lung disease secondary to chronic hypersensitivity pneumonitis due to Birds fancier lung disease ( Biopsy confirmed at [facility]) Asthma COPD, in exacerbation Traction bronchiectasis, extensive dynamic airway collapse Mechanical fall, subsequent rib fractures complicating the above -Reviewed 3 cryo biopsies from [facility] from February 2023 obtained via bronchoscopy. Showing poorly formed granulomas, highly suggestive of hypersensitivity pneumonitis. Patient has been counseled on removing the birds from her home previously; we had the same conversation with her. Patientwas previously on steroids and Bactrim for PCP prophylaxis, she states was given instruction to discontinue these. -Reviewed CT scan with the patient. She has bibasilar consolidative opacities in the lower lobes, suggestive of early interstitial lung disease. Thus, we will continue to encourage her to discontinueexposure to the birds to slow the progression. -Not chronically on oxygen. No longer on Airvo, on 5 L nasal cannula. Wean as able to maintain [id number] than 89%. -Chest x-ray negative for rib fracture. Encourage incentive spirometer. Aggressive IV hydration. Out of bed as tolerated. -Pain control with lidocaine patch, uptitrate regimen as tolerated and as needed -Recommend CT surgery consultation -DVT prophylaxis, PT/OT History Of Present Illness Nhi Smith is a 68 y.o. female medical history detailed below presented on 01/01 with complaints of right chest/rib pain and associated shortness of breath in addition to right shoulder pain. Shewas walking her dog on Monday morning and fell on her right side on the sidewalk as her dog pulled away. Not on anticoagulation, does take daily aspirin. Pain did not resolve and shortness of breath began to worsen, prompting her arrival to the emergency department. On arrival SpO2 76% on room air, subsequently placed on Airvo. Does not wear oxygen at baseline. By pulmonology at [facility]. Pulmonology consulted for further evaluation and management. Daily progress: 01/03: No longer on Airvo, downgraded to nasal cannula, 5 L. Feels as though her breathing has improved. Still having rib pain, however is more tolerable today. Is using her incentive spirometer. Is intermittently hypotensive, however. No documented fevers. Review of x-ray did not show any fractures. Physical Exam General appearance: Not in pain or distress HEENT: EOMI, ALLEGRA, pharynx clear, moist mucosa, redness of the uvula appreciated Neck: Supple Chest: Decreased breath sounds throughout,, appropriate respiratory effort: Acute respiratory distress Cardiovascular: Normal S1, S2, regular rate and rhythm, no murmur, rub or gallop Abdomen: Normal sounds present, soft, lax with no tenderness Extremities: No edema. Pulses are equally present. Skin: intact Neurologic: Alert and oriented x 2, no focal deficit, slightly confused Relevant Results Reviewed and independently interpreted CT chest completed on 01/01 showing subtle right anterior fifth and sixth rib fractures, bibasilar consolidative opacities with bronchiectasis. Chest x-ray on 01/01 showing bibasilar atelectasis, comparison with 01/02 showing no changes. Case discussed with primary team STAFF PHYSICIAN NOTE OF PERSONAL INVOLVEMENT IN CARE As the attending physician, I certify that I personally reviewed the patient's history and personally examined the patient to confirm the physical findings described above, and that I reviewed the relevant imaging studies and available reports. I also discussed the differential diagnosis and all ofthe proposed management plans with the patient and individuals accompanying the patient to this visit. They had the opportunity to ask questions about the proposed management plans and to have those questions answered. 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 Yes Type of Animals or Pets 4 dogs, 14 birds Home or Post Acute Services None Expected Discharge Disposition Home Does the patient need discharge transport arranged? No This TCC met with patient at bedside, introduced self and explained role. Demographic information and insurance verified. 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 Does not use assistive devices. Denies SW needs at this time. Patient plans to return home at discharge, no needs.PT/OT recommending no needs at discharge. Patient's sister is available to provide transportation home at discharge. Care Transitions will continue to follow. * Bee Sue, OT - 01/03/2024 3:24 PM EST Occupational Therapy Evaluation Patient Name: Kassandra Hankins Department: [facility] Room: [address] [place] [address] Today's Date: 01/03/2024 Time Calculation Start Time: 1149 Stop Time: 1200 Time Calculation (min): 11 min Assessment: End of Session Communication: Bedside nurse End of Session Patient Position: Up in chair, Alarm off, not on at start of session Plan: Treatment Interventions: ADL retraining, Functional transfer training, Compensatory technique education OT Frequency: 2 times per week OT Discharge Recommendations: No OT needed after discharge OT - OK to Discharge: Yes (to next level of care when cleared by medical team) Treatment Interventions: ADL retraining, Functional transfer training, Compensatory technique education Subjective Current Problem: 1. Closed fracture of multiple ribs of right side, initial encounter 2. Contusion of right lung, initial encounter General: General Reason for Referral: impaired adl; pt. fell while walking her dog, hit R shoulder and R ribs. ct a/p, c spine, angio chest and head: (-), except subtle minimally displaced/deformed R anterior 5th and6th rib fx's with no sizable pneumothorax identified, hazy airspace opacities could be airtrapping,infection or inflammatory changes, R shoulder xray: (-), general surgery: no surgical intervention Referred By: Cristiana Past Medical History Relevant to Rehab: anxiety, depression, copd, hld, asthma, overactive bladder,interstitial lung disease Patient Position Received: Up in chair, Alarm off, not on at start of session General Comment: pt. agreeable to therapy intervention Precautions: Precautions Comment: rib fractures, tele, airvo 50 L/min, 50%, VSS except for brief decrease spo2 88% near end of session, increased to above 90% with rest Pain: Pain Assessment Pain Assessment: (06/22 R side rib cage, pt. instructed in using pillow to splint/brace when coughing, pt. repositioned for comfort at and of session) Objective Cognition: Overall Cognitive Status: Within Functional Limits Home Living: Home Living Comments: pt. lives with sister and nephew, bedroom 2nd floor, full bath 1st floor, 2 step entry without rail, st. cane, stall shower, gb, seat, hhs, RTS, basement laundry Prior Function: Prior Function Comments: independent adl/iadl/ambulation without device, pt. drives, is retired IADL History: ADL: ADL Comments: pt. wearing pants/shoes, states was able to dress self with some difficulty due to rib pain, pt. educated in sequencing changes for completion of task with more ease Activity Tolerance: Early Mobility/Exercise Safety Screen: Proceed with mobilization - No exclusion criteria met Bed Mobility/Transfers: Transfers Transfer: (sit<> stand from recliner chair; sba) Functional Mobility: Functional Mobility Functional Mobility Performed: (pt's mobility limited by airvo, able to ambulate forward/backward without device, sba) Sensation: Sensation Comment: sensation intact Strength: Strength Comments: bue's at least 3/5 Outcome Measures:[facility] Daily Activity Putting on and taking off regular lower body clothing: A little Bathing (including washing, rinsing, drying): A little Putting on and taking off regular upper body clothing: A little Toileting, which includes using toilet, bedpan or urinal: A little Taking care of personal grooming such as brushing teeth: None Eating Meals: None Daily Activity - Total Score: 20 and Early Mobility/Exercise Safety Screen: Proceed with mobilization - No exclusion criteria met ICU Mobility Scale: Walking with assistance of 1 person [8] Education Documentation ADL Training, taught by Bee Sue OT at 01/03/2024 3:21 PM. Learner: Patient Readiness: Acceptance Method: Explanation Response: Verbalizes Understanding, Needs Reinforcement Goals: Encounter Problems Encounter Problems (Active) OT Goals Increase functional mobility and functional transfers to supervision for bed/chair/toilet with dme prn (Progressing) Start: 01/03/24 Expected End: 01/10/24 increase bue ther ex/activity x 7-10 minutes and increase standing tolerance x 3-5 minutes with supervision to promote greater activity tolerance for assist with adl. (Progressing) Start: 01/03/24 Expected End: 01/10/24 Increase ub/lb dressing to supervision with dme prn (Progressing) Start: 01/03/24 Expected End: 01/10/24 Increase toileting to supervision with dme prn (Progressing) Start: 01/03/24 Expected End: 01/10/24 pt. to apply ec/ws techniques without cues to all mobility/transfer/adl to decrease fatigue/promoteefficient use of energy toward completion of functional tasks. (Progressing) Start: 01/03/24 Expected End: 01/10/24 * Christina Orourke, PT - 01/03/2024 2:39 PM EST Physical Therapy Physical Therapy Evaluation Patient Name: Kassandra Hankins [id number] Today's Date: 01/03/2024 Time Calculation Start Time: 1148 Stop Time: 1200 Time Calculation (min): 12 min Assessment/Plan PT Assessment PT Assessment Results: Decreased endurance, Decreased mobility Rehab Prognosis: Good End of Session Communication: Bedside nurse End of Session Patient Position: Up in chair, Alarm off, not on at start of session IP OR SWING BED PT PLAN Inpatient or Swing Bed: Inpatient PT Plan Treatment/Interventions: Bed mobility, Transfer training, Gait training, Stair training, Strengthening, Endurance training, Therapeutic exercise, Therapeutic activity PT Plan: Ongoing PT PT Frequency: 3 times per week PT Discharge Recommendations: No PT needed after discharge PT - OK to Discharge: Yes Subjective Current Problem: Patient Active Problem List Diagnosis Stress incontinence, female Vulvar dystrophy Overactive bladder Hypercholesterolemia Exertional shortness of breath Eczema Dry skin Depression with anxiety Exercise-induced angina (CMS-HCC) Closed fracture of multiple ribs of right side, initial encounter General Visit Information: General Reason for Referral: PT eval and treat; R rib fractures 5th and 6th rib, Mechanical fall m Acute hypoxic respiratory failure requiring supplemental airvo, R shoulder pain after fall Referred By: Cristiana Past Medical History Relevant to Rehab: interstitial lung disease, hyperlipidemia, asthma, COPD, depression and anxiety Patient Position Received: Up in chair, Alarm off, not on at start of session General Comment: Pt sitting in chair upon entering, agreeable to PT. Mobility limited by airvo thisdate. Home Living: Home Living Home Living Comments: Pt lives with sister and nephew in a house with bedroom on second floor. Fullbathroom on second floor. 1 MARTIN with rail. Walk in shower with grab bar, seat and hand held shower hose. Elevated toilet. Owns a cane Prior Level of Function: Prior Function Per Pt/Caregiver Report Prior Function Comments: IND ADLs, IND IADLs, IND ambulation without device. Has dog. (+) driving, retired Precautions: Precautions Medical Precautions: Fall precautions Precautions Comment: rib fractures, no surgical intervention per surgery, telemetry, airvo 50/50 Vital Signs: Vital Signs Vitals Session: (VSS thorughout session, brief dip in SPO2 down 88% after mobility but recovers quickly with rest) Objective Pain: Pain Assessment Pain Assessment: (06/22 right side pain, RN aware, pt medicated prior to session) Cognition: Cognition Overall Cognitive Status: Within Functional Limits General Assessments: Activity Tolerance Endurance: Endurance does not limit participation in activity Early Mobility/Exercise Safety Screen: Proceed with mobilization - No exclusion criteria met Sensation Light Touch: No apparent deficits Strength Strength Comments: BLE WNL for strength and ROM Static Sitting Balance Static Sitting-Level of Assistance: Independent Dynamic Sitting Balance Dynamic Sitting-Level of Assistance: Independent Static Standing Balance Static Standing-Level of Assistance: Distant supervision Dynamic Standing Balance Dynamic Standing-Level of Assistance: Close supervision Functional Assessments: Bed Mobility Bed Mobility: (pt sitting in chair beginning and end of session) Transfers Transfer: (sit to stand with SBA with no device) Ambulation/Gait Training Ambulation/Gait Training Performed: (Pt ambulates forward and backward in room x 10 ft total with no device with SBA with no acute LOB. Pt completes marching in place x 10 reps with SBA. No major gait deviations noted. Distance limited by airvo) Outcome Measures: [facility] Basic Mobility Turning from your back to your side while in a flat bed without using bedrails: A little Moving from lying on your back to sitting on the side of a flat bed without using bedrails: A little Moving to and from bed to chair (including a wheelchair): A little Standing up from a chair using your arms (e.g. wheelchair or bedside chair): A little To walk in hospital room: A little Climbing 3-5 steps with railing: Total Basic Mobility - Total Score: 16 FSS-ICU Ambulation: Walks <50 feet with any assistance x1 or walks any distance with assistance x2 people Rolling: Supervision or set-up only Sitting: Supervision or set-up only Transfer [id number]: Supervision or set-up only Transfer [id number]: Supervision or set-up only Total Score: 21 ICU Mobility Screen Early Mobility/Exercise Safety Screen: Proceed with mobilization - No exclusion criteria met ICU Mobility Scale: Walking with assistance of 1 person E = Exercise and Early Mobility Early Mobility/Exercise Safety Screen: Proceed with mobilization - No exclusion criteria met ICU Mobility Scale: Walking with assistance of 1 person Goals: Encounter Problems Encounter Problems (Active) PT Problem PT Goal 1 STG - Pt will amb >100' using no device with IND (Progressing) Start: 01/03/24 Expected End: 01/17/24 PT Goal 2 STG - Pt will navigate 4-8 stairs using rail with IND (Progressing) Start: 01/03/24 Expected End: 01/17/24 PT Goal 3 STG - Pt will transfer STS with IND (Progressing) Start: 01/03/24 Expected End: 01/17/24 Pain - Adult Education Documentation Mobility Training, taught by Christina Orourke PT at 01/03/2024 2:38 PM. Learner: Patient Readiness: Acceptance Method: Explanation Response: Verbalizes Understanding Education Comments No comments found. documented in this [facility] Work Phone: 1(828) 460-385011-22-2024 Hospital course Narrative* Parris Brito, 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 - 01/05/2024 11:28 AM EST Discharge Diagnosis Closed fracture of multiple ribs of right side, initial encounter Issues Requiring Follow-Up Patient needs to follow up with her Hatchery Man as soon as she is able to get an appointment since she was started on O2 in the hospital. Test Results Pending At Discharge Pending Labs No current pending labs. Hospital Course Kassandra Smith is a 68-year-old female with a PMH of asthma, COPD, interstitial lung disease (frombirds, biopsy confirmed - follows with [facility]), depression/anxiety, overactive bladder, and HLD. She presented to the ED on 01/01 with complaints of right chest/rib pain as well as right shoulder pain following a fall from standing on 12/29. -head strike, -LOC. She had been walking her dog when he pulled and she fell over landing on her right side on the sidewalk. The patient states that the pain did not get any better and she was experiencing some shortness of breath, therefore, she decided to come to the ED. Upon arrival, the patient's SpO2 was 76% on room air. Once patient was in an ED bed, she was placed on Airvo. CT with nondisplaced right 5th and 6th rib fractures. Admitted to trauma service and was in ICU for High flow O2. Multimodal pain management initiated and patient had improving respiratory status. Transferred to [facility] on hospital day 3 and was weaned to 6L NC. On hospital day 4 (day of discharge) she was weaned to 4L NC. Both medicine and pulmonology consults had nothing further to add. Prescription for home O2 sent and set up at patient's house. On day of discharge all vital signs, laboratory data, and physical exam findings were reviewed and patient was deemed appropriate for hospital discharge. At the time of discharge, patient's pain was controlled with oral analgesia, patient was urinating, having BMs, sleeping, and eating well. Patient was discharged home with scripts and follow up appointment recommendations. Discharge plan was discussed with the patient and all of the patient's questions were answered. Patient verbalized understanding of discharge instructions and was able to perform read-back technique. Pertinent Physical Exam At Time of Discharge Physical Exam Constitutional: General: She is not in acute distress. Appearance: She is normal weight. HENT: Head: Normocephalic. Nose: Nose normal. Mouth/Throat: Mouth: Mucous membranes are moist. Eyes: General: No scleral icterus. Pupils: Pupils are equal, round, and reactive to light. Cardiovascular: Rate and Rhythm: Normal rate and regular rhythm. Pulses: Normal pulses. Heart sounds: No murmur heard. Pulmonary: Effort: Pulmonary effort is normal. Breath sounds: Rales (Bibasilar crackles still) present. Comments: Tender to palpate anterior chest on right side - one tiny area of red bruising underneathbra line in front 4L NC Abdominal: General: Bowel sounds are normal. There is no distension. Palpations: Abdomen is soft. Tenderness: There is no abdominal tenderness. Musculoskeletal: Right lower leg: No edema. Left lower leg: No edema. Neurological: Mental Status: She is alert and oriented to person, place, and time. Psychiatric: Behavior: Behavior normal. Home Medications Medication List START taking these medications acetaminophen 500 mg tablet; Commonly known as: Tylenol; Take 2 tablets (1,000 mg) by mouth every 6 hours for 7 days. cyclobenzaprine 5 mg tablet; Commonly known as: Flexeril; Take 1 tablet (5 mg) by mouth 3 times a day as needed for muscle spasms. gabapentin 300 mg capsule; Commonly known as: Neurontin; Take 1 capsule (300 mg) by mouth 3 times a day for 7 days. ibuprofen 600 mg tablet; Take 1 tablet (600 mg) by mouth 3 times a day for 7 days. Take with Food oxyCODONE 5 mg immediate release tablet; Commonly known as: Roxicodone; Take 1 tablet (5 mg) by mouth every 6 hours if needed for severe pain (7 - 10). oxygen gas therapy; Commonly known as: O2; Inhale 1 each continuously. polyethylene glycol 17 gram packet; Commonly known as: Glycolax, Miralax; Take 17 g by mouth 2 times a day as needed (If Constipated and no BM in 2 days). CONTINUE taking these medications * albuterol 90 mcg/actuation inhaler * albuterol 2.5 mg /3 mL (0.083 %) nebulizer solution atorvastatin 80 mg tablet; Commonly known as: Lipitor; Take 1 tablet (80 mg) by mouth once daily. buPROPion XL 150 mg 24 hr tablet; Commonly known as: Wellbutrin XL; Take 1 tablet (150 mg) by mouth once daily in the morning. Do not crush, chew, or split. citalopram 40 mg tablet; Commonly known as: CeleXA; Take 1 tablet (40 mg) by mouth once daily. fluticasone propion-salmeteroL 230-21 mcg/actuation inhaler; Commonly known as: Advair HFA; Inhale 2 puffs 2 times a day. Rinse mouth with water after use to reduce aftertaste and incidence of candidiasis. Do not swallow. tolterodine LA 2 mg 24 hr capsule; Commonly known as: Detrol LA; Take 1 capsule (2 mg) by mouth once daily. Do not crush, chew, or split. * This list has 2 medication(s) that are the same as other medications prescribed for you. Read the directions carefully, and ask your doctor or other care provider to review them with you. ASK your doctor about these medications oxybutynin 5 mg tablet; Commonly known as: Ditropan; Take 1 tablet (5 mg) by mouth 3 times a day. Outpatient Follow-Up No future appointments. [facility] Work Phone: 1(501) 590-836111-22-2024 Nurse Note* Roxanne Clark RN - 01/05/2024 10:53 AM EST Pulse ox 85% room air rest Pulse ox 89% 4l nasal cannula rest [facility] Work Phone: 1(163) 864-943811-22-2024 Nurse Note* Roxanne Clark RN - 01/05/2024 10:53 AM EST Pulse ox 85% room air rest Pulse ox 89% 4l nasal cannula rest * Karthikeyan Barrera RN - 01/04/2024 3:25 AM EST Report called to Radha on 6 medical. Patient aware of transfer. Belongings gathered. * Karthikeyan Barrera RN - 01/03/2024 1:00 PM EST Patient to Xray via wheelchair with O2 non rebreather and escort. [facility] Work Phone: 1(329) 715-638711-21-2024 Plan of care note* Care Plan - Karthikeyan Barrera RN - 01/04/2024 9:54 AM EST The patient's goals for the shift include The clinical goals for the shift include progressing Over the shift, the patient did not make progress toward the following goals. Barriers to progression include . Recommendations to address these barriers include . [facility] Work Phone: 1(629) 604-665811-21-2024 Miscellaneous Notes* Care Plan - Karthikeyan Barrera RN - 01/04/2024 9:54 AM EST The patient's goals for the shift include The clinical goals for the shift include progressing Over the shift, the patient did not make progress toward the following goals. Barriers to progression include . Recommendations to address these barriers include . * Care Plan - Donna Mayer RN - 01/04/2024 6:47 AM EST Problem: Skin Goal: Decreased wound size/increased tissue granulation at next dressing change 01/04/2024 0646 by Donna Mayer RN Outcome: Progressing 01/04/2024 0646 by Donna Mayer RN Outcome: Progressing Goal: Participates in plan/prevention/treatment measures 01/04/2024 0646 by Donna Mayer RN Outcome: Progressing 01/04/2024 0646 by Donna Mayer RN Outcome: Progressing Goal: Prevent/manage excess moisture 01/04/2024 0646 by Donna Mayer RN Outcome: Progressing 01/04/2024 0646 by Donna Mayer RN Outcome: Progressing Goal: Prevent/minimize sheer/friction injuries 01/04/2024 0646 by Donna Mayer RN Outcome: Progressing 01/04/2024 0646 by Donna Mayer RN Outcome: Progressing Goal: Promote/optimize nutrition 01/04/2024 0646 by Donna Mayer RN Outcome: Progressing 01/04/2024 0646 by Donna Mayer RN Outcome: Progressing Goal: Promote skin healing 01/04/2024 0646 by Donna Mayer RN Outcome: Progressing 01/04/2024 0646 by Donna Mayer RN Outcome: Progressing Problem: Pain Goal: Takes deep breaths with improved pain control throughout the shift 01/04/2024 0646 by Donna Mayer RN Outcome: Progressing 01/04/2024 0646 by Donna Mayer RN Outcome: Progressing Goal: Turns in bed with improved pain control throughout the shift 01/04/2024 0646 by Donna Mayer RN Outcome: Progressing 01/04/2024 06 by Donna Mayer RN Outcome: Progressing Goal: Walks with improved pain control throughout the shift 01/04/2024 0646 by Donna Mayer RN Outcome: Progressing 01/04/2024 0646 by Donna Mayer RN Outcome: Progressing Goal: Performs ADL's with improved pain control throughout shift 01/04/2024 0646 by Donna Mayer RN Outcome: Progressing 01/04/2024 0646 by Donna Mayer RN Outcome: Progressing Goal: Participates in PT with improved pain control throughout the shift 01/04/2024 0646 by Donna Mayer RN Outcome: Progressing 01/04/2024 0646 by Donna Mayer RN Outcome: Progressing Goal: Free from opioid side effects throughout the shift 01/04/2024 0646 by Donna Mayer RN Outcome: Progressing 01/04/2024 0646 by Donna Mayer RN Outcome: Progressing Goal: Free from acute confusion related to pain meds throughout the shift 01/04/2024 0646 by Donna Mayer RN Outcome: Progressing 01/04/2024 0646 by Donna Mayer RN Outcome: Progressing Problem: Safety - Adult Goal: Free from fall injury Outcome: Progressing Problem: Discharge Planning Goal: Discharge to home or other facility with appropriate resources Outcome: Progressing Problem: Chronic Conditions and Co-morbidities Goal: Patient's chronic conditions and co-morbidity symptoms are monitored and maintained or improved Outcome: Progressing The clinical goals for the shift include progressing * Care Plan - Karthikeyan Barrera RN - 01/03/2024 10:19 AM EST The patient's goals for the shift include The clinical goals for the shift include progressing Over the shift, the patient did not make progress toward the following goals. Barriers to progression include . Recommendations to address these barriers include . * Care Plan - Melodie Floers RN - 01/03/2024 4:22 AM EST The patient's goals for the shift include Problem: Skin Goal: Decreased wound size/increased tissue granulation at next dressing change Outcome: Progressing Goal: Participates in plan/prevention/treatment measures Outcome: Progressing Goal: Prevent/manage excess moisture Outcome: Progressing Goal: Prevent/minimize sheer/friction injuries Outcome: Progressing Goal: Promote/optimize nutrition Outcome: Progressing Goal: Promote skin healing Outcome: Progressing Problem: Pain Goal: Takes deep breaths with improved pain control throughout the shift Outcome: Progressing Goal: Turns in bed with improved pain control throughout the shift Outcome: Progressing Goal: Walks with improved pain control throughout the shift Outcome: Progressing Goal: Performs ADL's with improved pain control throughout shift Outcome: Progressing Goal: Participates in PT with improved pain control throughout the shift Outcome: Progressing Goal: Free from opioid side effects throughout the shift Outcome: Progressing Goal: Free from acute confusion related to pain meds throughout the shift Outcome: Progressing The clinical goals for the shift include Decrease pain and work of breathing * ED Procedure Note - Nilsa Quintero DO - 01/02/2024 7:56 PM ESTAssociated Order(s): Critical Care Procedure Critical Care Performed by: Nilsa Quintero DO Authorized by: Nilsa Quintero DO Critical care provider statement: Critical care time (minutes): 37 Critical care time was exclusive of: Separately billable procedures and treating other patients andteaching time Critical care was necessary to treat or prevent imminent or life-threatening deterioration of the following conditions: Trauma Critical care was time spent personally by me on the following activities: Ordering and performing treatments and interventions, ordering and review of laboratory studies, ordering and review of radiographic studies, pulse oximetry, review of old charts, re-evaluation of patient's condition, examination of patient, evaluation of patient's response to treatment and discussions with consultants Care discussed with: admitting provider Nilsa Quintero DO 01/03/24 0029 documented in this [facility] Work Phone: 1(734) 347-452711-21-2024 Plan of care note* Care Plan - Donna Mayer RN - 01/04/2024 6:47 AM EST Problem: Skin Goal: Decreased wound size/increased tissue granulation at next dressing change 01/04/2024 0646 by Donna Mayer RN Outcome: Progressing 01/04/2024 0646 by Donna Mayer RN Outcome: Progressing Goal: Participates in plan/prevention/treatment measures 01/04/2024 0646 by Donna Mayer RN Outcome: Progressing 01/04/2024 0646 by Donna Mayer RN Outcome: Progressing Goal: Prevent/manage excess moisture 01/04/2024 0646 by Donna Mayer RN Outcome: Progressing 01/04/2024 0646 by Donna Mayer RN Outcome: Progressing Goal: Prevent/minimize sheer/friction injuries 01/04/2024 0646 by Donna Mayer RN Outcome: Progressing 01/04/2024 0646 by Donna Mayer RN Outcome: Progressing Goal: Promote/optimize nutrition 01/04/2024 0646 by Donna Mayer RN Outcome: Progressing 01/04/2024 0646 by Donna Mayer RN Outcome: Progressing Goal: Promote skin healing 01/04/2024 0646 by Donna Mayer RN Outcome: Progressing 01/04/2024 0646 by Donna Mayer RN Outcome: Progressing Problem: Pain Goal: Takes deep breaths with improved pain control throughout the shift 01/04/2024 0646 by Donna Mayer RN Outcome: Progressing 01/04/2024 0646 by Donna Mayer RN Outcome: Progressing Goal: Turns in bed with improved pain control throughout the shift 01/04/2024 0646 by Donna Mayer RN Outcome: Progressing 01/04/2024 0646 by Donna Mayer RN Outcome: Progressing Goal: Walks with improved pain control throughout the shift 01/04/2024 0646 by Donna Mayer RN Outcome: Progressing 01/04/2024 0646 by Donna Mayer RN Outcome: Progressing Goal: Performs ADL's with improved pain control throughout shift 01/04/2024 0646 by Donna Mayer RN Outcome: Progressing 01/04/2024 0646 by Donna Mayer RN Outcome: Progressing Goal: Participates in PT with improved pain control throughout the shift 01/04/2024 0646 by Donna Mayer RN Outcome: Progressing 01/04/2024 0646 by Donna Mayer RN Outcome: Progressing Goal: Free from opioid side effects throughout the shift 01/04/2024 0646 by Donna Mayer RN Outcome: Progressing 01/04/2024 0646 by Donna Myaer RN Outcome: Progressing Goal: Free from acute confusion related to pain meds throughout the shift 01/04/2024 0646 by Donna Mayer RN Outcome: Progressing 01/04/2024 0646 by Donna Mayer RN Outcome: Progressing Problem: Safety - Adult Goal: Free from fall injury Outcome: Progressing Problem: Discharge Planning Goal: Discharge to home or other facility with appropriate resources Outcome: Progressing Problem: Chronic Conditions and Co-morbidities Goal: Patient's chronic conditions and co-morbidity symptoms are monitored and maintained or improved Outcome: Progressing The clinical goals for the shift include progressing [facility]11-21-2024 Nurse Note* Karthikeyan Barrera RN - 01/04/2024 3:25 AM EST Report called to Radha on 6 medical. Patient aware of transfer. Belongings gathered. [facility]11-20-2024 History and physical note* Sofia Wade MD - 01/03/2024 5:18 PM EST Trauma Surgery Attending Note My Acute Care Surgery MYRNA (Advanced Practice Provider) evaluated this patient today. Please see that documentation for details. I saw the patient with the MYRNA today, and personally evaluated and examined the patient. My findings are consistent with those of the MYRNA. Impression: This 68-year-old female with a history of asthma, COPD, interstitial lung disease, suffered a same level fall on the sidewalk on 12/30/2023. The patient presented emergency department last evening secondary to progressive pain. She is foundto be hypoxic. She was admitted to the trauma service for further evaluation and treatment. Complete radiographic workup including CT scan of the head, chest, abdomen, pelvis, cervical spine,and plain x-rays of the right shoulder was completed. The only significant injury or rib fractures anteriorly of the right fifth and sixth ribs. On examination, the patient has scattered crackles at the bases. Right chest wall reveals anterior tenderness. There is no evidence of ecchymosis hematoma or crepitus. Overall impression is same level fall with right anterior fifth and sixth rib fractures with hypoxia. The patient is on 50% AIR VO2. Plan: Patient be admitted to the trauma surgery service Medicine and pulmonology consultations Maintain O2 saturation with supplemental oxygen Multimodal analgesia Occupational and physical therapy Pulmonary toilet Continuous pulse oximetry [facility] Work Phone: 1(302) 494-780111-20-2024 History and physical note* Sofia Wade MD - 01/03/2024 5:18 PM EST Trauma Surgery Attending Note My Acute Care Surgery MYRNA (Advanced Practice Provider) evaluated this patient today. Please see that documentation for details. I saw the patient with the MYRNA today, and personally evaluated and examined the patient. My findings are consistent with those of the MYRNA. Impression: This 68-year-old female with a history of asthma, COPD, interstitial lung disease, suffered a same level fall on the sidewalk on 12/30/2023. The patient presented emergency department last evening secondary to progressive pain. She is foundto be hypoxic. She was admitted to the trauma service for further evaluation and treatment. Complete radiographic workup including CT scan of the head, chest, abdomen, pelvis, cervical spine,and plain x-rays of the right shoulder was completed. The only significant injury or rib fractures anteriorly of the right fifth and sixth ribs. On examination, the patient has scattered crackles at the bases. Right chest wall reveals anterior tenderness. There is no evidence of ecchymosis hematoma or crepitus. Overall impression is same level fall with right anterior fifth and sixth rib fractures with hypoxia. The patient is on 50% AIR VO2. Plan: Patient be admitted to the trauma surgery service Medicine and pulmonology consultations Maintain O2 saturation with supplemental oxygen Multimodal analgesia Occupational and physical therapy Pulmonary toilet Continuous pulse oximetry * Hawa Zendejas APRN-DETAIL SERGEANT - 01/03/2024 12:28 AM EST Trauma History and Physical Subjective Patient is a 68 y.o. female admitted on 01/02/2024 8:38 PM Activation Date: 01/02/24 Activation Time: 2046 Trauma Activation Level: limited Date of injury: 12/30/23 Time of injury: morning HPI: Kassandra Smith is a 68-year-old female with a PMH of asthma, COPD, depression/anxiety, overactive bladder, HLD, and interstitial lung disease. Patient presented to the ED with complaints of right chest/rib pain with shortness of breath, as well as right shoulder pain. Patient states that she was walking her dog on Monday morning and the dog pulled away causing her to fall on her right side on the sidewalk. The patient is unsure if she hit her head or not. Patient is not on any blood thinnersother than ASA 81 mg. The patient states that the pain did not get any better and she was experiencing some shortness of breath, therefore, she decided to come to the ED. Upon arrival, the patient's SpO2 was 76% on room air. Once patient was in an ED bed, she was placed on Airvo. Patient does not wear oxygen at home. Patient denies any lightheadedness, dizziness, palpitations, fever/chills or cough. In the ED, patient had CT A/P, CT cervical spine, CT angio chest, and CT head completed. All were negative for any acute findings except for the CT angio chest, which showed subtle minimally displaced/deformed right anterior fifth and sixth rib fractures with no sizable pneumothorax identified. TheCT chest also showed hazy airspace opacities that could be related to air trapping, infection, or inflammatory changes. Patient did have some mild leukocytosis of 12.0 on her ED lab work. Patient also had an elevated alkaline phosphatase at 170, and a slightly elevated troponin at 15. Mechanism of injury: fall Method of Arrival: private vehicle Prior to arrival: none PRIMARY SURVEY: Airway: intact Breathing: labored Circulation: pulses intact and equal Disability: GCS 15, A&Ox3 Exposure/Environment: clothing removed, injuries noted Procedures: none SECONDARY SURVEY: Past Medical History: Diagnosis Date Asthma ([facility]) May 2021 Vaginal discharge 10/11/2022 Vaginal itching 10/11/2022 Past Surgical History: Procedure Laterality Date SECTION, CLASSIC 11/11/2015 Section SECTION, LOW TRANSVERSE July 1975 CHOLECYSTECTOMY GALLBLADDER SURGERY 11/11/2015 Gallbladder Surgery (Not in a hospital admission) Patient has no known allergies. Social History Tobacco Use Smoking status: Former Current packs/day: 1.00 Average packs/day: 1 pack/day for 10.0 years (10.0 ttl pk-yrs) Types: Cigarettes Smokeless tobacco: Never Vaping Use Vaping status: Never Used Substance Use Topics Alcohol use: Never Drug use: Never Family History Problem Relation Name Age of Onset Diabetes Mother Darby Heart disease Mother Darby Hypertension Mother Darby Alcohol abuse Father Raleigh Diabetes Father Raleigh Alcohol abuse Brother Bryant Cancer Mother's Sister Liliana Objective Vitals: Most Recent: Vitals: 01/02/24 2230 BP: 137/68 Pulse: 92 Resp: (!) 22 Temp: SpO2: 95% 24hr Min/Max: Temp Min: 37.4 C (99.3 F) Max: 37.4 C (99.3 F) Pulse Min: 84 Max: 97 BP Min: 133/64 Max: 137/68 Resp Min: 17 Max: 24 SpO2 Min: 76 % Max: 98 % Hemodynamic parameters for last 24 hours: No intake/output data recorded. Physical exam: NEURO: A&O x3, GCS, CN II-XII intact, MORLEY equally, muscle strength 5/5, no sensory deficits HEENT: Head: NC/AT, No lacerations or abrasions, no bony step offs, midface stable. Eye: PERRL, EOMI. Ears: Canals without blood or CSF drainage, TMs clear, external ear without laceration. Nose: Nasal septum midline, no crepitus or septal hematoma. Throat: Oral mucosa and tongue without lacerations, teeth in place. NECK: No cervical spine tenderness or step offs, no lacerations or abrasions, tracheal midline. No JVD. RESPIRATORY/CHEST: No abrasions, contusions, crepitus to palpation. Tenderness to palpation over anterior aspect of right 5th and 6th ribs, just under her breast. Non-labored, equal chest expansion, CTAB, no wheezes/rhonchi.Unable to take a full deep breath without pain. Currently on Airvo CV: RRR, __ on tele, S1 and S2, no M/R/G. Pulses bilateral: 2+ radial, 2+DP, 2+PT, 2+femoral and 2+carotid. Cap refill < 2sec ABDOMEN: soft, nontender, nondistended, +BS. No scars, abrasions or lacerations. PELVIS: Stable to AP and lateral compression BACK/SPINE: No T/L spine tenderness, no step offs or deformity noted. No abrasions, hematomas or lacerations noted. EXTREMITIES: No edema or cyanosis. Normal ROM w/o pain to LUE and BLE. RUE with limited ROM due to shoulder pain. No deformities, lacerations or contusions. SKIN: warm and dry, no rash or lesions. Lab/Radiology/Diagnostic Review: Results for orders placed or performed during the hospital encounter of 01/02/24 (from the past 24 hours) CBC and Auto Differential Result Value Ref Range WBC 12.0 (H) 4.4 - 11.3 x10*3/uL nRBC 0.0 0.0 - 0.0 /100 WBCs RBC 5.03 4.00 - 5.20 x10*6/uL Hemoglobin 16.8 (H) 12.0 - 16.0 g/dL Hematocrit 50.8 (H) 36.0 - 46.0 % MCV 101 (H) 80 - 100 fL MCH 33.4 26.0 - 34.0 pg MCHC 33.1 32.0 - 36.0 g/dL RDW 13.2 11.5 - 14.5 % Platelets 220 150 - 450 x10*3/uL Neutrophils % 79.0 40.0 - 80.0 % Immature Granulocytes %, Automated 0.4 0.0 - 0.9 % Lymphocytes % 10.4 13.0 - 44.0 % Monocytes % 6.2 2.0 - 10.0 % Eosinophils % 3.2 0.0 - 6.0 % Basophils % 0.8 0.0 - 2.0 % Neutrophils Absolute 9.50 (H) 1.20 - 7.70 x10*3/uL Immature Granulocytes Absolute, Automated 0.05 0.00 - 0.70 x10*3/uL Lymphocytes Absolute 1.25 1.20 - 4.80 x10*3/uL Monocytes Absolute 0.74 0.10 - 1.00 x10*3/uL Eosinophils Absolute 0.38 0.00 - 0.70 x10*3/uL Basophils Absolute 0.10 0.00 - 0.10 x10*3/uL Comprehensive Metabolic Panel Result Value Ref Range Glucose 91 74 - 99 mg/dL Sodium 139 136 - 145 mmol/L Potassium 4.3 3.5 - 5.3 mmol/L Chloride 102 98 - 107 mmol/L Bicarbonate 25 21 - 32 mmol/L Anion Gap 16 10 - 20 mmol/L Urea Nitrogen 18 6 - 23 mg/dL Creatinine 1.07 (H) 0.50 - 1.05 mg/dL eGFR 57 (L) >60 mL/min/1.73m*2 Calcium 10.7 (H) 8.6 - 10.3 mg/dL Albumin 4.9 3.4 - 5.0 g/dL Alkaline Phosphatase 170 (H) 33 - 136 U/L Total Protein 9.0 (H) 6.4 - 8.2 g/dL AST 23 9 - 39 U/L Bilirubin, Total 0.8 0.0 - 1.2 mg/dL ALT 17 7 - 45 U/L Magnesium Result Value Ref Range Magnesium 2.29 1.60 - 2.40 mg/dL Troponin I, High Sensitivity, Initial Result Value Ref Range Troponin I, High Sensitivity 3 0 - 13 ng/L Coagulation Screen Result Value Ref Range Protime 12.8 9.8 - 12.8 seconds INR 1.1 0.9 - 1.1 aPTT 29 27 - [address] angio chest for pulmonary embolism Result Date: 01/02/2024 Interpreted By: Beba Rao, STUDY: CT ANGIO CHEST FOR PULMONARY EMBOLISM; CT ABDOMEN PELVIS W IV CONTRAST; 01/02/2024 9:18 pm INDICATION: Signs/Symptoms:Fall from ground-level hypoxic. COMPARISON: None. ACCESSION NUMBER(S): [id number]; [id number] ORDERING CLINICIAN: NILSA QUINTERO TECHNIQUE: Contiguous axial images of the chest were obtained after the intravenous administration of contrast using angiographic PE protocol. Coronal and sagittal reformatted images were reconstructed from the axial data. MIP images were created and reviewed. Axial CT images of the abdomen and pelvis with coronal and sagittal reconstructed images obtained after intravenous administration of . FINDINGS: MEDIASTINUM AND LYMPH NODES: No enlarged intrathoracic or axillary lymph nodes. Small hiatal hernia. No pneumomediastinum. VESSELS: Normal caliber aorta without significant aortic atherosclerosis. Evaluation of the pulmonary arteries is partially limited by contrast bolus and patient body habitus.No definite pulmonary embolism identified to the segmental level. HEART: Normal in size. No significant coronary artery calcifications. No significant pericardial effusion. LUNG, AIRWAYS, AND PLEURA:Scattered hazy and interstitial opacities. Lower lobe bronchiectasis with bronchial wall thickeningand bibasilar consolidative opacities. No sizable pneumothorax or pleural effusion. OSSEOUS STRUCTURES/CHEST WALL: Subtle rib deformities noted along the anterior right 5th and 6th ribs (annotated onseries 401). Degenerative changes of the thoracic spine. The sternum appears intact. ABDOMEN: BONES: No acute osseous abnormality. Multilevel degenerative changes. Subtle deformity of the distal sacrum (series 503, image 62) which is age indeterminate. ABDOMINAL WALL: Fat containing left inguinal he rnia. LIVER: 19.3 cm, enlarged. BILE DUCTS: Biliary ductal dilatation with the common bile duct measuring up to 11 mm and mild central biliary ductal dilatation, within normal limits in the post cholecystectomy state. GALLBLADDER: Surgically absent. PANCREAS: Within normal limits. SPLEEN: Within normal limits. ADRENALS: Within normal limits. KIDNEYS AND URETERS: Symmetric renal enhancement. No hydronephrosis or perinephric fluid collection. No hydroureter. VESSELS: Atherosclerotic calcifications without aneurysmal dilatation seen. RETROPERITONEUM: Within normal limits. PELVIS: REPRODUCTIVE ORGANS: No pelvic mass or significant free pelvic fluid. BLADDER: Within normal limits. BOWEL: Significant colonic stool burden. The distal colon is decompressed partially limiting evaluation. Diverticulosis without CT evidence of acute diverticulitis. PERITONEUM: No ascites or free air, no fluid collection. Partially limited evaluation of the pulmonary arteries otherwise no discrete pulmonary embolism identified to the segmental level. Subtle minimally displaced/deformed right anterior 5th and 6th rib fractures. No sizable pneumothorax is identified. Hazy parenchymal airspace opacities which could be r elated to air trapping, infection or inflammatory changes. Bibasilar are consolidative opacities with bronchiectasis and bronchial wall thickening may be related to aspiration pneumonitis or infection. No acute abnormality of the abdomen and pelvis. Chronic changes including hepatomegaly, significant stool burden and additional findings as detailed. MACRO: None. Signed by: Beba Rao 01/02/2024 10:01 PM Dictation workstation: [id number] CT abdomen pelvis w IV contrast Result Date: 01/02/2024 Interpreted By: Beba Rao, STUDY: CT ANGIO CHEST FOR PULMONARY EMBOLISM; CT ABDOMEN PELVIS W IV CONTRAST; 01/02/2024 9:18 pm INDICATION: Signs/Symptoms:Fall from ground-level hypoxic. COMPARISON: None. ACCESSION NUMBER(S): [id number]; [id number] ORDERING CLINICIAN: NILSA QUINTERO TECHNIQUE: Contiguous axial images of the chest were obtained after the intravenous administration of contrast using angiographic PE protocol. Coronal and sagittal reformatted images were reconstructed from the axial data. MIP images were created and reviewed. Axial CT images of the abdomen and pelvis with coronal and sagittal reconstructed images obtained after intravenous administration of . FINDINGS: MEDIASTINUM AND LYMPH NODES: No enlarged intrathoracic or axillary lymph nodes. Small hiatal hernia. No pneumomediastinum. VESSELS: Normal caliber aorta without significant aortic atherosclerosis. Evaluation of the pulmonary arteries is partially limited by contrast bolus and patient body habitus.No definite pulmonary embolism identified to the segmental level. HEART: Normal in size. No significant coronary artery calcifications. No significant pericardial effusion. LUNG, AIRWAYS, AND PLEURA:Scattered hazy and interstitial opacities. Lower lobe bronchiectasis with bronchial wall thickeningand bibasilar consolidative opacities. No sizable pneumothorax or pleural effusion. OSSEOUS STRUCTURES/CHEST WALL: Subtle rib deformities noted along the anterior right 5th and 6th ribs (annotated onseries 401). Degenerative changes of the thoracic spine. The sternum appears intact. ABDOMEN: BONES: No acute osseous abnormality. Multilevel degenerative changes. Subtle deformity of the distal sacrum (series 503, image 62) which is age indeterminate. ABDOMINAL WALL: Fat containing left inguinal he rnia. LIVER: 19.3 cm, enlarged. BILE DUCTS: Biliary ductal dilatation with the common bile duct measuring up to 11 mm and mild central biliary ductal dilatation, within normal limits in the post cholecystectomy state. GALLBLADDER: Surgically absent. PANCREAS: Within normal limits. SPLEEN: Within normal limits. ADRENALS: Within normal limits. KIDNEYS AND URETERS: Symmetric renal enhancement. No hydronephrosis or perinephric fluid collection. No hydroureter. VESSELS: Atherosclerotic calcifications without aneurysmal dilatation seen. RETROPERITONEUM: Within normal limits. PELVIS: REPRODUCTIVE ORGANS: No pelvic mass or significant free pelvic fluid. BLADDER: Within normal limits. BOWEL: Significant colonic stool burden. The distal colon is decompressed partially limiting evaluation. Diverticulosis without CT evidence of acute diverticulitis. PERITONEUM: No ascites or free air, no fluid collection. Partially limited evaluation of the pulmonary arteries otherwise no discrete pulmonary embolism identified to the segmental level. Subtle minimally displaced/deformed right anterior 5th and 6th rib fractures. No sizable pneumothorax is identified. Hazy parenchymal airspace opacities which could be r elated to air trapping, infection or inflammatory changes. Bibasilar are consolidative opacities with bronchiectasis and bronchial wall thickening may be related to aspiration pneumonitis or infection. No acute abnormality of the abdomen and pelvis. Chronic changes including hepatomegaly, significant stool burden and additional findings as detailed. MACRO: None. Signed by: Beba Rao 01/02/2024 10:01 PM Dictation workstation: [id number] CT head wo IV contrast Result Date: 01/02/2024 Interpreted By: Beba Rao, STUDY: CT HEAD WO IV CONTRAST; CT CERVICAL SPINE WO IV CONTRAST; 01/02/2024 9:18 pm INDICATION: Signs/Symptoms:fall. COMPARISON: None. ACCESSION NUMBER(S): [id number]; [id number] ORDERING CLINICIAN: NILSA QUINTERO TECHNIQUE: Noncontrast CT images of head. Axial noncontrast CT images of the cervical spine with coronal and sagittal reconstructed images. FINDINGS: BRAIN PARENCHYMA: Hylton-white matter interfaces are preserved. No mass effect or midline shift. Generalized parenchymal volume loss noted with concordant ventricular enlargement. Non-specific white matter changes noted, which may be related to small vessel disease. HEMORRHAGE: No acute intracranial hemorrhage. VENTRICLES and EXTRA-AXIAL SPACES: Normal size. EXTRACRANIAL SOFT TISSUES: Within normal limits. PARANASAL SINUSES/MASTOIDS: The visualized paranasal sinuses and mastoid air cells are aerated. CALVARIUM: No depressed skull fracture. No destructive osseous lesion. OTHER FINDINGS: None. CERVICAL SPINE: ALIGNMENT: Normal. VERTEBRAE: No acute fracture. SPINAL CANAL: Degenerative changes facet and uncinate arthropathy, as well as disc space narrowing and end plate hypertrophy. [id number] right foraminal narrowing C4-C5. [id number] bilateral foraminal narrowing C5-C6. No critical canal stenosis. PREVERTEBRAL SOFT TISSUES: No prevertebral soft tissue swelling. LUNG APICES: Biapical ground-glass interstitial airspace approximately. OTHER FINDINGS: None. No acute intracranial hemorrhage or mass effect. No acute fracture or traumatic subluxation of the cervical spine. MACRO: None. Signed by: Beba Rao 01/02/2024 9:49 PM Dictation workstation: [id number] CT cervical spine wo IV contrast Result Date: 01/02/2024 Interpreted By: Beba Rao, STUDY: CT HEAD WO IV CONTRAST; CT CERVICAL SPINE WO IV CONTRAST; 01/02/2024 9:18 pm INDICATION: Signs/Symptoms:fall. COMPARISON: None. ACCESSION NUMBER(S): [id number]; [id number] ORDERING CLINICIAN: NILSA QUINTERO TECHNIQUE: Noncontrast CT images of head. Axial noncontrast CT images of the cervical spine with coronal and sagittal reconstructed images. FINDINGS: BRAIN PARENCHYMA: Hylton-white matter interfaces are preserved. No mass effect or midline shift. Generalized parenchymal volume loss noted with concordant ventricular enlargement. Non-specific white matter changes noted, which may be related to small vessel disease. HEMORRHAGE: No acute intracranial hemorrhage. VENTRICLES and EXTRA-AXIAL SPACES: Normal size. EXTRACRANIAL SOFT TISSUES: Within normal limits. PARANASAL SINUSES/MASTOIDS: The visualized paranasal sinuses and mastoid air cells are aerated. CALVARIUM: No depressed skull fracture. No destructive osseous lesion. OTHER FINDINGS: None. CERVICAL SPINE: ALIGNMENT: Normal. VERTEBRAE: No acute fracture. SPINAL CANAL: Degenerative changes facet and uncinate arthropathy, as well as disc space narrowing and end plate hypertrophy. Pmon-tx-pjdeweej right foraminal narrowing C4-C5. Dwbp-ob-ggxtfzed bilateral foraminal narrowing C5-C6. No critical canal stenosis. PREVERTEBRAL SOFT TISSUES: No prevertebral soft tissue swelling. LUNG APICES: Biapical ground-glass interstitial airspace approximately. OTHER FINDINGS: None. No acute intracranial hemorrhage or mass effect. No acute fracture or traumatic subluxation of the cervical spine. MACRO: None. Signed by: Beba Rao 01/02/2024 9:49 PM Dictation workstation: [id number] XR chest 1 view Result Date: 01/02/2024 Interpreted By: Kristofer Loyd, STUDY: XR CHEST 1 VIEW; 01/02/2024 9:03 pm INDICATION: Signs/Symptoms:Hypoxia. COMPARISON: None. ACCESSION NUMBER(S): [id number] ORDERING CLINICIAN: NILSA QUINTERO FINDINGS: The cardiomediastinal silhouette and pulmonary vasculature are within normal limits. Mild bibasilar atelectasis. No consolidation, pleural effusion or pneumothorax. No acute cardiopulmonary process. Mild bibasilar atelectasis. MACRO: None. Signed by: Kristofer Loyd 01/02/2024 9:21 PM Dictation workstation: [id number] Assessment /Plan Kassandra Smith is a 68-year-old female with a PMH of asthma, COPD, depression/anxiety, overactive bladder, HLD, and interstitial lung disease. Patient presented to the ED with complaints of right chest/rib pain, as well as right shoulder pain. Patient states that she was walking her dog on Monday morning and the dog pulled away causing her to fall on her right side on the sidewalk. The patientis unsure if she hit her head or not. Patient is not on any blood thinners other than ASA 81 mg. The patient states that the pain did not get any better and she was experiencing some shortness of breath, therefore, she decided to come to the ED. Upon arrival, the patient's SpO2 was 76% on room air.Once patient was in an ED bed, she was placed on Airvo. In the ED, patient had CT A/P, CT cervical spine, CT angio chest, and CT head completed. All were negative for any acute findings except for the CT angio chest, which showed subtle minimally displaced/deformed right anterior fifth and sixth rib fractures with no sizable pneumothorax identified. TheCT chest also showed hazy airspace opacities that could be related to air trapping, infection, or inflammatory changes. Patient will be admitted to the trauma service with consults to respiratory therapy, internal medicine/PCP Dr. Escobedo, and pulmonology. List of Injuries: #Right 5th and 6th rib fractures #Right shoulder pain #Acute hypoxia #Right 5th and 6th rib fractures - Admit to trauma service on stepdown unit - No surgical intervention indicated - Regular diet - Multimodal pain management > Scheduled Tylenol > Scheduled Ibuprofen > Scheduled gabapentin > Lidocaine patch > Scheduled mag -ox > PRN narcotics - Repeat CXR in AM - Labs in AM - IS every hour - Pulmonary hygiene - Continuous pulse ox - PT/OT #Right shoulder pain - XR ordered-no acute osseous abnormality - Multimodal pain management - PT/OT #Acute hypoxia - On Airvo - Consult respiratory therapy for Airvo management - Consult Pulmonology >patient sees Dr Mckeon at [facility] - Continuous pulse ox Chronic conditions #Asthma/COPD #Interstitial Lung Disease #Depression/Anxiety #Overactive bladder #HLD - Consult PCP/Dr Escobedo for medical management in conjunction with pulmonology - Continue home medications Dispo: Patient not medically ready for discharge. Patient will likely be in the hospital for 2 to 3days, mostly depending on pulmonary function. Patient seen and discussed with attending driver lifter of sanitation truck surgeon Dr. Wade. ALMA Hernandez documented in this [facility] Work Phone: [phone] 131-873311-20-2024 Consult note* Heber Almanzar, - 01/03/2024 1:20 PM EST Consults Reason For Consult Med Mngmt History Of Present Illness Nhi Smith is a 68 y.o. female With past medical history interstitial lung disease, hyperlipidemia, asthma, COPD, depression and anxiety presenting after mechanical fall where her dog pulled her forward and she fell mostly on her right side. Denies hitting her head. She takes aspirin daily but is not on any other blood thinners. She had some difficulty breathing and came to the ED for furtherevaluation. Pulse ox was 76% in the ED. She was placed on Airvo. She has been tachypneic and her blood pressures have been stable for the most part. She does not use any home oxygen. EKG in the ED showed normal sinus rhythm with a rate of [address] changes. Labs show electrolytes largely within normal limits, white blood cell count 10.7. Chest x-ray was unremarkable. CT head was negative for acute fracture. CT abdomen pelvis with IV contrast shows minimally displaced right anterior fifth and sixth rib fractures without pneumothorax. There are bibasilar consolidative opacities present.There is significant colonic stool burden, biliary ductal dilation with common bile duct dilated upto 11 mm, gallbladder surgically absent. No PE. There is chronic hepatomegaly. X-ray of right shoulder was unremarkable. Patient was admitted to trauma service and medicine was consulted for further medical management. Patient currently endorses some shortness of breath and rib pain. Denies any fevers, chills, dizziness, lightheadedness, loss of consciousness. Past Medical History She has a past medical history of Asthma ([facility]) (May 2021), Vaginal discharge (10/11/2022), and Vaginal itching (10/11/2022). Surgical History She has a past surgical history that includes Gallbladder surgery (11/11/2015); section, classic (11/11/2015); Cholecystectomy; and section, low transverse (July 1975). Social History She reports that she has quit smoking. Her smoking use included cigarettes. She has a 10 pack-year smoking history. She has never used smokeless tobacco. She reports that she does not drink alcohol and does not use drugs. Family History Family History Problem Relation Name Age of Onset Diabetes Mother Darby Heart disease Mother Darby Hypertension Mother Darby Alcohol abuse Father Raleigh Diabetes Father Raleigh Alcohol abuse Brother Bryant Cancer Mother's Sister Liliana Allergies Patient has no known allergies. Review of Systems Constitutional: Negative. HENT: Negative. Eyes: Negative. Respiratory: Positive for cough, chest tightness and shortness of breath. Cardiovascular: Negative. Gastrointestinal: Negative. Endocrine: Negative. Genitourinary: Negative. Musculoskeletal: Positive for arthralgias and myalgias. Skin: Positive for color change. Allergic/Immunologic: Negative. Neurological: Negative for dizziness and facial asymmetry. Hematological: Bruises/bleeds easily. Psychiatric/Behavioral: Negative. Physical Exam Constitutional: General: She is not in acute distress. HENT: Head: Normocephalic and atraumatic. Right Ear: External ear normal. Left Ear: External ear normal. Eyes: Extraocular Movements: Extraocular movements intact. Pupils: Pupils are equal, round, and reactive to light. Cardiovascular: Rate and Rhythm: Normal rate and regular rhythm. Pulmonary: Comments: Coarse sounds bilaterally, on Airvo 50 L, 50% FiO2 Abdominal: General: Bowel sounds are normal. Palpations: Abdomen is soft. Musculoskeletal: General: No deformity or signs of injury. Skin: General: Skin is warm and dry. Neurological: General: No focal deficit present. Mental Status: She is alert. Mental status is at baseline. Psychiatric: Mood and Affect: Mood normal. Behavior: Behavior normal. Last Recorded Vitals BP 137/63 (BP Location: Left arm, Patient Position: Lying) Pulse 67 Temp 35.6 C (96.1 F) (Temporal) Resp 17 Wt 90 kg (198 lb 6.6 oz) SpO2 92% Relevant Results XR ribs 4 views bilateral Result Date: 01/03/2024 Interpreted By: Delfino Wallace, STUDY: XR RIBS 4 VIEWS BILATERAL; ; 01/03/2024 1:30 pm INDICATION: Signs/Symptoms:investigate further rib fracture. COMPARISON: None. ACCESSION NUMBER(S): [id number] ORDERING CLINICIAN: SOFIA WADE FINDINGS: Rib series, 7 views There is no evidence of a rib fracture. There is no pneumothorax. There is no airspace disease or effusion. No rib fracture seen MACRO: None Signed by: Delfino Wallace 01/03/2024 1:35 PM Dictation workstation: [id number] ECG 12 lead Result Date: 01/03/2024 Normal sinus rhythm Normal ECG When compared with ECG of 05-DEC-2019 14:27, Questionable change in QRS axis XR chest 1 view Result Date: 01/03/2024 Interpreted By: Jon Méndez, STUDY: XR CHEST 1 VIEW; 01/03/2024 6:34 am INDICATION: Signs/Symptoms:rib fractures. COMPARISON: 01/02/2024 ACCESSION NUMBER(S): [id number] ORDERING CLINICIAN: HAAW ZENDEJAS FINDINGS: CARDIOMEDIASTINAL SILHOUETTE AND VASCULATURE: Cardiac size: Within normal limits . Aortic shadow: Within normal limits. Mediastinal contours: Within normal limits. Pulmonary vasculature: The central vasculature is unremarkable LUNGS: Development of several bands of atelectasis inthe right lower lung. The lungs otherwise are clear. ABDOMEN AND OTHER FINDINGS: No remarkable upper abdominal findings. BONES: There is slight angulation of the lateral aspect of the right 4th rib may be from a remote fracture, as an acute fracture was not evident on the previous day's CT scan. 1. Right lower lung atelectasis. Signed by: Jon Méndez 01/03/2024 8:30 AM Dictation workstation: [id number] XR shoulder right 2+ views Result Date: 01/02/2024 Interpreted By: Kristofer Loyd, STUDY: XR SHOULDER RIGHT 2+ VIEWS; ; 01/02/2024 11:33 pm INDICATION: Signs/Symptoms:right shoulder pain after fall. COMPARISON: None. ACCESSION NUMBER(S): [id number] ORDERING CLINICIAN: HAWA ZENDEJAS FINDINGS: There is no acute fracture. The acromioclavicular joint and glenohumeral joint are intact. The subacromial space is maintained. There is mild glenohumeral joint osteoarthrosis. There is irregularity and sclerosis of the greater tuberosity compatible with rotator cuff tendinosis. No acute osseous abnormality of the right shoulder. MACRO: None. Signed by: Kristofer Loyd 01/02/2024 11:56 PM Dictation workstation: [id number] CT angio chest for pulmonary embolism Result Date: 01/02/2024 Interpreted By: Beba Rao, STUDY: CT ANGIO CHEST FOR PULMONARY EMBOLISM; CT ABDOMEN PELVIS W IV CONTRAST; 01/02/2024 9:18 pm INDICATION: Signs/Symptoms:Fall from ground-level hypoxic. COMPARISON: None. ACCESSION NUMBER(S): [id number]; [id number] ORDERING CLINICIAN: NILSA QUINTERO TECHNIQUE: Contiguous axial images of the chest were obtained after the intravenous administration of contrast using angiographic PE protocol. Coronal and sagittal reformatted images were reconstructed from the axial data. MIP images were created and reviewed. Axial CT images of the abdomen and pelvis with coronal and sagittal reconstructed images obtained after intravenous administration of . FINDINGS: MEDIASTINUM AND LYMPH NODES: No enlarged intrathoracic or axillary lymph nodes. Small hiatal hernia. No pneumomediastinum. VESSELS: Normal caliber aorta without significant aortic atherosclerosis. Evaluation of the pulmonary arteries is partially limited by contrast bolus and patient body habitus.No definite pulmonary embolism identified to the segmental level. HEART: Normal in size. No significant coronary artery calcifications. No significant pericardial effusion. LUNG, AIRWAYS, AND PLEURA:Scattered hazy and interstitial opacities. Lower lobe bronchiectasis with bronchial wall thickeningand bibasilar consolidative opacities. No sizable pneumothorax or pleural effusion. OSSEOUS STRUCTURES/CHEST WALL: Subtle rib deformities noted along the anterior right 5th and 6th ribs (annotated onseries 401). Degenerative changes of the thoracic spine. The sternum appears intact. ABDOMEN: BONES: No acute osseous abnormality. Multilevel degenerative changes. Subtle deformity of the distal sacrum (series 503, image 62) which is age indeterminate. ABDOMINAL WALL: Fat containing left inguinal he rnia. LIVER: 19.3 cm, enlarged. BILE DUCTS: Biliary ductal dilatation with the common bile duct measuring up to 11 mm and mild central biliary ductal dilatation, within normal limits in the post cholecystectomy state. GALLBLADDER: Surgically absent. PANCREAS: Within normal limits. SPLEEN: Within normal limits. ADRENALS: Within normal limits. KIDNEYS AND URETERS: Symmetric renal enhancement. No hydronephrosis or perinephric fluid collection. No hydroureter. VESSELS: Atherosclerotic calcifications without aneurysmal dilatation seen. RETROPERITONEUM: Within normal limits. PELVIS: REPRODUCTIVE ORGANS: No pelvic mass or significant free pelvic fluid. BLADDER: Within normal limits. BOWEL: Significant colonic stool burden. The distal colon is decompressed partially limiting evaluation. Diverticulosis without CT evidence of acute diverticulitis. PERITONEUM: No ascites or free air, no fluid collection. Partially limited evaluation of the pulmonary arteries otherwise no discrete pulmonary embolism identified to the segmental level. Subtle minimally displaced/deformed right anterior 5th and 6th rib fractures. No sizable pneumothorax is identified. Hazy parenchymal airspace opacities which could be r elated to air trapping, infection or inflammatory changes. Bibasilar are consolidative opacities with bronchiectasis and bronchial wall thickening may be related to aspiration pneumonitis or infection. No acute abnormality of the abdomen and pelvis. Chronic changes including hepatomegaly, significant stool burden and additional findings as detailed. MACRO: None. Signed by: Beba Rao 01/02/2024 10:01 PM Dictation workstation: [id number] CT abdomen pelvis w IV contrast Result Date: 01/02/2024 Interpreted By: Beba Rao, STUDY: CT ANGIO CHEST FOR PULMONARY EMBOLISM; CT ABDOMEN PELVIS W IV CONTRAST; 01/02/2024 9:18 pm INDICATION: Signs/Symptoms:Fall from ground-level hypoxic. COMPARISON: None. ACCESSION NUMBER(S): [id number]; [id number] ORDERING CLINICIAN: NILSA QUINTERO TECHNIQUE: Contiguous axial images of the chest were obtained after the intravenous administration of contrast using angiographic PE protocol. Coronal and sagittal reformatted images were reconstructed from the axial data. MIP images were created and reviewed. Axial CT images of the abdomen and pelvis with coronal and sagittal reconstructed images obtained after intravenous administration of . FINDINGS: MEDIASTINUM AND LYMPH NODES: No enlarged intrathoracic or axillary lymph nodes. Small hiatal hernia. No pneumomediastinum. VESSELS: Normal caliber aorta without significant aortic atherosclerosis. Evaluation of the pulmonary arteries is partially limited by contrast bolus and patient body habitus.No definite pulmonary embolism identified to the segmental level. HEART: Normal in size. No significant coronary artery calcifications. No significant pericardial effusion. LUNG, AIRWAYS, AND PLEURA:Scattered hazy and interstitial opacities. Lower lobe bronchiectasis with bronchial wall thickeningand bibasilar consolidative opacities. No sizable pneumothorax or pleural effusion. OSSEOUS STRUCTURES/CHEST WALL: Subtle rib deformities noted along the anterior right 5th and 6th ribs (annotated onseries 401). Degenerative changes of the thoracic spine. The sternum appears intact. ABDOMEN: BONES: No acute osseous abnormality. Multilevel degenerative changes. Subtle deformity of the distal sacrum (series 503, image 62) which is age indeterminate. ABDOMINAL WALL: Fat containing left inguinal he rnia. LIVER: 19.3 cm, enlarged. BILE DUCTS: Biliary ductal dilatation with the common bile duct measuring up to 11 mm and mild central biliary ductal dilatation, within normal limits in the post cholecystectomy state. GALLBLADDER: Surgically absent. PANCREAS: Within normal limits. SPLEEN: Within normal limits. ADRENALS: Within normal limits. KIDNEYS AND URETERS: Symmetric renal enhancement. No hydronephrosis or perinephric fluid collection. No hydroureter. VESSELS: Atherosclerotic calcifications without aneurysmal dilatation seen. RETROPERITONEUM: Within normal limits. PELVIS: REPRODUCTIVE ORGANS: No pelvic mass or significant free pelvic fluid. BLADDER: Within normal limits. BOWEL: Significant colonic stool burden. The distal colon is decompressed partially limiting evaluation. Diverticulosis without CT evidence of acute diverticulitis. PERITONEUM: No ascites or free air, no fluid collection. Partially limited evaluation of the pulmonary arteries otherwise no discrete pulmonary embolism identified to the segmental level. Subtle minimally displaced/deformed right anterior 5th and 6th rib fractures. No sizable pneumothorax is identified. Hazy parenchymal airspace opacities which could be r elated to air trapping, infection or inflammatory changes. Bibasilar are consolidative opacities with bronchiectasis and bronchial wall thickening may be related to aspiration pneumonitis or infection. No acute abnormality of the abdomen and pelvis. Chronic changes including hepatomegaly, significant stool burden and additional findings as detailed. MACRO: None. Signed by: Beba Rao 01/02/2024 10:01 PM Dictation workstation: [id number] CT head wo IV contrast Result Date: 01/02/2024 Interpreted By: Beba Rao, STUDY: CT HEAD WO IV CONTRAST; CT CERVICAL SPINE WO IV CONTRAST; 01/02/2024 9:18 pm INDICATION: Signs/Symptoms:fall. COMPARISON: None. ACCESSION NUMBER(S): [id number]; [id number] ORDERING CLINICIAN: NILSA QUINTERO TECHNIQUE: Noncontrast CT images of head. Axial noncontrast CT images of the cervical spine with coronal and sagittal reconstructed images. FINDINGS: BRAIN PARENCHYMA: Hylton-white matter interfaces are preserved. No mass effect or midline shift. Generalized parenchymal volume loss noted with concordant ventricular enlargement. Non-specific white matter changes noted, which may be related to small vessel disease. HEMORRHAGE: No acute intracranial hemorrhage. VENTRICLES and EXTRA-AXIAL SPACES: Normal size. EXTRACRANIAL SOFT TISSUES: Within normal limits. PARANASAL SINUSES/MASTOIDS: The visualized paranasal sinuses and mastoid air cells are aerated. CALVARIUM: No depressed skull fracture. No destructive osseous lesion. OTHER FINDINGS: None. CERVICAL SPINE: ALIGNMENT: Normal. VERTEBRAE: No acute fracture. SPINAL CANAL: Degenerative changes facet and uncinate arthropathy, as well as disc space narrowing and end plate hypertrophy. Hapa-ti-scdkvonf right foraminal narrowing C4-C5. Nqzc-in-oifyewzi bilateral foraminal narrowing C5-C6. No critical canal stenosis. PREVERTEBRAL SOFT TISSUES: No prevertebral soft tissue swelling. LUNG APICES: Biapical ground-glass interstitial airspace approximately. OTHER FINDINGS: None. No acute intracranial hemorrhage or mass effect. No acute fracture or traumatic subluxation of the cervical spine. MACRO: None. Signed by: Beba Rao 01/02/2024 9:49 PM Dictation workstation: [id number] CT cervical spine wo IV contrast Result Date: 01/02/2024 Interpreted By: Beba Rao, STUDY: CT HEAD WO IV CONTRAST; CT CERVICAL SPINE WO IV CONTRAST; 01/02/2024 9:18 pm INDICATION: Signs/Symptoms:fall. COMPARISON: None. ACCESSION NUMBER(S): [id number]; [id number] ORDERING CLINICIAN: NILSA QUINTERO TECHNIQUE: Noncontrast CT images of head. Axial noncontrast CT images of the cervical spine with coronal and sagittal reconstructed images. FINDINGS: BRAIN PARENCHYMA: Hylton-white matter interfaces are preserved. No mass effect or midline shift. Generalized parenchymal volume loss noted with concordant ventricular enlargement. Non-specific white matter changes noted, which may be related to small vessel disease. HEMORRHAGE: No acute intracranial hemorrhage. VENTRICLES and EXTRA-AXIAL SPACES: Normal size. EXTRACRANIAL SOFT TISSUES: Within normal limits. PARANASAL SINUSES/MASTOIDS: The visualized paranasal sinuses and mastoid air cells are aerated. CALVARIUM: No depressed skull fracture. No destructive osseous lesion. OTHER FINDINGS: None. CERVICAL SPINE: ALIGNMENT: Normal. VERTEBRAE: No acute fracture. SPINAL CANAL: Degenerative changes facet and uncinate arthropathy, as well as disc space narrowing and end plate hypertrophy. Ltvi-fy-awbeudgg right foraminal narrowing C4-C5. Xxxm-uq-nfsipczz bilateral foraminal narrowing C5-C6. No critical canal stenosis. PREVERTEBRAL SOFT TISSUES: No prevertebral soft tissue swelling. LUNG APICES: Biapical ground-glass interstitial airspace approximately. OTHER FINDINGS: None. No acute intracranial hemorrhage or mass effect. No acute fracture or traumatic subluxation of the cervical spine. MACRO: None. Signed by: Beba Rao 01/02/2024 9:49 PM Dictation workstation: [id number] XR chest 1 view Result Date: 01/02/2024 Interpreted By: Kristofer Loyd, STUDY: XR CHEST 1 VIEW; 01/02/2024 9:03 pm INDICATION: Signs/Symptoms:Hypoxia. COMPARISON: None. ACCESSION NUMBER(S): [id number] ORDERING CLINICIAN: NILSA QUINTERO FINDINGS: The cardiomediastinal silhouette and pulmonary vasculature are within normal limits. Mild bibasilar atelectasis. No consolidation, pleural effusion or pneumothorax. No acute cardiopulmonary process. Mild bibasilar atelectasis. MACRO: None. Signed by: Kristofer Loyd 01/02/2024 9:21 PM Dictation workstation: [id number] Results for orders placed or performed during the hospital encounter of 01/02/24 (from the past 24 hours) ECG 12 lead Result Value Ref Range Ventricular Rate 91 BPM Atrial Rate 91 BPM DC Interval 164 ms QRS Duration 72 ms QT Interval 344 ms QTC Calculation(Bazett) 423 ms P Hartfield 54 degrees R Hartfield -20 degrees T Hartfield 47 degrees QRS Count 15 beats Q Onset 229 ms P Onset 147 ms P Offset 203 ms T Offset 401 ms QTC Fredericia 395 ms CBC and Auto Differential Result Value Ref Range WBC 12.0 (H) 4.4 - 11.3 x10*3/uL nRBC 0.0 0.0 - 0.0 /100 WBCs RBC 5.03 4.00 - 5.20 x10*6/uL Hemoglobin 16.8 (H) 12.0 - 16.0 g/dL Hematocrit 50.8 (H) 36.0 - 46.0 % MCV 101 (H) 80 - 100 fL MCH 33.4 26.0 - 34.0 pg MCHC 33.1 32.0 - 36.0 g/dL RDW 13.2 11.5 - 14.5 % Platelets 220 150 - 450 x10*3/uL Neutrophils % 79.0 40.0 - 80.0 % Immature Granulocytes %, Automated 0.4 0.0 - 0.9 % Lymphocytes % 10.4 13.0 - 44.0 % Monocytes % 6.2 2.0 - 10.0 % Eosinophils % 3.2 0.0 - 6.0 % Basophils % 0.8 0.0 - 2.0 % Neutrophils Absolute 9.50 (H) 1.20 - 7.70 x10*3/uL Immature Granulocytes Absolute, Automated 0.05 0.00 - 0.70 x10*3/uL Lymphocytes Absolute 1.25 1.20 - 4.80 x10*3/uL Monocytes Absolute 0.74 0.10 - 1.00 x10*3/uL Eosinophils Absolute 0.38 0.00 - 0.70 x10*3/uL Basophils Absolute 0.10 0.00 - 0.10 x10*3/uL Comprehensive Metabolic Panel Result Value Ref Range Glucose 91 74 - 99 mg/dL Sodium 139 136 - 145 mmol/L Potassium 4.3 3.5 - 5.3 mmol/L Chloride 102 98 - 107 mmol/L Bicarbonate 25 21 - 32 mmol/L Anion Gap 16 10 - 20 mmol/L Urea Nitrogen 18 6 - 23 mg/dL Creatinine 1.07 (H) 0.50 - 1.05 mg/dL eGFR 57 (L) >60 mL/min/1.73m*2 Calcium 10.7 (H) 8.6 - 10.3 mg/dL Albumin 4.9 3.4 - 5.0 g/dL Alkaline Phosphatase 170 (H) 33 - 136 U/L Total Protein 9.0 (H) 6.4 - 8.2 g/dL AST 23 9 - 39 U/L Bilirubin, Total 0.8 0.0 - 1.2 mg/dL ALT 17 7 - 45 U/L Magnesium Result Value Ref Range Magnesium 2.29 1.60 - 2.40 mg/dL Troponin I, High Sensitivity, Initial Result Value Ref Range Troponin I, High Sensitivity 3 0 - 13 ng/L Coagulation Screen Result Value Ref Range Protime 12.8 9.8 - 12.8 seconds INR 1.1 0.9 - 1.1 aPTT 29 27 - 38 seconds Troponin, High Sensitivity, 1 Hour Result Value Ref Range Troponin I, High Sensitivity 15 (H) 0 - 13 ng/L CBC Result Value Ref Range WBC 10.7 4.4 - 11.3 x10*3/uL nRBC 0.0 0.0 - 0.0 /100 WBCs RBC 4.54 4.00 - 5.20 x10*6/uL Hemoglobin 14.8 12.0 - 16.0 g/dL Hematocrit 45.7 36.0 - 46.0 % MCV 101 (H) 80 - 100 fL MCH 32.6 26.0 - 34.0 pg MCHC 32.4 32.0 - 36.0 g/dL RDW 13.3 11.5 - 14.5 % Platelets 270 150 - 450 x10*3/uL Comprehensive Metabolic Panel Result Value Ref Range Glucose 99 74 - 99 mg/dL Sodium 140 136 - 145 mmol/L Potassium 3.8 3.5 - 5.3 mmol/L Chloride 105 98 - 107 mmol/L Bicarbonate 27 21 - 32 mmol/L Anion Gap 12 10 - 20 mmol/L Urea Nitrogen 18 6 - 23 mg/dL Creatinine 0.98 0.50 - 1.05 mg/dL eGFR 63 >60 mL/min/1.73m*2 Calcium 9.2 8.6 - 10.3 mg/dL Albumin 3.9 3.4 - 5.0 g/dL Alkaline Phosphatase 132 33 - 136 U/L Total Protein 7.0 6.4 - 8.2 g/dL AST 14 9 - 39 U/L Bilirubin, Total 1.0 0.0 - 1.2 mg/dL ALT 13 7 - 45 U/L Assessment/Plan Nhi Smith is a 68 y.o. female With past medical history interstitial lung disease, hyperlipidemia, asthma, COPD, depression and anxiety presenting after mechanical fall where her dog pulled her forward and she fell mostly on her right side. Denies hitting her head. She takes aspirin daily but is not on any other blood thinners. She had some difficulty breathing and came to the ED for furtherevaluation. Pulse ox was 76% in the ED. She was placed on Airvo. She has been tachypneic and her blood pressures have been stable for the most part. She does not use any home oxygen. EKG in the ED showed normal sinus rhythm with a rate of [address] changes. Labs show electrolytes largely within normal limits, white blood cell count 10.7. Chest x-ray was unremarkable. CT head was negative for acute fracture. CT abdomen pelvis with IV contrast shows minimally displaced right anterior fifth and sixth rib fractures without pneumothorax. There are bibasilar consolidative opacities present.There is significant colonic stool burden, biliary ductal dilation with common bile duct dilated upto 11 mm, gallbladder surgically absent. No PE. There is chronic hepatomegaly. X-ray of right shoulder was unremarkable. Patient was admitted to trauma service and medicine was consulted for further medical management. Patient currently endorses some shortness of breath and rib pain. Denies any fevers, chills, dizziness, lightheadedness, loss of consciousness. #R rib fractures 5th and 6th rib #Mechanical fall #Acute hypoxic respiratory failure requiring supplemental airvo #R shoulder pain after fall -wean oxygen -keep o2 sats between 88-94% -pain meds per trauma, avoid deadly triad -pulm hygiene, cont pulse ox -pulm consulted -scheudled nebs -tele monitoring #Overactive bladder -home oxybutynin #Depression/Anxiety -home wellbutrin/celexa #HLD -home statin #COPD/hx ILD -home breo -duonebs #hepatomegaly -asymptomatic #Constipation -bowel regimen Heber Almanzar DO Cosigned by Severo Dickens MD at 01/04/2024 11:46 AM EST Associated attestation - Severo Dickens MD - 01/04/2024 11:46 AM EST I saw and evaluated the patient. I personally obtained the bedoya and critical portions of the historyand physical exam or was physically present for bedoya and critical portions performed by the resident/fellow. I reviewed the resident/fellow's documentation and discussed the patient with the resident/f carlos. I agree with the resident/fellow's medical decision making as documented in the note. [facility] Work Phone: [phone] 458-703811-20-2024 Consult note* Heber Almanzar DO - 01/03/2024 1:20 PM EST Consults Reason For Consult Med Mngmt History Of Present Illness Nhi Smith is a 68 y.o. female With past medical history interstitial lung disease, hyperlipidemia, asthma, COPD, depression and anxiety presenting after mechanical fall where her dog pulled her forward and she fell mostly on her right side. Denies hitting her head. She takes aspirin daily but is not on any other blood thinners. She had some difficulty breathing and came to the ED for furtherevaluation. Pulse ox was 76% in the ED. She was placed on Airvo. She has been tachypneic and her blood pressures have been stable for the most part. She does not use any home oxygen. EKG in the ED showed normal sinus rhythm with a rate of [address] changes. Labs show electrolytes largely within normal limits, white blood cell count 10.7. Chest x-ray was unremarkable. CT head was negative for acute fracture. CT abdomen pelvis with IV contrast shows minimally displaced right anterior fifth and sixth rib fractures without pneumothorax. There are bibasilar consolidative opacities present.There is significant colonic stool burden, biliary ductal dilation with common bile duct dilated upto 11 mm, gallbladder surgically absent. No PE. There is chronic hepatomegaly. X-ray of right shoulder was unremarkable. Patient was admitted to trauma service and medicine was consulted for further medical management. Patient currently endorses some shortness of breath and rib pain. Denies any fevers, chills, dizziness, lightheadedness, loss of consciousness. Past Medical History She has a past medical history of Asthma ([facility]) (May 2021), Vaginal discharge (10/11/2022), and Vaginal itching (10/11/2022). Surgical History She has a past surgical history that includes Gallbladder surgery (11/11/2015); section, classic (11/11/2015); Cholecystectomy; and section, low transverse (July 1975). Social History She reports that she has quit smoking. Her smoking use included cigarettes. She has a 10 pack-year smoking history. She has never used smokeless tobacco. She reports that she does not drink alcohol and does not use drugs. Family History Family History Problem Relation Name Age of Onset Diabetes Mother Darby Heart disease Mother Darby Hypertension Mother Darby Alcohol abuse Father Raleigh Diabetes Father Raleigh Alcohol abuse Brother Bryant Cancer Mother's Sister Liliana Allergies Patient has no known allergies. Review of Systems Constitutional: Negative. HENT: Negative. Eyes: Negative. Respiratory: Positive for cough, chest tightness and shortness of breath. Cardiovascular: Negative. Gastrointestinal: Negative. Endocrine: Negative. Genitourinary: Negative. Musculoskeletal: Positive for arthralgias and myalgias. Skin: Positive for color change. Allergic/Immunologic: Negative. Neurological: Negative for dizziness and facial asymmetry. Hematological: Bruises/bleeds easily. Psychiatric/Behavioral: Negative. Physical Exam Constitutional: General: She is not in acute distress. HENT: Head: Normocephalic and atraumatic. Right Ear: External ear normal. Left Ear: External ear normal. Eyes: Extraocular Movements: Extraocular movements intact. Pupils: Pupils are equal, round, and reactive to light. Cardiovascular: Rate and Rhythm: Normal rate and regular rhythm. Pulmonary: Comments: Coarse sounds bilaterally, on Airvo 50 L, 50% FiO2 Abdominal: General: Bowel sounds are normal. Palpations: Abdomen is soft. Musculoskeletal: General: No deformity or signs of injury. Skin: General: Skin is warm and dry. Neurological: General: No focal deficit present. Mental Status: She is alert. Mental status is at baseline. Psychiatric: Mood and Affect: Mood normal. Behavior: Behavior normal. Last Recorded Vitals BP 137/63 (BP Location: Left arm, Patient Position: Lying) Pulse 67 Temp 35.6 C (96.1 F) (Temporal) Resp 17 Wt 90 kg (198 lb 6.6 oz) SpO2 92% Relevant Results XR ribs 4 views bilateral Result Date: 01/03/2024 Interpreted By: Delfino Wallace, STUDY: XR RIBS 4 VIEWS BILATERAL; ; 01/03/2024 1:30 pm INDICATION: Signs/Symptoms:investigate further rib fracture. COMPARISON: None. ACCESSION NUMBER(S): [id number] ORDERING CLINICIAN: SOFIA WADE FINDINGS: Rib series, 7 views There is no evidence of a rib fracture. There is no pneumothorax. There is no airspace disease or effusion. No rib fracture seen MACRO: None Signed by: Delfino Wallace 01/03/2024 1:35 PM Dictation workstation: [id number] ECG 12 lead Result Date: 01/03/2024 Normal sinus rhythm Normal ECG When compared with ECG of 05-DEC-2019 14:27, Questionable change in QRS axis XR chest 1 view Result Date: 01/03/2024 Interpreted By: Jon Méndez, STUDY: XR CHEST 1 VIEW; 01/03/2024 6:34 am INDICATION: Signs/Symptoms:rib fractures. COMPARISON: 01/02/2024 ACCESSION NUMBER(S): [id number] ORDERING CLINICIAN: HAWA ZENDEJAS FINDINGS: CARDIOMEDIASTINAL SILHOUETTE AND VASCULATURE: Cardiac size: Within normal limits . Aortic shadow: Within normal limits. Mediastinal contours: Within normal limits. Pulmonary vasculature: The central vasculature is unremarkable LUNGS: Development of several bands of atelectasis inthe right lower lung. The lungs otherwise are clear. ABDOMEN AND OTHER FINDINGS: No remarkable upper abdominal findings. BONES: There is slight angulation of the lateral aspect of the right 4th rib may be from a remote fracture, as an acute fracture was not evident on the previous day's CT scan. 1. Right lower lung atelectasis. Signed by: Jon Méndez 01/03/2024 8:30 AM Dictation workstation: [id number] XR shoulder right 2+ views Result Date: 01/02/2024 Interpreted By: Kristofer Loyd, STUDY: XR SHOULDER RIGHT 2+ VIEWS; ; 01/02/2024 11:33 pm INDICATION: Signs/Symptoms:right shoulder pain after fall. COMPARISON: None. ACCESSION NUMBER(S): [id number] ORDERING CLINICIAN: HAWA ZENDEJAS FINDINGS: There is no acute fracture. The acromioclavicular joint and glenohumeral joint are intact. The subacromial space is maintained. There is mild glenohumeral joint osteoarthrosis. There is irregularity and sclerosis of the greater tuberosity compatible with rotator cuff tendinosis. No acute osseous abnormality of the right shoulder. MACRO: None. Signed by: Kristofer Loyd 01/02/2024 11:56 PM Dictation workstation: [id number] CT angio chest for pulmonary embolism Result Date: 01/02/2024 Interpreted By: Beba Rao, STUDY: CT ANGIO CHEST FOR PULMONARY EMBOLISM; CT ABDOMEN PELVIS W IV CONTRAST; 01/02/2024 9:18 pm INDICATION: Signs/Symptoms:Fall from ground-level hypoxic. COMPARISON: None. ACCESSION NUMBER(S): [id number]; [id number] ORDERING CLINICIAN: NILSA QUINTERO TECHNIQUE: Contiguous axial images of the chest were obtained after the intravenous administration of contrast using angiographic PE protocol. Coronal and sagittal reformatted images were reconstructed from the axial data. MIP images were created and reviewed. Axial CT images of the abdomen and pelvis with coronal and sagittal reconstructed images obtained after intravenous administration of . FINDINGS: MEDIASTINUM AND LYMPH NODES: No enlarged intrathoracic or axillary lymph nodes. Small hiatal hernia. No pneumomediastinum. VESSELS: Normal caliber aorta without significant aortic atherosclerosis. Evaluation of the pulmonary arteries is partially limited by contrast bolus and patient body habitus.No definite pulmonary embolism identified to the segmental level. HEART: Normal in size. No significant coronary artery calcifications. No significant pericardial effusion. LUNG, AIRWAYS, AND PLEURA:Scattered hazy and interstitial opacities. Lower lobe bronchiectasis with bronchial wall thickeningand bibasilar consolidative opacities. No sizable pneumothorax or pleural effusion. OSSEOUS STRUCTURES/CHEST WALL: Subtle rib deformities noted along the anterior right 5th and 6th ribs (annotated onseries 401). Degenerative changes of the thoracic spine. The sternum appears intact. ABDOMEN: BONES: No acute osseous abnormality. Multilevel degenerative changes. Subtle deformity of the distal sacrum (series 503, image 62) which is age indeterminate. ABDOMINAL WALL: Fat containing left inguinal he rnia. LIVER: 19.3 cm, enlarged. BILE DUCTS: Biliary ductal dilatation with the common bile duct measuring up to 11 mm and mild central biliary ductal dilatation, within normal limits in the post cholecystectomy state. GALLBLADDER: Surgically absent. PANCREAS: Within normal limits. SPLEEN: Within normal limits. ADRENALS: Within normal limits. KIDNEYS AND URETERS: Symmetric renal enhancement. No hydronephrosis or perinephric fluid collection. No hydroureter. VESSELS: Atherosclerotic calcifications without aneurysmal dilatation seen. RETROPERITONEUM: Within normal limits. PELVIS: REPRODUCTIVE ORGANS: No pelvic mass or significant free pelvic fluid. BLADDER: Within normal limits. BOWEL: Significant colonic stool burden. The distal colon is decompressed partially limiting evaluation. Diverticulosis without CT evidence of acute diverticulitis. PERITONEUM: No ascites or free air, no fluid collection. Partially limited evaluation of the pulmonary arteries otherwise no discrete pulmonary embolism identified to the segmental level. Subtle minimally displaced/deformed right anterior 5th and 6th rib fractures. No sizable pneumothorax is identified. Hazy parenchymal airspace opacities which could be r elated to air trapping, infection or inflammatory changes. Bibasilar are consolidative opacities with bronchiectasis and bronchial wall thickening may be related to aspiration pneumonitis or infection. No acute abnormality of the abdomen and pelvis. Chronic changes including hepatomegaly, significant stool burden and additional findings as detailed. MACRO: None. Signed by: Beba Rao 01/02/2024 10:01 PM Dictation workstation: [id number] CT abdomen pelvis w IV contrast Result Date: 01/02/2024 Interpreted By: Beba Rao, STUDY: CT ANGIO CHEST FOR PULMONARY EMBOLISM; CT ABDOMEN PELVIS W IV CONTRAST; 01/02/2024 9:18 pm INDICATION: Signs/Symptoms:Fall from ground-level hypoxic. COMPARISON: None. ACCESSION NUMBER(S): [id number]; [id number] ORDERING CLINICIAN: NILSA QUINTERO TECHNIQUE: Contiguous axial images of the chest were obtained after the intravenous administration of contrast using angiographic PE protocol. Coronal and sagittal reformatted images were reconstructed from the axial data. MIP images were created and reviewed. Axial CT images of the abdomen and pelvis with coronal and sagittal reconstructed images obtained after intravenous administration of . FINDINGS: MEDIASTINUM AND LYMPH NODES: No enlarged intrathoracic or axillary lymph nodes. Small hiatal hernia. No pneumomediastinum. VESSELS: Normal caliber aorta without significant aortic atherosclerosis. Evaluation of the pulmonary arteries is partially limited by contrast bolus and patient body habitus.No definite pulmonary embolism identified to the segmental level. HEART: Normal in size. No significant coronary artery calcifications. No significant pericardial effusion. LUNG, AIRWAYS, AND PLEURA:Scattered hazy and interstitial opacities. Lower lobe bronchiectasis with bronchial wall thickeningand bibasilar consolidative opacities. No sizable pneumothorax or pleural effusion. OSSEOUS STRUCTURES/CHEST WALL: Subtle rib deformities noted along the anterior right 5th and 6th ribs (annotated onseries 401). Degenerative changes of the thoracic spine. The sternum appears intact. ABDOMEN: BONES: No acute osseous abnormality. Multilevel degenerative changes. Subtle deformity of the distal sacrum (series 503, image 62) which is age indeterminate. ABDOMINAL WALL: Fat containing left inguinal he rnia. LIVER: 19.3 cm, enlarged. BILE DUCTS: Biliary ductal dilatation with the common bile duct measuring up to 11 mm and mild central biliary ductal dilatation, within normal limits in the post cholecystectomy state. GALLBLADDER: Surgically absent. PANCREAS: Within normal limits. SPLEEN: Within normal limits. ADRENALS: Within normal limits. KIDNEYS AND URETERS: Symmetric renal enhancement. No hydronephrosis or perinephric fluid collection. No hydroureter. VESSELS: Atherosclerotic calcifications without aneurysmal dilatation seen. RETROPERITONEUM: Within normal limits. PELVIS: REPRODUCTIVE ORGANS: No pelvic mass or significant free pelvic fluid. BLADDER: Within normal limits. BOWEL: Significant colonic stool burden. The distal colon is decompressed partially limiting evaluation. Diverticulosis without CT evidence of acute diverticulitis. PERITONEUM: No ascites or free air, no fluid collection. Partially limited evaluation of the pulmonary arteries otherwise no discrete pulmonary embolism identified to the segmental level. Subtle minimally displaced/deformed right anterior 5th and 6th rib fractures. No sizable pneumothorax is identified. Hazy parenchymal airspace opacities which could be r elated to air trapping, infection or inflammatory changes. Bibasilar are consolidative opacities with bronchiectasis and bronchial wall thickening may be related to aspiration pneumonitis or infection. No acute abnormality of the abdomen and pelvis. Chronic changes including hepatomegaly, significant stool burden and additional findings as detailed. MACRO: None. Signed by: Beba Rao 01/02/2024 10:01 PM Dictation workstation: [id number] CT head wo IV contrast Result Date: 01/02/2024 Interpreted By: Beba Rao, STUDY: CT HEAD WO IV CONTRAST; CT CERVICAL SPINE WO IV CONTRAST; 01/02/2024 9:18 pm INDICATION: Signs/Symptoms:fall. COMPARISON: None. ACCESSION NUMBER(S): [id number]; [id number] ORDERING CLINICIAN: NILSA QUINTERO TECHNIQUE: Noncontrast CT images of head. Axial noncontrast CT images of the cervical spine with coronal and sagittal reconstructed images. FINDINGS: BRAIN PARENCHYMA: Hylton-white matter interfaces are preserved. No mass effect or midline shift. Generalized parenchymal volume loss noted with concordant ventricular enlargement. Non-specific white matter changes noted, which may be related to small vessel disease. HEMORRHAGE: No acute intracranial hemorrhage. VENTRICLES and EXTRA-AXIAL SPACES: Normal size. EXTRACRANIAL SOFT TISSUES: Within normal limits. PARANASAL SINUSES/MASTOIDS: The visualized paranasal sinuses and mastoid air cells are aerated. CALVARIUM: No depressed skull fracture. No destructive osseous lesion. OTHER FINDINGS: None. CERVICAL SPINE: ALIGNMENT: Normal. VERTEBRAE: No acute fracture. SPINAL CANAL: Degenerative changes facet and uncinate arthropathy, as well as disc space narrowing and end plate hypertrophy. Rjex-oq-lytxpeat right foraminal narrowing C4-C5. Vtct-ka-tdcqpvja bilateral foraminal narrowing C5-C6. No critical canal stenosis. PREVERTEBRAL SOFT TISSUES: No prevertebral soft tissue swelling. LUNG APICES: Biapical ground-glass interstitial airspace approximately. OTHER FINDINGS: None. No acute intracranial hemorrhage or mass effect. No acute fracture or traumatic subluxation of the cervical spine. MACRO: None. Signed by: Beba Rao 01/02/2024 9:49 PM Dictation workstation: [id number] CT cervical spine wo IV contrast Result Date: 01/02/2024 Interpreted By: Beba Rao, STUDY: CT HEAD WO IV CONTRAST; CT CERVICAL SPINE WO IV CONTRAST; 01/02/2024 9:18 pm INDICATION: Signs/Symptoms:fall. COMPARISON: None. ACCESSION NUMBER(S): [id number]; [id number] ORDERING CLINICIAN: NILSA QUINTERO TECHNIQUE: Noncontrast CT images of head. Axial noncontrast CT images of the cervical spine with coronal and sagittal reconstructed images. FINDINGS: BRAIN PARENCHYMA: Hylton-white matter interfaces are preserved. No mass effect or midline shift. Generalized parenchymal volume loss noted with concordant ventricular enlargement. Non-specific white matter changes noted, which may be related to small vessel disease. HEMORRHAGE: No acute intracranial hemorrhage. VENTRICLES and EXTRA-AXIAL SPACES: Normal size. EXTRACRANIAL SOFT TISSUES: Within normal limits. PARANASAL SINUSES/MASTOIDS: The visualized paranasal sinuses and mastoid air cells are aerated. CALVARIUM: No depressed skull fracture. No destructive osseous lesion. OTHER FINDINGS: None. CERVICAL SPINE: ALIGNMENT: Normal. VERTEBRAE: No acute fracture. SPINAL CANAL: Degenerative changes facet and uncinate arthropathy, as well as disc space narrowing and end plate hypertrophy. Minp-cb-zvdndrex right foraminal narrowing C4-C5. Zegw-vv-bfybbmau bilateral foraminal narrowing C5-C6. No critical canal stenosis. PREVERTEBRAL SOFT TISSUES: No prevertebral soft tissue swelling. LUNG APICES: Biapical ground-glass interstitial airspace approximately. OTHER FINDINGS: None. No acute intracranial hemorrhage or mass effect. No acute fracture or traumatic subluxation of the cervical spine. MACRO: None. Signed by: Beba Rao 01/02/2024 9:49 PM Dictation workstation: [id number] XR chest 1 view Result Date: 01/02/2024 Interpreted By: Kristofer Loyd, STUDY: XR CHEST 1 VIEW; 01/02/2024 9:03 pm INDICATION: Signs/Symptoms:Hypoxia. COMPARISON: None. ACCESSION NUMBER(S): [id number] ORDERING CLINICIAN: NILSA QUINTERO FINDINGS: The cardiomediastinal silhouette and pulmonary vasculature are within normal limits. Mild bibasilar atelectasis. No consolidation, pleural effusion or pneumothorax. No acute cardiopulmonary process. Mild bibasilar atelectasis. MACRO: None. Signed by: Kristofer Loyd 01/02/2024 9:21 PM Dictation workstation: [id number] Results for orders placed or performed during the hospital encounter of 01/02/24 (from the past 24 hours) ECG 12 lead Result Value Ref Range Ventricular Rate 91 BPM Atrial Rate 91 BPM DC Interval 164 ms QRS Duration 72 ms QT Interval 344 ms QTC Calculation(Bazett) 423 ms P Hartfield 54 degrees R Hartfield -20 degrees T Hartfield 47 degrees QRS Count 15 beats Q Onset 229 ms P Onset 147 ms P Offset 203 ms T Offset 401 ms QTC Fredericia 395 ms CBC and Auto Differential Result Value Ref Range WBC 12.0 (H) 4.4 - 11.3 x10*3/uL nRBC 0.0 0.0 - 0.0 /100 WBCs RBC 5.03 4.00 - 5.20 x10*6/uL Hemoglobin 16.8 (H) 12.0 - 16.0 g/dL Hematocrit 50.8 (H) 36.0 - 46.0 % MCV 101 (H) 80 - 100 fL MCH 33.4 26.0 - 34.0 pg MCHC 33.1 32.0 - 36.0 g/dL RDW 13.2 11.5 - 14.5 % Platelets 220 150 - 450 x10*3/uL Neutrophils % 79.0 40.0 - 80.0 % Immature Granulocytes %, Automated 0.4 0.0 - 0.9 % Lymphocytes % 10.4 13.0 - 44.0 % Monocytes % 6.2 2.0 - 10.0 % Eosinophils % 3.2 0.0 - 6.0 % Basophils % 0.8 0.0 - 2.0 % Neutrophils Absolute 9.50 (H) 1.20 - 7.70 x10*3/uL Immature Granulocytes Absolute, Automated 0.05 0.00 - 0.70 x10*3/uL Lymphocytes Absolute 1.25 1.20 - 4.80 x10*3/uL Monocytes Absolute 0.74 0.10 - 1.00 x10*3/uL Eosinophils Absolute 0.38 0.00 - 0.70 x10*3/uL Basophils Absolute 0.10 0.00 - 0.10 x10*3/uL Comprehensive Metabolic Panel Result Value Ref Range Glucose 91 74 - 99 mg/dL Sodium 139 136 - 145 mmol/L Potassium 4.3 3.5 - 5.3 mmol/L Chloride 102 98 - 107 mmol/L Bicarbonate 25 21 - 32 mmol/L Anion Gap 16 10 - 20 mmol/L Urea Nitrogen 18 6 - 23 mg/dL Creatinine 1.07 (H) 0.50 - 1.05 mg/dL eGFR 57 (L) >60 mL/min/1.73m*2 Calcium 10.7 (H) 8.6 - 10.3 mg/dL Albumin 4.9 3.4 - 5.0 g/dL Alkaline Phosphatase 170 (H) 33 - 136 U/L Total Protein 9.0 (H) 6.4 - 8.2 g/dL AST 23 9 - 39 U/L Bilirubin, Total 0.8 0.0 - 1.2 mg/dL ALT 17 7 - 45 U/L Magnesium Result Value Ref Range Magnesium 2.29 1.60 - 2.40 mg/dL Troponin I, High Sensitivity, Initial Result Value Ref Range Troponin I, High Sensitivity 3 0 - 13 ng/L Coagulation Screen Result Value Ref Range Protime 12.8 9.8 - 12.8 seconds INR 1.1 0.9 - 1.1 aPTT 29 27 - 38 seconds Troponin, High Sensitivity, 1 Hour Result Value Ref Range Troponin I, High Sensitivity 15 (H) 0 - 13 ng/L CBC Result Value Ref Range WBC 10.7 4.4 - 11.3 x10*3/uL nRBC 0.0 0.0 - 0.0 /100 WBCs RBC 4.54 4.00 - 5.20 x10*6/uL Hemoglobin 14.8 12.0 - 16.0 g/dL Hematocrit 45.7 36.0 - 46.0 % MCV 101 (H) 80 - 100 fL MCH 32.6 26.0 - 34.0 pg MCHC 32.4 32.0 - 36.0 g/dL RDW 13.3 11.5 - 14.5 % Platelets 270 150 - 450 x10*3/uL Comprehensive Metabolic Panel Result Value Ref Range Glucose 99 74 - 99 mg/dL Sodium 140 136 - 145 mmol/L Potassium 3.8 3.5 - 5.3 mmol/L Chloride 105 98 - 107 mmol/L Bicarbonate 27 21 - 32 mmol/L Anion Gap 12 10 - 20 mmol/L Urea Nitrogen 18 6 - 23 mg/dL Creatinine 0.98 0.50 - 1.05 mg/dL eGFR 63 >60 mL/min/1.73m*2 Calcium 9.2 8.6 - 10.3 mg/dL Albumin 3.9 3.4 - 5.0 g/dL Alkaline Phosphatase 132 33 - 136 U/L Total Protein 7.0 6.4 - 8.2 g/dL AST 14 9 - 39 U/L Bilirubin, Total 1.0 0.0 - 1.2 mg/dL ALT 13 7 - 45 U/L Assessment/Plan Nhi Smith is a 68 y.o. female With past medical history interstitial lung disease, hyperlipidemia, asthma, COPD, depression and anxiety presenting after mechanical fall where her dog pulled her forward and she fell mostly on her right side. Denies hitting her head. She takes aspirin daily but is not on any other blood thinners. She had some difficulty breathing and came to the ED for furtherevaluation. Pulse ox was 76% in the ED. She was placed on Airvo. She has been tachypneic and her blood pressures have been stable for the most part. She does not use any home oxygen. EKG in the ED showed normal sinus rhythm with a rate of [address] changes. Labs show electrolytes largely within normal limits, white blood cell count 10.7. Chest x-ray was unremarkable. CT head was negative for acute fracture. CT abdomen pelvis with IV contrast shows minimally displaced right anterior fifth and sixth rib fractures without pneumothorax. There are bibasilar consolidative opacities present.There is significant colonic stool burden, biliary ductal dilation with common bile duct dilated upto 11 mm, gallbladder surgically absent. No PE. There is chronic hepatomegaly. X-ray of right shoulder was unremarkable. Patient was admitted to trauma service and medicine was consulted for further medical management. Patient currently endorses some shortness of breath and rib pain. Denies any fevers, chills, dizziness, lightheadedness, loss of consciousness. #R rib fractures 5th and 6th rib #Mechanical fall #Acute hypoxic respiratory failure requiring supplemental airvo #R shoulder pain after fall -wean oxygen -keep o2 sats between 88-94% -pain meds per trauma, avoid deadly triad -pulm hygiene, cont pulse ox -pulm consulted -scheudled nebs -tele monitoring #Overactive bladder -home oxybutynin #Depression/Anxiety -home wellbutrin/celexa #HLD -home statin #COPD/hx ILD -home breo -duonebs #hepatomegaly -asymptomatic #Constipation -bowel regimen Heber Almanzar DO Cosigned by Severo Dickens MD at 01/04/2024 11:46 AM EST Associated attestation - Severo Dickens MD - 01/04/2024 11:46 AM EST I saw and evaluated the patient. I personally obtained the bedoya and critical portions of the historyand physical exam or was physically present for bedoya and critical portions performed by the resident/fellow. I reviewed the resident/fellow's documentation and discussed the patient with the resident/f carlos. I agree with the resident/fellow's medical decision making as documented in the note. * Sheldon Domínguez MD - 01/03/2024 7:32 AM EST Pulmonology consult note Assessment/Plan This is a 68-year-old female with history of asthma, COPD, depression/anxiety, overactive bladder, hyperlipidemia, interstitial lung disease, extensive dynamic airway collapse presented on 01/01 after a fall while walking her dog with associated right chest/rib pain and shortness of breath, worsening requiring Airvo support. 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 Showing poorly formed granulomas, highly suggestive of hypersensitivity pneumonitis. Patient has been counseled on removing the birds from her home previously; we had the same conversation with her. Patientwas previously on steroids and Bactrim for PCP prophylaxis, she states was given instruction to discontinue these. -Reviewed CT scan with the patient. She has bibasilar consolidative opacities in the lower lobes, suggestive of early interstitial lung disease. Thus, we will continue to encourage her to discontinueexposure to the birds to slow the progression. -Not chronically on oxygen. Currently requiring Airvo, 50/50. Wean as able to maintain SpO2 greaterthan 89%. -Obtain ribs view chest x-ray for further evaluation. Encourage incentive spirometer. Aggressive IVhydration. Out of bed as tolerated. -Pain control with lidocaine patch, uptitrate regimen as tolerated and as needed -Recommend CT surgery consultation -DVT prophylaxis, PT/OT History Of Present Illness Nhi Smith is a 68 y.o. female medical history detailed below presented on 01/01 with complaints of right chest/rib pain and associated shortness of breath in addition to right shoulder pain. Shewas walking her dog on Monday morning and fell on her right side on the sidewalk as her dog pulled away. Not on anticoagulation, does take daily aspirin. Pain did not resolve and shortness of breath began to worsen, prompting her arrival to the emergency department. On arrival SpO2 76% on room air, subsequently placed on Airvo. Does not wear oxygen at baseline. By pulmonology at [facility]. Pulmonology consulted for further evaluation and management. CT chest from 01/2023 concerning for hypersensitivity pneumonitis and excessive dynamic airway collapse, underwent elective bronchoscopy in 03/2023 with cryobiopsies. -Medical history: Asthma, COPD, depression/anxiety, overactive bladder, hyperlipidemia, interstitial lung disease, extensive dynamic airway collapse -family history: Mother (diabetes, heart disease, hypertension), father (alcohol abuse, diabetes), brother (alcohol abuse) -Social history: Former smoker ([id number] history), bird antigen exposure (with 10 birds at homefor 3 years and works 1 day a week at [employer] locally) Review of Systems General: denies weight gain, denies loss of appetite, fever, chills, night sweats. HEENT: denies headaches, visual changes, eye pain, tinnitus, nosebleeds, hoarseness or throat pain Respiratory: denies chest tightness, dyspnea, cough and hemoptysis Cardiovascular: denies orthopnea, paroxysmal nocturnal dyspnea, leg swelling, and previous heart attack. Gastrointestinal: denies pain, nausea vomiting, diarrhea, constipation, melena or bleeding. Genitourinary: denies hematuria, frequency, urgency or dysuria Neurology: denies syncope, seizures, paralysis, paraesthesia Endocrine: denies polyuria, polydipsia, skin or hair changes, and heat or cold intolerance Musculoskeletal: denies joint pain, swelling, arthritis or myalgia Hematologic: denies bleeding, adenopathy and easy bruising Skin: denies rashes and skin discoloration Psychiatry: denies depression Physical Exam General appearance: Not in pain or distress HEENT: EOMI, ALLEGRA, pharynx clear, moist mucosa, redness of the uvula appreciated Neck: Supple Chest: Decreased breath sounds throughout,, appropriate respiratory effort: Acute respiratory distress Cardiovascular: Normal S1, S2, regular rate and rhythm, no murmur, rub or gallop Abdomen: Normal sounds present, soft, lax with no tenderness Extremities: No edema. Pulses are equally present. Skin: intact Neurologic: Alert and oriented x 2, no focal deficit, slightly confused Last Recorded Vitals BP 137/63 (BP Location: Left arm, Patient Position: Lying) Pulse 67 Temp 37 C (98.6 F) (Temporal) Resp 17 Wt 88 kg (194 lb 0.1 oz) SpO2 92% Relevant Results Reviewed and independently interpreted CT chest completed on 01/01 showing subtle right anterior fifth and sixth rib fractures, bibasilar consolidative opacities with bronchiectasis. Chest x-ray on 01/01 showing bibasilar atelectasis, comparison with 01/02 showing no changes. Case discussed with primary team STAFF PHYSICIAN NOTE OF PERSONAL INVOLVEMENT IN CARE As the attending physician, I certify that I personally reviewed the patient's history and personally examined the patient to confirm the physical findings described above, and that I reviewed the relevant imaging studies and available reports. I also discussed the differential diagnosis and all ofthe proposed management plans with the patient and individuals accompanying the patient to this visit. They had the opportunity to ask questions about the proposed management plans and to have those questions answered. [facility] Work Phone: [phone]) 839-585711-20-2024 Nurse Note* Karthikeyan Barrera RN - 01/03/2024 1:00 PM EST Patient to Xray via wheelchair with O2 non rebreather and escort. [facility] Work Phone: [phone] 766-184911-20-2024 Plan of care note* Care Plan - Karthikeyan Barrera RN - 01/03/2024 10:19 AM EST The patient's goals for the shift include The clinical goals for the shift include progressing Over the shift, the patient did not make progress toward the following goals. Barriers to progression include . Recommendations to address these barriers include . [facility] Work Phone: [phone] 810-419511-20-2024 Consult note* Sheldon Domínguez MD - 01/03/2024 7:32 AM EST Pulmonology consult note Assessment/Plan This is a 68-year-old female with history of asthma, COPD, depression/anxiety, overactive bladder, hyperlipidemia, interstitial lung disease, extensive dynamic airway collapse presented on 01/01 after a fall while walking her dog with associated right chest/rib pain and shortness of breath, worsening requiring Airvo support. 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 Showing poorly formed granulomas, highly suggestive of hypersensitivity pneumonitis. Patient has been counseled on removing the birds from her home previously; we had the same conversation with her. Patientwas previously on steroids and Bactrim for PCP prophylaxis, she states was given instruction to discontinue these. -Reviewed CT scan with the patient. She has bibasilar consolidative opacities in the lower lobes, suggestive of early interstitial lung disease. Thus, we will continue to encourage her to discontinueexposure to the birds to slow the progression. -Not chronically on oxygen. Currently requiring Airvo, 50/50. Wean as able to maintain SpO2 greaterthan 89%. -Obtain ribs view chest x-ray for further evaluation. Encourage incentive spirometer. Aggressive IVhydration. Out of bed as tolerated. -Pain control with lidocaine patch, uptitrate regimen as tolerated and as needed -Recommend CT surgery consultation -DVT prophylaxis, PT/OT History Of Present Illness Nhi Smith is a 68 y.o. female medical history detailed below presented on 01/01 with complaints of right chest/rib pain and associated shortness of breath in addition to right shoulder pain. Shewas walking her dog on Monday morning and fell on her right side on the sidewalk as her dog pulled away. Not on anticoagulation, does take daily aspirin. Pain did not resolve and shortness of breath began to worsen, prompting her arrival to the emergency department. On arrival SpO2 76% on room air, subsequently placed on Airvo. Does not wear oxygen at baseline. By pulmonology at [facility]. Pulmonology consulted for further evaluation and management. CT chest from 01/2023 concerning for hypersensitivity pneumonitis and excessive dynamic airway collapse, underwent elective bronchoscopy in 03/2023 with cryobiopsies. -Medical history: Asthma, COPD, depression/anxiety, overactive bladder, hyperlipidemia, interstitial lung disease, extensive dynamic airway collapse -family history: Mother (diabetes, heart disease, hypertension), father (alcohol abuse, diabetes), brother (alcohol abuse) -Social history: Former smoker ([id number] history), bird antigen exposure (with 10 birds at homefor 3 years and works 1 day a week at [employer] locally) Review of Systems General: denies weight gain, denies loss of appetite, fever, chills, night sweats. HEENT: denies headaches, visual changes, eye pain, tinnitus, nosebleeds, hoarseness or throat pain Respiratory: denies chest tightness, dyspnea, cough and hemoptysis Cardiovascular: denies orthopnea, paroxysmal nocturnal dyspnea, leg swelling, and previous heart attack. Gastrointestinal: denies pain, nausea vomiting, diarrhea, constipation, melena or bleeding. Genitourinary: denies hematuria, frequency, urgency or dysuria Neurology: denies syncope, seizures, paralysis, paraesthesia Endocrine: denies polyuria, polydipsia, skin or hair changes, and heat or cold intolerance Musculoskeletal: denies joint pain, swelling, arthritis or myalgia Hematologic: denies bleeding, adenopathy and easy bruising Skin: denies rashes and skin discoloration Psychiatry: denies depression Physical Exam General appearance: Not in pain or distress HEENT: EOMI, ALLEGRA, pharynx clear, moist mucosa, redness of the uvula appreciated Neck: Supple Chest: Decreased breath sounds throughout,, appropriate respiratory effort: Acute respiratory distress Cardiovascular: Normal S1, S2, regular rate and rhythm, no murmur, rub or gallop Abdomen: Normal sounds present, soft, lax with no tenderness Extremities: No edema. Pulses are equally present. Skin: intact Neurologic: Alert and oriented x 2, no focal deficit, slightly confused Last Recorded Vitals BP 137/63 (BP Location: Left arm, Patient Position: Lying) Pulse 67 Temp 37 C (98.6 F) (Temporal) Resp 17 Wt 88 kg (194 lb 0.1 oz) SpO2 92% Relevant Results Reviewed and independently interpreted CT chest completed on 01/01 showing subtle right anterior fifth and sixth rib fractures, bibasilar consolidative opacities with bronchiectasis. Chest x-ray on 01/01 showing bibasilar atelectasis, comparison with 01/02 showing no changes. Case discussed with primary team STAFF PHYSICIAN NOTE OF PERSONAL INVOLVEMENT IN CARE As the attending physician, I certify that I personally reviewed the patient's history and personally examined the patient to confirm the physical findings described above, and that I reviewed the relevant imaging studies and available reports. I also discussed the differential diagnosis and all ofthe proposed management plans with the patient and individuals accompanying the patient to this visit. They had the opportunity to ask questions about the proposed management plans and to have those questions answered. [facility] Work Phone: [phone]) 947-936611-20-2024 Plan of care note* Care Plan - Melodie Flores RN - 01/03/2024 4:22 AM EST The patient's goals for the shift include Problem: Skin Goal: Decreased wound size/increased tissue granulation at next dressing change Outcome: Progressing Goal: Participates in plan/prevention/treatment measures Outcome: Progressing Goal: Prevent/manage excess moisture Outcome: Progressing Goal: Prevent/minimize sheer/friction injuries Outcome: Progressing Goal: Promote/optimize nutrition Outcome: Progressing Goal: Promote skin healing Outcome: Progressing Problem: Pain Goal: Takes deep breaths with improved pain control throughout the shift Outcome: Progressing Goal: Turns in bed with improved pain control throughout the shift Outcome: Progressing Goal: Walks with improved pain control throughout the shift Outcome: Progressing Goal: Performs ADL's with improved pain control throughout shift Outcome: Progressing Goal: Participates in PT with improved pain control throughout the shift Outcome: Progressing Goal: Free from opioid side effects throughout the shift Outcome: Progressing Goal: Free from acute confusion related to pain meds throughout the shift Outcome: Progressing The clinical goals for the shift include Decrease pain and work of breathing [facility] Work Phone: [phone] 518-611411-20-2024 History and physical note* Hawa Zendejas, CATHRYN-LILIANA - 01/03/2024 12:28 AM EST Trauma History and Physical Subjective Patient is a 68 y.o. female admitted on 01/02/2024 8:38 PM Activation Date: 01/02/24 Activation Time: 2046 Trauma Activation Level: limited Date of injury: 12/30/23 Time of injury: morning HPI: Kassandra Smith is a 68-year-old female with a PMH of asthma, COPD, depression/anxiety, overactive bladder, HLD, and interstitial lung disease. Patient presented to the ED with complaints of right chest/rib pain with shortness of breath, as well as right shoulder pain. Patient states that she was walking her dog on Monday morning and the dog pulled away causing her to fall on her right side on the sidewalk. The patient is unsure if she hit her head or not. Patient is not on any blood thinnersother than ASA 81 mg. The patient states that the pain did not get any better and she was experiencing some shortness of breath, therefore, she decided to come to the ED. Upon arrival, the patient's SpO2 was 76% on room air. Once patient was in an ED bed, she was placed on Airvo. Patient does not wear oxygen at home. Patient denies any lightheadedness, dizziness, palpitations, fever/chills or cough. In the ED, patient had CT A/P, CT cervical spine, CT angio chest, and CT head completed. All were negative for any acute findings except for the CT angio chest, which showed subtle minimally displaced/deformed right anterior fifth and sixth rib fractures with no sizable pneumothorax identified. TheCT chest also showed hazy airspace opacities that could be related to air trapping, infection, or inflammatory changes. Patient did have some mild leukocytosis of 12.0 on her ED lab work. Patient also had an elevated alkaline phosphatase at 170, and a slightly elevated troponin at 15. Mechanism of injury: fall Method of Arrival: private vehicle Prior to arrival: none PRIMARY SURVEY: Airway: intact Breathing: labored Circulation: pulses intact and equal Disability: GCS 15, A&Ox3 Exposure/Environment: clothing removed, injuries noted Procedures: none SECONDARY SURVEY: Past Medical History: Diagnosis Date Asthma ([facility] May 2021 Vaginal discharge 10/11/2022 Vaginal itching 10/11/2022 Past Surgical History: Procedure Laterality Date SECTION, CLASSIC 11/11/2015 Section SECTION, LOW TRANSVERSE July 1975 CHOLECYSTECTOMY GALLBLADDER SURGERY 11/11/2015 Gallbladder Surgery (Not in a hospital admission) Patient has no known allergies. Social History Tobacco Use Smoking status: Former Current packs/day: 1.00 Average packs/day: 1 pack/day for 10.0 years (10.0 ttl pk-yrs) Types: Cigarettes Smokeless tobacco: Never Vaping Use Vaping status: Never Used Substance Use Topics Alcohol use: Never Drug use: Never Family History Problem Relation Name Age of Onset Diabetes Mother Darby Heart disease Mother Darby Hypertension Mother Darby Alcohol abuse Father Raleigh Diabetes Father Raleigh Alcohol abuse Brother Bryant Cancer Mother's Sister Liliana Objective Vitals: Most Recent: Vitals: 01/02/24 2230 BP: 137/68 Pulse: 92 Resp: (!) 22 Temp: SpO2: 95% 24hr Min/Max: Temp Min: 37.4 C (99.3 F) Max: 37.4 C (99.3 F) Pulse Min: 84 Max: 97 BP Min: 133/64 Max: 137/68 Resp Min: 17 Max: 24 SpO2 Min: 76 % Max: 98 % Hemodynamic parameters for last 24 hours: No intake/output data recorded. Physical exam: NEURO: A&O x3, GCS, CN II-XII intact, MORLEY equally, muscle strength 5/5, no sensory deficits HEENT: Head: NC/AT, No lacerations or abrasions, no bony step offs, midface stable. Eye: PERRL, EOMI. Ears: Canals without blood or CSF drainage, TMs clear, external ear without laceration. Nose: Nasal septum midline, no crepitus or septal hematoma. Throat: Oral mucosa and tongue without lacerations, teeth in place. NECK: No cervical spine tenderness or step offs, no lacerations or abrasions, tracheal midline. No JVD. RESPIRATORY/CHEST: No abrasions, contusions, crepitus to palpation. Tenderness to palpation over anterior aspect of right 5th and 6th ribs, just under her breast. Non-labored, equal chest expansion, CTAB, no wheezes/rhonchi.Unable to take a full deep breath without pain. Currently on Airvo CV: RRR, __ on tele, S1 and S2, no M/R/G. Pulses bilateral: 2+ radial, 2+DP, 2+PT, 2+femoral and 2+carotid. Cap refill < 2sec ABDOMEN: soft, nontender, nondistended, +BS. No scars, abrasions or lacerations. PELVIS: Stable to AP and lateral compression BACK/SPINE: No T/L spine tenderness, no step offs or deformity noted. No abrasions, hematomas or lacerations noted. EXTREMITIES: No edema or cyanosis. Normal ROM w/o pain to LUE and BLE. RUE with limited ROM due to shoulder pain. No deformities, lacerations or contusions. SKIN: warm and dry, no rash or lesions. Lab/Radiology/Diagnostic Review: Results for orders placed or performed during the hospital encounter of 01/02/24 (from the past 24 hours) CBC and Auto Differential Result Value Ref Range WBC 12.0 (H) 4.4 - 11.3 x10*3/uL nRBC 0.0 0.0 - 0.0 /100 WBCs RBC 5.03 4.00 - 5.20 x10*6/uL Hemoglobin 16.8 (H) 12.0 - 16.0 g/dL Hematocrit 50.8 (H) 36.0 - 46.0 % MCV 101 (H) 80 - 100 fL MCH 33.4 26.0 - 34.0 pg MCHC 33.1 32.0 - 36.0 g/dL RDW 13.2 11.5 - 14.5 % Platelets 220 150 - 450 x10*3/uL Neutrophils % 79.0 40.0 - 80.0 % Immature Granulocytes %, Automated 0.4 0.0 - 0.9 % Lymphocytes % 10.4 13.0 - 44.0 % Monocytes % 6.2 2.0 - 10.0 % Eosinophils % 3.2 0.0 - 6.0 % Basophils % 0.8 0.0 - 2.0 % Neutrophils Absolute 9.50 (H) 1.20 - 7.70 x10*3/uL Immature Granulocytes Absolute, Automated 0.05 0.00 - 0.70 x10*3/uL Lymphocytes Absolute 1.25 1.20 - 4.80 x10*3/uL Monocytes Absolute 0.74 0.10 - 1.00 x10*3/uL Eosinophils Absolute 0.38 0.00 - 0.70 x10*3/uL Basophils Absolute 0.10 0.00 - 0.10 x10*3/uL Comprehensive Metabolic Panel Result Value Ref Range Glucose 91 74 - 99 mg/dL Sodium 139 136 - 145 mmol/L Potassium 4.3 3.5 - 5.3 mmol/L Chloride 102 98 - 107 mmol/L Bicarbonate 25 21 - 32 mmol/L Anion Gap 16 10 - 20 mmol/L Urea Nitrogen 18 6 - 23 mg/dL Creatinine 1.07 (H) 0.50 - 1.05 mg/dL eGFR 57 (L) >60 mL/min/1.73m*2 Calcium 10.7 (H) 8.6 - 10.3 mg/dL Albumin 4.9 3.4 - 5.0 g/dL Alkaline Phosphatase 170 (H) 33 - 136 U/L Total Protein 9.0 (H) 6.4 - 8.2 g/dL AST 23 9 - 39 U/L Bilirubin, Total 0.8 0.0 - 1.2 mg/dL ALT 17 7 - 45 U/L Magnesium Result Value Ref Range Magnesium 2.29 1.60 - 2.40 mg/dL Troponin I, High Sensitivity, Initial Result Value Ref Range Troponin I, High Sensitivity 3 0 - 13 ng/L Coagulation Screen Result Value Ref Range Protime 12.8 9.8 - 12.8 seconds INR 1.1 0.9 - 1.1 aPTT 29 27 - [address] angio chest for pulmonary embolism Result Date: 01/02/2024 Interpreted By: Beba Rao, STUDY: CT ANGIO CHEST FOR PULMONARY EMBOLISM; CT ABDOMEN PELVIS W IV CONTRAST; 01/02/2024 9:18 pm INDICATION: Signs/Symptoms:Fall from ground-level hypoxic. COMPARISON: None. ACCESSION NUMBER(S): [id number]; [id number] ORDERING CLINICIAN: NILSA QUINTERO TECHNIQUE: Contiguous axial images of the chest were obtained after the intravenous administration of contrast using angiographic PE protocol. Coronal and sagittal reformatted images were reconstructed from the axial data. MIP images were created and reviewed. Axial CT images of the abdomen and pelvis with coronal and sagittal reconstructed images obtained after intravenous administration of . FINDINGS: MEDIASTINUM AND LYMPH NODES: No enlarged intrathoracic or axillary lymph nodes. Small hiatal hernia. No pneumomediastinum. VESSELS: Normal caliber aorta without significant aortic atherosclerosis. Evaluation of the pulmonary arteries is partially limited by contrast bolus and patient body habitus.No definite pulmonary embolism identified to the segmental level. HEART: Normal in size. No significant coronary artery calcifications. No significant pericardial effusion. LUNG, AIRWAYS, AND PLEURA:Scattered hazy and interstitial opacities. Lower lobe bronchiectasis with bronchial wall thickeningand bibasilar consolidative opacities. No sizable pneumothorax or pleural effusion. OSSEOUS STRUCTURES/CHEST WALL: Subtle rib deformities noted along the anterior right 5th and 6th ribs (annotated onseries 401). Degenerative changes of the thoracic spine. The sternum appears intact. ABDOMEN: BONES: No acute osseous abnormality. Multilevel degenerative changes. Subtle deformity of the distal sacrum (series 503, image 62) which is age indeterminate. ABDOMINAL WALL: Fat containing left inguinal he rnia. LIVER: 19.3 cm, enlarged. BILE DUCTS: Biliary ductal dilatation with the common bile duct measuring up to 11 mm and mild central biliary ductal dilatation, within normal limits in the post cholecystectomy state. GALLBLADDER: Surgically absent. PANCREAS: Within normal limits. SPLEEN: Within normal limits. ADRENALS: Within normal limits. KIDNEYS AND URETERS: Symmetric renal enhancement. No hydronephrosis or perinephric fluid collection. No hydroureter. VESSELS: Atherosclerotic calcifications without aneurysmal dilatation seen. RETROPERITONEUM: Within normal limits. PELVIS: REPRODUCTIVE ORGANS: No pelvic mass or significant free pelvic fluid. BLADDER: Within normal limits. BOWEL: Significant colonic stool burden. The distal colon is decompressed partially limiting evaluation. Diverticulosis without CT evidence of acute diverticulitis. PERITONEUM: No ascites or free air, no fluid collection. Partially limited evaluation of the pulmonary arteries otherwise no discrete pulmonary embolism identified to the segmental level. Subtle minimally displaced/deformed right anterior 5th and 6th rib fractures. No sizable pneumothorax is identified. Hazy parenchymal airspace opacities which could be r elated to air trapping, infection or inflammatory changes. Bibasilar are consolidative opacities with bronchiectasis and bronchial wall thickening may be related to aspiration pneumonitis or infection. No acute abnormality of the abdomen and pelvis. Chronic changes including hepatomegaly, significant stool burden and additional findings as detailed. MACRO: None. Signed by: Beba Rao 01/02/2024 10:01 PM Dictation workstation: [id number] CT abdomen pelvis w IV contrast Result Date: 01/02/2024 Interpreted By: Beba Rao, STUDY: CT ANGIO CHEST FOR PULMONARY EMBOLISM; CT ABDOMEN PELVIS W IV CONTRAST; 01/02/2024 9:18 pm INDICATION: Signs/Symptoms:Fall from ground-level hypoxic. COMPARISON: None. ACCESSION NUMBER(S): [id number]; [id number] ORDERING CLINICIAN: NILSA QUINTERO TECHNIQUE: Contiguous axial images of the chest were obtained after the intravenous administration of contrast using angiographic PE protocol. Coronal and sagittal reformatted images were reconstructed from the axial data. MIP images were created and reviewed. Axial CT images of the abdomen and pelvis with coronal and sagittal reconstructed images obtained after intravenous administration of . FINDINGS: MEDIASTINUM AND LYMPH NODES: No enlarged intrathoracic or axillary lymph nodes. Small hiatal hernia. No pneumomediastinum. VESSELS: Normal caliber aorta without significant aortic atherosclerosis. Evaluation of the pulmonary arteries is partially limited by contrast bolus and patient body habitus.No definite pulmonary embolism identified to the segmental level. HEART: Normal in size. No significant coronary artery calcifications. No significant pericardial effusion. LUNG, AIRWAYS, AND PLEURA:Scattered hazy and interstitial opacities. Lower lobe bronchiectasis with bronchial wall thickeningand bibasilar consolidative opacities. No sizable pneumothorax or pleural effusion. OSSEOUS STRUCTURES/CHEST WALL: Subtle rib deformities noted along the anterior right 5th and 6th ribs (annotated onseries 401). Degenerative changes of the thoracic spine. The sternum appears intact. ABDOMEN: BONES: No acute osseous abnormality. Multilevel degenerative changes. Subtle deformity of the distal sacrum (series 503, image 62) which is age indeterminate. ABDOMINAL WALL: Fat containing left inguinal he rnia. LIVER: 19.3 cm, enlarged. BILE DUCTS: Biliary ductal dilatation with the common bile duct measuring up to 11 mm and mild central biliary ductal dilatation, within normal limits in the post cholecystectomy state. GALLBLADDER: Surgically absent. PANCREAS: Within normal limits. SPLEEN: Within normal limits. ADRENALS: Within normal limits. KIDNEYS AND URETERS: Symmetric renal enhancement. No hydronephrosis or perinephric fluid collection. No hydroureter. VESSELS: Atherosclerotic calcifications without aneurysmal dilatation seen. RETROPERITONEUM: Within normal limits. PELVIS: REPRODUCTIVE ORGANS: No pelvic mass or significant free pelvic fluid. BLADDER: Within normal limits. BOWEL: Significant colonic stool burden. The distal colon is decompressed partially limiting evaluation. Diverticulosis without CT evidence of acute diverticulitis. PERITONEUM: No ascites or free air, no fluid collection. Partially limited evaluation of the pulmonary arteries otherwise no discrete pulmonary embolism identified to the segmental level. Subtle minimally displaced/deformed right anterior 5th and 6th rib fractures. No sizable pneumothorax is identified. Hazy parenchymal airspace opacities which could be r elated to air trapping, infection or inflammatory changes. Bibasilar are consolidative opacities with bronchiectasis and bronchial wall thickening may be related to aspiration pneumonitis or infection. No acute abnormality of the abdomen and pelvis. Chronic changes including hepatomegaly, significant stool burden and additional findings as detailed. MACRO: None. Signed by: Beba Rao 01/02/2024 10:01 PM Dictation workstation: [id number] CT head wo IV contrast Result Date: 01/02/2024 Interpreted By: Beba Rao, STUDY: CT HEAD WO IV CONTRAST; CT CERVICAL SPINE WO IV CONTRAST; 01/02/2024 9:18 pm INDICATION: Signs/Symptoms:fall. COMPARISON: None. ACCESSION NUMBER(S): [id number]; [id number] ORDERING CLINICIAN: NILSA QUINTERO TECHNIQUE: Noncontrast CT images of head. Axial noncontrast CT images of the cervical spine with coronal and sagittal reconstructed images. FINDINGS: BRAIN PARENCHYMA: Hylton-white matter interfaces are preserved. No mass effect or midline shift. Generalized parenchymal volume loss noted with concordant ventricular enlargement. Non-specific white matter changes noted, which may be related to small vessel disease. HEMORRHAGE: No acute intracranial hemorrhage. VENTRICLES and EXTRA-AXIAL SPACES: Normal size. EXTRACRANIAL SOFT TISSUES: Within normal limits. PARANASAL SINUSES/MASTOIDS: The visualized paranasal sinuses and mastoid air cells are aerated. CALVARIUM: No depressed skull fracture. No destructive osseous lesion. OTHER FINDINGS: None. CERVICAL SPINE: ALIGNMENT: Normal. VERTEBRAE: No acute fracture. SPINAL CANAL: Degenerative changes facet and uncinate arthropathy, as well as disc space narrowing and end plate hypertrophy. Vrxe-nk-tritwacz right foraminal narrowing C4-C5. Bvgr-dz-flicefth bilateral foraminal narrowing C5-C6. No critical canal stenosis. PREVERTEBRAL SOFT TISSUES: No prevertebral soft tissue swelling. LUNG APICES: Biapical ground-glass interstitial airspace approximately. OTHER FINDINGS: None. No acute intracranial hemorrhage or mass effect. No acute fracture or traumatic subluxation of the cervical spine. MACRO: None. Signed by: Beba Rao 01/02/2024 9:49 PM Dictation workstation: [id number] CT cervical spine wo IV contrast Result Date: 01/02/2024 Interpreted By: Beba Rao, STUDY: CT HEAD WO IV CONTRAST; CT CERVICAL SPINE WO IV CONTRAST; 01/02/2024 9:18 pm INDICATION: Signs/Symptoms:fall. COMPARISON: None. ACCESSION NUMBER(S): [id number]; [id number] ORDERING CLINICIAN: NILSA QUINTERO TECHNIQUE: Noncontrast CT images of head. Axial noncontrast CT images of the cervical spine with coronal and sagittal reconstructed images. FINDINGS: BRAIN PARENCHYMA: Hylton-white matter interfaces are preserved. No mass effect or midline shift. Generalized parenchymal volume loss noted with concordant ventricular enlargement. Non-specific white matter changes noted, which may be related to small vessel disease. HEMORRHAGE: No acute intracranial hemorrhage. VENTRICLES and EXTRA-AXIAL SPACES: Normal size. EXTRACRANIAL SOFT TISSUES: Within normal limits. PARANASAL SINUSES/MASTOIDS: The visualized paranasal sinuses and mastoid air cells are aerated. CALVARIUM: No depressed skull fracture. No destructive osseous lesion. OTHER FINDINGS: None. CERVICAL SPINE: ALIGNMENT: Normal. VERTEBRAE: No acute fracture. SPINAL CANAL: Degenerative changes facet and uncinate arthropathy, as well as disc space narrowing and end plate hypertrophy. Eglg-ar-cklqigbb right foraminal narrowing C4-C5. Fjsu-bo-kwkjyjao bilateral foraminal narrowing C5-C6. No critical canal stenosis. PREVERTEBRAL SOFT TISSUES: No prevertebral soft tissue swelling. LUNG APICES: Biapical ground-glass interstitial airspace approximately. OTHER FINDINGS: None. No acute intracranial hemorrhage or mass effect. No acute fracture or traumatic subluxation of the cervical spine. MACRO: None. Signed by: Beba Rao 01/02/2024 9:49 PM Dictation workstation: [id number] XR chest 1 view Result Date: 01/02/2024 Interpreted By: Kristofer Loyd, STUDY: XR CHEST 1 VIEW; 01/02/2024 9:03 pm INDICATION: Signs/Symptoms:Hypoxia. COMPARISON: None. ACCESSION NUMBER(S): [id number] ORDERING CLINICIAN: NILSA QUINTERO FINDINGS: The cardiomediastinal silhouette and pulmonary vasculature are within normal limits. Mild bibasilar atelectasis. No consolidation, pleural effusion or pneumothorax. No acute cardiopulmonary process. Mild bibasilar atelectasis. MACRO: None. Signed by: Kristofer Loyd 01/02/2024 9:21 PM Dictation workstation: [id number] Assessment /Plan Kassandra Smith is a 68-year-old female with a PMH of asthma, COPD, depression/anxiety, overactive bladder, HLD, and interstitial lung disease. Patient presented to the ED with complaints of right chest/rib pain, as well as right shoulder pain. Patient states that she was walking her dog on Monday morning and the dog pulled away causing her to fall on her right side on the sidewalk. The patientis unsure if she hit her head or not. Patient is not on any blood thinners other than ASA 81 mg. The patient states that the pain did not get any better and she was experiencing some shortness of breath, therefore, she decided to come to the ED. Upon arrival, the patient's SpO2 was 76% on room air.Once patient was in an ED bed, she was placed on Airvo. In the ED, patient had CT A/P, CT cervical spine, CT angio chest, and CT head completed. All were negative for any acute findings except for the CT angio chest, which showed subtle minimally displaced/deformed right anterior fifth and sixth rib fractures with no sizable pneumothorax identified. TheCT chest also showed hazy airspace opacities that could be related to air trapping, infection, or inflammatory changes. Patient will be admitted to the trauma service with consults to respiratory therapy, internal medicine/PCP Dr. Escobedo, and pulmonology. List of Injuries: #Right 5th and 6th rib fractures #Right shoulder pain #Acute hypoxia #Right 5th and 6th rib fractures - Admit to trauma service on stepdown unit - No surgical intervention indicated - Regular diet - Multimodal pain management > Scheduled Tylenol > Scheduled Ibuprofen > Scheduled gabapentin > Lidocaine patch > Scheduled mag -ox > PRN narcotics - Repeat CXR in AM - Labs in AM - IS every hour - Pulmonary hygiene - Continuous pulse ox - PT/OT #Right shoulder pain - XR ordered-no acute osseous abnormality - Multimodal pain management - PT/OT #Acute hypoxia - On Airvo - Consult respiratory therapy for Airvo management - Consult Pulmonology >patient sees Dr Mckeon at [facility] - Continuous pulse ox Chronic conditions #Asthma/COPD #Interstitial Lung Disease #Depression/Anxiety #Overactive bladder #HLD - Consult PCP/Dr Escobedo for medical management in conjunction with pulmonology - Continue home medications Dispo: Patient not medically ready for discharge. Patient will likely be in the hospital for 2 to 3days, mostly depending on pulmonary function. Patient seen and discussed with attending driver lifter of sanitation truck surgeon Dr. Wade. ALMA Hernandez [facility] Work Phone: [phone] NotePartially limited evaluation of the pulmonary arteries otherwise no discrete pulmonary embolism identified to the segmental level. Subtle minimally displaced/deformed right anterior 5th and 6th rib fractures. No sizable pneumothorax is identified. Hazy parenchymal airspace opacities which could be related to air trapping, infection or inflammatory changes. Bibasilar are consolidative opacities with bronchiectasis and bronchial wall thickening may be related to aspiration pneumonitis or infection. No acute abnormality of the abdomen and pelvis. Chronic changes including hepatomegaly, significant stool burden and additional findings as detailed. MACRO: None. Signed by: Beab Rao 01/02/2024 10:01 PM Dictation workstation: [id number] NotePartially limited evaluation of the pulmonary arteries otherwise no discrete pulmonary embolism identified to the segmental level. Subtle minimally displaced/deformed right anterior 5th and 6th rib fractures. No sizable pneumothorax is identified. Hazy parenchymal airspace opacities which could be related to air trapping, infection or inflammatory changes. Bibasilar are consolidative opacities with bronchiectasis and bronchial wall thickening may be related to aspiration pneumonitis or infection. No acute abnormality of the abdomen and pelvis. Chronic changes including hepatomegaly, significant stool burden and additional findings as detailed. MACRO: None. Signed by: Beba Rao 01/02/2024 10:01 PM Dictation workstation: [id number] Emergency department Note * Nilsa Quintero DO - 01/02/2024 7:56 PM EST EMERGENCY DEPARTMENT ENCOUNTER Pt Name: Kassandra Smith Birthdate 1955 Date of evaluation: 01/02/2024 Provider: Nilsa Quintero DO CHIEF COMPLAINT Chief Complaint Patient presents with Shortness of Breath Rib Injury HISTORY OF PRESENT ILLNESS Kassandra Smith is a 68 y.o. female who presents to the emergency department with Her self for persistent right rib pain and shortness of breath status post fall this past Monday. She states thisis ground-level subsequently falling on the concrete. She denies any close head injury or loss of consciousness. She is not on anticoagulation. She endorses a history of asthma and is a current non-sm oker. Denies any flulike symptoms fevers or cough. Due to persistent shortness of breath and pain she is presenting today for further evaluation. Nursing Notes were reviewed. REVIEW OF SYSTEMS CONSTITUTIONAL: Denies fever, sweats, chills. NEURO: Denies difficulty walking, numbness, weakness, tingling, headache. HEENT: Denies sore throat, rhinorrhea, changes in vision. CARDIO: Denies chest pain, palpitations. PULM: Endorses shortness of breath. Denies cough. GI: Denies abdominal pain, nausea, vomiting, diarrhea, constipation, melena, hematochezia. : Denies painful urination, frequency, hematuria. MSK: Endorses rib pain. SKIN: Denies rash, lesions. ENDOCRINE: Denies unexpected weight-loss. HEME: Denies bleeding disorder. PAST MEDICAL HISTORY Past Medical History: Diagnosis Date Asthma ([facility] May 2021 Vaginal discharge 10/11/2022 Vaginal itching 10/11/2022 SURGICAL HISTORY Past Surgical History: Procedure Laterality Date SECTION, CLASSIC 11/11/2015 Section SECTION, LOW TRANSVERSE July 1975 CHOLECYSTECTOMY GALLBLADDER SURGERY 11/11/2015 Gallbladder Surgery ALLERGIES Patient has no known allergies. FAMILY HISTORY Family History Problem Relation Name Age of Onset Diabetes Mother Darby Heart disease Mother Darby Hypertension Mother Darby Alcohol abuse Father Raleigh Diabetes Father Raleigh Alcohol abuse Brother Bryant Cancer Mother's Sister Liliana SOCIAL HISTORY Social History Socioeconomic History Marital status: Single Tobacco Use Smoking status: Former Current packs/day: 1.00 Average packs/day: 1 pack/day for 10.0 years (10.0 ttl pk-yrs) Types: Cigarettes Smokeless tobacco: Never Vaping Use Vaping status: Never Used Substance and Sexual Activity Alcohol use: Never Drug use: Never Sexual activity: Not Currently Partners: Female control/protection: Condom Male PHYSICAL EXAM VS: As documented in the triage note from today's date and EMR flowsheet were reviewed. Gen: Well developed. No acute distress. Seated in bed. Appears nontoxic. GCS 15 Skin: Warm. Dry. Intact. No rashes or lesions. Eyes: Pupils equally round and reactive to light. Clear sclera. EOMI. HENT: Atraumatic appearance. Mucosal membranes moist. No oral lesions, uvula midline, airway patent. TMs clear bilaterally nares clear bilaterally no evidence of basilar skull fracture no midline cervical tenderness or step-offs. CV: Regular rate and regular rhythm. S1, S2. No pedal edema. Warm extremities. Resp: Nonlabored breathing Clear to auscultation bilaterally. No increased work of breathing. GI: Soft and nontender. No rebound or guarding. Bowel sounds x4 present. MSK: Symmetric muscle bulk. No joint swelling in the extremities. Compartments are soft. Neurovascularly intact x4 extremities. Radial pulses +2 equal bilaterally. Pedal pulses +2 equal bilaterally. Extremities atraumatic. There is reproducible right lateral rib pain no crepitance. No TL spine tenderness. Neuro: Alert. CN II - XII intact. Speech fluent. Moving all extremities. No focal deficits. Gait normal. Psych: Appropriate. [place]. DIAGNOSTIC RESULTS RADIOLOGY: Non-plain film images such as CT, Ultrasound and MRI are read by the radiologist. Plain radiographic images are visualized and preliminarily interpreted by the emergency physician with the below findings: Chest x-ray no evidence of pneumothorax. Interpretation per the Radiologist below, if available at the time of this note: XR shoulder right 2+ views Final Result No acute osseous abnormality of the right shoulder. MACRO: None. Signed by: Kristofer Loyd 01/02/2024 11:56 PM Dictation workstation: [id number] CT head wo IV contrast Final Result No acute intracranial hemorrhage or mass effect. No acute fracture or traumatic subluxation of the cervical spine. MACRO: None. Signed by: Beba Rao 01/02/2024 9:49 PM Dictation workstation: [id number] CT cervical spine wo IV contrast Final Result No acute intracranial hemorrhage or mass effect. No acute fracture or traumatic subluxation of the cervical spine. MACRO: None. Signed by: Beba Rao 01/02/2024 9:49 PM Dictation workstation: [id number] CT angio chest for pulmonary embolism Final Result Partially limited evaluation of the pulmonary arteries otherwise no discrete pulmonary embolism identified to the segmental level. Subtle minimally displaced/deformed right anterior 5th and 6th rib fractures. No sizable pneumothorax is identified. Hazy parenchymal airspace opacities which could be related to air trapping, infection or inflammatory changes. Bibasilar are consolidative opacities with bronchiectasis and bronchial wall thickening may be related to aspiration pneumonitis or infection. No acute abnormality of the abdomen and pelvis. Chronic changes including hepatomegaly, significant stool burden and additional findings as detailed. MACRO: None. Signed by: Beba Rao 01/02/2024 10:01 PM Dictation workstation: [id number] CT abdomen pelvis w IV contrast Final Result Partially limited evaluation of the pulmonary arteries otherwise no discrete pulmonary embolism identified to the segmental level. Subtle minimally displaced/deformed right anterior 5th and 6th rib fractures. No sizable pneumothorax is identified. Hazy parenchymal airspace opacities which could be related to air trapping, infection or inflammatory changes. Bibasilar are consolidative opacities with bronchiectasis and bronchial wall thickening may be related to aspiration pneumonitis or infection. No acute abnormality of the abdomen and pelvis. Chronic changes including hepatomegaly, significant stool burden and additional findings as detailed. MACRO: None. Signed by: Beba Rao 01/02/2024 10:01 PM Dictation workstation: [id number] XR chest 1 view Final Result No acute cardiopulmonary process. Mild bibasilar atelectasis. MACRO: None. Signed by: Kristofer Loyd 01/02/2024 9:21 PM Dictation workstation: [id number] ED BEDSIDE ULTRASOUND: Performed by ED Physician - none LABS: Labs Reviewed CBC WITH AUTO DIFFERENTIAL - Abnormal Result Value WBC 12.0 (*) nRBC 0.0 RBC 5.03 Hemoglobin 16.8 (*) Hematocrit 50.8 (*) MCV 101 (*) MCH 33.4 MCHC 33.1 RDW 13.2 Platelets 220 Neutrophils % 79.0 Immature Granulocytes %, Automated 0.4 Lymphocytes % 10.4 Monocytes % 6.2 Eosinophils % 3.2 Basophils % 0.8 Neutrophils Absolute 9.50 (*) Immature Granulocytes Absolute, Automated 0.05 Lymphocytes Absolute 1.25 Monocytes Absolute 0.74 Eosinophils Absolute 0.38 Basophils Absolute 0.10 COMPREHENSIVE METABOLIC PANEL - Abnormal Glucose 91 Sodium 139 Potassium 4.3 Chloride 102 Bicarbonate 25 Anion Gap 16 Urea Nitrogen 18 Creatinine 1.07 (*) eGFR 57 (*) Calcium 10.7 (*) Albumin 4.9 Alkaline Phosphatase 170 (*) Total Protein 9.0 (*) AST 23 Bilirubin, Total 0.8 ALT 17 SERIAL TROPONIN, 1 HOUR - Abnormal Troponin I, High Sensitivity 15 (*) Narrative: Less than 99th percentile of normal range cutoff- Female and children under 18 years old <14 ng/L; Male <21 ng/L: Negative Repeat testing should be performed if clinically indicated. Female and children under 18 years old 14-50 ng/L; Male 21-50 ng/L: Consistent with possible cardiac damage and possible increased clinical risk. Serial measurements may help to assess extent of myocardial damage. >50 ng/L: Consistent with cardiac damage, increased clinical risk and myocardial infarction. Serial measurements may help assess extent of myocardial damage. NOTE: Children less than 1 year old may have higher baseline troponin levels and results should be interpreted in conjunction with the overall clinical context. NOTE: Troponin I testing is performed using a different testing methodology at [facility] than at other [facility]. Direct result comparisons should only be made within the same method. MAGNESIUM - Normal Magnesium 2.29 SERIAL TROPONIN-INITIAL - Normal Troponin I, High Sensitivity 3 Narrative: Less than 99th percentile of normal range cutoff- Female and children under 18 years old <14 ng/L; Male <21 ng/L: Negative Repeat testing should be performed if clinically indicated. Female and children under 18 years old 14-50 ng/L; Male 21-50 ng/L: Consistent with possible cardiac damage and possible increased clinical risk. Serial measurements may help to assess extent of myocardial damage. >50 ng/L: Consistent with cardiac damage, increased clinical risk and myocardial infarction. Serial measurements may help assess extent of myocardial damage. NOTE: Children less than 1 year old may have higher baseline troponin levels and results should be interpreted in conjunction with the overall clinical context. NOTE: Troponin I testing is performed using a different testing methodology at [facility] than at [facility]. Direct result comparisons should only be made within the same method. COAGULATION SCREEN - Normal Protime 12.8 INR 1.1 aPTT 29 Narrative: The APTT is no longer used for monitoring Unfractionated Heparin Therapy. For monitoring Heparin Therapy, use the Heparin Assay. TROPONIN SERIES- (INITIAL, 1 HR) Narrative: The following orders were created for panel order Troponin I Series, High Sensitivity (0, 1 HR). Procedure Abnormality Status --------- ------ Troponin I, High Sensiti...[[id number]] Normal Final result Troponin, High Sensitivi...[[id number]] Abnormal Final result Please view results for these tests on the individual orders. CBC COMPREHENSIVE METABOLIC PANEL All other labs were within normal range or not returned as of this dictation. EMERGENCY DEPARTMENT COURSE/MDM: Vitals: Vitals: 01/02/24 2154 01/02/24 2155 01/02/24 2200 01/02/24 2230 BP: 133/64 137/68 Patient Position: Lying Pulse: 84 92 Resp: 17 (!) 22 Temp: SpO2: 94% 94% 98% 95% Weight: Height: I reviewed the patient's triage vitals and they are hemodynamically stable although hypoxic to the 70s on room air. Patient was placed on nasal cannula 6 L improved to the low 90s. Due to the above findings the following was ordered limited trauma CT imaging the head cervical spine chest abdomen pelvis basic labs. Lab work no significant electrolyte derangements noted patient is recommended close outpatient follow-up with alkaline phosphatase no right upper quadrant tenderness. Mild PETRONA encouraged p.o. intake.Cardiac troponin no significant delta change no acute injury pattern on EKG doubt atypical ACS at this time. She is hemoconcentrated. Again recommended hydration. There is a leukocytosis I do believethis is likely reactive secondary to right x 2 rib fractures. Potential consolidation versus pulmonary contusion. Patient has no infectious etiology or story concerning for pneumonia I do believe this is pulmonary contusion. She is placed on high flow nasal cannula for comfort continues to saturateappropriately no indication for noninvasive positive pressure. All incidental findings on CT imaging were thoroughly discussed with the patient and recommended close outpatient follow-up. I did discuss findings with the trauma service who evaluated the patient in the emergency department. They haveagreed to accept the patient to their service for further treatment and evaluation. is the a ccepting physician they did take over care at time of admission order. Patient is appreciative of care. ED Course as of 01/03/2421e Jan 02, 20242058 Interpreted by the Emergency Department Attending: ECG revealed normal sinus rhythm at a rate of 91 beats per minute with DC interval 164 , QRS of 72 , QTc of 423. No acute injury pattern. Previous EKG on December 04 revealed nonspecific changes. [MG] ED Course User Index [MG] Nilsa Quintero DO Diagnoses as of 01/03/2421 Closed fracture of multiple ribs of right side, initial encounter Contusion of right lung, initial encounter Patient was counseled regarding labs, imaging, likely diagnosis, and plan. All questions were answered. Information provided by the patient Consults trauma surgery Past medical history complicating workup asthma Previous medical records reviewed office visit 10/23/2023 Considered viral swabs although no indication no infectious etiology Shared medical decision making patient agreeable with hospital admission for further workup. ED Medications administered this visit: Medications oxygen (O2) therapy (60 L/min inhalation Start 01/02/242153) buPROPion XL (Wellbutrin XL) 24 hr tablet 150 mg (has no administration in time range) citalopram (CeleXA) tablet 40 mg (has no administration in time range) atorvastatin (Lipitor) tablet 80 mg (has no administration in time range) fluticasone furoate-vilanteroL (Breo Ellipta) 200-25 mcg/dose inhaler 1 puff (has no administrationin time range) enoxaparin (Lovenox) syringe 30 mg (has no administration in time range) polyethylene glycol (Glycolax, Miralax) packet 17 g (has no administration in time range) ondansetron (Zofran) tablet 4 mg (has no administration in time range) Or ondansetron (Zofran) injection 4 mg (has no administration in time range) acetaminophen (Tylenol) tablet 975 mg (has no administration in time range) ibuprofen tablet 600 mg (has no administration in time range) lidocaine 4 % patch 1 patch (has no administration in time range) methocarbamol (Robaxin) tablet 500 mg (has no administration in time range) gabapentin (Neurontin) capsule 100 mg (has no administration in time range) oxyCODONE (Roxicodone) immediate release tablet 5 mg (has no administration in time range) oxyCODONE (Roxicodone) immediate release tablet 10 mg (has no administration in time range) magnesium oxide (Mag-Ox) tablet 400 mg (has no administration in time range) oxybutynin (Ditropan) tablet 5 mg (has no administration in time range) albuterol 90 mcg/actuation inhaler 2 puff (has no administration in time range) albuterol 2.5 mg /3 mL (0.083 %) nebulizer solution 2.5 mg (has no administration in time range) iohexol (OMNIPaque) 350 mg iodine/mL solution 75 mL (75 mL intravenous Given 01/02/242116) Final Impression: 1. Closed fracture of multiple ribs of right side, initial encounter 2. Contusion of right lung, initial encounter Nilsa Quintero DO (Please note that portions of this note were completed with a voice recognition program. Efforts were made to edit the dictations but occasionally words are mis-transcribed.) Nilsa Quintero DO 01/03/24 0028 * Hawa Sloan RN - 01/02/2024 7:56 PM EST Pt fell Monday, she was walking her dog and the dog pulled her causing the fall. She hit her right shoulder and right ribs. Denies any LOC and she is not on any blood thinners. She has been experiencing increased shortness of breath, SPO2 76% at time of triage. [facility]: 1(944) 998-318511-19-2024 Emergency department Triage note* Hawa Sloan RN - 01/02/2024 7:56 PM EST Pt fell Monday, she was walking her dog and the dog pulled her causing the fall. She hit her right shoulder and right ribs. Denies any LOC and she is not on any blood thinners. She has been experiencing increased shortness of breath, SPO2 76% at time of triage. [facility] Work Phone: 1(208) 426-952011-19-2024 Note* ED Procedure Note - Nilsa Quintero DO - 01/02/2024 7:56 PM ESTAssociated Order(s): Critical Care Procedure Critical Care Performed by: Nilsa Quintero DO Authorized by: Nilsa Quintero DO Critical care provider statement: Critical care time (minutes): 37 Critical care time was exclusive of: Separately billable procedures and treating other patients andteaching time Critical care was necessary to treat or prevent imminent or life-threatening deterioration of the following conditions: Trauma Critical care was time spent personally by me on the following activities: Ordering and performing treatments and interventions, ordering and review of laboratory studies, ordering and review of radiographic studies, pulse oximetry, review of old charts, re-evaluation of patient's condition, examination of patient, evaluation of patient's response to treatment and discussions with consultants Care discussed with: admitting provider Nilsa Quintero DO 01/03/24 0029 [facility] Work Phone: 1([phone]) 178-986011-19-2024 Physician Emergency department Note* Nilsa Quintero DO - 01/02/2024 7:56 PM EST EMERGENCY DEPARTMENT ENCOUNTER Pt Name: Kassandra Smith Birthdate 1955 Date of evaluation: 01/02/2024 Provider: Nilsa Quintero DO CHIEF COMPLAINT Chief Complaint Patient presents with Shortness of Breath Rib Injury HISTORY OF PRESENT ILLNESS Kassandra Smith is a 68 y.o. female who presents to the emergency department with Her self for persistent right rib pain and shortness of breath status post fall this past Monday. She states thisis ground-level subsequently falling on the concrete. She denies any close head injury or loss of consciousness. She is not on anticoagulation. She endorses a history of asthma and is a current non-sm oker. Denies any flulike symptoms fevers or cough. Due to persistent shortness of breath and pain she is presenting today for further evaluation. Nursing Notes were reviewed. REVIEW OF SYSTEMS CONSTITUTIONAL: Denies fever, sweats, chills. NEURO: Denies difficulty walking, numbness, weakness, tingling, headache. HEENT: Denies sore throat, rhinorrhea, changes in vision. CARDIO: Denies chest pain, palpitations. PULM: Endorses shortness of breath. Denies cough. GI: Denies abdominal pain, nausea, vomiting, diarrhea, constipation, melena, hematochezia. : Denies painful urination, frequency, hematuria. MSK: Endorses rib pain. SKIN: Denies rash, lesions. ENDOCRINE: Denies unexpected weight-loss. HEME: Denies bleeding disorder. PAST MEDICAL HISTORY Past Medical History: Diagnosis Date Asthma ([facility]) May 2021 Vaginal discharge 10/11/2022 Vaginal itching 10/11/2022 SURGICAL HISTORY Past Surgical History: Procedure Laterality Date SECTION, CLASSIC 11/11/2015 Section SECTION, LOW TRANSVERSE July 1975 CHOLECYSTECTOMY GALLBLADDER SURGERY 11/11/2015 Gallbladder Surgery ALLERGIES Patient has no known allergies. FAMILY HISTORY Family History Problem Relation Name Age of Onset Diabetes Mother Darby Heart disease Mother Darby Hypertension Mother Darby Alcohol abuse Father Raleigh Diabetes Father Raleigh Alcohol abuse Brother Bryant Cancer Mother's Sister Liliana SOCIAL HISTORY Social History Socioeconomic History Marital status: Single Tobacco Use Smoking status: Former Current packs/day: 1.00 Average packs/day: 1 pack/day for 10.0 years (10.0 ttl pk-yrs) Types: Cigarettes Smokeless tobacco: Never Vaping Use Vaping status: Never Used Substance and Sexual Activity Alcohol use: Never Drug use: Never Sexual activity: Not Currently Partners: Female control/protection: Condom Male PHYSICAL EXAM VS: As documented in the triage note from today's date and EMR flowsheet were reviewed. Gen: Well developed. No acute distress. Seated in bed. Appears nontoxic. GCS 15 Skin: Warm. Dry. Intact. No rashes or lesions. Eyes: Pupils equally round and reactive to light. Clear sclera. EOMI. HENT: Atraumatic appearance. Mucosal membranes moist. No oral lesions, uvula midline, airway patent. TMs clear bilaterally nares clear bilaterally no evidence of basilar skull fracture no midline cervical tenderness or step-offs. CV: Regular rate and regular rhythm. S1, S2. No pedal edema. Warm extremities. Resp: Nonlabored breathing Clear to auscultation bilaterally. No increased work of breathing. GI: Soft and nontender. No rebound or guarding. Bowel sounds x4 present. MSK: Symmetric muscle bulk. No joint swelling in the extremities. Compartments are soft. Neurovascularly intact x4 extremities. Radial pulses +2 equal bilaterally. Pedal pulses +2 equal bilaterally. Extremities atraumatic. There is reproducible right lateral rib pain no crepitance. No TL spine tenderness. Neuro: Alert. CN II - XII intact. Speech fluent. Moving all extremities. No focal deficits. Gait normal. Psych: Appropriate. [place]. DIAGNOSTIC RESULTS RADIOLOGY: Non-plain film images such as CT, Ultrasound and MRI are read by the radiologist. Plain radiographic images are visualized and preliminarily interpreted by the emergency physician with the below findings: Chest x-ray no evidence of pneumothorax. Interpretation per the Radiologist below, if available at the time of this note: XR shoulder right 2+ views Final Result No acute osseous abnormality of the right shoulder. MACRO: None. Signed by: Kristofer Loyd 01/02/2024 11:56 PM Dictation workstation: [id number] CT head wo IV contrast Final Result No acute intracranial hemorrhage or mass effect. No acute fracture or traumatic subluxation of the cervical spine. MACRO: None. Signed by: Beba Rao 01/02/2024 9:49 PM Dictation workstation: [id number] CT cervical spine wo IV contrast Final Result No acute intracranial hemorrhage or mass effect. No acute fracture or traumatic subluxation of the cervical spine. MACRO: None. Signed by: Beba Rao 01/02/2024 9:49 PM Dictation workstation: [id number] CT angio chest for pulmonary embolism Final Result Partially limited evaluation of the pulmonary arteries otherwise no discrete pulmonary embolism identified to the segmental level. Subtle minimally displaced/deformed right anterior 5th and 6th rib fractures. No sizable pneumothorax is identified. Hazy parenchymal airspace opacities which could be related to air trapping, infection or inflammatory changes. Bibasilar are consolidative opacities with bronchiectasis and bronchial wall thickening may be related to aspiration pneumonitis or infection. No acute abnormality of the abdomen and pelvis. Chronic changes including hepatomegaly, significant stool burden and additional findings as detailed. MACRO: None. Signed by: Beba Rao 01/02/2024 10:01 PM Dictation workstation: [id number] CT abdomen pelvis w IV contrast Final Result Partially limited evaluation of the pulmonary arteries otherwise no discrete pulmonary embolism identified to the segmental level. Subtle minimally displaced/deformed right anterior 5th and 6th rib fractures. No sizable pneumothorax is identified. Hazy parenchymal airspace opacities which could be related to air trapping, infection or inflammatory changes. Bibasilar are consolidative opacities with bronchiectasis and bronchial wall thickening may be related to aspiration pneumonitis or infection. No acute abnormality of the abdomen and pelvis. Chronic changes including hepatomegaly, significant stool burden and additional findings as detailed. MACRO: None. Signed by: Beba Rao 01/02/2024 10:01 PM Dictation workstation: [id number] XR chest 1 view Final Result No acute cardiopulmonary process. Mild bibasilar atelectasis. MACRO: None. Signed by: Kristofer Loyd 01/02/2024 9:21 PM Dictation workstation: [id number] ED BEDSIDE ULTRASOUND: Performed by ED Physician - none LABS: Labs Reviewed CBC WITH AUTO DIFFERENTIAL - Abnormal Result Value WBC 12.0 (*) nRBC 0.0 RBC 5.03 Hemoglobin 16.8 (*) Hematocrit 50.8 (*) MCV 101 (*) MCH 33.4 MCHC 33.1 RDW 13.2 Platelets 220 Neutrophils % 79.0 Immature Granulocytes %, Automated 0.4 Lymphocytes % 10.4 Monocytes % 6.2 Eosinophils % 3.2 Basophils % 0.8 Neutrophils Absolute 9.50 (*) Immature Granulocytes Absolute, Automated 0.05 Lymphocytes Absolute 1.25 Monocytes Absolute 0.74 Eosinophils Absolute 0.38 Basophils Absolute 0.10 COMPREHENSIVE METABOLIC PANEL - Abnormal Glucose 91 Sodium 139 Potassium 4.3 Chloride 102 Bicarbonate 25 Anion Gap 16 Urea Nitrogen 18 Creatinine 1.07 (*) eGFR 57 (*) Calcium 10.7 (*) Albumin 4.9 Alkaline Phosphatase 170 (*) Total Protein 9.0 (*) AST 23 Bilirubin, Total 0.8 ALT 17 SERIAL TROPONIN, 1 HOUR - Abnormal Troponin I, High Sensitivity 15 (*) Narrative: Less than 99th percentile of normal range cutoff- Female and children under 18 years old <14 ng/L; Male <21 ng/L: Negative Repeat testing should be performed if clinically indicated. Female and children under 18 years old 14-50 ng/L; Male 21-50 ng/L: Consistent with possible cardiac damage and possible increased clinical risk. Serial measurements may help to assess extent of myocardial damage. >50 ng/L: Consistent with cardiac damage, increased clinical risk and myocardial infarction. Serial measurements may help assess extent of myocardial damage. NOTE: Children less than 1 year old may have higher baseline troponin levels and results should be interpreted in conjunction with the overall clinical context. NOTE: Troponin I testing is performed using a different testing methodology at [facility] than at other system hospitals. Direct result comparisons should only be made within the same method. MAGNESIUM - Normal Magnesium 2.29 SERIAL TROPONIN-INITIAL - Normal Troponin I, High Sensitivity 3 Narrative: Less than 99th percentile of normal range cutoff- Female and children under 18 years old <14 ng/L; Male <21 ng/L: Negative Repeat testing should be performed if clinically indicated. Female and children under 18 years old 14-50 ng/L; Male 21-50 ng/L: Consistent with possible cardiac damage and possible increased clinical risk. Serial measurements may help to assess extent of myocardial damage. >50 ng/L: Consistent with cardiac damage, increased clinical risk and myocardial infarction. Serial measurements may help assess extent of myocardial damage. NOTE: Children less than 1 year old may have higher baseline troponin levels and results should be interpreted in conjunction with the overall clinical context. NOTE: Troponin I testing is performed using a different testing methodology at [facility] than at other [facility]. Direct result comparisons should only be made within the same method. COAGULATION SCREEN - Normal Protime 12.8 INR 1.1 aPTT 29 Narrative: The APTT is no longer used for monitoring Unfractionated Heparin Therapy. For monitoring Heparin Therapy, use the Heparin Assay. TROPONIN SERIES- (INITIAL, 1 HR) Narrative: The following orders were created for panel order Troponin I Series, High Sensitivity (0, 1 HR). Procedure Abnormality Status --------- ------ Troponin I, High Sensiti...[[id number]] Normal Final result Troponin, High Sensitivi...[[id number]] Abnormal Final result Please view results for these tests on the individual orders. CBC COMPREHENSIVE METABOLIC PANEL All other labs were within normal range or not returned as of this dictation. EMERGENCY DEPARTMENT COURSE/MDM: Vitals: Vitals: 01/02/24 2154 01/02/24 2155 01/02/24 2200 01/02/24 2230 BP: 133/64 137/68 Patient Position: Lying Pulse: 84 92 Resp: 17 (!) 22 Temp: SpO2: 94% 94% 98% 95% Weight: Height: I reviewed the patient's triage vitals and they are hemodynamically stable although hypoxic to the 70s on room air. Patient was placed on nasal cannula 6 L improved to the low 90s. Due to the above findings the following was ordered limited trauma CT imaging the head cervical spine chest abdomen pelvis basic labs. Lab work no significant electrolyte derangements noted patient is recommended close outpatient follow-up with alkaline phosphatase no right upper quadrant tenderness. Mild PETRONA encouraged p.o. intake.Cardiac troponin no significant delta change no acute injury pattern on EKG doubt atypical ACS at this time. She is hemoconcentrated. Again recommended hydration. There is a leukocytosis I do believethis is likely reactive secondary to right x 2 rib fractures. Potential consolidation versus pulmonary contusion. Patient has no infectious etiology or story concerning for pneumonia I do believe this is pulmonary contusion. She is placed on high flow nasal cannula for comfort continues to saturateappropriately no indication for noninvasive positive pressure. All incidental findings on CT imaging were thoroughly discussed with the patient and recommended close outpatient follow-up. I did discuss findings with the trauma service who evaluated the patient in the emergency department. They haveagreed to accept the patient to their service for further treatment and evaluation. is the a ccepting physician they did take over care at time of admission order. Patient is appreciative of care. ED Course as of 01/03/2421e Jan 02, 20242058 Interpreted by the Emergency Department Attending: ECG revealed normal sinus rhythm at a rate of 91 beats per minute with DC interval 164 , QRS of 72 , QTc of 423. No acute injury pattern. Previous EKG on December 04 revealed nonspecific changes. [MG] ED Course User Index [MG] Nilsa Quintero DO Diagnoses as of 01/03/24 002 Closed fracture of multiple ribs of right side, initial encounter Contusion of right lung, initial encounter Patient was counseled regarding labs, imaging, likely diagnosis, and plan. All questions were answered. Information provided by the patient Consults trauma surgery Past medical history complicating workup asthma Previous medical records reviewed office visit 10/23/2023 Considered viral swabs although no indication no infectious etiology Shared medical decision making patient agreeable with hospital admission for further workup. ED Medications administered this visit: Medications oxygen (O2) therapy (60 L/min inhalation Start 01/02/242153) buPROPion XL (Wellbutrin XL) 24 hr tablet 150 mg (has no administration in time range) citalopram (CeleXA) tablet 40 mg (has no administration in time range) atorvastatin (Lipitor) tablet 80 mg (has no administration in time range) fluticasone furoate-vilanteroL (Breo Ellipta) 200-25 mcg/dose inhaler 1 puff (has no administrationin time range) enoxaparin (Lovenox) syringe 30 mg (has no administration in time range) polyethylene glycol (Glycolax, Miralax) packet 17 g (has no administration in time range) ondansetron (Zofran) tablet 4 mg (has no administration in time range) Or ondansetron (Zofran) injection 4 mg (has no administration in time range) acetaminophen (Tylenol) tablet 975 mg (has no administration in time range) ibuprofen tablet 600 mg (has no administration in time range) lidocaine 4 % patch 1 patch (has no administration in time range) methocarbamol (Robaxin) tablet 500 mg (has no administration in time range) gabapentin (Neurontin) capsule 100 mg (has no administration in time range) oxyCODONE (Roxicodone) immediate release tablet 5 mg (has no administration in time range) oxyCODONE (Roxicodone) immediate release tablet 10 mg (has no administration in time range) magnesium oxide (Mag-Ox) tablet 400 mg (has no administration in time range) oxybutynin (Ditropan) tablet 5 mg (has no administration in time range) albuterol 90 mcg/actuation inhaler 2 puff (has no administration in time range) albuterol 2.5 mg /3 mL (0.083 %) nebulizer solution 2.5 mg (has no administration in time range) iohexol (OMNIPaque) 350 mg iodine/mL solution 75 mL (75 mL intravenous Given 01/02/242116) Final Impression: 1. Closed fracture of multiple ribs of right side, initial encounter 2. Contusion of right lung, initial encounter Nilsa Quintero DO (Please note that portions of this note were completed with a voice recognition program. Efforts were made to edit the dictations but occasionally words are mis-transcribed.) Nilsa Quintero DO 01/03/24 0028 [facility] Work Phone: 1(378) 806-357011-04-2024 Telephone encounter Note* Telephone Encounter - Jen Polanco MA - 12/18/2023 6:54 AM EST Last office visit: 10/23/2023 Next office visit: 04/24/2024 [facility]11-04-2024 Miscellaneous Notes* Telephone Encounter - Jen Polanco MA - 12/18/2023 6:54 AM EST Last office visit: 10/23/2023 Next office visit: 04/24/2024 [facility] History of Present illness Narrative* Kayode Mckeon MD - 10/23/2023 8:00 AM EDT Images from the original note were not included. . Pulmonary Clinic Follow-up Note Patient Name: Kassandra Smith PRIMARY CARE PHYSICIAN: Marcela Buchanan MD Date of visit: October 23, 2023 COMMUNICATION WILL BE SENT VIA SHARED MEDICAL RECORDS OR US MAIL. Subjective: Kassandra Smith is a 67 year old year old female who presents for follow-up of asthma/copd, HP, last seen 3 months ago by Ivan. At that time she was tapered off of prednisone and switched her Advair to HFA to see if there is better delivery. Still is having mild cough though improved since starting the longer course of steroids. Off of steroids nearly 3 months, minimal cough in the morning and less issues throughout the day. Minimal SOB with heavier exertion. On advair 2 puffs twice a day, feels it is better than the discus. Uses albuterol 2-4 times a week , helps when she uses it. No longer working at the [employer]. MEDICATIONS: fluticasone-salmeterol HFA (ADVAIR HFA) 230-21 mcg/actuation inhaler Inhale 2 Puffs as instructed two times a day. albuterol HFA (PROVENTIL HFA, VENTOLIN HFA) 90 mcg/actuation inhaler Inhale 2 Puffs as instructed every 4 hours as needed for wheezing/shortness of breath. fluticasone-salmeterol (ADVAIR DISKUS) 500-50 mcg/dose dsdv Inhale 1 Puff as instructed two times aday. pantoprazole DR (PROTONIX) 40 mg tablet Take 1 tablet by mouth daily at 6 am. tacrolimus (PROTOPIC) 0.1 % ointment APPLY TO AFFECTED TWICE DAILY X 14 DAYS, STOP FOR 1 WEEK AND RESUME IF NEEDED atorvastatin (LIPITOR) 80 mg tablet Take 1 tablet by mouth daily at bedtime. albuterol HFA (PROVENTIL HFA, VENTOLIN HFA) 90 mcg/actuation inhaler Inhale 1 Puff as instructed every 4 hours as needed for wheezing/shortness of breath. 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 albuterol (PROVENTIL) 2.5 mg /3 mL (0.083 %) nebulizer solution Use 3 mL via nebulizer every 4 hours as needed for wheezing/shortness of breath. citalopram (CELEXA) 40 mg tablet Take 40 mg by mouth once daily. oxybutynin (DITROPAN) 5 mg tablet Take 5 mg by mouth twice daily. calcium carbonate (CALTRATE) 600 mg calcium (1,500 mg) tab Take 1,200 mg by mouth once daily. Vit A,C and V-Lpsler-Mloswwsr (OCUVITE) 300 mcg-200 mg-27 mg-2 mg tab Take 1 tablet by mouth once daily. aspirin, enteric coated (ASPIRIN, ENTERIC COATED) 81 mg EC tablet Take 81 mg by mouth once daily. Allergies: Patient has no known allergies. ROS: Pertinent positives and negatives are listed in the HPI, all other systems were reviewed and found to be negative. PHYSICAL EXAM: BP 122/70 (BP Site: Left Arm, BP Position: Sitting, BP Cuff Size: Regular Adult) Pulse 77 Ht 170.2 cm (5' 7) Wt 89.8 kg (198 lb) SpO2 92% BMI 31.01 kg/m General- nad, comfortable Eyes- eomi ENT- mmm, oropharynx CV- RRR Resp- CTA bilaterally Ext- no clubbing, cyanosis, or edemas Psych- appropriate mood and affect Labs / Imaging / Diagnostic Studies: Reviewed spirometry from 10/17/2023 which showed borderline obstruction with an FEV1 of 72%, FVC 2.7 L (84%) and DLCO 81%. Prior to starting steroids her spirometry 11/2022 showed an FVC of 2.36 L (73%) and FEV1 of 63%. DLCO was 74%. Assessment: Hypersensitivity pneumonitis-confirmed on bronchoscopy 02/2023. Was on systemic steroids for severalmonths and weaned off altogether in July 2023. Spirometry and DLCO are the best they have been right now and aside from mild cough she is feeling okay. She no longer works at the [employer]. Possible component of diastolic heart failure with slightly elevated left ventricular filling pressures -was on low dose lasix, has not noticed a big difference since stopping Smoking history, 9 pack years, quit at age 31 Hyperlipidemia 15 pet birds for 3 years Physical deconditioning Plan: Continue high-dose ICS/LABA. She has done better on Advair HFA with spacer rather than Diskus Use albuterol as needed for symptoms She will monitor her symptoms and if gradually worsens and we will again need to discuss systemic steroids, removing birds from home, etc. Follow-up in 6 months with spirometry and DLCO I spent a total of 30 minutes on the date of the service which included preparing to see the patient, [id number] patient care, completing clinical documentation, obtaining and/or reviewing separately obtained history, performing a medically appropriate examination, counseling and educating the pat ient/family/caregiver, ordering medications, tests, or procedures and independently interpreting results (not separately reported). Kayode Mckeon MD October 23, 2023 12:05 PM documented in this encounterUniversity [facility]09-09-2024 NoteHNO ID: [id number] Author: KAYODE MCKEON MD Service: ? Author Type: Physician Type: Progress Notes Filed: 10/23/2023 08:28 Note Text: . Pulmonary Clinic Follow-up Note Patient Name: Kassandra Smith PRIMARY CARE PHYSICIAN: Marcela Buchanan MD Date of visit: October 23, 2023 COMMUNICATION WILL BE SENT VIA SHARED MEDICAL RECORDS OR US MAIL. Subjective: Kassandra Smith is a 67 year old year old female who presents for follow-up of asthma/copd, HP, last seen 3 months ago by Ivan. At that time she was tapered off of prednisone and switched her Advair to HFA to see if there is better delivery. Still is having mild cough though improved since starting the longer course of steroids. Off of steroids nearly 3 months, minimal cough in the morning and less issues throughout the day. Minimal SOB with heavier exertion. On advair 2 puffs twice a day, feels it is better than the discus. Uses albuterol 2-4 times a week , helps when she uses it. No longer working at the [employer]. MEDICATIONS: fluticasone-salmeterol HFA (ADVAIR HFA) 230-21 mcg/actuation inhaler Inhale 2 Puffs as instructed two times a day. albuterol HFA (PROVENTIL HFA, VENTOLIN HFA) 90 mcg/actuation inhaler Inhale 2 Puffs as instructed every 4 hours as needed for wheezing/shortness of breath. fluticasone-salmeterol (ADVAIR DISKUS) 500-50 mcg/dose dsdv Inhale 1 Puff as instructed two times a day. pantoprazole DR (PROTONIX) 40 mg tablet Take 1 tablet by mouth daily at 6 am. tacrolimus (PROTOPIC) 0.1 % ointment APPLY TO AFFECTED TWICE DAILY X 14 DAYS, STOP FOR 1 WEEK AND RESUME IF NEEDED atorvastatin (LIPITOR) 80 mg tablet Take 1 tablet by mouth daily at bedtime. albuterol HFA (PROVENTIL HFA, VENTOLIN HFA) 90 mcg/actuation inhaler Inhale 1 Puff as instructed every 4 hours as needed for wheezing/shortness of breath. 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 albuterol (PROVENTIL) 2.5 mg /3 mL (0.083 %) nebulizer solution Use 3 mL via nebulizer every 4 hours as needed for wheezing/shortness of breath. citalopram (CELEXA) 40 mg tablet Take 40 mg by mouth once daily. oxybutynin (DITROPAN) 5 mg tablet Take 5 mg by mouth twice daily. calcium carbonate (CALTRATE) 600 mg calcium (1,500 mg) tab Take 1,200 mg by mouth once daily. Vit A,C and W-Jwuzpj-Ktvqqqlu (OCUVITE) 300 mcg-200 mg-27 mg-2 mg tab Take 1 tablet by mouth once daily. aspirin, enteric coated (ASPIRIN, ENTERIC COATED) 81 mg EC tablet Take 81 mg by mouth once daily. Allergies: Patient has no known allergies. ROS: Pertinent positives and negatives are listed in the HPI, all other systems were reviewed and found to be negative. PHYSICAL EXAM: BP 122/70 (BP Site: Left Arm, BP Position: Sitting, BP Cuff Size: Regular Adult) Pulse 77 Ht 170.2 cm (5' 7) Wt 89.8 kg (198 lb) SpO2 92% BMI 31.01 kg/m? General- nad, comfortable Eyes- eomi ENT- mmm, oropharynx CV- RRR Resp- CTA bilaterally Ext- no clubbing, cyanosis, or edemas Psych- appropriate mood and affect Labs / Imaging / Diagnostic Studies: Reviewed spirometry from 10/17/2023 which showed borderline obstruction with an FEV1 of 72%, FVC 2.7 L (84%) and DLCO 81%. Prior to starting steroids her spirometry 11/2022 showed an FVC of 2.36 L (73%) and FEV1 of 63%. DLCO was 74%. Assessment: Hypersensitivity pneumonitis-confirmed on bronchoscopy 02/2023. Was on systemic steroids for several months and weaned off altogether in July 2023. Spirometry and DLCO are the best they have been right now and aside from mild cough she is feeling okay. She no longer works at the [employer]. Possible component of diastolic heart failure with slightly elevated left ventricular filling pressures -was on low dose lasix, has not noticed a big difference since stopping Smoking history, 9 pack years, quit at age 31 Hyperlipidemia 15 pet birds for 3 years Physical deconditioning Plan: Continue high-dose ICS/LABA. She has done better on Advair HFA with spacer rather than Diskus Use albuterol as needed for symptoms She will monitor her symptoms and if gradually worsens and we will again need to discuss systemic steroids, removing birds from home, etc. Follow-up in 6 months with spirometry and DLCO I spent a total of 30 minutes on the date of the service which included preparing to see the patient, [id number] patient care, completing clinical documentation, obtaining and/or reviewing separately obtained history, performing a medically appropriate examination, counseling and educating the patient/family/caregiver, ordering medications, tests, or procedures and independently interpreting results (not separately reported). Kayode Mckeon MD October 23, 2023 12:05 [facility]09-03-2024 NoteHNO ID: [id number] Author: KAROLINE BROWN RRT Service: ? Author Type: Registered Resp Therapist Type: Progress Notes Filed: 10/17/2023 13:44 Note Text: PULM FUNCTION: Provider: Kayode Mckeon MD Spirometry: 1 [facility] History of Present illness Narrative * Karoline Brown RRT - 10/17/2023 1:43 PM EDT PULM FUNCTION: Provider: Kayode Mckeon MD Spirometry: 1 DLCO: 1 documented in this encounterUniversity [facility]als [facility]08-21-2024 History of Present illness Narrative* Bright Escobedo DO - 10/04/2023 1:00 PM EDT Subjective Patient ID: Kassandra Hankins is a 68 y.o. female who presents for Follow-up. [facility] Hankins is here to establish care. Fatigue is improved, she cut out naps and is sleeping better at night. She is taking wellbutrin, having some dry mouth with it, but overall feeling much improved while taking it. She would like to continue. Has been taking oxybutynin TID, with improvement in OAB symptoms. Review of Systems A 10 point review of systems is otherwise negative unless stated in the HPI. Objective Vitals: 10/04/23 1302 BP: 104/66 Physical Exam GEN: alert, conversant, NAD HEENT: PERRL, EOMI, MMM, Tms pearly hylton bilaterally NECK: supple, no LAD appreciated CHEST: CTAB CV: S1, S2, RRR, no murmurs appreciated ABD: soft, NT, ND EXT: no significant LE edema SKIN: warm, dry Assessment/Plan #ILD #asthma/COPD Not current taking an prednisone - following with Pulmonology - Using Advair HFA - Uses albuterol inhaler 4-5 times weekly. #Depression/Anxiety - Offered referral for counseling/therapy services, patient agreeable - Maintained on stable dose of celexa for ~30 years - Continue wellbutrin 150mg daily #fatigue, much improved - encouraged routine sleep/wake cycle - avoid multiple daytime naps and allow for 8 hours of sleep nightly #OAB - maintained on oxybutynin 5mg BID, not having good improvement in symptoms on current dose - Continue Oxybutynin 5mg TID # Dyslipidemia Continue with current management without changes: atorvastatin 80mg daily Discussed healthy diet and lifestyle. - repeat Lipid panel today #Obesity, Class I - Counseled continued efforts on lifestyle modification including weight loss, diet, and increased exercise for >5 minutes Health Maintenance: Vaccines: COVID (UTD), Flu (UTD), Shingles (advised), Pneumonia (x1, advised prevnar) Screening: Colonoscopy (2023, repeat in 1 year) Labs: Lipid panel, Hgba1c, TSH RTC in 3 month, or sooner PRN Bright Escobedo DO documented in this [facility] Work Phone: [phone]) 492-581408-16-2024 Hospital Discharge instructions* Discharge Instructions* Gonzalez Ayers MD - 09/29/2023 9:40 AM EDT Patient Instructions after a Colonoscopy The anesthetics, sedatives or narcotics which were given to you today will be acting in your body for the next 24 hours, so you might feel a little sleepy or groggy. This feeling should slowly wear off. Carefully read and follow the instructions. You received sedation today: - Do not drive or operate any machinery or power tools of any kind. - No alcoholic beverages today, not even beer or wine. - Do not make any important decisions or sign any legal documents. - No over the counter medications that contain alcohol or that may cause drowsiness. - Do not make any important decisions or sign any legal documents. - Make sure you have someone with you for first 24 hours. While it is common to experience mild to moderate abdominal distention, gas, or belching after yourprocedure, if any of these symptoms occur following discharge from the GI Lab or within one week ofhaving your procedure, call the [facility] to be advised whether a visit to your nearest Urgent Care or Emergency Department is indicated. Take this paper with you if you go. - If you develop an allergic reaction to the medications that were given during your procedure suchas difficulty breathing, rash, hives, severe nausea, vomiting or lightheadedness. - If you experience chest pain, shortness of breath, severe abdominal pain, fevers and chills. -If you develop signs and symptoms of bleeding such as blood in your spit, if your stools turn black, tarry, or bloody - If you have not urinated within 8 hours following your procedure. - If your IV site becomes painful, red, inflamed, or looks infected. If you received a biopsy/polypectomy/sphincterotomy the following instructions apply below: __ Do not use Aspirin containing products, non-steroidal medications or anti- coagulants for one week following your procedure. (Examples of these types of medications are: Advil, Arthrotec, Aleve, Coumadin, Ecotrin, Heparin, Ibuprofen, Indocin, Motrin, Naprosyn, Nuprin, Plavix, Vioxx, and Voltarin,or their generic forms. This list is not all-inclusive. Check with your physician or pharmacist before resuming medications.) __ Eat a soft diet today. Avoid foods that are poorly digested for the next 24 hours. These foods would include: nuts, beans, lettuce, red meats, and fried foods. Start with liquids and advance your diet as tolerated, gradually work up to eating solids. __ Do not have a Barium Study or Enema for one week. Your physician recommends the additional following instructions: -You have a contact number available for emergencies. The signs and symptoms of potential delayed complications were discussed with you. You may return to normal activities tomorrow. -Resume your previous diet. -Continue your present medications. -We are waiting for your pathology results. -Your physician has recommended a repeat colonoscopy (date to be determined after pending pathologyresults are reviewed) for surveillance based on pathology results. -The findings and recommendations have been discussed with you. -The findings and recommendations were discussed with your family. - Please see Medication Reconciliation Form for new medication/medications prescribed. If you experience any problems or have any questions following discharge from the GI Lab, please call: Nurse Signature Date Patient/Responsible Republican Signature Date documented in this [facility] Work Phone: [phone]) 428-846208-16-2024 Attending History and physical note* Gonzalez Ayers MD - 09/29/2023 8:30 AM EDT H&P reviewed. The patient was examined and there are no changes to the H&P. Source Note - Bright Escobedo DO - 09/06/2023 9:30 AM EDT Subjective Patient ID: Kassandra Hankins is a 68 y.o. female who presents for Establish Care (Fatigue, several months). [facility] Hankins is here to establish care. She reports fatigue for the last couple of months. She falls asleep around 1:00- 2:00am, wakes up ataround 6:00am to walk and feeds her dogs. Will take a 1-2 hour nap in the morning and 1-2 hour nap in the afternoon. Does sleep through the night for 4-5 hours. Feels tired when she wakes up in the morning. Her mood has been lower recently, she has been maintained on celexa for ~30 years. She is finding herself more tearful frequently. Not agitated or irritable. She does endorse passive SI, no active SI. No HI. PMHx: ILD, Asthma/COPD, MDD SurgHx: , Gallbladder FamHx: Mom had Heart attack and then CHF around 70 years of age, and T2D. SocialHx: Past smoker for around 10 pack year, quit smoking >30 years ago. No EtOh use. Not currenlty sexually active. She has 4 dogs. Lives with sister and nephew. 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 Review of Systems A 10 point review of systems is otherwise negative unless stated in the HPI. Objective Vitals: 09/06/23 0927 BP: 114/70 Physical Exam GEN: alert, conversant, NAD HEENT: PERRL, EOMI, MMM, Tms pearly hylton bilaterally NECK: supple, no LAD appreciated CHEST: CTAB CV: S1, S2, RRR, no murmurs appreciated ABD: soft, NT, ND EXT: no significant LE edema SKIN: warm, dry Assessment/Plan #ILD #asthma/COPD Not current taking an prednisone - following with Pulmonology - Using Advair HFA - Uses albuterol inhaler 4-5 times weekly. #Depression/Anxiety - Offered referral for counseling/therapy services, patient agreeable - Maintained on stable dose of celexa for ~30 years - Add wellbutrin 150mg daily, SE profile discussed #fatigue - encouraged routine sleep/wake cycle - avoid multiple daytime naps and allow for 8 hours of sleep nightly #OAB - maintained on oxybutynin 5mg BID, not having good improvement in symptoms on current dose - Trial mybetriq 25mg daily # Dyslipidemia Continue with current management without changes: atorvastatin 80mg daily Discussed healthy diet and lifestyle. #Obesity, Class I - Counseled continued efforts on lifestyle modification including weight loss, diet, and increased exercise for >5 minutes Health Maintenance: Vaccines: COVID (UTD), Flu (UTD), Shingles (advised), Pneumonia (x1, advised prevnar) Screening: Colonoscopy (ordered today) Labs: Consider labs at next visit RTC in 1 month, or sooner PRN Bright Escobedo, [facility] Work Phone: [phone]) 417-692108-16-2024 History and physical note* Gonzalez Ayers MD - 09/29/2023 8:30 AM EDT H&P reviewed. The patient was examined and there are no changes to the H&P. Source Note - Bright sEcobedo DO - 09/06/2023 9:30 AM EDT Subjective Patient ID: Kassandra Hankins is a 68 y.o. female who presents for Establish Care (Fatigue, several months). [facility]hi is here to establish care. She reports fatigue for the last couple of months. She falls asleep around 1:00- 2:00am, wakes up ataround 6:00am to walk and feeds her dogs. Will take a 1-2 hour nap in the morning and 1-2 hour nap in the afternoon. Does sleep through the night for 4-5 hours. Feels tired when she wakes up in the morning. Her mood has been lower recently, she has been maintained on celexa for ~30 years. She is finding herself more tearful frequently. Not agitated or irritable. She does endorse passive SI, no active SI. No HI. PMHx: ILD, Asthma/COPD, MDD SurgHx: , Gallbladder FamHx: Mom had Heart attack and then CHF around 70 years of age, and T2D. SocialHx: Past smoker for around 10 pack year, quit smoking >30 years ago. No EtOh use. Not currenlty sexually active. She has 4 dogs. Lives with sister and nephew. 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 Review of Systems A 10 point review of systems is otherwise negative unless stated in the HPI. Objective Vitals: 09/06/23 0927 BP: 114/70 Physical Exam GEN: alert, conversant, NAD HEENT: PERRL, EOMI, MMM, Tms pearly hylton bilaterally NECK: supple, no LAD appreciated CHEST: CTAB CV: S1, S2, RRR, no murmurs appreciated ABD: soft, NT, ND EXT: no significant LE edema SKIN: warm, dry Assessment/Plan #ILD #asthma/COPD Not current taking an prednisone - following with Pulmonology - Using Advair HFA - Uses albuterol inhaler 4-5 times weekly. #Depression/Anxiety - Offered referral for counseling/therapy services, patient agreeable - Maintained on stable dose of celexa for ~30 years - Add wellbutrin 150mg daily, SE profile discussed #fatigue - encouraged routine sleep/wake cycle - avoid multiple daytime naps and allow for 8 hours of sleep nightly #OAB - maintained on oxybutynin 5mg BID, not having good improvement in symptoms on current dose - Trial mybetriq 25mg daily # Dyslipidemia Continue with current management without changes: atorvastatin 80mg daily Discussed healthy diet and lifestyle. #Obesity, Class I - Counseled continued efforts on lifestyle modification including weight loss, diet, and increased exercise for >5 minutes Health Maintenance: Vaccines: COVID (UTD), Flu (UTD), Shingles (advised), Pneumonia (x1, advised prevnar) Screening: Colonoscopy (ordered today) Labs: Consider labs at next visit RTC in 1 month, or sooner PRN Bright Escobedo DO documented [facility] Work Phone: 1([phone]) 647-860506-06-2024 Instructions* Patient Instructions* Ivan Talavera PA-C - 07/20/2023 9:25 AM EDT Continue 2.5 mg until I chat with Dr. Mckeon. We jo witch advair diskus inhaler to advair HFA inhaler. You can use new inhaler with the spacer. Follow up in 3 months as scheduled with Dr. Mckeon. We will add spirometry and DLCO again before that visit. documented in this encounterUniversity [facility]als [facility]06-06-2024 History of Present illness Narrative* Ivan Talavera PA-C - 07/20/2023 9:00 AM EDT Images from the original note were not included. . Pulmonary Clinic Follow-up Note Patient Name: Kassandra Smith PRIMARY CARE PHYSICIAN: Marcela Buchanan MD Date of visit: July 20, 2023 COMMUNICATION WILL BE SENT VIA SHARED MEDICAL RECORDS OR US MAIL. Subjective: Kassandra Smith is a 68 year old year old female who presents for follow-up of ILD, last seen in the office 06/16/23 by me. At that time, felt like her cough had improved since restarting her advair. Was on 15mg of prednisone at that time. Plan was to drop to 10mg for 2 weeks and if doing well would then drop to 5mg for 2weeks, then 2.5. continue high dose ics- laba and follow up in 4 weeks with repeat meghan and DLCO Since seeing us last, has tapered down to 2.5 mg of prednisone. Has noticed that cough has slightlyincreased. Been on 2.5 x 3 weeks. States wants off steroids completely. Cough is more tolerable then side effects from steroid. Main side effect for her is weight gain from the prednisone. No other adverse side effects. Wondering if advair is the best inhaler for her. Doesn't always feel like she is inhaling the medication with diskus inhaler. Has also noticed slightly more SOB and wheezing with the taper. Still thinks maybe due to weight gain from the steroid. Still living at home with 15 birds. MEDICATIONS: albuterol HFA (PROVENTIL HFA, VENTOLIN HFA) 90 mcg/actuation inhaler Inhale 2 Puffs as instructed every 4 hours as needed for wheezing/shortness of breath. fluticasone-salmeterol (ADVAIR DISKUS) 500-50 mcg/dose dsdv Inhale 1 Puff as instructed two times aday. pantoprazole DR (PROTONIX) 40 mg tablet Take 1 tablet by mouth daily at 6 am. tacrolimus (PROTOPIC) 0.1 % ointment APPLY TO AFFECTED TWICE DAILY X 14 DAYS, STOP FOR 1 WEEK AND RESUME IF NEEDED atorvastatin (LIPITOR) 80 mg tablet Take 1 tablet by mouth daily at bedtime. albuterol HFA (PROVENTIL HFA, VENTOLIN HFA) 90 mcg/actuation inhaler Inhale 1 Puff as instructed every 4 hours as needed for wheezing/shortness of breath. 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 albuterol (PROVENTIL) 2.5 mg /3 mL (0.083 %) nebulizer solution Use 3 mL via nebulizer every 4 hours as needed for wheezing/shortness of breath. citalopram (CELEXA) 40 mg tablet Take 40 mg by mouth once daily. oxybutynin (DITROPAN) 5 mg tablet Take 5 mg by mouth twice daily. calcium carbonate (CALTRATE) 600 mg calcium (1,500 mg) tab Take 1,200 mg by mouth once daily. Vit A,C and P-Skazay-Azleuico (OCUVITE) 300 mcg-200 mg-27 mg-2 mg tab Take 1 tablet by mouth once daily. aspirin, enteric coated (ASPIRIN, ENTERIC COATED) 81 mg EC tablet Take 81 mg by mouth once daily. Allergies: Patient has no known allergies. ROS: Pertinent positives and negatives are listed in the HPI, all other systems were reviewed and found to be negative. PHYSICAL EXAM: BP 132/72 (BP Site: Right Arm, BP Position: Sitting, BP Cuff Size: Regular Adult) Pulse 73 Ht 170.2 cm (5' 7) Wt 89.8 kg (198 lb) SpO2 95% BMI 31.01 kg/m General- nad, comfortable Eyes- eomi ENT- mmm, oropharynx clear, CV- RRR Resp- lungs clear, no conversational dyspnea. No cough heard on exam Neuro- normal gait, no focal deficits Psych- appropriate mood and affect Labs / Imaging / Diagnostic Studies: Reviewed spirometry from today which was normal. DLCO 87%. 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 Currently on 2.5mg and has had slightly worsening cough and SOB as she has tapered but state still significantly better from when first diagnosed. Continues to live at home with pet birds but has been limiting exposure. Is aware of risk of continued bird exposure. COPD/asthma- on high dose advair diskus. Is asking if she can switch inhalers. Doesn't think she isfully inhaling the medication. 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 Explained to patient that her symptoms of cough and SOB may not improve if still exposed to her birds, especially as tapering off prednisone. She is aware of risks She wants to discontinue prednisone. States her current cough is tolerable to her. She is aware I will discuss with Dr. Mckeon She will follow up in 3 months with meghan and DLCO with Dr. Mckeon I spent a total of 27 minutes on the date of the service which included preparing to see the patient, [id number] patient care, completing clinical documentation, obtaining and/or reviewing separately obtained history, performing a medically appropriate examination, counseling and educating the pat ient/family/caregiver, ordering medications, tests, or procedures, communicating with other HCPs (not separately reported), independently interpreting results (not separately reported), and communicating results to the patient/family/caregiver. Ivan Talavera PA-C July 20, 2023 10:11 AM documented in this encounterUniversity Hospitals [facility]06-06-2024 History of Present illness Narrative* Karoline Brown RRT - 07/20/2023 8:36 AM EDT PULM FUNCTION: Provider: Ivan Talavera PA-C Spirometry: 1 DLCO: 1 documented in this encounterUniversity Hospitals Port[facility]05-03-2024 Instructions* Patient Instructions* Ivan Talavera PA-C - 06/16/2023 1:19 PM EDT Drop to 10mg for 2 weeks. If cough is not getting worse then we will drop to 5mg for 2 weeks, and then if cough still okay, will drop to 2.5mg 2. You would update us if cough is getting throughout the taper 3. You are going to continue your inhaler as you are. Try using albuterol at time taht you get SOB.See if that helps Follow up with me in [address] Mckeon in 3-4 months documented in this encounterUniversity Hospitals Port[facility]05-03-2024 History of Present illness Narrative* Ivan Talavera PA-C - 06/16/2023 1:12 PM EDT Images from the original note were not included. . Pulmonary Clinic Follow-up Note Patient Name: Kassandra Smith PRIMARY CARE PHYSICIAN: Marcela Buchanan MD Date of visit: June 16, 2023 COMMUNICATION WILL BE SENT VIA SHARED MEDICAL RECORDS OR US MAIL. Subjective: Kassandra Smith is a 68 year old year old female who presents for follow-up of ILD, last seen in the office by me 05/18/23 At that time, had noticed slight increase in cough as she was tapering the prednisone. Recommended restarting ICS-LABA, continuing 15mg of prednisone, Since seeing us last, is noticing improvement in the cough especially since restarting the inhaler.Is on 500mcg of advair diskus. Using 1 puff twice daily. Currently still on 15mg of prednsione. Feels like she'd be able to decrease. Still occasionally feels like she gets SOB, more so with increased activity. Has not used albuterol rescue inhaler. Is not having productive cough. MEDICATIONS: albuterol HFA (PROVENTIL HFA, VENTOLIN HFA) 90 mcg/actuation inhaler Inhale 2 Puffs as instructed every 4 hours as needed for wheezing/shortness of breath. fluticasone-salmeterol (ADVAIR DISKUS) 500-50 mcg/dose dsdv Inhale 1 Puff as instructed two times aday. predniSONE (DELTASONE) 10 mg tablet Take 3 tablets by mouth once daily. pantoprazole DR (PROTONIX) 40 mg tablet Take 1 tablet by mouth daily at 6 am. sulfamethoxazole-trimethoprim (BACTRIM DS) 800-160 mg per tablet Take 1 tablet by mouth every Monday, Monday, and Monday. tacrolimus (PROTOPIC) 0.1 % ointment APPLY TO AFFECTED TWICE DAILY X 14 DAYS, STOP FOR 1 WEEK AND RESUME IF NEEDED ADVAIR HFA 230-21 mcg/actuation inhaler INHALE 2 PUFFS INSTRUCTED TWICE DAILY. atorvastatin (LIPITOR) 80 mg tablet Take 1 tablet by mouth daily at bedtime. albuterol HFA (PROVENTIL HFA, VENTOLIN HFA) 90 mcg/actuation inhaler Inhale 1 Puff as instructed every 4 hours as needed for wheezing/shortness of breath. 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 albuterol (PROVENTIL) 2.5 mg /3 mL (0.083 %) nebulizer solution Use 3 mL via nebulizer every 4 hours as needed for wheezing/shortness of breath. citalopram (CELEXA) 40 mg tablet Take 40 mg by mouth once daily. oxybutynin (DITROPAN) 5 mg tablet Take 5 mg by mouth twice daily. calcium carbonate (CALTRATE) 600 mg calcium (1,500 mg) tab Take 1,200 mg by mouth once daily. Vit A,C and O-Xdiwmn-Gmpwmdtv (OCUVITE) 300 mcg-200 mg-27 mg-2 mg tab Take 1 tablet by mouth once daily. aspirin, enteric coated (ASPIRIN, ENTERIC COATED) 81 mg EC tablet Take 81 mg by mouth once daily. Allergies: Patient has no known allergies. ROS: Pertinent positives and negatives are listed in the HPI, all other systems were reviewed and found to be negative. PHYSICAL EXAM: BP 110/68 (BP Site: Left Arm, BP Position: Sitting, BP Cuff Size: Regular Adult) Pulse 82 Ht 170.2 cm (5' 7) Wt 81.6 kg (180 lb) SpO2 93% BMI 28.19 kg/m General- nad, comfortable Eyes- eomi ENT- mmm, oropharynx clear, CV- RRR Resp- crackles heard at bases. Intermittent cough. 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 Currently on 15mg. Continues to live at home with pet birdsbut has been limiting exposure. Is aware of risk of continued bird exposure. 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 Physical deconditioning -she is not sedentary but does not do formal exercise Plan: Okay to step down prednisone to 10mg daily for 2 weeks, if no worsening symptoms would then drop to5mg for 2 weeks, then 2.5 mg Continue high dose ics-laba Update us if any worsening symptoms as she is tapering prednisone Follow up with me in 4 weeks with repeat meghan and DLCO Follow up with dr mckeon in 3-4 months I spent a total of 21 minutes on the date of the service which included preparing to see the patient, [id number] patient care, completing clinical documentation, obtaining and/or reviewing separately obtained history, performing a medically appropriate examination, and counseling and educating the patient/family/caregiver. Ivan Talavera PA-C June 16, 2023 1:40 PM documented in this encounterUniversity Hospitals Port[facility]04-04-2024 Miscellaneous Notes* Telephone Encounter - Ivan Talavera PA-C - 05/18/2023 12:51 PM EDT Note below was given to patient in [employer] [employer] message. So please disregard. Schedulers, please assist in scheduling 2 week follow up with me * Telephone Encounter - Ivan Talavera PA-C - 05/18/2023 12:26 PM EDT Can you please call patient and let her know Dr. Mckeon agrees with staying on 15mg of prednisonefor now but wants her to restart the inhaler. If any issues getting the inhaler, please let us know. We should do a follow up in 2 weeks. If she's agreeable to follow up. Please send to scheduling! documented in this encounterUniversity Hospitals [facility]04-04-2024 Instructions* Patient Instructions* Ivan Talavera PA-C - 05/18/2023 9:25 AM EDT Combined ICS/LABA: Breo Dulera Advair (HFA or diskus) Wixela AirDuo Breyna If symbicort is too expensive, please send us a message on [employer] and ask insurance which of the above would be covered/cheaper If it is covered, affordable. Start using 2 puffs twice daily. I will call you once I discuss with Dr. Mara Alford [facility]- a pharmacy that does not require insurance. So can always look and see if any of the above inhalers are affordable on that site documented in this encounterUniversity Hospitals [facility]04-04-2024 History of Present illness Narrative* Ivan Talavera PA-C - 05/18/2023 9:00 AM EDT Images from the original note were not included. . Pulmonary Clinic Follow-up Note Patient Name: Kassandra Smith PRIMARY CARE PHYSICIAN: Marcela Buchanan MD Date of visit: May 18, 2023 COMMUNICATION WILL BE SENT VIA SHARED MEDICAL RECORDS OR US MAIL. Subjective: Kassandra Smith is a 68 year old year old female who presents for follow-up of ILD and copd/asthma, last seen in the office 04/21/23 by me At that time, was doing well since being on 30mg of prednisone. No wheezing, sob, or cough. Has notneeded inhaler. Plan was to drop prednisone down to 20mg for 2 weeks and if doing well on that, will drop to 15mg. Plan was to follow up with me in 3-4 weeks Since seeing us last, she did well on 20 mg of prednisone. Now has been on 15mg of prednisone for almost 2 weeks. In the last week and a half has noticed a slight increase in cough and SOB. Still states nothing like she had before she had hypersensitivity pneumonitis diagnsoed. Did feel better on 20mg prednisone but also noticing some weight gain and wasn't sure if she should attribute her SOB tothat. Cough can be random throughout the day. Dry cough, no sputum. Sob is noticeable more so with exertion. No wheezing. Has not been using advair or albuterol with these symptoms. States advair inhaler costs $400 for one inhaler. Does not have either inhaler at home currently. Still lives at home with pet birds. MEDICATIONS: predniSONE (DELTASONE) 10 mg tablet Take 3 tablets by mouth once daily. tacrolimus (PROTOPIC) 0.1 % ointment APPLY TO AFFECTED TWICE DAILY X 14 DAYS, STOP FOR 1 WEEK AND RESUME IF NEEDED atorvastatin (LIPITOR) 80 mg tablet Take 1 tablet by mouth daily at bedtime. albuterol HFA (PROVENTIL HFA, VENTOLIN HFA) 90 mcg/actuation inhaler Inhale 1 Puff as instructed every 4 hours as needed for wheezing/shortness of breath. 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 citalopram (CELEXA) 40 mg tablet Take 40 mg by mouth once daily. oxybutynin (DITROPAN) 5 mg tablet Take 5 mg by mouth twice daily. calcium carbonate (CALTRATE) 600 mg calcium (1,500 mg) tab Take 1,200 mg by mouth once daily. Vit A,C and K-Fltzed-Zqageeec (OCUVITE) 300 mcg-200 mg-27 mg-2 mg tab Take 1 tablet by mouth once daily. aspirin, enteric coated (ASPIRIN, ENTERIC COATED) 81 mg EC tablet Take 81 mg by mouth once daily. pantoprazole DR (PROTONIX) 40 mg tablet Take 1 tablet by mouth daily at 6 am. sulfamethoxazole-trimethoprim (BACTRIM DS) 800-160 mg per tablet Take 1 tablet by mouth every Monday, Monday, and Monday. ADVAIR HFA 230-21 mcg/actuation inhaler INHALE 2 PUFFS INSTRUCTED TWICE DAILY. (Patient not taking: Reported on 05/18/2023) albuterol (PROVENTIL) 2.5 mg /3 mL (0.083 %) nebulizer solution Use 3 mL via nebulizer every 4 hours as needed for wheezing/shortness of breath. (Patient not taking: Reported on 05/18/2023) Allergies: Patient has no known allergies. ROS: Pertinent positives and negatives are listed in the HPI, all other systems were reviewed and found to be negative. PHYSICAL EXAM: BP 120/72 (BP Site: Left Arm, BP Position: Sitting, BP Cuff Size: Regular Adult) Pulse 71 Resp 16 SpO2 93% General- nad, comfortable Eyes- eomi ENT- mmm, oropharynx clear, CV- RRR Resp- clear to auscultation bilaterally, no wheezes or crackles, breathing nonlabored. Intermittentcough heard Neuro- normal gait, no focal deficits Psych- appropriate mood and affect Labs / Imaging / Diagnostic Studies: Reviewed spirometry from 04/21/23 which showed no obstruction. 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 Currently on 15 mg prednisone. Having increased cough and SOB x 1.5 weeks. Continues to live at home with pet birds but has been limiting exposure. Is aware of risk of continued bird exposure. COPD/asthma- has not needed inhalers since starting prednisone. 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 Since advair has been cost prohibitive, sent in dscovered. Will update us if this is cost prohibitive as well. Start using albuterol PRN. Will continue 15mg of prednisone for now until I discuss with Dr. Mckeon and will determine follow up I spent a total of 29 minutes on the date of the service which included preparing to see the patient, [id number] patient care, completing clinical documentation, obtaining and/or reviewing separately obtained history, performing a medically appropriate examination, counseling and educating the pat ient/family/caregiver, ordering medications, tests, or procedures, and communicating with other HCPs (not separately reported). Ivan Talavera PA-C May 18, 2023 9:38 AM documented in this [facility]03-22-2024 Miscellaneous Notes* Telephone Encounter - Kimberly Martins RN - 05/05/2023 11:35 AM EDT Called and spoke to patient She stated that pulmonary have not worsened and is still doing well. She will drop to 15 mg starting tomorrow No refill needed for prednisone at this time * Telephone Encounter - Ivan Talavera PA-C - 05/05/2023 10:57 AM EDT Please call pt and se how her pulmonary symptoms are doing at 20mg of prednisone. If symptoms stilldoing well, no worsening symptoms at 20mg, we will drop to 15mg until her follow up with me on 05/17 Please let me know if she needs new RX for prednsione documented in this [facility]03-12-2024 Miscellaneous Notes* Telephone Encounter - Diana Salas - 04/25/2023 2:57 PM EDT 04/24 - left vm to call back * Telephone Encounter - Ivan Talavera PA-C - 04/21/2023 1:47 PM EST Called and spoke with patient. Aware I discussed her prednisone taper with dr mckeon. Plan at this time is 20mg for 2 weeks. If doing well at that time will drop to 15mg. Plan to see me after completing 1 week of 15 mg, so approx 3-4 weeks from now. documented in this encounterUniversity Hospitals [facility]03-08-2024 Instructions* Patient Instructions* Ivan Talavera PA-C - 04/21/2023 11:00 AM EST Drop to 20mg of prednisone x 2 weeks. I will call you after that to see how your symptoms are, if doing well well drop to 10mg at that time. Continue bactrim 3 days a week for now. Ill chat with dr mckeon for follow up. Then ill have our office calll you to schedule that. If anything changes, call us or send a [employer] message documented in this encounterUniversity Hospitals [facility]03-08-2024 History of Present illness Narrative* Karoline Brown RRT - 04/21/2023 10:37 AM EST PULM FUNCTION SMARTBLOCK: Provider: Kayode Mckeon MD Spirometry w/BD: 1 DLCO: 1 documented in this encounterUniversity Hospitals [facility]03-08-2024 History of Present illness Narrative* Ivan Talavera PA-C - 04/21/2023 10:21 AM EST Images from the original note were not included. . Pulmonary Clinic Follow-up Note Patient Name: Kassandra Smith PRIMARY CARE PHYSICIAN: Marcela Buchanan MD Date of visit: April 21, 2023 COMMUNICATION WILL BE SENT VIA SHARED MEDICAL RECORDS OR US MAIL. Subjective: Kassandra Smith is a 68 year old year old female who presents for follow-up of ILD and COPD/asthma, last seen in the office 03/24/23 by me. At that time, was being seen for hospital follow up. Was doing well with high dose steroids. 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 Mckeon and myself discussed importance of limiting exposure to birds and discussed risks of suspender cutter prednisone. Plan was to continue 40mg prednisone for 2 more weeks, then drop to 30mg. Continue bactrim for PJP prophylaxis. Since seeing us last, feeling well. Nos hortness of breath. Sstates sometime sin the morning but toherwsie no. No wheezing. No cough. Has been on 30mg of prednisone for 2-3 weeks. Has not needed to use advair or albuterol Still lives at home with her pet birds. States has limited her exposure to them as much as she can. MEDICATIONS: predniSONE (DELTASONE) 10 mg tablet Take 3 tablets by mouth once daily. pantoprazole DR (PROTONIX) 40 mg tablet Take 1 tablet by mouth daily at 6 am. sulfamethoxazole-trimethoprim (BACTRIM DS) 800-160 mg per tablet Take 1 tablet by mouth every Monday, Monday, and Monday. tacrolimus (PROTOPIC) 0.1 % ointment APPLY TO AFFECTED TWICE DAILY X 14 DAYS, STOP FOR 1 WEEK AND RESUME IF NEEDED ADVAIR HFA 230-21 mcg/actuation inhaler INHALE 2 PUFFS INSTRUCTED TWICE DAILY. atorvastatin (LIPITOR) 80 mg tablet Take 1 tablet by mouth daily at bedtime. albuterol HFA (PROVENTIL HFA, VENTOLIN HFA) 90 mcg/actuation inhaler Inhale 1 Puff as instructed every 4 hours as needed for wheezing/shortness of breath. 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 albuterol (PROVENTIL) 2.5 mg /3 mL (0.083 %) nebulizer solution Use 3 mL via nebulizer every 4 hours as needed for wheezing/shortness of breath. citalopram (CELEXA) 40 mg tablet Take 40 mg by mouth once daily. oxybutynin (DITROPAN) 5 mg tablet Take 5 mg by mouth twice daily. calcium carbonate (CALTRATE) 600 mg calcium (1,500 mg) tab Take 1,200 mg by mouth once daily. Vit A,C and Z-Nbelsc-Ogbzkrbi (OCUVITE) 300 mcg-200 mg-27 mg-2 mg tab Take 1 tablet by mouth once daily. aspirin, enteric coated (ASPIRIN, ENTERIC COATED) 81 mg EC tablet Take 81 mg by mouth once daily. Allergies: Patient has no known allergies. ROS: Pertinent positives and negatives are listed in the HPI, all other systems were reviewed and found to be negative. PHYSICAL EXAM: BP 114/72 (BP Site: Left Arm, BP Position: Sitting, BP Cuff Size: Regular Adult) Pulse 74 Ht 170.2 cm (5' 7) Wt 81.6 kg (180 lb) SpO2 96% BMI 28.19 kg/m General- nad, comfortable Eyes- eomi ENT- mmm, oropharynx clear, CV- RRR Resp- slight crackles heard in lung bases. Breathing nonlabored. No cough. No conversational dyspnea Ext- no clubbing, cyanosis, or edema Neuro- normal gait, no focal deficits Psych- appropriate mood and affect Labs / Imaging / Diagnostic Studies: Reviewed spirometry from today which shows no obstruction with FEV1 71% with BD response. DLCO 82% . 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 Currently on 30mg. Continues to live at home with pet birdsbut has been limiting exposure. Is aware of risk of continued bird exposure. COPD/asthma- has not needed inhalers since starting prednisone. 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 I will call her at that time to see how symptoms are and if continues to do well will decrease to 10mg. Will continue Bactrim MWF until drop down to 10mg daily for PJP prophylaxis Will discuss follow up with dr mckeon and our office will contact her for follow up I spent a total of 25 minutes on the date of the service which included preparing to see the patient, [id number] patient care, completing clinical documentation, obtaining and/or reviewing separately obtained history, performing a medically appropriate examination, counseling and educating the pat ient/family/caregiver, ordering medications, tests, or procedures, communicating with other HCPs (not separately reported), independently interpreting results (not separately reported), and communicating results to the patient/family/caregiver. Ivan Talavera PA-C April 21, 2023 11:16 AM documented in this encounterUniversity Hospitals Portage [facility]02-28-2024 Emergency department Note * Emanuel Fonseca, 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 - 04/12/2023 9:29 AM EST HPI Chief Complaint Patient presents with Fall Ankle Pain Trip and fall last night pain and swelling to right ankle, no head injury no thinners Patient is a 67-year-old female with past medical history of cholecystitis, Pulmonary hypertension,eczema, hyperlipidemiawho presents the ED today due to left ankle pain. Patient states that yesterday she missed a step coming out of her house and fell. She believes that she twisted her left ankle.Patient denies striking her head, loss of consciousness, headache, vision changes, dizziness, focalnumbness or weakness. Patient denies any neck pain or pain with neck movement. Patient denies any distal numbness or weakness in her foot. History provided by: Patient real estate assistant used: No Briseyda Coma Scale Score: 15 Patient History Past Medical History: Diagnosis Date Vaginal discharge 10/11/2022 Vaginal itching 10/11/2022 Past Surgical History: Procedure Laterality Date SECTION, CLASSIC 11/11/2015 Section GALLBLADDER SURGERY 11/11/2015 Gallbladder Surgery No family history on file. Social History Tobacco Use Smoking status: Never Smokeless tobacco: Never Substance Use Topics Alcohol use: Not on file Drug use: Not on file Physical Exam ED Triage Vitals [04/12/23 0949] Temperature Heart Rate Respirations BP 36.2 C (97.2 F) 73 18 110/59 Pulse Ox Temp Source Heart Rate Source Patient Position (!) 91 % Temporal Monitor Sitting BP Location FiO2 (%) Right arm -- Physical Exam Vitals and nursing note reviewed. Constitutional: General: She is not in acute distress. Appearance: Normal appearance. She is well-developed. She is not toxic-appearing or diaphoretic. Interventions: Cervical collar in place. HENT: Head: Normocephalic and atraumatic. No raccoon eyes, Garcia's sign, abrasion, contusion, right periorbital erythema, left periorbital erythema or laceration. Jaw: No trismus, tenderness, swelling or malocclusion. Right Ear: Tympanic membrane normal. No hemotympanum. Left Ear: Tympanic membrane normal. No hemotympanum. Nose: No nasal tenderness. Right Nostril: No epistaxis or septal hematoma. Left Nostril: No epistaxis or septal hematoma. Mouth/Throat: Mouth: Mucous membranes are moist. No injury. Eyes: General: Lids are normal. Vision grossly intact. Extraocular Movements: Extraocular movements intact. Right eye: Normal extraocular motion. Left eye: Normal extraocular motion. Conjunctiva/sclera: Conjunctivae normal. Right eye: No hemorrhage. Left eye: No hemorrhage. Pupils: Pupils are equal, round, and reactive to light. Cardiovascular: Rate and Rhythm: Normal rate and regular rhythm. Pulses: Radial pulses are 2+ on the right side and 2+ on the left side. Femoral pulses are 2+ on the right side and 2+ on the left side. Dorsalis pedis pulses are 2+ on the right side and 2+ on the left side. Posterior tibial pulses are 2+ on the right side and 2+ on the left side. Heart sounds: No murmur heard. Pulmonary: Effort: Pulmonary effort is normal. No respiratory distress. Breath sounds: Normal breath sounds. Abdominal: General: Abdomen is flat. Palpations: Abdomen is soft. Tenderness: There is no abdominal tenderness. There is no guarding or rebound. Musculoskeletal: General: No swelling. Right shoulder: No swelling, deformity or tenderness. Left shoulder: No swelling, deformity or tenderness. Right upper arm: No swelling, deformity or tenderness. Left upper arm: No swelling, deformity or tenderness. Right elbow: No swelling or deformity. No tenderness. Left elbow: No swelling or deformity. No tenderness. Right forearm: No swelling, deformity or tenderness. Left forearm: No swelling, deformity or tenderness. Right wrist: No swelling, deformity or tenderness. Left wrist: No swelling, deformity or tenderness. Right hand: No swelling, deformity or tenderness. Left hand: No swelling, deformity or tenderness. Cervical back: Neck supple. No deformity, tenderness or bony tenderness. No spinous process tenderness. Thoracic back: No deformity or bony tenderness. Lumbar back: No deformity or bony tenderness. Right hip: No deformity or tenderness. Left hip: No deformity or tenderness. Right upper leg: No deformity or tenderness. Left upper leg: No deformity or tenderness. Right knee: No deformity. No tenderness. Left knee: No deformity. No tenderness. Right lower leg: No deformity or tenderness. Left lower leg: No deformity or tenderness. Right ankle: No deformity. No tenderness. Left ankle: No deformity. Tenderness present over the lateral malleolus and ATF ligament. Decreasedrange of motion. Left Achilles Tendon: Normal. Right foot: No deformity or tenderness. Left foot: Normal capillary refill. Tenderness present. No deformity. Normal pulse. Skin: General: Skin is warm and dry. Capillary Refill: Capillary refill takes less than 2 seconds. Findings: No abrasion or laceration. Neurological: Mental Status: She is alert. GCS: GCS eye subscore is 4. GCS verbal subscore is 5. GCS motor subscore is 6. Sensory: Sensation is intact. Psychiatric: Mood and Affect: Mood normal. ED Course & MDM ED Course as of 04/12/23 1146 MonApr 12, 2023 1138 XR ankle left 3+ views No definite acute fracture. Probable diffuse soft tissue swelling. [WS] 1138 XR foot left 3+ views No definite acute fracture. Probable diffuse soft tissue swelling. [WS] ED Course User Index [WS] Emanuel Fonseca, [facility] Diagnoses as of 04/12/23 1146 Fall, initial encounter Sprain of anterior talofibular ligament of left ankle, initial encounter Medical Decision Making Differential diagnosis: Closed head injury, neck injury, ankle fracture, foot fracture, ankle sprain, foot sprain. Patient's vital signs do show slightly low pulse ox but no other abnormalities. This will be repeated. Patient is in no respiratory distress and this is likely her baseline given her pulmonary hypertension. Patient's x-ray imaging was negative for acute fracture or dislocation, does show soft tissue swelling. This is likely the result of a sprain. Given proximity to the injury though occult fracture cannot be ruled out. I did advise her to follow-up with orthopedics if pain persists or to return to the ED for repeat imaging. Patient was given IM Toradol with moderate relief of pain. She will be placed in an air splint for a presumed sprain and advised to follow-up with orthopedics. I did recommenda CT of the head and C-spine given her fall and age as she is at risk for closed head injury and C-spine injury. Patient declined, risks of this are discussed with the patient she verbalized understan ding of these. I discussed the differential, results and discharge plan with the patient. I emphasized the importance of follow-up with the physician I referred them to in the timeframe recommended. I explained reasons for the them to return to the Emergency Department. Additional verbal discharge instructions were also given and discussed with them to supplement those generated by the EMR. We also discussed medications that were prescribed (if any) including common side effects and interactions. All questions were addressed. They understand return precautions and discharge instructions. They expressed understanding. Amount and/or Complexity of Data Reviewed Radiology: ordered and independent interpretation performed. ECG/medicine tests: Decision-making details documented in ED Course. Risk OTC drugs. Prescription drug management. Procedure Procedures ALMA Grimes 04/12/23 1150 documented in this [facility] Work Phone: [phone]) 410-742602-28-2024 Physician Emergency department Note* ALMA Grimes - 04/12/2023 9:29 AM EST HPI Chief Complaint Patient presents with Fall Ankle Pain Trip and fall last night pain and swelling to right ankle, no head injury no thinners Patient is a 67-year-old female with past medical history of cholecystitis, Pulmonary hypertension,eczema, hyperlipidemiawho presents the ED today due to left ankle pain. Patient states that yesterday she missed a step coming out of her house and fell. She believes that she twisted her left ankle.Patient denies striking her head, loss of consciousness, headache, vision changes, dizziness, focalnumbness or weakness. Patient denies any neck pain or pain with neck movement. Patient denies any distal numbness or weakness in her foot. History provided by: Patient real estate assistant used: No Briseyda Coma Scale Score: 15 Patient History Past Medical History: Diagnosis Date Vaginal discharge 10/11/2022 Vaginal itching 10/11/2022 Past Surgical History: Procedure Laterality Date SECTION, CLASSIC 11/11/2015 Section GALLBLADDER SURGERY 11/11/2015 Gallbladder Surgery No family history on file. Social History Tobacco Use Smoking status: Never Smokeless tobacco: Never Substance Use Topics Alcohol use: Not on file Drug use: Not on file Physical Exam ED Triage Vitals [04/12/23 0949] Temperature Heart Rate Respirations BP 36.2 C (97.2 F) 73 18 110/59 Pulse Ox Temp Source Heart Rate Source Patient Position (!) 91 % Temporal Monitor Sitting BP Location FiO2 (%) Right arm -- Physical Exam Vitals and nursing note reviewed. Constitutional: General: She is not in acute distress. Appearance: Normal appearance. She is well-developed. She is not toxic-appearing or diaphoretic. Interventions: Cervical collar in place. HENT: Head: Normocephalic and atraumatic. No raccoon eyes, Garcia's sign, abrasion, contusion, right periorbital erythema, left periorbital erythema or laceration. Jaw: No trismus, tenderness, swelling or malocclusion. Right Ear: Tympanic membrane normal. No hemotympanum. Left Ear: Tympanic membrane normal. No hemotympanum. Nose: No nasal tenderness. Right Nostril: No epistaxis or septal hematoma. Left Nostril: No epistaxis or septal hematoma. Mouth/Throat: Mouth: Mucous membranes are moist. No injury. Eyes: General: Lids are normal. Vision grossly intact. Extraocular Movements: Extraocular movements intact. Right eye: Normal extraocular motion. Left eye: Normal extraocular motion. Conjunctiva/sclera: Conjunctivae normal. Right eye: No hemorrhage. Left eye: No hemorrhage. Pupils: Pupils are equal, round, and reactive to light. Cardiovascular: Rate and Rhythm: Normal rate and regular rhythm. Pulses: Radial pulses are 2+ on the right side and 2+ on the left side. Femoral pulses are 2+ on the right side and 2+ on the left side. Dorsalis pedis pulses are 2+ on the right side and 2+ on the left side. Posterior tibial pulses are 2+ on the right side and 2+ on the left side. Heart sounds: No murmur heard. Pulmonary: Effort: Pulmonary effort is normal. No respiratory distress. Breath sounds: Normal breath sounds. Abdominal: General: Abdomen is flat. Palpations: Abdomen is soft. Tenderness: There is no abdominal tenderness. There is no guarding or rebound. Musculoskeletal: General: No swelling. Right shoulder: No swelling, deformity or tenderness. Left shoulder: No swelling, deformity or tenderness. Right upper arm: No swelling, deformity or tenderness. Left upper arm: No swelling, deformity or tenderness. Right elbow: No swelling or deformity. No tenderness. Left elbow: No swelling or deformity. No tenderness. Right forearm: No swelling, deformity or tenderness. Left forearm: No swelling, deformity or tenderness. Right wrist: No swelling, deformity or tenderness. Left wrist: No swelling, deformity or tenderness. Right hand: No swelling, deformity or tenderness. Left hand: No swelling, deformity or tenderness. Cervical back: Neck supple. No deformity, tenderness or bony tenderness. No spinous process tenderness. Thoracic back: No deformity or bony tenderness. Lumbar back: No deformity or bony tenderness. Right hip: No deformity or tenderness. Left hip: No deformity or tenderness. Right upper leg: No deformity or tenderness. Left upper leg: No deformity or tenderness. Right knee: No deformity. No tenderness. Left knee: No deformity. No tenderness. Right lower leg: No deformity or tenderness. Left lower leg: No deformity or tenderness. Right ankle: No deformity. No tenderness. Left ankle: No deformity. Tenderness present over the lateral malleolus and ATF ligament. Decreasedrange of motion. Left Achilles Tendon: Normal. Right foot: No deformity or tenderness. Left foot: Normal capillary refill. Tenderness present. No deformity. Normal pulse. Skin: General: Skin is warm and dry. Capillary Refill: Capillary refill takes less than 2 seconds. Findings: No abrasion or laceration. Neurological: Mental Status: She is alert. GCS: GCS eye subscore is 4. GCS verbal subscore is 5. GCS motor subscore is 6. Sensory: Sensation is intact. Psychiatric: Mood and Affect: Mood normal. ED Course & MDM ED Course as of 04/12/23 1146 MonApr 12, 2023 1138 XR ankle left 3+ views No definite acute fracture. Probable diffuse soft tissue swelling. [WS] 1138 XR foot left 3+ views No definite acute fracture. Probable diffuse soft tissue swelling. [WS] ED Course User Index [WS] Emanuel Fonseca APRN-DETAIL SERGEANT Diagnoses as of 04/12/23 1146 Fall, initial encounter Sprain of anterior talofibular ligament of left ankle, initial encounter Medical Decision Making Differential diagnosis: Closed head injury, neck injury, ankle fracture, foot fracture, ankle sprain, foot sprain. Patient's vital signs do show slightly low pulse ox but no other abnormalities. This will be repeated. Patient is in no respiratory distress and this is likely her baseline given her pulmonary hypertension. Patient's x-ray imaging was negative for acute fracture or dislocation, does show soft tissue swelling. This is likely the result of a sprain. Given proximity to the injury though occult fracture cannot be ruled out. I did advise her to follow-up with orthopedics if pain persists or to return to the ED for repeat imaging. Patient was given IM Toradol with moderate relief of pain. She will be placed in an air splint for a presumed sprain and advised to follow-up with orthopedics. I did recommenda CT of the head and C-spine given her fall and age as she is at risk for closed head injury and C-spine injury. Patient declined, risks of this are discussed with the patient she verbalized understan ding of these. I discussed the differential, results and discharge plan with the patient. I emphasized the importance of follow-up with the physician I referred them to in the timeframe recommended. I explained reasons for the them to return to the Emergency Department. Additional verbal discharge instructions were also given and discussed with them to supplement those generated by the EMR. We also discussed medications that were prescribed (if any) including common side effects and interactions. All questions were addressed. They understand return precautions and discharge instructions. They expressed understanding. Amount and/or Complexity of Data Reviewed Radiology: ordered and independent interpretation performed. ECG/medicine tests: Decision-making details documented in ED Course. Risk OTC drugs. Prescription drug management. Procedure Procedures ALMA Grimes 04/12/23 1150 [facility] Work Phone: [phone] 978-826202-09-2024 Instructions* Patient Instructions* Ivan Talavera PA-C - 03/24/2023 9:33 AM EST Will continue 40mg for 2 more weeks then drop to 30mg. Follow up with me in 4 weeks with spirometry and DLCO. We will reassess symptoms at that time and determine if we can further drop prednisone dosing documented in this encounterUniversity [facility]als [facility]02-09-2024 History of Present illness Narrative* Ivan Talavera PA-C - 03/24/2023 9:00 AM EST Images from the original note were not included. . Pulmonary Clinic Follow-up Note Patient Name: Kassandra Smith PRIMARY CARE PHYSICIAN: Marcela Buchanan MD Date of visit: March 24, 2023 COMMUNICATION WILL BE SENT VIA SHARED MEDICAL RECORDS OR US MAIL. Subjective: Kassandra Smith is a 67 year old year old female who presents for hospital follow up. [facility]- 03/17/23 for hypoxia in setting of ILD and hypersensitivity pneumonia. Per hospital d/c summary: HOSPITAL COURSE: This is a 67 year old female with past medical history of ILD, excessive dynamic airway collapse, asthma, lung nodules, hyperlipidemia who was noted to be hypoxic prior to elective bronchoscopy today. Patient has been having worsening shortness of breath and cough for which she has been following with pulmonology for further evaluation of ILD. 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 Former smoker in her 20s, quitwhen she was 31, maybe 1 pack every day to 1.[address] chest without contrast from 01/31/2023 was concerning for hypersensitivity pneumonitis and excessive dynamic airway collapse. Therefore elective bronchoscopy was planned for today to evaluate for hypersensitivity pneumonitis with cryobiopsies. Patient was noted to be hypoxic prior to the procedure. She is not on oxygen at home. Her [employer] rep thinks that hypoxia is likely secondary to progression of her ILD. Bronchoscopy today showed changes consistent with interstitial lung disease, BAL was performed, transbronchial lung biopsies from right upper and lower lobe were obtained. Of note, she received Decadron 10 mg IV as part of the procedure. She is being admitted to the hospital to evaluate for etiology of hypoxia and arrange home oxygen on discharge if needed. She arrived to [facility] on 6 L nasal cannula. Otherwise hemodynamically stable and afebrile. Since seeing us last, is feelig better since hospitalization. Was started on 40mg of prednisone andis on bactrim for PJP prophylaxis. Rarely noticing SOB now on steroids. She did quit working at [employer]. Continues to live at home with 15 birds. States very hard to limit exposure to her birdsas some are her sisters as well, whom she lives with. No longer using inhalers. Has not needed them. MEDICATIONS: pantoprazole DR (PROTONIX) 40 mg tablet Take 1 tablet by mouth daily at 6 am. sulfamethoxazole-trimethoprim (BACTRIM DS) 800-160 mg per tablet Take 1 tablet by mouth every Monday, Monday, and Monday. predniSONE (DELTASONE) 10 mg tablet Take 4 tablets by mouth once daily. Patient should start on March 18, 2023. tacrolimus (PROTOPIC) 0.1 % ointment APPLY TO AFFECTED TWICE DAILY X 14 DAYS, STOP FOR 1 WEEK AND RESUME IF NEEDED ADVAIR HFA 230-21 mcg/actuation inhaler INHALE 2 PUFFS INSTRUCTED TWICE DAILY. atorvastatin (LIPITOR) 80 mg tablet Take 1 tablet by mouth daily at bedtime. albuterol HFA (PROVENTIL HFA, VENTOLIN HFA) 90 mcg/actuation inhaler Inhale 1 Puff as instructed every 4 hours as needed for wheezing/shortness of breath. 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 albuterol (PROVENTIL) 2.5 mg /3 mL (0.083 %) nebulizer solution Use 3 mL via nebulizer every 4 hours as needed for wheezing/shortness of breath. citalopram (CELEXA) 40 mg tablet Take 40 mg by mouth once daily. oxybutynin (DITROPAN) 5 mg tablet Take 5 mg by mouth twice daily. calcium carbonate (CALTRATE) 600 mg calcium (1,500 mg) tab Take 1,200 mg by mouth once daily. Vit A,C and F-Uahufr-Mghigalo (OCUVITE) 300 mcg-200 mg-27 mg-2 mg tab Take 1 tablet by mouth once daily. aspirin, enteric coated (ASPIRIN, ENTERIC COATED) 81 mg EC tablet Take 81 mg by mouth once daily. Allergies: Patient has no known allergies. ROS: Pertinent positives and negatives are listed in the HPI, all other systems were reviewed and found to be negative. PHYSICAL EXAM: BP 114/68 (BP Site: Left Arm, BP Position: Sitting, BP Cuff Size: Regular Adult) Pulse 67 Ht 170.2 cm (5' 7) Wt 78.5 kg (173 lb) SpO2 93% BMI 27.10 kg/m General- nad, comfortable Eyes- eomi ENT- mmm, oropharynx clear, CV- RRR Resp- clear to auscultation bilaterally, no wheezes or crackles, breathing nonlabored Ext- no clubbing, cyanosis, or edema Neuro- normal gait, no focal deficits Psych- appropriate mood and affect Labs / Imaging / Diagnostic Studies: Component Latest Ref Rng & Units 03/15/2023 03/16/2023 Alternaria tenuis/Alternata IgG <12.0 mcg/mL 6.2 ASPERGILLUS FUMIGATUS IGG <46.0 mcg/mL 30.7 Aureobasidium pullulans IgG <18.0 mcg/mL 6.1 Laceyella sacchari IgG <25.0 mcg/mL 9.2 MICROPOLYSPORA FAENI IGG <5.0 mcg/mL 6.0 (H) Penicillium chrysogenum IgG <22.0 mcg/mL 23.2 (H) Phoma betae IgG <8.0 mcg/mL 6.6 Trichoderma viride IgG <10.0 mcg/mL 8.7 Aspergillus fumigatus 1 None Detected None Detected None Detected Aspergillus fumigatus 6 None Detected None Detected None Detected Aureobasidium pullulans, IgG None Detected None Detected None Detected [place] Serum AB None Detected Detected (A) Detected (A) Saccharopolyspora rectivirgula None Detected None Detected None Detected A. Right lung, lower lobe, cryo biopsy: - Patchy chronic interstitial pneumonitis with rare loosely formed granulomas and giant cells. B. Right lung, upper lobe, transbronchial biopsy: - Bronchial wall with lymphocytic inflammation. 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 Then drop down to 30mg. Will update us with any changes in symptoms Continue bactrim for PJP prophylaxis Will follow up with me in 4 weeks with spirometry and DLCO and reassess symptoms and further prednisone taper Dr. Mckeon also spoke with patient in office. She is aware of risk of keeping pet birds. Has better symptom advantage if removing bird exposure. She is aware of risks. Risk of [facility] prednisone discussed I spent a total of 25 minutes on the date of the service which included preparing to see the patient, [id number] patient care, completing clinical documentation, obtaining and/or reviewing separately obtained history, performing a medically appropriate examination, counseling and educating the pat ient/family/caregiver, communicating with other HCPs (not separately reported), independently interpreting results (not separately reported), and communicating results to the patient/family/caregiver. Ivan Talavera PA-C March 24, 2023 9:46 AM documented in this encounterUniversity [facility]als [facility]02-02-2024 Miscellaneous Notes* Telephone Encounter - Carmelo Arizmendi Ma - 03/17/2023 3:26 PM EST Pt notified * Telephone Encounter - Kayode Mckeon MD - 03/17/2023 2:59 PM EST Please let her know that I have been in communication with her doctors over the last few days so I am up to speed on everything. Really glad to hear she did not need oxygen today and we will see her next week * Telephone Encounter - Emma Hill - 03/17/2023 1:22 PM EST 03/17 - Pt called with an update. Wanted to let Dr. Mckeon know that she was currently in the hospital and is being released today. Pt requested a hospital follow up appt and is scheduled with Ivan next Friday 03/24 @ 9am. documented in this encounterUniversity Hospitals [facility]01-15-2024 History of Present illness Narrative* Debra Mejia APRN-LILIANA - 02/27/2023 10:40 AM EST Subjective Patient ID: Nhi Smith is a 67 y.o. female. Chief Complaint: Pain of the Right Knee HPI This is a pleasant 67-year-old female presenting to the office for evaluation of right knee pain, which has been ongoing since February 22, 2023. Patient explains that she was standing, slightly bending over to brush her dog's teeth, when she turned and twisted her right knee and felt a pop. She immediately felt pain to the posterior aspect of her knee. She did not experience any swelling. She presented to the emergency department, where multiple view x-rays of her right knee were obtained without evidence of acute fracture or dislocation. There was noted to be mild patellofemoral arthritis. She was given an immobilizer and told to follow-up with orthopedics. Presents to the office today with continued complaints of posterior right knee pain. Pain is worse with full extension and when ambulating. She is walking with somewhat of a limp. She denies any right knee swelling. She does have intermittent sensations that right knee is going to give out or buckle. She is having difficulty with prolonged standing walking or stair climbing. She has continued to take ibuprofen with some relief. Denies numbness and paresthesia of right lower extremity. She is retired. She has 4 dogs and is fostering another 1. The patient's past medical, surgical, family, and social history as well as allergies and medications were reviewed and updated in the chart. Objective Ortho Exam Pleasant and no acute distress. Walks with a mildly antalgic gait. Right knee appearing without soft tissue swelling erythema or ecchymosis. There is no warmth upon touch. Right knee range of motion is 5-110 . The knee is stable to varus and valgus stress Peggy and posterior drawer. There is a noeffusion. She is minimally tender upon palpation of medial joint line. Slight discomfort with manipulation of the patella. She is tender upon palpation of hamstring muscle and posterior knee. There is no palpable Amezquita's cyst noted. Left knee range of motion is 0-120 . There is no effusion. The knee is stable to varus and valgus stress Peggy and posterior drawer. Both lower extremities are wellperfused the skin is intact and muscle tone is adequate. Image Results: XR knee right 1-2 views Narrative: Interpreted By: Jon Méndez, STUDY: XR KNEE RIGHT 1-2 VIEWS; 02/23/2023 10:31 am INDICATION: Signs/Symptoms:knee pain. COMPARISON: None. ACCESSION NUMBER(S): [id number] ORDERING CLINICIAN: ABY SHETTY FINDINGS: Bony structures: Intact Joint spaces: Maintained Soft tissues: Unremarkable without significant edema or radiodense foreign body Other: None significant Impression: No acute findings. MACRO: None Signed by: Jon Méndez 02/23/2023 10:38 AM Dictation workstation: [id number] Multiple view x-rays of the right knee obtained on February 23, 2023 personally reviewed, without evidence of acute fracture or dislocation. There is mild degenerative changes of the right knee noted in patellofemoral compartment with joint space narrowing. Assessment/Plan Encounter Diagnoses: Strain of right hamstring, initial encounter Posterior right knee pain Plan: Discussion with patient about diagnosis with review of x-rays. Explained to patient that she is most likely sustained a strain of her right hamstring muscle, as that is where most of her pain is originating. She will benefit from a formal physical therapy program to help with right hamstring stretching and range of motion of the right knee, referral provided. I have also fitted and prescribed patient an economy hinged brace to help with right knee stability. She can wear with ambulation as needed over the next 3 to 4 weeks. She will continue with ibuprofen or Tylenol, as well as heat and ice application. If she does not see significant relief of symptoms in 4 to 6 weeks, she should return to the office for follow-up. Orders Placed This Encounter Knee Brace, Hinged Referral to Physical Therapy documented in this encounterF[facility] Work Phone: 1(775) 432-358812-19-2023 History of Present illness Narrative* Annalee Lei, RT(R) - 01/31/2023 1:00 PM EST Radiology Service Progress Note PATIENT NAME: Kassandra Smith DATE OF SERVICE: January 31, 2023 TIME: 1:34 PM PATIENT IDENTITY VERIFICATION COMPLETED USING TWO (2) IDENTIFIERS: Name and Date of confirmedby patient verbally. FALL SCREENING: Has the patient had 2 falls in the last year or 1 fall with injury or currently using an Ambulatory Assistive Device (Walker, Cane, Wheelchair, Crutches, etc.)? No PATIENT GENDER DATA: Female. status: : No status: NO. PATIENT RELEVANT IMPLANT DATA REVIEWED: Yes RADIOLOGY DEPARTMENT: CT; Exam(s) Completed: Chest PERIPHERAL IV DATA: Not applicable SIGNED BY: RT Ausitn(R) January 31, 2023 1:34 PM documented in this encounterUniversity Hospitals [facility] Center12-19-2023 Miscellaneous Notes* Addendum Note - Christina Laughlin RN - 01/31/2023 1:00 PM ESTEncounter addended by: Christina Laughlin RN on: 03/17/2023 7:03 PM Actions taken: LDA properties accepted documented in this encounterUniversity Hospitals [facility] Center12-19-2023 Note* Addendum Note - Christina Laughlin RN - 01/31/2023 1:00 PM ESTEncounter addended by: Christina Laughlin RN on: 03/17/2023 7:03 PM Actions taken: LDA properties accepted [facility]12-12-2023 Miscellaneous Notes* Telephone Encounter - Emma Hill - 01/24/2023 11:04 AM EST 01/24 - Pt scheduled. * Telephone Encounter - Kimberly Martins RN - 01/19/2023 1:42 PM EST Called and updated patient. Patient agreeable to CT scan this month Schedules can you please reach out to patient to assist with scheduling CT of chest for this month. * Telephone Encounter - Kayode Mckeon MD - 01/19/2023 1:39 PM EST It is completely up to her - she is aware the risks of delayed diagnosis and treatments, if her symptoms are tolerable and not worsening that might be ok but it is totally up to her * Telephone Encounter - Kimberly Martins RN - 01/19/2023 1:34 PM EST Patient update. Patient stated that since has CT/breathing tests/and follow up scheduled for 05/18/2023 would like tostart the process at that time if you are agreeable * Telephone Encounter - Kayode Mckeon MD - 01/19/2023 1:22 PM EST Please let her know that she would need updated CT Chest so they can review and then decide on bestarea of lung to get bronchoscopy testing from. Please schedule her CT for this month and once I getthe result I then review with interventional pulmonary and they will call her to schedule. If she is agreeable please send to scheduling to arrange CT * Telephone Encounter - Emma Hill - 01/19/2023 11:02 AM EST 01/19 - Patient called. States she is ready to move forward with bronchoscopy and would like to knowwhat steps she should take next to get scheduled. Please advise. PH. documented in this encounterUniversity Hospitals Port[facility] Center10-13-2023 History of Present illness Narrative* Diana Salas - 11/25/2022 1:15 PM EDT 11/25 - added to schedule * Kayode Mckeon MD - 11/25/2022 9:20 AM EDT . Pulmonary Clinic Follow-up Note Patient Name: Kassandra Smith PRIMARY CARE PHYSICIAN: Marcela Buchanan MD Date of visit: November 25, 2022 COMMUNICATION WILL BE SENT VIA SHARED MEDICAL RECORDS OR US MAIL. Subjective: Kassandra Smith is a 67 year old year old female who presents for follow-up of asthma/copd, suspected HP, last seen 6 months ago. At that time she was kept on high-dose ICS/LABA and had declined diagnostic bronchoscopy. She still gets out of breath. Her lose lasix was stopped, maybe a little worse after that. MEDICATIONS: ADVAIR HFA 230-21 mcg/actuation inhaler INHALE 2 PUFFS INSTRUCTED TWICE DAILY. albuterol (PROVENTIL) 2.5 mg /3 mL (0.083 %) nebulizer solution Use 3 mL via nebulizer every 4 hours as needed for wheezing/shortness of breath. albuterol HFA (PROVENTIL HFA, VENTOLIN HFA) 90 mcg/actuation inhaler Inhale 1 Puff as instructed every 4 hours as needed for wheezing/shortness of breath. Inhale 1 to 2 puffs every 4 to 6 hours as needed aspirin, enteric coated (ASPIRIN, ENTERIC COATED) 81 mg EC tablet Take 81 mg by mouth once daily. atorvastatin (LIPITOR) 80 mg tablet Take 1 tablet by mouth daily at bedtime. calcium carbonate (CALTRATE) 600 mg calcium (1,500 mg) tab Take 1,200 mg by mouth once daily. citalopram (CELEXA) 40 mg tablet Take 40 mg by mouth once daily. furosemide (LASIX) 20 mg tablet TAKE 1 TABLET BY MOUTH EVERY DAY Miscellaneous Medical Supply Dispense one nebulizer compressor with lifetime supplies. oxybutynin (DITROPAN) 5 mg tablet Take 5 mg by mouth twice daily. potassium chloride (K-TAB) 10 mEq tablet TAKE 1 TABLET BY MOUTH EVERY DAY Vit A,C and J-Zillpa-Fexmsmow (OCUVITE) 300 mcg-200 mg-27 mg-2 mg tab Take 1 tablet by mouth once daily. Allergies: Patient has no known allergies. ROS: Pertinent positives and negatives are listed in the HPI, all other systems were reviewed and found to be negative. PHYSICAL EXAM: BP 132/68 (BP Site: Left Arm, BP Position: Sitting, BP Cuff Size: Regular Adult) Pulse 75 Ht 170.2 cm (5' 7) Wt 78.2 kg (172 lb 6.4 oz) SpO2 (!) 87% BMI 27.00 kg/m General- nad, comfortable Eyes- eomi ENT- mmm, oropharynx CV- RRR Resp-minimal bibasilar crackles, exam unchanged Ext- no clubbing, cyanosis, or edemas Psych- appropriate mood and affect Labs / Imaging / Diagnostic Studies: Reviewed spirometry from today which showed no obstruction and reduced FEV1 63% from 74%. FVC down to 73%. 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 Spirometry worse today but her symptoms are stable clinically on high- dose ICS/LABA Possible component of diastolic heart failure with slightly elevated left ventricular filling pressures -was on low dose lasix, has not noticed a big difference since stopping Smoking history, 9 pack years, quit at age 31 Hyperlipidemia 10 pet birds for 3 years Physical deconditioning -she is not sedentary but does not do formal exercise Plan: Continue high-dose ICS/LABA Use albuterol as needed for symptoms She is agreeable to trial nebulized ICS twice daily for 1 month, if helpful she will let us know and then we will send in refills Offered pulmonary rehab but she would qualify but she would like to hold on this for now She declines bronchoscopy for evaluation of HP as well as excessive dynamic airway collapse We will check spirometry with bronchodilator and DLCO in [address] chest Kayode Mckeon MD November 25, 2022 7:47 AM documented in this encounterUniversity Hospitals Portage [facility] Center10-13-2023 Instructions* Patient Instructions* Kayode Mckeon MD - 11/25/2022 9:34 AM EDT Try nebulized inhaled steroid twice a day for a month - if helping let me know and will send in refills to use 1-2 times a day. If no change then stop. documented in this encounterUniversity Hospitals [facility] Center10-13-2023 History of Present illness Narrative* Karoline Brown, DAY HABILITATION SUPERVISOR - 11/25/2022 8:58 AM EDT PULM FUNCTION SMARTBLOCK: Provider: Kayode Mckeon MD Spirometry: 1 DLCO: 1 documented in this encounterUniversity Hospitals Portage [facility] Center08-29-2023 History of Present illness Narrative* Naty Hall DO - 10/11/2022 8:30 AM EDT Subjective Patient ID: Nhi Smith is a 67 y.o. female who presents for Medicare Annual Wellness Visit Subsequent (Medicare wellness visit /Left knee pain ). Has asthma. Diagnosed a little over one year ago. Some coughing, shortness of breath, worse than last time she saw her [employer] rep. No nighttime symptoms. Complains of clearing her throat a lot. Currently taking advair. Had pneumonia vaccine last year. Gets winded easily. Sleep is good. Had a colonoscopy over 10 years ago. Due for mammogram. Aunt with breast cancer. Left knee pain. Has tried tylenol. No numbness or tingling. Has not tried any braces. No imaging. No known injury. No prior bone density screening. Review of Systems Constitutional: Negative for fatigue. HENT: Negative. Eyes: Negative for visual disturbance. Respiratory: Positive for cough, shortness of breath and wheezing. Negative for chest tightness. Cardiovascular: Negative. Gastrointestinal: Negative. Musculoskeletal: Positive for arthralgias. Psychiatric/Behavioral: Negative. All other systems reviewed and are negative. Objective Physical Exam Vitals reviewed. Constitutional: Appearance: Normal appearance. HENT: Head: Normocephalic. Right Ear: Tympanic membrane, ear canal and external ear normal. Left Ear: Tympanic membrane, ear canal and external ear normal. Nose: Nose normal. No congestion. Mouth/Throat: Mouth: Mucous membranes are moist. Eyes: Pupils: Pupils are equal, round, and reactive to light. Cardiovascular: Rate and Rhythm: Normal rate and regular rhythm. Pulmonary: Effort: Pulmonary effort is normal. No respiratory distress. Breath sounds: Normal breath sounds. No wheezing or rhonchi. Musculoskeletal: General: No swelling or tenderness. Normal range of motion. Right lower leg: No edema. Left lower leg: No edema. Skin: General: Skin is warm and dry. Neurological: General: No focal deficit present. Mental Status: She is alert. Mental status is at baseline. Psychiatric: Mood and Affect: Mood normal. Behavior: Behavior normal. Current Outpatient Medications: Advair HFA 230-21 mcg/actuation inhaler, INHALE 2 PUFFS INSTRUCTED TWICE DAILY., Disp: , Rfl: albuterol 2.5 mg /3 mL (0.083 %) nebulizer solution, Inhale 3 mL (2.5 mg) every 4 hours if needed for shortness of breath., Disp: , Rfl: albuterol 90 mcg/actuation inhaler, PLEASE SEE ATTACHED FOR DETAILED DIRECTIONS, Disp: , Rfl: atorvastatin (Lipitor) 80 mg tablet, Take 1 tablet (80 mg) by mouth once daily., Disp: 90 tablet, Rfl: 3 citalopram (CeleXA) 40 mg tablet, Take 1 tablet (40 mg) by mouth once daily., Disp: 90 tablet, Rfl:3 oxybutynin (Ditropan) 5 mg tablet, Take 1 tablet (5 mg) by mouth 2 times a day., Disp: 90 tablet, Rfl: 3 Assessment/Plan Diagnoses and all orders for this visit: Medicare annual wellness visit, subsequent Comments: PCV 20 last year due for mammogram, DEXA, and colonoscopy Urinary incontinence, unspecified type - oxybutynin (Ditropan) 5 mg tablet; Take 1 tablet (5 mg) by mouth 2 times a day. Anxiety - citalopram (CeleXA) 40 mg tablet; Take 1 tablet (40 mg) by mouth once daily. Hyperlipidemia, unspecified hyperlipidemia type - atorvastatin (Lipitor) 80 mg tablet; Take 1 tablet (80 mg) by mouth once daily. Breast cancer screening by mammogram - BI mammo bilateral screening tomosynthesis; Future Encounter for screening for malignant neoplasm of colon - Colonoscopy Screening; Future Thyroid disorder screening - TSH with reflex to Free T4 if abnormal Mixed hyperlipidemia - Lipid Panel Hyperglycemia - Comprehensive Metabolic Panel - Hemoglobin A1c Other fatigue - CBC Screening for osteoporosis - XR DEXA bone density; Future Osteopenia of multiple sites - XR DEXA bone density; Future Chronic pain of left knee Comments: recommended knee brace xray if not improving Moderate persistent asthma, unspecified whether complicated Comments: still having persistent symptoms on advair trelegy symptoms given sees pulm Follow up in 6-12 months Nayt Hall DO documented in this encounterF[facility] Work Phone: [phone] 150-757507-24-2023 Miscellaneous Notes* Telephone Encounter - Jen Polanco MA - 09/05/2022 7:59 AM EDT Patient requesting refills as follows: Last office visit: 05/12/2022 Next office visit: 11/25/2022 Requested Prescriptions Pending Prescriptions Disp Refills ADVAIR HFA 230-21 mcg/actuation inhaler [Pharmacy Med Name: ADVAIR HFA 230-21 MCG INHALER] 12 Each 5 Sig: INHALE 2 PUFFS INSTRUCTED TWICE DAILY. Please review and advise. Jen Polanco MA documented in this encounterUniversity Hospitals Portage [facility] Center03-31-2023 Miscellaneous Notes* Telephone Encounter - Kimberly Martins RN - 05/13/2022 12:36 PM EDT Patient notified * Telephone Encounter - Kayode Mckeon MD - 05/13/2022 12:31 PM EDT Please let her know that her x-ray was formally interpreted by the radiologist and no abnormalitieswere seen or changes from her last one documented in this encounterUniversity Hospitals Portage [facility] Center03-30-2023 History of Present illness Narrative* Ivan Spann RT(R) - 05/12/2022 12:05 PM EDT Radiology Service Progress Note PATIENT NAME: Kassandra Smith DATE OF SERVICE: May 12, 2022 TIME: 11:16 AM PATIENT IDENTITY VERIFICATION COMPLETED USING TWO (2) IDENTIFIERS: Name and Date of confirmedby patient verbally. FALL SCREENING: Has the patient had 2 falls in the last year or 1 fall with injury or currently using an Ambulatory Assistive Device (Walker, Cane, Wheelchair, Crutches, etc.)? No PATIENT GENDER DATA: Female. status: : No status: NO. PATIENT RELEVANT IMPLANT DATA REVIEWED: Not Applicable RADIOLOGY DEPARTMENT: General X-ray: Exam(s) Completed: Chest X-Ray PERIPHERAL IV DATA: Not applicable SIGNED BY: RT Delores(R) May 12, 2022 11:16 AM documented in this encounterUniversity Hospitals Port[facility] Center03-30-2023 History of Present illness Narrative* Karoline Brown RRT - 05/12/2022 11:21 AM EDT PULM FUNCTION SMARTBLOCK: Provider: Kayode Mckeon MD Spirometry: 1 DLCO: 1 documented in this encounterUniversity Hospitals Portage [facility] Center02-13-2023 Miscellaneous Notes* Telephone Encounter - Kimberly Martins RN - 03/28/2022 9:12 AM EST DARLENE 10/22/2021 NOV 05/12/2022 documented in this [facility]09-26-2022 Miscellaneous Notes* Telephone Encounter - Sofía Euceda - 11/08/2021 8:48 AM EDT Pharmacy electronically requesting the following: Requested Prescriptions Pending Prescriptions Disp Refills potassium chloride (K-TAB) 10 mEq tablet [Pharmacy Med Name: POTASSIUM CL ER 10 MEQ TABLET] 90 tablet 3 Sig: TAKE 1 TABLET BY MOUTH EVERY DAY furosemide (LASIX) 20 mg tablet [Pharmacy Med Name: FUROSEMIDE 20 MG TABLET] 90 tablet 3 Sig: TAKE 1 TABLET BY MOUTH EVERY DAY Request for script(s) to be e-scripted to [facility]. Last seen in office: 06/21/2021 Sofía Euceda documented in this encounterUniversity Hospitals Portage Medical Center09-09-2022 History of Present illness Narrative* Kayode Mckeon MD - 10/22/2021 1:37 PM EDT Images from the original note were not included. . Pulmonary Clinic Follow-up Note Patient Name: Kassandra Smith PRIMARY CARE PHYSICIAN: Marcela Buchanan MD Date of visit: October 22, 2021 COMMUNICATION WILL BE SENT VIA SHARED MEDICAL RECORDS OR US MAIL. Subjective: Kassandra Smith is a 66 year old year old female who presents for follow-up of asthma/copd. Feelsshort of breath when she does things. Breathing does not feel too different. Albuterol has not felt much. She is on advair 2 puffs BID, does not feel like it helped much. Able to do most daily activities but some heavier exertions are difficult. MEDICATIONS: potassium chloride (K-TAB) 10 mEq tablet TAKE 1 TABLET BY MOUTH EVERY DAY furosemide (LASIX) 20 mg tablet TAKE 1 TABLET BY MOUTH EVERY DAY fluticasone-salmeterol HFA (ADVAIR HFA) 115-21 mcg/actuation inhaler Inhale 2 Puffs as instructed twice daily. atorvastatin (LIPITOR) 80 mg tablet Take 1 tablet by mouth daily at bedtime. albuterol HFA (PROVENTIL HFA, VENTOLIN HFA) 90 mcg/actuation inhaler Inhale 1 Puff as instructed every 4 hours as needed for wheezing/shortness of breath. Inhale 1 to 2 puffs every 4 to 6 hours as needed predniSONE (DELTASONE) 10 mg tablet Take 4 tablets daily for 3 days, then 3 tablets daily for 3 days, then 2 tablets daily for 3 days, then 1 tablet daily for 3 days Miscellaneous Medical Supply Dispense one nebulizer compressor with lifetime supplies. albuterol (PROVENTIL) 2.5 mg /3 mL (0.083 %) nebulizer solution Use 3 mL via nebulizer every 4 hours as needed for wheezing/shortness of breath. citalopram (CELEXA) 40 mg tablet Take 40 mg by mouth once daily. oxybutynin (DITROPAN) 5 mg tablet Take 5 mg by mouth twice daily. calcium carbonate (CALTRATE) 600 mg calcium (1,500 mg) tab Take 1,200 mg by mouth once daily. Vit A,C and C-Ceyjso-Cauuvhgz (OCUVITE) 300 mcg-200 mg-27 mg-2 mg tab Take 1 tablet by mouth once daily. aspirin, enteric coated (ASPIRIN, ENTERIC COATED) 81 mg EC tablet Take 81 mg by mouth once daily. Allergies: Patient has no known allergies. ROS: Pertinent positives and negatives are listed in the HPI, all other systems were reviewed and found to be negative. PHYSICAL EXAM: BP 108/64 (BP Site: Right Arm, BP Position: Sitting, BP Cuff Size: Regular Adult) Pulse 68 Ht 170.2 cm (5' 7) Wt 79.8 kg (176 lb) SpO2 91% BMI 27.57 kg/m General- nad, comfortable Eyes- eomi ENT-deferred, mask on CV- RRR Resp-minimal bibasilar crackles, unchanged fromlast Ext- no clubbing, cyanosis, or edema Neuro- normal gait, no focal deficits Psych- appropriate mood and affect Labs / Imaging / Diagnostic Studies: Independently reviewed CT chest from today which showed improvedareas of air trapping and mosaic attenuation, improved basilar atelectasis, and EDAC Reviewed spirometry from today which showed no obstruction and significantly improved FEV1 73%. 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 She did not feel significantly different on prednisoneback in May. [place] no longer shows obstruction Possible component of diastolic heart failure with slightly elevated left ventricular filling pressures - on low dose lasix Smoking history, 9 pack years, quit at age 31 Hyperlipidemia 10 pet birds for 3 years Physical deconditioning Plan: I suggested proceeding with bronchoscopy to confirm a diagnosis of HP and to eval for Edac. She does not have intention of getting rid of birds as they are very important to her and her sister whom she lives with. Her symptoms are not terribly bothersome right now and she does have improvement in CT chest as well as spirometry and prefers a more conservative route at this time Will monitor symptoms and PFTs and she will consider diagnostic procedure in the future if things are declining In the interim I will switch her to high-dose ICS/LABA and we will follow-up in 4 to 6 months with spirometry and DLCO. She will update me sooner should she choose to pursue bronchoscopy. We discussed potential risks of delayed diagnosis and treatment, thankfully she does not have sign of irreversible fibrosis at this time Kayode Mckeon MD October 22, 2021 2:08 PM documented in this encounterUniversity Hospitals Portage Medical Center09-09-2022 History of Present illness Narrative* Lia Collado RRT - 10/22/2021 1:25 PM EDT PULM FUNCTION SMARTBLOCK: Provider: Nilsa Roca MD Spirometry: 1 Exhaled Nitric Oxide: 1 documented in this encounterUniversity Hospitals Portage Medical Center09-09-2022 Procedure note* Lia Collado RRT - 10/22/2021 1:24 PM EDTAssociated Order(s): NITRIC OXIDE, EXHALED RESPIRATORY THERAPY ORAL EXHALED NITRIC OXIDE SERVICE DATE: 10/22/2021 SERVICE TIME: 1:24 PM Oral Exhaled Nitric Oxide measurement: 12.0 (ppb) Normal: Adult 5-20 ppb, pediatric (<12 years) 5-15 ppb High Normal / Increased: Adult 20-35 ppb, pediatric (<12 years) 15-25 ppb Moderately raised exhaled Nitric Oxide may indicate underlying inflammation, but note that: Cold and influenza can raise exhaled Nitric Oxide and some patients have higher baseline exhaled Nitric Oxide levels than others. High: Adult >35 ppb, pediatric (<12 years) >25 ppb Indicative of ongoing eosinophilic inflammation. Symptomatic patient likely to respond to steroids. Possible causes (if already on steroids): Poor compliance, recent allergen exposure, steroid dose inadequate, and steroid resistance. Note that not all patients with high exhaled nitric oxide levels display symptoms. Oral Exhaled Nitric Oxide measurement (Previous Encounters) Test Date Oral Exhaled Nitric Oxide (ppb) 10/22/2021 12.0 NAME: Lia Collado RRT PATIENT NAME: Kassandra Smith DATE: October 22, 2021 TIME: 1:24 PM documented in this encounterUniversity Hospitals Portage Medical Center09-09-2022 History of Present illness Narrative* Annalee Lei RT(R) - 10/22/2021 1:00 PM EDT Radiology Service Progress Note PATIENT NAME: Kassandra Smith DATE OF SERVICE: October 22, 2021 TIME: 1:28 PM PATIENT IDENTITY VERIFICATION COMPLETED USING TWO (2) IDENTIFIERS: Name and Date of confirmedby patient verbally. FALL SCREENING: Has the patient had 2 falls in the last year or 1 fall with injury or currently using an Ambulatory Assistive Device (Walker, Cane, Wheelchair, Crutches, etc.)? No PATIENT GENDER DATA: Female. status: : No status: NO. PATIENT RELEVANT IMPLANT DATA REVIEWED: Yes RADIOLOGY DEPARTMENT: CT; Exam(s) Completed: Chest PERIPHERAL IV DATA: Not applicable SIGNED BY: RT Austin(R) October 22, 2021 1:28 PM documented in this encounterUniversity Hospitals Portage Medical Center07-01-2022 Procedure note* Heriberto Damon - 08/13/2021 11:13 AM EDT Associated Order(s): OXIMETRY WITH AMBULATION RESPIRATORY THERAPY OXIMETRY WITH AMBULATION Oximetry with Ambulation Test for This Encounter O2 Device O2 Adapter NC O2 Flow SpO2% HR Activity Ft Walked (ft) Time (min) Avg Speed (MPH) R/A 94 69 Resting R/A 91 89 Walking, usual pace 495 3 1.87 R/A 94 101 Walking, fastest pace 755 3 2.86 General Information Pulse Oximetry Site Total Time Spent O2 Supply Carrier Walking Assistance/Device Forehead 30 None NAME: Heriberto Damon PATIENT NAME: Kassandra Smith DATE: August 13, 2021 TIME: 11:13 AM Comment: documented in this encounterUniversity Hospitals Portage Medical Center07-01-2022 History of Present illness Narrative* Heriberto Damon - 08/13/2021 10:53 AM EDT PULM FUNCTION SMARTBLOCK: Provider: Kayode Mckeon MD Oximetry - Ambulation: 1 documented in this encounterUniversity Hospitals Portage Medical Center07-01-2022 Miscellaneous Notes* Telephone Encounter - ROLAN Davidson - 08/13/2021 9:48 AM EDT Pharmacy electronically requesting the following: Pending Prescriptions Disp Refills POTASSIUM CHLORIDE ER 10 MEQ TABLET,EXTENDED RELEASE 60 tablet 1 Sig: TAKE 1 TABLET BY MOUTH EVERY DAY AMBER: Yes FUROSEMIDE 20 MG TABLET 60 tablet 1 Sig: TAKE 1 TABLET BY MOUTH EVERY DAY AMBER: Yes Request for script(s) to be e-scripted to [facility]. Last seen in office: 06/21/2021 ROLAN Davidson documented in this encounterUniversity Hospitals Portage Medical Center06-06-2022 Miscellaneous Notes* Telephone Encounter - Carlitos Meredith RN - 07/19/2021 2:59 PM EDT Reviewed with patient. She expressed good understanding. * Telephone Encounter - Kayode Mckeon MD - 07/19/2021 2:49 PM EDT advair sent to pharmacy, thanks * Telephone Encounter - Carlitos Meredith RN - 07/19/2021 2:44 PM EDT Dulera is not formulary. Advbair 250-50 mcg diskus; Advair HFA 115-21 mcg; BREO and Symbicort 160-4.5 mcg are covered. Can patient switch? * Telephone Encounter - Tammie Lynn - 07/19/2021 12:32 PM EDTSummary: Alternative requested Pharmacy requests an alternative to Dulera 100 MCG-5 MCG Inhaler Suggested Alternatives: Advair 250-50 Diskus, Advair HFA 115/21 MCG Inhaler, Breo Elipta 100-25 MCG INH, Symbicort 160-4.5 MCG inhaler. Fax in Providers box Sent an addition page pertaining to the previous fax. Fax in providers box. documented in this encounterUniversity Hospitals Portage Medical Center06-06-2022 History of Present illness Narrative* Althea Amezquita LPN - 07/19/2021 1:56 PM EDT Progress note, pulm rehab order, meghan results faxed to pulm rehab [phone] Althea Amezquita LPN July 19, 2021 1:58 PM * Kayode Mckeon MD - 07/19/2021 11:00 AM EDT Images from the original note were not included. . Pulmonary Clinic Follow-up Note Patient Name: Kassandra Smith PRIMARY CARE PHYSICIAN: Marcela Buchanan MD Date of visit: July 19, 2021 COMMUNICATION WILL BE SENT VIA SHARED MEDICAL RECORDS OR US MAIL. Subjective: Kassandra Smith is a 66 year old year old female who presents for follow-up of hospitalization from 2 months ago. On 05/26/2021 she presented to the emergency department with shortness of breath. She was preparing for outpatient PFTs when she was found to be short of breath and hypoxic and sent to the emergency department. She is a non-smoker. She was found to be hypoxemic. She had wheezing for years and was using as needed albuterol at home. Since leaving the hospital she has felt like her usual self, not wearing oxygen at home. She walks her dog every day, goes grocery shopping. Finished prednisone last month. Breathing did not feel different off of it. She does not take AirDuo much, she was getting sores on her mouth, she quit taking it. She uses just albuterol - 1-2 times a day. No prior hospitalization for breathing, has never had prednisone for breathing. Rare use of nebulizer. Former smoker, quit 35 years ago, maybe a pack a day for 9 years. 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 She has pets - cat, 3 dogs, and 10 birds. She has had birds for 3 years. She has had some SOB even prior to having birds. Maybe gradually worsened over the years. She has a lot of fatigue in the daytime. She can nap easily. Never evaluated for sleep apnea. No spacer at home. MEDICATIONS: atorvastatin (LIPITOR) 80 mg tablet Take 1 tablet by mouth daily at bedtime. furosemide (LASIX) 20 mg tablet Take 1 tablet by mouth once daily. potassium chloride (K-TAB) 10 mEq tablet Take 1 tablet by mouth once daily. fluticasone propion-salmeterol (AIRDUO RESPICLICK) 113-14 mcg/actuation breath activated inhaler Inhale 1 Inhalation as instructed twice daily. albuterol HFA (PROVENTIL HFA, VENTOLIN HFA) 90 mcg/actuation inhaler Inhale 1 Puff as instructed every 4 hours as needed for wheezing/shortness of breath. Inhale 1 to 2 puffs every 4 to 6 hours as needed predniSONE (DELTASONE) 10 mg tablet Take 4 tablets daily for 3 days, then 3 tablets daily for 3 days, then 2 tablets daily for 3 days, then 1 tablet daily for 3 days Miscellaneous Medical Supply Dispense one nebulizer compressor with lifetime supplies. albuterol (PROVENTIL) 2.5 mg /3 mL (0.083 %) nebulizer solution Use 3 mL via nebulizer every 4 hours as needed for wheezing/shortness of breath. citalopram (CELEXA) 40 mg tablet Take 40 mg by mouth once daily. oxybutynin (DITROPAN) 5 mg tablet Take 5 mg by mouth twice daily. calcium carbonate (CALTRATE) 600 mg calcium (1,500 mg) tab Take 1,200 mg by mouth once daily. Vit A,C and J-Pjbpee-Xzrvoset (OCUVITE) 300 mcg-200 mg-27 mg-2 mg tab Take 1 tablet by mouth once daily. aspirin, enteric coated (ASPIRIN, ENTERIC COATED) 81 mg EC tablet Take 81 mg by mouth once daily. Allergies: Patient has no known allergies. ROS: Pertinent positives and negatives are listed in the HPI, all other systems were reviewed and found to be negative. PHYSICAL EXAM: BP 104/70 Pulse 74 Ht 171 cm (5' 7.32) Wt 80.2 kg (176 lb 12.9 oz) SpO2 90% BMI 27.43 kg/m General- nad, comfortable Eyes- eomi ENT-deferred, mask on CV- RRR Resp-minimal bibasilar crackles Ext- no clubbing, cyanosis, or edema Neuro- normal gait, no focal deficits Psych- appropriate mood and affect Labs / Imaging / Diagnostic Studies: Independently reviewed CT chest from 05/27/2021 which showed some areas of air trapping and mosaic attenuation with some areas of basilar atelectasis. There is a nodule in the right breast as well. There were some areas of mucus plugging better subtle Reviewed spirometry from today which showed moderate obstruction with FEV1 of 60% with a borderlinebronchodilator response. Spirometry was normal following bronchodilator Assessment: 1. COPD/asthma-imaging consistent and there is a high suspicion of hypersensitivity pneumonitis related to her bird antigen exposures, she now has 10 birds at home and symptoms may have progressed since having these birds especially in the last year. I do not think smoking is contributory given the minimal smoking history. She did not feel significantly different on prednisone. 2. Acute hypoxic respiratory failure -no longer wears oxygen since her hospital discharge over a month ago 3. Possible component of diastolic heart failure with slightly elevated left ventricular filling pressures, she was started on low-dose Lasix 4. Smoking history, 9 pack years, quit at age 31 5. Hyperlipidemia 6. 10 pet birds for 3 years 7. Physical deconditioning Plan: Reviewed imaging with her We will plan on starting daily ICS/LABA as a trial. She was intolerant of air duo so we will try Dulera with a spacer as she used it very well on testing today Albuterol as needed Spirometry and exhaled nitric oxide with CT chest in 2 to 3 months. If still suspicion of hypersensitivity pneumonitis and not responding from a symptom standpoint, then we will proceed with bronchoscopy with lavage and biopsies to confirm a diagnosis before considering having to remove her pet birds. This will be very difficult on her sister and a little bit to herself as well as would like to be sure the diagnosis before recommending a major lifestyle change Return to the office in 2 to 3 months I spent a total of 40 minutes on the date of the service which included preparing to see the patient, [id number] patient care, completing clinical documentation, obtaining and/or reviewing separately obtained history, performing a medically appropriate examination, counseling and educating the pat ient/family/caregiver, ordering medications, tests, or procedures and independently interpreting results (not separately reported). Kayode Mckeon MD July 19, 2021 7:57 AM documented in this encounterUniversity Hospitals [facility]06-06-2022 Instructions* Patient Instructions* Kayode Mckeon MD - 07/19/2021 11:27 AM EDT Combined ICS/LABA: *Symbicort Breo *Dulera *Advair Wixela documented in this encounterUniversity Hospitals Portage [facility] Center06-06-2022 History of Present illness Narrative* Abida Louis - 07/19/2021 10:47 AM EDT PULM FUNCTION SMARTBLOCK: Provider: Kayode Mckeon MD Spirometry w/BD: 1 System: [id number] documented in this encounterUniversity Hospitals Portage [facility] Center05-09-2022 Instructions* Patient Instructions* Karan Fuentes MD - 06/21/2021 4:17 PM EDT Start furosemide 20 mg daily. Start potassium 10 mEq daily Get blood test in one week and call for results. Check BP in one week and call with reading. Please return in 3 months or sooner if needed. documented in this encounterUniversity Hospitals Portage [facility] Center05-09-2022 History of Present illness Narrative* Karan Fuentes MD - 06/21/2021 4:00 PM EDT Images from the original note were not included. [facility] [place] [facility] Department of Cardiovascular Medicine OUTPATIENT VISIT DATE June 21, 2021 OUTPATIENT VISIT TYPE ESTABLISHED PRIMARY CARE PHYSICIAN: Marcela Buchanan MD [address] [address] CHIEF COMPLAINT: No chief complaint on file. HISTORY OF PRESENT ILLNESS: Ms. Smith is a 66 year old female with history of for dyslipidemia, anxiety, remote smoking, negative cardiac catheterization May 2021, who presents today for a cardiovascular medicine follow-up visit. Notes from recent admission to [facility]: Consult Note May 26, 2021 Admit Date :05/26/2021 Ms. Smith is a 66 year old female with a history of dyslipidemia, anxiety, remote smoking, who presents to [facility] emergency room because of shortness of breath and hypoxemia. Patient was at [facility] having pulmonary function test. Patient was noted to be short of breath and hypoxemic with pulse ox of 85% and sent to the emergency room. According the patient she has had shortness of breath for the last couple of years. Has been seeingher family doctor. He performed a stress test and an echocardiogram which according to the patient were unremarkable. He also provided her with an inhaler. Has not really provided any benefit. Has had persistent exertional shortness of breath. Denies any chest discomfort. No fever or cough. Patient complains of intermittent chest tightness. She had a right and left heart catheterization. Revealed no significant coronary artery disease. Mildly elevated filling pressures. Still has sob. No improvement with nebs. No orthopnea, paroxysmal nocturnal dyspnea, leg edema, dizziness, palpitations or loss of consciousness. Some chest tightness when she has trouble breathing. Past Cardiac History : 1. Left And Right Heart Cath with Coronary Angiography LV Gram 05/28/2021 Mild pulmonary hypertension Mildly elevated filling pressures LMT - normal LAD - normal LCX - normal RCA-normal LVGram - normal wall motion. LVEF 55-60%. CONCLUSIONS: Mild pulmonary hypertension. Mildly elevated LVEDP. Normal coronaries. RECOMMENDATIONS: Treatment of pulmonary issues. Consider small dose of diuretics if SOB does not resolve. 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 ALLERGIES: ALLERGIES No Known Allergies MEDICATIONS: fluticasone propion-salmeterol (AIRDUO RESPICLICK) 113-14 mcg/actuation breath activated inhaler Inhale 1 Inhalation as instructed twice daily. albuterol HFA (PROVENTIL HFA, VENTOLIN HFA) 90 mcg/actuation inhaler Inhale 1 Puff as instructed every 4 hours as needed for wheezing/shortness of breath. Inhale 1 to 2 puffs every 4 to 6 hours as needed predniSONE (DELTASONE) 10 mg tablet Take 4 tablets daily for 3 days, then 3 tablets daily for 3 days, then 2 tablets daily for 3 days, then 1 tablet daily for 3 days Miscellaneous Medical Supply Dispense one nebulizer compressor with lifetime supplies. albuterol (PROVENTIL) 2.5 mg /3 mL (0.083 %) nebulizer solution Use 3 mL via nebulizer every 4 hours as needed for wheezing/shortness of breath. atorvastatin (LIPITOR) 80 mg tablet Take 80 mg by mouth daily at bedtime. citalopram (CELEXA) 40 mg tablet Take 40 mg by mouth once daily. oxybutynin (DITROPAN) 5 mg tablet Take 5 mg by mouth twice daily. calcium carbonate (CALTRATE) 600 mg calcium (1,500 mg) tab Take 1,200 mg by mouth once daily. Vit A,C and H-Okvpuc-Eobxehpc (OCUVITE) 300 mcg-200 mg-27 mg-2 mg tab Take 1 tablet by mouth once daily. aspirin, enteric coated (ASPIRIN, ENTERIC COATED) 81 mg EC tablet Take 81 mg by mouth once daily. REVIEW OF SYSTEMS: See HPI: Remaining ROS reviewed and negative. I personally interviewed, confirmed and edited the above information as obtained by others. PHYSICAL EXAMINATION: BP 118/66 Pulse 68 Ht 170.2 cm (5' 7) Wt 82.9 kg (182 lb 11.2 oz) BMI 28.61 kg/m O : General: In no acute distress, speaking in complete sentences. Skin: No clubbing, no cyanosis., no rash Eyes: Normal conjunctiva Oropharynx: Tongue moist Neck: no jugular venous distention Lungs: Scattered rhonchi. Heart: Regular rhythm, PMI not displaced, S1, S2 normal, no S3, no S4, no heaves, no rub and no murmur. Abdomen: Soft, nontender Extremities: No peripheral edema Neuro: alert, cooperative Cath site with no bleeding or hematoma. Good R radial. CARDIOVASCULAR MEDICINE TESTING: EKG: NSR; normal. Transthoracic Echo [facility] Date of service: 05/26/2021 - The left ventricle is normal in size. Left ventricular systolic function is normal. EF = 70 5% (visual est.) Normal left ventricular diastolic function. - The right ventricle is normal in size. Right ventricular systolic function is normal. - There are no significant valvular abnormalities. - The patient has not had a prior CC echocardiographic exam for comparison. IMPRESSION: Ms. Smith is a 66 year old female with history of for dyslipidemia, anxiety, remote smoking, hypoxemia, negative cardiac catheterization May 2021, who presents today for a cardiovascular medicine follow-up visit. ASSESSMENT/PLAN: 1. Precordial chest pain Non cardiac. Cath neg. 2. SOB (shortness of breath) Persistent. Had elevated LV filling pressures. Will try small dose of furosemide. 3. Hypoxemia On supplemental oxygen. BP check and BMP in one week and call back. 4. Dyslipidemia Labs per PCP at . On statins. Counseled regarding the heart healthy lifestyle. Plan of care discussed with patient. All questions answered. MD Ariane,[facility] Department of Cardiovascular Medicine Heart, Vascular and Thor[facility] [place] [address] Office Office Appointments: [phone] documented in this encounterUniversity Hospitals [facility]04-15-2022 NoteHNO ID: [id number] Author: Gisselle Horowitz RN Service: Care Management Author Type: Registered Nurse Type: Care Mgt Progress Note Filed: 05/28/2021 4:34 PM Note Text: CARE MANAGEMENT DISCHARGE NOTE SERVICE DATE: 05/28/2021 SERVICE TIME: 4:31 PM LOS: 2 days Admission Date: 05/26/2021 DISCHARGE ARRANGEMENT (list agency and phone number) Discharge Arrangement: Home with Self Care Provider Name: BRANT CAREGIVER ASSESSMENT: Caregiver is ready, willing and able to meet the patient's needs as recommended by the inter-professional team:: No Caregiver needed Does the patient have an acute stroke diagnosis, or has the patient had a stroke during this admission?: No Patient's transition needs and plan for meeting these needs: self care HANDOFF COMMUNICATION: Handoff to: Primary Care Physician Primary Care Physician Name/Phone: Dr. Buchanan [phone] TRANSPORTATION ARRANGEMENTS: Transportation Arrangements: Car ADDITIONAL CONTACT RESOURCES: See d/c instructions Discharge Information Row Name ED to Hosp-Admission (Current) from 05/26/[address] [employer] [facility] [employer] [facility] [employer] Please call when you arrive home so they can complete your home setup Equipment Needed Home oxygen Referral sent to [facility] for pt's home O2 and nebulizer. [facility] to deliver tank to bedside for pt's transport home. Pt aware she will need to contact [facility] (info on AVS) upon arrival home to complete equipment setup. Pt aware of need to schedule follow up appointments. SIGNATURE: Gisselle Horowitz RN PATIENT NAME: Kassandra Smith DATE: May 28, 2021 TIME: 4:31 PM PAGER/CONTACT #: [phone] NoteHNO ID: [id number] Author: Miguel Ponce PA-C Service: Pulmonary Disease Author Type: Physician [employer] Filler Type: Progress Notes Filed: 05/28/2021 3:31 PM Note Text: PULMONARY PROGRESS NOTE *Some elements have been copied from the Pulmonary note dated 05/27/21. The elements have been updated where appropriate and reflect current decision making from today, May 28, 2021. ASSESSMENT/PLAN Acute hypoxic respiratory failure - Unclear etiology - elevated Hgb suggesting chronic process possibly due to chronic bronchitis - Desaturation study showed significant desaturation with exertion - VTE work up negative - Echo bubble study negative for shunt - S/p cardiac cath Chronic bronchitis - CT Chest showed mosaic pattern suggestive of small airways disease with evidence of inflammation/mucous plugging - Started on airway clearance regimen and steroids/abx Breast nodule - CT Chest noted nodular density in right breast - Patient states had abnormal mammogram 5-6 years ago which was further evaluated with ultrasound which revealed cyst - Has not had mammogram recently - discussed with patient who stated she will follow up with PCP Pulmonary Plan: - Continue albuterol nebs. Will start on Breo on discharged and continue LUIS ALBERTO as needed. E-scripts completed. - Prescriptions for supplemental O2 and nebulizer on chart - Continue prednisone 40 mg daily with taper - Continue doxycycline 100 mg BID x 7 days - Continue acapella/mucinex - Previously scheduled outpatient Pulmonary appointment will need to be re-scheduled. Will look to arrange. Ok to discharge from Pulmonary standpoint as long as supplemental O2 arranged for home use. Discussed with CM and nursing staff. TODAY'S VISIT Reassess respiratory status INTERVAL HISTORY Feeling better. Not bringing up much phlegm. Underwent cardiac cath today. Desaturation study completed: saturating 90% on room air at rest, desaturated to 86% with exertion improved to 90s on 3 lpm NC. MEDICATIONS Current Facility-Administered Medications Medication Dose Route Frequency - iv contrast (radiology procedure) INTRAVENOUS DIRECTED PRN - albuterol 2.5 mg /3 mL (0.083 %) 2.5 mg (PROVENTIL) 2.5 mg INHALATION q 4 H while awake - predniSONE 40 mg tab(s) (DELTASONE) 40 mg ORAL DAILY - guaiFENesin 1,200 mg ER tab(s) (MUCINEX) 1,200 mg ORAL q 12 H - doxycycline hyclate 100 mg cap(s) (VIBRAMYCIN) 100 mg ORAL q 12 H - docusate sodium 100 mg cap(s) (COLACE) 100 mg ORAL BID PRN - enoxaparin 40 mg injection (LOVENOX) 40 mg SUBCUTANEOUS q 24 HR - ipratropium-albuterol 3 mL nebulizer solution (DUONEB) 3 mL INHALATION q 4 H PRN - sodium chloride 0.9 % (flush) 2-10 mL (BD POSIFLUSH) 2-10 mL INTRAVENOUS DIRECTED PRN And - perflutren lipid microspheres 1.1 mg/mL 1.3 mL injection (DEFINITY) 1.3 mL INTRAVENOUS DIRECTED PRN - aspirin 81 mg chewable tab(s) 81 mg ORAL DAILY - atorvastatin 80 mg tab(s) (LIPITOR) 80 mg ORAL AT BEDTIME OBJECTIVE BP 133/65 Pulse 65 Temp 36.3 ?C (97.3 ?F) (Oral) Resp 18 Wt 80.3 kg (177 lb) SpO2 90% Temp (24hrs), Av.4 ?C (97.6 ?F), Min:36.3 ?C (97.3 ?F), Max:36.5 ?C (97.7 ?F) Gen'l - Awake in bed. Conversant. HENT - Normocephalic, atraumatic Lungs - Diminished bilaterally, bibasilar rales not as prominent today. Respirations unlabored. No conversational dyspnea. Cardio/Vasc - No LE edema Skin - No cyanosis MS/Extrems - MORLEY Neuro/Psych - Alert and oriented Data: CBC, Coags, BMP, Mg, Phos Recent Labs 05/28/21 0629 05/26/21 1012 05/26/21 0946 WBC -- -- 7.70 HB -- -- 15.7* HCT -- -- 45.9 PLT -- -- 277 INR -- 1.1 -- NA 140 -- 141 K 4.3 -- 3.8 CHLOR 104 -- 103 CO2 28 -- 27 BUN 18 -- 15 CREAT 0.72 -- 0.86 GLUC 114* -- 96 CA 9.4 -- 9.7 Plan above discussed with staff Hat[employer]y Man Dr. Perez ~~~~~~~~~~~~~~~~~~~~~~~~~~~~~~~~~~~~~~~~~~~~~~~~~~~~~ Miguel Ponce PA-C [facility] Pager: [phone] [facility] Phys[facility] NoteHNO ID: [id number] Author: Gisselle Horowitz RN Service: Care Management Author Type: Registered Nurse Type: Care Mgt Progress Note Filed: 05/28/2021 1:26 PM Note Text: CARE MANAGEMENT PROGRESS NOTE SERVICE DATE: 05/28/2021 SERVICE TIME: 1:23 PM LOS: 2 days Needs Prior to Discharge: Desat Study;Oxygen Set-up Pt for cardiac cath today. Spoke with pt to discuss d/c plan. Pt denies any needs and is agreeable to return home with self care upon d/c. Pt remains on 5L NC; pt aware she will need desat study prior to d/c to determine any home oxygen needs. Will continue to follow. SIGNATURE: Gisselle Horowitz RN PATIENT NAME: Kassandra Smith DATE: May 28, 2021 TIME: 1:23 PM PAGER/CONTACT #: [phone] NoteHNO ID: [id number] Author: Gisselle Horowitz RN Service: Care Management Author Type: Registered Nurse Type: Care Mgt Progress Note Filed: 05/27/2021 1:57 PM Note Text: CARE MANAGEMENT PROGRESS NOTE SERVICE DATE: 05/27/2021 SERVICE TIME: 1:56 PM LOS: 1 day Needs Prior to Discharge: Desat Study Pt currently on 6L NC; will need desat study prior to d/c to determine home oxygen needs. Will continue to follow. SIGNATURE: Gisselle Horowitz RN PATIENT NAME: Kassandra mSith DATE: May 27, 2021 TIME: 1:56 PM PAGER/CONTACT #: [phone] NoteHNO ID: [id number] Author: Shanika Bryan MD Service: ? Author Type: Physician Type: Progress Notes Filed: 05/28/2021 2:23 PM Note Text: INTERNAL MEDICINE PROGRESS NOTE SERVICE DATE: 05/27/2021 SERVICE TIME: 11:25 am ADMITTING PHYSICIAN: Shanika Bryan MD Subjective CHIEF COMPLAINT: No new complains Current Facility-Administered Medications Medication Dose Route Frequency - iv contrast (radiology procedure) INTRAVENOUS DIRECTED PRN - enoxaparin 40 mg injection (LOVENOX) 40 mg SUBCUTANEOUS q 24 HR - sodium chloride 0.9 % (flush) 2-10 mL (BD POSIFLUSH) 2-10 mL INTRAVENOUS DIRECTED PRN And - perflutren lipid microspheres 1.1 mg/mL 1.3 mL injection (DEFINITY) 1.3 mL INTRAVENOUS DIRECTED PRN - ipratropium-albuterol 3 mL nebulizer solution (DUONEB) 3 mL INHALATION q 4 H PRN - sodium chloride 0.9 % (flush) 2-10 mL (BD POSIFLUSH) 2-10 mL INTRAVENOUS DIRECTED PRN And - perflutren lipid microspheres 1.1 mg/mL 1.3 mL injection (DEFINITY) 1.3 mL INTRAVENOUS DIRECTED PRN - aspirin 81 mg chewable tab(s) 81 mg ORAL DAILY - atorvastatin 80 mg tab(s) (LIPITOR) 80 mg ORAL AT BEDTIME INTERVAL HISTORY OF PRESENT ILLNESS: As above Objective PHYSICAL EXAM: Patient Vitals for the past 24 hrs: BP Temp Temp src Pulse Resp SpO2 05/27/21 1043 105/58 36.5 ?C (97.7 ?F) ? 63 ? 96 % 05/27/21 0537 (!) 112/41 36.3 ?C (97.3 ?F) Oral 78 18 98 % 05/26/21 2005 131/59 36.5 ?C (97.7 ?F) Oral 80 18 93 % 05/26/21 1720 117/54 36.6 ?C (97.9 ?F) Oral 84 18 97 % 05/26/21 1506 110/57 36.3 ?C (97.3 ?F) Oral 69 18 98 % 05/26/21 1400 117/53 ? ? 71 21 (!) 94 % 05/26/21 1300 117/62 ? ? 74 16 95 % There is no height or weight on file to calculate BMI. LUNGS: Lungs clear to auscultation. Good diaphragmatic excursion. CARDIAC: Normal S1 and S2; no gallops ABDOMEN: Abdomen soft, non-tender, BS normal, No masses or organomegaly EXTREMETIES:no edema, , No ulcers NEURO: Alert, oriented X 3, Cranial nerves II-XII intact PULSES: palpable DATA: Diagnostic tests reviewed for today's visit: Results for KASSANDRA SMITH ( ) as of 05/27/2021 11:25 Ref. Range 05/27/2021 09:31 Color Latest Ref Range: Yellow Yellow Clarity Latest Ref Range: Clear Clear Specific [place], Ur Latest Ref Range: 1.005 - 1.030 >=1.030 (H) pH, Urine Latest Ref Range: 5.0 - 8.0 5.5 Protein, Urine Latest Ref Range: Negative Negative Glucose, Urine Latest Ref Range: Negative Negative Ketones, Urine Latest Ref Range: Negative Negative Bilirubin, Urine Latest Ref Range: Negative Negative Hemoglobin/Blood,Ur Latest Ref Range: Negative Negative Urobilinogen Latest Ref Range: 0.2-1.0 EU/dL 0.2 EU/dL Leukest Latest Ref Range: Negative Trace (A) Nitrites Latest Ref Range: Negative Negative WBC, Urine Latest Ref Range: 0-5 /HPF >25 /HPF (A) RBC, Urine Latest Ref Range: 0-3 /HPF 3-5 /HPF (A) Epithelial Cells Latest Units: /HPF Few Echo : The left ventricle is normal in size. Left ventricular systolic function is normal. EF = 70 ? 5% (visual est.) Normal left ventricular diastolic function. - The right ventricle is normal in size. Right ventricular systolic function is normal. - There are no significant valvular abnormalities. - The patient has not had a prior CC echocardiographic exam for comparison. ? Assessment/Plan 1. Sob with hypoxia- telemetry, cardiac enzymes, CXR - unremarkable,, d dimer unremarkable, S/p echo, if pulmonary work up is negative- awaiting evaluation, plan is further cardiac work up- discussed with Dr. Butler. 2. Dyslipidemia- resume statin 3. Anxiety- resume citalopram Plan of care discussed with: Patient and RN. Medication and Non-Pharmacologic VTE Prophylaxis/Anticoagulants Anticoagulant AND Antiplatelet Medications (From admission, onward) Start Dose Route Frequency Last Action Ordered Stop 05/26/21 2200 aspirin 81 mg chewable tab(s) 81 mg ORAL DAILY Given, 05/27 1001 05/26/21 2153 -- 05/26/21 1300 enoxaparin 40 mg injection (LOVENOX) (enoxaparin injection (LOVENOX)) 40 mg SUBCUTANEOUS EVERY 24 HOURS Given, 05/26 1329 05/26/21 1244 -- VTE Prophylaxis: VTE prophylaxis appropriate SIGNATURE: Shanika Bryan MD PATIENT NAME: Kassandra Smith DATE: May 27, 2021 TIME: 11:25 [facility]2022 NoteHNO ID: [id number] Author: Mireya Hanna RPh Service: Pharmacy Author Type: Pharmacist Type: Plan of Care Filed: 05/27/2021 10:49 AM Note Text: PHARMACY MEDICATION REVIEW Patient Name: Kassandra Smith : 1955 The following medications were updated within the TOOL MECHANIC medication list: Medications ADDED to TOOL MECHANIC medication list ? Citalopram ? Oxybutynin ? Atorvastatin ? Albuterol ? ASA ? Calcium ? Ocuvite Medications CHANGED on TOOL MECHANIC medication list ? N/A Medications REMOVED from TOOL MECHANIC medication list ? N/A Additional comments: Pt had med list and was very familiar with her medications. The below information represents the best possible medication history: Yes Medication history completed by: Pharmacist: Mireya Hanna RPh Source of history: Patient: Reliability of source: Appears reliable, clearly identified: Medication name, Medication dose and Medication frequency and Care Everywhere records Medication nonadherence identified: No barriers noted Reconciliation completed: Yes Completed by: Mireya Hanna All TOOL MECHANIC medications addressed by LIP and Medications intentionally held at admission: all medications held, with exception of ASA and atorvastatin Patient interested in Bedside Delivery Services or using OP Pharmacy at discharge? Yes. Discharge Pharmacy Updated Preferred outpatient pharmacy: [id number] [place] [address] - [id number] - [phone] [place] [address] Allergies: No Known Allergies Prior to Admission Medications Prescriptions Last Dose Informant Patient Reported? Taking? Vit A,C and T-Wychgq-Lcnupdra (OCUVITE) 300 mcg-200 mg-27 mg-2 mg tab Yes Yes Sig: Take 1 tablet by mouth once daily. albuterol HFA (PROVENTIL HFA, VENTOLIN HFA) 90 mcg/actuation inhaler Yes Yes Sig: Inhale as instructed. Inhale 1 to 2 puffs every 4 to 6 hours as needed aspirin, enteric coated (ASPIRIN, ENTERIC COATED) 81 mg EC tablet Yes Yes Sig: Take 81 mg by mouth once daily. atorvastatin (LIPITOR) 80 mg tablet Yes Yes Sig: Take 80 mg by mouth daily at bedtime. calcium carbonate (CALTRATE) 600 mg calcium (1,500 mg) tab Yes Yes Sig: Take 1,200 mg by mouth once daily. citalopram (CELEXA) 40 mg tablet Yes Yes Sig: Take 40 mg by mouth once daily. oxybutynin (DITROPAN) 5 mg tablet Yes Yes Sig: Take 5 mg by mouth twice daily. 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 Last discharge within 30 days: No Advance Directive: Current Advance Directive: None Wildlife Photographer Attempted to Assist with AD Completion: Yes Action: Education Provided Health LiteracyHow often do you need to have someone help you when you read instructions, pamphlets, or other written material from your doctor or pharmacy? : 1 - Never How confident are you filling out medical forms by yourself?: 1 - Extremely If Patient scores > 3 on either question, the following interventions were put into place:: Patient did not score > 3 on either question. Baseline Mental Status Prior to this Illness what was the patient's Baseline Mental Status?: Alert AND Oriented Prior to this illness, has anyone described the patient having any of the following behaviors?: Not Applicable Relationship of the informant to the patient:: Self Functional Status: Independent Does Patient Currently Receive Any Community Services or Home Care?: None Equipment Prior to Admission: None Has the Patient Been in a Intermediate Facility in the Past 30 days?: No SOCIAL: Living Arrangements: Home Lives With: Other: See Comment (sister) Financial Resources: Retired Primary Contact: Extended Emergency Contact Information Primary Emergency Contact: SERINA HUGHES Mobile Relation: Sister Caregiver AssessmentCaregiver is ready, willing and able to meet the patient's needs as recommended by the inter-professional team:: No Caregiver needed Does the patient have an acute stroke diagnosis, or has the patient had a stroke during this admission?: No Patient's transition needs and plan for meeting these needs: home, TBD Patient's perception of need for this admission: Medication Adherance I am convinced of the importance of my prescription medication: 0 - Agree Completely I worry that my prescription medication will do more harm than good to me : 0 - Disagree Completely I feel financially burdened by my [id number] expenses for my prescription medication:: 0 - Disagree Completely Risk Score: 0 Patient is categorized as: Low risk < 2 Are you interested in bedside delivery of your medications? No Is Patient Psychosocially Complex?: No ASSESSMENT AND PLAN: Medical Needs: Medical Needs: None Psychosocial Needs: Psychosocial Needs: None FREEDOM OF CHOICE EXPLAINED: [place] of Choice Given: No Reason Not Given: No placements necessary POTENTIAL TRANSITION PLANS Home;To Be Determined Met with patient. She states she lives with her sister and is independent with ADL's. No discharge concerns voiced at this time. Will follow for possible o2 needs. SIGNATURE: ALAN Irvin PATIENT NAME: Kassandra Smith DATE: May 26, 2021 TIME: 1:02 PM PAGER/CONTACT #: [phone] Note COVID 19 RESULT: SARS-CoV-2 (Agent of COVID-19) Not Detected by RT-PCR or equivalent method. This test has been authorized by FDA under an Emergency Use Authorization (EUA). INFLUENZA A PCR: Negative for Influenza A by RT-PCR INFLUENZA B PCR: Negative for Influenza B by RT-PCR RSV PCR: Negative for Respiratory Syncytial Virus (RSV) by PCRHolzer HospitalComment on above:Performed By: #### ALLBG #### [facility] CLIA [id number] [facility] [id number] [id number] History of Present illness NarrativeI am seeing Kassandra at the request of Dr. Harris in the evaluation of shortness of breath. Kassandra is 66. In the last year due to she was diagnosed with shortness of breath likely due to asthma. She was admitted to [facility] in May. At that point she underwent cardiac catheterization evidently revealing normal coronary arteries. In follow-up with her [facility] mobile lab technician she was placed on Lasix and potassium for unclear reasons. She tells me she feels the same as she did before shewas on the Lasix. She has not had any lower extremity edema. Her breathing is not better or worse. She wants to switch to the system and therefore came in for another evaluation. [id number] Work Phone: Evaluation note* Diagnosis Chronic obstructive pulmonary disease, unspecified COPD type (HCC)- [facility] COPD with chronic bronchitis (HCC)- Primary Obstructive chronic bronchitis without exacerbation [facility] Diagnosis Dyspnea, unspecified type- Primary [facility] Diagnosis Precordial chest pain- Primary Precordial pain SOB (shortness of breath) Shortness of breath Hypoxemia Dyslipidemia Other and unspecified hyperlipidemia [facility] Diagnosis Dyspnea, unspecified type- Primary [facility] Diagnosis Dyspnea, unspecified type [facility] Diagnosis Chronic obstructive pulmonary disease, unspecified COPD type (HCC)- Primary Asthma with chronic obstructive pulmonary disease (COPD) (HCC) Chronic obstructive asthma, unspecified Interstitial pulmonary disease (HCC) Postinflammatory pulmonary fibrosis [facility] Diagnosis Uncomplicated asthma, unspecified asthma severity, unspecified whether persistent- Primary [facility] Diagnosis Chronic obstructive pulmonary disease, unspecified COPD type (HCC) [facility] Diagnosis Asthma with chronic obstructive pulmonary disease (COPD) (HCC)- Primary Chronic obstructive asthma, unspecified [facility] Diagnosis Hypersensitivity pneumonitis (HCC)- Primary Unspecified allergic alveolitis and pneumonitis Uncomplicated asthma, unspecified asthma severity, unspecified whether persistent [facility] Diagnosis Hypersensitivity pneumonitis (HCC) Unspecified allergic alveolitis and pneumonitis Uncomplicated asthma, unspecified asthma severity, unspecified whether persistent [facility] Diagnosis Hypersensitivity pneumonitis (HCC) Unspecified allergic alveolitis and pneumonitis [facility] Diagnosis Hypersensitivity pneumonitis (HCC) Unspecified allergic alveolitis and pneumonitis [facility] Diagnosis Hypersensitivity pneumonitis (HCC) Unspecified allergic alveolitis and pneumonitis Uncomplicated asthma, unspecified asthma severity, unspecified whether persistent [facility] Diagnosis Medicare annual wellness visit, subsequent- Primary Urinary incontinence, unspecified type Anxiety Anxiety state, unspecified Hyperlipidemia, unspecified hyperlipidemia type Breast cancer screening by mammogram Encounter for screening for malignant neoplasm of colon Thyroid disorder screening Screening for thyroid disorder Mixed hyperlipidemia Hyperglycemia Other abnormal glucose Other fatigue Screening for osteoporosis Special screening for osteoporosis Osteopenia of multiple sites Chronic pain of left knee Moderate persistent asthma, unspecified whether complicated Breast asymmetry documented in this encounter [facility] Work Phone: Evaluation note* Diagnosis Uncomplicated asthma, unspecified asthma severity, unspecified whether persistent [facility] Diagnosis Uncomplicated asthma, unspecified asthma severity, unspecified whether persistent [facility] Diagnosis Uncomplicated asthma, unspecified asthma severity, unspecified whether persistent- Primary Hypersensitivity pneumonia (HCC) Unspecified allergic alveolitis and pneumonitis Interstitial pulmonary disease (HCC) Postinflammatory pulmonary fibrosis [facility] Diagnosis Strain of right hamstring, initial encounter Posterior right knee pain documented in this encounter [facility] Work Phone: Evaluation note* Diagnosis Hypersensitivity pneumonitis (HCC)- Primary Unspecified allergic alveolitis and pneumonitis Acute hypoxemic respiratory failure (HCC) documented in this encounter [facility] note* Diagnosis Sprain of anterior talofibular ligament of left ankle, initial encounter- Primary Fall, initial encounter documented in this encounter [facility] Work Phone: Evaluation note* Diagnosis Uncomplicated asthma, unspecified asthma severity, unspecified whether persistent Hypersensitivity pneumonia (HCC) Unspecified allergic alveolitis and pneumonitis Interstitial pulmonary disease (HCC) Postinflammatory pulmonary fibrosis documented in this encounter [facility] note* Diagnosis Hypersensitivity pneumonia (HCC) Unspecified allergic alveolitis and pneumonitis documented in this encounter [facility] note* Diagnosis Hypersensitivity pneumonitis (HCC)- Primary Unspecified allergic alveolitis and pneumonitis documented in this encounter [facility] note* Diagnosis Uncomplicated asthma, unspecified asthma severity, unspecified whether persistent- Primary documented in this encounter [facility] note* Diagnosis Hypersensitivity pneumonia (HCC)- Primary Unspecified allergic alveolitis and pneumonitis documented in this encounter [facility] note* Diagnosis Hypersensitivity pneumonia (HCC) Unspecified allergic alveolitis and pneumonitis documented in this encounter [facility] note* Diagnosis Hypersensitivity pneumonia (HCC) Unspecified allergic alveolitis and pneumonitis documented in this encounter [facility] note* Diagnosis Hypersensitivity pneumonia (HCC)- Primary Unspecified allergic alveolitis and pneumonitis Uncomplicated asthma, unspecified asthma severity, unspecified whether persistent documented in this encounter [facility] note* Diagnosis Hypersensitivity pneumonia (HCC) Unspecified allergic alveolitis and pneumonitis documented in this encounter [facility] note* Diagnosis Hypersensitivity pneumonia (HCC) Unspecified allergic alveolitis and pneumonitis documented in this encounter [facility] note* Diagnosis Hypersensitivity pneumonitis (HCC)- Primary Unspecified allergic alveolitis and pneumonitis documented in this encounter [facility] note* Diagnosis Uncomplicated asthma, unspecified asthma severity, unspecified whether persistent Hypersensitivity pneumonia (HCC) Unspecified allergic alveolitis and pneumonitis Interstitial pulmonary disease (HCC) Postinflammatory pulmonary fibrosis documented in this encounter [facility] note* Diagnosis Dyspnea, unspecified type documented in this encounter [facility] note* Diagnosis Interstitial pulmonary disease (HCC) Postinflammatory pulmonary fibrosis documented in this encounter [facility] note* Diagnosis Hypersensitivity pneumonia (HCC) Unspecified allergic alveolitis and pneumonitis Uncomplicated asthma, unspecified asthma severity, unspecified whether persistent documented in this encounter [facility] note* Diagnosis Closed fracture of multiple ribs of right side, initial encounter- Primary Closed fracture of multiple ribs of right side, initial encounter Contusion of right lung, initial encounter Acute pain Interstitial lung disease (Multi) Postinflammatory pulmonary fibrosis documented in this encounter [facility] Work Phone: Evaluation note* Diagnosis Hypoxia- Primary Hypoxemia Closed fracture of multiple ribs of right side with routine healing, subsequent encounter documented in this encounter [facility] note* Diagnosis Closed fracture of multiple ribs of right side with routine healing, subsequent encounter- Primary Hypoxia Hypoxemia Hypoxia- Primary Hypoxemia Closed fracture of multiple ribs of right side with routine healing, subsequent encounter documented in this encounter [facility] note* Diagnosis Hypoxia- Primary Hypoxemia documented in this encounter [facility] note* Diagnosis Encounter for support and coordination of transition of care- Primary Closed fracture of multiple ribs of right side, initial encounter Acute pain of right shoulder Stress incontinence, female documented in this encounter [facility] Work Phone: Evaluation note* Diagnosis Right rotator cuff tendonitis- Primary Acute pain of right shoulder documented in this encounter [facility] Work Phone: Evaluation note* Diagnosis Colon cancer screening- Primary Special screening for malignant neoplasms, colon documented in this encounter [facility] Work Phone: Evaluation note* Diagnosis Mild persistent asthma without complication (HHS-HCC)- Primary Current moderate episode of major depressive disorder, unspecified whether recurrent (Multi) Anxiety Anxiety state, unspecified Hyperlipidemia, unspecified hyperlipidemia type Abnormal finding of blood chemistry, unspecified Hyperlipidemia, unspecified hyperlipidemia type Abnormal finding of blood chemistry, unspecified documented in this encounter [facility] Work Phone: Evaluation note* Diagnosis Hypersensitivity pneumonitis (HCC)- Primary Unspecified allergic alveolitis and pneumonitis Closed fracture of multiple ribs of right side with routine healing, subsequent encounter [facility] Diagnosis Hypersensitivity pneumonitis (HCC) Unspecified allergic alveolitis and pneumonitis documented in this encounter [facility] note* Diagnosis Uncomplicated asthma, unspecified asthma severity, unspecified whether persistent (HCC)- [facility] Diagnosis Uncomplicated asthma, unspecified asthma severity, unspecified whether persistent (HCC) [facility]* Diagnosis Uncomplicated asthma, unspecified asthma severity, unspecified whether persistent (HCC)- Primary Hypersensitivity pneumonia (HCC) Unspecified allergic alveolitis and pneumonitis [facility] Diagnosis Routine general medical examination at health care facility- Primary Routine general medical examination at a health care facility Current moderate episode of major depressive disorder, unspecified whether recurrent (Multi) Closed fracture of multiple ribs of right side, initial encounter Anxiety Anxiety state, unspecified Hyperlipidemia, unspecified hyperlipidemia type Breast cancer screening by mammogram Well adult exam Routine general medical examination at a health care facility documented in this encounter [facility] Work Phone: Evaluation note* Diagnosis Breast cancer screening by mammogram documented in this encounter [facility] Work Phone: Evaluation note* Diagnosis Acute pain of right shoulder- Primary documented in this encounter [facility] Work Phone: [phone] note* Diagnosis Acute pain of right shoulder documented in this encounter [facility] Work Phone: Evaluation note* Diagnosis Rotator cuff strain, right, initial encounter- Primary documented in this encounter [facility] Work Phone: Evaluation note* Diagnosis Rotator cuff strain, right, initial encounter- Primary Colon cancer screening- Primary Special screening for malignant neoplasms, colon Hyperlipidemia, unspecified hyperlipidemia type Tear of right rotator cuff, unspecified tear extent, unspecified whether traumatic Visit for pre-operative examination Preop testing- Primary Unspecified pre-operative examination Rotator cuff strain, right, initial encounter documented in this encounter [facility] Work Phone: Evaluation note* Diagnosis Rotator cuff strain, right, initial encounter- Primary Rotator cuff strain, right, initial encounter Eczema, unspecified type S/P rotator cuff repair S/P right rotator cuff repair documented in this encounter [facility] Work Phone: Evaluation note* Diagnosis Hypersensitivity pneumonia (HCC)- Primary Unspecified allergic alveolitis and pneumonitis [facility]* Diagnosis Hypersensitivity pneumonitis (HCC)- Primary Unspecified allergic alveolitis and pneumonitis Asthma, unspecified asthma severity, unspecified whether complicated, unspecified whether persistent (HCC) [facility]* Diagnosis Rotator cuff strain, right, initial encounter- Primary Rotator cuff strain, right, initial encounter Eczema, unspecified type S/P rotator cuff repair S/P right rotator cuff repair Strain of tendon of right rotator cuff, subsequent encounter documented in this encounter [facility] Work Phone: Evaluation note* Diagnosis Hypersensitivity pneumonitis (HCC)- Primary Unspecified allergic alveolitis and pneumonitis [facility]* Diagnosis Hypersensitivity pneumonitis (HCC)- Primary Unspecified allergic alveolitis and pneumonitis [facility]* Diagnosis Rotator cuff strain, right, initial encounter- Primary Rotator cuff strain, right, initial encounter Eczema, unspecified type S/P rotator cuff repair S/P right rotator cuff repair Encounter for support and coordination of transition of care- Primary S/P right rotator cuff repair Acute postoperative respiratory insufficiency ILD (interstitial lung disease) (Multi) Postinflammatory pulmonary fibrosis documented in this encounter [facility] Work Phone: History of Present illness Narrative* Having itching and discomfort in rectal area and going upwards along the buttock. States when she itches there is sometimes bleeding. Denies any blood with stool. Has tried multiple OTC hemorrhoid medications without resolution of symptoms. * Due for follow up for labs including lipid, cmp, cbc. * Continue to experience significant shortness of breath with minimal to no relief with albuterol inhaler. Had stress echo as well as CXR last year and both were normal. At that time we discussed that this may be pulmonary especially with her history of smoking and second hand smoke. We discussed pulmonary function testing but never proceeded with this at that time. [place] [id number] Work Phone: History of Present illness Narrative* The patient is being seen for the initial annual wellness visit. * Past Medical, Surgical and Family History: reviewed and updated in chart. * Medications and Supplements: Review of all medications by a prescribing practitioner or clinical pharmacist (such as prescriptions, OTCs, herbal therapies and supplements) documented in the medical record. * No, the patient is not using opioids. * Tobacco use: Non-User * Alcohol use: Non-User * Illicit drug use: Non-User * Current diet: well balanced diet. * Exercise Frequency: infrequently. * Depression/Suicide Screening: Patient has a current diagnosis of depression. * Stable on citalopram * Hearing Impairment: none. * Cognitive Impairment: No cognitive impairment observed. * Bathing: performs independently. * Dressing: performs independently. * Walking: performs independently. * Managing Finances: performs independently. * Shopping: performs independently. * Managing Medications: performs independently. * Housework / Basic Home Maintenance: performs independently. * Falls Risk Screening:. KASSANDRA has not fallen in the last 6 months. * Home safety risk factors: none. * Additional Information: Full Code. * Here for Medicare wellness visit. Due for mammogram, colonoscopy, and pneumonia vaccine. * Also mentions chronic vaginal itching and recent work-up due to shortness of breath. * Was experiencing shortness of breath for the past few months. Undergoing workup with pulmonology. Does have birds. Possible pneumonitis. Was also recommended to follow up with cardiology. Planning tosee Dr Jamison. [facility] Work Phone: History of Present illness Narrative* Luis is a 66 year old female who presents for vulvar pruritis for at least a year. * Referred by Dr. Hall * Has used witch bryan and monistat cream without much relief. If scratching a lot, will make labias bleed. Denies any vaginal bleeding or discharge. * h/o x1, has been leaking for years, mostly due to cough or sneeze. Wearing pads daily * Vaginal discharge: none, no odor * Itching: all outer skin * Dyspareunia: no, not SA * Fever/chills: no * Abdominal pain: no * Bladder: Negative for dysuria or frequency * Bowel: No blood in stool, pain with BM, tarry stool, persistent diarrhea or constipation * Any new sexual partners or concern for STD exposure: n/a * Any history of STDs: no * Does your partner have any new complaints: n/a * Are you currently taking any medications to treat vaginitis: see above * Do you use feminine sprays, douches or deodorants: no * Menopause: mid-50s, never HRT * Last pap: 7 years ago, normal, never abnormal [facility] Work Phone: History of Present illness Narrative* The patient is being seen for the initial annual wellness visit. * Past Medical, Surgical and Family History: reviewed and updated in chart. * Medications and Supplements: Review of all medications by a prescribing practitioner or clinical pharmacist (such as prescriptions, OTCs, herbal therapies and supplements) documented in the medical record. * No, the patient is not using opioids. * Tobacco use: Non-User * Alcohol use: Non-User * Illicit drug use: Non-User * Current diet: well balanced diet. * Exercise Frequency: infrequently. * Depression/Suicide Screening: Patient has a current diagnosis of depression. * Stable on citalopram * Hearing Impairment: none. * Cognitive Impairment: No cognitive impairment observed. * Bathing: performs independently. * Dressing: performs independently. * Walking: performs independently. * Managing Finances: performs independently. * Shopping: performs independently. * Managing Medications: performs independently. * Housework / Basic Home Maintenance: performs independently. * Falls Risk Screening:. KASSANDRA has not fallen in the last 6 months. * Home safety risk factors: none. * Additional Information: Full Code. * Here for Medicare wellness visit. Due for mammogram, colonoscopy, and pneumonia vaccine. * Also mentions chronic vaginal itching and recent work-up due to shortness of breath. * Was experiencing shortness of breath for the past few months. Undergoing workup with pulmonology. Does have birds. Possible pneumonitis. Was also recommended to follow up with cardiology. Planning moy Jamison. [facility] Work Phone: History of Present illness Narrative* The patient is being seen for the initial annual wellness visit. * Past Medical, Surgical and Family History: reviewed and updated in chart. * Medications and Supplements: Review of all medications by a prescribing practitioner or clinical pharmacist (such as prescriptions, OTCs, herbal therapies and supplements) documented in the medical record. * No, the patient is not using opioids. * Tobacco use: Non-User * Alcohol use: Non-User * Illicit drug use: Non-User * Current diet: well balanced diet. * Exercise Frequency: infrequently. * Depression/Suicide Screening: Patient has a current diagnosis of depression. * Stable on citalopram * Hearing Impairment: none. * Cognitive Impairment: No cognitive impairment observed. * Bathing: performs independently. * Dressing: performs independently. * Walking: performs independently. * Managing Finances: performs independently. * Shopping: performs independently. * Managing Medications: performs independently. * Housework / Basic Home Maintenance: performs independently. * Falls Risk Screening:. KASSANDRA has not fallen in the last 6 months. * Home safety risk factors: none. * Additional Information: Full Code. * Here for Medicare wellness visit. Due for mammogram, colonoscopy, and pneumonia vaccine. * Also mentions chronic vaginal itching and recent work-up due to shortness of breath. * Was experiencing shortness of breath for the past few months. Undergoing workup with pulmonology. Does have birds. Possible pneumonitis. Was also recommended to follow up with cardiology. Planning tosee Dr Jamison. [facility] Work Phone: History of Present illness Narrative* The patient is being seen for the initial annual wellness visit. * Past Medical, Surgical and Family History: reviewed and updated in chart. * Medications and Supplements: Review of all medications by a prescribing practitioner or clinical pharmacist (such as prescriptions, OTCs, herbal therapies and supplements) documented in the medical record. * No, the patient is not using opioids. * Tobacco use: Non-User * Alcohol use: Non-User * Illicit drug use: Non-User * Current diet: well balanced diet. * Exercise Frequency: infrequently. * Depression/Suicide Screening: Patient has a current diagnosis of depression. * Stable on citalopram * Hearing Impairment: none. * Cognitive Impairment: No cognitive impairment observed. * Bathing: performs independently. * Dressing: performs independently. * Walking: performs independently. * Managing Finances: performs independently. * Shopping: performs independently. * Managing Medications: performs independently. * Housework / Basic Home Maintenance: performs independently. * Falls Risk Screening:. KASSANDRA has not fallen in the last 6 months. * Home safety risk factors: none. * Additional Information: Full Code. * Here for Medicare wellness visit. Due for mammogram, colonoscopy, and pneumonia vaccine. * Also mentions chronic vaginal itching and recent work-up due to shortness of breath. * Was experiencing shortness of breath for the past few months. Undergoing workup with pulmonology. Does have birds. Possible pneumonitis. Was also recommended to follow up with cardiology. Planning moy Jamison. [facility] Work Phone: History of Present illness Narrative* The patient is being seen for the initial annual wellness visit. * Past Medical, Surgical and Family History: reviewed and updated in chart. * Medications and Supplements: Review of all medications by a prescribing practitioner or clinical pharmacist (such as prescriptions, OTCs, herbal therapies and supplements) documented in the medical record. * No, the patient is not using opioids. * Tobacco use: Non-User * Alcohol use: Non-User * Illicit drug use: Non-User * Current diet: well balanced diet. * Exercise Frequency: infrequently. * Depression/Suicide Screening: Patient has a current diagnosis of depression. * Stable on citalopram * Hearing Impairment: none. * Cognitive Impairment: No cognitive impairment observed. * Bathing: performs independently. * Dressing: performs independently. * Walking: performs independently. * Managing Finances: performs independently. * Shopping: performs independently. * Managing Medications: performs independently. * Housework / Basic Home Maintenance: performs independently. * Falls Risk Screening:. KASSANDRA has not fallen in the last 6 months. * Home safety risk factors: none. * Additional Information: Full Code. * Here for Medicare wellness visit. Due for mammogram, colonoscopy, and pneumonia vaccine. * Also mentions chronic vaginal itching and recent work-up due to shortness of breath. * Was experiencing shortness of breath for the past few months. Undergoing workup with pulmonology. Does have birds. Possible pneumonitis. Was also recommended to follow up with cardiology. Planning moy Jamison. [facility] Work Phone: History of Present illness Narrative* Luis is a 66 year old female who presents for vulvar pruritis for at least a year. * Referred by Dr. Hall * Has used witch bryan and monistat cream without much relief. If scratching a lot, will make labias bleed. Denies any vaginal bleeding or discharge. * h/o x1, has been leaking for years, mostly due to cough or sneeze. Wearing pads daily * Vaginal discharge: none, no odor * Itching: all outer skin * Dyspareunia: no, not SA * Fever/chills: no * Abdominal pain: no * Bladder: Negative for dysuria or frequency * Bowel: No blood in stool, pain with BM, tarry stool, persistent diarrhea or constipation * Any new sexual partners or concern for STD exposure: n/a * Any history of STDs: no * Does your partner have any new complaints: n/a * Are you currently taking any medications to treat vaginitis: see above * Do you use feminine sprays, douches or deodorants: no * Menopause: mid-50s, never HRT * Last pap: 7 years ago, normal, never abnormal [facility] Work Phone: History of Present illness Narrative* The patient is being seen for the initial annual wellness visit. * Past Medical, Surgical and Family History: reviewed and updated in chart. * Medications and Supplements: Review of all medications by a prescribing practitioner or clinical pharmacist (such as prescriptions, OTCs, herbal therapies and supplements) documented in the medical record. * No, the patient is not using opioids. * Tobacco use: Non-User * Alcohol use: Non-User * Illicit drug use: Non-User * Current diet: well balanced diet. * Exercise Frequency: infrequently. * Depression/Suicide Screening: Patient has a current diagnosis of depression. * Stable on citalopram * Hearing Impairment: none. * Cognitive Impairment: No cognitive impairment observed. * Bathing: performs independently. * Dressing: performs independently. * Walking: performs independently. * Managing Finances: performs independently. * Shopping: performs independently. * Managing Medications: performs independently. * Housework / Basic Home Maintenance: performs independently. * Falls Risk Screening:. KASSANDRA has not fallen in the last 6 months. * Home safety risk factors: none. * Additional Information: Full Code. * Here for Medicare wellness visit. Due for mammogram, colonoscopy, and pneumonia vaccine. * Also mentions chronic vaginal itching and recent work-up due to shortness of breath. * Was experiencing shortness of breath for the past few months. Undergoing workup with pulmonology. Does have birds. Possible pneumonitis. Was also recommended to follow up with cardiology. Planning tosee Dr Jamison. [facility] Work Phone: Hospital Discharge instructions* Attachments The following attachments cannot be sent through Care Everywhere. * Ankle Sprain ED (Mexican) * Preventing Falls ED (Mexican) [facility] Phone: Hospital Discharge instructions* Attachments The following attachments cannot be sent through Care Everywhere. * Blunt Chest Trauma Discharge Instructions (Mexican) * Oxygen Therapy Discharge Instructions, Adult (Mexican) [facility] Work Phone: Reason for referral (narrative)* Outpatient Procedure (Routine) - Pending Review Specialty Diagnoses / Procedures Referred By Contac t Referred To Contact [facility] Diagnoses Chronic obstructive pulmonary disease, unspecified COPD type (HCC) Procedures OXIMETRY WITH AMBULATION NONINVASIVE EAR/P[place]SE [place] [address] [place] [address] [place] [address] Referral ID Status Reason Start Date Expiration Date Visits Requested Visits Authorized [id number] Pending Review Auto-Generat ed Referral 05/26/2021 06/25/2022 1 1 T [facility] for referral (narrative)* Outpatient Procedure (Routine) - Pending Review Specialty Diagnoses / Procedures Referred By Contac t Referred To Contact [facility] Diagnoses Dyspnea, unspecified type Procedures SPIROMETRY - BASELINE AND POST DILATOR BRNCDILAT RSPSE SPMTRY PRE&[place] [address] [place], [place] [id number] Respiratory [place] [address] [address] Referral ID Status Reason Start Date Expiration Date Visits Requested Visits Authorized [id number] Pending Review Auto-Generat ed Referral 06/03/2021 07/03/2022 1 1 [facility] for referral (narrative)* Outpatient Procedure (Routine) - Pending Review Specialty Diagnoses / Procedures Referred By Wilbur t Referred To Contact [facility] Diagnoses SOB (shortness of breath) Procedures ECG COMPLETE ECG ROUTINE ECG W/LEAST 12 LDS W/[place] [address] [address] [place] [address] [address] Referral ID Status Reason Start Date Expiration Date Visits Requested Visits Authorized [id number] Pending Review Auto-Generat ed Referral 06/21/2021 06/21/2022 1 1 * Outpatient Procedure (Routine) - Closed Specialty Diagnoses / Procedures Referred By Wilbur t Referred To Contact [facility] Diagnoses SOB (shortness of breath) Procedures ECG COMPLETE ECG ROUTINE ECG W/LEAST 12 LDS W/I&[place] [address] [address] [place] [address] [address] Referral ID Status Reason Start Date Expiration Date V isits Requested Visits Authorized [id number] Closed Auto-Generate d Referral 06/21/2021 06/21/2022 1 1 [facility] for referral (narrative)* Outpatient Procedure (Routine) - Authorized Specialty Diagnoses / Procedures [facility] Diagnoses Asthma with chronic obstructive pulmonary disease (COPD) (HCC) Procedures NITRIC OXIDE, EXHALED NITRIC OXIDE GAS DETERMINATION Kayode Mckeon MD [address] [place] [address] [address] [place] [address] [place], [place] [id number] Referral ID Status Reason Start Date Expiration Date Visits Requested Visits Authorized [id number] Authorized Auto-Generat ed Referral 07/19/2021 08/18/2022 1 1 * Outpatient Procedure (Routine) - Authorized Specialty Diagnoses / Procedures Referred By Contac t Referred To Contact [facility] Diagnoses Asthma with chronic obstructive pulmonary disease (COPD) (HCC) Procedures SPIROMETRY BASELINE ONLY SPMTRY W/VC EXPIRATORY EARNESTINE W/WO MXML VOL Kayode Dos Santos MD [address] [place] [address] [place] [address] Referral ID Status Reason Start Date Expiration Date Visits Requested Visits Authorized [id number] Authorized Auto-Generat ed Referral 07/19/2021 08/18/2022 1 1 * MRI/CT (Routine) - Authorized Specialty Diagnoses / Procedures Referred By Contac t Referred To Contact CT IMAGING Diagnoses Interstitial pulmonary disease (HCC) Procedures CT CHEST WO IVCON DIAGNOSTIC COMPUTED TOMOGRAPHY THORAX W/O CNTRST Kayode Mckeon MD [address] [place] [address] Ct Imaging Referral ID Status Reason Start Date Expiration Date Visits Requested Visits Authorized [id number] Authorized Auto-Generat ed Referral 07/19/2021 08/18/2022 1 1 [facility] for referral (narrative)* Outpatient Procedure (Routine) - Authorized Specialty Diagnoses / Procedures Referred By Contac t Referred To Contact [facility] Diagnoses Hypersensitivity pneumonitis (HCC) Procedures SPIROMETRY BASELINE ONLY SPMTRY W/VC EXPIRATORY EARNESTINE W/WO MXML VOL Kayode Dos Santos MD [address] [place] [address] [place] [address] [address] Referral ID Status Reason Start Date Expiration Date Visits Requested Visits Authorized [id number] Authorized Auto-Generat ed Referral 10/22/2021 11/21/2022 1 1 * Outpatient Procedure (Routine) - Authorized Specialty Diagnoses / Procedures Referred By Contac t Referred To Contact [facility] Diagnoses Hypersensitivity pneumonitis (HCC) Procedures LUNG DIFFUSION CAPACITY (DLCO) [place] [address] [place] [address] [address] [place] [address] [place] [address] Referral ID Status Reason Start Date Expiration Date Visits Requested Visits Authorized [id number] Authorized Auto-Generat ed Referral 10/22/2021 11/21/2022 1 1 [facility] for referral (narrative)* Outpatient Procedure (Routine) - Authorized Specialty Diagnoses / Procedures Referred By Contac t Referred To Contact [facility] Diagnoses Hypersensitivity pneumonia (HCC) Procedures LUNG DIFFUSION CAPACITY (DLCO) [place] [address] [place], [place] [phone] [place] [address] Referral ID Status Reason Start Date Expiration Date Visits Requested Visits Authorized [id number] Authorized Auto-Generat ed Referral 3 12/25/2023 1 1 * MRI/CT (Routine) - Authorized Specialty Diagnoses / Procedures Referred By Contac t Referred To Contact CT IMAGING Diagnoses Uncomplicated asthma, unspecified asthma severity, unspecified whether persistent Hypersensitivity pneumonia (HCC) Interstitial pulmonary disease (HCC) Procedures CT CHEST WO IVCON DIAGNOSTIC COMPUTED TOMOGRAPHY THORAX W/O CNTRST Kayode Mckeon MD [address] [place] [address] [address] [address] [facility] Referral ID Status Reason Start Date Expiration Date Visits Requested Visits Authorized [id number] Authorized Auto-Generat ed Referral 3 12/25/2023 1 1 * Outpatient Procedure (Routine) - Authorized Specialty Diagnoses / Procedures Referred By Contac t Referred To Contact [facility] Diagnoses Uncomplicated asthma, unspecified asthma severity, unspecified whether persistent Hypersensitivity pneumonia (HCC) Interstitial pulmonary disease (HCC) Procedures SPIROMETRY - BASELINE AND POST DILATOR BRNCDILAT RSPSE SPMTRY PRE&POST-BRNCDILAT Kayode Khan MD [address] [place] [address] [address] [place] [address] [place] [address] Referral ID Status Reason Start Date Expiration Date Visits Requested Visits Authorized [id number] Authorized Auto-Generat ed Referral 12/25/2023 1 1 [facility] for referral (narrative)* Consultation (Routine) - Pending Review Specialty Diagnoses / Procedures Referred By Contac t Referred To Contact Physical Therapy Diagnoses Strain of right hamstring, initial encounter [employer], 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, 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 [address] [facility] [address] [place] [address] Referral ID Status Reason Start Date Expiration Date Visits Requested Visits Authorized [id number] Pending Review Specialty Services Required 02/27/2023 02/27/2024 1 1 [facility] Work Phone: [facility] for referral (narrative)* Outpatient Procedure (Routine) - Authorized Specialty Diagnoses / Procedures Referred By Contac t Referred To Contact [facility] Diagnoses Hypersensitivity pneumonia (HCC) Procedures LUNG DIFFUSION CAPACITY (DLCO) DIFFUSING CAPACITY Ivan Talavera PA-C [address] [place] [address] Respiratory [place] [address] [place] [address] Referral ID Status Reason Start Date Expiration Date Visits Requested Visits Authorized [id number] Authorized Auto-Generat ed Referral 06/16/2023 07/15/2024 1 1 * Outpatient Procedure (Routine) - Authorized Specialty Diagnoses / Procedures Referred By Contac t Referred To [facility] Diagnoses Hypersensitivity pneumonia (HCC) Procedures SPIROMETRY BASELINE ONLY SPMTRY W/VC EXPIRATORY EARNESTINE W/WO MXML VOL VNTJ Ivan Talavera PA-C [address] [place] [address] [address] Referral ID Status Reason Start Date Expiration Date Visits Requested Visits Authorized [id number] Authorized Auto-Generat ed Referral 06/16/2023 07/15/2024 1 1 [facility] for referral (narrative)* Outpatient Procedure (Routine) - Authorized Specialty Diagnoses / Procedures Referred By Contac t Referred To [facility] Diagnoses Hypersensitivity pneumonia (HCC) Procedures LUNG DIFFUSION CAPACITY (DLCO) DIFFUSING CAPACITY Ivan Talavera PA-C [address] [place] [address] [address] Referral ID Status Reason Start Date Expiration Date Visits Requested Visits Authorized [id number] Authorized Auto-Generat ed Referral 07/20/2023 08/18/2024 1 1 * Outpatient Procedure (Routine) - Authorized Specialty Diagnoses / Procedures Referred By Contac t Referred To [facility] Diagnoses Hypersensitivity pneumonia (HCC) Procedures SPIROMETRY BASELINE ONLY SPMTRY W/VC EXPIRATORY EARNESTINE W/WO MXML VOL VNTJ Ivan Talavera PA-C [address] [place] [address] [address] Referral ID Status Reason Start Date Expiration Date Visits Requested Visits Authorized [id number] Authorized Auto-Generat ed Referral 07/20/2023 08/18/2024 1 1 [facility] for referral (narrative)* Outpatient Procedure (Routine) - Authorized Specialty Diagnoses / Procedures Referred By Contac t Referred To [facility] Diagnoses Hypersensitivity pneumonitis (HCC) Procedures SPIROMETRY BASELINE ONLY SPMTRY W/VC EXPIRATORY EARNESTINE W/WO MXML VOL VNTJ Kayode Mckeon MD [address] [place] [address] [place] [address] Referral ID Status Reason Start Date Expiration Date Visits Requested Visits Authorized [id number] Authorized Auto-Generat ed Referral 10/23/2023 11/21/2024 1 1 * Outpatient Procedure (Routine) - Authorized Specialty Diagnoses / Procedures Referred By Contac t Referred To [facility] Diagnoses Hypersensitivity pneumonitis (HCC) Procedures LUNG DIFFUSION CAPACITY (DLCO) DIFFUSING CAPACITY Kayode Mckeon MD [address] [place] [address] [place] [address] Referral ID Status Reason Start Date Expiration Date Visits Requested Visits Authorized [id number] Authorized Auto-Generat ed Referral 10/23/2023 11/21/2024 1 1 [facility] for referral (narrative)* Outpatient Procedure (Routine) - Closed Specialty Diagnoses / Procedures Referred By Contac t Referred To [facility] Diagnoses Closed fracture of multiple ribs of right side with routine healing, subsequent encounter Hypoxia Procedures OXIMETRY WITH AMBULATION NONINVASIVE EAR/PULSE OXIMETRY Ivan Vaughn PA-C [address] [place] [phone] [place] [id number] Referral ID Status Reason Start Date Expiration Date V isits Requested Visits Authorized [id number] Closed Auto-Generate d Referral 01/08/2024 02/06/2025 1 1 [facility] for referral (narrative)* Outpatient Procedure (Routine) - Authorized Specialty Diagnoses / Procedures Referred By Wilbur t Referred To Contact [facility] Diagnoses Hypoxia Procedures OXIMETRY WITH AMBULATION NONINVASIVE EAR/PULSE OXIMETRY Ivan Vaughn PA-C [address] [place] [phone] [place] [address] Referral ID Status Reason Start Date Expiration Date Visits Requested Visits Authorized [id number] Authorized Auto-Generat ed Referral 02/06/2025 1 1 [facility] for referral (narrative)No reason for referral information [facility] Work Phone: [facility] for visit Narrative* Outpatient Procedure (Routine) - Closed Specialty Diagnoses / Procedures Referred By Contbrian t Referred To Contact [facility] Diagnoses Dyspnea, unspecified type Procedures SPIROMETRY - BASELINE AND POST DILATOR BRNCDILAT RSPSE SPMTRY PRE&POST-BRNCDILAT Kayode Khan MD [address] [place] [address] [place] [address] Referral ID Status Reason Start Date Expiration Date V isits Requested Visits Authorized [id number] Closed Auto-Generate d Referral 04/16/2021 05/16/2022 1 1 [facility] for visit Narrative* Imaging (Routine) - Authorized Specialty Diagnoses / Procedures Referred By Contac t Referred To Contact Radiology Diagnoses Breast cancer screening by mammogram Procedures BI mammo bilateral screening tomosynthesis Bright Escobedo DO [address] [facility] [place] [address] Phone: tel: fax: Referral ID Status Reason Start Date Expiration Date Visits Requested Visits Authorized [id number] Authorized Perform Procedure 05/31/2024 05/31/2025 1 1 [facility] Work Phone: Reason for visit Narrative* Imaging (Routine) - Authorized Specialty Diagnoses / Procedures Referred By Wilbur thakur Referred To Contact Radiology Diagnoses Acute pain of right shoulder Procedures MR shoulder right wo IV contrast Jackie Debra Alicia, 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 [address] [facility], [facility] [address], [address] [address] Phone: tel: fax: Referral ID Status Reason Start Date Expiration Date Visits Requested Visits Authorized [id number] Authorized Perform Procedure 06/10/2024 06/10/2025 1 1 [facility] Work Phone: Reason for visit Narrative* Auth/Cert Specialty Diagnoses / Procedures Referred By Wilbur thakur Referred To Contact Diagnoses Rotator cuff strain, right, initial encounter Rotator cuff strain, right, initial encounter [S46.011A] Procedures DC SURGICAL ARTHROSCOPY SHOULDER W/ROTATOR CUFF RPR DC SURGICAL ARTHROSCOPY SHOULDER XTNSV DBRDMT 3+ DC SURGICAL ARTHROSCOPY HARPREET W/CORACOACRM LIGM RLS RIGHT SHOULDER ARTHROSCOPIC ROTATOR CUFF REPAIR SUBACROMIAL DECOMPRESSION DEBRIDEMENT Jordan Maher MD [address] [facility], [facility] [address], [address] [address] Phone: tel: fax: [facility] [place] [address] [place] [address] Referral ID Status Reason Start Date Expiration Date Visits Re quested Visits Authorized [id number] 1 1 [facility] Work Phone: Summary Purpose Family History No Family History Records FoundUnknown Family Member Name Dates Details Diabetes type 2, controlled: Mother Status:Active Family history of congestive heart failure: Mother(V17.49, Z82.49) Status:Active Family history of malignant neoplasm of breast: Aunt(V16.3, Z80.3) Status:Active Family history of hypertensi on: Mother(V17.49, Z82.49) Status:Active Unknown Family Member Name Dates Details Diabetes type 2, controlled: Mother Status:Active Family history of congestive heart failure: Mother(V17.49, Z82.49) Status:Active Family history of malignant neoplasm of breast: Aunt(V16.3, Z80.3) Status:Active Family history of hypertensi on: Mother(V17.49, Z82.49) Status:Active Unknown Family Member Name Dates Details Diabetes type 2, controlled: Mother Status:Active Family history of congestive heart failure: Mother(V17.49, Z82.49) Status:Active Family history of malignant neoplasm of breast: Aunt(V16.3, Z80.3) Status:Active Family history of hypertensi on: Mother(V17.49, Z82.49) Status:Active Unknown Family Member Name Dates Details Diabetes type 2, controlled: Mother Status:Active Family history of congestive heart failure: Mother(V17.49, Z82.49) Status:Active Family history of malignant neoplasm of breast: Aunt(V16.3, Z80.3) Status:Active Family history of hypertensi on: Mother(V17.49, Z82.49) Status:Active Unknown Family Member Name Dates Details Diabetes type 2, controlled: Mother Status:Active Family history of congestive heart failure: Mother(V17.49, Z82.49) Status:Active Family history of malignant neoplasm of breast: Aunt(V16.3, Z80.3) Status:Active Family history of hypertensi on: Mother(V17.49, Z82.49) Status:Active Unknown Family Member Name Dates Details Diabetes type 2, controlled: Mother Status:Active Family history of congestive heart failure: Mother(V17.49, Z82.49) Status:Active Family history of malignant neoplasm of breast: Aunt(V16.3, Z80.3) Status:Active Family history of hypertensi on: Mother(V17.49, Z82.49) Status:Active Unknown Family Member Name Dates Details Diabetes type 2, controlled: Mother Status:Active Family history of congestive heart failure: Mother(V17.49, Z82.49) Status:Active Family history of malignant neoplasm of breast: Aunt(V16.3, Z80.3) Status:Active Family history of hypertensi on: Mother(V17.49, Z82.49) Status:Active Unknown Family Member Name Dates Details Diabetes type 2, controlled: Mother Status:Active Family history of congestive heart failure: Mother(V17.49, Z82.49) Status:Active Family history of malignant neoplasm of breast: Aunt(V16.3, Z80.3) Status:Active Family history of hypertensi on: Mother(V17.49, Z82.49) Status:Active Unknown Family Member Name Dates Details Diabetes type 2, controlled: Mother Status:Active Family history of congestive heart failure: Mother(V17.49, Z82.49) Status:Active Family history of malignant neoplasm of breast: Aunt(V16.3, Z80.3) Status:Active Family history of hypertensi on: Mother(V17.49, Z82.49) Status:Active Unknown Family Member Name Dates Details Diabetes type 2, controlled: Mother Status:Active Family history of congestive heart failure: Mother(V17.49, Z82.49) Status:Active Family history of malignant neoplasm of breast: Aunt(V16.3, Z80.3) Status:Active Family history of hypertensi on: Mother(V17.49, Z82.49) Status:Active Unknown Family Member Name Dates Details Diabetes type 2, controlled: Mother Status:Active Family history of malignant neoplasm of breast: Aunt(V16.3, Z80.3) Status:Active Family history of hypertensi on: Mother(V17.49, Z82.49) Status:Active Family history of congestive heart failure: Mother(V17.49, Z82.49) Comments:Mom CHF 70's; Status:Active Unknown Family Member Name Dates Details Diabetes type 2, controlled: Mother Status:Active Family history of malignant neoplasm of breast: Aunt(V16.3, Z80.3) Status:Active Family history of hypertensi on: Mother(V17.49, Z82.49) Status:Active Family history of congestive heart failure: Mother(V17.49, Z82.49) Comments:Mom CHF 70's; Status:Active Unknown Family Member Name Dates Details Diabetes type 2, controlled: Mother Status:Active Family history of malignant neoplasm of breast: Aunt(V16.3, Z80.3) Status:Active Family history of congestive heart failure: Mother(V17.49, Z82.49) Comments:Mom CHF 70's; Status:Active Family history of hypertensi on: Mother(V17.49, Z82.49) Status:Active Unknown Family Member Name Dates Details Diabetes type 2, controlled: Mother Status:Active Family history of malignant neoplasm of breast: Aunt(V16.3, Z80.3) Status:Active Family history of hypertensi on: Mother(V17.49, Z82.49) Status:Active Family history of congestive heart failure: Mother(V17.49, Z82.49) Comments:Mom CHF 70's; Status:Active Unknown Family Member Name Dates Details Diabetes type 2, controlled: Mother Status:Active Family history of malignant neoplasm of breast: Aunt(V16.3, Z80.3) Status:Active Family history of congestive heart failure: Mother(V17.49, Z82.49) Comments:Mom CHF 70's; Status:Active Family history of hypertensi on: Mother(V17.49, Z82.49) Status:Active Unknown Family Member Name Dates Details Diabetes type 2, controlled: Mother Status:Active Family history of malignant neoplasm of breast: Aunt(V16.3, Z80.3) Status:Active Family history of hypertensi on: Mother(V17.49, Z82.49) Status:Active Family history of congestive heart failure: Mother(V17.49, Z82.49) Comments:Mom CHF 70's; Status:Active Relationship Condition Age at Onset Recorded Date/T roslyn Not Specified Diabetes mellitus Unknown Cardiac disease Unknown Malignant neoplasm of breast Unknown Advance Directives No Advanced Directives Records Found Date Activated Date Inactivated Comments 08/14/2024 6:31 PM Question Answer Comments Plan of Care: Code Status Discussion Completed Decision Maker: Patient Date Activated Date Inactivated Comments 01/02/2024 11:32 PM 08/14/2024 6:31 PM Question Answer Comments Plan of Care: Code Status Discussion Completed Decision Maker: Patient Healthcare Agents on File Name Relationship Healthcare Agent Relationship Communication Serina Hughes Sibling Health Care Agent [email or web address] Documents on File Type Date Recorded 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 Advance Directive(s) 05/26/2021 9:29 AM Documents on File Type Date Recorded 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 Advance Directive(s) 05/26/2021 9:29 AM Latest Code Status on File Code Status Date Activated Date Inactivated Comments DNR-CCA, DNI 03/14/2023 11:00 PM 03/17/2023 8:30 PM Question Answer Comments DNR Order Discussed With: Patient Code Status History Code Status Date Activated Date Inactivated Comments DNR-CCA 03/14/2023 11:00 PM 03/14/2023 11:00 PM Question Answer Comments DNR Order Discussed With: Patient Date Activated Date Inactivated Comments 03/14/2023 11:00 PM 03/17/2023 8:30 PM Question Answer Comments DNR Order Discussed With: Patient Date Activated Date Inactivated Comments 03/14/2023 11:00 PM 03/14/2023 11:00 PM Question Answer Comments DNR Order Discussed With: Patient Date Activated Date Inactivated Comments 03/14/2023 11:00 PM 03/17/2023 8:30 PM Question Answer Comments DNR Order Discussed With: Patient Date Activated Date Inactivated Comments 03/14/2023 11:00 PM 03/14/2023 11:00 PM Question Answer Comments DNR Order Discussed With: Patient Date Activated Date Inactivated Comments 01/02/2024 11:32 PM Question Answer Comments Plan of Care: Code Status Discussion Completed Decision Maker: Patient Healthcare Agents on File Name Relationship Healthcare Agent Relationship Communication Serina Hughes Sibling Health Care Agent [email or web address] Date Activated Date Inactivated Comments 01/02/2024 11:32 PM Healthcare Agents on File Name Relationship Healthcare Agent Relationship Communication Serina Hughes Sibling Health Care Agent [email or web address] Agents on File Name Relationship Healthcare Agent Relationship Communication Serina Hughes Sibling Health Care Agent [email or web address] Agents on File Name Relationship Healthcare Agent Relationship Communication Serina Hughes Sibling Health Care Agent [email or web address] Agents on File Name Relationship Healthcare Agent Relationship Communication Serina Hughes Sibling Health Care Agent [phone] (Mobile)[email or web address] Agents on File Name Relationship Healthcare Agent Relationship Communication Serina Hughes Sibling Health Care Agent [phone] (Mobile)[email or web address] Agents on File Name Relationship Healthcare Agent Relationship Communication Serina Hughes Sibling Health Care Agent [phone] (Mobile) [email or web address] Healthcare Agents on File Name Relationship Healthcare Agent Relationship Communication Serina Hughes Sibling Health Care Agent [phone] (Mobile) [email or web address] Healthcare Agents on File Name Relationship Healthcare Agent Relationship Communication Serina Hughes Sibling Health Care Agent [phone] (Mobile) [email or web address] Healthcare Agents on File Name Relationship Healthcare Agent Relationship Communication Serina Hughes Sibling Health Care Agent [phone] (Mobile) [email or web address] Healthcare Agents on File Name Relationship Healthcare Agent Relationship Communication Serina Hughes Sibling Health Care Agent [phone] (Mobile) [email or web address] Healthcare Agents on File Name Relationship Healthcare Agent Relationship Communication Serina Hughes Sibling Health Care Agent [phone] (Mobile) [email or web address] Date Activated Date Inactivated Comments 08/14/2024 6:31 PM Date Activated Date Inactivated Comments 01/02/2024 11:32 PM 08/14/2024 6:31 PM Question Answer Comments Plan of Care: Code Status Discussion Completed Decision Maker: Patient Healthcare Agents on File Name Relationship Healthcare Agent Relationship Communication Serina Hughes Sibling Health Care Agent [email or web address] Advance Directive Response Recorded Date/ Time Living Will No May 30, 2024 2:00pm Do you have a Healthcare Power of Emu Farmer? No May 30, 2024 2:00pm Chief Complaint Chief Complaint: KASSANDRA SMITH is here with a chief complaint of Hemorrhoids. Hemorrhoids and medrefills.Medicare annual wellness examMedicare annual wellness exam* New patient here for c/o chronic external vaginal itching for about 1 year--when she scratches it, it bleeds and is very sensitive * -1 c/s * last [facility]-09/07/21-rt cat 3 * declined hand molder meat Medicare annual wellness examMedicare annual wellness examMedicare annual wellness examMedicare annual wellness exam* New patient here for c/o chronic external vaginal itching for about 1 year--when she scratches it, it bleeds and is very sensitive * -1 c/s * last [facility]-09/07/21-rt cat 3 * declined hand m[employer] Medicare annual wellness exam Reason for Referral Specialty Diagnoses / Procedures Referred By Wilbur thakur Referred To Contact Radiology Diagnoses Breast asymmetry Procedures BI US breast limited right Naty Hall, [address] [place] [address] Referral ID Status Reason Start Date Expiration Date Visits Requested Visits Authorized [id number] Authorized Perform Procedure 10/11/2022 04/09/2023 1 1 Specialty Diagnoses / Procedures Referred By Wilbur t Referred To Contact Radiology Diagnoses Screening for osteoporosis Osteopenia of multiple sites Procedures XR DEXA bone density Naty Hall, [address] [place] [address] Referral ID Status Reason Start Date Expiration Date Visits Requested Visits Authorized [id number] Authorized Perform Procedure 10/11/2022 04/09/2023 1 1 Specialty Diagnoses / Procedures Referred By Homeroac t Referred To Contact Radiology Diagnoses Breast cancer screening by mammogram Procedures BI mammo bilateral screening tomosynthesis Naty Hall, DO [address] [phone] Referral ID Status Reason Start Date Expiration Date Visits Requested Visits Authorized [id number] Authorized Perform Procedure 10/11/2022 04/09/2023 1 1 Specialty Diagnoses / Procedures Referred By Homeroac t Referred To Contact Gastroenterology Diagnoses Encounter for screening for malignant neoplasm of colon Procedures Colonoscopy Screening Naty Hall Everardo, DO [address] [place] [address] Referral ID Status Reason Start Date Expiration Date V isits Requested Visits Authorized [id number] Authorized 10/11/2022 04/09/2023 1 1 Specialty Diagnoses / Procedures Referred By Homeroac t Referred To Contact CT IMAGING Diagnoses Uncomplicated asthma, unspecified asthma severity, unspecified whether persistent Hypersensitivity pneumonia (HCC) Interstitial pulmonary disease (HCC) Procedures CT CHEST WO IVCON DIAGNOSTIC COMPUTED TOMOGRAPHY THORAX W/[place] [address] [place] [address] Ct [facility] [place] [address] Referral ID Status Reason Start Date Expiration Date V isits Requested Visits Authorized [id number] Closed Auto-Generate d Referral 11/25/2022 12/25/2023 1 1 Specialty Diagnoses / Procedures Referred By Homeroac t Referred To Contact CT IMAGING Diagnoses Interstitial pulmonary disease (HCC) Procedures CT CHEST WO IVCON DIAGNOSTIC COMPUTED TOMOGRAPHY THORAX W/[place] [address] [place], [place] [id number] Ct Imaging [id number] Referral ID Status Reason Start Date Expiration Date V isits Requested Visits Authorized [id number] Closed Auto-Generate d Referral 07/19/2021 08/18/2022 1 1 Specialty Diagnoses / Procedures Referred By Contac t Referred To Contact Gastroenterology Diagnoses Colon cancer screening Procedures Colonoscopy Screening; Average Risk Patient DC COLONOSCOPY FLX DX W/COLLJ SPEC WHEN PFRMD DC COLON CA SCRN NOT HI RSK IND DC COLORECTAL SCRN; HI RISK IND DC COLONOSCOPY W/BIOPSY SINGLE/MULTIPLE DC COLSC FLX W/RMVL OF TUMOR POLYP LESION SNARE TQ DC COLSC FLX W/REMOVAL LESION BY HOT BX FORCEPS Bright Escobedo, DO [address] [facility] [address] [place] [address] Referral ID Status Reason Start Date Expiration Date V isits Requested Visits Authorized [id number] Authorized 09/06/2023 09/05/2024 1 1 Chief Complaint and Reason for Visit Chief Complaint Admit Date Cysto, Injection Bulkamid June 13, 2024 7:48am PRE OP URINE C&S SIGN CONSENT September 10:04am Reason for Visit Admit Date 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 13, 2024 7:48am SHAQ (stress urinary incontinence, female ) June 13, 2024 7:48am Constipation September 20, 2024 10: 04am Intrinsic sphincter deficiency September 10:04am Overactive bladder September 20, 2024 10: 04am SHAQ (stress urinary incontinence, female ) September 20, 2024 10:04am Vaginal atrophy September 20, 2024 10: 04am Additional Source Comments INFORMATION SOURCE (unrecogn ized section and content) DATE CREATED AUTHOR 08/09/2017 [facility] DATE CREATED AUTHOR AUTHOR'S ORGANIZ ATION 05/29/2021 [facility] DATE CREATED AUTHOR AUTHOR'S ORGANIZ ATION 09/11/2021 [facility] DATE CREATED AUTHOR AUTHOR'S ORGANIZ ATION 11/13/2021 [facility]formerly [employer] DATE CREATED AUTHOR AUTHOR'S ORGANIZ ATION 01/09/2024 [facility] DATE CREATED AUTHOR AUTHOR'S ORGANIZ ATION 06/02/2024 [facility] DATE CREATED AUTHOR AUTHOR'S ORGANIZ ATION 06/25/2024 [facility] DATE CREATED AUTHOR AUTHOR'S ORGANIZ ATION 08/22/2024 [facility] DATE CREATED AUTHOR AUTHOR'S ORGANIZ ATION 09/13/2024 [facility] DATE CREATED AUTHOR AUTHOR'S ORGANIZ ATION 09/25/2024 [facility] DATE CREATED AUTHOR AUTHOR'S ORGANIZ ATION 09/26/2024 [facility] Source Comments (unrecognize d section and content) In the event this informatio n is protected by the Federal Confidentiality of Alcohol and Drug Abuse Patient Records regulations: The Federal rules restrict any use of the information to criminally investigate or prosecute any alcohol or drug abuse patient.[facility] Center[facility] the event this information is protected by the Federal Confidentiality of Alcohol and Drug Abuse Patient Records regulations: The Federal rules restrict any use of the information to criminally investigate or prosecute any alcohol or drug abuse patient.[facility] CenterIn the event this information is protected by the Federal Confidentiality of Alcohol and Drug Abuse Patient Records regulations: The Federal rules restrict any use of the information to criminally investigate or prosecute any alcohol or drug abuse patient.[facility] CenterIn the event this information is protected by the Federal Confidentiality of Alcohol and Drug Abuse Patient Records regulations: The Federal rules restrict any use of the information to criminally investigate or prosecute any alcohol or drug abuse patient.[facility] CenterIn the event this information is protected by the Federal Confidentiality of Alcohol and Drug Abuse Patient Records regulations: The Federal rules restrict any use of the information to criminally investigate or prosecute any alcohol or drug abuse patient.[facility] CenterIn the event this information is protected by the Federal Confidentiality of Alcohol and Drug Abuse Patient Records regulations: The Federal rules restrict any use of the information to criminally investigate or prosecute any alcohol or drug abuse patient.[facility] CenterIn the event this information is protected by the Federal Confidentiality of Alcohol and Drug Abuse Patient Records regulations: The Federal rules restrict any use of the information to criminally investigate or prosecute any alcohol or drug abuse patient.[facility] CenterIn the event this information is protected by the Federal Confidentiality of Alcohol and Drug Abuse Patient Records regulations: The Federal rules restrict any use of the information to criminally investigate or prosecute any alcohol or drug abuse patient.[facility] CenterIn the event this information is protected by the Federal Confidentiality of Alcohol and Drug Abuse Patient Records regulations: The Federal rules restrict any use of the information to criminally investigate or prosecute any alcohol or drug abuse patient.[facility] CenterIn the event this information is protected by the Federal Confidentiality of Alcohol and Drug Abuse Patient Records regulations: The Federal rules restrict any use of the information to criminally investigate or prosecute any alcohol or drug abuse patient.[facility] CenterIn the event this information is protected by the Federal Confidentiality of Alcohol and Drug Abuse Patient Records regulations: The Federal rules restrict any use of the information to criminally investigate or prosecute any alcohol or drug abuse patient.[facility] CenterIn the event this information is protected by the Federal Confidentiality of Alcohol and Drug Abuse Patient Records regulations: The Federal rules restrict any use of the information to criminally investigate or prosecute any alcohol or drug abuse patient.[facility] CenterIn the event this information is protected by the Federal Confidentiality of Alcohol and Drug Abuse Patient Records regulations: The Federal rules restrict any use of the information to criminally investigate or prosecute any alcohol or drug abuse patient.[facility] CenterIn the event this information is protected by the Federal Confidentiality of Alcohol and Drug Abuse Patient Records regulations: The Federal rules restrict any use of the information to criminally investigate or prosecute any alcohol or drug abuse patient.[facility] CenterIn the event this information is protected by the Federal Confidentiality of Alcohol and Drug Abuse Patient Records regulations: The Federal rules restrict any use of the information to criminally investigate or prosecute any alcohol or drug abuse patient.[facility] CenterIn the event this information is protected by the Federal Confidentiality of Alcohol and Drug Abuse Patient Records regulations: The Federal rules restrict any use of the information to criminally investigate or prosecute any alcohol or drug abuse patient.[facility] CenterIn the event this information is protected by the Federal Confidentiality of Alcohol and Drug Abuse Patient Records regulations: The Federal rules restrict any use of the information to criminally investigate or prosecute any alcohol or drug abuse patient.[facility] CenterIn the event this information is protected by the Federal Confidentiality of Alcohol and Drug Abuse Patient Records regulations: The Federal rules restrict any use of the information to criminally investigate or prosecute any alcohol or drug abuse patient.[facility] CenterIn the event this information is protected by the Federal Confidentiality of Alcohol and Drug Abuse Patient Records regulations: The Federal rules restrict any use of the information to criminally investigate or prosecute any alcohol or drug abuse patient.[facility] CenterIn the event this information is protected by the Federal Confidentiality of Alcohol and Drug Abuse Patient Records regulations: The Federal rules restrict any use of the information to criminally investigate or prosecute any alcohol or drug abuse patient.[facility] CenterIn the event this information is protected by the Federal Confidentiality of Alcohol and Drug Abuse Patient Records regulations: The Federal rules restrict any use of the information to criminally investigate or prosecute any alcohol or drug abuse patient.[facility] CenterIn the event this information is protected by the Federal Confidentiality of Alcohol and Drug Abuse Patient Records regulations: The Federal rules restrict any use of the information to criminally investigate or prosecute any alcohol or drug abuse patient.[facility] CenterIn the event this information is protected by the Federal Confidentiality of Alcohol and Drug Abuse Patient Records regulations: The Federal rules restrict any use of the information to criminally investigate or prosecute any alcohol or drug abuse patient.[facility] CenterIn the event this information is protected by the Federal Confidentiality of Alcohol and Drug Abuse Patient Records regulations: The Federal rules restrict any use of the information to criminally investigate or prosecute any alcohol or drug abuse patient.[facility] CenterIn the event this information is protected by the Federal Confidentiality of Alcohol and Drug Abuse Patient Records regulations: The Federal rules restrict any use of the information to criminally investigate or prosecute any alcohol or drug abuse patient.[facility] CenterIn the event this information is protected by the Federal Confidentiality of Alcohol and Drug Abuse Patient Records regulations: The Federal rules restrict any use of the information to criminally investigate or prosecute any alcohol or drug abuse patient.[facility] CenterIn the event this information is protected by the Federal Confidentiality of Alcohol and Drug Abuse Patient Records regulations: The Federal rules restrict any use of the information to criminally investigate or prosecute any alcohol or drug abuse patient.[facility] CenterIn the event this information is protected by the Federal Confidentiality of Alcohol and Drug Abuse Patient Records regulations: The Federal rules restrict any use of the information to criminally investigate or prosecute any alcohol or drug abuse patient.[facility] CenterIn the event this information is protected by the Federal Confidentiality of Alcohol and Drug Abuse Patient Records regulations: The Federal rules restrict any use of the information to criminally investigate or prosecute any alcohol or drug abuse patient.[facility] Medical CenterIn the event this information is protected by the Federal Confidentiality of Alcohol and Drug Abuse Patient Records regulations: The Federal rules restrict any use of the information to criminally investigate or prosecute any alcohol or drug abuse patient.[facility] CenterIn the event this information is protected by the Federal Confidentiality of Alcohol and Drug Abuse Patient Records regulations: The Federal rules restrict any use of the information to criminally investigate or prosecute any alcohol or drug abuse patient.[facility] CenterIn the event this information is protected by the Federal Confidentiality of Alcohol and Drug Abuse Patient Records regulations: The Federal rules restrict any use of the information to criminally investigate or prosecute any alcohol or drug abuse patient.[facility] CenterIn the event this information is protected by the Federal Confidentiality of Alcohol and Drug Abuse Patient Records regulations: The Federal rules restrict any use of the information to criminally investigate or prosecute any alcohol or drug abuse patient.[facility] CenterIn the event this information is protected by the Federal Confidentiality of Alcohol and Drug Abuse Patient Records regulations: The Federal rules restrict any use of the information to criminally investigate or prosecute any alcohol or drug abuse patient.[facility] CenterIn the event this information is protected by the Federal Confidentiality of Alcohol and Drug Abuse Patient Records regulations: The Federal rules restrict any use of the information to criminally investigate or prosecute any alcohol or drug abuse patient.[facility] CenterIn the event this information is protected by the Federal Confidentiality of Alcohol and Drug Abuse Patient Records regulations: The Federal rules restrict any use of the information to criminally investigate or prosecute any alcohol or drug abuse patient.[facility] CenterIn the event this information is protected by the Federal Confidentiality of Alcohol and Drug Abuse Patient Records regulations: The Federal rules restrict any use of the information to criminally investigate or prosecute any alcohol or drug abuse patient.[facility] CenterIn the event this information is protected by the Federal Confidentiality of Alcohol and Drug Abuse Patient Records regulations: The Federal rules restrict any use of the information to criminally investigate or prosecute any alcohol or drug abuse patient.[facility] CenterIn the event this information is protected by the Federal Confidentiality of Alcohol and Drug Abuse Patient Records regulations: The Federal rules restrict any use of the information to criminally investigate or prosecute any alcohol or drug abuse patient.[facility] CenterIn the event this information is protected by the Federal Confidentiality of Alcohol and Drug Abuse Patient Records regulations: The Federal rules restrict any use of the information to criminally investigate or prosecute any alcohol or drug abuse patient.[facility] CenterIn the event this information is protected by the Federal Confidentiality of Alcohol and Drug Abuse Patient Records regulations: The Federal rules restrict any use of the information to criminally investigate or prosecute any alcohol or drug abuse patient.[facility] CenterIn the event this information is protected by the Federal Confidentiality of Alcohol and Drug Abuse Patient Records regulations: The Federal rules restrict any use of the information to criminally investigate or prosecute any alcohol or drug abuse patient.[facility] CenterIn the event this information is protected by the Federal Confidentiality of Alcohol and Drug Abuse Patient Records regulations: The Federal rules restrict any use of the information to criminally investigate or prosecute any alcohol or drug abuse patient.[facility] CenterIn the event this information is protected by the Federal Confidentiality of Alcohol and Drug Abuse Patient Records regulations: The Federal rules restrict any use of the information to criminally investigate or prosecute any alcohol or drug abuse patient.[facility] CenterIn the event this information is protected by the Federal Confidentiality of Alcohol and Drug Abuse Patient Records regulations: The Federal rules restrict any use of the information to criminally investigate or prosecute any alcohol or drug abuse patient.[facility] CenterIn the event this information is protected by the Federal Confidentiality of Alcohol and Drug Abuse Patient Records regulations: The Federal rules restrict any use of the information to criminally investigate or prosecute any alcohol or drug abuse patient.[facility] CenterIn the event this information is protected by the Federal Confidentiality of Alcohol and Drug Abuse Patient Records regulations: The Federal rules restrict any use of the information to criminally investigate or prosecute any alcohol or drug abuse patient.[facility] CenterIn the event this information is protected by the Federal Confidentiality of Alcohol and Drug Abuse Patient Records regulations: The Federal rules restrict any use of the information to criminally investigate or prosecute any alcohol or drug abuse patient.[facility] CenterIn the event this information is protected by the Federal Confidentiality of Alcohol and Drug Abuse Patient Records regulations: The Federal rules restrict any use of the information to criminally investigate or prosecute any alcohol or drug abuse patient.[facility] CenterIn the event this information is protected by the Federal Confidentiality of Alcohol and Drug Abuse Patient Records regulations: The Federal rules restrict any use of the information to criminally investigate or prosecute any alcohol or drug abuse patient.[facility]In the event this information is protected by the Federal Confidentiality of Alcohol and Drug Abuse Patient Records regulations: The Federal rules restrict any use of the information to criminally investigate or prosecute any alcohol or drug abuse patient.[facility] CenterIn the event this information is protected by the Federal Confidentiality of Alcohol and Drug Abuse Patient Records regulations: The Federal rules restrict any use of the information to criminally investigate or prosecute any alcohol or drug abuse patient.[facility] CenterIn the event this information is protected by the Federal Confidentiality of Alcohol and Drug Abuse Patient Records regulations: The Federal rules restrict any use of the information to criminally investigate or prosecute any alcohol or drug abuse patient.[facility] CenterIn the event this information is protected by the Federal Confidentiality of Alcohol and Drug Abuse Patient Records regulations: The Federal rules restrict any use of the information to criminally investigate or prosecute any alcohol or drug abuse patient.[facility] CenterIn the event this information is protected by the Federal Confidentiality of Alcohol and Drug Abuse Patient Records regulations: The Federal rules restrict any use of the information to criminally investigate or prosecute any alcohol or drug abuse patient.[facility] CenterIn the event this information is protected by the Federal Confidentiality of Alcohol and Drug Abuse Patient Records regulations: The Federal rules restrict any use of the information to criminally investigate or prosecute any alcohol or drug abuse patient.[facility] CenterIn the event this information is protected by the Federal Confidentiality of Alcohol and Drug Abuse Patient Records regulations: The Federal rules restrict any use of the information to criminally investigate or prosecute any alcohol or drug abuse patient.[facility] CenterIn the event this information is protected by the Federal Confidentiality of Alcohol and Drug Abuse Patient Records regulations: The Federal rules restrict any use of the information to criminally investigate or prosecute any alcohol or drug abuse patient.[facility] CenterIn the event this information is protected by the Federal Confidentiality of Alcohol and Drug Abuse Patient Records regulations: The Federal rules restrict any use of the information to criminally investigate or prosecute any alcohol or drug abuse patient.[facility] CenterIn the event this information is protected by the Federal Confidentiality of Alcohol and Drug Abuse Patient Records regulations: The Federal rules restrict any use of the information to criminally investigate or prosecute any alcohol or drug abuse patient.[facility] CenterIn the event this information is protected by the Federal Confidentiality of Alcohol and Drug Abuse Patient Records regulations: The Federal rules restrict any use of the information to criminally investigate or prosecute any alcohol or drug abuse patient.[facility] Care Teams (unrecognized sec tion and content) Bi Tri Operator Relationship Specialty Start Date End Date Marcela Buchanan MD [address] [facility] [place] [address] PCP - General Family Practice 04/15/21 Bi Tri Operator Relationship Specialty Start Date End Date Marcela Buchanan MD [address] [place] [address] PCP - General Family Practice 04/15/21 Bi Tri Operator Relationship Specialty Start Date End Date Marcela Buchanan MD [address] [place] [address] PCP - General Family Practice 04/15/21 Bi Tri Operator Relationship Specialty Start Date End Date Marcela Buchanan MD [address] [place] [address] PCP - General Family Practice 04/15/21 Bi Tri Operator Relationship Specialty Start Date End Date Marcela Buchanan MD [address] [facility] [place] [address] PCP - General Family Practice 04/15/21 Bi Tri Operator Relationship Specialty Start Date End Date Marcela Buchanan MD [address] [place] [address] PCP - General Family Practice 04/15/21 Bi Tri Operator Relationship Specialty Start Date End Date Marcela Buchanan MD [address] [facility] [place] [address] PCP - General Family Practice 04/15/21 Bi Tri Operator Relationship Specialty Start Date End Date Marcela Buchanan MD [address] [place] [address] PCP - General Family Practice 04/15/21 Bi Tri Operator Relationship Specialty Start Date End Date Marcela Buchanan MD [address] [place] [address] PCP - General Family Practice 04/15/21 Bi Tri Operator Relationship Specialty Start Date End Date Marcela Buchanan MD [address] [place] [address] PCP - General Family Practice 04/15/21 Bi Tri Operator Relationship Specialty Start Date End Date Marcela Buchanan MD [address] [facility] [place] [address] PCP - General Family Practice 04/15/21 Bi Tri Operator Relationship Specialty Start Date End Date Marcela Buchanan MD [address] [facility] [place] [address] PCP - General Family Medicine 04/15/21 Bi Tri Operator Relationship Specialty Start Date End Date Marcela Buchanan MD [address] [facility] [place] [address] PCP - General Family Medicine 04/15/21 Bi Tri Operator Relationship Specialty Start Date End Date Marcela Buchanan MD [address] [place] [address] PCP - General Family Medicine 04/15/21 Bi Tri Operator Relationship Specialty Start Date End Date Marcela Buchanan MD [address] [place] [address] PCP - General Family Medicine 04/15/21 Bi Tri Operator Relationship Specialty Start Date End Date Marcela Buchanan MD [address] [place] [address] PCP - General Family Medicine 04/15/21 Bi Tri Operator Relationship Specialty Start Date End Date Marcela Buchanan MD [address] [facility] [place] [address] PCP - General Family Medicine 04/15/21 Bi Tri Operator Relationship Specialty Start Date End Date Naty Hall DO [address] [facility] [place] [address] PCP - General 11/01/21 Bi Tri Operator Relationship Specialty Start Date End Date Marcela Buchanan MD [address] [place] [address] PCP - General Family Medicine 04/15/21 Bi Tri Operator Relationship Specialty Start Date End Date Marcela Buchanan MD [address] [place] [address] PCP - General Family Medicine 04/15/21 Bi Tri Operator Relationship Specialty Start Date End Date Marcela Buchanan MD [address] [facility] [address] [facility] [place] [address] PCP - General Family Medicine 04/15/21 Bi Tri Operator Relationship Specialty Start Date End Date Naty Hall DO [address] [place] [address] PCP - General 11/01/21 Bi Tri Operator Relationship Specialty Start Date End Date Marcela Buchanan MD [address] [place] [address] PCP - General Family Medicine 04/15/21 Bi Tri Operator Relationship Specialty Start Date End Date Naty Hall DO [address] [place] [address] PCP - General 11/01/21 Naty Hall DO [address] [place] [address] PCP - MSSP ACO Attributed Provider 08/13/22 Ashtyn Rome LPN Care Deep Fryer Assembler 03/20/23 Bi Tri Operator Relationship Specialty Start Date End Date Marcela Buchanan MD PCP - General Family Medicine 04/15/21 Bi Tri Operator Relationship Specialty Start Date End Date Marcela Buchanan MD PCP - General Family Medicine 04/15/21 Bi Tri Operator Relationship Specialty Start Date End Date Marcela Buchanan MD (Fax) PCP - General Family Medicine 04/15/21 Bi Tri Operator Relationship Specialty Start Date End Date Marcela Buchanan MD PCP - General Family Medicine 04/15/21 Bi Tri Operator Relationship Specialty Start Date End Date Marcela Buchanan MD PCP - General Family Medicine 04/15/21 Bi Tri Operator Relationship Specialty Start Date End Date Marcela Buchanan MD PCP - General Family Medicine 04/15/21 Bi Tri Operator Relationship Specialty Start Date End Date Marcela Buchanan MD PCP - General Family Medicine 04/15/21 Bi Tri Operator Relationship Specialty Start Date End Date Marcela Buchanan MD PCP - General Family Medicine 04/15/21 Bi Tri Operator Relationship Specialty Start Date End Date Marcela Buchanan MD PCP - General Family Medicine 04/15/21 Bi Tri Operator Relationship Specialty Start Date End Date Marcela Buchanan MD PCP - General Family Medicine 04/15/21 Bi Tri Operator Relationship Specialty Start Date End Date Marcela Buchanan MD PCP - General Family Medicine 04/15/21 Bi Tri Operator Relationship Specialty Start Date End Date Marcela Buchanan MD PCP - General Family Medicine 04/15/21 Bi Tri Operator Relationship Specialty Start Date End Date Marcela Buchanan MD PCP - General Family Medicine 04/15/21 Bi Tri Operator Relationship Specialty Start Date End Date Marcela Buchanan MD PCP - General Family Medicine 04/15/21 Bi Tri Operator Relationship Specialty Start Date End Date Naty Hall DO [address] [place] [address] PCP - MSSP ACO Attributed Provider 08/13/22 Bright Escobedo DO [address] [facility] [place] [address] PCP - General Internal Medicine 09/06/23 Bi Tri Operator Relationship Specialty Start Date End Date Marcela Buchanan MD PCP - General Family Medicine 04/15/21 Bi Tri Operator Relationship Specialty Start Date End Date Marcela Buchanan MD PCP - General Family Medicine 04/15/21 Bi Tri Operator Relationship Specialty Start Date End Date Naty Hall DO [address] [place] [address] PCP - MSSP ACO Attributed Provider 08/13/22 Bright Escobedo DO [address] [facility] [place] [address] PCP - General Internal Medicine 09/06/23 Mary Shi LPN Care Deep Fryer Assembler 01/08/24 Bi Tri Operator Relationship Specialty Start Date End Date Naty Hall DO [address] [place] [address] PCP - MSSP ACO Attributed Provider 08/13/22 Bright Escobedo DO [address] [facility], [facility] [address] [place] [address] PCP - General Internal Medicine 09/06/23 Jennifer Wen, sky diverDeep Fryer Assembler 01/19/24 Bi Tri Operator Relationship Specialty Start Date End Date Naty Hall DO [address] [place] [address] PCP - MSSP ACO Attributed Provider 08/13/22 Bright Escobedo DO [address] [facility], [facility] [address] [place] [address] PCP - General Internal Medicine 09/06/23 Bi Tri Operator Relationship Specialty Start Date End Date Naty Hall DO [address] [place] [address] PCP - MSSP ACO Attributed Provider 08/13/22 Bright Escobedo DO [address] [facility] [place] [address] PCP - General Internal Medicine 09/06/23 Bi Tri Operator Relationship Specialty Start Date End Date Marcela Buchanan MD PCP - General Family Medicine 04/15/21 Bi Tri Operator Relationship Specialty Start Date End Date Bright Escobedo DO [address] [facility] [place] [address] PCP - General Internal Medicine 09/06/23 Bi Tri Operator Relationship Specialty Start Date End Date Bright Escobedo DO [address] [facility] [place] [address] PCP - General Internal Medicine 09/06/23 Bi Tri Operator Relationship Specialty Start Date End Date Bright Escobedo DO [address] [facility], [address] [place] [address] PCP - General Internal Medicine 09/06/23 Bi Tri Operator Relationship Specialty Start Date End Date Bright Escobedo DO [address] [facility], [address] [place] [address] PCP - General Internal Medicine 09/06/23 Bi Tri Operator Relationship Specialty Start Date End Date Bright Escobedo DO [address] [facility], [address] [place] [address] PCP - General Internal Medicine 09/06/23 Bi Tri Operator Relationship Specialty Start Date End Date Bright Escobedo DO [address] [facility], [address] [place] [address] PCP - General Internal Medicine 09/06/23 Bi Tri Operator Relationship Specialty Start Date End Date Bright Escobedo DO [address] [facility], [facility] [address] [place] [address] PCP - General Internal Medicine 09/06/23 Bi Tri Operator Relationship Specialty Start Date End Date Marcela Buchanan MD PCP - General Family Medicine 04/15/21 Bi Tri Operator Relationship Specialty Start Date End Date Marcela Buchanan MD PCP - General Family Medicine 04/15/21 Bi Tri Operator Relationship Specialty Start Date End Date Marcela Buchanan MD PCP - General Family Medicine 04/15/21 Bi Tri Operator Relationship Specialty Start Date End Date Marcela Buchanan MD PCP - General Family Medicine 04/15/21 Bi Tri Operator Relationship Specialty Start Date End Date Bright Escobedo DO [address] [facility], [facility] [address] [place] [address] PCP - General Internal Medicine 09/06/23 Miguel Hdez LPN Wildlife PhotographerDeep Fryer Assembler 08/19/24 Bi Tri Operator Relationship Specialty Start Date End Date Bright Escobedo DO [address] [facility], [facility] [address] [place] [address] PCP - General Internal Medicine 09/06/23 Miguel Hdez LPN Wildlife PhotographerDeep Fryer Assembler 08/19/24 Team Status: Inactive Member Role/Relationship Status Dates Dr. Jenny Correa MD Attending Provider Active Start: June 13, 2024 End: June 13, 2024 Dr. Jenny Correa MD Referring Provider Active Start: June 13, 2024 End: June 13, 2024 GREGG NOVOA Primary Care Provider Active Star t: June 13, 2024 End: June 13, 2024 Team Status: Inactive Member Role/Relationship Status Dates Dr. Jenny Correa MD Attending Provider Active Start: August 13, 2024 Team Status: Inactive Member Role/Relationship Status Dates Dr. Jenny Correa MD Attending Provider Active Start: September 20, 2024 End: September 20, 2024 GREGG ENGLISH Primary Care Provider Active Star t: September 20, 2024 End: September 20, 2024 GREGG ENGLISH Referring Provider Active Start: September 20, 2024 End: September 20, 2024 Reason for Visit (unrecogniz ed section and content) Reason Comments Cardiology Follow Up - Generic Reason Comments Spirometry Specialty Diagnoses / Procedures Referred By Contac t Referred To Contact [facility] Diagnoses Dyspnea, unspecified type Procedures SPIROMETRY - BASELINE AND POST DILATOR BRNCDILAT RSPSE SPMTRY PRE&[place] [address] [place] [address] [place] [address] Referral ID Status Reason Start Date Expiration Date V isits Requested Visits Authorized [id number] Closed Auto-Generate d Referral 04/16/2021 05/16/2022 1 1 Reason Comments New Patient Reason Comments rejection message Reason Comments Refill Request Specialty Diagnoses / Procedures Referred By Contac t Referred To [facility] Diagnoses Chronic obstructive pulmonary disease, unspecified COPD type (HCC) Procedures OXIMETRY WITH AMBULATION NONINVASIVE EAR/PULSE OXIMETRY Kayode Tan MD [address] [place] [address] [place] [address] Referral ID Status Reason Start Date Expiration Date V isits Requested Visits Authorized [id number] Closed Auto-Generate d Referral 08/09/2021 09/08/2022 1 1 Specialty Diagnoses / Procedures Referred By Contac t Referred To Contact [facility] Diagnoses Asthma with chronic obstructive pulmonary disease (COPD) ([facility]) Procedures SPIROMETRY BASELINE ONLY SPMTRY W/VC EXPIRATORY EARNESTINE W/WO MXML VOL VNTJ Kayode Mckeon MD [address] [place] [address] [place] [phone] Referral ID Status Reason Start Date Expiration Date V isits Requested Visits Authorized [id number] Closed Auto-Generate d Referral 07/19/2021 08/18/2022 1 1 Specialty Diagnoses / Procedures Referred By Contac t Referred To [facility] Diagnoses Asthma with chronic obstructive pulmonary disease (COPD) ([facility]) Procedures NITRIC OXIDE, EXHALED NITRIC OXIDE GAS DETERMINATION Kayode Mckeon MD [address] [place] [address] [place] [phone] Referral ID Status Reason Start Date Expiration Date V isits Requested Visits Authorized [id number] Closed Auto-Generate d Referral 07/19/2021 08/18/2022 1 1 Specialty Diagnoses / Procedures Referred By Contac t Referred To [facility] Diagnoses Hypersensitivity pneumonitis ([facility]) Procedures SPIROMETRY BASELINE ONLY SPMTRY W/VC EXPIRATORY EARNESTINE W/WO MXML VOL VNTJ Kayode Mckeon MD [address] [place] [address] [place] [address] Referral ID Status Reason Start Date Expiration Date V isits Requested Visits Authorized [id number] Closed Auto-Generate d Referral 10/22/2021 11/21/2022 1 1 Specialty Diagnoses / Procedures Referred By Contac t Referred To [facility] Diagnoses Hypersensitivity pneumonitis (HCC) Procedures LUNG DIFFUSION CAPACITY (DLCO) DIFFUSING CAPACITY Kayode Mckeon MD [address] [place] [address] [place] [phone] Referral ID Status Reason Start Date Expiration Date V isits Requested Visits Authorized [id number] Closed Auto-Generate d Referral 10/22/2021 11/21/2022 1 1 Reason Comments Xray Results Reason Comments Medicare Annual Wellness Visit Subsequen t Medicare wellness visit Left knee pain Specialty Diagnoses / Procedures Referred By Contac t Referred To [facility] Diagnoses Uncomplicated asthma, unspecified asthma severity, unspecified whether persistent Procedures SPIROMETRY BASELINE ONLY SPMTRY W/VC EXPIRATORY EARNESTINE W/WO MXML VOL VNTJ Kayode Mckeon MD [address] [place] [address] [place] [address] Referral ID Status Reason Start Date Expiration Date V isits Requested Visits Authorized [id number] Closed Auto-Generate d Referral 05/12/2022 06/11/2023 1 1 Specialty Diagnoses / Procedures Referred By Contac t Referred To [facility] Diagnoses Uncomplicated asthma, unspecified asthma severity, unspecified whether persistent Procedures LUNG DIFFUSION CAPACITY (DLCO) DIFFUSING CAPACITY Kayode Mckeon MD [address] [place] [address] [place] [address] Referral ID Status Reason Start Date Expiration Date V isits Requested Visits Authorized [id number] Closed Auto-Generate d Referral 05/12/2022 06/11/2023 1 1 Reason Comments Follow Up Reason Comments Appointment Reason Comments Pain Reason Comments Patient Update Reason Comments Fall Ankle Pain Trip and fall last n ight pain and swelling to right ankle, no head injury no thinners Specialty Diagnoses / Procedures Referred By Contac t Referred To [facility] Diagnoses Uncomplicated asthma, unspecified asthma severity, unspecified whether persistent Hypersensitivity pneumonia (HCC) Interstitial pulmonary disease (HCC) Procedures SPIROMETRY - BASELINE AND POST DILATOR BRNCDILAT RSPSE SPMTRY PRE&POST-BRNCDILAT ADMKayode Drake MD [address] [place] [address] [place] [address] Referral ID Status Reason Start Date Expiration Date V isits Requested Visits Authorized [id number] Closed Auto-Generate d Referral 11/25/2022 12/25/2023 1 1 Specialty Diagnoses / Procedures Referred By Contac t Referred To [facility] Diagnoses Hypersensitivity pneumonia (HCC) Procedures LUNG DIFFUSION CAPACITY (DLCO) [place] [address] [place] [address] [facility] [place] [address] [place] [phone] Referral ID Status Reason Start Date Expiration Date V isits Requested Visits Authorized [id number] Closed Auto-Generate d Referral 11/25/2022 12/25/2023 1 1 Reason Comments Follow Up Specialty Diagnoses / Procedures Referred By Contac t [facility] Diagnoses Hypersensitivity pneumonia (HCC) Procedures LUNG DIFFUSION CAPACITY (DLCO) DIFFUSING CAPACITY Ivan Talavera PA-C [address] [place] [address] [facility] [place] [address] [place] [id number] Referral ID Status Reason Start Date Expiration Date V isits Requested Visits Authorized [id number] Closed Auto-Generate d Referral 06/16/2023 07/15/2024 1 1 Specialty Diagnoses / Procedures Referred By Contac t Referred To Contact [facility] Diagnoses Hypersensitivity pneumonia (HCC) Procedures SPIROMETRY BASELINE ONLY SPMTRY W/VC EXPIRATORY EARNESTINE W/WO MXML VOL VNTJ Ivan Talavera PA-C [address] [place] [address] [facility] [place] [address] [place] [phone] Referral ID Status Reason Start Date Expiration Date V isits Requested Visits Authorized [id number] Closed Auto-Generate d Referral 06/16/2023 07/15/2024 1 1 Referral ID Status Reason Start Date Expiration Date V isits Requested Visits Authorized [id number] Closed Auto-Generate d Referral 07/20/2023 08/18/2024 1 1 Referral ID Status Reason Start Date Expiration Date V isits Requested Visits Authorized [id number] Closed Auto-Generate d Referral 07/20/2023 08/18/2024 1 [address] Specialty Diagnoses / Procedures Referred By Contac t Referred To Contact CT IMAGING Diagnoses Uncomplicated asthma, unspecified asthma severity, unspecified whether persistent Hypersensitivity pneumonia (HCC) Interstitial pulmonary disease (HCC) Procedures CT CHEST WO IVCON DIAGNOSTIC COMPUTED TOMOGRAPHY THORAX W/O Kayode Rucker MD [address] [place] [address] [facility] [place] [address] Referral ID Status Reason Start Date Expiration Date V isits Requested Visits Authorized [id number] Closed Auto-Generate d Referral 11/25/2022 12/25/2023 1 1 Specialty Diagnoses / Procedures Referred By Contac t Referred To Contact CT IMAGING Diagnoses Interstitial pulmonary disease (HCC) Procedures CT CHEST WO IVCON DIAGNOSTIC COMPUTED TOMOGRAPHY THORAX W/O CNTRST Kayode Mckeon MD [address] [place] [address] [facility] [place] [address] Referral ID Status Reason Start Date Expiration Date V isits Requested Visits Authorized [id number] Closed Auto-Generate d Referral 07/19/2021 08/18/2022 1 1 Reason Comments Shortness of Breath Rib Injury Specialty Diagnoses / Procedures Referred By Contac t Referred To Contact Diagnoses Closed fracture of multiple ribs of right side, initial encounter Procedures INPT Sofia Wade MD [address] [address] Phone: tel: fax: [facility] [address] [place] [address] Phone: tel: fax: Referral ID Status Reason Start Date Expiration Date Visits Re quested Visits Authorized [id number] 1 1 Specialty Diagnoses / Procedures Referred By Contac t Referred To Contact [facility] Diagnoses Closed fracture of multiple ribs of right side with routine healing, subsequent encounter Hypoxia Procedures OXIMETRY WITH AMBULATION NONINVASIVE EAR/PULSE OXIMETRY Ivan Vaughn PA-C [address] [place] [address] [facility] [place] [address] [place] [address] Referral ID Status Reason Start Date Expiration Date V isits Requested Visits Authorized [id number] Closed Auto-Generate d Referral 01/08/2024 02/06/2025 1 1 Reason Comments Consult Fall last week, at [facility] , fractured 2 ribs, on oxygen in the hospital for low oxygen levels Reason Comments hospital discharge follow up Reason Comments Pain X1 MONTH AND FALL 3W [place] AGO ONTO SHOULDER Specialty Diagnoses / Procedures Referred By Contact Referred To Contact Orthopaedic Surgery / Orthopedic Surgery Diagnoses Acute pain of right shoulder OtisBright hayes, DO [address] [place] [address] Phone: tel: fax: Referral ID Status Reason Start Date Expiration Date Visits Requested Visits Authorized [id number] Authorized Specialty Services Required 01/19/2024 01/18/2025 1 1 Specialty Diagnoses / Procedures Referred By Homeroac t Referred To Contact Gastroenterology Diagnoses Colon cancer screening Procedures Colonoscopy Screening; Average Risk Patient DC COLONOSCOPY FLX DX W/COLLJ SPEC WHEN PFRMD DC COLON CA SCRN NOT HI RSK IND DC COLORECTAL SCRN; HI RISK IND DC COLONOSCOPY W/BIOPSY SINGLE/MULTIPLE DC COLSC FLX W/RMVL OF TUMOR POLYP LESION SNARE TQ DC COLSC FLX W/REMOVAL LESION BY HOT BX FORCEPS Bright Escobedo DO [address] [place] [address] Referral ID Status Reason Start Date Expiration Date V isits Requested Visits Authorized [id number] Authorized 09/06/2023 09/05/2024 1 1 Reason Comments Follow-up Specialty Diagnoses / Procedures Referred By Wilbur t Referred To Contact [facility] Diagnoses Hypersensitivity pneumonitis (HCC) Procedures SPIROMETRY BASELINE ONLY SPMTRY W/VC EXPIRATORY EARNESTINE W/[place] [address] [place] [address] Phone: tel: fax: [facility] [place] [address] [place] [address] Referral ID Status Reason Start Date Expiration Date V isits Requested Visits Authorized [id number] Closed Auto-Generate d Referral 10/23/2023 11/21/2024 1 1 Specialty Diagnoses / Procedures Referred By Homeroac t Referred To Contact [facility] Diagnoses Hypersensitivity pneumonitis (HCC) Procedures LUNG DIFFUSION CAPACITY (DLCO) DIFFUSING CAPACITY Kayode Mckeon MD [address] [place] [address] Phone: tel: fax: [facility] [place] [address] [place] [phone] Referral ID Status Reason Start Date Expiration Date V isits Requested Visits Authorized [id number] Closed Auto-Generate d Referral 10/23/2023 11/21/2024 1 1 Reason Comments Med Change Request Reason Comments Follow Up Reason Comments Medicare Annual Wellness Visit Subsequen t Medicare wellness; no concerns Reason Comments Follow-up Reason Comments Follow-up F/U RT SHOULDER Reason Comments Follow-up MED CLEARANCE FOR SHOULDER SURGERY Reason Onset Date Comments Transition Of Care 08/19/2024 Chart review Specialty Diagnoses / Procedures Referred By Contac t Referred To Contact [facility] Diagnoses Hypersensitivity pneumonia (HCC) Procedures SPIROMETRY BASELINE ONLY SPMTRY W/VC EXPIRATORY EARNESTINE W/WO MXML VOL VNTJ Ivan Talavera PA-C [address] [place] [address] Phone: tel: fax: [facility] [place] [address] [place] [phone] Referral ID Status Reason Start Date Expiration Date V isits Requested Visits Authorized [id number] Closed Auto-Generate d Referral 05/15/2024 06/14/2025 1 1 Specialty Diagnoses / Procedures Referred By Contac t Referred To Contact [facility] Diagnoses Hypersensitivity pneumonia (HCC) Procedures LUNG DIFFUSION CAPACITY (DLCO) DIFFUSING CAPACITY Ivan Talavera PA-C [address] [place] [address] Phone: tel: fax: [facility] [place] [address] [place] [phone] Referral ID Status Reason Start Date Expiration Date V isits Requested Visits Authorized [id number] Closed Auto-Generate d Referral 05/15/2024 06/14/2025 1 1 Reason Comments Postop Visit RIGHT SHOULDER ARTHR OSCOPIC ROTATOR CUFF REPAIRSUBACROMIAL DECOMPRESSIONDEBRIDEMENTDOS 08/14/24 Specialty Diagnoses / Procedures Referred By Contac t Referred To Contact [facility] Diagnoses Hypersensitivity pneumonitis (HCC) Procedures OXIMETRY WITH AMBULATION NONINVASIVE EAR/PULSE OXIMETRY Kayode Tan MD [address] [place] [address] Phone: tel: fax: [facility] [place] [address] [place] [address] Referral ID Status Reason Start Date Expiration Date V isits Requested Visits Authorized [id number] Closed Auto-Generate d Referral 08/19/2024 09/18/2025 1 1 Reason Comments Results Oximetry Reason Comments hospital follow up for breathing issues Scheduled Active and Recently Administ ered Medications (unrecognized section and content) Medication Order 04/10/2023 04/11/2023 04/12/2023 ketorolac (Toradol) injection 15 mg (COMPLETED) 15 mg, intramuscular, Once, On Mon04/12/23 at 1030, For 1 dose 1043 (Given - Provid er: Alejo Laughlin LPN) Scheduled Medication Order 01/03/2024 01/04/2024 01/05/2024 acetaminophen (Tylenol) tablet 975 mg (CANCELED) 975 mg, oral, Every 6 hours scheduled, First dose on Mon01/03/24 at 0000, Phase II/On Unit, If ordered PRN for pain, nurse is permitted to administer this medication for higher pain scores based on patient preference? Yes 0110 (Given - Provider: Jenny Martinez RN)0614 (Given - Provider: Melodie Flores RN)1137 (Given - Provider: Karthikeyan Barrera RN)1848 (Given - Provider: Karthikeyan Barrera RN)2343 (Not Given - Provider: Donna Mayer RN - Reason: Other - Comment: cumultive overdose) 0645 (Not Given - Provider: Donna Mayer RN - Reason: Patient/family refused) acetaminophen (Tylenol) tablet 975 mg 975 mg, oral, 3 times daily, First dose (after last modification) on Jacqueline 01/04/24 at 1500, If ordered PRN for pain, nurse is permitted to administer this medication for higher pain scores based on patient preference? Yes 1504 (Given - Provider: Karthikeyan Barrera RN)2050 (Given - Provider: Radha Vincent RN) 0820 (Given - Provider: Shahzad Farrell)1259 (Given - Provider: Roxanne Clark RN)2100 (Due) atorvastatin (Lipitor) tablet 80 mg 80 mg, oral, Daily, First dose on Mon01/03/24 at 0900 0909 (Given - Provider: Karthikeyan Barrera RN) 0831 (Given - Provider: Karthikeyan Barrera RN) 0821 (Given - Provider: Shahzad Farrell) buPROPion XL (Wellbutrin XL) 24 hr tablet 150 mg 150 mg, oral, Every morning, First dose on Mon01/03/24 at 0900, Do not crush, chew, or split. 0910 (Given - Provider: Karthikeyan Barrera RN) 0831 (Given - Provider: Karthikeyan Barrera RN) 0821 (Given - Provider: Shahzad Farrell) citalopram (CeleXA) tablet 40 mg 40 mg, oral, Daily, First dose on Mon01/03/24 at 0900 0910 (Given - Provider: Karthikeyan Barrera RN) 0831 (Given - Provider: Karthikeyan Barrera RN) 0820 (Given - Provider: Shahzad Farrell) enoxaparin (Lovenox) syringe 30 mg 30 mg, subcutaneous, Every 12 hours, First dose on Mon01/02/24 at 2335 0111 (Given - Provider: Jenny Martinez RN)1137 (Given - Provider: Karthikeyan Barrera RN)2345 (Given - Provider: Donna Mayer, KATERINA) 1106 (Given - Provider: Karthikeyan Barrera, KATERINA)2235 (Given - Provider: Radha Vincent, KATERINA) 1036 (Given - Provider: Shahzad Farrell)2335 (Due) fluticasone furoate-vilanteroL (Breo Ellipta) 200-25 mcg/dose inhaler 1 puff 1 puff, inhalation, Daily RT, First dose on Mon01/03/24 at 0700, Rinse mouth with water after use to reduce aftertaste and incidence of candidiasis. Do not swallow. 0856 (Given - Provider: Karuna Araujo) 0654 (Given - Provider: Karuna Araujo) 0703 (Not Given - Provider: Jon Conde, DAY HABILITATION SUPERVISOR - Reason: Patient/family refused) gabapentin (Neurontin) capsule 100 mg (CANCELED) 100 mg, oral, 3 times daily, First dose on Mon01/02/24 at 2335, Phase II/On Unit, Capsules may be opened and sprinkled on food (eg, applesauce, orange juice, pudding 0109 (Given - Provider: Jenny Martinez RN)0910 (Given - Provider: Karthikeyan Barrera RN)1513 (Not Given - Provider: Karthikeyan Barrera RN - Reason: Other - Comment: sleeping)2032 (Given - Provider: Donna Mayer, KATERINA) gabapentin (Neurontin) capsule 300 mg 300 mg, oral, 3 times daily, First dose (after last modification) on Mon01/04/24 at 0900, Capsules may be opened and sprinkled on food (eg, applesauce, orange juice, pudding 0831 (Given - Provider: Karthikeyan Barrera RN)1504 (Given - Provider: Karthikeyan Barrera RN)2049 (Given - Provider: Radha iVncent RN) 0821 (Given - Provider: Shahzad Farrell)1259 (Given - Provider: Roxanne Clark, KATERINA)2100 (Due) ibuprofen tablet 600 mg 600 mg, oral, 3 times daily, First dose on Mon01/02/24 at 2335, May administer with food to reduce GI upset., If ordered PRN for pain, nurse is permitted to administer this medication for higher pain scores based on patient preference? Yes 0110 (Given - Provider: Jenny Martinez RN)0910 (Given - Provider: Karthikeyan Barrera RN)1513 (Not Given - Provider: Karthikeyan Barrera RN - Reason: Other - Comment: sleeping)2031 (Given - Provider: Donna Mayer, KATERINA) 0830 (Given - Provider: Karthikeyan Barrera RN)1504 (Given - Provider: Karthikeyan Barrera RN)2049 (Given - Provider: Radha Vincent RN) 0821 (Given - Provider: Shahzad Farrell)1300 (Given - Provider: Roxanne Clark, KATERINA)2100 (Due) ipratropium-albuteroL (Duo-Neb) 0.5-2.5 mg/3 mL nebulizer solution 3 mL 3 mL, nebulization, 2 times daily RT, First dose (after last modification) on Mon01/03/24 at 1900 1854 (Given - Provider: Eliana Riggs, HEAD DOFFER) 0659 (Given - Provider: Karuna Araujo)1948 (Given - Provider: Mark Matute, DAY HABILITATION SUPERVISOR) 0701 (Given - Provider: Jon Conde, BRITANY)1900 (Due) lactated Ringer's bolus 500 mL (COMPLETED) 500 mL, intravenous, at 500 mL/hr, Administer over 1 Hours, Once, On Jacqueline 01/04/24 at 0800, For 1 dose 0831 (New Bag - Provider: Karthikeyan Barrera, KATERINA)0932 (Stopped - Provider: Karthikeyan Barrera RN) lactated Ringer's bolus 500 mL (COMPLETED) 500 mL, intravenous, at 500 mL/hr, Administer over 1 Hours, Once, On Jacqueline 01/04/24 at 1715, For 1 dose 1659 (New Bag - Provider: Radha Vincent, KATERINA)1956 (Stopped - Provider: Radha Vincent RN) lidocaine 4 % patch 1 patch 1 patch, transdermal, Administer over 12 Hours, Daily, First dose (after last modification) on Mon01/03/24 at 0250, 12 hours on and 12 hours off. 0413 (Medication Applied - Provider: Melodie Flores RN)1514 (Medication Removed - Provider: Karthikeyan Barrera RN) 0832 (Medication Applied - Provider: Karthikeyan Barrera, KATERINA)205 (Medication Removed - Provider: Radha Vincent RN) 0822 (Medication Applied - Provider: Shahzad Farrell)2021 (Due: Medication Removed - Provider: Shahzad Farrell) lidocaine 4 % patch 1 patch (CANCELED) 1 patch, transdermal, Administer over 12 Hours, Daily, First dose on Mon01/03/24 at 1245, Apply to ribs. Patch will remain on for 12 hours, then removed for [address] patch directly over any surgical incisions or wounds. 1234 (Medication Applied - Provider: Karthikeyan Barrera RN)2345 (Medication Removed - Provider: Donna Mayer RN) magnesium oxide (Mag-Ox) tablet 400 mg 400 mg, oral, Daily, First dose on Mon01/03/24 at 0900 0910 (Given - Provider: Karthikeyan Barrera, RN) 0831 (Given - Provider: Karthikeyan Barrera, RN) 0820 (Given - Provider: Shahzad Farrell) methocarbamol (Robaxin) tablet 500 mg 500 mg, oral, Every 8 hours scheduled, First dose (after last modification) on Mon01/04/24 at 0800 0835 (Given - Provider: Karthikeyan Barrera, RN)1417 (Given - Provider: Karthikeyan Barrera RN)2227 (Given - Provider: Radha Vincent, KATERINA) 0611 (Given - Provider: Allison Hebert RN)1300 (Given - Provider: Roxanne Clark, KATERINA)2200 (Due) oxybutynin (Ditropan) tablet 5 mg 5 mg, oral, 2 times daily, First dose on Mon01/03/24 at 0900, Automatic substitution for detrol la 2mg daily per system policy 0910 (Given - Provider: Karthikeyan Barrera RN)2031 (Given - Provider: Donna Mayer, KATERINA) 0831 (Given - Provider: Karthikeyan Barrera RN)2050 (Given - Provider: Radha Vincent RN) 0821 (Given - Provider: Shahzad Farrell)2100 (Due) oxygen (O2) therapy (CANCELED) inhalation, Continuous - Inhalation, First dose on Mon01/02/24 at 2155, Device: High Flow Nasal Cannula (HFNC), HNFC TYPE: LPM Flow and FIO2, Rate in liters per minute: 60 LPM, FiO2: 60%, Keep O2 Sat Above: 90% 0755 (Rate Verify Medical Gas - Provider: Karthikeyan Barrera RN)0830 (Rate Change Medical Gas - Provider: Radha Love DAY HABILITATION SUPERVISOR - Comment: 50L)1218 (Rate Change Medical Gas - Provider: Radha Love, DAY HABILITATION SUPERVISOR - Comment: 50L) oxygen (O2) therapy inhalation, Continuous - Inhalation, First dose (after last modification) on Mon01/03/24 at 2000, Device: High Flow Nasal Cannula (HFNC), HNFC TYPE: LPM Flow and FIO2, Rate in liters per minute: 50 LPM, FiO2: 40%, Keep O2 Sat Above: 90% 2032 (Rate Verify Medical Gas - Provider: Donna Mayer RN) 0654 (Start - Provider: Radha Love RRT - Comment: 6L)1999 (Due) 0701 (Rate Verify Medical Gas - Provider: Jon Conde, BRITANY)1999 (Due - Provider: Jon Conde RRT) polyethylene glycol (Glycolax, Miralax) packet 17 g (CANCELED) 17 g, oral, Daily, First dose on Mon01/03/24 at 0900, Phase II/On Unit, Bowel Regimen - for prevention of constipation. 910 (Given - Provider: Karthikeyan Barrera RN) polyethylene glycol (Glycolax, Miralax) packet 17 g 17 g, oral, 2 times daily, First dose (after last modification) on Mon01/04/24 at 0900, Bowel Regimen - for prevention of constipation. 1000 (Given - Provider: Karthikeyan Barrera RN)2049 (Given - Provider: Radha Vincent RN) 08 (Given - Provider: Shahzad Farrell)2100 (Due) sennosides-docusate sodium (Sofia-Colace) 8.6-50 mg per tablet 1 tablet 1 tablet, oral, 2 times daily, First dose on Jacqueline 01/04/24 at 0900 1000 (Given - Provider: Karthikeyan Barrera RN)2049 (Given - Provider: Radha Vincent RN) 08 (Given - Provider: Shahzad Farrell)2100 (Due) PRN Medication Order 01/03/2024 01/04/2024 01/05/2024 albuterol 2.5 mg /3 mL (0.083 %) nebulizer solution 2.5 mg 2.5 mg, nebulization, Every 2 hour PRN, shortness of breath, Starting on Mon01/03/24 at 0021 albuterol 90 mcg/actuation inhaler 2 puff 2 puff, inhalation, Every 2 hour PRN, wheezing, Starting on Mon01/03/24 at 0020, Shake well before use. methocarbamol (Robaxin) tablet 500 mg (CANCELED) 500 mg, oral, Every 8 hours PRN, muscle spasms, Starting on Mon01/02/24 at 2327, Phase II/On Unit 0110 (Given - Provider: Jenny Martinez RN)1137 (Given - Provider: Karthikeyan Barrera RN) ondansetron (Zofran) injection 4 mg(Linked Group 1) 4 mg, intravenous, Every 8 hours PRN, nausea/vomiting, first line, Starting on Mon01/02/24 at 2327, 1st Line. Give IV if patient is unable to take orally. If inadequate response within 60 minutes, proceed to next-line agent for same PRN reason or contact provider if no further options ordered. When administering via IV Push, administer over 3-5 minutes. ondansetron (Zofran) tablet 4 mg(Linked Group 1) 4 mg, oral, Every 8 hours PRN, nausea/vomiting, first line, Starting on Mon01/02/24 at 2327, 1st Line. Use oral route first, if possible. If inadequate response within 60 minutes, proceed to next-line agent for same PRN reason or contact provider if no further options ordered. oxyCODONE (Roxicodone) immediate release tablet 10 mg (CANCELED) 10 mg, oral, Every 6 hours PRN, pain severe (7-10), first line, Starting on Mon01/02/24 at 2328, Phase II/On Unit, If ordered PRN for pain, nurse is permitted to administer this medication for higher pain scores based on patient preference? Yes 1851 (Given - Provider: Karthikeyan Barrera RN) oxyCODONE (Roxicodone) immediate release tablet 5 mg (CANCELED) 5 mg, oral, Every 6 hours PRN, pain moderate (4-6), first line, Starting on Mon01/02/24 at 2328, Phase II/On Unit, If ordered PRN for pain, nurse is permitted to administer this medication for higher pain scores based on patient preference? Yes 0429 (Given - Provider: Melodie Flores RN) oxyCODONE (Roxicodone) immediate release tablet 5 mg 5 mg, oral, Every 4 hours PRN, pain moderate (4-6), first line, pain severe (7-10), first line, Starting on Jacqueline 01/04/24 at 0740, If ordered PRN for pain, nurse is permitted to administer this medication for higher pain scores based on patient preference? Yes 1106 (Given - Provider: Karthikeyan Barrera RN) 0819 (Given - Provider: Shahzad Farrell) Linked Groups Order Group 1: ondansetron (Zofran) tablet 4 mgJump to med 4 mg, oral, Every 8 hours PRN, nausea/vomiting, first line, Starting on Mon01/02/24 at 2327, 1st Line. Use oral route first, if possible. If inadequate response within 60 minutes, proceed to next-line agent for same PRN reason or contact provider if no further options ordered. Or ondansetron (Zofran) injection 4 mgJump to med 4 mg, intravenous, Every 8 hours PRN, nausea/vomiting, first line, Starting on Mon01/02/24 at 2327, 1st Line. Give IV if patient is unable to take orally. If inadequate response within 60 minutes, proceed to next-line agent for same PRN reason or contact provider if no further options ordered. When administering via IV Push, administer over 3-5 minutes. Scheduled Medication Order 08/15/2024 08/16/2024 08/17/2024 acetaminophen (Tylenol) tablet 975 mg 975 mg, oral, Every 8 hours, First dose (after last modification) on Jacqueline 08/15/24 at 0915, If ordered PRN for pain, nurse is permitted to administer this medication for higher pain scores based on patient preference? Yes 1034 (Given - Provider: Pari Rios RN)1714 (Given - Provider: Pari Rios RN) 0030 (Given - Provider: Anu Sharp RN)0815 (Given - Provider: Cleo Odonnell LPN)1740 (Given - Provider: Cleo Odonnell LPN) 0226 (Not Given - Provider: Darby Joseph RN - Reason: Patient/family refused)0901 (Given - Provider: Ana Levin RN)1715 (Due) aspirin EC tablet 81 mg 81 mg, oral, Daily, First dose on Mon08/14/24 at 1900, Do not crush, chew, or split. 0831 (Given - Provider: Pari Rios RN) 0808 (Given - Provider: Cleo Odonnell LPN) 0901 (Given - Provider: Ana Levin RN) atorvastatin (Lipitor) tablet 80 mg 80 mg, oral, Daily, First dose on Mon08/14/24 at 1900 0830 (Given - Provider: Pari Rios RN) 0808 (Given - Provider: Cleo Odonnell LPN) 0901 (Given - Provider: Ana Levin RN) bisacodyl (Dulcolax) suppository 10 mg 10 mg, rectal, Once, On 7/5/25 at 1045, For 1 dose 1045 (Due) buPROPion XL (Wellbutrin XL) 24 hr tablet 150 mg 150 mg, oral, Every morning, First dose on Mon08/15/24 at 0900, Do not crush, chew, or split. 0830 (Given - Provider: Pari Rios RN) 0808 (Given - Provider: Cleo Odonnell LPN) 0901 (Given - Provider: Ana Levin RN) citalopram (CeleXA) tablet 40 mg 40 mg, oral, Daily, First dose on Mon08/14/24 at 1900 0830 (Given - Provider: Pari Rios RN) 0808 (Given - Provider: Cleo Odonnell LPN) 0901 (Given - Provider: Ana Levin RN) docusate sodium (Colace) capsule 100 mg (CANCELED) 100 mg, oral, 2 times daily, First dose on Mon08/15/24 at 0930 1034 (Given - Provider: Pari Rios RN) enoxaparin (Lovenox) syringe 40 mg 40 mg, subcutaneous, Daily, First dose on Mon08/14/24 at 1915 2124 (Given - Provider: Anu Sharp RN) 2218 (Given - Provider: Darby Joseph RN) 2100 (Due - Provider: Rosanna Reid, VannessaD) fluticasone furoate-vilanteroL (Breo Ellipta) 200-25 mcg/dose inhaler 1 puff 1 puff, inhalation, Daily RT, First dose on Mon08/15/24 at 0700, Rinse mouth with water after use to reduce aftertaste and incidence of candidiasis. Do not swallow. 1006 (Given - Provider: Ming Wiggins) 0630 (Given - Provider: Eladia Baig RRT) 0647 (Given - Provider: Radha Love RRT) gabapentin (Neurontin) capsule 300 mg 300 mg, oral, Nightly, First dose on Mon08/15/24 at 2100, Capsules may be opened and sprinkled on food (eg, applesauce, orange juice, pudding 2124 (Given - Provider: Anu Sharp RN) 221 (Given - Provider: Darby Joseph RN) 2100 (Due) predniSONE (Deltasone) tablet 40 mg 40 mg, oral, Daily, First dose on Mon08/16/24 at 1745, For 5 days 1740 (Given - Provider: Cleo Odonnell LPN) 0901 (Given - Provider: Ana Levin RN) psyllium (Metamucil) packet 1 packet 1 packet, oral, 3 times daily, First dose on Mon08/15/24 at 1500, Give with at least 8 ounces of water or juice 1547 (Not Given - Provider: Pari Rios RN - Reason: Other)2124 (Given - Provider: Anu Sharp RN) 0809 (Given - Provider: Cleo Odonnell LPN)144 (Given - Provider: Cleo Odonnell LPN)221 (Given - Provider: Darby Joseph RN) 0901 (Given - Provider: Ana Levin RN)1500 (Due)2100 (Due) sennosides-docusate sodium (Sofia-Colace) 8.6-50 mg per tablet 1 tablet 1 tablet, oral, Nightly, First dose on Mon08/15/24 at 2100 2124 (Given - Provider: Anu Sharp RN) 221 (Given - Provider: Darby Joseph RN) 2100 (Due) PRN Medication Order 08/15/2024 08/16/2024 08/17/2024 oxyCODONE (Roxicodone) immediate release tablet 10 mg 10 mg, oral, Every 6 hours PRN, pain severe (7-10), first line, Starting on Mon08/15/24 at 0854, If ordered PRN for pain, nurse is permitted to administer this medication for higher pain scores based on patient preference? Yes 2124 (Given - Provider: Anu Sharp RN) 0335 (Given - Provider: Anu Sharp RN)0947 (Given - Provider: Cleo Odonnell LPN)174 (Given - Provider: Cleo Odonnell LPN) oxyCODONE (Roxicodone) immediate release tablet 5 mg 5 mg, oral, Every 4 hours PRN, pain moderate (4-6), first line, Starting on Jacqueline 08/15/24 at 0855, If ordered PRN for pain, nurse is permitted to administer this medication for higher pain scores based on patient preference? Yes 1038 (Given - Provider: Pari Rios RN)1620 (Given - Provider: Pari Rios RN) 2347 (Given - Provider: Darby Joseph, KATERINA) 0612 (Given - Provider: Darby Joseph RN) traMADol (Ultram) tablet 50 mg 50 mg, oral, Every 8 hours PRN, pain severe (7-10), second line, Starting on Mon08/14/24 at 1847, Preprocedure, If ordered PRN for pain, nurse is permitted to administer this medication for higher pain scores based on patient preference? Yes 0830 (Given - Provider: Pari Rios RN) FOR RECORDS PERTAINING TO PATIENTS WHO ARE OR HAVE BEEN ENROLLED IN A CHEMICAL DEPENDENCY/SUBSTANCEABUSE PROGRAM, SOME INFORMATION MAY BE OMITTED. This clinical summary was aggregated from multiple sources. Caution should be exercised in using it in the provision of clinical care. This summary normalizes information from multiple sources, and as a consequence, information in this document may materially change the coding, format and clinical context of patient data. In addition, data may be omitted in some cases. CLINICAL DECISIONS SHOULD BE BASED ON THE PRIMARY CLINICAL RECORDS. [employer] provides no warranty or guarantee of the accuracy or completeness of information in this document.
[2024-09-26] MEDS: Lactated Ringers 1,000 ML 15 ML IV (07:27)
--- NOTE | 2024-09-26 07:47 | PRE.ANES_ITS ---
ASA Classification* ASA Classification ASA Classification: 2 Assessment & Plan Anesthesia* Anesthesia Assessment Anesthesia Assessment: Discussed sedation and/or anesthesia options, risks, benefits, and alternatives with patient/parents/legal guardian/POA. Questions invited. The patient/parents/legal guardian/POA seems to understand and agrees to proceed with anesthesia plan. Reviewed the physical assessment, medical history, allergy history and patient home medications list prior to surgery/procedure/anesthetic and documented any changes. Performed airway and anesthesia risk assessments. Anesthesia Type Anesthesia Type: MAC History Source History Obtained from:: Patient and Chart Anesthesia Focused Assessment* Temperature: 98.1 F Pulse Rate: 67 Blood Pressure: 120/59 Respiratory Rate: 16 Pulse Ox: 93 Oxygen Delivery Method: Room Air Airway Assessment Mouth opens: >3 cm Mallampati Score: IV Teeth Condition: Intact Neck Range of motion (ROM): Limited ROM (Slight Decrease) Labs Anesthesia Preop lab: CBC CHEMISTRY COAG Pre-Assessment Diagnosis/Proposed Procedure Planned Operative Procedure(s): Cysto, Injection Bulkamid Anesthesia History Anesthesia History - manager of hospital: Anesthesia History - manager of hospital Hx Hospitalization Yes: 09-06 rotator cuff - 09/12/24 13:48 [place] Any Problems With Anesthesia Yes: ponv 09/12/24 13:48 Cholinesterase deficiency No 09/12/24 13:48 You/Your Family Experience No 09/12/24 13:48 fever (hyperthermia) with Relationship Recent Exposure to Contagious No 09/26/24 07:17 Disease Does patient have nerve No 09/12/24 13:48 stimulator Patient instructed to have device shut off --Does patient have Pacemaker No 09/26/24 07:17 or ICD? When Was Last Pacemaker Check QUESTION #4 FULL TEXT: You/Your Family Experience fever (hyperthermia) with Anesthesia Last Oral Intake Last Oral intake: Last Oral Intake NPO since 20:00 09/26/24 07:17 Meds taken in AM with sips of No 09/26/24 07:17 water? Meds patient instructed to take am of surgery PONV PONV - manager of hospital: PONV - manager of hospital Female Yes 09/12/24 13:48 HX of Motion Sickness No 09/12/24 13:48 HX of N/V After Surgery Yes 09/12/24 13:48 Non-Smoker Yes 09/12/24 13:48 Duration of Surgery greater No 09/12/24 13:48 than 60 minutes Number of Risk Factors 3 09/12/24 13:48 PONV Score Moderate Risk 09/12/24 13:48 Height & Weight Height & Weight: Anesthesia: Height & Weight Height 5 ft 7 in 09/26/24 07:17 Weight: 81.2 kg 09/26/24 07:17 Body Mass Index (BMI) 28.0 09/26/24 07:17 Respiratory Assessment Respiratory Assessment - manager of hospital: Respiratory Tract Infection Hx - manager of hospital Hx Respiratory Tract Infection No 09/12/24 13:48 STOP Sleep Apnea STOP Sleep Apnea - manager of hospital: STOP Sleep Apnea - manager of hospital Hx Hypertension No 09/12/24 13:48 Hx Sleep Apnea No 09/12/24 13:48 CPAP BIPAP Do you snore loudly (louder No 09/12/24 13:48 than talking or can be heard Do you often feel tired/ No 09/12/24 13:48 fatigued/ sleepy during daytime? Has anyone observed you stop No 09/12/24 13:48 breathing during sleep? STOP Results Negative 09/12/24 13:48 QUESTION #5 FULL TEXT : Do you snore loudly (louder than talking or can be heard through closed doors)? 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 Specify any problems Hx of Preganancy in last 3 No 09/12/24 13:48 Months Nurse Filling Out Transfusion JZOLLINGE 09/12/24 13:48 & Questions: Date: 09/12/24 09/12/24 13:48 Time: 13:50 09/12/24 13:48 Patient unable to answer at this time (ie. confused, unrespo /Reproduction History /Reproductive History - manager of hospital: /Reproductive Hx- manager of hospital Hx Now No 09/12/24 13:48 Gestational Age (in weeks): EDC: Hx Hx Para Hx Section SAB No 09/12/24 13:48 Active Medications Active Medications: Current Medications Generic Name Dose Route Start Last Admin Trade Name Freq PRN Reason Stop Dose Admin Lactated Ringer's 1,000 mls @ 15 mls/hr 09/26/24 07:00 09/26/24 07:27 IV 15 mls/hr .Q48H HERNANDEZ Administration PFSH Medical History Constipation Vaginal atrophy Overactive bladder UTI (urinary tract infection) Kidney stones SHAQ (stress urinary incontinence, female) Intrinsic sphincter deficiency Post-menopausal Wears glasses Depression Former smoker Asthma Shortness of breath on exertion Home Medications ?Medication ?Instructions ?Recorded ?Last Taken ?Type albuterol sulfate 90 mcg/actuation 2 puff inhalation Q 4H PRN PRN 05/30/24 09/26/24 05:00 History aerosol inhaler wheezing aspirin 81 mg chewable tablet 1 tab PO DAILY 05/30/24 09/19/24 History (Ban Chewable Low Dose Aspirin) atorvastatin 80 mg tablet 80 mg PO DAILY 05/30/2409/13 History budesonide-formoterol HFA 160 2 puff inhalation BID DC N wheezing 05/30/24 06/13/24 06:00 History mcg-4.5 mcg/actuation aerosol inhaler bupropion HCl 150 mg 24 hr tablet, 150 mg PO DAILY 09/25/24 History extended release citalopram 40 mg tablet 40 mg PO DAILY 05/30/2409/13 History gabapentin 300 mg capsule 300 mg PO DAILY 05/30/24 History acetaminophen 500 mg tablet 500 mg PO Q6H PRN fever or pain 09/12/24 Unknown History meloxicam 15 mg tablet 15 mg PO DAILY PRN moderate pain 09/12/24 Unknown History moxifloxacin 0.5 % eye drops 1 drp RIGHT EYE 4X/DAY 09/25/24 History ondansetron 8 mg disintegrating 8 mg PO Q8H PRN PRN na usea and 09/12/24 Unknown History tablet vomiting Allergy/AdvReac Type Severity Reaction Status Date / Time No Known Allergies Allergy Verified 09/20/24 10:20 Family History Other Breast cancer Diabetes Heart disease Surgical History H/O cystoscopy Hx of section Hx of cholecystectomy Hx of colonoscopy Social History Smoking Status: Former smoker alcohol intake: never what type of physical activity do you participate in: other frequency: 3-4 times per week duration: other do you feel safe at home: Yes Review of Systems (Anesthesia) ROS Narrative System reviewed and no additional complaints, except as documented. Physical Exam Resp clear to auscultation bilaterally
--- NOTE | 2024-09-26 08:00 | PCM.HP.BLA ---
History and Physical Date of Admission: 09/26/24 Date of Service: 09/20/24 MR#: [id number] Acct: [id number] Name: KASSANDRA SMITH Rep #: [id number] : 1955 Provider: Dr. Jenny Correa MD Age/Sex: 69/F Location: 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 Accompanied by: self Is patient in pain?: No Allergies No Known Allergies Allergy (Verified 09/20/24 10:20) Medications ?Medication ?Instructions ?Recorded ?Confirmed ?Type albuterol sulfate 90 mcg/actuation 2 puff inhalation Q4H PRN PRN 05/30/24 09/20/24 History aerosol inhaler wheezing aspirin 81 mg chewable tablet 1 tab PO DAILY 05/30/24 09/20/24 History (Ban Chewable Low Dose Aspirin) atorvastatin 80 mg tablet 80 mg PO DAILY 05/30/24 09/20/24 History budesonide-formoterol HFA 160 2 puff inhalation BID PRN wheezing 05/30/24 09/20/24 History mcg-4.5 mcg/actuation aerosol inhaler bupropion HCl 150 mg 24 hr tablet, 150 mg PO DAILY 05/30/24 09/20/24 History extended release citalopram 40 mg tablet 40 mg PO DAILY 05/30/24 09/20/24 History gabapentin 300 mg capsule 300 mg PO DAILY 05/30/24 09/20/24 History acetaminophen 500 mg tablet 500 mg PO Q6H PRN fever or pain 09/12/24 09/20/24 History meloxicam 15 mg tablet 15 mg PO DAILY PRN moderate pain 09/12/24 09/20/24 History moxifloxacin 0.5 % eye drops 1 drp RIGHT EYE 4X/DAY 09/12/24 09/20/24 History ondansetron 8 mg disintegrating 8 mg PO Q8H PRN PRN nausea and 09/12/24 09/20/24 History tablet vomiting Have you fallen in the past year?: No PFSH Medical History Constipation Vaginal atrophy Overactive bladder UTI (urinary tract infection) Kidney stones SHAQ (stress urinary incontinence, female) Intrinsic sphincter deficiency Post-menopausal Wears glasses Depression Former smoker Asthma Shortness of breath on exertion Surgical History H/O cystoscopy Hx of section Hx of cholecystectomy Hx of colonoscopy Family History Other Breast cancer Diabetes Heart disease Social History Smoking Status: Former smoker alcohol intake: never what type of physical activity do you participate in: other How many days of moderate to strenuous exercise, like a brisk walk, did you do in the last 7 days: 3 frequency: 3-4 times per week duration: other do you feel safe at home: Yes HPI HPI Urology Chief Complaint: preoperation urine and consent Details: KASSANDRA SMITH, is a 69 F. The patient is here for preoperative history and physical prior to cystoscopy with Bulkamid injection. There are no new symptoms since the last visit. The procedure, recovery and expectations were explained. The risks, benefits and alternatives were discussed, including but not limited to, the risks of anesthesia, bleeding, infection, injury, pain and the need for further intervention. We have discussed the risk of exposure to and/or potential harm posed by the COVID-19 virus with having a surgery/procedure at this time. A joint decision was made at this time to proceed with the scheduled surgery/procedure as indicated on the consent form. ROS Const Constitutional: No chills, fatigue, fever(s), headache(s), night sweats, weakness, weight change, abnormal sleep pattern or change in appetite Eyes Eyes: No change in vision ENT ENT: No headache(s) or dry mouth Resp Respiratory: No cough, chest congestion, shortness of breath or wheezing Cardio Cardiology: Positive for other (No chest pain.); No shortness of breath, irregular heart rhythm or lightheadedness Gastro GI: Positive for other (No nausea.); No abdominal pain, change in bowel habits, constipation, diarrhea or vomiting Musc Musculoskeletal: Positive for other (right rotator cuff repair 4 weeks ago, doing well); No abnormal gait Skin Skin: No yellowing of the eye, lesions, itchy eyes, rash or skin ulcer Neuro Neurology: No abnormal gait, confusion, dizziness, weakness, headache(s) or memory loss Psych Psychiatric: No abnormal sleep pattern, No change in appetite, No confusion and No memory loss Endo Endocrine: No fatigue, increased thirst/drinking or weight change Aller/Imm Allergy/Immunologic: No itchy eyes or wheezing [place]/Lymp Hematologic/Lymphatic: No easy bleeding, easy bruising or enlarged lymph nodes Exam Const General: cooperative, healthy appearing, comfortable and no acute distress HENMT Head: normocephalic and atraumatic Ears: hearing grossly normal bilaterally and external ears normal Nose: external nose normal Eyes General: appearance normal, both eyes and all related structures Neck Neck: normal visual inspection and trachea midline Chest Chest palpation & inspection: normal inspection of the chest Resp Effort & Inspection: normal respiratory effort, able to speak in complete sentences and symmetric chest movement Cardio Rate: regular rate GI Inspection: normal to inspection Palpation: soft and nontender General: No CVA tenderness Skin General: no rashes or lesions noted Neuro General: patient alert, patient awake, patient oriented x3 and CN's II-XI intact bilaterally Extrem General: normal to inspection Psych Appearance: grossly normal and well kempt Mental Status: mental status grossly normal Results POC UA Auto w/o Microscopy Office Urine Color ? Last Edit by Bee Palmer on 09/20/24 10:29 Office Urine Clarity ? Last Edit by Bee Palmer on 09/20/24 10:29 Office Urine Glucose Negative Last Edit by Bee Palmer on 09/20/24 10:29 Office Urine Ketones Negative Last Edit by Bee Palmer on 09/20/24 10:29 Office Urine Bilirubin Negative Last Edit by Bee Palmer on 09/20/24 10:29 Office Urine Urobilinogen Negative Last Edit by Bee Palmer on 09/20/24 10:29 Off Ur Spec [place] 1.020 Last Edit by Bee Palmer on 09/20/24 10:29 Office Urine pH 5 Last Edit by Bee Palmer on 09/20/24 10:29 Office Urine Protein Negative Last Edit by Bee Palmer on 09/20/24 10:29 Office Urine Blood Negative Last Edit by Bee Palmer on 09/20/24 10:29 Office Urine Blood Hemolyzed Negative Last Edit by Bee Palmer on 09/20/24 10:29 Office Urine Nitrate Negative Last Edit by Bee Palmer on 09/20/24 10:29 Off Ur Leukocytes Positive Last Edit by Bee Palmer on 09/20/24 10:29 Coding Level of Care Code Off vis,est,level 4 Diagnoses SHAQ (stress urinary incontinence, female) N39.3 Intrinsic sphincter deficiency N36.42 Overactive bladder N32.81 Vaginal atrophy N95.2 Constipation K59.00 Assessment and Plan Assessment and Plan (1) SHAQ (stress urinary incontinence, female): Status: Acute (2) Intrinsic sphincter deficiency: Status: Acute (3) Overactive bladder: Status: Acute (4) Vaginal atrophy: Status: Acute (5) Constipation: Status: Acute Orders: Orders POC UA Auto w/o Microscopy Today N39.3 - Stress incontinence (female) (male) Patient Instructions: urine culture today continue with procedure as scheduled Plan Details Follow Up: 2 Weeks (Bulkamid f/u) Clinical Quality Measures Falls Risk Screening/Assistive Devices Have you fallen in the past year?: No
--- NOTE | 2024-09-26 08:12 | DCINST_ITS ---
Discharge Instructions Diet Discharge Diet: No restrictions Activity Discharge Activity: Return to Normal Activity (no strenuous activity for the next 2 days, then normal activity) Dressing / Incision Call your doctor if your incision/area has: Continuous Slow Oozing, Sudden Increased Bleeding and Foul Smelling Discharge Call your doctor if you observe: Fever of 101 or Higher, Inability to urinate and Inability to have a bowel movement Follow Up Care Please Follow Up With: Jenny Correa MD When: In the office next week. Test Results: Test results from this visit will be discussed in further detail at your follow- up appointment, if applicable. Discharge Plan Admission Attending Provider: Jenny Correa Primary Care Provider: AMADOR BILLINGS Instructions Print Language: Amharic Discharge Orders/Prescriptions Prescriptions: Continued atorvastatin 80 mg tablet 80 mg PO DAILY citalopram 40 mg tablet 40 mg PO DAILY albuterol sulfate 90 mcg/actuation HFA aerosol inhaler 2 puff INHALATION Q4H PRN PRN (Reason: wheezing) bupropion HCl 150 mg tablet extended release 24 hr 150 mg PO DAILY budesonide-formoterol 160-4.5 mcg/actuation HFA aerosol inhaler 2 puff INHALATION BID PRN (Reason: wheezing) gabapentin 300 mg capsule 300 mg PO DAILY aspirin [Ban Chewable Aspirin] 81 mg tablet,chewable 1 tab PO DAILY meloxicam 15 mg tablet 15 mg PO DAILY PRN (Reason: moderate pain) acetaminophen 500 mg tablet 500 mg PO Q6H PRN (Reason: fever or pain) ondansetron 8 mg tablet,disintegrating 8 mg PO Q8H PRN PRN (Reason: nausea and vomiting) moxifloxacin 0.5 % drops 1 drp RIGHT EYE 4X/DAY Referrals / Follow Up: AMADOR BILLINGS [Other] Disposition Disposition (needs filled in before D/C Order can be placed): Home, Self Care
[2024-09-26] MEDS: Lidocaine 1% (5 ml sdv) 5 ML Vial 6 ML IV (08:26)
[2024-09-26] MEDS: Lactated Ringers 250 ML IV (08:30)
[2024-09-26] MEDS: Cefazolin 1 GM/5 ML Vial 4 GM IV (08:30)
--- NOTE | 2024-09-26 08:47 | PCM.POST.ANE ---
Anesthesia: Postop Eval I Current Vital Signs Temperature: 36.4 F Pulse Rate: 87 Blood Pressure: 98/58 Respiratory Rate: 18 Pulse Ox: 97 Oxygen Delivery Method: Airvo Oxygen Flow Rate (L/min): 6 Assessment Airway patent: Yes Spontaneous unlabored respirations: Yes Mental status: Asleep nausea: No Vomiting: No Anesthesia Complication: No Fluid Hydration Crystalloid volume administer (ml): 500 Total IV fluid infused: 500 Progress Note Anesthesia document: Postop Eval 1 completed: Yes
--- NOTE | 2024-09-26 10:47 | OP.PCM_ITS ---
Operative Report (Standard) Operative Information Date of Procedure: 09/26/24 Pre-Operative Diagnosis: Intrinsic sphincter deficiency, stress urinary incontinence Post-Operative Diagnosis: Same Surgery/Procedure Performed: Bulkamid injection, cystoscopy architectural manager: No Type of Anesthesia: MAC RN Documented Start/Stop Times: Operation Date: 09/26/24 08:15 Case Time Into Pre-Op 09/26/24 06:58 Anesthesia Start 09/26/24 08:19 Into Room 09/26/24 08:19 Procedure Start 09/26/24 08:31 Procedure End 09/26/24 08:35 Anesthesia End 09/26/24 08:39 Out of Room 09/26/24 08:39 Into Recovery 09/26/24 08:44 Into Phase II Recovery 09/26/24 08:59 Out of Recovery 09/26/24 08:59 Out of Phase II 09/26/24 09:34 Procedure Start Time: 08:31 Procedure Stop Time: 08:35 Select all DRAINS/GRAFTS/IMPLANTS that apply: Implanted device Implanted device details: Bulkamid injection Estimated Blood Loss: <5cc Specimen collected: No Description of surgery: The patient is a 69-year-old female who had significant success with her first Bulkamid injection and now presents for repeat injection. Informed consent was obtained. She was taken to the operating room and placed on the operating room table. Anesthesia monitored the head, neck, airway, IV access and vital signs throughout the case. Once anesthesia was appropriately administered, she was placed into dorsolithotomy position was prepped and draped in usual sterile fashion. Using a red rubber catheter the bladder was then emptied. The Bulkamid scope was then utilized with the sheath to enter into the urethra where the needle was advanced with the bevel in the medial position to the 2 cm kiara. The entire apparatus was then brought back and at that point the needle was inserted 1 cm in a flat position and one half of a syringe was injected. This was done at the 7 o'clock position. This process was then repeated at the 5:00, 1:00 and 11:00 positions. The tissue appeared to be well coapted at this time. The scope was removed. The patient was awakened and taken to the recovery room in good condition. There were no complications during this procedure. Surgical Findings: Bulkamid injection, no issues Complications Complications: No Admit VTE Documentation VTE Present on Admission: Yes VTE Mechan Device Prophylaxis: SCD's VTE Pharm Prophylaxis ordered?: No Reason prophylaxis not ordered: Treatment Not Indicated
== END 2024-09-26 09:35 | disposition home or self-care (01) ==
LOC: SDC 06:55 → AC 06:57
PROVIDERS: Referring Provider Urology; Visit Provider Urology
PROC: 3E0K8GC Introduction of Other Therapeutic Substance into Genitourinary Tract, Via Natural or Artificial Opening Endoscopic (ICD-10-PCS; CPT 52287; principal; 2024-09-26 08:05)
DX: N39.3 Stress incontinence (female) (male) (principal); K59.00 Constipation, unspecified; N32.81 Overactive bladder; Z87.891 Personal history of nicotine dependence; N36.42 Intrinsic sphincter deficiency (ISD); J45.909 Unspecified asthma, uncomplicated; N95.2 Postmenopausal atrophic vaginitis; Z79.899 Other long term (current) drug therapy
CPT/HCPCS: 51715; 00910; L8606